=== PATIENT | male | born 1950 ===

== ENCOUNTER 2020-07-13 12:11 | Outpatient (REF) | payer MEDICARE, SELFPAY ==
[2020-07-18 12:10] LABS: Testosterone, Total 400 ng/dL (250-1100)
== END 2020-07-13 12:12 | disposition home or self-care (01) ==
LOC: HO.LAB 12:11
PROVIDERS: Visit Provider Urology
DX: E29.1 Testicular hypofunction (principal); Z12.5 Encounter for screening for malignant neoplasm of prostate
CPT/HCPCS: 36415; 84153; 84403

== ENCOUNTER → 2020-08-12 10:05 | Outpatient (BNVA) | payer MEDICARE, SELFPAY | PROVIDERS: Visit Provider Student in an Organized Health Care Education/Training Program | DX: M19.041 Primary osteoarthritis, right hand (principal); M19.042 Primary osteoarthritis, left hand; G56.03 Carpal tunnel syndrome, bilateral upper limbs | CPT/HCPCS: 99212 ==

== ENCOUNTER → 2020-11-12 12:52 | Outpatient (BNVA) | payer MEDICARE, SELFPAY | PROVIDERS: PCP Nurse Practitioner Primary Care; Visit Provider Student in an Organized Health Care Education/Training Program | DX: M19.042 Primary osteoarthritis, left hand (principal); M19.041 Primary osteoarthritis, right hand; G56.03 Carpal tunnel syndrome, bilateral upper limbs | CPT/HCPCS: 99212 ==

== ENCOUNTER → 2020-11-19 13:10 | Outpatient (BNVA) | payer MEDICARE, SELFPAY | PROVIDERS: PCP Nurse Practitioner Primary Care; Visit Provider Internal Medicine | DX: I25.10 Atherosclerotic heart disease of native coronary artery without angina pectoris (principal); I10 Essential (primary) hypertension; E11.8 Type 2 diabetes mellitus with unspecified complications; E78.5 Hyperlipidemia, unspecified | CPT/HCPCS: 99212 ==

== ENCOUNTER 2020-12-03 07:19 | Outpatient (REF) | payer MEDICARE, SELFPAY ==
--- NOTE | ~2020-12-03 | US_ITS ---
EXAMINATION: US RETROPERITONEAL LIMITED (AORTA) CLINICAL INFORMATION: Nicotine dependence. COMPARISON: None TECHNIQUE: Martinez-scale, color Doppler and spectral Doppler evaluation of the abdominal aorta. FINDINGS: The aorta is normal. The measurements of the aorta in maximum AP and transverse dimensions respectively are as follows: Proximal: 2.2 x 2.7 cm. Mid: 1.7 x 1.8 cm. Distal: 1.6 x 1.6 cm. PSV: 1.51 cm/s. The measurements of the common iliac arteries in maximum AP and TRV dimensions are as follows: Right Common Iliac Artery: 0.9 x 1.3 cm. Left Common Iliac Artery: 0.6 x 0.2 cm. US/US aorta IMPRESSION: No evidence of aneurysmal dilatation of the aorta..
== END 2020-12-03 07:20 | disposition home or self-care (01) ==
LOC: HO.US 07:19
PROVIDERS: Visit Provider Nurse Practitioner Primary Care
DX: Z13.6 Encounter for screening for cardiovascular disorders (principal); F17.210 Nicotine dependence, cigarettes, uncomplicated
CPT/HCPCS: 76775

== ENCOUNTER 2020-12-07 09:49 | Outpatient (REF) | payer MEDICARE, SELFPAY | END 2020-12-07 09:50 | disposition home or self-care (01) | LOC: HO.HOSX 09:49 | PROVIDERS: Visit Provider Orthopaedic Surgery | DX: Z13.89 Encounter for screening for other disorder (principal) ==

== ENCOUNTER 2020-12-09 09:29 | Outpatient (REF) | payer MEDICARE, SELFPAY ==
--- NOTE | ~2020-12-09 | XR_ITS ---
EXAMINATION: XR HAND, LEFT CLINICAL INFORMATION: Pain COMPARISON: Previous x-ray July 2019 TECHNIQUE: PA, lateral, and oblique views of the left hand. FINDINGS: Bone alignment is normal. No acute fracture or dislocation is seen. There is cortical thickening or osteophyte projecting off the radial or lateral side of the radial metaphysis just proximal to the radial styloid that is unchanged. It is uncertain whether this could be related to old trauma. There is evidence of mild arthritis at the IP joints with joint space narrowing and osteophyte formation. Carpal bones are normal. Soft tissues are unremarkable. XR/XR hand LT min 3V IMPRESSION: Mild arthritis at the IP joints.
== END 2020-12-09 09:30 | disposition home or self-care (01) ==
LOC: HO.XRAY 09:29
PROVIDERS: PCP Nurse Practitioner Primary Care; Visit Provider Orthopaedic Surgery
DX: M79.642 Pain in left hand (principal)
CPT/HCPCS: 73130

== ENCOUNTER 2020-12-15 09:51 | Outpatient (REF) | payer MEDICARE, SELFPAY | END 2020-12-15 09:52 | disposition home or self-care (01) | LOC: HO.LAB 09:51 | PROVIDERS: Visit Provider Internal Medicine | DX: Z20.822 Contact with and (suspected) exposure to COVID-19 (principal) | CPT/HCPCS: 36415; C9803; U0003; U0005 ==

== ENCOUNTER 2021-01-28 08:46 | Outpatient (REF) | payer MEDICARE, SELFPAY ==
--- NOTE | 2021-01-28 08:51 | EMG_ITS ---
Bilateral median and ulnar motor and sensory studies were performed. Bilateral radial sensory study was performed and paraspinal muscles were tested with a needle. 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 It was also somewhat asymmetric. I recommend investigating for underlying autoimmune or infective etiologies. MD BRITANY Douglas/ELBA / [id number]
== END 2021-01-28 08:47 | disposition home or self-care (01) ==
LOC: HO.NEURO 08:46
PROVIDERS: Visit Provider Student in an Organized Health Care Education/Training Program
DX: G56.03 Carpal tunnel syndrome, bilateral upper limbs (principal)
CPT/HCPCS: 95886; 95911

== ENCOUNTER 2021-02-02 11:35 | Outpatient (REF) | payer MEDICARE, SELFPAY ==
[2021-02-02 13:00] LABS: MANUAL DIFF FLAG NO
[2021-02-02 13:08] LABS: Basophils Absolute Auto 0.1 X10*3/uL (0.0-0.2); Basophils Percent Auto 0.5 % (0-2); Eosinophils Absolute Auto 0.2 X10*3/uL (0.0-0.4); Eosinophils Percent Auto 1.8 % (0-4); Hematocrit 42.5 % (42-52); Hemoglobin 13.9 g/dl (14.0-18.0); Imm Gran Abs Auto 0.04 X10*3/uL (0.00-0.03); Imm Gran Pct Auto 0.4 % (0.0-0.4); Lymphocytes Absolute Auto 2.2 X10*3/uL (1.2-4.9); Lymphocytes Percent Auto 21.9 % (20-40); Mean Corpuscular HGB Conc 32.7 g/dl (31.0-36.0); Mean Corpuscular Hemoglobin 32.4 pg (27.0-33.0); Mean Corpuscular Volume 99.1 fL (80-98); Mean Platelet Volume 10.4 fL (9.4-12.4); Monocytes Absolute Auto 0.8 X10*3/uL (0.1-1.2); Monocytes Percent Auto 8.1 % (2-11); Neutrophils Absolute Auto 6.8 X10*3/uL (2.0-8.3); Neutrophils Percent Auto 67.3 % (45-73); Platelet Count 225 X10*3/uL (160-400); Red Blood Count 4.29 X10*6/uL (4.60-5.80); Red Cell Distribution Width 13.2 % (11.0-16.0); White Blood Count 10.1 X10*3/uL (4.8-10.8)
[2021-02-02 13:32] LABS: Alanine Aminotransferase 18 U/L (0-40); Albumin Level 4.1 g/dL (3.5-5.0); Alkaline Phosphatase 103 U/L (39-117); Anion Gap 12 (12-20); Aspartate Amino Transferase 19 U/L (5-37); Bilirubin Total 0.9 mg/dL (0.0-1.0); Blood Urea Nitrogen 24 mg/dL (9-16); C Reactive Protein 0.06 mg/dL (< or = 0.50); Calcium 9.5 mg/dL (8.4-10.2); Carbon Dioxide 29 mmol/L (22-29); Chloride 103 mmol/L (96-108); Estimated Glomerular Filt Rate 55; Glucose Random 126 mg/dL (60-115); Potassium 5.2 mmol/L (3.3-5.1); Rheumatoid Factor < 15.0 IU/mL (<15.0); Sodium 139 mmol/L (135-145); Total Protein 6.3 g/dL (6.5-8.0)
[2021-02-02 14:34] LABS: Erythrocyte Sedimentation Rate 14 MM/HR (0-15)
[2021-02-03 10:27] LABS: Antibody to SS-A Antigen <1.0 NEG AI (<1.0 NEG); Antibody to SS-B Antigen <1.0 NEG AI (<1.0 NEG)
[2021-02-03 15:22] LABS: Cyclic Citrullinated Peptide <16 UNITS
[2021-02-08 16:02] LABS: Anti Nuclear Antibody Screen NEGATIVE (NEGATIVE)
== END 2021-02-02 11:36 | disposition home or self-care (01) ==
LOC: HO.LAB 11:35
PROVIDERS: Absent Provider Internal Medicine Nephrology; PCP Nurse Practitioner Primary Care; Referring Provider Student in an Organized Health Care Education/Training Program; Visit Provider Nurse Practitioner Primary Care
DX: I12.9 Hypertensive chronic kidney disease with stage 1 through stage 4 chronic kidney disease, or unspecified chronic kidney disease (principal); N18.30 Chronic kidney disease, stage 3 unspecified; E78.5 Hyperlipidemia, unspecified; I73.9 Peripheral vascular disease, unspecified; M19.041 Primary osteoarthritis, right hand; E11.29 Type 2 diabetes mellitus with other diabetic kidney complication; E11.22 Type 2 diabetes mellitus with diabetic chronic kidney disease
CPT/HCPCS: 36415; 80053; 82550; 85025; 85652; 86038; 86039; 86140; 86200; 86235; 86431

== ENCOUNTER 2021-02-12 09:35 | Day surgery (SDC) | payer MEDICARE, SELFPAY ==
--- NOTE | ~2021-02-12 | FL_ITS ---
EXAMINATION: FLUOROSCOPY-GUIDED LUMBAR PUNCTURE CLINICAL INFORMATION: Peripheral neuropathy. COMPARISON: None TECHNIQUE: Following explaining fluoroscopy-guided lumbar puncture procedure, benefits and risk, a written consent was obtained. Patient was placed prone on fluoroscopy table and and a marker placed at the site of puncture. Low back area and the marked site was cleaned and draped in usual sterile manner. 1% lidocaine was injected at puncture site. A 20-gauge spinal needle was then inserted from a left-sided approach intrathecally at the L2-L3 disc level. After observing CSF return, patient was quickly placed in left lateral decubitus view. Opening CSF pressure was obtained. Subsequently fluid was collected in 4 test tubes. Postprocedure stylet was reintroduced and needle removed. Complete hemostasis achieved at puncture site. Patient tolerated procedure extremely well. FINDINGS: On preliminary AP and lateral imaging of lumbar spine there are bilateral pedicular screws at L4 and S1 vertebra with integrating felicia for fusion. The opening CSF pressure measures 10 cm of water. Approximately 9 mL of clear CSF fluid was collected in 4 test tubes and sent to lab as per physician request. FLUOROSCOPY TIME: 0.7 minutes DOSE AREA PRODUCT: 7.138 uGy-m2 (microgray-meter squared) FL/FL guided lumbar puncture LP IMPRESSION: Successful fluoroscopy-guided lumbar puncture performed with opening CSF pressure of 10 cm of water. Clear 9 mL CSF collected in 4 test tubes and sent to lab for further evaluation as per physician request.
[2021-02-12 10:00] VITALS: BP 123/59; PULSE 71; RESP 18; TEMP 36.3; O2SAT 95
[2021-02-12 10:08] LABS: Glucose, Whole Blood 100 mg/dL (60-115)
[2021-02-12 10:21] LABS: MANUAL DIFF FLAG NO
[2021-02-12 10:23] LABS: Basophils Absolute Auto 0.1 X10*3/uL (0.0-0.2); Basophils Percent Auto 0.5 % (0-2); Eosinophils Absolute Auto 0.3 X10*3/uL (0.0-0.4); Eosinophils Percent Auto 2.3 % (0-4); Hematocrit 40.5 % (42-52); Hemoglobin 13.5 g/dl (14.0-18.0); Imm Gran Abs Auto 0.04 X10*3/uL (0.00-0.03); Imm Gran Pct Auto 0.4 % (0.0-0.4); Lymphocytes Absolute Auto 2.8 X10*3/uL (1.2-4.9); Lymphocytes Percent Auto 26.5 % (20-40); Mean Corpuscular HGB Conc 33.3 g/dl (31.0-36.0); Mean Corpuscular Hemoglobin 33.1 pg (27.0-33.0); Mean Corpuscular Volume 99.3 fL (80-98); Mean Platelet Volume 9.6 fL (9.4-12.4); Monocytes Absolute Auto 0.9 X10*3/uL (0.1-1.2); Monocytes Percent Auto 8.7 % (2-11); Neutrophils Absolute Auto 6.6 X10*3/uL (2.0-8.3); Neutrophils Percent Auto 61.6 % (45-73); Platelet Count 209 X10*3/uL (160-400); Red Blood Count 4.08 X10*6/uL (4.60-5.80); Red Cell Distribution Width 12.7 % (11.0-16.0); White Blood Count 10.7 X10*3/uL (4.8-10.8)
[2021-02-12 10:26] VITALS: BMI 31.4
[2021-02-12 10:31] LABS: INTERNATIONAL NORM RATIO 1.1 (0.9-1.1); Prothrombin Time 12.8 SEC (10.8-13.0)
[2021-02-12 10:33] LABS: Partial Thromboplastin Time 35.2 SEC (24.1-38.0)
[2021-02-12 12:15] VITALS: BP 124/75; PULSE 67; RESP 17; TEMP 37.1; O2SAT 96
[2021-02-12 12:45] VITALS: BP 126/67; PULSE 86; RESP 17; O2SAT 95
--- NOTE | 2021-02-12 13:20 | PC.NURSE ---
This lyric writer ordered patient lunch intructed patient to remain flat while eating but continued to sit up and not following directions. Told this rn he wants to leave call the doctor. Dr. Amaya notified and stated if patient insist on leaving he has to leave AMA. Yariel the bilingual interpreter at bedside to assit with explaining to patient.
[2021-02-12 13:22] LABS: CSF Appearance Clear, Colorless; CSF Tube # 1
[2021-02-12 13:31] LABS: Glucose CSF 67 mg/dL; Total Protein CSF 45.3 mg/dL (15-45)
[2021-02-12 13:42] VITALS: BP 118/59; PULSE 78; RESP 17; O2SAT 96
[2021-02-12 14:11] LABS: Appearance CSF CLEAR; CSF Tube # 4; Color CSF COLORLESS; Lymphocytes CSF 100 %; Red Blood Cell CSF 1 MM*3; White Blood Cell CSF 1 MM*3
[2021-02-12 14:14] VITALS: BP 105/37; PULSE 69; RESP 18; O2SAT 95
[2021-02-12 14:44] VITALS: BP 124/64; PULSE 69; RESP 18; TEMP 36.7; O2SAT 96
== END 2021-02-12 15:05 | disposition home or self-care (01) ==
PROVIDERS: Psychiatry & Neurology Neurology; Radiology Diagnostic Radiology; PCP Nurse Practitioner Primary Care; Visit Provider Radiology Diagnostic Radiology
PROC: 009U3ZZ Drainage of Spinal Canal, Percutaneous Approach (ICD-10-PCS; CPT 62270; principal; 2021-02-12 11:00)
DX: G62.9 Polyneuropathy, unspecified (principal); E11.22 Type 2 diabetes mellitus with diabetic chronic kidney disease; Z79.4 Long term (current) use of insulin; N18.9 Chronic kidney disease, unspecified; G25.81 Restless legs syndrome
CPT/HCPCS: 36415; 62328; 82945; 82947; 84157; 85025; 85610; 85730; 87015; 87070; 87205; 89051

== ENCOUNTER → 2021-03-09 12:45 | Outpatient (BNVA) | payer MEDICARE, SELFPAY | PROVIDERS: Visit Provider Urology | DX: Z13.89 Encounter for screening for other disorder (principal) | CPT/HCPCS: Q3014 ==

== ENCOUNTER 2021-04-13 21:18 | Emergency (ER) | payer MEDICARE, SELFPAY ==
--- NOTE | ~2021-04-13 | XR_ITS ---
EXAMINATION: XR CHEST CLINICAL INFORMATION: Bilateral lower extremity swelling. COMPARISON: 12/30/2018 TECHNIQUE: PA and lateral views of the chest were obtained. FINDINGS: Linear opacity and volume loss in the right lung base likely correspond atelectasis in the right middle lobe. Superimposed consolidation is possible. No pleural effusion. Left lung is clear. No pneumothorax. Cardiac and mediastinal contours are normal aside from calcific atherosclerosis in the thoracic aorta. Pulmonary vascular structures normal. No acute osseous findings XR/XR chest 2V IMPRESSION: Linear platelike atelectasis in the lateral segment of the right middle lobe.
[2021-04-13 21:20] VITALS: BP 109/53; PULSE 83; RESP 18; TEMP 37.1; O2SAT 95; BMI 31.4
--- NOTE | 2021-04-13 22:23 | ECG_ITS ---
Test Reason : EDEMA Blood Pressure : / mmHG Vent. Rate : 071 BPM Atrial Rate : 071 BPM P-R Int : 186 ms QRS Dur : 078 ms QT Int : 378 ms P-R-T Axes : 045 019 034 degrees QTc Int : 410 ms Sinus rhythm with Premature atrial complexes Otherwise normal ECG When compared with ECG of 14-MAR-2020 11:00, Premature atrial complexes are now Present Referred By: Phil Bernal Electronically Signed By:TRACEY SHARP
--- NOTE | 2021-04-14 00:32 | PC.NURSE ---
IV PLACED TO LEFT FA, LABS DRAWN TO LAB. PT RESTING IN STRETCHER W/O COMPLAINTS. WILL CONTINUE TO MONITOR PT.
[2021-04-14 00:33] LABS: MANUAL DIFF FLAG NO
[2021-04-14 00:34] LABS: Basophils Absolute Auto 0.1 X10*3/uL (0.0-0.2); Basophils Percent Auto 0.5 % (0-2); Eosinophils Absolute Auto 0.3 X10*3/uL (0.0-0.4); Eosinophils Percent Auto 2.9 % (0-4); Hematocrit 38.2 % (42-52); Hemoglobin 13.2 g/dl (14.0-18.0); Imm Gran Abs Auto 0.05 X10*3/uL (0.00-0.03); Imm Gran Pct Auto 0.5 % (0.0-0.4); Lymphocytes Absolute Auto 3.2 X10*3/uL (1.2-4.9); Lymphocytes Percent Auto 30.6 % (20-40); Mean Corpuscular HGB Conc 34.6 g/dl (31.0-36.0); Mean Corpuscular Hemoglobin 33.1 pg (27.0-33.0); Mean Corpuscular Volume 95.7 fL (80-98); Mean Platelet Volume 9.7 fL (9.4-12.4); Monocytes Percent Auto 9.7 % (2-11); Neutrophils Absolute Auto 5.8 X10*3/uL (2.0-8.3); Neutrophils Percent Auto 55.8 % (45-73); Platelet Count 200 X10*3/uL (160-400); Red Blood Count 3.99 X10*6/uL (4.60-5.80); Red Cell Distribution Width 12.8 % (11.0-16.0); White Blood Count 10.3 X10*3/uL (4.8-10.8)
[2021-04-14 01:02] LABS: Alanine Aminotransferase 12 U/L (0-40); Albumin Level 3.8 g/dL (3.5-5.0); Alkaline Phosphatase 96 U/L (39-117); Anion Gap 13 (12-20); Aspartate Amino Transferase 15 U/L (5-37); Bilirubin Total 0.6 mg/dL (0.0-1.0); Blood Urea Nitrogen 29 mg/dL (9-16); Calcium 8.9 mg/dL (8.4-10.2); Carbon Dioxide 27 mmol/L (22-29); Chloride 104 mmol/L (96-108); Creatinine Clr Calc Pharmacy 43.8; Estimated Glomerular Filt Rate 43; Glucose Random 107 mg/dL (60-115); Potassium 4.5 mmol/L (3.3-5.1); Sodium 139 mmol/L (135-145); Total Protein 6.1 g/dL (6.5-8.0)
[2021-04-14 01:07] LABS: B Type Natriuretic Peptide < 10 pg/mL (<100); Troponin-I High Sensitivity 13.3 ng/L (<3.5-35.0)
[2021-04-14] MEDS: Acetaminophen 325 MG TABLET 975 MG PO (01:15)
--- NOTE | 2021-04-14 01:24 | ED.GENADULT ---
HPI - General Adult General Chief complaint: Extremity Injury, Lower Stated complaint: swollen feet Time Seen by Provider: 04/13/21 22:15 Source: patient Mode of arrival: ambulatory Limitations: no limitations History of Present Illness HPI narrative: 71-year-old male who presents emergency department for evaluation of bilateral lower extremity swelling x1 week. The patient states that he has noted a gradual onset of increased swelling in his lower extremities. He states that today is having pain in his legs secondary to swelling, describes the pain as a constant, dull ache which is worse with movement. He denied chest pain, orthopnea or dyspnea on exertion. He states he has had a cough which is occasionally productive of clear to green sputum. He denied fever or chills. Patient states that he had similar swelling in his legs approximately 1 year prior. He states he does have some mild shortness of breath and used inhaler at home which improved his symptoms. Related Data Home Medications Medication Instructions Recorded Confirmed acetaminophen 500 mg tablet 500 mg PO Q6H PRN 08/12/20 03/09/21 aspirin 81 mg tablet,delayed 81 mg PO DAILY 08/12/20 03/09/21 release cholecalciferol (vitamin D3) 50 50 mcg PO DAILY 08/12/20 03/09/21 mcg (2,000 unit) capsule cilostazol 100 mg tablet 100 mg PO BID 08/12/20 03/09/21 citalopram 20 mg tablet 20 mg PO DAILY 08/12/20 03/09/21 docusate sodium 100 mg capsule 100 mg PO DAILY 08/12/20 03/09/21 ferrous sulfate 325 mg (65 mg 325 mg PO BID 08/12/20 03/09/21 iron) tablet hydrochlorothiazide 12.5 mg tablet 12.5 mg PO DAILY 08/12/20 03/09/21 insulin aspart U-100 100 unit/mL 5 unit SUBCUT DIRECTED ml 08/12/20 03/09/21 (3 mL) subcutaneous pen insulin glargine 100 unit/mL 10 unit SUBCUT DIRECTED ml 08/12/20 03/09/21 subcutaneous solution loratadine 10 mg tablet 10 mg PO DAILY 08/12/20 03/09/21 simvastatin 20 mg tablet 20 mg PO DAILY 08/12/20 03/09/21 tamsulosin 0.4 mg capsule 0.4 mg PO DAILY 08/12/20 03/09/21 testosterone 20.25 mg/1.25 gram 2 pump TOPICAL DAILY 08/12/20 03/09/21 (1.62 %) transdermal gel pump trazodone 100 mg tablet 200 mg PO BEDTIME PRN tab 08/12/20 03/09/21 amlodipine 5 mg tablet 5 mg PO QAM 11/19/20 03/09/21 calcitriol 0.5 mcg capsule 0 mcg PO 11/19/20 03/09/21 gabapentin 600 mg tablet 600 mg PO BEDTIME 11/19/20 03/09/21 insulin glargine 100 unit/mL (3 8 unit SUBCUT QAM 11/19/20 03/09/21 mL) subcutaneous pen losartan 50 mg tablet 50 mg PO DAILY tab 11/19/20 03/09/21 pramipexole 1 mg tablet 1 mg PO BEDTIME 11/19/20 03/09/21 pravastatin 40 mg tablet 40 mg PO BEDTIME 11/19/20 03/09/21 alcohol swabs 0 pad TOPICAL 03/09/21 03/09/21 blood sugar diagnostic #10 ea 03/09/21 03/09/21 enalapril maleate 20 mg tablet 20 mg PO 03/09/21 03/09/21 ergocalciferol (vitamin D2) 1,250 1,250 mcg PO QWEEK 03/09/21 03/09/21 mcg (50,000 unit) capsule hydrocortisone 2.5 % topical cream TOPICAL BID 03/09/21 03/09/21 with perineal applicator lancets 33 gauge #100 ea 03/09/21 03/09/21 lanolin alcohols-mineral appl TOPICAL 03/09/21 03/09/21 oil-w.petrolatum-ceresin topical cream lanolin-mineral oil lotion TOPICAL 03/09/21 03/09/21 pen needle, diabetic 31 gauge x #50 ea 03/09/21 03/09/21/ sennosides 8.6 mg tablet 17.2 mg PO DAILY PRN 03/09/21 03/09/21 Previous Rx's Medication Instructions Recorded arm brace #2 ea 08/12/20 tramadol 50 mg tablet 50 mg PO TID #90 tab 10/13/20 testosterone 20.25 mg/1.25 gram 2 pump TRANSDERMAL DAILY 30 Days 03/09/21 (1.62 %) transdermal gel pump #75 g benzonatate 200 mg PO TID PRN 4 Days #12 cap 04/14/21 furosemide [Lasix] 40 mg PO DAILY #14 tab 04/14/21 Allergies Allergy/AdvReac Type Severity Reaction Status Date / Time No Known Allergies Allergy Verified 04/13/21 21:20 [No Known Allergies*] Review of Systems Review of Systems: Yes all other systems are reviewed and are negative [facility] Past Medical History [facility] Narrative: social history: The patient occasionally smokes cigarettes times many years. He denies alcohol and drug use. Medical History Atherosclerotic cardiovascular disease Essential hypertension Other and unspecified hyperlipidemia Primary osteoarthritis, left hand Primary osteoarthritis, right hand Type 2 diabetes mellitus with unspecified complications Surgical History History of cardiac catheterization (~11/06/18) Family History Family History Mother No problems noted. Mother No problems noted. Social History Social History Alcohol intake: never Advance Directives: No Advance Directives Information Provided: Yes Physical Exam Vital Signs: Vital Signs: Last Vital Signs Temp 98.7 F 04/13/21 21:20 Pulse 83 04/13/21 21:20 Resp 18 04/13/21 21:20 BP 109/53 L 04/13/21 21:20 Pulse Ox 95 04/13/21 21:20 Body Mass Index 31.4 Const: General: cooperative and healthy appearing Orientation/consciousness: oriented to person and oriented to place Limitations: no limitations HENMT: Head: Yes normal to inspection, Yes normocephalic and Yes atraumatic Ears: external ears normal General nose exam: Normal external nose present Face and sinus: Yes normal facial exam Mouth: Normal oral and palatal mucosa present Throat: Yes posterior oropharynx normal Eyes: Periorbital: periorbital findings normal Eyelids: Yes eyelids normal Conjunctivae: conjunctivae normal Sclerae: sclerae normal Corneas: corneas normal Pupils: Equal, round and reactive pupils present Direct Ophthalmoscopy: normal light reflex Neck: Neck: Yes full ROM, Yes no lymphadenopathy, Yes no meningeal signs, Yes trachea midline and Yes supple Chest: Chest palpation & inspection: normal inspection of the chest and normal palpation of entire chest wall Resp: Effort & Inspection: normal respiratory effort and able to speak in complete sentences Auscultation: clear to auscultation bilaterally Cardio: Rate: regular rate Rhythm: regular rhythm Heart sounds: S1 normal heart sound present, S2 normal heart sound present and no murmurs GI: Inspection: Yes normal to inspection Palpation (GI): Soft to palpation, nontender, no guarding, not rigid and No hepatosplenomegaly present : General: Yes no CVA tenderness Back/Spine/Pelvis: Back: no CVA tenderness Cervical Spine: normal cervical lordosis Thoracic/Lumbar Spine: thoracic and lumbar spine normal to inspection Skin: Lesions: no lesions Rashes: no rashes Wounds: no wounds Neuro: General: oriented to person, oriented to place and no meningeal signs Cranial nerves: Yes CN's II-XII intact bilaterally and Yes Equal, round and reactive pupils present Cognition (Neuro): normal cognition Motor exam (neuro): 5/5 motor strength present throughout Extrem: Other: 1+ pitting edema to the lower extremities to just below the knee, symmetric bilaterally General: Yes full ROM Psych: Appearance: well kempt Mental Status: mental status grossly normal Speech and movement: Normal speech and movement present Affect: normal affect Attitude: cooperative Thought process: Normal thought process present Thought content: Normal thought content present Course Course Course Narrative: 48-year-old male who presents emergency department for evaluation of bilateral peripheral edema x1 week with cough and shortness of breath. Physical examination did reveal bilateral 1+ pitting edema which was symmetric. Exam was otherwise unremarkable. The laboratory evaluation did reveal an elevated BUN and creatinine of 29 and 1.61, this is slightly above his baseline. Twelve EKG was unremarkable. the patient will be started on Lasix 40 mg once a day for 2 weeks to treat his peripheral edema. 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 Patient also has a cough and is requesting a cough suppressant therefore he will be started on Tessalon Perles 200 mg 3 times a day as needed for cough. The patient was given verbal and printed instructions prior to discharge. The patient was advised to follow-up with their PCP in 2 days and to return to the emergency department if their symptoms get worse or if they develop any new symptoms that are concerning to them Medical Decision Making Lab Data Lab results reviewed: Yes I reviewed the patient's lab results. Result diagrams: 04/14/21 00:22 04/14/21 00:22 Labs: Lab Results 04/14/21 04/14/21 04/14/21 Range/Units 00: 00:22 00:22 WBC 10.3 (4.8-10.8) X10*3/uL RBC 3.99 L (4.60-5.80) X10*6/uL Hgb 13.2 L (14.0-18.0) g/dl Hct 38.2 L (42-52) % MCV 95.7 (80-98) fL MCH 33.1 H (27.0-33.0) pg MCHC 34.6 (31.0-36.0) g/dl RDW 12.8 (11.0-16.0) % Plt Count 200 (160-400) X10*3/uL MPV 9.7 (9.4-12.4) fL Immature Gran % (Auto) 0.5 H (0.0-0.4) % Neut % (Auto) 55.8 (45-73) % Lymph % (Auto) 30.6 (20-40) % Appling % (Auto) 9.7 (2-11) % Eos % (Auto) 2.9 (0-4) % Baso % (Auto) 0.5 (0-2) % Lymph # (Auto) 3.2 (1.2-4.9) X10*3/uL Appling # (Auto) 1.0 (0.1-1.2) X10*3/uL Eos # (Auto) 0.3 (0.0-0.4) X10*3/uL Baso # (Auto) 0.1 (0.0-0.2) X10*3/uL Abs Immat Gran (auto) 0.05 H (0.00-0.03) X10*3/uL Absolute Neuts (auto) 5.8 (2.0-8.3) X10*3/uL Absolute Nucleated RBC 0.000 (0.0-0.012) X10*3/uL Nucleated RBC % (auto) 0.0 (0.0-0.2) /100WBC Sodium 139 (135-145) mmol/L Potassium 4.5 (3.3-5.1) mmol/L Chloride 104 (96-108) mmol/L Carbon Dioxide 27 (22-29) mmol/L Anion Gap 13 (12-20) BUN 29 H (9-16) mg/dL Creatinine 1.61 H (0.5-1.4) mg/dL Estim Creat Clear Calc 43.8 Estimated GFR 43 Random Glucose 107 (60-115) mg/dL Calcium 8.9 D (8.4-10.2) mg/dL Total Bilirubin 0.6 (0.0-1.0) mg/dL AST 15 (5-37) U/L ALT 12 (0-40) U/L Alkaline Phosphatase 96 (39-117) U/L Troponin I High Sens 13.3 (<3.5-35.0) ng/L B-Natriuretic Peptide < 10 (<100) pg/mL Total Protein 6.1 L (6.5-8.0) g/dL Albumin 3.8 (3.5-5.0) g/dL ECG Data Attestation: I personally reviewed and interpreted this ECG as follows: Interpretation: 2239 : Normal sinus rhythm with a rate of 71, normal [place] interval, normal QRS duration, normal QTC interval, no ST segment elevation, no ST segment depression, Q-wave in V1, Occasional PAC, no PVCs , no old EKG for comparison. Discharge Plan Discharge Clinical Impression: Edema, peripheral Patient Disposition: Home, Self-Care Instructions: Edema (ED) Additional Instructions: Your kidney numbers were slightly above your baseline numbers, you should follow-up with your kidney doctor in 2-3 weeks to have these tests repeated. I am starting you on a water pill/diuretic to help get fluid off of your legs. Take Lasix (furosemide) 40 mg once a day for 2 weeks. While you are taking Lasix, you need to restrict the amount of fluid that you take in to help get the fluid out of your legs. If your legs return to a normal size before 2 weeks then you can stop taking the Lasix. Take Tessalon Perles 200 mg, 1 pill 3 times a day as needed for cough. Follow-up with your doctor in 2 days. Please return to the emergency department if your symptoms get worse or if you develop any symptoms that are concerning to you. Prescriptions: New furosemide [Lasix] 40 mg tablet 40 mg PO DAILY Qty: 14 RF: 0 benzonatate 200 mg capsule 200 mg PO TID PRN (Reason: cough) 4 Days Qty: 12 RF: 0 No Action tramadol 50 mg tablet 50 mg PO TID Qty: 90 RF: 5 amlodipine 5 mg tablet 5 mg PO QAM RF: 0 pravastatin 40 mg tablet 40 mg PO BEDTIME RF: 0 pramipexole 1 mg tablet 1 mg PO BEDTIME RF: 0 calcitriol 0.5 mcg capsule 0 mcg PO RF: 0 gabapentin 600 mg tablet 600 mg PO BEDTIME RF: 0 Lantus Solostar U-100 Insulin 100 unit/mL (3 mL) insulin pen 8 unit subcut QAM RF: 0 losartan 50 mg tablet 50 mg PO DAILY RF: 0 aspirin [Adult Low Dose Aspirin] 81 mg tablet,delayed release (DR/EC) 81 mg PO DAILY RF: 0 acetaminophen [Tylenol Extra Strength] 500 mg tablet 500 mg PO Q6H PRNRF: 0 cilostazol 100 mg tablet 100 mg PO BID RF: 0 ferrous sulfate 325 mg (65 mg iron) tablet 325 mg PO BID RF: 0 loratadine [Allergy Relief (loratadine)] 10 mg tablet 10 mg PO DAILY RF: 0 Lantus U-100 Insulin 100 unit/mL solution 10 unit subcut DIRECTED RF: 0 insulin aspart U-100 [Novolog Flexpen U-100 Insulin] 100 unit/mL (3 mL) insulin pen 5 unit subcut DIRECTED RF: 0 tamsulosin 0.4 mg capsule 0.4 mg PO DAILY RF: 0 cholecalciferol (vitamin D3) 50 mcg (2,000 unit) capsule 50 mcg PO DAILY RF: 0 trazodone 100 mg tablet 200 mg PO BEDTIME PRNRF: 0 docusate sodium [Colace] 100 mg capsule 100 mg PO DAILY RF: 0 citalopram 20 mg tablet 20 mg PO DAILY RF: 0 simvastatin 20 mg tablet 20 mg PO DAILY RF: 0 hydrochlorothiazide 12.5 mg tablet 12.5 mg PO DAILY RF: 0 testosterone [AndroGel] 20.25 mg/1.25 gram (1.62 %) gel in metered-dose pump 2 pump topical DAILY RF: 0 (DME) Wrist Brace Large Misc See Rx Instructions .ROUTE .MEDSUPPLY Qty: 2 RF: 0 ergocalciferol (vitamin D2) 1,250 mcg (50,000 unit) capsule 1,250 mcg PO QWEEK RF: 0 (DME) FreeStyle Lite Strips Strip See Rx Instructions strip Not Applicable BID Qty: 10 RF: 0 Minerin Creme Cream topical RF: 0 hydrocortisone 2.5 % cream with perineal applicator topical BID RF: 0 sennosides 8.6 mg tablet 17.2 mg PO DAILY PRN (Reason: constipation) RF: 0 (DME) lancets 33 gauge misc See Rx Instructions ea Not Applicable BID Qty: 100 RF: 0 (DME) pen needle, diabetic 31 gauge x 3/16 needle See Rx Instructions ea .ROUTE BID Qty: 50 RF: 0 alcohol swabs Pads, Medicated 0 pad topical RF: 0 Thera-Derm Lotion topical RF: 0 enalapril maleate 20 mg tablet 20 mg PO RF: 0 testosterone [AndroGel] 20.25 mg/1.25 gram (1.62 %) gel in metered-dose pump 2 pump transdermal DAILY 30 Days Qty: 75 RF: 5
[2021-04-14 01:28] VITALS: BP 134/72; PULSE 71; RESP 17; O2SAT 98
[2021-04-14 02:08] LABS: Appearance Urine CLEAR; Color Urine YELLOW; Glucose Urine UA NEG (NEG); Leukocyte Esterase Urine NEG (NEG); Nitrite Urine NEG (NEG); Specific Gravity - Urine <= 1.005 (1.005-1.025); UACC Culture Trigger NO; Urine Blood NEG (NEG); Urine Ketones NEG (NEG); Urine Protein TRACE MG/DL (NEG-TRACE)
== END 2021-04-14 02:26 | disposition home or self-care (01) ==
PROVIDERS: Emergency Provider Emergency Medicine Emergency Medical Services
DX: R60.0 Localized edema (principal); M79.662 Pain in left lower leg; M79.661 Pain in right lower leg; R06.02 Shortness of breath; I10 Essential (primary) hypertension; E78.49 Other hyperlipidemia; E11.9 Type 2 diabetes mellitus without complications; Z79.82 Long term (current) use of aspirin; Z79.02 Long term (current) use of antithrombotics/antiplatelets; Z79.899 Other long term (current) drug therapy; Z79.4 Long term (current) use of insulin
CPT/HCPCS: 36415; 71046; 80053; 81003; 83880; 84484; 85025; 93005; 99283; 99284

== ENCOUNTER → 2021-04-20 09:05 | Outpatient (BNVA) | payer MEDICARE, SELFPAY | PROVIDERS: Visit Provider Surgery | DX: L72.3 Sebaceous cyst (principal) | CPT/HCPCS: 99202 ==

== ENCOUNTER 2021-06-04 09:48 | Outpatient (REF) | payer MEDICARE, SELFPAY ==
[2021-06-04 10:21] LABS: Hematocrit 37.8 % (42-52); Hemoglobin 12.9 g/dl (14.0-18.0); Mean Corpuscular HGB Conc 34.1 g/dl (31.0-36.0); Mean Corpuscular Volume 96.7 fL (80-98); Mean Platelet Volume 9.8 fL (9.4-12.4); Platelet Count 212 X10*3/uL (160-400); Red Blood Count 3.91 X10*6/uL (4.60-5.80); Red Cell Distribution Width 13.1 % (11.0-16.0); White Blood Count 11.4 X10*3/uL (4.8-10.8)
[2021-06-04 11:07] LABS: Prostate Specific Antigen 2.46 ng/mL (<0.05-4.0)
[2021-06-09 16:06] LABS: Testosterone, Total 195 ng/dL (250-1100)
== END 2021-06-04 09:49 | disposition home or self-care (01) ==
LOC: HO.LAB 09:48
PROVIDERS: PCP Nurse Practitioner Primary Care; Visit Provider Urology
DX: Z12.5 Encounter for screening for malignant neoplasm of prostate (principal); E29.1 Testicular hypofunction; N13.8 Other obstructive and reflux uropathy; N40.1 Benign prostatic hyperplasia with lower urinary tract symptoms
CPT/HCPCS: 36415; 84153; 84403; 85027; 99212

== ENCOUNTER → 2021-06-22 13:46 | Outpatient (BNVA) | payer MEDICARE, SELFPAY | PROVIDERS: PCP Nurse Practitioner Primary Care; Referring Provider Nurse Practitioner Primary Care; Visit Provider Surgery | DX: L72.3 Sebaceous cyst (principal) | CPT/HCPCS: 99212 ==

== ENCOUNTER 2021-06-27 13:00 | Emergency (ER) | payer MEDICARE, SELFPAY ==
[2021-06-27 13:13] VITALS: BP 126/49; PULSE 58; RESP 16; TEMP 36.4; O2SAT 98; BMI 31.4
== END 2021-06-27 16:31 | disposition left against medical advice (07) ==
PROVIDERS: Emergency Provider Emergency Medicine; PCP Nurse Practitioner Primary Care
DX: M79.671 Pain in right foot (principal)
CPT/HCPCS: 99281; 99282

== ENCOUNTER 2021-07-13 10:35 | Outpatient (REF) | payer MEDICARE, SELFPAY ==
[2021-07-13 11:05] VITALS: BMI 31.4
[2021-07-13 11:07] VITALS: BP 144/69; PULSE 88; RESP 20; TEMP 36.8
[2021-07-13 11:52] VITALS: BP 132/62; PULSE 73; RESP 18
--- NOTE | 2021-07-13 11:52 | P.OP_ITS ---
Operative Note Operative Note Date of Service: 07/13/21 Narrative: Preoperative diagnosis: Inclusion cyst left neck, left upper back, and midback Postoperative diagnosis: Same Procedure: Excision of epidermal inclusion cyst left neck, left upper back, and midback Surgeon: Donald Diehl MD Revenue Accountant: No physician Anesthesia: Local Indications for procedure: 71-year-old male patient with several epidermal inclusion cyst which are increasing in size and causing discomfort.. This includes a 2 cm cyst of the left neck, 2 cm cyst of the left upper back and a 2.5 cm cyst of the midback. Operative findings: Epidermal inclusion cyst as noted above without evidence of infection Specimen: Epidermal inclusion cyst x 3 of the left neck, left upper back, midback Estimated blood loss: 10 mL Complications: None Procedure details: Patient was placed in a right lateral decubitus position. The site of surgery as confirmed by the patient as noted above. Informed consent was assured. The skin was prepped with Betadine and draped in a sterile fashion. Local anesthesia consisting of 1% lidocaine with epinephrine was then infiltrated around each cyst. Beginning at the left neck a elliptical incision was created with a scalpel. This was then carried out through subcutaneous tissue and around the cyst wall using scalpel. The cyst was excised and sent to pathology for further examination. After assuring hemostasis the skin was closed using interrupted 4-0 nylon sutures. Attention was then directed to the left upper back cyst were again an elliptical incision oriented transversely was created. This was carried out through subcutaneous tissue and around the cyst wall. Sharp dissection was then used to excise the lesion completely and the lesion was sent to pathology for further examination. Hemostasis was assured using light pressure. Skin was then closed using interrupted 4-0 nylon sutures. Attention was then directed to the midback cyst where again local anesthesia was infiltrated circumferentially elliptical incision created with scalpel oriented longitudinally. The incision was carried down through subcutaneous tissue and around the cyst wall. The cyst wall was found to extend down deep into the subcutaneous tissue and just above muscle fascia. This was all excised and sent to pathology for further examination. After assuring adequate hemostasis the skin was closed using interrupted 4-0 nylon sutures. Sterile dressings consisting of 2 x 2 gauze and Tegaderm were then applied. The patient tolerated the procedure well. Sponge, instrument, needle counts were correct. Patient was discharged to home in stable condition.
== END 2021-07-13 10:36 | disposition home or self-care (01) ==
LOC: HO.MS 10:35
PROVIDERS: PCP Nurse Practitioner Primary Care; Visit Provider Surgery
PROC: (CPT 11422; principal; 2021-07-13 11:00)
DX: L72.0 Epidermal cyst (principal)
CPT/HCPCS: 11422; 11402; 11403; 88304

== ENCOUNTER → 2021-07-23 08:47 | Outpatient (BNVA) | payer MEDICARE, SELFPAY | PROVIDERS: PCP Nurse Practitioner Primary Care; Visit Provider Surgery | DX: M19.042 Primary osteoarthritis, left hand (principal); M19.041 Primary osteoarthritis, right hand; G56.03 Carpal tunnel syndrome, bilateral upper limbs; M25.561 Pain in right knee; E11.9 Type 2 diabetes mellitus without complications; I25.10 Atherosclerotic heart disease of native coronary artery without angina pectoris; I10 Essential (primary) hypertension; E78.5 Hyperlipidemia, unspecified; F17.200 Nicotine dependence, unspecified, uncomplicated; Z98.890 Other specified postprocedural states; Z79.4 Long term (current) use of insulin; Z79.899 Other long term (current) drug therapy | CPT/HCPCS: 99212 ==

== ENCOUNTER 2021-08-18 09:18 | Outpatient (REF) | payer MEDICARE, SELFPAY ==
[2021-08-18 10:31] LABS: Hematocrit 43.8 % (42.0-52.0); Hemoglobin 14.3 g/dl (14.0-18.0); Mean Corpuscular HGB Conc 32.6 g/dl (31.0-36.0); Mean Corpuscular Hemoglobin 32.5 pg (27.0-33.0); Mean Corpuscular Volume 99.5 fL (80.0-98.0); Platelet Count 215 X10*3/uL (160-400); Red Cell Distribution Width 13.2 % (11.0-16.0); White Blood Count 9.6 X10*3/uL (4.8-10.8)
[2021-08-18 10:44] LABS: Anion Gap 10 (12-20); Blood Urea Nitrogen 34 mg/dL (9-16); Calcium 9.5 mg/dL (8.4-10.2); Carbon Dioxide 32 mmol/L (22-29); Chloride 102 mmol/L (96-108); Estimated Glomerular Filt Rate 41; Glucose Random 117 mg/dL (60-115); Potassium 4.9 mmol/L (3.3-5.1); Sodium 139 mmol/L (135-145)
[2021-08-18 10:46] LABS: Cholesterol 119 mg/dL; HDL Cholesterol 37 mg/dL; LDL Cholesterol Calculated 63 mg/dl; Triglycerides 96 mg/dL
[2021-08-18 11:06] LABS: Prostate Specific Antigen 1.19 ng/mL (<0.05-4.0)
[2021-08-18 12:37] LABS: Creatinine Urine 149.09 mg/dL
[2021-08-18 12:43] LABS: Microalbum/Creatinine Ratio Ur 70.4 ug/mg cr
[2021-08-26 16:51] LABS: Testosterone, Total 339 ng/dL (250-1100)
== END 2021-08-18 09:19 | disposition home or self-care (01) ==
LOC: HO.LAB 09:18
PROVIDERS: Absent Provider Urology; PCP Nurse Practitioner Primary Care; Visit Provider Nurse Practitioner Primary Care
DX: Z12.5 Encounter for screening for malignant neoplasm of prostate (principal); E11.22 Type 2 diabetes mellitus with diabetic chronic kidney disease; N18.9 Chronic kidney disease, unspecified; I87.2 Venous insufficiency (chronic) (peripheral); E29.1 Testicular hypofunction
CPT/HCPCS: 36415; 80048; 80061; 82043; 84153; 84403; 85027

== ENCOUNTER 2021-08-23 12:34 | Outpatient (REF) | payer MEDICARE, SELFPAY | END 2021-08-23 12:35 | disposition home or self-care (01) | LOC: HO.LAB 12:34 | PROVIDERS: PCP Nurse Practitioner Primary Care; Visit Provider Internal Medicine | DX: Z20.822 Contact with and (suspected) exposure to COVID-19 (principal) | CPT/HCPCS: C9803; U0003; U0005 ==

== ENCOUNTER → 2021-09-10 13:02 | Outpatient (BNVA) | payer MEDICARE, SELFPAY | PROVIDERS: PCP Nurse Practitioner Primary Care; Visit Provider Urology | DX: E11.69 Type 2 diabetes mellitus with other specified complication (principal); E29.1 Testicular hypofunction; N52.1 Erectile dysfunction due to diseases classified elsewhere | CPT/HCPCS: 99212 ==

== ENCOUNTER 2021-11-26 12:36 | Outpatient (REF) | payer MEDICARE, SELFPAY ==
--- NOTE | ~2021-11-26 | XR_ITS ---
EXAMINATION: XR KNEE, RIGHT CLINICAL INFORMATION: Pain COMPARISON: None TECHNIQUE: Four views of the right knee. FINDINGS: There is loss of medial and patellofemoral compartment joint space with minimal suprapatellar joint effusion. No loose bodies, bony erosive changes or spurring seen. There is mild genu varus deformity of the knee. No acute fracture or lytic process seen. The soft tissues are normal. XR/XR knee RT 3V IMPRESSION: Mild degenerative changes medial and patellofemoral compartment right knee.
== END 2021-11-26 12:37 | disposition home or self-care (01) ==
LOC: HO.XRAY 12:36
PROVIDERS: PCP Nurse Practitioner Primary Care; Visit Provider Nurse Practitioner Family
DX: M25.561 Pain in right knee (principal); M19.042 Primary osteoarthritis, left hand; M19.041 Primary osteoarthritis, right hand; G56.03 Carpal tunnel syndrome, bilateral upper limbs; Z60.2 Problems related to living alone
CPT/HCPCS: 73562; 99212

== ENCOUNTER 2021-12-06 13:56 | Outpatient (REF) | payer MEDICARE, SELFPAY ==
[2021-12-06 14:41] LABS: Hematocrit 38.2 % (42.0-52.0); Hemoglobin 12.7 g/dl (14.0-18.0); Mean Corpuscular HGB Conc 33.2 g/dl (31.0-36.0); Mean Corpuscular Hemoglobin 33.3 pg (27.0-33.0); Mean Corpuscular Volume 100.3 fL (80.0-98.0); Mean Platelet Volume 9.4 fL (9.4-12.4); Platelet Count 223 X10*3/uL (160-400); Red Blood Count 3.81 X10*6/uL (4.60-5.80); Red Cell Distribution Width 13.6 % (11.0-16.0)
[2021-12-06 15:26] LABS: Prostate Specific Antigen 1.41 ng/mL (<0.05-4.0)
[2021-12-10 16:11] LABS: Testosterone, Total 497 ng/dL (250-1100)
== END 2021-12-06 13:57 | disposition home or self-care (01) ==
LOC: HO.LAB 13:56
PROVIDERS: PCP Nurse Practitioner Primary Care; Visit Provider Urology
DX: Z12.5 Encounter for screening for malignant neoplasm of prostate (principal); E29.1 Testicular hypofunction
CPT/HCPCS: 36415; 84153; 84403; 85027

== ENCOUNTER → 2021-12-17 12:58 | Outpatient (BNVA) | payer MEDICARE, SELFPAY | PROVIDERS: PCP Nurse Practitioner Primary Care; Visit Provider Urology | DX: E29.1 Testicular hypofunction (principal); E11.69 Type 2 diabetes mellitus with other specified complication; N52.1 Erectile dysfunction due to diseases classified elsewhere | CPT/HCPCS: 99212 ==

== ENCOUNTER → 2021-12-27 13:10 | Outpatient (BNVA) | payer MEDICARE, SELFPAY | PROVIDERS: PCP Nurse Practitioner Primary Care; Visit Provider Physician Assistant | DX: M25.561 Pain in right knee (principal); M17.11 Unilateral primary osteoarthritis, right knee; M19.042 Primary osteoarthritis, left hand; M19.041 Primary osteoarthritis, right hand; I25.10 Atherosclerotic heart disease of native coronary artery without angina pectoris; I10 Essential (primary) hypertension; F17.210 Nicotine dependence, cigarettes, uncomplicated | CPT/HCPCS: 20610; 99202; J1040 ==

== ENCOUNTER 2021-12-28 11:29 | Emergency (ER) | payer MEDICARE, SELFPAY ==
--- NOTE | ~2021-12-28 | XR_ITS ---
EXAMINATION: XR CHEST CLINICAL INFORMATION: Bilateral lower extremity edema COMPARISON: Previous chest x-ray most recent April 2021 TECHNIQUE: 2 views of the chest were obtained. FINDINGS: The cardiac and mediastinal contours are stable. There is chronic scarring or subsegmental atelectasis at the right lung base. This is similar to previous exam. The lungs are otherwise clear. There is no pleural effusion or pneumothorax. There are degenerative changes of the spine. XR/XR chest 2V IMPRESSION: Chronic scarring or subsegmental atelectasis at the right lung base similar to previous exam. No evidence of CHF.
[2021-12-28 11:51] VITALS: BP 116/44; PULSE 72; RESP 19; TEMP 36.6; O2SAT 95; BMI 30.4
--- NOTE | 2021-12-28 11:56 | ECG_ITS ---
Test Reason : leg swelling Blood Pressure : / mmHG Vent. Rate : 071 BPM Atrial Rate : 071 BPM P-R Int : 192 ms QRS Dur : 062 ms QT Int : 362 ms P-R-T Axes : 046 007 030 degrees QTc Int : 393 ms Sinus rhythm with marked sinus arrhythmia Otherwise normal ECG When compared with ECG of 13-APR-2021 22:39, Premature atrial complexes are no longer Present Referred By: Generic ED Physician Electronically Signed By:Matthew Durham
[2021-12-28 12:17] LABS: Basophils Percent Auto 0.1 % (0-2); Eosinophils Percent Auto 0.1 % (0-4); Hematocrit 41.7 % (42.0-52.0); Hemoglobin 13.8 g/dl (14.0-18.0); Imm Gran Abs Auto 0.06 X10*3/uL (0.00-0.03); Imm Gran Pct Auto 0.5 % (0.0-0.4); Lymphocytes Absolute Auto 0.7 X10*3/uL (1.2-4.9); Lymphocytes Percent Auto 5.4 % (20-40); MANUAL DIFF FLAG SCAN; Mean Corpuscular HGB Conc 33.1 g/dl (31.0-36.0); Mean Corpuscular Hemoglobin 33.5 pg (27.0-33.0); Mean Corpuscular Volume 101.2 fL (80.0-98.0); Mean Platelet Volume 10.9 fL (9.4-12.4); Monocytes Absolute Auto 0.3 X10*3/uL (0.1-1.2); Monocytes Percent Auto 2.2 % (2-11); Neutrophils Absolute Auto 12.2 x10*3/uL (2.0-8.3); Neutrophils Percent Auto 91.7 % (45-73); PLT CLUMP 1; Red Blood Count 4.12 X10*6/uL (4.60-5.80); Red Cell Distribution Width 13.2 % (11.0-16.0); SCAN SMEAR FLAG 1
[2021-12-28 12:35] LABS: B Type Natriuretic Peptide 47 pg/mL (<100); Troponin-I High Sensitivity 11.1 ng/L (<3.5-35.0)
[2021-12-28 12:37] LABS: Platelet Count 161 X10*3/uL (160-400); SLIDE REVIEW VERIFIED; White Blood Count 13.3 X10*3/uL (4.8-10.8)
[2021-12-28 12:50] LABS: Anion Gap 15 (12-20); Blood Urea Nitrogen 27 mg/dL (9-16); Calcium 9.7 mg/dL (8.4-10.2); Carbon Dioxide 25 mmol/L (22-29); Chloride 101 mmol/L (96-108); Creatinine Clr Calc Pharmacy 48.6; Estimated Glomerular Filt Rate 49; Glucose Random 373 mg/dL (60-115); Potassium 5.2 mmol/L (3.3-5.1); Sodium 136 mmol/L (135-145)
== END 2021-12-28 16:28 | disposition left against medical advice (07) ==
PROVIDERS: Emergency Provider Emergency Medicine; PCP Nurse Practitioner Primary Care
DX: M79.89 Other specified soft tissue disorders (principal); M79.662 Pain in left lower leg; M79.661 Pain in right lower leg; I10 Essential (primary) hypertension; E11.9 Type 2 diabetes mellitus without complications
CPT/HCPCS: 36415; 71046; 80048; 83880; 84484; 85025; 93005; 99283

== ENCOUNTER 2022-01-21 12:51 | Outpatient (REF) | payer OTHER, SELFPAY ==
[2022-01-21 13:32] LABS: Hematocrit 39.7 % (42.0-52.0); Hemoglobin 13.5 g/dl (14.0-18.0); Mean Corpuscular Hemoglobin 33.8 pg (27.0-33.0); Mean Corpuscular Volume 99.3 fL (80.0-98.0); Mean Platelet Volume 9.9 fL (9.4-12.4); Platelet Count 240 X10*3/uL (160-400); Red Cell Distribution Width 12.8 % (11.0-16.0); White Blood Count 10.8 X10*3/uL (4.8-10.8)
[2022-01-21 14:09] LABS: Prostate Specific Antigen 0.83 ng/mL (<0.05-4.0)
[2022-01-29 13:26] LABS: Testosterone, Total 172 ng/dL (250-1100)
== END 2022-01-21 12:52 | disposition home or self-care (01) ==
LOC: HO.LAB 12:51
PROVIDERS: PCP Nurse Practitioner Primary Care; Visit Provider Urology
DX: E29.1 Testicular hypofunction (principal)
CPT/HCPCS: 36415; 84153; 84403; 85027

== ENCOUNTER → 2022-03-11 13:06 | Outpatient (BNVA) | payer OTHER, SELFPAY | PROVIDERS: PCP Nurse Practitioner Primary Care; Visit Provider Urology | DX: Z13.89 Encounter for screening for other disorder (principal) | CPT/HCPCS: Q3014 ==

== ENCOUNTER 2022-05-24 13:54 | Outpatient (REF) | payer OTHER, SELFPAY ==
--- NOTE | ~2022-05-24 | XR_ITS ---
EXAMINATION: XR BILATERAL HAND XR CERVICAL SPINE XR LUMBAR SPINE. CLINICAL INFORMATION: Bilateral hand pain, cervical and lumbar spine pain. COMPARISON: None TECHNIQUE: 3 views each hand. Cervical spine 3 views. Lumbar spine 3 views. FINDINGS: Left hand: There is mild loss of PIP and DIP joint space both digits without bony erosive changes. No visible acute fracture, dislocation or subluxation seen. Right hand: There is loss of PIP and DIP joints right hand without bony erosive changes. There are no loose bodies. No acute fracture or dislocation. An old ulnar styloid de process fracture is noted. Cervical spine: There is normal cervical lordosis. The vertebral heights, alignment and disc heights are normal. There is mild left C3-C4, C4-C5 and C5-C6 facet joint hypertrophy. The prevertebral soft tissues are normal. Lumbar spine: There is normal lumbar lordosis. There are bilateral pedicular screws at L4 and S1 vertebra with interconnecting rods. No aggressive lytic or sclerotic process seen. The paravertebral soft tissues are normal. XR/XR hand RT min 3V IMPRESSION: 1. Mild degenerative changes PIP and DIP joints both hands. No visible acute fracture or dislocation. An old styloid process fracture of right wrist is noted 2. Mild levoscoliosis cervical spine with moderate left facet joint arthropathy as described above. No visible acute fracture or dislocation seen. 3. Bilateral pedicle screws at L4 and S1 vertebra with interconnecting rods for posterior fusion.
--- NOTE | ~2022-05-24 | XR_ITS ---
EXAMINATION: XR BILATERAL HAND XR CERVICAL SPINE XR LUMBAR SPINE. CLINICAL INFORMATION: Bilateral hand pain, cervical and lumbar spine pain. COMPARISON: None TECHNIQUE: 3 views each hand. Cervical spine 3 views. Lumbar spine 3 views. FINDINGS: Left hand: There is mild loss of PIP and DIP joint space both digits without bony erosive changes. No visible acute fracture, dislocation or subluxation seen. Right hand: There is loss of PIP and DIP joints right hand without bony erosive changes. There are no loose bodies. No acute fracture or dislocation. An old ulnar styloid de process fracture is noted. Cervical spine: There is normal cervical lordosis. The vertebral heights, alignment and disc heights are normal. There is mild left C3-C4, C4-C5 and C5-C6 facet joint hypertrophy. The prevertebral soft tissues are normal. Lumbar spine: There is normal lumbar lordosis. There are bilateral pedicular screws at L4 and S1 vertebra with interconnecting rods. No aggressive lytic or sclerotic process seen. The paravertebral soft tissues are normal. XR/XR cervical spine 2V IMPRESSION: 1. Mild degenerative changes PIP and DIP joints both hands. No visible acute fracture or dislocation. An old styloid process fracture of right wrist is noted 2. Mild levoscoliosis cervical spine with moderate left facet joint arthropathy as described above. No visible acute fracture or dislocation seen. 3. Bilateral pedicle screws at L4 and S1 vertebra with interconnecting rods for posterior fusion.
--- NOTE | ~2022-05-24 | XR_ITS ---
EXAMINATION: XR BILATERAL HAND XR CERVICAL SPINE XR LUMBAR SPINE. CLINICAL INFORMATION: Bilateral hand pain, cervical and lumbar spine pain. COMPARISON: None TECHNIQUE: 3 views each hand. Cervical spine 3 views. Lumbar spine 3 views. FINDINGS: Left hand: There is mild loss of PIP and DIP joint space both digits without bony erosive changes. No visible acute fracture, dislocation or subluxation seen. Right hand: There is loss of PIP and DIP joints right hand without bony erosive changes. There are no loose bodies. No acute fracture or dislocation. An old ulnar styloid de process fracture is noted. Cervical spine: There is normal cervical lordosis. The vertebral heights, alignment and disc heights are normal. There is mild left C3-C4, C4-C5 and C5-C6 facet joint hypertrophy. The prevertebral soft tissues are normal. Lumbar spine: There is normal lumbar lordosis. There are bilateral pedicular screws at L4 and S1 vertebra with interconnecting rods. No aggressive lytic or sclerotic process seen. The paravertebral soft tissues are normal. XR/XR lumbar spine 2-3V IMPRESSION: 1. Mild degenerative changes PIP and DIP joints both hands. No visible acute fracture or dislocation. An old styloid process fracture of right wrist is noted 2. Mild levoscoliosis cervical spine with moderate left facet joint arthropathy as described above. No visible acute fracture or dislocation seen. 3. Bilateral pedicle screws at L4 and S1 vertebra with interconnecting rods for posterior fusion.
--- NOTE | ~2022-05-24 | XR_ITS ---
EXAMINATION: XR BILATERAL HAND XR CERVICAL SPINE XR LUMBAR SPINE. CLINICAL INFORMATION: Bilateral hand pain, cervical and lumbar spine pain. COMPARISON: None TECHNIQUE: 3 views each hand. Cervical spine 3 views. Lumbar spine 3 views. FINDINGS: Left hand: There is mild loss of PIP and DIP joint space both digits without bony erosive changes. No visible acute fracture, dislocation or subluxation seen. Right hand: There is loss of PIP and DIP joints right hand without bony erosive changes. There are no loose bodies. No acute fracture or dislocation. An old ulnar styloid de process fracture is noted. Cervical spine: There is normal cervical lordosis. The vertebral heights, alignment and disc heights are normal. There is mild left C3-C4, C4-C5 and C5-C6 facet joint hypertrophy. The prevertebral soft tissues are normal. Lumbar spine: There is normal lumbar lordosis. There are bilateral pedicular screws at L4 and S1 vertebra with interconnecting rods. No aggressive lytic or sclerotic process seen. The paravertebral soft tissues are normal. XR/XR hand LT min 3V IMPRESSION: 1. Mild degenerative changes PIP and DIP joints both hands. No visible acute fracture or dislocation. An old styloid process fracture of right wrist is noted 2. Mild levoscoliosis cervical spine with moderate left facet joint arthropathy as described above. No visible acute fracture or dislocation seen. 3. Bilateral pedicle screws at L4 and S1 vertebra with interconnecting rods for posterior fusion.
== END 2022-05-24 13:55 | disposition home or self-care (01) ==
LOC: HO.XRAY 13:54
PROVIDERS: PCP Nurse Practitioner Primary Care; Visit Provider Nurse Practitioner Family
DX: M19.041 Primary osteoarthritis, right hand (principal); M19.042 Primary osteoarthritis, left hand; M25.561 Pain in right knee; G56.01 Carpal tunnel syndrome, right upper limb; M54.50 Low back pain, unspecified; M54.2 Cervicalgia; E11.42 Type 2 diabetes mellitus with diabetic polyneuropathy; Z60.2 Problems related to living alone; Z79.899 Other long term (current) drug therapy; Z79.4 Long term (current) use of insulin
CPT/HCPCS: 72040; 72100; 73130; 99212

== ENCOUNTER 2022-06-21 12:04 | Outpatient (REF) | payer OTHER, SELFPAY ==
[2022-06-21 13:21] LABS: Hematocrit 40.6 % (42.0-52.0); Mean Corpuscular HGB Conc 34.5 g/dl (31.0-36.0); Mean Corpuscular Hemoglobin 33.7 pg (27.0-33.0); Mean Corpuscular Volume 97.8 fL (80.0-98.0); Mean Platelet Volume 9.8 fL (9.4-12.4); Platelet Count 241 X10*3/uL (160-400); Red Blood Count 4.15 X10*6/uL (4.60-5.80); Red Cell Distribution Width 13.1 % (11.0-16.0)
[2022-06-21 14:13] LABS: Prostate Specific Antigen 0.53 ng/mL (<0.05-4.0)
[2022-06-27 17:12] LABS: Testosterone, Total 296 ng/dL (250-1100)
== END 2022-06-21 12:05 | disposition home or self-care (01) ==
LOC: HO.LAB 12:04
PROVIDERS: PCP Nurse Practitioner Primary Care; Visit Provider Urology
DX: Z12.5 Encounter for screening for malignant neoplasm of prostate (principal); E29.1 Testicular hypofunction
CPT/HCPCS: 36415; 84153; 84403; 85027

== ENCOUNTER → 2022-06-24 13:00 | Outpatient (BNVA) | payer OTHER, SELFPAY | PROVIDERS: PCP Nurse Practitioner Primary Care; Visit Provider Urology | DX: E29.1 Testicular hypofunction (principal); E11.69 Type 2 diabetes mellitus with other specified complication; N52.1 Erectile dysfunction due to diseases classified elsewhere | CPT/HCPCS: 99212 ==

== ENCOUNTER 2022-07-07 08:58 | Outpatient (REF) | payer OTHER, SELFPAY ==
--- NOTE | ~2022-07-07 | XR_ITS ---
EXAMINATION: XR SHOULDER, RIGHT CLINICAL INFORMATION: Pain COMPARISON: None TECHNIQUE: 3 of the right shoulder. FINDINGS: Bone alignment is normal. No fracture or dislocation is seen. There is arthritis at the glenohumeral joint. There is a small soft tissue calcifications or ossifications. XR/XR shoulder RT min 2V IMPRESSION: Mild degenerative changes.
== END 2022-07-07 08:59 | disposition home or self-care (01) ==
LOC: HO.HOSX 08:58
PROVIDERS: Visit Provider Physician Assistant
DX: M54.12 Radiculopathy, cervical region (principal); M75.101 Unspecified rotator cuff tear or rupture of right shoulder, not specified as traumatic; E11.9 Type 2 diabetes mellitus without complications
CPT/HCPCS: 20610; 73030; 99212; J1020

== ENCOUNTER → 2022-07-15 13:10 | Outpatient (BNVA) | payer OTHER, SELFPAY | PROVIDERS: PCP Nurse Practitioner Primary Care; Visit Provider Nurse Practitioner Family | DX: M47.812 Spondylosis without myelopathy or radiculopathy, cervical region (principal); M54.12 Radiculopathy, cervical region; M62.838 Other muscle spasm; G56.03 Carpal tunnel syndrome, bilateral upper limbs; M19.042 Primary osteoarthritis, left hand; M19.041 Primary osteoarthritis, right hand; E11.42 Type 2 diabetes mellitus with diabetic polyneuropathy | CPT/HCPCS: 99202 ==

== ENCOUNTER → 2022-07-25 10:49 | Outpatient (BNVA) | payer OTHER, SELFPAY | PROVIDERS: PCP Nurse Practitioner Primary Care; Referring Provider Nurse Practitioner Primary Care; Visit Provider Nurse Practitioner Family | DX: Z01.818 Encounter for other preprocedural examination (principal); K59.04 Chronic idiopathic constipation | CPT/HCPCS: 99202 ==

== ENCOUNTER 2022-08-16 06:28 | Outpatient (REF) | payer OTHER, SELFPAY ==
--- NOTE | ~2022-08-16 | FL_ITS ---
EXAMINATION: XR FLUOROSCOPY WITH IMAGES CLINICAL INFORMATION: Cervical CLAIRE TECHNIQUE: Fluoroscopy Supervised By: Dr. Jose Rollins. Fluoroscopy Time: 0.8 minutes. Cumulative Dose: 8.70 mGy. DAP: 2.11 Gycm2. Images: 7. FL/FL guidance in treatment room FINDINGS/IMPRESSION: Images demonstrate bilateral transforaminal spinal needles at C3-C4, C4-C5 and C5-C6, with contrast along the nerve roots. Please see procedure report.
== END 2022-08-16 06:29 | disposition home or self-care (01) ==
LOC: CF 06:28
PROVIDERS: Visit Provider Anesthesiology
DX: M54.12 Radiculopathy, cervical region (principal); M47.812 Spondylosis without myelopathy or radiculopathy, cervical region; M75.101 Unspecified rotator cuff tear or rupture of right shoulder, not specified as traumatic
CPT/HCPCS: 64490; 64491; J3300

== ENCOUNTER → 2022-08-17 12:25 | Outpatient (BNVA) | payer OTHER, SELFPAY | PROVIDERS: PCP Nurse Practitioner Primary Care; Visit Provider Orthopaedic Surgery | DX: G56.01 Carpal tunnel syndrome, right upper limb (principal); R20.0 Anesthesia of skin; R20.2 Paresthesia of skin | CPT/HCPCS: 99202 ==

== ENCOUNTER → 2022-08-22 11:02 | Outpatient (BNVA) | payer OTHER, SELFPAY | PROVIDERS: PCP Nurse Practitioner Primary Care; Visit Provider Anesthesiology | DX: M47.812 Spondylosis without myelopathy or radiculopathy, cervical region (principal); M19.042 Primary osteoarthritis, left hand; M19.041 Primary osteoarthritis, right hand; M54.12 Radiculopathy, cervical region; E11.42 Type 2 diabetes mellitus with diabetic polyneuropathy; M62.838 Other muscle spasm; G56.03 Carpal tunnel syndrome, bilateral upper limbs | CPT/HCPCS: Q3014 ==

== ENCOUNTER 2022-08-29 09:18 | Day surgery (SDC) | payer OTHER, SELFPAY ==
--- NOTE | 2022-08-29 07:51 | W.PM.OPN ---
Operative Note Operative Note Date of Service: 08/29/22 Narrative: Preop diagnosis: 1. right Carpal tunnel syndrome Postop diagnosis: same Procedure: 1. right Carpal tunnel release Surgeon: Maine Clark MD Anesthesia: local block using 1% lidocaine with epinephrine Findings: Thickened transverse carpal ligament, particularly in the palm. EBL: Less than 5 mL Specimens: None Complications: None Disposition: Brought to recovery room in stable condition Plan: Follow-up for 10-14 days for wound check and suture removal Indications: The patient is 72 years old, with right carpal tunnel syndrome with dense numbness and thenar wasting. The risks and benefits of operative treatment including but not limited to risk of damage to blood vessels, nerves, tendons, infection, persistent pain, persistent symptoms, or possible need for additional surgery were discussed with the patient and the patient wishes to proceed with surgery. Procedure: Once consent was obtained a local block was performed using a combination of 1% lidocaine with epinephrine. The patient was then brought back to the operating suite and placed on the operative table in supine position. A tourniquet was applied to the proximal aspect of the right upper extremity and the limb was prepped and draped in a standard surgical fashion. Once assured that we had a good block, a 2.0 cm longitudinal incision was made centered over the carpal tunnel. The incision was made through the skin to the subcutaneous tissues using a #15 blade. Dissection was made down to the level of the transverse carpal ligament with care being taken to protect the palmar cutaneous nerve. Once the transverse carpal ligament was clearly visualized, a longitudinal incision was made in the transverse carpal ligament 1st using a #15 blade, then using tenotomy scissors under direct visualization. Care was taken to look for and protect the motor branch of the median nerve when seen in this area. Once satisfied with our carpal tunnel release the wound was copiously irrigated with normal saline and hemostasis was obtained with a brief period of local pressure. The skin edges were reapproximated with some 5.0 nylon suture material and a sterile dressing was applied. The patient appears to have tolerated the procedure well and with no complications. All digits were well vascularized at the conclusion of the case.
[2022-08-29 09:30] VITALS: BP 124/53; PULSE 75; RESP 16; TEMP 36.7; O2SAT 95; BMI 29.8
[2022-08-29 11:49] VITALS: BP 123/62; PULSE 69; RESP 16; O2SAT 96
== END 2022-08-29 11:51 | disposition home or self-care (01) ==
PROVIDERS: PCP Nurse Practitioner Primary Care; Visit Provider Orthopaedic Surgery
PROC: (CPT 64721; principal; 2022-08-29 10:30)
DX: G56.01 Carpal tunnel syndrome, right upper limb (principal); R20.0 Anesthesia of skin; R20.2 Paresthesia of skin; M62.541 Muscle wasting and atrophy, not elsewhere classified, right hand; I25.10 Atherosclerotic heart disease of native coronary artery without angina pectoris; I10 Essential (primary) hypertension; I25.2 Old myocardial infarction; E78.5 Hyperlipidemia, unspecified; E11.9 Type 2 diabetes mellitus without complications; F17.210 Nicotine dependence, cigarettes, uncomplicated
CPT/HCPCS: 64721; J0171

== ENCOUNTER → 2022-09-13 12:58 | Outpatient (BNVA) | payer OTHER, SELFPAY | PROVIDERS: PCP Nurse Practitioner Primary Care; Visit Provider Orthopaedic Surgery | DX: G56.01 Carpal tunnel syndrome, right upper limb (principal); R20.0 Anesthesia of skin; R20.2 Paresthesia of skin | CPT/HCPCS: 99212 ==

== ENCOUNTER 2022-09-14 09:58 | Outpatient (REF) | payer OTHER, SELFPAY ==
--- NOTE | 2022-09-14 10:01 | EMG_ITS ---
Please see scanned EMG / Nerve Conduction Report. MTDD
== END 2022-09-14 09:59 | disposition home or self-care (01) ==
LOC: HO.NEURO 09:58
PROVIDERS: PCP Nurse Practitioner Primary Care; Visit Provider Orthopaedic Surgery
DX: R20.0 Anesthesia of skin (principal); R20.2 Paresthesia of skin
CPT/HCPCS: 95885; 95910

== ENCOUNTER → 2022-09-20 11:33 | Outpatient (BNVA) | payer OTHER, SELFPAY | PROVIDERS: PCP Nurse Practitioner Primary Care; Visit Provider Nurse Practitioner Family | DX: Z01.818 Encounter for other preprocedural examination (principal); K59.04 Chronic idiopathic constipation | CPT/HCPCS: 99212 ==

== ENCOUNTER 2022-11-07 11:22 | Outpatient (REF) | payer OTHER, SELFPAY ==
--- NOTE | ~2022-11-07 | XR_ITS ---
EXAMINATION: XR FOOT, RIGHT CLINICAL INFORMATION: Right great toe pain. COMPARISON: None TECHNIQUE: AP, lateral, and oblique views of the right foot. FINDINGS: Bony alignment and mineralization are normal. No fracture, dislocation or right ankle joint effusion is seen. Boehler's angle is normal. There are minimal posterior and plantar calcaneal spurs. There is slight bunion formation of the first metatarsal head. No focal soft tissue swelling, gas or foreign body is seen. There are atherosclerotic calcifications. XR/XR foot RT 2V IMPRESSION: 1. No fracture, dislocation or right ankle joint effusion is seen. 2. There are minimal right calcaneal posterior and plantar spurs. 3. There is very mild bunion formation.
== END 2022-11-07 11:23 | disposition home or self-care (01) ==
LOC: HO.XRAY 11:22
PROVIDERS: PCP Nurse Practitioner Primary Care; Visit Provider Emergency Medicine
DX: M79.674 Pain in right toe(s) (principal)
CPT/HCPCS: 73620

== ENCOUNTER → 2022-11-24 11:08 | Outpatient (BNVA) | payer OTHER, SELFPAY | PROVIDERS: PCP Nurse Practitioner Primary Care; Visit Provider Nurse Practitioner Family | DX: M47.812 Spondylosis without myelopathy or radiculopathy, cervical region (principal); G56.03 Carpal tunnel syndrome, bilateral upper limbs; Z98.890 Other specified postprocedural states | CPT/HCPCS: 99212 ==

== ENCOUNTER 2022-12-08 14:08 | Outpatient (REF) | payer OTHER, SELFPAY ==
[2022-12-08 15:38] LABS: Hematocrit 45.1 % (42.0-52.0)
[2022-12-08 15:52] LABS: Amphetamine Screen Urine Not Detected (Not Detect); Barbiturates, Urine Not Detected (Not Detect); Benzodiazepines Screen Urine Not Detected (Not Detect); Cannabinoid Screen Urine Not Detected (Not Detect); Cocaine Screen Urine Not Detected (Not Detect); Fentanyl, urine Not Detected (Not Detect); Opiate Screen Urine Not Detected (Not Detect); Phencyclidine Screen Urine Not Detected (Not Detect)
[2022-12-08 16:10] LABS: Alanine Aminotransferase 13 U/L (0-40); Alkaline Phosphatase 121 U/L (39-117); Anion Gap 15 (12-20); Aspartate Amino Transferase 14 U/L (5-37); Bilirubin Total 0.9 mg/dL (0.0-1.0); Blood Urea Nitrogen 26 mg/dL (9-16); Calcium 9.5 mg/dL (8.4-10.2); Carbon Dioxide 29 mmol/L (22-29); Chloride 99 mmol/L (96-108); Estimated Glomerular Filt Rate 42; Glucose Random 171 mg/dL (60-115); Potassium 4.7 mmol/L (3.3-5.1); Sodium 138 mmol/L (135-145); Total Protein 6.7 g/dL (6.5-8.0)
[2022-12-14 17:48] LABS: Testosterone, Total 179 ng/dL (250-1100)
[2022-12-15 22:18] LABS: Estradiol Ultra Sensitive 14 pg/mL (< OR = 29)
[2022-12-19 08:20] LABS: Desmethyltramadol, Ur NEGATIVE
== END 2022-12-08 14:09 | disposition home or self-care (01) ==
LOC: HO.LAB 14:08
PROVIDERS: Absent Provider Urology; PCP Nurse Practitioner Primary Care; Visit Provider Nurse Practitioner Family
DX: E29.1 Testicular hypofunction (principal); M47.812 Spondylosis without myelopathy or radiculopathy, cervical region; Z12.5 Encounter for screening for malignant neoplasm of prostate; Z51.81 Encounter for therapeutic drug level monitoring; Z79.899 Other long term (current) drug therapy
CPT/HCPCS: 36415; 80053; 80307; 80373; 82670; 84153; 84403; 85014

== ENCOUNTER → 2022-12-23 13:00 | Outpatient (BNVA) | payer OTHER, SELFPAY | PROVIDERS: PCP Nurse Practitioner Primary Care; Visit Provider Urology | DX: E27.1 Primary adrenocortical insufficiency (principal); N52.1 Erectile dysfunction due to diseases classified elsewhere; E11.42 Type 2 diabetes mellitus with diabetic polyneuropathy; I10 Essential (primary) hypertension; Z79.82 Long term (current) use of aspirin; Z79.899 Other long term (current) drug therapy | CPT/HCPCS: 99212 ==

== ENCOUNTER → 2022-12-27 12:49 | Outpatient (BNVA) | payer OTHER, SELFPAY | PROVIDERS: PCP Nurse Practitioner Primary Care; Visit Provider Orthopaedic Surgery ==

== ENCOUNTER → 2023-01-04 12:48 | Outpatient (BNVA) | payer OTHER, SELFPAY | PROVIDERS: PCP Nurse Practitioner Primary Care; Visit Provider Orthopaedic Surgery ==

== ENCOUNTER → 2023-01-25 12:29 | Outpatient (BNVA) | payer OTHER, SELFPAY | PROVIDERS: PCP Nurse Practitioner Primary Care; Visit Provider Orthopaedic Surgery | DX: G56.01 Carpal tunnel syndrome, right upper limb (principal); G56.21 Lesion of ulnar nerve, right upper limb; R20.0 Anesthesia of skin; R20.2 Paresthesia of skin | CPT/HCPCS: 99212 ==

== ENCOUNTER 2023-03-15 09:12 | Outpatient (REF) | payer OTHER, SELFPAY ==
--- NOTE | 2023-03-15 09:15 | EMG_ITS ---
Please see scanned EMG / Nerve Conduction Report. MTDD
== END 2023-03-15 09:13 | disposition home or self-care (01) ==
LOC: HO.NEURO 09:12
PROVIDERS: PCP Nurse Practitioner Primary Care; Visit Provider Orthopaedic Surgery
DX: R20.2 Paresthesia of skin (principal); R20.0 Anesthesia of skin
CPT/HCPCS: 95885; 95911; 95913

== ENCOUNTER 2023-03-28 09:08 | Outpatient (REF) | payer OTHER, SELFPAY ==
[2023-03-28 10:25] LABS: Hematocrit 43.9 % (42.0-52.0)
[2023-03-28 11:18] LABS: Prostate Specific Antigen 0.65 ng/mL (<0.05-4.0)
[2023-04-02 12:29] LABS: Testosterone, Total 240 ng/dL (250-1100)
== END 2023-03-28 09:09 | disposition home or self-care (01) ==
LOC: HO.LAB 09:08
PROVIDERS: PCP Nurse Practitioner Primary Care; Visit Provider Urology
DX: Z12.5 Encounter for screening for malignant neoplasm of prostate (principal); E29.1 Testicular hypofunction
CPT/HCPCS: 36415; 84153; 84403; 85014

== ENCOUNTER 2023-04-02 22:26 | Emergency (ER) | payer OTHER, SELFPAY ==
--- NOTE | ~2023-04-02 | XR_ITS ---
EXAMINATION: XR CERVICAL SPINE CLINICAL INFORMATION: Pain radiating down to the back of the toes COMPARISON: Cervical spine 05/24/2022 TECHNIQUE: 5 views of the cervical spine vertebral body heights are well-maintained. FINDINGS: There is some minimal disc space narrowing present at C4-C5 and C5-C6. C7 is suboptimally seen. No prevertebral soft tissue swelling or subluxations noted. Calcification present at the carotid bifurcations no bony destructive lesions. XR/XR cervical spine 3V IMPRESSION: Mild disc space narrowing at C4-C5 and C5-C6.
--- NOTE | ~2023-04-02 | CT_ITS ---
EXAMINATION: CT CERVICAL SPINE WITHOUT CONTRAST CLINICAL INFORMATION: Neck pain. COMPARISON: None available. TECHNIQUE: 3 mm thin axial and reformatted 2 mm thin sagittal and coronal images of cervical spine were obtained. This CT examination was performed using dose optimization techniques as appropriate, variously including the following: *Automated exposure control *Adjustment of mA and/or kV according to patient size (this includes techniques or standardized protocols for targeted exams where dose is matched to indication/reason for exam; i.e. extremities or head) *Use of iterative reconstruction technique DLP: 334 mGy-cm FINDINGS: There is mild straightening of cervical lordosis. The vertebral heights, alignment and disc heights are normal. There is mild ventral spondylosis C4-C5 and C5-C6 disc levels. No visible acute fracture or dislocation seen. There is bilateral mild facet joint arthropathy C3-C4, C4-C5 and C5-C6 disc levels. The prevertebral and paravertebral soft tissues are normal. CT/CT cervical spine wo IV con IMPRESSION: Mild ventral spondylosis C4-C5 and C5-C6 disc levels. No visible acute fracture, dislocation or subluxation seen. Fleischner guidelines were followed.
[2023-04-02 22:32] VITALS: BP 130/77; BP 132/70; PULSE 55; PULSE 60; RESP 20; TEMP 36.8; O2SAT 96; BMI 28.5
[2023-04-03 04:06] VITALS: BP 133/78; PULSE 80; RESP 16; TEMP 36.9; O2SAT 99
[2023-04-03 05:58] LABS: MANUAL DIFF FLAG NO
[2023-04-03 05:59] LABS: Basophils Absolute Auto 0.1 X10*3/uL (0.0-0.2); Basophils Percent Auto 0.7 % (0-2); Eosinophils Absolute Auto 0.1 X10*3/uL (0.0-0.4); Hematocrit 43.7 % (42.0-52.0); Hemoglobin 15.2 g/dl (14.0-18.0); Imm Gran Abs Auto 0.05 X10*3/uL (0.00-0.03); Imm Gran Pct Auto 0.4 % (0.0-0.4); Lymphocytes Absolute Auto 3.3 X10*3/uL (1.2-4.9); Lymphocytes Percent Auto 27.3 % (20-40); Mean Corpuscular HGB Conc 34.8 g/dl (31.0-36.0); Mean Corpuscular Hemoglobin 33.6 pg (27.0-33.0); Mean Corpuscular Volume 96.7 fL (80.0-98.0); Mean Platelet Volume 9.6 fL (9.4-12.4); Monocytes Percent Auto 7.8 % (2-11); Neutrophils Absolute Auto 7.7 x10*3/uL (2.0-8.3); Neutrophils Percent Auto 62.8 % (45-73); Platelet Count 217 X10*3/uL (160-400); Red Blood Count 4.52 X10*6/uL (4.60-5.80); White Blood Count 12.2 X10*3/uL (4.8-10.8)
[2023-04-03 06:10] LABS: Anion Gap 15 (12-20); Blood Urea Nitrogen 27 mg/dL (9-16); Calcium 10.2 mg/dL (8.4-10.2); Carbon Dioxide 26 mmol/L (22-29); Chloride 104 mmol/L (96-108); Creatinine Clr Calc Pharmacy 51.9; Estimated Glomerular Filt Rate 56; Glucose Random 108 mg/dL (60-115); Potassium 4.7 mmol/L (3.3-5.1); Sodium 140 mmol/L (135-145)
--- NOTE | 2023-04-03 06:44 | ED_ITS ---
HPI - Back Pain/Injury General Chief Complaint: Back Pain/Injury Stated Complaint: back pain Time Seen by Provider: 04/03/23 03:43 History of Present Illness HPI Narrative: Patient is a 73-year-old male presents today with having neck pain. the pain goes down to his legs. It has been ongoing for months. Patient baseline does not walk well. Requires a scooter. He denies any bowel or urinary incontinence. No fever no chills. No headache. No new focal weakness. No diaphoresis. No chest pain. Patient is from home. No fever no chills. No history of IV drug use. No history of trauma. Feels the pain is not getting any better. Presents to the ED for further evaluation. Patient has a history of diabetes. Related Data Home Medications Medication Instructions Recorded Confirmed acetaminophen 500 mg tablet 500 mg PO Q6H PRN 08/12/20 06/24/22 (Tylenol Extra Strength) aspirin 81 mg tablet,delayed 81 mg PO DAILY 08/12/20 06/24/22 release (Adult Low Dose Aspirin) cholecalciferol (vitamin D3) 50 50 mcg PO DAILY 08/12/20 06/24/22 mcg (2,000 unit) capsule cilostazol 100 mg tablet 100 mg PO BID 08/12/20 06/24/22 citalopram 20 mg tablet 20 mg PO DAILY 08/12/20 06/24/22 ferrous sulfate 325 mg (65 mg 325 mg PO BID 08/12/20 06/24/22 iron) tablet hydrochlorothiazide 12.5 mg tablet 12.5 mg PO DAILY 08/12/20 06/24/22 insulin aspart U-100 100 unit/mL 5 unit subcut DIRECTED 08/12/20 06/24/22 (3 mL) subcutaneous pen (Novolog FlexPen U-100 Insulin aspart) insulin glargine 100 unit/mL 10 unit subcut DIRECTED 08/12/20 06/24/22 subcutaneous solution (Lantus U-100 Insulin) loratadine 10 mg tablet (Allergy 10 mg PO DAILY 08/12/20 06/24/22 Relief (loratadine)) tamsulosin 0.4 mg capsule 0.4 mg PO DAILY 08/12/20 06/24/22 trazodone 100 mg tablet 200 mg PO BEDTIME PRN 08/12/20 06/24/22 amlodipine 5 mg tablet 5 mg PO QAM 11/19/20 06/24/22 calcitriol 0.5 mcg capsule 0 mcg PO 11/19/20 06/24/22 gabapentin 600 mg tablet 600 mg PO BEDTIME 11/19/20 06/24/22 insulin glargine 100 unit/mL (3 8 unit subcut QAM 11/19/20 06/24/22 mL) subcutaneous pen pramipexole 1 mg tablet 1 mg PO BEDTIME 11/19/20 06/24/22 pravastatin 40 mg tablet 40 mg PO BEDTIME 11/19/20 06/24/22 alcohol swabs 0 pad topical 03/09/21 06/24/22 blood sugar diagnostic #10 ea 03/09/21 06/24/22 enalapril maleate 20 mg tablet 20 mg PO 03/09/21 06/24/22 ergocalciferol (vitamin D2) 1,250 1,250 mcg PO QWEEK 03/09/21 06/24/22 mcg (50,000 unit) capsule hydrocortisone 2.5 % topical cream topical BID 03/09/21 06/24/22 with perineal applicator lancets 33 gauge #100 ea 03/09/21 06/24/22 lanolin alcohols-mineral appl topical 03/09/21 06/24/22 oil-w.petrolatum-ceresin topical cream lanolin-mineral oil lotion topical 03/09/21 06/24/22 pen needle, diabetic 31 gauge x #50 ea 03/09/21 06/24/2212/22 emtricitabine 200 mg-tenofovir 1 tab PO DAILY 12/17/21 06/24/22 alafenamide fumarate 25 mg tablet (Descovy) lidocaine 5 % topical ointment topical 12/17/21 06/24/22 pen needle, diabetic 31 gauge x #1,200 ea 12/17/21 06/24/2202/21 (UltiCare Pen Needle) furosemide 20 mg tablet 40 mg PO DAILY 05/24/22 06/24/22 losartan 50 mg tablet 100 mg PO DAILY 05/24/22 06/24/22 baclofen 10 mg tablet 10 mg PO TID PRN muscle spasm 07/07/22 clonazepam 0.5 mg tablet 0.5 mg PO DAILY PRN 12/23/22 empagliflozin 10 mg tablet 10 mg PO DAILY 12/23/22 (Jardiance) Previous Rx's Medication Instructions Recorded arm brace (Wrist Brace Large) #2 ea 08/12/20 benzonatate 200 mg capsule 200 mg PO TID PRN cough 4 days #12 04/14/21 caps tadalafil 20 mg tablet 20 mg PO .PRN sexual activity 30 12/17/21 days #30 tabs polyethylene glycol 3350 17 238 g PO ONCE #238 grams 07/25/22 gram/dose oral powder (Miralax) bisacodyl 5 mg tablet,delayed 10 mg PO ONCE 1 day #2 tabs 09/20/22 release (Dulcolax (bisacodyl)) docusate sodium 100 mg capsule 100 mg PO BEDTIME #90 caps 09/20/22 (Colace) sennosides 8.6 mg tablet 8.6 mg PO BEDTIME constipation #90 09/20/22 tabs testosterone (AndroGel) 3 pump transdermal DAILY 28 days 12/27/22 #150 grams tramadol 50 mg tablet 50 mg PO TID #90 tabs 01/12/23 cyclobenzaprine 10 mg tablet 10 mg PO TID PRN pain #14 tabs 04/03/23 oxycodone 5 mg tablet 5 mg PO Q8H PRN pain #7 tabs 04/03/23 Allergies Allergy/AdvReac Type Severity Reaction Status Date / Time No Known Allergies Allergy Verified 01/25/23 13:18 [No Known Allergies*] Review of Systems Review of Systems: positive neck pain no bowel urinary incontinence no focal weakness Yes all other systems are reviewed and are negative PMFSH Past Medical History Attestation statement: The following information was validated with the patient. Medical History Atherosclerotic cardiovascular disease Depression Encounter for medication monitoring Essential hypertension History of cardiac arrest (~09/2018) History of non-ST elevation myocardial infarction (NSTEMI) (~09/2018) Other and unspecified hyperlipidemia Peripheral neuropathy Personal history of nicotine dependence Primary osteoarthritis, left hand Primary osteoarthritis, right hand Restless leg syndrome Type 2 diabetes mellitus with unspecified complications Surgical History History of cardiac catheterization (~10/2018) History of cataract surgery (~2017) History of epidermal inclusion cyst excision (~07/2021) History of hand surgery (~03/2015) Family History Family History Mother No problems noted. Mother No problems noted. 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 Oriented X3. No acute distress. Eyes: Pupils equal, round and reactive to light. ENT: Pharynx normal. Neck: Trachea is midline. There is no posterior C-spine tenderness elicited on palpation. There is no crepitus on palpation. CVS: Normal heart rate and rhythm. Pulses normal. Normal S1 and S2 Respiratory: No respiratory distress. Breath sounds normal. No Wheezing. No rales . There is no clavicular tenderness Abdomen: Soft and nontender. No rigidity. No distention. good BS x4 Skin: Skin warm and dry. Normal skin color. Normal skin turgor. Extremities: sensation in the lower extremity intact. Reflexes equal at patellar 2+. Skin intact. Patient ambulates with a slightly shuffled gait. Able lift up leg against gravity. Neuro: Oriented X 3. No motor deficit. No sensory deficit. Moving all extermities. No slurred speech Medical Decision Making Lab Data 04/03/23 05:53 04/03/23 05:53 Labs: Lab Results 04/03/23 04/03/23 Range/Units 05:53 05:53 WBC 12.2 H (4.8-10.8) X10*3/uL RBC 4.52 L (4.60-5.80) X10*6/uL Hgb 15.2 (14.0-18.0) g/dl Hct 43.7 (42.0-52.0) % MCV 96.7 (80.0-98.0) fL MCH 33.6 H (27.0-33.0) pg MCHC 34.8 (31.0-36.0) g/dl RDW 13.0 (11.0-16.0) % Plt Count 217 (160-400) X10*3/uL MPV 9.6 (9.4-12.4) fL Immature Gran % (Auto) 0.4 (0.0-0.4) % Neut % (Auto) 62.8 (45-73) % Lymph % (Auto) 27.3 (20-40) % [place] % (Auto) 7.8 (2-11) % Eos % (Auto) 1.0 (0-4) % Baso % (Auto) 0.7 (0-2) % Lymph # (Auto) 3.3 (1.2-4.9) X10*3/uL [place] # (Auto) 1.0 (0.1-1.2) X10*3/uL Eos # (Auto) 0.1 (0.0-0.4) X10*3/uL Baso # (Auto) 0.1 (0.0-0.2) X10*3/uL Abs Immat Gran (auto) 0.05 H (0.00-0.03) X10*3/uL Absolute Neuts (auto) 7.7 (2.0-8.3) x10*3/uL Absolute Nucleated RBC 0.000 (0.0-0.012) X10*3/uL Nucleated RBC % (auto) 0.0 (0.0-0.2) /100WBC Sodium 140 (135-145) mmol/L Potassium 4.7 (3.3-5.1) mmol/L Chloride 104 (96-108) mmol/L Carbon Dioxide 26 (22-29) mmol/L Anion Gap 15 (12-20) BUN 27 H (9-16) mg/dL Creatinine 1.26 (0.5-1.4) mg/dL Estim Creat Clear Calc 51.9 Estimated GFR 56 Random Glucose 108 (60-115) mg/dL Calcium 10.2 D (8.4-10.2) mg/dL Discharge Plan Discharge Clinical Impression: Neck pain, Cervical radiculopathy Patient Disposition: Home, Self-Care Instructions: Chronic Neck Pain (DC) Prescriptions: New cyclobenzaprine 10 mg tablet 10 mg PO TID PRN (Reason: pain) Qty: 14 0RF oxycodone 5 mg tablet 5 mg PO Q8H PRN (Reason: pain) Qty: 7 0RF Rx Instructions: Partial Fill upon patient request. No Action testosterone [AndroGel] 20.25 mg/1.25 gram (1.62 %) gel in metered-dose pump 3 pump transdermal DAILY 28 Days Qty: 150 5RF Rx Instructions: apply 3 pump amount over max area on arm daily tramadol 50 mg tablet 50 mg PO TID Qty: 90 2RF benzonatate 200 mg capsule 200 mg PO TID PRN (Reason: cough) 4 Days Qty: 12 0RF amlodipine 5 mg tablet 5 mg PO QAM pravastatin 40 mg tablet 40 mg PO BEDTIME pramipexole 1 mg tablet 1 mg PO BEDTIME calcitriol 0.5 mcg capsule 0 mcg PO gabapentin 600 mg tablet 600 mg PO BEDTIME Lantus Solostar U-100 Insulin 100 unit/mL (3 mL) insulin pen 8 unit subcut QAM losartan 50 mg tablet 100 mg PO DAILY aspirin [Adult Low Dose Aspirin] 81 mg tablet,delayed release (DR/EC) 81 mg PO DAILY acetaminophen [Tylenol Extra Strength] 500 mg tablet 500 mg PO Q6H PRN cilostazol 100 mg tablet 100 mg PO BID ferrous sulfate 325 mg (65 mg iron) tablet 325 mg PO BID loratadine [Allergy Relief (loratadine)] 10 mg tablet 10 mg PO DAILY Lantus U-100 Insulin 100 unit/mL solution 10 unit subcut DIRECTED insulin aspart U-100 [Novolog FlexPen U-100 Insulin] 100 unit/mL (3 mL) insulin pen 5 unit subcut DIRECTED tamsulosin 0.4 mg capsule 0.4 mg PO DAILY cholecalciferol (vitamin D3) 50 mcg (2,000 unit) capsule 50 mcg PO DAILY trazodone 100 mg tablet 200 mg PO BEDTIME PRN citalopram 20 mg tablet 20 mg PO DAILY hydrochlorothiazide 12.5 mg tablet 12.5 mg PO DAILY (DME) Wrist Brace Large Misc See Rx Instructions .ROUTE .MEDSUPPLY Qty: 2 0RF Rx Instructions: As directed ergocalciferol (vitamin D2) 1,250 mcg (50,000 unit) capsule 1,250 mcg PO QWEEK (DME) FreeStyle Lite Strips Strip See Rx Instructions Not Applicable BID Qty: 10 Rx Instructions: As directed Minerin Creme Cream topical hydrocortisone 2.5 % cream with perineal applicator topical BID (DME) lancets 33 gauge misc See Rx Instructions Not Applicable BID Qty: 100 Rx Instructions: As directed (DME) pen needle, diabetic 31 gauge x 3/16 needle See Rx Instructions .ROUTE BID Qty: 50 Rx Instructions: As directed alcohol swabs Pads, Medicated 0 pad topical Thera-Derm Lotion topical enalapril maleate 20 mg tablet 20 mg PO baclofen 10 mg tablet 10 mg PO TID PRN (Reason: muscle spasm) bisacodyl [Dulcolax (bisacodyl)] 5 mg tablet,delayed release (DR/EC) 10 mg PO ONCE 1 Days Qty: 2 0RF Rx Instructions: take 2 tabs at noon the day before your colonoscopy docusate sodium [Colace] 100 mg capsule 100 mg PO BEDTIME Qty: 90 2RF sennosides 8.6 mg tablet 8.6 mg PO BEDTIME Qty: 90 2RF (DME) pen needle, diabetic [UltiCare Pen Needle] 31 gauge x 5/16 needle See Rx Instructions subcut .MEDSUPPLY Qty: 1200 Rx Instructions: As directed Descovy 200-25 mg tablet 1 tab PO DAILY lidocaine 5 % ointment topical tadalafil 20 mg tablet 20 mg PO .PRN 30 Days Qty: 30 0RF Rx Instructions: Take 60 minutes prior to continued activity furosemide 20 mg tablet 40 mg PO DAILY polyethylene glycol 3350 [Miralax] 17 gram/dose powder 238 g PO ONCE Qty: 238 0RF Rx Instructions: As directed by gastroenterology department at [facility] Jardiance 10 mg tablet 10 mg PO DAILY clonazepam 0.5 mg tablet 0.5 mg PO DAILY PRN Referrals: Kristi Warren, [facility] [Primary Care Provider] - 04/05/23
== END 2023-04-03 07:23 | disposition home or self-care (01) ==
PROVIDERS: Emergency Provider Emergency Medicine Emergency Medical Services; PCP Nurse Practitioner Primary Care
DX: M54.2 Cervicalgia (principal); M54.12 Radiculopathy, cervical region; E11.9 Type 2 diabetes mellitus without complications; F17.210 Nicotine dependence, cigarettes, uncomplicated; Z79.4 Long term (current) use of insulin; Z79.02 Long term (current) use of antithrombotics/antiplatelets; Z79.899 Other long term (current) drug therapy
CPT/HCPCS: 36415; 72040; 72125; 80048; 85025; 99284

== ENCOUNTER 2023-04-03 17:19 | Emergency (ER) | payer OTHER, SELFPAY ==
--- NOTE | ~2023-04-03 | XR_ITS ---
EXAMINATION: XR CHEST CLINICAL INFORMATION: SOB COMPARISON: Chest x-ray 12/28/2021 TECHNIQUE: Frontal view of the chest was obtained. FINDINGS: The lungs are well-expanded with right basilar platelike atelectasis. Rest of lungs are clear. The heart size and pulmonary vascularity is normal. No gross bony abnormality seen. XR/XR chest 1V IMPRESSION: Right basilar platelike atelectasis. No change from 12/28/2021
--- NOTE | ~2023-04-03 | CT_ITS ---
EXAMINATION: CT HEAD WITHOUT CONTRAST CLINICAL INFORMATION: Headache. Confusion. COMPARISON: None. TECHNIQUE: Contiguous axial imaging was performed from the skull base to vertex without intravenous administration of contrast. Coronal and sagittal reformatted images are performed at the CT scanner. [This CT examination was performed using dose optimization techniques as appropriate, variously including the following: *Automated exposure control *Adjustment of mA and/or kV according to patient size (this includes techniques or standardized protocols for targeted exams where dose is matched to indication/reason for exam; i.e. extremities or head) *Use of iterative reconstruction technique] DLP: 694 mGy-cm. FINDINGS: There is no evidence of acute intracranial hemorrhage or territorial infarction. No abnormal mass-effect or midline shift is seen. [place] to white matter differentiation is well preserved. No extra-axial fluid collections are identified. There is generalized global volume loss. There is moderate prominence of the ventricles and the sulci . There is mild hypodensity of the periventricular white matter due to chronic small vessel ischemic disease. There are vascular calcifications of the internal carotid arteries bilaterally. There is no osseous abnormality. The mastoid air cells and visualized portions of the paranasal sinuses are well-aerated. CT/CT head/brain wo IV con IMPRESSION: No acute intracranial pathology.
[2023-04-03 17:31] VITALS: BP 144/72; PULSE 70; TEMP 36.3; O2SAT 99; BMI 29.0
--- NOTE | 2023-04-03 17:31 | ED_ITS ---
HPI - Neck Pain/Injury General Chief Complaint: Neck Pain/Injury Stated Complaint: pain in back of head Time Seen by Provider: 04/03/23 17:46 Source: patient Mode of arrival: ambulatory Limitations: no limitations History of Present Illness HPI Narrative: 73-year-old male presents for the 2nd time in 24 hours with neck pain. Patient reports 10 in 10 pain. Starts in the neck. Reported earlier that radiates down to his legs. This has been going on for 1-2 months. Patient denies any bowel or bladder, and control issues. He has had no fevers or chills. He does report some intermittent headaches. Denies any focal neurologic deficits. He has some gait instability at baseline. Patient did take a pain medication earlier today. Took a shower and rested. However, his pain became increasingly more severe. Patient is able to move his neck however disc quite painful when he does so patient denies any nausea vomiting. Denies any numbness or tingling. He denies any focal weakness. Related Data Home Medications Medication Instructions Recorded Confirmed acetaminophen 500 mg tablet 500 mg PO Q6H PRN 08/12/20 06/24/22 (Tylenol Extra Strength) aspirin 81 mg tablet,delayed 81 mg PO DAILY 08/12/20 06/24/22 release (Adult Low Dose Aspirin) cholecalciferol (vitamin D3) 50 50 mcg PO DAILY 08/12/20 06/24/22 mcg (2,000 unit) capsule cilostazol 100 mg tablet 100 mg PO BID 08/12/20 06/24/22 citalopram 20 mg tablet 20 mg PO DAILY 08/12/20 06/24/22 ferrous sulfate 325 mg (65 mg 325 mg PO BID 08/12/20 06/24/22 iron) tablet hydrochlorothiazide 12.5 mg tablet 12.5 mg PO DAILY 08/12/20 06/24/22 insulin aspart U-100 100 unit/mL 5 unit subcut DIRECTED 08/12/20 06/24/22 (3 mL) subcutaneous pen (Novolog FlexPen U-100 Insulin aspart) insulin glargine 100 unit/mL 10 unit subcut DIRECTED 08/12/20 06/24/22 subcutaneous solution (Lantus U-100 Insulin) loratadine 10 mg tablet (Allergy 10 mg PO DAILY 08/12/20 06/24/22 Relief (loratadine)) tamsulosin 0.4 mg capsule 0.4 mg PO DAILY 08/12/20 06/24/22 trazodone 100 mg tablet 200 mg PO BEDTIME PRN 08/12/20 06/24/22 amlodipine 5 mg tablet 5 mg PO QAM 11/19/20 06/24/22 calcitriol 0.5 mcg capsule 0 mcg PO 11/19/20 06/24/22 gabapentin 600 mg tablet 600 mg PO BEDTIME 11/19/20 06/24/22 insulin glargine 100 unit/mL (3 8 unit subcut QAM 11/19/20 06/24/22 mL) subcutaneous pen pramipexole 1 mg tablet 1 mg PO BEDTIME 11/19/20 06/24/22 pravastatin 40 mg tablet 40 mg PO BEDTIME 11/19/20 06/24/22 alcohol swabs 0 pad topical 03/09/21 06/24/22 blood sugar diagnostic #10 ea 03/09/21 06/24/22 enalapril maleate 20 mg tablet 20 mg PO 03/09/21 06/24/22 ergocalciferol (vitamin D2) 1,250 1,250 mcg PO QWEEK 03/09/21 06/24/22 mcg (50,000 unit) capsule hydrocortisone 2.5 % topical cream topical BID 03/09/21 06/24/22 with perineal applicator lancets 33 gauge #100 ea 03/09/21 06/24/22 lanolin alcohols-mineral appl topical 03/09/21 06/24/22 oil-w.petrolatum-ceresin topical cream lanolin-mineral oil lotion topical 03/09/21 06/24/22 pen needle, diabetic 31 gauge x #50 ea 03/09/21 06/24/2212/22 emtricitabine 200 mg-tenofovir 1 tab PO DAILY 12/17/21 06/24/22 alafenamide fumarate 25 mg tablet (Descovy) lidocaine 5 % topical ointment topical 12/17/21 06/24/22 pen needle, diabetic 31 gauge x #1,200 ea 12/17/21 06/24/2202/21 (UltiCare Pen Needle) furosemide 20 mg tablet 40 mg PO DAILY 05/24/22 06/24/22 losartan 50 mg tablet 100 mg PO DAILY 05/24/22 06/24/22 baclofen 10 mg tablet 10 mg PO TID PRN muscle spasm 07/07/22 clonazepam 0.5 mg tablet 0.5 mg PO DAILY PRN 12/23/22 empagliflozin 10 mg tablet 10 mg PO DAILY 12/23/22 (Jardiance) Previous Rx's Medication Instructions Recorded arm brace (Wrist Brace Large) #2 ea 08/12/20 benzonatate 200 mg capsule 200 mg PO TID PRN cough 4 days #12 04/14/21 caps tadalafil 20 mg tablet 20 mg PO .PRN sexual activity 30 12/17/21 days #30 tabs polyethylene glycol 3350 17 238 g PO ONCE #238 grams 07/25/22 gram/dose oral powder (Miralax) bisacodyl 5 mg tablet,delayed 10 mg PO ONCE 1 day #2 tabs 09/20/22 release (Dulcolax (bisacodyl)) docusate sodium 100 mg capsule 100 mg PO BEDTIME #90 caps 09/20/22 (Colace) sennosides 8.6 mg tablet 8.6 mg PO BEDTIME constipation #90 09/20/22 tabs testosterone (AndroGel) 3 pump transdermal DAILY 28 days 12/27/22 #150 grams tramadol 50 mg tablet 50 mg PO TID #90 tabs 01/12/23 cyclobenzaprine 10 mg tablet 10 mg PO TID PRN pain #14 tabs 04/03/23 meloxicam 7.5 mg tablet 7.5 mg PO DAILY #5 tabs 04/03/23 oxycodone 5 mg tablet 5 mg PO Q8H PRN pain #7 tabs 04/03/23 Allergies Allergy/AdvReac Type Severity Reaction Status Date / Time No Known Allergies Allergy Verified 04/03/23 17:44 [No Known Allergies*] Review of Systems Review of Systems: CONSTITUTIONAL: Denies weight loss, fever and chills. HEENT: Denies changes in vision and hearing. RESPIRATORY: Denies SOB and cough. CV: Denies palpitations no CP. GI: Denies abdominal pain, nausea, vomiting and diarrhea. : Denies dysuria and urinary frequency. MSK: + myalgia and joint pain. SKIN: Denies rash and pruritus. NEUROLOGICAL: Denies headache and syncope. PSYCHIATRIC: Denies recent changes in mood. Denies anxiety and depression. All other ROS are negative unless in HPI PMFSH Past Medical History Medical History Atherosclerotic cardiovascular disease Depression Encounter for medication monitoring Essential hypertension History of cardiac arrest (~09/2018) History of non-ST elevation myocardial infarction (NSTEMI) (~09/2018) Other and unspecified hyperlipidemia Peripheral neuropathy Personal history of nicotine dependence Primary osteoarthritis, left hand Primary osteoarthritis, right hand Restless leg syndrome Type 2 diabetes mellitus with unspecified complications Surgical History History of cardiac catheterization (~10/2018) History of cataract surgery (~2017) History of epidermal inclusion cyst excision (~07/2021) History of hand surgery (~03/2015) Family History Family History Mother No problems noted. Mother No problems noted. 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 Physical Exam Vital Signs: Vital Signs: Last Vital Signs Temp 97.9 F 04/03/23 19:51 Pulse 67 04/03/23 19:51 Resp 13 04/03/23 19:51 BP 145/76 H 04/03/23 19:51 Pulse Ox 98 04/03/23 19:51 O2 Del Method Nasal Cannula 04/03/23 19:51 O2 Flow Rate 3 04/03/23 19:51 BMI result Body Mass Index 29.0 GEN: Well developed, no acute distress, alert, oriented HEENT: Normocephalic, atraumatic, normal external ears, nose appears normal, no oropharyngeal edema or exudates Eyes: Normal to appearance Neck: Supple, no lymphadenopathy, tenderness throughout the midline, paraspinous areas, no meningismus Respiratory: Talks in complete sentences, no respiratory distress, clear to auscultation bilaterally Cardiovascular: Regular rate and rhythm, no murmurs rubs or gallops Abdomen: Soft, nontender, nondistended, no guarding, no rebound Back: No CVA tenderness Extremities: No clubbing cyanosis or edema Neurologic: No focal neurologic deficits, cranial nerves 2-12 intact, strength is 5/5 bilaterally Skin: No rash Psych: Tearful anxious appearing Course Course Course Narrative: RME - 73 y/o Icelandic speaking male with history of spondylosis, cervical radiculopathy, HTN, DM, osteoarthritis who presents to the ER for evaluation of ongoing non-traumatic neck pain for the last 1 month. He also has diffuse body pain. He was seen here earlier today and discharged home at 7am with oxycodone and muscle relaxers. He just took the medications by mouth when he arrived to the ER waiting room. He wants to go home. He is erratic and acting confused in triage. He reports a headache and photophobia. Plan: CT head, to go back to treatment room Reevaluation(s) Reevaluation #1: Patient had a brief period where his pulse oximetry went down into the 70s. He was arousable, appropriate oxygen saturations improved shortly Time: 18:23 Reevaluation #2: Patient is feeling much better. He is clear in mind. At this point, I believe patient can be discharged. I discussed all results with the patient. I believe some of his symptoms were related to taking both oxycodone and muscle relaxer. At this point, I instructed the patient take the following medications, a mild anti-inflammatory pain medication, Tylenol as needed and the oxycodone for more severe pain. He will not be taking the muscle relaxer at this time. Time: 20:38 Medications Administered Discontinued Medications Generic Name Dose Route Start Last Admin Trade Name Aleksandarq PRN Reason Stop Dose Admin Ketorolac Tromethamine 15 mg 04/03/23 18:28 04/03/23 20:24 Ketorolac Tromethamine 15 Mg/Ml Vial IVPUSH 04/03/23 18:29 Not Given ONCE ONE Medical Decision Making Medical Decision Making MDM Narrative: 73-year-old male who presents with severe neck pain. Initially in triage, patient appeared confused. On my evaluation, patient is anxious appearing, tearful. He answers questions appropriately. He complains of severe 10/10 pain. He has no focal neurologic deficits. His strength is symmetric in thro ughout. He denies any chest pain or shortness of breath. He did discuss some headache related symptoms. However, he says I am here for my neck. I did review his imaging studies of the cervical spine from earlier today. Showed mild ventral spondylosis of C4 through C5 and C5-C6 disc levels. No visible acute fracture, dislocation or subluxation. Patient was discharged in prescribed oxycodone and cyclobenzaprine. He reports having taken only 1 of each medicine earlier today. This certainly could add to an earlier confusional picture. Will order CT scan review it. Will check laboratory analysis. Will consider optional treatments for pain and discomfort that may have less central neurologic effects. Differential Diagnosis Differential Diagnoses: The differential diagnosis associated with the presentation includes (Sprain, strain, fracture, subluxation, medication effect, muscle spasm, brief confusional episode) Acute neck pain Admission/Observation Consideration of admission/observation: Escalation of care including admission/observation considered (If patient's pain is not appropriately controlled, patient may warrant hospitalization) Lab Data MDM Lab Attestation statement: I reviewed the patient's lab results. 04/03/23 19:34 04/03/23 19:34 Labs: Lab Results 04/03/23 04/03/23 04/03/23 Range/Units 17:33 19:34 19:34 WBC 11.6 H (4.8-10.8) X10*3/uL RBC 4.38 L (4.60-5.80) X10*6/uL Hgb 14.8 (14.0-18.0) g/dl Hct 42.5 (42.0-52.0) % MCV 97.0 (80.0-98.0) fL MCH 33.8 H (27.0-33.0) pg MCHC 34.8 (31.0-36.0) g/dl RDW 13.1 (11.0-16.0) % Plt Count 213 (160-400) X10*3/uL MPV 9.4 (9.4-12.4) fL Immature Gran % (Auto) 0.4 (0.0-0.4) % Neut % (Auto) 70.0 (45-73) % Lymph % (Auto) 20.8 (20-40) % [place] % (Auto) 7.9 (2-11) % Eos % (Auto) 0.3 (0-4) % Baso % (Auto) 0.6 (0-2) % Lymph # (Auto) 2.4 (1.2-4.9) X10*3/uL [place] # (Auto) 0.9 (0.1-1.2) X10*3/uL Eos # (Auto) 0.0 (0.0-0.4) X10*3/uL Baso # (Auto) 0.1 (0.0-0.2) X10*3/uL Abs Immat Gran (auto) 0.05 H (0.00-0.03) X10*3/uL Absolute Neuts (auto) 8.1 (2.0-8.3) x10*3/uL Absolute Nucleated RBC 0.000 (0.0-0.012) X10*3/uL Nucleated RBC % (auto) 0.0 (0.0-0.2) /100WBC ESR 11 (0-15) MM/HR Sodium (135-145) mmol/L Potassium (3.3-5.1) mmol/L Chloride (96-108) mmol/L Carbon Dioxide (22-29) mmol/L Anion Gap (12-20) BUN (9-16) mg/dL Creatinine (0.5-1.4) mg/dL Estim Creat Clear Calc Estimated GFR POC Glucose 131 H (60-115) mg/dL Random Glucose (60-115) mg/dL Calcium (8.4-10.2) mg/dL Magnesium (1.6-2.6) mg/dL Total Bilirubin (0.0-1.0) mg/dL Direct Bilirubin (0.0-0.5) mg/dL AST (5-37) U/L ALT (0-40) U/L Alkaline Phosphatase (39-117) U/L C-Reactive Protein (< or = 0.50) mg/dL Total Protein (6.5-8.0) g/dL Albumin (3.5-5.0) g/dL Urine Color Urine Appearance Urine pH (5.0-9.0) Ur Specific [place] (1.005-1.025) Urine Protein (Neg-Trace) mg/dL Urine Glucose (UA) (Negative) mg/dL Urine Ketones (Negative) mg/dL Urine Blood (Negative) Urine Nitrite (Negative) Ur Leukocyte Esterase (Negative) Urine RBC (0-2) /HPF Urine WBC (0-5) /HPF Ur Squamous Epith Cells (0-2) /HPF Urine Bacteria (None Seen) Hyaline Casts (0-2) /LPF 04/03/23 04/03/23 Range/Units 19:34 19:50 WBC (4.8-10.8) X10*3/uL RBC (4.60-5.80) X10*6/uL Hgb (14.0-18.0) g/dl Hct (42.0-52.0) % MCV (80.0-98.0) fL MCH (27.0-33.0) pg MCHC (31.0-36.0) g/dl RDW (11.0-16.0) % Plt Count (160-400) X10*3/uL MPV (9.4-12.4) fL Immature Gran % (Auto) (0.0-0.4) % Neut % (Auto) (45-73) % Lymph % (Auto) (20-40) % [place] % (Auto) (2-11) % Eos % (Auto) (0-4) % Baso % (Auto) (0-2) % Lymph # (Auto) (1.2-4.9) X10*3/uL [place] # (Auto) (0.1-1.2) X10*3/uL Eos # (Auto) (0.0-0.4) X10*3/uL Baso # (Auto) (0.0-0.2) X10*3/uL Abs Immat Gran (auto) (0.00-0.03) X10*3/uL Absolute Neuts (auto) (2.0-8.3) x10*3/uL Absolute Nucleated RBC (0.0-0.012) X10*3/uL Nucleated RBC % (auto) (0.0-0.2) /100WBC ESR (0-15) MM/HR Sodium 138 (135-145) mmol/L Potassium 4.4 (3.3-5.1) mmol/L Chloride 103 (96-108) mmol/L Carbon Dioxide 26 (22-29) mmol/L Anion Gap 13 (12-20) BUN 27 H (9-16) mg/dL Creatinine 1.17 (0.5-1.4) mg/dL Estim Creat Clear Calc 56.4 Estimated GFR > 60 POC Glucose (60-115) mg/dL Random Glucose 110 (60-115) mg/dL Calcium 10.0 (8.4-10.2) mg/dL Magnesium 1.6 (1.6-2.6) mg/dL Total Bilirubin 1.7 H (0.0-1.0) mg/dL Direct Bilirubin 0.5 (0.0-0.5) mg/dL AST 20 (5-37) U/L ALT 21 (0-40) U/L Alkaline Phosphatase 111 (39-117) U/L C-Reactive Protein < 0.10 (< or = 0.50) mg/dL Total Protein 6.8 (6.5-8.0) g/dL Albumin 4.1 (3.5-5.0) g/dL Urine Color Yellow Urine Appearance Clear Urine pH >= 9.0 (5.0-9.0) Ur Specific [place] 1.020 (1.005-1.025) Urine Protein Trace (Neg-Trace) mg/dL Urine Glucose (UA) >=1000 H (Negative) mg/dL Urine Ketones 15 (Negative) mg/dL Urine Blood Negative (Negative) Urine Nitrite Negative (Negative) Ur Leukocyte Esterase Negative (Negative) Urine RBC 0-2 (0-2) /HPF Urine WBC 0-5 (0-5) /HPF Ur Squamous Epith Cells 0-2 (0-2) /HPF Urine Bacteria None Seen (None Seen) Hyaline Casts 0-2 (0-2) /LPF Independent Interpretation I performed an independent interpretation of an: CT Scan (Head: No acute intracranial findings) Radiology Impression Discussion of test interpretation with radiology: I have reviewed the radiologist's reading. Radiologist Impression: CT/CT head/brain wo IV con IMPRESSION: No acute intracranial pathology. ? ? Dictated By: Johnnie Ricardo MD Signed By: <Electronically signed by Johnnie Ricardo MD in [facility]> 04/03/[address]/CT cervical spine wo IV con IMPRESSION: Mild ventral spondylosis C4-C5 and C5-C6 disc levels. No visible acute fracture, dislocation or subluxation seen. ? Fleischner guidelines were followed. Dictated By: Dariusz Amaya MD Signed By: <Electronically signed by Dariusz Amaya MD in [facility]> 04/03/23 0631 Prescription Management I considered prescription management with: Pain Medication Chronic Conditions Patient?s care impacted by: Diabetes Discharge Plan Discharge Clinical Impression: Neck pain, At risk for polypharmacy Patient Disposition: Home, Self-Care Instructions: Neck Pain (ED) Additional Instructions: For pain you should do the following regimen: Meloxicam 7.5 mg daily for 5 days Tylenol 1000 mg every 6 hours as needed for additional pain relief Oxycodone 5 mg every 8 hours as needed for severe pain. I would avoid cyclobenzaprine at this time as the combination of oxycodone and cyclobenzaprine can cause confusion and somnolence. Prescriptions: New meloxicam 7.5 mg tablet 7.5 mg PO DAILY Qty: 5 0RF No Action testosterone [AndroGel] 20.25 mg/1.25 gram (1.62 %) gel in metered-dose pump 3 pump transdermal DAILY 28 Days Qty: 150 5RF Rx Instructions: apply 3 pump amount over max area on arm daily tramadol 50 mg tablet 50 mg PO TID Qty: 90 2RF benzonatate 200 mg capsule 200 mg PO TID PRN (Reason: cough) 4 Days Qty: 12 0RF cyclobenzaprine 10 mg tablet 10 mg PO TID PRN (Reason: pain) Qty: 14 0RF oxycodone 5 mg tablet 5 mg PO Q8H PRN (Reason: pain) Qty: 7 0RF Rx Instructions: Partial Fill upon patient request. amlodipine 5 mg tablet 5 mg PO QAM pravastatin 40 mg tablet 40 mg PO BEDTIME pramipexole 1 mg tablet 1 mg PO BEDTIME calcitriol 0.5 mcg capsule 0 mcg PO gabapentin 600 mg tablet 600 mg PO BEDTIME Lantus Solostar U-100 Insulin 100 unit/mL (3 mL) insulin pen 8 unit subcut QAM losartan 50 mg tablet 100 mg PO DAILY aspirin [Adult Low Dose Aspirin] 81 mg tablet,delayed release (DR/EC) 81 mg PO DAILY acetaminophen [Tylenol Extra Strength] 500 mg tablet 500 mg PO Q6H PRN cilostazol 100 mg tablet 100 mg PO BID ferrous sulfate 325 mg (65 mg iron) tablet 325 mg PO BID loratadine [Allergy Relief (loratadine)] 10 mg tablet 10 mg PO DAILY Lantus U-100 Insulin 100 unit/mL solution 10 unit subcut DIRECTED insulin aspart U-100 [Novolog FlexPen U-100 Insulin] 100 unit/mL (3 mL) insulin pen 5 unit subcut DIRECTED tamsulosin 0.4 mg capsule 0.4 mg PO DAILY cholecalciferol (vitamin D3) 50 mcg (2,000 unit) capsule 50 mcg PO DAILY trazodone 100 mg tablet 200 mg PO BEDTIME PRN citalopram 20 mg tablet 20 mg PO DAILY hydrochlorothiazide 12.5 mg tablet 12.5 mg PO DAILY (DME) Wrist Brace Large Misc See Rx Instructions .ROUTE .MEDSUPPLY Qty: 2 0RF Rx Instructions: As directed ergocalciferol (vitamin D2) 1,250 mcg (50,000 unit) capsule 1,250 mcg PO QWEEK (DME) FreeStyle Lite Strips Strip See Rx Instructions Not Applicable BID Qty: 10 Rx Instructions: As directed Minerin Creme Cream topical hydrocortisone 2.5 % cream with perineal applicator topical BID (DME) lancets 33 gauge misc See Rx Instructions Not Applicable BID Qty: 100 Rx Instructions: As directed (DME) pen needle, diabetic 31 gauge x 3/16 needle See Rx Instructions .ROUTE BID Qty: 50 Rx Instructions: As directed alcohol swabs Pads, Medicated 0 pad topical Thera-Derm Lotion topical enalapril maleate 20 mg tablet 20 mg PO baclofen 10 mg tablet 10 mg PO TID PRN (Reason: muscle spasm) bisacodyl [Dulcolax (bisacodyl)] 5 mg tablet,delayed release (DR/EC) 10 mg PO ONCE 1 Days Qty: 2 0RF Rx Instructions: take 2 tabs at noon the day before your colonoscopy docusate sodium [Colace] 100 mg capsule 100 mg PO BEDTIME Qty: 90 2RF sennosides 8.6 mg tablet 8.6 mg PO BEDTIME Qty: 90 2RF (DME) pen needle, diabetic [UltiCare Pen Needle] 31 gauge x 5/16 needle See Rx Instructions subcut .MEDSUPPLY Qty: 1200 Rx Instructions: As directed [place] 200-25 mg tablet 1 tab PO DAILY lidocaine 5 % ointment topical tadalafil 20 mg tablet 20 mg PO .PRN 30 Days Qty: 30 0RF Rx Instructions: Take 60 minutes prior to continued activity furosemide 20 mg tablet 40 mg PO DAILY polyethylene glycol 3350 [Miralax] 17 gram/dose powder 238 g PO ONCE Qty: 238 0RF Rx Instructions: As directed by gastroenterology department at [facility] Jardiance 10 mg tablet 10 mg PO DAILY clonazepam 0.5 mg tablet 0.5 mg PO DAILY PRN Referrals: Kristi Warren, [employer] [Primary Care Provider] - 3 days
[2023-04-03 18:00] VITALS: BP 158/82; PULSE 62; RESP 12; O2SAT 98
--- NOTE | 2023-04-03 18:12 | PC.NURSE ---
pt aox4, brought back from triage with neck pain, confusion and photophobia. pt was discharged last night with enck pain and returns with the same symptoms. pt to 2x 5mg oxycodone before being brought to Room2.
--- NOTE | 2023-04-03 18:14 | PC.NURSE ---
pt was in high 90s on room air but fell asleep and desatted to 70s. Pt now on 3L O2
[2023-04-03 19:01] LABS: Glucose, Whole Blood 131 mg/dL (60-115)
[2023-04-03 19:41] LABS: MANUAL DIFF FLAG NO
[2023-04-03 19:42] LABS: Basophils Absolute Auto 0.1 X10*3/uL (0.0-0.2); Basophils Percent Auto 0.6 % (0-2); Eosinophils Percent Auto 0.3 % (0-4); Hematocrit 42.5 % (42.0-52.0); Hemoglobin 14.8 g/dl (14.0-18.0); Imm Gran Abs Auto 0.05 X10*3/uL (0.00-0.03); Imm Gran Pct Auto 0.4 % (0.0-0.4); Lymphocytes Absolute Auto 2.4 X10*3/uL (1.2-4.9); Lymphocytes Percent Auto 20.8 % (20-40); Mean Corpuscular HGB Conc 34.8 g/dl (31.0-36.0); Mean Corpuscular Hemoglobin 33.8 pg (27.0-33.0); Mean Platelet Volume 9.4 fL (9.4-12.4); Monocytes Absolute Auto 0.9 X10*3/uL (0.1-1.2); Monocytes Percent Auto 7.9 % (2-11); Neutrophils Absolute Auto 8.1 x10*3/uL (2.0-8.3); Platelet Count 213 X10*3/uL (160-400); Red Blood Count 4.38 X10*6/uL (4.60-5.80); Red Cell Distribution Width 13.1 % (11.0-16.0); White Blood Count 11.6 X10*3/uL (4.8-10.8)
[2023-04-03 19:51] VITALS: BP 145/76; PULSE 67; RESP 13; TEMP 36.6; O2SAT 98
[2023-04-03 20:05] LABS: Alanine Aminotransferase 21 U/L (0-40); Albumin Level 4.1 g/dL (3.5-5.0); Alkaline Phosphatase 111 U/L (39-117); Anion Gap 13 (12-20); Aspartate Amino Transferase 20 U/L (5-37); Bilirubin Direct 0.5 mg/dL (0.0-0.5); Bilirubin Total 1.7 mg/dL (0.0-1.0); Blood Urea Nitrogen 27 mg/dL (9-16); C Reactive Protein < 0.10 mg/dL (< or = 0.50); Carbon Dioxide 26 mmol/L (22-29); Chloride 103 mmol/L (96-108); Creatinine Clr Calc Pharmacy 56.4; Estimated Glomerular Filt Rate > 60; Glucose Random 110 mg/dL (60-115); Magnesium 1.6 mg/dL (1.6-2.6); Potassium 4.4 mmol/L (3.3-5.1); Sodium 138 mmol/L (135-145); Total Protein 6.8 g/dL (6.5-8.0)
[2023-04-03 20:07] LABS: Appearance Urine Clear; Color Urine Yellow; Glucose Urine UA >=1000 mg/dL (Negative); Leukocyte Esterase Urine Negative (Negative); Nitrite Urine Negative (Negative); PH >= 9.0 (5.0-9.0); UMIC TRIGGER UACC YES; Urine Blood Negative (Negative); Urine Ketones 15 mg/dL (Negative); Urine Protein Trace mg/dL (Neg-Trace)
[2023-04-03 20:18] LABS: Bacteria Urine None Seen (None Seen); Hyaline Casts Urine 0-2 /LPF (0-2); RBC Urine 0-2 /HPF (0-2); Squamous Epithelial Cell Urine 0-2 /HPF (0-2); WBC Urine 0-5 /HPF (0-5)
[2023-04-03 20:20] LABS: Erythrocyte Sedimentation Rate 11 MM/HR (0-15)
== END 2023-04-03 21:08 | disposition home or self-care (01) ==
PROVIDERS: Physician Assistant; Emergency Provider Emergency Medicine; PCP Nurse Practitioner Primary Care
DX: M54.2 Cervicalgia (principal); E11.9 Type 2 diabetes mellitus without complications; I10 Essential (primary) hypertension; F17.210 Nicotine dependence, cigarettes, uncomplicated; Z79.82 Long term (current) use of aspirin; Z79.4 Long term (current) use of insulin; Z79.899 Other long term (current) drug therapy
CPT/HCPCS: 36415; 70450; 71045; 80048; 80076; 81001; 81003; 82947; 83735; 85025; 85652; 86140; 99284

== ENCOUNTER 2023-04-19 09:52 | Outpatient (REF) | payer OTHER, SELFPAY ==
[2023-04-27 01:59] LABS: Testosterone, Total 271 ng/dL (250-1100)
== END 2023-04-19 09:53 | disposition home or self-care (01) ==
LOC: HO.LAB 09:52
PROVIDERS: Visit Provider Urology
DX: Z13.89 Encounter for screening for other disorder (principal)
CPT/HCPCS: 36415; 84403

== ENCOUNTER 2023-04-26 13:41 | Outpatient (AMB) | payer OTHER, SELFPAY ==
[2023-04-26 13:44] VITALS: BP 129/62; PULSE 64; O2SAT 97; BMI 28.1
--- NOTE | 2023-04-26 13:44 | A.OFFVIS_ITS ---
Intake Vital Signs 04/26/23 13:44 Height 5 ft 6 in Weight 174 lb BMI 28.1 BP 129/62 Blood Pressure Location Rt brachial Position Sitting Pulse 64 Pulse Source Pulse Oximeter Pulse Oximetry (%) 97 Oxygen Delivery Method Room Air Intake Visit Reasons: Increasing Back Pain Cool Roofing Installer Required: No Allergies No Known Allergies [No Known Allergies*] Allergy (Verified 04/26/23 13:47) HPI HPI Comments History of Present Illness Details Mr. Baeza is in my office today to discuss for the treatment. He is under care of Dr. Maine Clark and he is receiving carpal tunnel surgeries and he also is scheduled for cubital tunnel surgeries. He complains on severe pain in wasting in elbows sides. He will continue with orthopedics office to improve his pain. Prior: results of the cervical medial branch block which was performed on him on 08/16/2022.? Unfortunately he reports no immediate pain relieve after the injection.? He reports pain aggravation after the injection to level of 10/10 to 8/10.? Interestingly enough he reports pain alleviation in a week after the procedure.? However I cannot consider this as a diagnostic event.? He had MRI performed on his cervical spine with [facility].? We will try to obtain these MRI report.? He will be scheduled for in person appointment with me in couple of weeks.? I would need to evaluate him personally and then evaluate his MRI. Prior: ? Patient is a 72 years old Japanese speaking male presenting with chronic neck pain. He is followed by orthopedic providers for right shoulder pain and has been referred to us for neck pain. Patient reports he recently received right shoulder cortisone injection on 07/07/22 with good relief and continues to have significant neck stiffness, pain with range of motion especially with right lateral bending and muscle tenderness with spasms. Patient reports associated bilateral upper and lower extremities numbness and tingling with history of bilateral carpal tunnel syndrome, diabetic peripheral neuropathy, DM on insulin, osteoarthritis, CKD and restless leg syndrome. Abnormal EMG and NVC for lower extremities on 07/08/20 showed moderate to severe axonal sensory and motor peripheral neuropathy. EMG and NVC for upper extremities on 01/2021 showed severe SM peripheral neuropathy with features of demyelination and axonal loss. Patient is under care of Dr. Fuller from neurology and has been treating peripheral neuropathy with gabapentin and for restless leg syndrome for which he takes pramipexole. For his chronic back and neck pain, the patient has failed previous physical therapy, NSAIDs, Gabapentin, muscle relaxers, and is currently on Tramadol with partial relief. Pain affects his daily activities, functioning and sleep. Patient denies any fever, weight changes, visual disturbances, dizzin ess, bowel or bladder incontinence, or saddle anesthesia. He reports weakness in lower extremities. Ambulates with mild antalgic gait without assisting devices. Patient reports his blood sugars are well controlled and most recent A1C was around 6.0. Last FBS on 03/03/22 was 110. We will reach out to his PCP to confirm the most recent A1C readings. Patient reports receiving a Medrol Santosh a few times for neck pain which provided him significant relief. I discussed with the patient the importance of closely monitoring his blood sugars and total dose of all steroid injections from multiple providers to concentrate on most concerning pain generators as well as avoiding systemic oral steroids. Patient was previously referred to the Hand surgeon but has not been seen yet. Cervical spine xray 05/2022 showed mild levoscoliosis cervical spine with moderate left facet joint arthropathy. No visible acute fracture or dislocation seen. Lumbar spine x-ray showed bilateral pedicle screws at L4 and S1 vertebra with interconnecting rods for posterior fusion. Patient has a history of posterior fusion with hardware from L4-S1 by Dr. Schulz in 2015. He then had a revision for loosening of screws in 2016. Dr. Schulz last saw him in February 2018. Per cardiology report, the patient had a trial of bilateral Medial Branch Blocks at L3, L4, and L5 to address his axial back pain in 2018. Unfortunately, the patient went into cardiac arrest with PEA upon anesthesia induction. He was then successfully resuscitated. Patient also underwent cardiac catheterization but no interventions. Per PCP notes regarding the patient's last colonoscopy in 2009, the patient also had bradycardic cardiac arrest due to anesthesia. [facility] Medical History Atherosclerotic cardiovascular disease Depression Encounter for medication monitoring Essential hypertension History of cardiac arrest (~09/2018) History of non-ST elevation myocardial infarction (NSTEMI) (~09/2018) Other and unspecified hyperlipidemia Peripheral neuropathy Personal history of nicotine dependence Primary osteoarthritis, left hand Primary osteoarthritis, right hand Restless leg syndrome Type 2 diabetes mellitus with unspecified complications Surgical History History of cardiac catheterization (~10/2018) History of cataract surgery (~2017) History of epidermal inclusion cyst excision (~07/2021) History of hand surgery (~03/2015) Family History Mother No problems noted. Mother No problems noted. 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 Review of Systems Const All systems reviewed & are unremarkable except as noted in HPI and below ENT Reports Normal hearing present Neuro Reports Normal hearing present, Denies Abnormal speech present and Denies confusion Psych Denies confusion Physical Exam Vital Signs: Last Vital Signs Pulse 64 04/26/23 13:44 BP 129/62 04/26/23 13:44 Pulse Ox 97 04/26/23 13:44 Oxygen Delivery Method Room Air 04/26/23 13:44 BMI result Body Mass Index 28.1 Const General: cooperative, healthy appearing, no acute distress, alert and awake; No confusion Nutritional Appearance: well nourished Orientation/consciousness: patient oriented x3 and No confusion Limitations: no limitations HEENT Head: Yes normal to inspection, Yes normocephalic and Yes atraumatic Ears: hearing grossly normal bilaterally and external ears normal General nose exam: Normal external nose present and No nasal discharge present Face and sinus: Yes normal facial exam Eyes General: appearance normal, both eyes and all related structures Visual Vuong: normal visual vuong by confrontation Pupils: Equal, round and reactive pupils present EOM: EOMs intact bilaterally Neck Other: Patient with decreased cervical ROM in all planes/especially with right lateral rotation. Reports increased pain with cervical extension and flexion. Spurling compression test equivocal. Pain is unchanged by Spurling maneuver with retraction. Elvey's tension test positive on the right, with radiation of pain from neck to wrist. Bilateral hand pain with h/o CTS. Lhermitte's test was negative. Diminished DTRs bilaterally. Patient demonstrated 5/5 motor strength of bilateral upper extremities. 2 + radial pulses. Significant tightness throughout right upper trapezius as well as TTP throughout bilateral upper trapezius muscles. Mild paravertebral tenderness over facet joints bilaterally. No clonus. Negative Villalobos's bilaterally. Neck: Yes normal visual inspection, Yes no lymphadenopathy, Yes no meningeal signs, Yes supple, No anterior neck swelling and Yes no JVD Resp Effort & Inspection: normal respiratory effort, able to speak in complete sentences, no audible wheezes, no cough, no respiratory distress and symmetric chest movement Cardio Jugular venous distension: no JVD Bruits: no carotid bruits Peripheral pulses: radial pulses present, posterior tibial pulses present and dorsalis pedis present GI Inspection: Yes normal to inspection and No distended Palpation (GI): Soft to palpation and nontender General: Yes no CVA tenderness Back/Spine/Pelvis Back: no CVA tenderness Cervical Spine: cervical muscular tenderness, pain with cervical ROM, cervical spasm, Cervical spine tenderness and No step off deformity Thoracic/Lumbar Spine: thoracic and lumbar spine normal to inspection, Thoracic/lumbar spine scar(s), No paraspinal muscle tenderness, thoraco-lumbar ROM limited, No thoracic spinal tenderness and No lumbar spinal tenderness Skin General skin exam: no rashes or lesions noted Wounds: no wounds Neuro General: patient oriented x3, gait normal, moves all extremities, no meningeal signs, CN's II-XI intact bilaterally and No confusion Cranial nerves: Yes Equal, round and reactive pupils present, Yes Bilaterally intact EOM present, Yes Nystagmus not present, Yes Normal hearing present and Yes Ability to bilaterally elevate shoulders present Cognition (Neuro): normal cognition Speech: No Abnormal speech present Gait exam (Neuro): Antalgic gait present and Assistive device used Motor exam (neuro): 5/5 motor strength present throughout, no tremor noted and Motor abnormalities not present Coordination: [id number] test normal Extrem Other: Bilateral hand and wrist pain with ROM. +Tinels bilaterally. No swelling or redness. General: Yes capillary refill normal, Yes no calf tenderness and Yes pedal edema Psych Appearance: grossly normal Mental Status: mental status grossly normal Speech and movement: Normal speech and movement present Affect: normal affect Attitude: cooperative Thought process: Normal thought process present Thought content: Normal thought content present Insight: Good insight present (Psych) Judgement: Good judgement present (Psych) Assessment & Plan Assessment & Plan (1) Carpal tunnel syndrome, left: Code(s): G56.02 - Carpal tunnel syndrome, left upper limb (2) Carpal tunnel syndrome, right: Comment: Carpal tunnel release 08/29/2022 Code(s): G56.01 - Carpal tunnel syndrome, right upper limb (3) Primary osteoarthritis, left hand: Code(s): M19.042 - Primary osteoarthritis, left hand (4) Primary osteoarthritis, right hand: Code(s): M19.041 - Primary osteoarthritis, right hand (5) Cervical radiculopathy: Code(s): M54.12 - Radiculopathy, cervical region (6) Diabetic peripheral neuropathy: Code(s): E11.42 - Type 2 diabetes mellitus with diabetic polyneuropathy (7) Cervical spondylosis: Code(s): M47.812 - Spondylosis without myelopathy or radiculopathy, cervical region (8) Muscle spasms of neck: Code(s): M62.838 - Other muscle spasm Plan 1. Unfortunately medial branch block C4-C5 C6 bilateral resulted in no pain improvement. 2. I feel it is necessary to complete his cubital tunnel surgery to make the decision about the care of his cervicalgia. 3. Unfortunately with his history of complications of general anesthesia the decision is hard to make. 4. No new appointment at this time. Coding Level of Care Code Est Pt Level 3 (96470) Diagnoses Carpal tunnel syndrome, left G56.02 Carpal tunnel syndrome, right G56.01 Primary osteoarthritis, left hand M19.042 Primary osteoarthritis, right hand M19.041 Cervical radiculopathy M54.12 Diabetic peripheral neuropathy E11.42 Cervical spondylosis M47.812 Muscle spasms of neck M62.838
== END 2023-04-26 14:08 | disposition home or self-care (01) ==
PROVIDERS: PCP Nurse Practitioner Primary Care; Visit Provider Anesthesiology
DX: G56.02 Carpal tunnel syndrome, left upper limb (principal); G56.01 Carpal tunnel syndrome, right upper limb; M19.042 Primary osteoarthritis, left hand; M19.041 Primary osteoarthritis, right hand; M54.12 Radiculopathy, cervical region; E11.42 Type 2 diabetes mellitus with diabetic polyneuropathy; M47.812 Spondylosis without myelopathy or radiculopathy, cervical region; M62.838 Other muscle spasm
CPT/HCPCS: 99214

== ENCOUNTER → 2023-04-26 13:41 | Outpatient (BNVA) | payer OTHER, SELFPAY | PROVIDERS: PCP Nurse Practitioner Primary Care; Visit Provider Anesthesiology | DX: G56.03 Carpal tunnel syndrome, bilateral upper limbs (principal); M19.041 Primary osteoarthritis, right hand; M19.042 Primary osteoarthritis, left hand; M54.12 Radiculopathy, cervical region; M47.812 Spondylosis without myelopathy or radiculopathy, cervical region; M62.838 Other muscle spasm; E11.42 Type 2 diabetes mellitus with diabetic polyneuropathy | CPT/HCPCS: 99212 ==

== ENCOUNTER 2023-05-03 13:09 | Outpatient (AMB) | payer OTHER, SELFPAY ==
[2023-05-03 13:35] VITALS: BMI 28.1
--- NOTE | 2023-05-03 13:35 | A.OFFVIS_ITS ---
Intake Vital Signs 05/03/23 13:35 Height 5 ft 6 in Weight 174 lb BMI 28.1 Intake Visit Reasons: Ov- EMG review Intake Note: Albert 73 yr old male presents today for his EMG review of his left hand. Patient reports that there are no changes. Allergies No Known Allergies [No Known Allergies*] Allergy (Verified 05/03/23 14:12) HPI Ov- EMG review HPI Details Albert silveira is a 72 year old Macedonian speaking man who presents for a NCS review of his LUE. He is S/P right Carpal tunnel release, DOS: 08/29/22. When he was last seen on 01/25/23 he was scheduled for a right cubital tunnel release. The patient did not reply to attempts at contact prior to surgery and this was cancelled. He says he had some phone difficulties but these are resolved now. He complains of dense numbness to the small finger of his right hand and says he has some clumsiness in his hand. He has numbness in the median nerve distribution of the left hand. He is S/P bilateral C4-C5-C6 MBBs with local under fluoroscopy by Pain Management on 08/16/22 for his cervicalgia. He is being seen by Dr. Rollins in pain Management for cervical radiculopathy ? He has recently lost weight and is unsure why. He is supposed to meet with his PCP soon and will mention his weight loss at this appointment Please see my note from 01/25/23 for more information He has a history of cardiac arrest following general anesthesia [facility] Medical History Atherosclerotic cardiovascular disease Depression Encounter for medication monitoring Essential hypertension History of cardiac arrest (~09/2018) History of non-ST elevation myocardial infarction (NSTEMI) (~09/2018) Other and unspecified hyperlipidemia Peripheral neuropathy Personal history of nicotine dependence Primary osteoarthritis, left hand Primary osteoarthritis, right hand Restless leg syndrome Type 2 diabetes mellitus with unspecified complications Surgical History History of cardiac catheterization (~10/2018) History of cataract surgery (~2017) History of epidermal inclusion cyst excision (~07/2021) History of hand surgery (~03/2015) Family History Mother No problems noted. Mother No problems noted. 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 Dense numbness to the ulnar nerve distribution of the right hand No thenar wasting He does have intrinsic wasting He can ABduct and ADduct his fingers Vascular: Cap refill brisk ROM: He can make a fist and extend all his digits Smooth wrist range of motion without pain Nerve Conduction Studies: IMPRESSION: Severe end stage carpal tunnel syndrome on the right Severe carpal tunnel syndrome on the left EMG of the C5-T1 innervated muscles bilaterally consistent with denervation in t he APB muscles consisten with severe median neuropathy Dr. Santa 03/15/23 IMPRESSION: Severe end stage right carpal tunnel syndrome Severe right cubital tunnel syndrome Dr. Santa 09/14/22 IMPRESSION:? This study revealed severe sensory motor peripheral neuropathy with features of demyelination and axonal loss. It was also somewhat asymmetric.?I recommend investigating for underlying autoimmune or infective etiologies. Silverio Fuller MD 01/28/2021 Psych Appearance: grossly normal Affect: normal affect Attitude: cooperative Assessment & Plan Assessment & Plan (1) Carpal tunnel syndrome of right wrist: Code(s): G56.01 - Carpal tunnel syndrome, right upper limb (2) Cubital tunnel syndrome on right: Code(s): G56.21 - Lesion of ulnar nerve, right upper limb (3) Carpal tunnel syndrome, left: Code(s): G56.02 - Carpal tunnel syndrome, left upper limb (4) Cervical radiculopathy: Code(s): M54.12 - Radiculopathy, cervical region (5) Type 2 diabetes mellitus with unspecified complications: Code(s): E11.8 - Type 2 diabetes mellitus with unspecified complications Plan Assessment & Plan: 1. Right Cubital tunnel syndrome, Severe With dense numbness and intrinsic wasting I educated him about this condition I discussed treatment options I recommend surgery, and he is in agreement I explained to him that this surgery may not result in his sensation returning, but it should prevent any further clumsiness or muscle loss The risks and benefits of operative treatment were discussed with the patient and the patient wishes to proceed with surgery. These risks include, but are not limited to risk of damage to blood vessels, nerves, tendons, infection, recurrence, incomplete relief of preoperative symptoms, persistent pain, possible need for further surgery and the risks associated with regional blocks and anesthesia. The plan is to take the patient to the operating room sometime in the next few weeks for the following procedures: 1. Right cubital tunnel release vs ulnar transposition, under general All of the preoperative paperwork including the consent was filled out today. All the patient's questions were answered. The patient understands that they will be contacted by our scrap materials buyer soon to schedule this procedure He denies blood thinners, asthma, lung, kidney issues He is a Diabetic, we do not have a Hemoglobin A1c on file but he says his most recent was <6.0% Upon reviewing previous provider notes, the patient has a Hx of cardiac arrest and Bradycardia when given general anesthesia. He will need Cardiac clearance prior to surgery. Taken from Dr. Rollins's note on 04/26/23: Per cardiology report, the patient had a trial of bilateral Medial Branch Blocks at L3, L4, and L5 to address his axial back pain in 2018. Unfortunately, the patient went into cardiac arrest with PEA upon anesthesia induction. He was then successfully resuscitated. Patient also underwent cardiac catheterization but no interventions. Per PCP notes regarding the patient's last colonoscopy in 2009, the patient also had bradycardic cardiac arrest due to anesthesia.? 2. Left Carpal tunnel syndrome, severe With dense numbness and thenar wasting We can discuss treatment for his left hand when he has recovered from his right side surgery 3. Right Carpal Tunnel syndrome, S/P release DOS: 08/29/22 Pre-operatively with dense numbness and thenar wasting Post-operatively with improved but he thinks probably not normal sensation and good resolution of his nighttime symptoms Scribed for Maine Clark MD by Dominik Davidson, medical hospital sales, on 05/03/23 at 2:40 PM, EST. Coding Level of Care Code Est Pt Level 4 (38617) Diagnoses Carpal tunnel syndrome of right wrist G56.01 Cubital tunnel syndrome on right G56.21 Carpal tunnel syndrome, left G56.02 Cervical radiculopathy M54.12 Type 2 diabetes mellitus with unspecified complications E11.8
== END 2023-05-03 14:47 | disposition home or self-care (01) ==
PROVIDERS: PCP Nurse Practitioner Primary Care; Visit Provider Orthopaedic Surgery
DX: G56.01 Carpal tunnel syndrome, right upper limb (principal); G56.21 Lesion of ulnar nerve, right upper limb; G56.02 Carpal tunnel syndrome, left upper limb; E11.8 Type 2 diabetes mellitus with unspecified complications
CPT/HCPCS: 99214

== ENCOUNTER → 2023-05-03 13:09 | Outpatient (BNVA) | payer OTHER, SELFPAY | PROVIDERS: PCP Nurse Practitioner Primary Care; Visit Provider Orthopaedic Surgery | DX: G56.02 Carpal tunnel syndrome, left upper limb (principal); M54.12 Radiculopathy, cervical region; E11.8 Type 2 diabetes mellitus with unspecified complications; Z86.69 Personal history of other diseases of the nervous system and sense organs | CPT/HCPCS: 99212 ==

== ENCOUNTER 2023-05-11 11:32 | Outpatient (AMB) | payer OTHER, SELFPAY ==
--- NOTE | 2023-05-11 11:34 | MHC.OFFVIS ---
Intake Intake Visit Reasons: 3m/labs(SET) Intake Note: Patient is present for Follow Up Urology Med:Tadalafil, Tamsulosin, Testosterone Antibiotic Allergy: None Blood Thinner: Aspirin Pharmacy: [facility] [place] Allergies No Known Allergies [No Known Allergies*] Allergy (Verified 05/03/23 14:12) HPI HPI Comments History of Present Illness Details Albert is a pleasant male. He is a patient of Dr. Warren. He is seen for the following urologic conditions - hypogonadism - erectile dysfunction Togolese translation provided by qualified chief medical technologist Feeling approved for being Continue to apply testosterone properly Use 3 pumps Refill in repeat labs in 6 months Hypogonadism Ongoing management Current therapy - AndroGel 3 pumps daily Laboratories 07/28 T 400, PSA 0.6, 05/29 T195 PSA 2.5, 08/29 T340 PSA 1.2, 11/30 T 500 P 1.4 - 01/28 T 172 P 0.83, 06/30 T 296 0.5 40, 12/01 179 1.0, 04/30 271 0.65 Continue with topical therapy Repeat lab work in 6 months Erectile dysfunction Multifactorial History of diabetes and vascular disease with prior smoking history [facility] Medical History Atherosclerotic cardiovascular disease Depression Encounter for medication monitoring Essential hypertension History of cardiac arrest (~09/2018) History of non-ST elevation myocardial infarction (NSTEMI) (~09/2018) Other and unspecified hyperlipidemia Peripheral neuropathy Personal history of nicotine dependence Primary osteoarthritis, left hand Primary osteoarthritis, right hand Restless leg syndrome Type 2 diabetes mellitus with unspecified complications Surgical History History of cardiac catheterization (~10/2018) History of cataract surgery (~2017) History of epidermal inclusion cyst excision (~07/2021) History of hand surgery (~03/2015) Family History Mother No problems noted. Mother No problems noted. 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 Review of Systems Const Denies chills and Denies fever(s) Card Reports no additional complaints and Denies syncope Resp Denies cough GI Denies abdominal pain and Denies heartburn Reports as per HPI and Denies change in libido Neuro Denies syncope Psych Denies change in libido Endo Denies change in libido Physical Exam Const General: cooperative, healthy appearing, comfortable and no acute distress Orientation/consciousness: patient oriented x3 HEENT Face and sinus: Yes normal facial exam Mouth: moist mucous membranes Neck Neck: Yes normal visual inspection, Yes full ROM and Yes trachea midline Chest Chest palpation & inspection: normal inspection of the chest Resp Effort & Inspection: normal respiratory effort, able to speak in complete sentences and no respiratory distress GI Inspection: Yes normal to inspection Back/Spine/Pelvis Cervical Spine: normal cervical lordosis Thoracic/Lumbar Spine: thoracic and lumbar spine normal to inspection Skin General skin exam: no rashes or lesions noted Neuro General: patient oriented x3, gait normal, tone normal and moves all extremities Extrem General: Yes normal to inspection and Yes capillary refill normal Assessment & Plan Assessment & Plan (1) Erectile dysfunction associated with type 2 diabetes mellitus: Code(s): E11.69 - Type 2 diabetes mellitus with other specified complication; N52.1 - Erectile dysfunction due to diseases classified elsewhere (2) Hypogonadism in male: Code(s): E29.1 - Testicular hypofunction Plan Six months labs follow-up Orders: Orders Prostate Specific Antigen 6 Months E11.69 - Type 2 diabetes mellitus with other specified complication, N52.1 - Erectile dysfunction due to diseases classified elsewhere Testosterone, Total 6 Months E11.69 - Type 2 diabetes mellitus with other specified complication, N52.1 - Erectile dysfunction due to diseases classified elsewhere Complete Blood Count no Diff 6 Months E11.69 - Type 2 diabetes mellitus with other specified complication, N52.1 - Erectile dysfunction due to diseases classified elsewhere Patient Instructions: Imaging studies, laboratory and physical exam results were discussed and reviewed in detail. No major barriers to patient understanding were identified. An opportunity to ask questions regarding the treatment plan was provided. All questions were answered. The patient expressed understanding and agreement with the above treatment plan. The patient is aware they should contact our office by phone for worsening of their current condition or the appearance of new urologic symptoms. Compliance is encouraged with any medications and followup testing that is ordered. It is a privilege to participate in the urologic care of your patient. If you have any questions or concerns regarding treatment for the above conditions, or other urologic issues, please do not hesitate to contact me. The office telephone contact is [phone]. This note is constructed using voice recognition software. While every effort has been made to ensure accuracy contact acid plant operator helper errors may have been included. Yours sincerely, Dr Mango Ragland MD, [facility] - Urology Providers of Expert, Compassionate Care for the Genitourinary System Coding Level of Care Code Est Pt Level 3 (88627) Diagnoses Erectile dysfunction associated with type 2 diabetes mellitus E11.69; N52.1 Hypogonadism in male E29.1
== END 2023-05-11 12:28 | disposition home or self-care (01) ==
PROVIDERS: Visit Provider Urology
DX: E11.69 Type 2 diabetes mellitus with other specified complication (principal); N52.1 Erectile dysfunction due to diseases classified elsewhere; E29.1 Testicular hypofunction
CPT/HCPCS: 99213

== ENCOUNTER → 2023-05-11 11:32 | Outpatient (BNVA) | payer OTHER, SELFPAY | PROVIDERS: Visit Provider Urology | DX: E11.69 Type 2 diabetes mellitus with other specified complication (principal); E29.1 Testicular hypofunction; N52.1 Erectile dysfunction due to diseases classified elsewhere | CPT/HCPCS: 99212 ==

== ENCOUNTER 2023-05-17 09:24 | Outpatient (AMB) | payer OTHER, SELFPAY ==
--- NOTE | 2023-05-17 09:22 | MHC.OFFVIS ---
Intake Vital Signs 05/17/23 09:32 Height 5 ft 6 in Weight 174 lb BMI 28.1 BP 90/54 L Blood Pressure Location Lt brachial Intake Visit Reasons: PRE-OP PRIOR TO ELBOW SURGERY. Intake Note: pre op Media Marketing Manager Required: Yes Media Marketing Manager Language: Public Transit Bus Driver Name: [id number] [place] Allergies No Known Allergies [No Known Allergies*] Allergy (Verified 05/17/23 09:30) Medication List - Last Reconciled 05/17/23 by Amraan Almazan MD acetaminophen (Tylenol Extra Strength) 500 mg PO Q6H PRN alcohol swabs 0 pad topical amlodipine 5 mg PO QAM arm brace (Wrist Brace Large) As directed aspirin (Adult Low Dose Aspirin) 81 mg PO DAILY baclofen 10 mg PO TID PRN benzonatate 200 mg PO TID PRN 4 days bisacodyl (Dulcolax (bisacodyl)) 10 mg (2 x 5 mg) PO ONCE 1 day bisacodyl (Dulcolax (bisacodyl)) 10 mg (2 x 5 mg) PO ONCE 1 day blood sugar diagnostic As directed calcitriol 0 mcg PO cholecalciferol (vitamin D3) 50 mcg PO DAILY cilostazol 100 mg PO BID citalopram 20 mg PO DAILY clonazepam 0.5 mg PO DAILY PRN cyclobenzaprine 10 mg PO TID PRN docusate sodium (Colace) 100 mg PO BEDTIME empagliflozin (Jardiance) 10 mg PO DAILY emtricitabine-tenofovir alafen 200-25 mg (Descovy) 1 tab PO DAILY enalapril maleate 20 mg PO ergocalciferol (vitamin D2) 1,250 mcg PO QWEEK ferrous sulfate 325 mg PO BID furosemide 40 mg PO DAILY gabapentin 600 mg PO BEDTIME hydrochlorothiazide 12.5 mg PO DAILY hydrocortisone 2.5% topical BID insulin aspart U-100 (Novolog FlexPen U-100 Insulin aspart) 5 units subcut DIRECTED insulin glargine 8 units subcut QAM insulin glargine (Lantus U-100 Insulin) 10 units subcut DIRECTED lancets As directed lanolin [id number].pet-ceres appl topical lanolin-mineral oil topical lidocaine 5% topical loratadine (Allergy Relief (loratadine)) 10 mg PO DAILY losartan 100 mg PO DAILY meloxicam 7.5 mg PO DAILY oxycodone 5 mg PO Q8H PRN pen needle, diabetic As directed pen needle, diabetic (UltiCare Pen Needle) As directed polyethylene glycol 3350 (Miralax) 238 grams PO ONCE pramipexole 1 mg PO BEDTIME pravastatin 40 mg PO BEDTIME sennosides 8.6 mg PO BEDTIME tadalafil 20 mg PO .PRN 30 days tamsulosin 0.4 mg PO DAILY testosterone (AndroGel) 3 pumps transdermal DAILY 28 days tramadol 50 mg PO TID trazodone 200 mg PO BEDTIME PRN HPI HPI Comments History of Present Illness Details Albert returns for follow-up regarding coronary artery disease. Last seen in 2020. To recall, he came for elective back injection in 2018 due to back pain. Upon induction of anesthesia, he developed PEA type cardiac arrest. He was then successfully resuscitated. Elevated troponins at that time suggesting NSTEMI, probably from demand ischemia/infarct in the setting of hypoxia. Multiple vascular risk factors including diabetes on insulin, hypertension, dyslipidemia. He underwent cardiac catheterization but no interventions. Had nonobstructive CAD. Now he has been referred for preoperative evaluation prior to orthopedic surgery- right cubital tunnel release versus ulnar transposition under general anesthesia. He states that he has been doing well in the last couple of years. Has not had any clear cardiac issues. No angina. Otherwise, getting along okay. [facility] Medical History Atherosclerotic cardiovascular disease Depression Encounter for medication monitoring Essential hypertension History of cardiac arrest (~09/2018) History of non-ST elevation myocardial infarction (NSTEMI) (~09/2018) Other and unspecified hyperlipidemia Peripheral neuropathy Personal history of nicotine dependence Primary osteoarthritis, left hand Primary osteoarthritis, right hand Restless leg syndrome Type 2 diabetes mellitus with unspecified complications Surgical History History of cardiac catheterization (~10/2018) History of cataract surgery (~2017) History of epidermal inclusion cyst excision (~07/2021) History of hand surgery (~03/2015) Family History Mother No problems noted. Mother No problems noted. 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 Review of Systems Const Denies weakness ENT Denies dizziness Card Denies chest pain, Denies chest pain with activity, Denies syncope, Denies rapid heart rate, Denies pedal edema, Denies edema, Denies leg edema, Denies lightheadedness, Denies palpitations, Denies dyspnea, Denies dyspnea on exertion and Denies orthopnea Resp Denies cough, Denies dyspnea and Denies dyspnea on exertion GI Denies hematochezia and Denies change in stool character Musc Denies abnormal gait, Denies muscle cramps, Denies muscle weakness, Denies numbness, Denies radiating pain into limb and Denies tingling Neuro Denies abnormal gait, Denies dizziness, Denies syncope, Denies numbness, Denies tingling and Denies weakness Endo Denies palpitations Physical Exam Vital Signs: Last Vital Signs BP 90/54 L 05/17/23 09:32 BMI result Body Mass Index 28.1 Const General: comfortable and no acute distress Orientation/consciousness: patient oriented x3 HEENT Other: Unremarkable Head: Yes normal to inspection Neck Neck: Yes normal visual inspection Chest Chest palpation & inspection: normal inspection of the chest Resp Auscultation: clear to auscultation bilaterally Cardio Palpation: normal PMI Heart sounds: S1 normal heart sound present, S2 normal heart sound present, no gallops, no murmurs and no rubs GI Palpation (GI): Soft to palpation Back/Spine/Pelvis Other: unremarkable Skin General skin exam: no rashes or lesions noted Neuro General: patient oriented x3 Extrem General: Yes normal to inspection Psych Mental Status: mental status grossly normal Assessment & Plan Assessment & Plan (1) Preoperative cardiovascular examination: Code(s): Z01.810 - Encounter for preprocedural cardiovascular examination Plan: Due to previous issues with anesthesia, will require updated testing. Echocardiogram/stress test being ordered. He is coming with a cane and hence cannot do ETT. Pharmacological stress test with Lexiscan. (2) Atherosclerotic cardiovascular disease: Code(s): I25.10 - Atherosclerotic heart disease of [place] coronary artery without angina pectoris Plan: [id number] LVEF, 60-65% and no significant valvular pathology Myocardial perfusion imaging study-2019- mild intensity inferior ischemia Cardiac catheterization - 2019- mid LAD 60% stenosis; mid RCA 65-70% stenosis but IFR/FFR negative. He does not have any clear symptoms like angina. However, due to prior history of PA arrest during anesthesia, we will reassess with repeat stress test and echo as above. (3) Type 2 diabetes mellitus with unspecified complications: Code(s): E11.8 - Type 2 diabetes mellitus with unspecified complications Plan: Listed to be on insulin. (4) Essential hypertension: Code(s): I10 - Essential (primary) hypertension Plan: Unsure medications or doses. Will need to call the pharmacy. Blood pressure seems to be on the lower side today and was checked both arms. Probably lower doses but we do not know which meds he actually takes. (5) Other and unspecified hyperlipidemia: Code(s): E78.5 - Hyperlipidemia, unspecified Plan: Last available LDL 60 mg/dL. Prior to that, in the 40s. Overall seems controlled. Orders: Orders CA lexiscan stress w ela Today I20.9 - Angina pectoris, unspecified, I25.10 - Atherosclerotic heart disease of [place] coronary artery without angina pectoris NM cardiolite stress test Today I25.10 - Atherosclerotic heart disease of [place] coronary artery without angina pectoris, R07.2 - Precordial pain CA echo transthoracic complete Today I25.10 - Atherosclerotic heart disease of [place] coronary artery without angina pectoris Medications: Discontinued tadalafil Take 60 minutes prior to continued activity Discontinued Reason: Patient no longer taking 20 mg PO .PRN 30 days 30 tabs 0RF sexual activity N52.01 - Erectile dysfunction due to arterial insufficiency Coding Level of Care Code Est Pt Level 4 (49287) Diagnoses Preoperative cardiovascular examination Z01.810 Atherosclerotic cardiovascular disease I25.10 Type 2 diabetes mellitus with unspecified complications E11.8 Essential hypertension I10 Other and unspecified hyperlipidemia E78.5
[2023-05-17 09:32] VITALS: BP 90/54; BMI 28.1
== END 2023-05-17 09:48 | disposition home or self-care (01) ==
LOC: HO.HCSM 09:24
PROVIDERS: PCP Nurse Practitioner Primary Care; Visit Provider Internal Medicine
DX: Z01.810 Encounter for preprocedural cardiovascular examination (principal); I25.10 Atherosclerotic heart disease of native coronary artery without angina pectoris; E11.8 Type 2 diabetes mellitus with unspecified complications; I10 Essential (primary) hypertension; E78.5 Hyperlipidemia, unspecified
CPT/HCPCS: 99214

== ENCOUNTER → 2023-05-17 09:24 | Outpatient (BNVA) | payer OTHER, SELFPAY | PROVIDERS: PCP Nurse Practitioner Primary Care; Visit Provider Internal Medicine | DX: Z01.810 Encounter for preprocedural cardiovascular examination (principal); I25.10 Atherosclerotic heart disease of native coronary artery without angina pectoris; I10 Essential (primary) hypertension; E11.8 Type 2 diabetes mellitus with unspecified complications; E78.5 Hyperlipidemia, unspecified | CPT/HCPCS: 99212 ==

== ENCOUNTER → 2023-06-20 08:53 | Outpatient (REF) | payer OTHER, SELFPAY ==
--- NOTE | ~2023-06-20 | NM_ITS ---
Lexiscan Myocardial perfusion study Indication: Coronary artery disease, preoperative evaluation, assess for ischemia Technique: The patient was brought in for a Lexiscan perfusion study on 06/20/2023 and was injected 0.4 mg of Lexiscan intravenously. Within a minute of this injection 30 mCi of sestamibi was given intravenously. Images were obtained using the SPECT gamma camera interlaced with the gating device. Images were obtained in supine position. Resting perfusion study was performed on 06/22/2023. Patient was administered 30 mCi of sestamibi intravenously at rest. Images were then obtained in supine position. Images were processed with the software and compared side to side in short axis, horizontal long axis and vertical long axis views. Total DLP 140mGy-cm. Findings: Raw acquisition reviewed. Arms by the patient's side. The stress perfusion study showed no significant perfusion abnormality. Both uncorrected as well as CT attenuation corrected images were reviewed. The gated study shows normal LV systolic function with calculated LVEF of 54%. LV cavity is normal in size. The gated study shows normal wall thickening and contraction of segments. Resting study shows no significant perfusion abnormality. Gating at rest reveals normal wall motion with ejection fraction at 55%. The findings are consistent with no clear reversible or fixed perfusion defects. MS/MS cardiolite stress test Impression: 1. Myocardial perfusion imaging study shows likely normal myocardial perfusion. 2. Gated LVEF is 54% during stress and 55% during rest. 3. Transient ischemic dilatation not present. EKG component of the test reported separately.
--- NOTE | 2023-06-20 08:57 | CA_ITS ---
Acquisition Time: 2023-06-20 09:40:02 Total Exercise Time: 00:02:00 Test Indications: CAD, PREOP Medications: SEE H Protocol: LEXISCAN Max HR: 088 BPM 59% of Pred: 147 BPM Max BP: 116/064 mmHG Max Work Load: 1.0 METS Pharmaoclgoical stress test with lexiscan injection while sitting and kicking his legs, without anginal symptoms, PVCs and 1 ventricular cuplet in pretest, isolated PVCs during test, with normotensive response to injection, with nondiagnoistic EKGs. Nuclear images pending. Test reviewed with Dr. Almazan. Referred By: Armaan Almazan Overread By: Saundra Ruiz
== END ==
LOC: HO.CARD 08:53
PROVIDERS: PCP Nurse Practitioner Primary Care; Visit Provider Internal Medicine
DX: R07.2 Precordial pain (principal); I25.119 Atherosclerotic heart disease of native coronary artery with unspecified angina pectoris
CPT/HCPCS: 78452; 93017; A9500; J0280; J2785

== ENCOUNTER → 2023-06-20 08:57 | Outpatient (BNV) | payer OTHER, SELFPAY | PROVIDERS: PCP Nurse Practitioner Primary Care; Visit Provider Nurse Practitioner | DX: I25.10 Atherosclerotic heart disease of native coronary artery without angina pectoris (principal) | CPT/HCPCS: 78452; 93016; 93018 ==

== ENCOUNTER → 2023-06-23 12:40 | Outpatient (REF) | payer OTHER, SELFPAY ==
--- NOTE | 2023-06-23 12:44 | CA_ITS ---
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 Study Quality: Adequate ECG Rhythm: Sinus Conclusions: - The left ventricular systolic function is low normal. The calculated ejection fraction is 54% by biplane method. - No obvious valvular pathology seen on this study. - There is mild dilatation of the ascending aorta measuring 4.30 cm. Findings Left Ventricle Normal left ventricular cavity size. The left ventricular systolic function is low normal. The calculated ejection fraction is 54% by biplane method. There is no evidence of regional wall motion abnormalities. Evidence suggests grade I (mild) diastolic dysfunction. Focal hypertrophy of the basal septum. Right Ventricle Normal right ventricular cavity size and systolic function. Atria Both atria are normal in size. Aortic Valve There is a normal trileaflet aortic valve. There is no aortic valve stenosis. There is no aortic valve regurgitation. Mitral Valve There is mild anterior mitral leaflet thickening. There is no mitral valve regurgitation. There is no mitral valve stenosis. Pulmonic Valve The pulmonic valve is likely normal. Tricuspid Valve There is no tricuspid valve regurgitation. There is no evidence of pulmonary hypertension. Great Vessels There is mild dilatation of the ascending aorta measuring 4.30 cm. Venous The inferior vena cava is normal in size and collapses greater than 50% with inspiration. Pericardium/Pleural There is no evidence of pericardial effusion. Prior Study Comparison Changes noted compared to prior study dated: 09/29/2018. Slight decrease in LVEF. Ascending aorta enlarged. Recommendations, Care & Conclusions No obvious valvular pathology seen on this study. Measurements 2D Linear Measurements IVSd: 0.62 0.6-0.9/0.6-1.0 cm LVIDd: 4.48 3.9-5.3/4.2-5.9 cm LVIDd Index: 2.29 2.4-3.2/2.2-3.1 cm/m2 LVIDs: 3.31 2.0-3.6 cm LVPWd: 0.69 0.7-1.1 cm LA Diam: 3.00 2.7-3.8/3.0-4.0 cm LAIDs Index: 1.53 1.5-2.3 cm/m2 LV Mass: 108.46 67-162/88-224 g LV Mass Index: 55.34 43-95/49-115 g/m2 LVOT Diam: 2.60 3.0+(-)1.3 cm 2D Systolic Function EF 4C: 54.50 >55% EF 2C: 55.40 >55% EF BiP: 53.80 >55% Mitral Valve MV Pk E: 0.92 MV PK A: 1.17 MV Decel Time: 195.00 E/A: 0.80 E'Lateral: 5.98 E'Medial: 6.42 E/E' Med: 14.30 E/E' Lat: 15.40 PHT: 57.00 MVA PHT: 3.86 Decel Petroleum: 4.73 Aortic Valve AoV Pk Binh: 0.74 AoV Pk Grad: 2.00 OSMAN: 4.70 LVOT LVOT Pk Binh: 0.69 LVOT Mn Binh: 0.45 LVOT VTI: 0.15 LVOT Pk Grad: 2.00 LVOT Mn Grad: 1.00 LVOT Diam: 2.60 LVOT Area: 5.31 Diastolic Function MV Pk E: 0.92 MV Pk A: 1.17 E/A: 0.80 E'Medial: 6.42 E/E' Med: 14.30 E' Laterial: 5.98 E/E' Lat: 15.40 Right Ventricle TAPSE (mm): 18.00 TVS' Binh: 10.70 Tricuspid Valve RA Press: 3.00 Great Vessels Aorta Sinus of Valsalva: 3.80 2.0-3.5 cm Ao Asc: 4.30 2.1-3.4 cm Pulmonary Veins Pulm Vein S/D 0.90 Pulmonary Valve PV Pk Binh: 0.67 Peak PV Grad: 2.00 Updated in Other Vendor System with Status of Final Armaan Almazan MD electronically signed on 06/24/2023 12:59:01 PM with status of Final
== END ==
LOC: HO.CARD 12:40
PROVIDERS: PCP Nurse Practitioner Primary Care; Visit Provider Internal Medicine
DX: I25.10 Atherosclerotic heart disease of native coronary artery without angina pectoris (principal)
CPT/HCPCS: 93306

== ENCOUNTER → 2023-06-23 12:44 | Outpatient (BNV) | payer OTHER, SELFPAY | PROVIDERS: PCP Nurse Practitioner Primary Care; Visit Provider Internal Medicine | DX: I25.10 Atherosclerotic heart disease of native coronary artery without angina pectoris (principal) | CPT/HCPCS: 93306 ==

== ENCOUNTER 2023-08-02 09:53 | Outpatient (AMB) | payer OTHER, SELFPAY ==
--- NOTE | 2023-08-02 10:09 | MHC.OFFVIS ---
Intake Vital Signs 08/02/23 10:10 Height 5 ft 6 in Weight 190 lb 11.198 oz BMI 30.8 BP 124/58 L Blood Pressure Location Lt brachial Position Sitting Pulse 67 Pulse Source Pulse Oximeter Temp 97.3 F Temp Source Skin Pulse Oximetry (%) 95 Intake Visit Reasons: OA Intake Note: Pt presents today for follow up and test results. Following with pain mgmt and ortho. Coil Spring Assembler Required: Yes Coil Spring Assembler Name: Mesfin Mckeon Information Interpreted: clinical only Accompanied by: Self / Same As Patient Allergies No Known Allergies [No Known Allergies*] Allergy (Verified 08/02/23 10:14) Medication List - Last Reconciled 08/02/23 by Les Ceron MD acetaminophen (Tylenol Extra Strength) 500 mg PO Q6H PRN alcohol swabs 0 pad topical amlodipine 5 mg PO QAM arm brace (Wrist Brace Large) As directed aspirin (Adult Low Dose Aspirin) 81 mg PO DAILY bisacodyl (Dulcolax (bisacodyl)) 10 mg (2 x 5 mg) PO ONCE 1 day blood sugar diagnostic As directed calcitriol 0.25 mcg PO cilostazol 100 mg PO BID cyclobenzaprine 10 mg PO TID PRN docusate sodium (Colace) 100 mg PO BEDTIME empagliflozin (Jardiance) 10 mg PO DAILY ergocalciferol (vitamin D2) 1,250 mcg PO QWEEK ferrous sulfate 325 mg PO BID furosemide 40 mg PO DAILY gabapentin 600 mg PO BEDTIME hydrochlorothiazide 12.5 mg PO DAILY meclizine 12.5 mg PO TID PRN meloxicam 7.5 mg PO DAILY oxycodone 5 mg PO Q8H PRN pen needle, diabetic As directed pen needle, diabetic (UltiCare Pen Needle) As directed pramipexole 1.5 mg PO BEDTIME pravastatin 40 mg PO BEDTIME sennosides 8.6 mg PO BEDTIME testosterone (AndroGel) 3 pumps transdermal DAILY 28 days tramadol 50 mg PO TID PRN NS trazodone 200 mg PO BEDTIME PRN HPI HPI Comments History of Present Illness Details This is a 73-year-old male with chronic pain who presents for follow-up. States that he has been having neck pain. This is chronic. He was evaluated by Pain Management. He is also planned for cubital tunnel surgery. This is yet to be scheduled. He continues to take tramadol 50 mg t.i.d. which provides some help. [facility] Medical History Encounter for medication monitoring Depression Restless leg syndrome Peripheral neuropathy Personal history of nicotine dependence History of non-ST elevation myocardial infarction (NSTEMI) (~09/2018) History of cardiac arrest (~09/2018) Other and unspecified hyperlipidemia Essential hypertension Type 2 diabetes mellitus with unspecified complications Atherosclerotic cardiovascular disease Primary osteoarthritis, left hand Primary osteoarthritis, right hand Surgical History History of epidermal inclusion cyst excision (~07/2021) History of hand surgery (~03/2015) History of cataract surgery (~2017) History of cardiac catheterization (~10/2018) Family History Mother No problems noted. Mother No problems noted. 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 Review of Systems ENT Reports neck pain Musc Reports neck pain Physical Exam Vital Signs: Last Vital Signs Temp 97.3 F 08/02/23 10:10 Pulse 67 08/02/23 10:10 BP 124/58 L 08/02/23 10:10 Pulse Ox 95 08/02/23 10:10 BMI result Body Mass Index 30.8 Const General: cooperative, healthy appearing and comfortable Orientation/consciousness: patient oriented x3 Limitations: other limitations (motorized chair) HEENT Head: Yes normocephalic and Yes atraumatic Resp Effort & Inspection: normal respiratory effort and able to speak in complete sentences Neuro General: patient oriented x3 Results Reviewed Results Reviewed: Laboratory Tests MRI cervical spine [facility] 07/15/2022 impression: Cervical spinal canal developmental narrowing exacerbated by multilevel cervical spine degenerative disease with stenosis includes interval increased C3-C4 level stenosis with mild cervical spinal cord impingement and probable exiting left C4 nerve root impingement when compared to 2019; surgical consult may be considered [facility] labs 07/25/2019 CRP 0.08, sed rate 18, rheumatoid factor <15.0, CCP<16. Assessment & Plan Assessment & Plan (1) Cervical spondylosis: Code(s): M47.812 - Spondylosis without myelopathy or radiculopathy, cervical region Plan: This is a 73-year-old male with cervical degenerative disc disease who presents for follow-up. Continues to take tramadol 50 mg t.i.d. which helps his pain. Continue with tramadol as prescribed. Follow-up in 6 months Plan I spent 12 minutes reviewing patient's chart, evaluating patient, ordering diagnostic workup, counseling patient and documenting in the chart Coding Level of Care Code Est Pt Level 3 (01103) Diagnoses Cervical spondylosis M47.812
[2023-08-02 10:10] VITALS: BP 124/58; PULSE 67; TEMP 36.3; O2SAT 95; BMI 30.8
== END 2023-08-02 10:33 | disposition home or self-care (01) ==
PROVIDERS: PCP Nurse Practitioner Primary Care; Visit Provider Student in an Organized Health Care Education/Training Program
DX: M47.812 Spondylosis without myelopathy or radiculopathy, cervical region (principal)
CPT/HCPCS: 99213

== ENCOUNTER → 2023-08-02 09:53 | Outpatient (BNVA) | payer OTHER, SELFPAY | PROVIDERS: PCP Nurse Practitioner Primary Care; Visit Provider Student in an Organized Health Care Education/Training Program | DX: M47.812 Spondylosis without myelopathy or radiculopathy, cervical region (principal) | CPT/HCPCS: 99212 ==

== ENCOUNTER 2023-08-22 08:42 | Outpatient (REF) | payer OTHER, SELFPAY ==
[2023-08-22 11:20] LABS: B Type Natriuretic Peptide 33 pg/mL (<100)
[2023-08-22 11:22] LABS: Alanine Aminotransferase 24 U/L (0-40); Alkaline Phosphatase 100 U/L (39-117); Anion Gap 13 (12-20); Aspartate Amino Transferase 20 U/L (5-37); Bilirubin Total 0.8 mg/dL (0.0-1.0); Blood Urea Nitrogen 27 mg/dL (9-16); Calcium 9.4 mg/dL (8.4-10.2); Carbon Dioxide 33 mmol/L (22-29); Chloride 102 mmol/L (96-108); Cholesterol 127 mg/dL (<200); Estimated Glomerular Filt Rate 50; Glucose Random 98 mg/dL (60-115); HDL Cholesterol 39 mg/dL (>40); LDL Cholesterol Calculated 67 mg/dL (<100); Potassium 4.1 mmol/L (3.3-5.1); Sodium 144 mmol/L (135-145); Triglycerides 106 mg/dL (<150)
== END 2023-08-22 08:43 | disposition home or self-care (01) ==
LOC: HO.LAB 08:42
PROVIDERS: PCP Nurse Practitioner Primary Care; Visit Provider Nurse Practitioner Family
DX: Z01.810 Encounter for preprocedural cardiovascular examination (principal); I25.10 Atherosclerotic heart disease of native coronary artery without angina pectoris; R60.9 Edema, unspecified; I25.2 Old myocardial infarction; Z86.74 Personal history of sudden cardiac arrest
CPT/HCPCS: 36415; 80053; 80061; 83880; 93005; 99212

== ENCOUNTER 2023-08-22 08:42 | Outpatient (AMB) | payer OTHER, SELFPAY ==
[2023-08-22 09:00] VITALS: BP 114/62; PULSE 62; BMI 31.1
--- NOTE | 2023-08-22 09:00 | MHC.OFFVIS ---
Intake Vital Signs 08/22/23 09:00 Height 5 ft 6 in Weight 192 lb 10.944 oz BMI 31.1 BP 114/62 Blood Pressure Location Lt brachial Position Sitting Pulse 62 Pulse Source Pulse Oximeter Intake Visit Reasons: 3 mth fu Ventilation Equipment Tender Required: Yes Ventilation Equipment Tender Language: [employer] Caser Name: tara baldwin [id number] Allergies No Known Allergies [No Known Allergies*] Allergy (Verified 08/22/23 09:07) Medication List - Last Reconciled 08/22/23 by ISH Hussein acetaminophen (Tylenol Extra Strength) 500 mg PO Q6H PRN alcohol swabs 0 pad topical amlodipine 5 mg PO QAM arm brace (Wrist Brace Large) As directed aspirin (Adult Low Dose Aspirin) 81 mg PO DAILY bisacodyl (Dulcolax (bisacodyl)) 10 mg (2 x 5 mg) PO ONCE 1 day blood sugar diagnostic As directed calcitriol 0.25 mcg PO cilostazol 100 mg PO BID cyclobenzaprine 10 mg PO TID PRN docusate sodium (Colace) 100 mg PO BEDTIME empagliflozin (Jardiance) 10 mg PO DAILY ergocalciferol (vitamin D2) 1,250 mcg PO QWEEK ferrous sulfate 325 mg PO BID furosemide 40 mg PO DAILY gabapentin 600 mg PO BEDTIME hydrochlorothiazide 12.5 mg PO DAILY meclizine 12.5 mg PO TID PRN meloxicam 7.5 mg PO DAILY oxycodone 5 mg PO Q8H PRN pen needle, diabetic As directed pen needle, diabetic (UltiCare Pen Needle) As directed pramipexole 1.5 mg PO BEDTIME pravastatin 40 mg PO BEDTIME sennosides 8.6 mg PO BEDTIME testosterone (AndroGel) 3 pumps transdermal DAILY 28 days tramadol 50 mg PO TID PRN NS trazodone 200 mg PO BEDTIME PRN HPI 3 mth fu HPI Details Albert is a 73-year-old male with past medical history of hypertension, hyperlipidemia, diabetes, PE a arrest following anesthesia induction 2017 resulting in NSTEMI. Cardiac catheterization to follow showed nonobstructive coronary artery disease. He recently underwent a in echocardiogram and nuclear stress test and presents for follow-up. Today he reports he feels well with no chest discomfort, shortness of breath, palpitations, presyncope, syncope, PND, orthopnea. He is showing me leg edema that he says has been present for the last 2 weeks. He will need carpal tunnel surgery when cleared by Cardiology. Taking all meds as directed. [facility], [facility] Medical History (Updated 08/22/23 @ 09:55 by ALICIA HusseinC) Encounter for medication monitoring Depression Restless leg syndrome Peripheral neuropathy Personal history of nicotine dependence History of non-ST elevation myocardial infarction (NSTEMI) (~09/2018) History of cardiac arrest (~09/2018) Other and unspecified hyperlipidemia Essential hypertension Type 2 diabetes mellitus with unspecified complications Atherosclerotic cardiovascular disease Primary osteoarthritis, left hand Primary osteoarthritis, right hand Surgical History History of epidermal inclusion cyst excision (~07/2021) History of hand surgery (~03/2015) History of cataract surgery (~2017) History of cardiac catheterization (~10/2018) Family History Mother No problems noted. Mother No problems noted. 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 Review of Systems Const All systems reviewed & are unremarkable except as noted in HPI and below ENT Denies dizziness Card Denies chest pain, Denies chest pain at rest, Denies chest pain with activity, Denies rapid heart rate, Denies pedal edema, Denies edema, Denies leg edema, Denies lightheadedness, Denies palpitations, Denies dyspnea, Denies dyspnea on exertion and Denies orthopnea Resp Denies cough, Denies dyspnea and Denies dyspnea on exertion GI Denies hematochezia and Denies change in stool character Musc Details: swelling in legs for the last 2 weeks Denies abnormal gait, Denies limited range of motion, Denies muscle cramps, Denies muscle weakness, Denies numbness, Denies radiating pain into limb, Denies stiffness and Denies tingling Neuro Denies abnormal gait, Denies dizziness, Denies numbness and Denies tingling Endo Denies palpitations Physical Exam Vital Signs: Last Vital Signs Pulse 62 08/22/23 09:00 BP 114/62 08/22/23 09:00 BMI result Body Mass Index 31.1 Const General: cooperative, healthy appearing, comfortable and no acute distress Orientation/consciousness: patient oriented x3 Neck Neck: Yes normal visual inspection Resp Effort & Inspection: normal respiratory effort Auscultation: clear to auscultation bilaterally, no rales, no rhonchi and no wheezes Cardio Jugular venous distension: no JVD Rate: regular rate Rhythm: regular rhythm Heart sounds: S1 normal heart sound present, S2 normal heart sound present, no murmurs and no rubs Neuro General: patient oriented x3 Extrem Other: tight pitting edema bilateral legs from feet to mid posterior thighs Psych Appearance: grossly normal Mental Status: mental status grossly normal Speech and movement: Normal speech and movement present Office Procedures EKG Details: Today, read by me, SR with 1st degree avb, PACs one PVC, rate 69, QTc 422ms [id number], Complete Assessment & Plan Assessment & Plan (1) Atherosclerotic cardiovascular disease: Code(s): I25.10 - Atherosclerotic heart disease of kashia coronary artery without angina pectoris Plan: History of NSTEMI following PE a arrest after anesthesia induction 2018. Cardiac catheterization showed mid LAD 60% stenosis, mid RCA 65-70% stenosis, IFR negative. He has been managed medically since that time. He has had no recurrent cardiac arrest episodes. He reports needing carpal tunnel surgery. He did undergo an echocardiogram on 06/23/2023 showing EF 54%, no valve abnormalities, ascending aorta 4.3 cm. A nuclear stress test was done on 06/22/2023 showing normal myocardial perfusion imaging. Continue on aspirin indefinitely, continue pravastatin with ideal LDL goal less than 70. Last cholesterol in our system was 08/18/2021, LDL 63. He is not on any rate slowing agents at this time. (2) Edema: Code(s): R60.9 - Edema, unspecified Plan: Patient reports leg edema for the last 2 weeks. On exam he is noted to have tight pitting edema of lower extremities all the way up to his mid posterior thigh bilaterally. His lungs are clear on examination today. He denies shortness of breath. Recent echo with normal EF, grade 1 diastolic dysfunction. He is on Lasix 40 mg daily and reports compliance. EKG done today showing sinus rhythm with first-degree AV block, PACs and 1 PVC, rate 69. Will have him check labs today including BMP, and BNP. He may need increased dose of Lasix. Reviewed low-salt diet, leg elevation. (3) History of cardiac arrest: Onset Date: ~09/2018 Comment: (hypoxia leading to PEA and NSTEMI - after elective lumbar injection- 09/28/18) Code(s): Z86.74 - Personal history of sudden cardiac arrest (4) History of non-ST elevation myocardial infarction (NSTEMI): Onset Date: ~09/2018 Comment: (from coronary hypoperfusion during cardiac arrest after elective lumbar injection 09/28/18) Code(s): I25.2 - Old myocardial infarction (5) Preoperative cardiovascular examination: Code(s): Z01.810 - Encounter for preprocedural cardiovascular examination Plan: Preop for carpal tunnel surgery, no date yet. History of PE a arrest following anesthesia induction in 2018. Cardiac testing as above. He has no nonobstructive coronary artery disease with recent normal nuclear stress test. On exam today he has new lower extremity edema. 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 Orders: Orders B Type Natriuretic Peptide Today R60.9 - Edema, unspecified Lipid Panel Today I25.10 - Atherosclerotic heart disease of kashia coronary artery without angina pectoris Comprehensive Met. Panel Today R60.9 - Edema, unspecified Coding Level of Care Code Est Pt Level 4 (51147) Diagnoses Atherosclerotic cardiovascular disease I25.10 Edema R60.9 History of cardiac arrest Z86.74 History of non-ST elevation myocardial infarction (NSTEMI) I25.2 Preoperative cardiovascular examination Z01.810 CPT Codes EKG - CPT: 94991-[id number], Complete ([id number]) Time Spent (min) 28
== END 2023-08-22 09:46 | disposition home or self-care (01) ==
PROVIDERS: PCP Nurse Practitioner Primary Care; Visit Provider Nurse Practitioner Family
DX: I25.10 Atherosclerotic heart disease of native coronary artery without angina pectoris (principal); R60.9 Edema, unspecified; Z86.74 Personal history of sudden cardiac arrest; I25.2 Old myocardial infarction; Z01.810 Encounter for preprocedural cardiovascular examination
CPT/HCPCS: 93010; 99214

== ENCOUNTER 2023-09-15 14:38 | Outpatient (AMB) | payer OTHER, SELFPAY ==
[2023-09-15 14:59] VITALS: BP 124/72; PULSE 66; RESP 15; TEMP 36.2; O2SAT 95
--- NOTE | 2023-09-15 14:59 | MHC.OFFVIS ---
Intake Vital Signs 09/15/23 14:59 Height 5 ft 6 in BP 124/72 Blood Pressure Location Rt brachial Position Sitting Respiration 15 Pulse 66 Pulse Source Pulse Oximeter Temp 97.2 F Temp Source Tympanic Pulse Oximetry (%) 95 Oxygen Delivery Method Room Air Intake Visit Reasons: Cortisone injection R knee ? Page Makeup System Operator Required: No Allergies No Known Allergies [No Known Allergies*] Allergy (Verified 09/15/23 15:04) Medication List - Last Reconciled 09/15/23 by Les Ceron MD acetaminophen (Tylenol Extra Strength) 500 mg PO Q6H PRN alcohol swabs 0 pad topical amlodipine 5 mg PO QAM arm brace (Wrist Brace Large) As directed aspirin (Adult Low Dose Aspirin) 81 mg PO DAILY bisacodyl (Dulcolax (bisacodyl)) 10 mg (2 x 5 mg) PO ONCE 1 day blood sugar diagnostic As directed calcitriol 0.25 mcg PO cilostazol 100 mg PO BID cyclobenzaprine 10 mg PO TID PRN docusate sodium (Colace) 100 mg PO BEDTIME empagliflozin (Jardiance) 10 mg PO DAILY ergocalciferol (vitamin D2) 1,250 mcg PO QWEEK ferrous sulfate 325 mg PO BID furosemide 40 mg PO DAILY gabapentin 600 mg PO BEDTIME hydrochlorothiazide 12.5 mg PO DAILY meclizine 12.5 mg PO TID PRN meloxicam 7.5 mg PO DAILY oxycodone 5 mg PO Q8H PRN pen needle, diabetic As directed pen needle, diabetic (UltiCare Pen Needle) As directed pramipexole 1.5 mg PO BEDTIME pravastatin 40 mg PO BEDTIME sennosides 8.6 mg PO BEDTIME testosterone (AndroGel) 3 pumps transdermal DAILY 28 days tramadol 50 mg PO TID PRN NS trazodone 200 mg PO BEDTIME PRN HPI HPI Comments History of Present Illness Details 73-year-old male with chronic pain presents for right knee pain. Requesting an injection. His blood sugar today was 130 in the morning. 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 He states that he has chronic right knee pain. He received a steroid injection in his right knee last year by Orthopedics which was helpful. States that he fell a few weeks ago on his left knee and he hurt his left elbow and forearm as he was covering his face. Since then he has been having left knee pain. Initial history: This is a 73-year-old male with chronic pain who presents for follow-up. States that he has been having neck pain. This is chronic. He was evaluated by Pain Management. He is also planned for cubital tunnel surgery. This is yet to be scheduled. He continues to take tramadol 50 mg t.i.d. which provides some help. [facility] Medical History Encounter for medication monitoring Depression Restless leg syndrome Peripheral neuropathy Personal history of nicotine dependence History of non-ST elevation myocardial infarction (NSTEMI) (~09/2018) History of cardiac arrest (~09/2018) Other and unspecified hyperlipidemia Essential hypertension Type 2 diabetes mellitus with unspecified complications Atherosclerotic cardiovascular disease Primary osteoarthritis, left hand Primary osteoarthritis, right hand Surgical History History of epidermal inclusion cyst excision (~07/2021) History of hand surgery (~03/2015) History of cataract surgery (~2017) History of cardiac catheterization (~10/2018) Family History Mother No problems noted. Mother No problems noted. 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 Review of Systems [facility] Reports arthralgias Physical Exam Vital Signs: Last Vital Signs Temp 97.2 F 09/15/23 14:59 Pulse 66 09/15/23 14:59 Resp 15 09/15/23 14:59 BP 124/72 09/15/23 14:59 Pulse Ox 95 09/15/23 14:59 Oxygen Delivery Method Room Air 09/15/23 14:59 Const General: cooperative, healthy appearing and comfortable Orientation/consciousness: patient oriented x3 Limitations: other limitations (motorized chair) HEENT Head: Yes normocephalic and Yes atraumatic Resp Effort & Inspection: normal respiratory effort and able to speak in complete sentences Skin Other: Large superficial bruise on left forearm Neuro General: patient oriented x3 Extrem Other: Bilateral knee pain with flexion and extension Office Procedures Joint Injection/Drain Joint Injection/Drain Primary Site: right knee Prep: site was prepped using sterile technique and ethochloride spray was applied Injected: 40 mg of, Kenalog and other (2 mL of 1% lidocaine) Approach Used: medial parapatellar Procedure: The patient tolerated the procedure well Coding Details: With the patient's consent the right knee was prepped with ChloraPrep and alcohol. The skin was anesthetized with 2 cc of 1% lidocaine. The knee was then injected with 40 mg of triamcinolone and 2 cc of I % lidocaine. The patient tolerated the procedure with no immediate adverse effects. - Large joint Procedure code (CPT) selection complete Results Reviewed Results Reviewed: Laboratory Tests MRI cervical spine [facility] 07/15/2022 impression: Cervical spinal canal developmental narrowing exacerbated by multilevel cervical spine degenerative disease with stenosis includes interval increased C3-C4 level stenosis with mild cervical spinal cord impingement and probable exiting left C4 nerve root impingement when compared to 2019; surgical consult may be considered [facility] labs 07/25/2019 CRP 0.08, sed rate 18, rheumatoid factor <15.0, CCP<16. Assessment & Plan Assessment & Plan (1) Osteoarthritis of right knee: Code(s): M17.11 - Unilateral primary osteoarthritis, right knee Qualifiers: Osteoarthritis type: primary Qualified Code(s): M17.11 - Unilateral primary osteoarthritis, right knee Plan: 73-year-old male with knee osteoarthritis presents evaluation of right knee pain. Likely due to osteoarthritis. He is requesting a steroid injection. His blood sugar in the morning today was 130. With patient's consent, right knee was injected with Kenalog today. Advised patient to check his blood sugar frequently over the next 3-4 days and let us or his PCP know if his blood sugar is persistently above 200 States that he fell recently on his left knee and left elbow. Since then has been having left knee pain, will check bilateral knee x-rays Plan I spent 15 minutes reviewing patient's chart, evaluating patient, ordering diagnostic workup, counseling patient and documenting in the chart Orders: Orders XR knee LT 3V Today M17.0 - Bilateral primary osteoarthritis of knee XR knee standing BI Today M17.0 - Bilateral primary osteoarthritis of knee AMB Joint Injection/Aspiration Today M17.11 - Unilateral primary osteoarthritis, right knee XR knee RT 3V Today M17.0 - Bilateral primary osteoarthritis of knee Coding Level of Care Code Est Pt Level 3 (24153) Diagnoses Primary osteoarthritis of right knee M17.11 Osteoarthritis type: primary CPT Codes Coding - 13418 Large joint: 82832 - Large joint ([id number])
== END 2023-09-15 15:35 | disposition home or self-care (01) ==
PROVIDERS: PCP Nurse Practitioner Primary Care; Visit Provider Student in an Organized Health Care Education/Training Program
DX: M17.11 Unilateral primary osteoarthritis, right knee (principal)
CPT/HCPCS: 20610; 99213

== ENCOUNTER → 2023-09-15 14:38 | Outpatient (BNVA) | payer OTHER, SELFPAY | PROVIDERS: PCP Nurse Practitioner Primary Care; Visit Provider Student in an Organized Health Care Education/Training Program | DX: M17.11 Unilateral primary osteoarthritis, right knee (principal) | CPT/HCPCS: 20610; 99212 ==

== ENCOUNTER 2024-01-30 12:19 | Outpatient (REF) | payer OTHER, SELFPAY ==
[2024-01-30 13:46] LABS: Mean Corpuscular HGB Conc 34.1 g/dl (31.0-36.0); Mean Corpuscular Hemoglobin 33.9 pg (27.0-33.0); Mean Corpuscular Volume 99.5 fL (80.0-98.0); Mean Platelet Volume 9.5 fL (9.4-12.4); Platelet Count 248 X10*3/uL (160-400); Red Blood Count 4.42 X10*6/uL (4.60-5.80); Red Cell Distribution Width 14.4 % (11.0-16.0); White Blood Count 8.5 X10*3/uL (4.8-10.8)
[2024-01-30 14:29] LABS: Prostate Specific Antigen 0.64 ng/mL (<0.05-4.0)
[2024-02-05 18:03] LABS: Testosterone, Total 221 ng/dL (250-1100)
== END 2024-01-30 12:20 | disposition home or self-care (01) ==
LOC: HO.LAB 12:19
PROVIDERS: PCP Nurse Practitioner Primary Care; Visit Provider Urology
DX: E11.69 Type 2 diabetes mellitus with other specified complication (principal); N52.1 Erectile dysfunction due to diseases classified elsewhere; Z12.5 Encounter for screening for malignant neoplasm of prostate
CPT/HCPCS: 36415; 84153; 84403; 85027

== ENCOUNTER 2024-02-19 10:49 | Outpatient (REF) | payer OTHER, SELFPAY ==
--- NOTE | ~2024-02-19 | XR_ITS ---
EXAMINATION: XR CHEST CLINICAL INFORMATION: Cough for 4 weeks. COMPARISON: April 03, 2023 and dating back to April 13, 2021. Degenerative changes in the thoracic spine. TECHNIQUE: 2 views of the chest were obtained. FINDINGS: There is no gross pneumothorax. Lung volumes are low. Heart size is normal. Redemonstration of right basilar opacities, characteristic of subsegmental atelectasis/scar. No gross pleural effusion. XR/XR chest 2V IMPRESSION: Redemonstration of right basilar opacities, characteristic of subsegmental atelectasis/scar.
== END 2024-02-19 10:50 | disposition home or self-care (01) ==
LOC: HO.XRAY 10:49
PROVIDERS: Absent Provider Nurse Practitioner Primary Care; PCP Nurse Practitioner Primary Care; Visit Provider Student in an Organized Health Care Education/Training Program
DX: R05.1 Acute cough (principal)
CPT/HCPCS: 71046

== ENCOUNTER 2024-02-22 11:11 | Outpatient (AMB) | payer OTHER, SELFPAY ==
--- NOTE | 2024-02-22 11:34 | MHC.OFFVIS ---
Intake Visit Reasons: 6M PSA(set) Intake Note: Patient is Present for Follow Up Urology Medication: Testosterone Antibiotic Allergies:None Blood Thinners: Aspirin Allergies No Known Allergies [No Known Allergies*] Allergy (Verified 09/15/23 15:04) HPI Comments Details: Albert is a pleasant male. He is a patient of Dr. Warren. He is seen for the following urologic conditions - hypogonadism - erectile dysfunction Faroese translation provided by qualified medical insurance collector Should apply 1 pump to each arm for total of 3 pumps daily When applying will need to massage into skin until dry Six-month follow-up labs Hypogonadism Ongoing management Current therapy - AndroGel 3 pumps daily Laboratories 07/28 T 400, PSA 0.6, 05/29 T195 PSA 2.5, 08/29 T340 PSA 1.2, 11/30 T 500 P 1.4 - 01/28 T 172 P 0.83, 06/30 T 296 0.5 40, 12/01 179 1.0, 04/30 271 0.65, 01/30 222 0.6 H 44 Continue with topical therapy Repeat lab work in 6 months Erectile dysfunction Multifactorial History of diabetes and vascular disease with prior smoking history [facility] Medical History Encounter for medication monitoring Depression Restless leg syndrome Peripheral neuropathy Personal history of nicotine dependence History of non-ST elevation myocardial infarction (NSTEMI) (~09/2018) History of cardiac arrest (~09/2018) Other and unspecified hyperlipidemia Essential hypertension Type 2 diabetes mellitus with unspecified complications Atherosclerotic cardiovascular disease Primary osteoarthritis, left hand Primary osteoarthritis, right hand Surgical History History of epidermal inclusion cyst excision (~07/2021) History of hand surgery (~03/2015) History of cataract surgery (~2017) History of cardiac catheterization (~10/2018) Family History Mother No problems noted. Mother No problems noted. 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 Review of Systems Const Denies chills and Denies fever(s) Card Reports no additional complaints and Denies syncope Resp Denies cough GI Denies abdominal pain and Denies heartburn Reports as per HPI and Denies change in libido Neuro Denies syncope Psych Denies change in libido Endo Denies change in libido Physical Exam Const General: cooperative, healthy appearing, comfortable and no acute distress Orientation/consciousness: patient oriented x3 HEENT Face and sinus: Yes normal facial exam Mouth: moist mucous membranes Neck Neck: Yes normal visual inspection, Yes full ROM and Yes trachea midline Chest Chest palpation & inspection: normal inspection of the chest Resp Effort & Inspection: normal respiratory effort, able to speak in complete sentences and no respiratory distress GI Inspection: Yes normal to inspection Back/Spine/Pelvis Cervical Spine: normal cervical lordosis Thoracic/Lumbar Spine: thoracic and lumbar spine normal to inspection Skin General skin exam: no rashes or lesions noted Neuro General: patient oriented x3, gait normal, tone normal and moves all extremities Extrem General: Yes normal to inspection and Yes capillary refill normal Assessment & Plan Assessment & Plan (1) Hypogonadism in male: Code(s): E29.1 - Testicular hypofunction Category: Medical Plan Six-month follow-up lab work Orders: Orders Prostate Specific Antigen 6 Months E29.1 - Testicular hypofunction Testosterone, Total 6 Months E29.1 - Testicular hypofunction Complete Blood Count no Diff 6 Months E29.1 - Testicular hypofunction Patient Instructions: Imaging studies, laboratory and physical exam results were discussed and reviewed in detail. No major barriers to patient understanding were identified. An opportunity to ask questions regarding the treatment plan was provided. All questions were answered. The patient expressed understanding and agreement with the above treatment plan. The patient is aware they should contact our office by phone for worsening of their current condition or the appearance of new urologic symptoms. Compliance is encouraged with any medications and followup testing that is ordered. It is a privilege to participate in the urologic care of your patient. If you have any questions or concerns regarding treatment for the above conditions, or other urologic issues, please do not hesitate to contact me. The office telephone contact is [phone]. This note is constructed using voice recognition software. While every effort has been made to ensure accuracy prototype fabricator errors may have been included. Yours sincerely, Dr Mango Ragland MD, [facility] - Urology Providers of Expert, Compassionate Care for the Genitourinary System Coding Level of Care Code Est Pt Level 3 (45778) Diagnoses Hypogonadism in male E29.1
== END 2024-02-22 11:59 | disposition home or self-care (01) ==
LOC: HO.HUSH 11:11
PROVIDERS: PCP Nurse Practitioner Primary Care; Visit Provider Urology
DX: E29.1 Testicular hypofunction (principal)
CPT/HCPCS: 99213

== ENCOUNTER → 2024-02-22 11:11 | Outpatient (BNVA) | payer OTHER, SELFPAY | PROVIDERS: PCP Nurse Practitioner Primary Care; Visit Provider Urology | DX: E29.1 Testicular hypofunction (principal); N52.9 Male erectile dysfunction, unspecified | CPT/HCPCS: 99212 ==

== ENCOUNTER 2024-04-05 13:50 | Outpatient (REF) | payer OTHER, SELFPAY ==
[2024-04-05 15:25] LABS: Influenza A PCR NEGATIVE (Negative); Influenza B PCR NEGATIVE (Negative); Resp Syncy Virus RNA Qual PCR NEGATIVE (Negative); SARS COV2 PCR INHOUSE NEGATIVE (Negative)
== END 2024-04-05 13:51 | disposition home or self-care (01) ==
LOC: HO.HHCLNP 13:50
PROVIDERS: Visit Provider Emergency Medicine
DX: R09.02 Hypoxemia (principal); R09.89 Other specified symptoms and signs involving the circulatory and respiratory systems
CPT/HCPCS: 0241U

== ENCOUNTER 2024-04-06 10:41 | Inpatient (IN) | payer OTHER, SELFPAY ==
[2024-04-06] VITALS (10 sets, daily range): BP systolic 97–114; BP diastolic 55–80; PULSE 72–119; RESP 14–19; TEMP 36.1–37.1; O2SAT 87–96; BMI 27.4
--- NOTE | ~2024-04-06 | US_ITS ---
EXAMINATION: US VENOUS ULTRASOUND WITH DOPPLER LOWER EXTREMITY, BILATERAL CLINICAL INFORMATION: Pain and swelling COMPARISON: 2020 TECHNIQUE: Ultrasound of the deep veins is performed from the hip to the calf with compression sonography and color and pulse Doppler assessment. Spectral analysis with color-flow imaging is performed. FINDINGS: RIGHT: There is normal venous compression and respiratory variation and augmented flow. The visualized common femoral vein, superficial femoral vein, profunda femoral vein, popliteal vein, and the trifurcation region shows no evidence of deep venous thrombosis. There is no significant popliteal fossa cyst. LEFT: There is normal venous compression and respiratory variation and augmented flow. The visualized common femoral vein, superficial femoral vein, profunda femoral vein, popliteal vein, and the trifurcation region shows no evidence of deep venous thrombosis. There is no significant popliteal fossa cyst. If the patient's symptoms persist, followup ultrasound in 5 days 7 days might be of value to exclude proximal propagation from a non-visualized calf vein. Included images bilateral inguinal lymph nodes with normal thin cortex and echogenic fatty hilum. US/US venous duplex LE BI IMPRESSION: No DVT demonstrated in the bilateral lower extremities.
--- NOTE | ~2024-04-06 | CT_ITS ---
EXAMINATION: CT CHEST WITHOUT CONTRAST CLINICAL INFORMATION: Hypoxia. Evaluate for pneumonia COMPARISON: Chest radiograph 04/06/2024 TECHNIQUE: Multidetector volumetric CT imaging of the chest was done. Axial MIP volume rendering provided. Sagittal and coronal reformatted images were obtained. This CT examination was performed using dose optimization techniques as appropriate, variously including the following: *Automated exposure control *Adjustment of mA and/or kV according to patient size (this includes techniques or standardized protocols for targeted exams where dose is matched to indication/reason for exam; i.e. extremities or head) *Use of iterative reconstruction technique DLP: 378 mGy-cm FINDINGS: LUNGS: Bilateral subsegmental atelectasis. Right middle lobe consolidation. No pleural effusion. The central airways are clear. MEDIASTINUM: The ascending aorta measures 4.2 cm in diameter. CORONARY ARTERY CALCIFICATION: Moderate AXILLA: No lymphadenopathy. UPPER ABDOMEN: Unremarkable. OSSEOUS STRUCTURES: Unremarkable. CT/CT chest wo IV con IMPRESSION: 1. Right middle lobe consolidation, favored to represent atelectasis. 2. Streaky opacities in the bilateral lower lobes most consistent with subsegmental atelectasis. 3. The ascending aorta measures 4.2 cm in diameter. Fleischner guidelines were followed.
--- NOTE | ~2024-04-06 | XR_ITS ---
EXAMINATION: XR chest 2V CLINICAL INFORMATION: Reason for Exam SOB COMPARISON: Prior chest x-ray 02/19/2024 TECHNIQUE: XR chest 2V, 2 Views Lungs and [place] Lu[place]: There is an infiltrate/atelectasis at right lung base unchanged. Pleura: Normal. Costophrenic angles are sharp. No pneumothorax. Heart: The heart is normal in size. Mediastinum: The mediastinum is within normal limits.. Bones: Skeletal structures included are normal for patient's age. XR/XR chest 2V IMPRESSION: 1. Redemonstration of infiltrate/atelectasis at right lung base unchanged. 2. No pleural effusion.
--- NOTE | 2024-04-06 10:57 | ECG_ITS ---
Test Reason : SOB Blood Pressure : / mmHG Vent. Rate : 120 BPM Atrial Rate : 083 BPM P-R Int : 204 ms QRS Dur : 068 ms QT Int : 386 ms P-R-T Axes : 047 032 007 degrees QTc Int : 545 ms Normal sinus rhythm with Premature ventricular complexes and burst of SVT Nonspecific ST and T wave abnormality Prolonged QT Abnormal ECG When compared to the previous EKG of Cardiac arrhythmias as described are new Referred By: Sariah Baird Electronically Signed By:RIVERA MONROE MD
--- NOTE | 2024-04-06 11:14 | ED_ITS ---
HPI - URI/Sore Throat General Chief Complaint: Arrhythmia/Palpitations Stated Complaint: + covid home test, cough, sob Time Seen by Provider: 04/06/24 11:07 Source: patient and deaf interpreter Mode of arrival: ambulatory Limitations: language barrier History of Present Illness ED Provider: Sariah Baird APRN HPI Narrative: This is a 74-year-old male who has history of arthritis, congestive heart failure on 20 of Lasix daily, tobacco smoker, hypertension, diabetes who presents the ER with complaints of productive cough with green sputum for the last 1 week. Patient went to a walk-in clinic and he was referred here for further evaluation. On the clinic it does note the patient at that time was complaining of some shortness of breath and chills and fever and diarrhea but the patient is currently denying this. Does report that when he moves around he does get short of breath however he is essentially wheelchair-bound but does walk very short distances. He denies any chest pain, palpitations. He does have bilateral lower leg swelling which she believes is worsened baseline. He has been taking his Lasix. He does not weigh himself daily. He is unsure of weight gain. He denies orthopnea. He tells me that he did have a COVID test at the clinic which was positive but he does not believe that he has COVID. Related Data Home Medications ?Medication ?Instructions ?Recorded ?Confirmed acetaminophen 500 mg tablet 500 mg PO Q6H PRN 08/12/20 08/22/23 (Tylenol Extra Strength) aspirin 81 mg tablet,delayed 81 mg PO DAILY 08/12/20 08/22/23 release (Adult Low Dose Aspirin) ferrous sulfate 325 mg (65 mg 325 mg PO BID 08/12/20 08/22/23 iron) tablet hydrochlorothiazide 12.5 mg tablet 12.5 mg PO DAILY 08/12/20 08/22/23 trazodone 100 mg tablet 200 mg PO BEDTIME PRN 08/12/20 08/22/23 amlodipine 5 mg tablet 5 mg PO QAM 11/19/20 08/22/23 gabapentin 600 mg tablet 600 mg PO BEDTIME 11/19/20 08/22/23 pravastatin 40 mg tablet 40 mg PO BEDTIME 11/19/20 08/22/23 alcohol swabs 0 pad topical 03/09/21 08/22/23 blood sugar diagnostic #10 ea 03/09/21 08/22/23 ergocalciferol (vitamin D2) 1,250 1,250 mcg PO QWEEK 03/09/21 08/22/23 mcg (50,000 unit) capsule pen needle, diabetic 31 gauge x #50 ea 03/09/21 08/22/2312/22 pen needle, diabetic 31 gauge x #1,200 ea 12/17/21 08/22/2302/21 (UltiCare Pen Needle) furosemide 20 mg tablet 40 mg PO DAILY 05/24/22 08/22/23 empagliflozin 10 mg tablet 10 mg PO DAILY 12/23/22 08/22/23 (Jardiance) calcitriol 0.5 mcg capsule 0.25 mcg PO 05/18/23 08/22/23 meclizine 12.5 mg tablet 12.5 mg PO TID PRN 05/18/23 08/22/23 pramipexole 1 mg tablet 1.5 mg PO BEDTIME 05/18/23 08/22/23 Previous Rx's ?Medication ?Instructions ?Recorded arm brace (Wrist Brace Large) #2 ea 08/12/20 docusate sodium 100 mg capsule 100 mg PO BEDTIME #90 caps 09/20/22 (Colace) sennosides 8.6 mg tablet 8.6 mg PO BEDTIME constipation #90 09/20/22 tabs cyclobenzaprine 10 mg tablet 10 mg PO TID PRN pain #14 tabs 04/03/23 meloxicam 7.5 mg tablet 7.5 mg PO DAILY #5 tabs 04/03/23 oxycodone 5 mg tablet 5 mg PO Q8H PRN pain #7 tabs 04/03/23 bisacodyl 5 mg tablet,delayed 10 mg (2 x 5 mg) PO ONCE 1 day #2 04/17/23 release (Dulcolax (bisacodyl)) tabs cilostazol 100 mg tablet 100 mg PO BID 90 days #180 tabs 09/26/23 testosterone (AndroGel) 3 pump transdermal DAILY 28 days 02/22/24 #150 grams tramadol 50 mg tablet 50 mg PO TID PRN pain #90 tabs 04/01/24 Allergies Allergy/AdvReac Type Severity Reaction Status Date / Time No Known Allergies Allergy Verified 04/06/24 10:53 [No Known Allergies*] Review of Systems 2 Review of Systems: Yes all other systems are reviewed and are negative Constitutional: Constitutional: Reports no additional constitutional complaints, Denies body ache(s), Denies chills, Denies fever(s), Denies headache(s) and Denies weakness Eyes: Eyes: Reports no additional eye complaints and Denies change in vision ENT: Reports system reviewed and no additional complaints, except as documented, Denies dizziness, Denies headache(s), Denies nasal congestion, Denies nasal discharge and Denies neck pain Cardiovascular: Cardiovascular: Reports no additional cardiovascular complaints, Denies chest pain, Denies leg edema, Denies dyspnea and Reports dyspnea on exertion Respiratory: Respiratory: Reports no additional respiratory complaints, Reports cough, Denies dyspnea and Reports dyspnea on exertion Gastrointestinal: Gastrointestinal: Reports no additional gastrointestinal complaints, Denies abdominal pain, Denies diarrhea, Denies nausea and Denies vomiting Genitourinary: Genitourinary: Denies urinary incontinence Musculoskeletal: Musculoskeletal: Reports no additional musculoskeletal complaints, Denies back pain, Denies arthralgias, Denies joint swelling, Denies neck pain, Denies numbness and Denies tingling Integumentary/Breasts: Skin/Breast: Reports system reviewed and no additional complaints, except as docu and Denies rash Neurologic: Reports system reviewed and no additional complaints, except as documented, Denies Abnormal speech present, Denies dizziness, Denies headache(s), Denies numbness, Denies tingling and Denies weakness PMFSH Past Medical History Attestation statement: The following information was validated with the patient. 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 Mother No problems noted. 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 Physical Exam 2 Vital Signs: Vital Signs: Last Vital Signs Temp 97.2 F 04/06/24 10:52 Pulse 74 04/06/24 14:04 Resp 14 04/06/24 14:04 BP 114/80 04/06/24 14:04 Pulse Ox 96 04/06/24 14:04 O2 Del Method Nasal Cannula 04/06/24 14:04 O2 Flow Rate 2 04/06/24 14:04 BMI result Body Mass Index 27.4 Const: General: cooperative, healthy appearing, comfortable and no acute distress Orientation/consciousness: patient oriented x3 Limitations: no limitations HEENT: Head: Yes normal to inspection Ears: hearing grossly normal bilaterally General nose exam: Normal external nose present Face and sinus: Yes normal facial exam Mouth: Normal oral and palatal mucosa present Throat: Yes posterior oropharynx normal Eyes: General: appearance normal, both eyes and all related structures P upils: Equal, round and reactive pupils present Neck: Neck: Yes normal visual inspection Chest: Chest palpation & inspection: normal inspection of the chest Resp: Effort & Inspection: normal respiratory effort Auscultation: rhonchi Cardio: Rate: regular rate Rhythm: regular rhythm Peripheral pulses: P eripheral pulses 2+ throughout GI: Inspection: Yes normal to inspection Palpation (GI): Soft to palpation and nontender Auscultation: normal bowel sounds Back/Spine/Pelvis: Thoracic/Lumbar Spine: thoracic and lumbar spine normal to inspection Skin: General skin exam: no rashes or lesions noted Neuro: General: patient oriented x3, no focal motor deficits and normal sensation to monofilament Cranial nerves: Yes Equal, round and reactive pupils present Cognition (Neuro): normal cognition Speech: No Abnormal speech present Gait exam (Neuro): Normal gait present Motor exam (neuro): 5/5 motor strength present throughout Extrem: Other: Normal distal pulses. 2+ pitting edema bilateral, mild bilateral calf tenderness on palpation General: Yes edema Course Course Course Narrative: 1245-x-ray shows right lower lobe infiltrate. Patient had an infiltrate on x- ray 02/19/2024 but he tells me he did not take any outpatient antibiotics for this. Therefore at this time infection is suspected. Antibiotics ordered. Labs show hypokalemia, hypomagnesemia. Patient received receiving both oral and IV supplements. He is labs also show a mild SUSHILA. He has received a total of 500 mL of normal saline. We are hydrating him cautiously as he has a history of fluid overload and appears to have bilateral lower leg swelling. Anticipate admission as the patient is hypoxic on room air at 87%. Medications Administered Discontinued Medications Generic Name Dose Route Start Last Admin Trade Name Freq PRN Reason Stop Dose Admin Sodium Chloride 250 mls @ 999 mls/hr 04/06/24 12:03 04/06/24 12:53 Ns IV 04/06/24 12:18 Infused .Q16M STA Infusion Potassium Chloride 10 meq in 100 mls @ 100 mls/hr 04/06/24 12:30 04/06/24 15:10 Potassium Chloride/H20 IV 04/06/24 14:29 Infused Q1H FARSHAD Infusion Magnesium Sulfate 2 gm in 50 mls @ 25 mls/hr 04/06/24 12:29 04/06/24 15:10 Magnesium Sulfate/H2o IV 04/06/24 14:28 Infused ONCE ONE Infusion Sodium Chloride 250 mls @ 999 mls/hr 04/06/24 12:32 04/06/24 14:09 Ns IV 04/06/24 12:47 Infused .Q16M STA Infusion Ceftriaxone Sodium 2 gm/ 50 mls @ 100 mls/hr 04/06/24 12:44 04/06/24 14:09 Sodium Chloride IV 04/06/24 13:13 Infused ONCE ONE Infusion Metoprolol Tartrate 5 mg 04/06/24 11:50 04/06/24 12:27 Metoprolol Tartrate 5 Mg/5 Ml Vial IVPUSH 04/06/24 11:51 Not Given ONCE ONE Protocol Potassium Chloride 60 meq 04/06/24 12:29 04/06/24 12:35 Potassium Chloride Er 20 Meq Tab.Er.Prt PO 04/06/24 12:30 60 meq ONCE ONE Administration Medical Decision Making Medical Decision Making [facility] Narrative: This is a 74-year-old male who has history of arthritis, congestive heart failure on 20 of Lasix daily, tobacco smoker, hypertension, diabetes who presents the ER with complaints of productive cough with green sputum for the last 1 week. Patient went to a walk-in clinic and he was referred here for further evaluation. On the clinic it does note the patient at that time was complaining of some shortness of breath and chills and fever and diarrhea but the patient is currently denying this. Does report that when he moves around he does get short of breath however he is essentially wheelchair-bound but does walk very short distances. He denies any chest pain, palpitations. He does have bilateral lower leg swelling which she believes is worsened baseline. He has been taking his Lasix. He does not weigh himself daily. He is unsure of weight gain. He denies orthopnea. He tells me that he did have a COVID test at the clinic which was positive but he does not believe that he has COVID. On exam patient has bilateral lower leg swelling. He has some mild tenderness to both calves. Does have some rhonchi noted. His heart rate is quite variable with rates from 90-140. Appears to be having some atrial tachycardia. Multiple EKGs done at the bedside. Room air saturation is 87%. Improved with supplemental oxygen. His. blood pressure is normotensive. He denies any symptoms of palpitations or chest pain during these tachycardic moments. Will need labs, EKG, chest x-ray, viral testing, venous ultrasound His EKG and rhythm strips were reviewed with Dr. Qunitero. We will give him 5 mg of IV Lopressor and reassess Differential Diagnosis Differential Diagnoses: The differential diagnosis associated with the presentation includes Atrial tachycardia Viral syndrome Congestive heart Pneumonia Less likely ACS, DVT, PE Admission/Observation Consideration of admission/observation: Escalation of care including admission/observation considered Pneumonia with hypoxia requiring supplemental oxygen and admission Consult Healthcare Provider Management of the patient was discussed with: Hospitalist Spoke to hospitalist who accepted admission Lab Data [facility] Lab Attestation statement: I reviewed the patient's lab results. 04/06/24 11:45 04/06/24 11:45 Labs: Lab Results 0604/06/24 04/06/24 Range/Units 11:45 11:45 12:21 WBC 8.7 (4.8-10.8) X10*3/uL RBC 4.33 L (4.60-5.80) X10*6/uL Hgb 15.1 (14.0-18.0) g/dl Hct 43.4 (42.0-52.0) % MCV 100.2 H (80.0-98.0) fL MCH 34.9 H (27.0-33.0) pg MCHC 34.8 (31.0-36.0) g/dl RDW 14.0 (11.0-16.0) % Plt Count 200 (160-400) X10*3/uL MPV 9.5 (9.4-12.4) fL Immature Gran % (Auto) 0.6 H (0.0-0.4) % Neut % (Auto) 69.1 (45-73) % Lymph % (Auto) 21.4 (20-40) % [place] % (Auto) 7.1 (2-11) % Eos % (Auto) 1.3 (0-4) % Baso % (Auto) 0.5 (0-2) % Lymph # (Auto) 1.9 (1.2-4.9) X10*3/uL [place] # (Auto) 0.6 (0.1-1.2) X10*3/uL Eos # (Auto) 0.1 (0.0-0.4) X10*3/uL Baso # (Auto) 0.0 (0.0-0.2) X10*3/uL Abs Immat Gran (auto) 0.05 H (0.00-0.03) X10*3/uL Absolute Neuts (auto) 6.0 (2.0-8.3) x10*3/uL Absolute Nucleated RBC 0.000 (0.0-0.012) X10*3/uL Nucleated RBC % (auto) 0.0 (0.0-0.2) /100WBC PT 12.7 (11.1-13.3) SEC INR 1.0 (0.9-1.1) APTT 31.2 (26.0-36.8) SEC Sodium 140 (135-145) mmol/L Potassium 2.9 L* (3.3-5.1) mmol/L Chloride 93 L (96-108) mmol/L Carbon Dioxide 36 H (22-29) mmol/L Anion Gap 14 (12-20) BUN 22 H (9-16) mg/dL Creatinine 1.65 H (0.5-1.4) mg/dL Estim Creat Clear Calc 38.4 Estimated GFR 41 Random Glucose 188 H (60-115) mg/dL Lactic Acid 1.7 (0.5-2.0) mmol/L Calcium 9.6 (8.4-10.2) mg/dL Magnesium 1.7 1.8 (1.6-2.6) mg/dL Total Bilirubin 1.1 H (0.0-1.0) mg/dL Direct Bilirubin 0.4 (0.0-0.5) mg/dL AST 12 (5-37) U/L ALT 7 (0-40) U/L Alkaline Phosphatase 111 (39-117) U/L Troponin I High Sens 21.5 (<3.5-35.0) ng/L B-Natriuretic Peptide 65 (<100) pg/mL Total Protein 6.8 (6.5-8.0) g/dL Albumin 3.8 (3.5-5.0) g/dL Urine Color Urine Appearance Urine pH (5.0-9.0) Ur Specific [place] (1.005-1.025) Urine Protein (Neg-Trace) mg/dL Urine Glucose (UA) (Negative) mg/dL Urine Ketones (Negative) mg/dL Urine Blood (Negative) Urine Nitrite (Negative) Ur Leukocyte Esterase (Negative) Urine RBC (0-2) /HPF Urine WBC (0-5) /HPF Ur Squamous Epith Cells (0-2) /HPF Urine Bacteria (None Seen) Hyaline Casts (0-2) /LPF Influenza Type A (PCR) NEGATIVE (Negative) Influenza Type B (PCR) NEGATIVE (Negative) RSV RNA Qual (PCR) NEGATIVE (Negative) SARS-CoV-2 RNA (RT-PCR) NEGATIVE (Negative) 04/06/24 Range/Units 13:35 WBC (4.8-10.8) X10*3/uL RBC (4.60-5.80) X10*6/uL Hgb (14.0-18.0) g/dl Hct (42.0-52.0) % MCV (80.0-98.0) fL MCH (27.0-33.0) pg MCHC (31.0-36.0) g/dl RDW (11.0-16.0) % Plt Count (160-400) X10*3/uL MPV (9.4-12.4) fL Immature Gran % (Auto) (0.0-0.4) % Neut % (Auto) (45-73) % Lymph % (Auto) (20-40) % Lawrence % (Auto) (2-11) % Eos % (Auto) (0-4) % Baso % (Auto) (0-2) % Lymph # (Auto) (1.2-4.9) X10*3/uL [place] # (Auto) (0.1-1.2) X10*3/uL Eos # (Auto) (0.0-0.4) X10*3/uL Baso # (Auto) (0.0-0.2) X10*3/uL Abs Immat Gran (auto) (0.00-0.03) X10*3/uL Absolute Neuts (auto) (2.0-8.3) x10*3/uL Absolute Nucleated RBC (0.0-0.012) X10*3/uL Nucleated RBC % (auto) (0.0-0.2) /100WBC PT (11.1-13.3) SEC INR (0.9-1.1) APTT (26.0-36.8) SEC Sodium (135-145) mmol/L Potassium (3.3-5.1) mmol/L Chloride (96-108) mmol/L Carbon Dioxide (22-29) mmol/L Anion Gap (12-20) BUN (9-16) mg/dL Creatinine (0.5-1.4) mg/dL Estim Creat Clear Calc Estimated GFR Random Glucose (60-115) mg/dL Lactic Acid (0.5-2.0) mmol/L Calcium (8.4-10.2) mg/dL Magnesium (1.6-2.6) mg/dL Total Bilirubin (0.0-1.0) mg/dL Direct Bilirubin (0.0-0.5) mg/dL AST (5-37) U/L ALT (0-40) U/L Alkaline Phosphatase (39-117) U/L Troponin I High Sens (<3.5-35.0) ng/L B-Natriuretic Peptide (<100) pg/mL Total Protein (6.5-8.0) g/dL Albumin (3.5-5.0) g/dL Urine Color Yellow Urine Appearance Clear Urine pH 7.5 (5.0-9.0) Ur Specific [place] 1.015 (1.005-1.025) Urine Protein Negative (Neg-Trace) mg/dL Urine Glucose (UA) >=1000 H (Negative) mg/dL Urine Ketones Negative (Negative) mg/dL Urine Blood Negative (Negative) Urine Nitrite Negative (Negative) Ur Leukocyte Esterase Negative (Negative) Urine RBC 0-2 (0-2) /HPF Urine WBC 0-5 (0-5) /HPF Ur Squamous Epith Cells 0-2 (0-2) /HPF Urine Bacteria None Seen (None Seen) Hyaline Casts 0-2 (0-2) /LPF Influenza Type A (PCR) (Negative) Influenza Type B (PCR) (Negative) RSV RNA Qual (PCR) (Negative) SARS-CoV-2 RNA (RT-PCR) (Negative) Independent Interpretation I performed an independent interpretation of an: EKG and Plain X-Ray Interpretation: I independently reviewed the x-ray, venous US and agree with the radiology reports Independently viewed the EKG which appears to be a sinus rhythm with intermittent atrial tachycardia with rate 120 Radiology Impression Discussion of test interpretation with radiology: I have reviewed the radiologist's reading. Radiologist Impression: [address] [address] XRay Report Signed Patient: Albert Noe MR#: [id number] : 1950 Acct:[id number] Age/Sex: 74 / M ADM Date: 04/06/24 Loc: .ED Attending Dr: Ordering Physician: Yvonne Hardy Date of Service: 04/06/24 Procedure(s): XR chest 2V Accession Number(s): [id number] cc: Yvonne Hardy; AGUILAR,NEFTALY SKI PATROL~ EXAMINATION: XR chest 2V CLINICAL INFORMATION: Reason for Exam SOB COMPARISON: Prior chest x-ray 02/19/2024 TECHNIQUE: XR chest 2V, 2 Views Lungs and [place] Lu[place]: There is an infiltrate/atelectasis at right lung base unchanged. Pleura: Normal. Costophrenic angles are sharp. No pneumothorax. Heart: The heart is normal in size. Mediastinum: The mediastinum is within normal limits.. Bones: Skeletal structures included are normal for patient's age. XR/XR chest 2V IMPRESSION: 1. Redemonstration of infiltrate/atelectasis at right lung base unchanged. 2. No pleural effusion. [place] [address] Ultrasound Report Signed Patient: Albert Noe MR#: [id number] : 1950 Acct:[id number] Age/Sex: 74 / M ADM Date: 04/06/24 Loc: HO.ED Attending Dr: Ordering Physician: Sariah Mckay NP Date of Service: 04/06/24 Procedure(s): US venous duplex LE Accession Number(s): [id number] cc: NEFTALY AGUILAR SKI PATROL; Sariah Mckay NP~ EXAMINATION: US VENOUS ULTRASOUND WITH DOPPLER LOWER EXTREMITY, BILATERAL CLINICAL INFORMATION: Pain and swelling COMPARISON: 2019 TECHNIQUE: Ultrasound of the deep veins is performed from the hip to the calf with compression sonography and color and pulse Doppler assessment. Spectral analysis with color-flow imaging is performed. FINDINGS: RIGHT: There is normal venous compression and respiratory variation and augmented flow. The visualized common femoral vein, superficial femoral vein, profunda femoral vein, popliteal vein, and the trifurcation region shows no evidence of deep venous thrombosis. There is no significant popliteal fossa cyst. LEFT: There is normal venous compression and respiratory variation and augmented flow. The visualized common femoral vein, superficial femoral vein, profunda femoral vein, popliteal vein, and the trifurcation region shows no evidence of deep venous thrombosis. There is no significant popliteal fossa cyst. If the patient's symptoms persist, followup ultrasound in 5 days 7 days might be of value to exclude proximal propagation from a non-visualized calf vein. Included images bilateral inguinal lymph nodes with normal thin cortex and echogenic fatty hilum. US/US venous duplex LE BI IMPRESSION: No DVT demonstrated in the bilateral lower extremities. Critical Care Time Critical Care Time Critical Care Time: Yes Total Critical Care Time: 60 Attestation: Multiple evaluations for heart rate and respiratory status. Hypoxia requiring supplemental oxygen and admission for treatment of his pneumonia. Discussion with hospitalist for admission Discharge Plan Discharge Clinical Impression: Hypoxia, Pneumonia, Acute hypokalemia, SUSHILA (acute kidney injury), Tachycardia Patient Disposition: Admitted As Inpatient Print Language: Vietnamese
--- NOTE | 2024-04-06 11:30 | ECG_ITS ---
Test Reason : ARRHYTHMIA Blood Pressure : / mmHG Vent. Rate : 105 BPM Atrial Rate : 082 BPM P-R Int : 200 ms QRS Dur : 080 ms QT Int : 376 ms P-R-T Axes : 061 026 003 degrees QTc Int : 496 ms Normal sinus rhythm with Premature ventricular complexes and bursts of SVT Nonspecific ST and T wave abnormality Abnormal ECG When compared to the previous EKG of No significant changes seen Referred By: Sariah Baird Electronically Signed By:RIVERA MONROE MD
[2024-04-06 11:53] LABS: MANUAL DIFF FLAG NO
--- NOTE | 2024-04-06 11:54 | PC.NURSE ---
late charting due to patient care, patient noted to have 12 beat run of vtach from desk monitor, this RN immediately to room to assess patient. patient alert and oriented arrived through triage using his wheelchair per his baseline, patient states he went to urgent care and was diagnosed with covid and he has been having associated cough for the last few days. patient states he is having some shortness of breath and swelling to bilateral lower extremities. patient noted to have multiple runs of vtach while this RN and provider were in room but was asymptomatic. patient placed on AED by this RN for precautionary measures. bilateral IVs placed. blood work drawn and sent, repeat EKG completed at bedside. patient on patient monitor SBP soft in the 90s , provider made aware, OK to still give metoprolol
[2024-04-06 11:57] LABS: Basophils Percent Auto 0.5 % (0-2); Eosinophils Absolute Auto 0.1 X10*3/uL (0.0-0.4); Eosinophils Percent Auto 1.3 % (0-4); Hematocrit 43.4 % (42.0-52.0); Hemoglobin 15.1 g/dl (14.0-18.0); Imm Gran Abs Auto 0.05 X10*3/uL (0.00-0.03); Imm Gran Pct Auto 0.6 % (0.0-0.4); Lymphocytes Absolute Auto 1.9 X10*3/uL (1.2-4.9); Lymphocytes Percent Auto 21.4 % (20-40); Mean Corpuscular HGB Conc 34.8 g/dl (31.0-36.0); Mean Corpuscular Hemoglobin 34.9 pg (27.0-33.0); Mean Corpuscular Volume 100.2 fL (80.0-98.0); Mean Platelet Volume 9.5 fL (9.4-12.4); Monocytes Absolute Auto 0.6 X10*3/uL (0.1-1.2); Monocytes Percent Auto 7.1 % (2-11); Neutrophils Percent Auto 69.1 % (45-73); Platelet Count 200 X10*3/uL (160-400); Red Blood Count 4.33 X10*6/uL (4.60-5.80); White Blood Count 8.7 X10*3/uL (4.8-10.8)
--- NOTE | 2024-04-06 11:57 | PC.NURSE ---
Placed on 2 liters 02- sating 87% on ra , 90%C on 2 liters 02
[2024-04-06 12:04] LABS: Prothrombin Time 12.7 SEC (11.1-13.3)
[2024-04-06 12:06] LABS: Partial Thromboplastin Time 31.2 SEC (26.0-36.8)
[2024-04-06 12:20] LABS: Magnesium 1.8 mg/dL (1.6-2.6)
[2024-04-06 12:23] LABS: B Type Natriuretic Peptide 65 pg/mL (<100)
[2024-04-06] MEDS: 0.9 % Sodium Chloride 250 ML 999 ML IV ×2 (12:23→13:34)
--- NOTE | 2024-04-06 12:26 | PC.NURSE ---
jesus SBP noted to be 86. provider made aware, metoprolol held at this time, blood cultures and lactic drawn and sent to lab
[2024-04-06 12:27] LABS: Troponin-I High Sensitivity 21.5 ng/L (<3.5-35.0)
--- NOTE | 2024-04-06 12:27 | PC.NURSE ---
patient made aware of need for urine sample
[2024-04-06 12:30] LABS: Influenza A PCR NEGATIVE (Negative); Influenza B PCR NEGATIVE (Negative); Resp Syncy Virus RNA Qual PCR NEGATIVE (Negative); SARS COV2 PCR INHOUSE NEGATIVE (Negative)
[2024-04-06 12:31] LABS: Alanine Aminotransferase 7 U/L (0-40); Albumin Level 3.8 g/dL (3.5-5.0); Alkaline Phosphatase 111 U/L (39-117); Anion Gap 14 (12-20); Aspartate Amino Transferase 12 U/L (5-37); Bilirubin Direct 0.4 mg/dL (0.0-0.5); Bilirubin Total 1.1 mg/dL (0.0-1.0); Blood Urea Nitrogen 22 mg/dL (9-16); Calcium 9.6 mg/dL (8.4-10.2); Carbon Dioxide 36 mmol/L (22-29); Chloride 93 mmol/L (96-108); Creatinine Clr Calc Pharmacy 38.4; Estimated Glomerular Filt Rate 41; Glucose Random 188 mg/dL (60-115); Potassium 2.9 mmol/L (3.3-5.1); Sodium 140 mmol/L (135-145); Total Protein 6.8 g/dL (6.5-8.0)
[2024-04-06] MEDS: Potassium Chloride ER 20 MEQ TAB.ER.PRT 60 MEQ PO (12:35)
[2024-04-06 12:53] LABS: Lactic Acid 1.7 mmol/L (0.5-2.0)
--- NOTE | 2024-04-06 12:58 | PC.NURSE ---
delay in IV medication administration r/t ultrasound at bedside
[2024-04-06 12:59] LABS: Magnesium 1.7 mg/dL (1.6-2.6)
[2024-04-06] MEDS: Potassium Chloride/H20 10 MEQ/100 ML PIGGYBACK 100 MEQ IV ×2 (13:00→14:13)
[2024-04-06] MEDS: cefTRIAXone sodium 2 GM in 0.9 % Sodium Chloride 50 ML IV (13:20)
[2024-04-06] MEDS: Magnesium Sulfate/H2O 2 GM/50 ML PIGGYBACK IV ×2 (13:20→19:45)
[2024-04-06 13:52] LABS: Appearance Urine Clear; Color Urine Yellow; Glucose Urine UA >=1000 mg/dL (Negative); Leukocyte Esterase Urine Negative (Negative); Nitrite Urine Negative (Negative); PH 7.5 (5.0-9.0); Specific Gravity - Urine 1.015 (1.005-1.025); UMIC TRIGGER UACC YES; Urine Blood Negative (Negative); Urine Ketones Negative (Negative); Urine Protein Negative (Neg-Trace)
[2024-04-06 13:55] LABS: Bacteria Urine None Seen (None Seen); Hyaline Casts Urine 0-2 /LPF (0-2); RBC Urine 0-2 /HPF (0-2); Squamous Epithelial Cell Urine 0-2 /HPF (0-2); WBC Urine 0-5 /HPF (0-5)
--- NOTE | 2024-04-06 14:40 | PM.IMHP ---
History of Present Illness Date of Service: 04/06/24 Attending physician on admission: Froylan Su Chief Complaint: sob, cough 74 year old male with history of CAD, HTN, DM, diabetic polyneuropathy, and HFrEF presented to the ED from walk in clinic for evaluation of rios and productive cough worsening over the last 1 month. He states multiple people in his apartment complex (though he does live alone in his actual apartment complex) have tested postive for COVID. He states over the last month has had a productive cough with yellow/green sputum and rios that has been worsening. Denies any worsening of ble edema and no orthopnea/PND. No weight gain. Reports subjective fevers but has not checked his temperature. No shaking chills, st, sinus pressure, abd pain, n/v/d, urinary symptoms, wheezing, sob at rest, lightheadedness, palpitations, or chest pain. Since arrival, appears to have intermittent runs of non sustained SVT with HR in the 140s that quickly return to 70-80s. He is afebrile. Was initially reported as hypoxic to 87% but during exam maintaining oximetry 96-99% on RA. NO leukocytosis or anemia. Creat slightly bumped from baseline at 1.65, but no true SUSHILA. BUN 22. K 2.9, CO2 36. UA unremarkable. Negative covid, flu, rsv. CXR shows atelectasis/infiltrate RLL unchanged. Venous duplex negative for DVT. In the ED has received IV/PO KCl, IV mag, IV ctx, and IVF. Review of Systems Review of Systems: Yes all other systems are reviewed and are negative [facility] Medical History Encounter for medication monitoring Depression Restless leg syndrome Peripheral neuropathy Personal history of nicotine dependence History of non-ST elevation myocardial infarction (NSTEMI) (~09/2018) History of cardiac arrest (~09/2018) Other and unspecified hyperlipidemia Essential hypertension Type 2 diabetes mellitus with unspecified complications Atherosclerotic cardiovascular disease Primary osteoarthritis, left hand Primary osteoarthritis, right hand Family History Mother No problems noted. Mother No problems noted. 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 Meds Allergies Allergy/AdvReac Type Severity Reaction Status Date / Time No Known Allergies Allergy Verified 04/06/24 10:53 [No Known Allergies*] Home Medications ?Medication ?Instructions ?Recorded ?Confirmed ?Last Taken ?Type acetaminophen 500 mg tablet 500 mg PO Q6H PRN 08/12/20 08/22/23 Unknown History (Tylenol Extra Strength) aspirin 81 mg tablet,delayed 81 mg PO BEDTIME 08/12/20 08/22/23 02/11/21 08:00 History release (Adult Low Dose Aspirin) ferrous sulfate 325 mg (65 mg 325 mg PO BID 08/12/20 08/22/23 Unknown History iron) tablet hydrochlorothiazide 12.5 mg tablet 12.5 mg PO DAILY 08/12/20 08/22/23 Unknown History trazodone 100 mg tablet 100 mg PO BEDTIME 08/12/20 08/22/23 Unknown History amlodipine 5 mg tablet 5 mg PO DAILY 11/19/20 08/22/23 Unknown History gabapentin 600 mg tablet 600 mg PO BEDTIME 11/19/20 08/22/23 Unknown History pravastatin 40 mg tablet 40 mg PO BEDTIME 11/19/20 08/22/23 Unknown History blood sugar diagnostic #10 ea 03/09/21 08/22/23 Unknown History pen needle, diabetic 31 gauge x #50 ea 03/09/21 08/22/23 Unknown History 12/22 pen needle, diabetic 31 gauge x #1,200 ea 12/17/21 08/22/23 Unknown History 02/21 (UltiCare Pen Needle) furosemide 20 mg tablet 40 mg PO DAILY 05/24/22 08/22/23 Unknown History pramipexole 1 mg tablet 1 mg PO BEDTIME 05/18/23 08/22/23 Unknown History calcitriol 0.25 mcg capsule 0.25 mcg PO MOWEFR@0900 04/06/24 Unknown History clonazepam 0.5 mg tablet 0.5 mg PO BEDTIME 04/06/24 Unknown History clotrimazole 1 % topical cream 1 appl topical BID 04/06/24 Unknown History empagliflozin 25 mg tablet 25 mg PO DAILY 04/06/24 Unknown History (Jardiance) insulin glargine 100 unit/mL (3 8 unit subcut DAILY 04/06/24 Unknown History mL) subcutaneous pen (Lantus Solostar U-100 Insulin) Physical Exam Vital Signs and Narrative: Vital Signs: Last Vital Signs Temp 97.2 F 04/06/24 10:52 Pulse 74 04/06/24 14:04 Resp 14 04/06/24 14:04 BP 114/80 04/06/24 14:04 Pulse Ox 96 04/06/24 14:04 O2 Del Method Nasal Cannula 04/06/24 14:04 O2 Flow Rate 2 04/06/24 14:04 BMI result Body Mass Index 27.4 Constitutional - Awake and Alert, No apparent distress Eyes - PERRLA, EOMI Cardiovascular - S1S2, RRR, No edema Respiratory - Normal lung expansion, Normal respiratory effort, No respiratory distress, bilateral rhonchi Gastrointestinal - NT / ND; +BS; No rebound or guarding Extremities - no calf tenderness bilaterally, no swelling Skin - Warm/Dry Neurological - Alert & oriented x3 Psychological - Appropriate affect Results Labs 04/06/24 11:45 04/06/24 11:45 Labs: Laboratory Results - last 24 hr 04/06/24 04/06/24 04/06/24 11:45 11:45 12:21 MCV 100.2 H MCH 34.9 H MCHC 34.8 RDW 14.0 Plt Count 200 MPV 9.5 Immature Gran % (Auto) 0.6 H Neut % (Auto) 69.1 Lymph % (Auto) 21.4 [place] % (Auto) 7.1 Eos % (Auto) 1.3 Baso % (Auto) 0.5 Lymph # (Auto) 1.9 [place] # (Auto) 0.6 Eos # (Auto) 0.1 Baso # (Auto) 0.0 Abs Immat Gran (auto) 0.05 H Absolute Neuts (auto) 6.0 Absolute Nucleated RBC 0.000 Nucleated RBC % (auto) 0.0 PT 12.7 INR 1.0 APTT 31.2 Anion Gap 14 Estim Creat Clear Calc 38.4 Estimated GFR 41 Random Glucose 188 H Lactic Acid 1.7 Calcium 9.6 Magnesium 1.7 1.8 Total Bilirubin 1.1 H Direct Bilirubin 0.4 AST 12 ALT 7 Alkaline Phosphatase 111 Troponin I High Sens 21.5 B-Natriuretic Peptide 65 Total Protein 6.8 Albumin 3.8 Urine Color Urine Appearance Urine pH Ur Specific [place] Urine Protein Urine Glucose (UA) Urine Ketones Urine Blood Urine Nitrite Ur Leukocyte Esterase Urine RBC Urine WBC Ur Squamous Epith Cells Urine Bacteria Hyaline Casts Influenza Type A (PCR) NEGATIVE Influenza Type B (PCR) NEGATIVE RSV RNA Qual (PCR) NEGATIVE SARS-CoV-2 RNA (RT-PCR) NEGATIVE 04/06/24 13:35 MCV MCH MCHC RDW Plt Count MPV Immature Gran % (Auto) Neut % (Auto) Lymph % (Auto) [place] % (Auto) Eos % (Auto) Baso % (Auto) Lymph # (Auto) [place] # (Auto) Eos # (Auto) Baso # (Auto) Abs Immat Gran (auto) Absolute Neuts (auto) Absolute Nucleated RBC Nucleated RBC % (auto) PT INR APTT Anion Gap Estim Creat Clear Calc Estimated GFR Random Glucose Lactic Acid Calcium Magnesium Total Bilirubin Direct Bilirubin AST ALT Alkaline Phosphatase Troponin I High Sens B-Natriuretic Peptide Total Protein Albumin Urine Color Yellow Urine Appearance Clear Urine pH 7.5 Ur Specific [place] 1.015 Urine Protein Negative Urine Glucose (UA) >=1000 H Urine Ketones Negative Urine Blood Negative Urine Nitrite Negative Ur Leukocyte Esterase Negative Urine RBC 0-2 Urine WBC 0-5 Ur Squamous Epith Cells 0-2 Urine Bacteria None Seen Hyaline Casts 0-2 Influenza Type A (PCR) Influenza Type B (PCR) RSV RNA Qual (PCR) SARS-CoV-2 RNA (RT-PCR) Imaging Radiologist's Impressions: Impressions Chest X-Ray 04/06/24 11:23 IMPRESSION: 1. Redemonstration of infiltrate/atelectasis at right lung base unchanged. 2. No pleural effusion. Venous Duplex 04/06/24 13:12 IMPRESSION: No DVT demonstrated in the bilateral lower extremities. Assessment and Plan (1) SVT (supraventricular tachycardia): Status: Acute (2) Hypokalemia: Status: Acute (3) Pneumonia: Status: Acute Plan 74 year old male with history of CAD, HTN, DM, diabetic polyneuropathy, and HFrEF admitted for pneumonia wtih SVT #Possible acute RLL pneumonia -no persistent hypoxia, CXR with unchanged atelectasis/infiltrate. No fevers, leukcytosis. Check PCT. Chest CT ordered -IV ctx and doxy for now (initiated 04/06) -Check RPP -duonebs q4h while awake -guaifenesin prn -sputum culture, legionella ag, strep pneumo ag -follow cbc/cultures #SVT -suspect in setting of dehydration -Continue gentle IVF, metoprolol 12.5mg BID -intermittent runs up to 140s -monitor on tele -correct lyte imbalances #Acute hypokalemia -likely in setting of diuretic use/dehydration -Given IV/PO repletion in ED -continue IVF, monitor on tele -follow lytes #CKD stage 3 -slight worsening of creat likely r/t dehydration, no true sushila -continue ivf, hold nephrotoxins/diuretics -follow renal fx/lytes #Insulin dependent type 2 diabetes- without hyperglycemia -dose adjusted basal insulin -poc glucose, diabetic diet -hold jardiance #HFrEF -no exacerbation -hold diuretics, jardiance in setting of above #HTN -bp soft. Hold hctz, lasix -resume amlodipine am. Add metoprolol as above #PAD/CAD -continue asa, cilostazol. No chest pain #Diabetic polyneuropathy -continue gabapentin DVT prophylaxis- lovenox full code Pt requires inpt stay at least 2 midnights for management of acute pneumonia with persistent SVT in setting of electrolyte abnormality dehydration requiring iv abx, ivf, cardiac monitoring, and repletion of electrolyte abnormality Quality Stroke Does the patient have a stroke diagnosis?: No VTE Prior VTE?: No VTE Risk Level:: Medical - moderate - high VTE Device Contraindication: Treatment Not Indicated VTE Drug Contraindication: N/A - Med Ordered
[2024-04-06 15:41] LABS: Procalcitonin 0.06 ng/mL
[2024-04-06] MEDS: Albuterol/Iprat 2.5/0.5MG 3 ML AMPUL.NEB INHALE ×2 (15:43→19:45)
[2024-04-06] MEDS: Doxycycline Hyclate 100 MG in 0.9 % Sodium Chloride 250 ML 166.67 MG IV (16:20)
[2024-04-06] MEDS: 0.9 % Sodium Chloride 1,000 ML 75 ML IVCONT (16:24)
--- NOTE | 2024-04-06 16:32 | PHA.MEDREC ---
Pharmacy Consult ? Medication Reconciliation Pharmacy has completed the medication reconciliation.
--- NOTE | 2024-04-06 16:43 | PC.NURSE ---
per provider hold metoprolol d/t BP
[2024-04-06 17:53] LABS: Glucose, Whole Blood 143 mg/dL (60-115)
[2024-04-06] MEDS: Nicotine 7 MG PATCH.TD24 TRANSDERMA (17:57)
[2024-04-06] MEDS: Pravastatin Sodium 40 MG TABLET PO (21:06)
[2024-04-06] MEDS: Metoprolol Tartrate 12.5 MG HALFTAB PO (21:06)
[2024-04-06] MEDS: Ferrous Sulfate 324 MG TABLET.DR PO (21:06)
[2024-04-06] MEDS: traZODone HCL 100 MG TABLET 200 MG PO (21:06)
[2024-04-06] MEDS: clonazePAM 0.5 MG TABLET PO (21:06)
[2024-04-06] MEDS: Aspirin Enteric Coated 81 MG TABLET.DR PO (21:07)
[2024-04-06] MEDS: Gabapentin 600 MG TABLET PO (21:07)
[2024-04-06] MEDS: cilostazoL 100 MG TABLET PO (21:07)
[2024-04-06] MEDS: Pramipexole Di-HCL 1 MG TABLET PO (21:19)
[2024-04-06 21:24] LABS: Glucose, Whole Blood 205 mg/dL (60-115)
[2024-04-06 21:38] LABS: Anion Gap 22 (12-20); Blood Urea Nitrogen 20 mg/dL (9-16); Calcium 9.1 mg/dL (8.4-10.2); Carbon Dioxide 25 mmol/L (22-29); Chloride 96 mmol/L (96-108); Creatinine Clr Calc Pharmacy 42.2; Estimated Glomerular Filt Rate 46; Glucose Random 191 mg/dL (60-115); Magnesium 1.9 mg/dL (1.6-2.6); Potassium 3.7 mmol/L (3.3-5.1); Sodium 139 mmol/L (135-145)
[2024-04-06] MEDS: Insulin Lispro 100 UNIT/ML 3 ML VIAL SUBCUT (22:21)
[2024-04-06] MEDS: Clotrimazole 1 % Cream 15 GM TUBE 1 APPL TOPICAL (22:21)
[2024-04-07] VITALS (10 sets, daily range): BP systolic 99–144; BP diastolic 58–75; PULSE 62–94; RESP 15–20; TEMP 36–36.3; O2SAT 93–96
[2024-04-07] MEDS: Doxycycline Hyclate 100 MG in 0.9 % Sodium Chloride 250 ML 166.67 MG IV ×2 (03:17→16:53)
--- NOTE | 2024-04-07 05:50 | PC.NURSE ---
patient had multiple runs of svt at beginning of shift. patient reports feeling asymptomatic with no complaints of pain, vitals taken and stable. MD notified, STAT labs ordered and obtained. magnesium 2gm ordered and administered. patient resting calmly in bed with no reports of pain.
[2024-04-07 06:37] LABS: MANUAL DIFF FLAG NO
[2024-04-07 06:57] LABS: Basophils Absolute Auto 0.1 X10*3/uL (0.0-0.2); Basophils Percent Auto 0.6 % (0-2); Eosinophils Absolute Auto 0.1 X10*3/uL (0.0-0.4); Eosinophils Percent Auto 1.5 % (0-4); Hematocrit 41.5 % (42.0-52.0); Hemoglobin 14.3 g/dl (14.0-18.0); Imm Gran Abs Auto 0.05 X10*3/uL (0.00-0.03); Imm Gran Pct Auto 0.6 % (0.0-0.4); Lymphocytes Percent Auto 21.8 % (20-40); Mean Corpuscular HGB Conc 34.5 g/dl (31.0-36.0); Mean Corpuscular Hemoglobin 34.7 pg (27.0-33.0); Mean Corpuscular Volume 100.7 fL (80.0-98.0); Mean Platelet Volume 9.6 fL (9.4-12.4); Monocytes Absolute Auto 0.7 X10*3/uL (0.1-1.2); Monocytes Percent Auto 7.7 % (2-11); Neutrophils Absolute Auto 6.2 x10*3/uL (2.0-8.3); Neutrophils Percent Auto 67.8 % (45-73); Platelet Count 196 X10*3/uL (160-400); Red Blood Count 4.12 X10*6/uL (4.60-5.80); Red Cell Distribution Width 14.1 % (11.0-16.0); White Blood Count 9.1 X10*3/uL (4.8-10.8)
[2024-04-07 06:58] LABS: Anion Gap 13 (12-20); Blood Urea Nitrogen 19 mg/dL (9-16); Calcium 9.6 mg/dL (8.4-10.2); Carbon Dioxide 34 mmol/L (22-29); Chloride 98 mmol/L (96-108); Estimated Glomerular Filt Rate 53; Glucose Random 100 mg/dL (60-115); Potassium 3.5 mmol/L (3.3-5.1); Sodium 141 mmol/L (135-145)
[2024-04-07 07:27] LABS: Glucose, Whole Blood 98 mg/dL (60-115)
[2024-04-07] MEDS: Albuterol/Iprat 2.5/0.5MG 3 ML AMPUL.NEB INHALE ×4 (07:56→20:07)
[2024-04-07] MEDS: 0.9 % Sodium Chloride Flush 3 ML SYRINGE IVFLUSH ×2 (08:37→16:58)
[2024-04-07] MEDS: Clotrimazole 1 % Cream 15 GM TUBE 1 APPL TOPICAL ×2 (08:37→20:42)
[2024-04-07 09:34] LABS: Adenovirus PCR Not Detected (Not Detect.); Bordetella parapertussis PCR Not Detected (Not Detect.); Bordetella pertussis PCR Not Detected (Not Detect.); Chlamydia pneumoniae PCR Not Detected (Not Detect.); Coronavirus 229E PCR Not Detected (Not Detect.); Coronavirus HKU1 PCR Not Detected (Not Detect.); Coronavirus NL63 PCR Not Detected (Not Detect.); Coronavirus OC43 PCR Not Detected (Not Detect.); Human metapneumovirus PCR Not Detected (Not Detect.); Influenza A PCR Not Detected (Not Detect.); Influenza B PCR Not Detected (Not Detect.); Mycoplasma pneumoniae PCR Not Detected (Not Detect.); Parainfluenza 1 PCR Not Detected (Not Detect.); Parainfluenza 2 PCR Not Detected (Not Detect.); Parainfluenza 3 PCR Not Detected (Not Detect.); Parainfluenza 4 PCR Not Detected (Not Detect.); RSV PCR Not Detected (Not Detect.); Rhino/Enterovirus PCR Not Detected (Not Detect.)
[2024-04-07 10:06] LABS: SARS-CoV-2 PCR Not Detected (Not Detect.)
--- NOTE | 2024-04-07 10:20 | HO.PM.IMPN ---
Subjective Subjective Date of Service: 04/07/24 Interval History: Admitted due to dyspnea on exertion and cough and noted to have hypoxia finger oximetry 87% on room air currently 93% on 2 L Patient feeling better this morning but still complaining of shortness of breath cough nasal congestion, denies chest pain, no palpitations, no orthopnea, no PND, feels leg edema has resolved. No headache, no dizziness tolerating diet no nausea no vomiting or diarrhea. Review of Systems All other system reviewed and are negative Physical Exam Vital Signs: Vital Signs: Last Vital Signs Temp 97.3 F 04/07/24 08:00 Pulse 64 04/07/24 08:00 Resp 20 04/07/24 08:00 BP 107/58 L 04/07/24 08:00 Pulse Ox 93 04/07/24 08:00 O2 Del Method Nasal Cannula 04/07/24 08:00 O2 Flow Rate 2 04/07/24 08:00 BMI result Body Mass Index 27.4 Const: Other: General resting comfortably in no acute distress. Anicteric sclera Neck is supple no JVD. CVS regular rate rhythm, Respiratory lungs coarse breath sounds, no respiratory distress, no wheeze, no rhonchi. Gastrointestinal abdomen soft, non tender, bowel sounds audible, Extremities no edema. Mild hyperemia right lower extremity, no warmth. Neuro non focal Skin no rash Psych appropriate affect. Objective Data Active Medications Acetaminophen (Acetaminophen 325 Mg Tablet) 650 mg PO Q6H PRN PRN Reason: Pain, Mild (Pain Scale 1-3), fever or headache Albuterol/Ipratropium (Albuterol/Iprat 2.5/0.5mg 3 Ml Ampul.Neb) 3 ml INHALE RQ4H WHILE AWAKE [facility] Last Admin: 04/07/24 07:56 Dose: 3 ml Documented By: KAYLENE Aspirin (Aspirin Enteric Coated 81 Mg Tablet.) 81 mg PO BEDTIME [facility] Last Admin: 04/06/24 21:07 Dose: 81 mg Documented By: MAYRA Calcitriol (Calcitriol 0.25 Mcg Capsule) 0.25 mcg PO MOWEFR@0900 [facility] Calcium Carbonate (Calcium Carbonate 750 Mg Tab.Chew) 750 mg PO Q4H PRN PRN Reason: Heartburn Cilostazol (Cilostazol 100 Mg Tablet) 100 mg PO BID [facility] Last Admin: 04/07/24 08:48 Dose: Not Given Documented By: YANICK Non-Admin Reason: Patient Refused Clonazepam (Clonazepam 0.5 Mg Tablet) 0.5 mg PO BEDTIME [facility] Last Admin: 04/06/24 21:06 Dose: 0.5 mg Documented By: MAYRA Clotrimazole (Clotrimazole 1 % Cream 15 Gm Tube) 1 appl TOPICAL BID [facility]; Protocol Last Admin: 04/07/24 08:37 Dose: 1 appl Documented By: YANICK Ferrous Sulfate (Ferrous Sulfate 324 Mg Tablet.Dr) 324 mg PO BID [facility] Last Admin: 04/07/24 08:48 Dose: Not Given Documented By: YANICK Non-Admin Reason: Patient Refused Gabapentin (Gabapentin 600 Mg Tablet) 600 mg PO BEDTIME [facility] Last Admin: 04/06/24 21:07 Dose: 600 mg Documented By: MAYRA Glucose (Glucose Gel 15 Gm Gel..Gram.) 15 gm PO Q15M PRN; Protocol PRN Reason: per Hypoglycemia Standing Ord. Guaifenesin (Guaifenesin 200 Mg/10 Ml 10 Ml Liquid) 10 ml PO Q4H PRN PRN Reason: Cough Ceftriaxone Sodium 1 gm/ (Sodium Chloride) 50 mls @ 100 mls/hr IV Q24H FARSHAD Doxycycline Hyclate 100 mg/ (Sodium Chloride) 250 mls @ 166.67 mls/hr IV Q12H [facility] Last Infusion: 04/07/24 05:10 Dose: Infused Documented By: MAYRA Dextrose (D10) 250 mls @ 750 mls/hr IV Q15M PRN; Protocol PRN Reason: per Hypoglycemia Standing Ord. Insulin Glargine (Insulin Glargine,Hum.Rec.Anlog 100 Unit/Ml 10 Ml Vial) 6 unit SUBCUT DAILY [facility] Last Admin: 04/07/24 08:38 Dose: Not Given Documented By: YANICK Non-Admin Reason: Held for POC Insulin Human Lispro (Insulin Lispro 100 Unit/Ml 3 Ml Vial) 0 unit SUBCUT QIDACHS [facility]; Protocol Last Admin: 04/07/24 07:34 Dose: Not Given Documented By: YANICK Non-Admin Reason: No Insulin Coverage Magnesium Hydroxide (Milk Of Magnesia 30 Ml Oral.Susp) 30 ml PO DAILY PRN PRN Reason: Constipation Melatonin (Melatonin 3 Mg Tablet) 6 mg PO BEDTIME PRN PRN Reason: Insomnia Nicotine (Nicotine 7 Mg Patch.Td24) 7 mg TRANSDERMA Q24H [facility] Last Admin: 04/06/24 17:57 Dose: 7 mg Documented By: YANICK Nicotine Polacrilex (Nicotine Polacrilex Lozenge 2 Mg Lozenge) 2 mg BUCCAL Q2H PRN PRN Reason: Smoking Cessation Pramipexole Dihydrochloride (Pramipexole Di-Hcl 1 Mg Tablet) 1 mg PO BEDTIME [facility] Last Admin: 04/06/24 21:19 Dose: 1 mg Documented By: MAYRA Pravastatin Sodium (Pravastatin Sodium 40 Mg Tablet) 40 mg PO BEDTIME [facility] Last Admin: 04/06/24 21:06 Dose: 40 mg Documented By: MAYRA Sodium Chloride (0.9 % Sodium Chloride Flush 3 Ml Syringe) 3 ml IVFLUSH QSHIFT [facility] Last Admin: 04/07/24 08:37 Dose: 3 ml Documented By: YANICK Tramadol HCl (Tramadol Hcl 50 Mg Tablet) 50 mg PO TID PRN PRN Reason: Pain, Severe (Pain Scale 7-10) Trazodone HCl (Trazodone Hcl 100 Mg Tablet) 200 mg PO BEDTIME [facility] Last Admin: 04/06/24 21:06 Dose: 200 mg Documented By: MAYRA Labs 04/07/24 06:26 04/07/24 06:26 Labs: Laboratory Results - last 24 hr 04/06/24 04/06/24 04/06/24 11:45 11:45 12:21 MCV 100.2 H MCH 34.9 H MCHC 34.8 RDW 14.0 Plt Count 200 MPV 9.5 Immature Gran % (Auto) 0.6 H Neut % (Auto) 69.1 Lymph % (Auto) 21.4 [place] % (Auto) 7.1 Eos % (Auto) 1.3 Baso % (Auto) 0.5 Lymph # (Auto) 1.9 [place] # (Auto) 0.6 Eos # (Auto) 0.1 Baso # (Auto) 0.0 Abs Immat Gran (auto) 0.05 H Absolute Neuts (auto) 6.0 Absolute Nucleated RBC 0.000 Nucleated RBC % (auto) 0.0 PT 12.7 INR 1.0 APTT 31.2 Anion Gap 14 Estim Creat Clear Calc 38.4 Estimated GFR 41 POC Glucose Random Glucose 188 H Lactic Acid 1.7 Calcium 9.6 Magnesium 1.7 1.8 Total Bilirubin 1.1 H Direct Bilirubin 0.4 AST 12 ALT 7 Alkaline Phosphatase 111 Troponin I High Sens 21.5 B-Natriuretic Peptide 65 Total Protein 6.8 Albumin 3.8 Procalcitonin 0.06 Urine Color Urine Appearance Urine pH Ur Specific [place] Urine Protein Urine Glucose (UA) Urine Ketones Urine Blood Urine Nitrite Ur Leukocyte Esterase Urine RBC Urine WBC Ur Squamous Epith Cells Urine Bacteria Hyaline Casts Respiratory Panel Ort[place] Adenovirus (Rapid PCR) B.pert (TEM-PCR) B.parapertussis DNA PCR C. pneumoniae DNA (PCR) Coronavirus OC43 (PCR) Coronavirus HKU1 (PCR) Coronavirus 229E (PCR) Coronavirus NL63 (PCR) Human Metapneumovir PCR Influenza A (RT-PCR) Influenza Type A (PCR) NEGATIVE Influenza B (RT-PCR) Influenza Type B (PCR) NEGATIVE M. pneumoniae (PCR) Parainfluenza 1 (PCR) Parainfluenza 2 (PCR) Parainfluenza 3 (PCR) Parainfluenza 4 (PCR) RSV (PCR) RSV RNA Qual (PCR) NEGATIVE Entero/Rhino (PCR) SARS-CoV-2 RNA (RT-PCR) NEGATIVE 04/06/24 04/06/24 04/06/24 13:35 15:50 17:39 MCV MCH MCHC RDW Plt Count MPV Immature Gran % (Auto) Neut % (Auto) Lymph % (Auto) [place] % (Auto) Eos % (Auto) Baso % (Auto) Lymph # (Auto) [place] # (Auto) Eos # (Auto) Baso # (Auto) Abs Immat Gran (auto) Absolute Neuts (auto) Absolute Nucleated RBC Nucleated RBC % (auto) PT INR APTT Anion Gap Estim Creat Clear Calc Estimated GFR POC Glucose 143 H Random Glucose Lactic Acid Calcium Magnesium Total Bilirubin Direct Bilirubin AST ALT Alkaline Phosphatase Troponin I High Sens B-Natriuretic Peptide Total Protein Albumin Procalcitonin Urine Color Yellow Urine Appearance Clear Urine pH 7.5 Ur Specific [place] 1.015 Urine Protein Negative Urine Glucose (UA) >=1000 H Urine Ketones Negative Urine Blood Negative Urine Nitrite Negative Ur Leukocyte Esterase Negative Urine RBC 0-2 Urine WBC 0-5 Ur Squamous Epith Cells 0-2 Urine Bacteria None Seen Hyaline Casts 0-2 Respiratory Panel Ort[place] See Note Adenovirus (Rapid PCR) Not Detected B.pert (TEM-PCR) Not Detected B.parapertussis DNA PCR Not Detected C. pneumoniae DNA (PCR) Not Detected Coronavirus OC43 (PCR) Not Detected Coronavirus HKU1 (PCR) Not Detected Coronavirus 229E (PCR) Not Detected Coronavirus NL63 (PCR) Not Detected Human Metapneumovir PCR Not Detected Influenza A (RT-PCR) Not Detected Influenza Type A (PCR) Influenza B (RT-PCR) Not Detected Influenza Type B (PCR) M. pneumoniae (PCR) Not Detected Parainfluenza 1 (PCR) Not Detected Parainfluenza 2 (PCR) Not Detected Parainfluenza 3 (PCR) Not Detected Parainfluenza 4 (PCR) Not Detected RSV (PCR) Not Detected RSV RNA Qual (PCR) Entero/Rhino (PCR) Not Detected SARS-CoV-2 RNA (RT-PCR) Not Detected 04/06/24 04/06/24 04/07/24 20:05 20:45 06:26 MCV 100.7 H MCH 34.7 H MCHC 34.5 RDW 14.1 Plt Count 196 MPV 9.6 Immature Gran % (Auto) 0.6 H Neut % (Auto) 67.8 Lymph % (Auto) 21.8 [place] % (Auto) 7.7 Eos % (Auto) 1.5 Baso % (Auto) 0.6 Lymph # (Auto) 2.0 [place] # (Auto) 0.7 Eos # (Auto) 0.1 Baso # (Auto) 0.1 Abs Immat Gran (auto) 0.05 H Absolute Neuts (auto) 6.2 Absolute Nucleated RBC 0.000 Nucleated RBC % (auto) 0.0 PT INR APTT Anion Gap 22 H 13 Estim Creat Clear Calc 42.2 48.0 Estimated GFR 46 53 POC Glucose 205 H Random Glucose 191 H 100 Lactic Acid Calcium 9.1 9.6 Magnesium 1.9 Total Bilirubin Direct Bilirubin AST ALT Alkaline Phosphatase Troponin I High Sens B-Natriuretic Peptide Total Protein Albumin Procalcitonin Urine Color Urine Appearance Urine pH Ur Specific [place] Urine Protein Urine Glucose (UA) Urine Ketones Urine Blood Urine Nitrite Ur Leukocyte Esterase Urine RBC Urine WBC Ur Squamous Epith Cells Urine Bacteria Hyaline Casts Respiratory Panel [place] Adenovirus (Rapid PCR) B.pert (TEM-PCR) B.parapertussis DNA PCR C. pneumoniae DNA (PCR) Coronavirus OC43 (PCR) Coronavirus HKU1 (PCR) Coronavirus 229E (PCR) Coronavirus NL63 (PCR) Human Metapneumovir PCR Influenza A (RT-PCR) Influenza Type A (PCR) Influenza B (RT-PCR) Influenza Type B (PCR) M. pneumoniae (PCR) Parainfluenza 1 (PCR) Parainfluenza 2 (PCR) Parainfluenza 3 (PCR) Parainfluenza 4 (PCR) RSV (PCR) RSV RNA Qual (PCR) Entero/Rhino (PCR) SARS-CoV-2 RNA (RT-PCR) 04/07/24 07:10 MCV MCH MCHC RDW Plt Count MPV Immature Gran % (Auto) Neut % (Auto) Lymph % (Auto) [place] % (Auto) Eos % (Auto) Baso % (Auto) Lymph # (Auto) [place] # (Auto) Eos # (Auto) Baso # (Auto) Abs Immat Gran (auto) Absolute Neuts (auto) Absolute Nucleated RBC Nucleated RBC % (auto) PT INR APTT Anion Gap Estim Creat Clear Calc Estimated GFR POC Glucose 98 Random Glucose Lactic Acid Calcium Magnesium Total Bilirubin Direct Bilirubin AST ALT Alkaline Phosphatase Troponin I High Sens B-Natriuretic Peptide Total Protein Albumin Procalcitonin Urine Color Urine Appearance Urine pH Ur Specific [place] Urine Protein Urine Glucose (UA) Urine Ketones Urine Blood Urine Nitrite Ur Leukocyte Esterase Urine RBC Urine WBC Ur Squamous Epith Cells Urine Bacteria Hyaline Casts Respiratory Panel [place] Adenovirus (Rapid PCR) B.pert (TEM-PCR) B.parapertussis DNA PCR C. pneumoniae DNA (PCR) Coronavirus OC43 (PCR) Coronavirus HKU1 (PCR) Coronavirus 229E (PCR) Coronavirus NL63 (PCR) Human Metapneumovir PCR Influenza A (RT-PCR) Influenza Type A (PCR) Influenza B (RT-PCR) Influenza Type B (PCR) M. pneumoniae (PCR) Parainfluenza 1 (PCR) Parainfluenza 2 (PCR) Parainfluenza 3 (PCR) Parainfluenza 4 (PCR) RSV (PCR) RSV RNA Qual (PCR) Entero/Rhino (PCR) SARS-CoV-2 RNA (RT-PCR) Assessment and Plan (1) Hypokalemia: Status: Acute (2) SVT (supraventricular tachycardia): Status: Acute (3) SUSHILA (acute kidney injury): Status: Acute Plan 74 year old male with history of CAD, HTN, DM, diabetic polyneuropathy, and HFrEF admitted for pneumonia wtih SVT # acute hypoxic respiratory failure with dyspnea on exertion/cough Complaining of persistent shortness of breath and cough but better chest x-ray showed infiltrate /atelectasis at right lung base unchanged from prior chest x-rays, therefore CT chest obtained that showed right middle lobe consolidation favored to represent atelectasis and bilateral lower lobe subsegmental atelectasis,PCT 0.06, No fevers,no leukcytosis. respiratory viral panel neg. Legionella antigen, strep pneumo antigen pending Less likely pneumonia/symptoms likely due to chronic atelectasis getting worse due to lack of mobility, limited due to leg pain and superimposed ac bronchitis. will dc IV ctx , continue IV doxy (initiated 04/06) x5 days for possible bronchitis Continue duonebs q4h while awake and add scheduled guaifenesin Add incentive spirometry, Wean oxygen as tolerated noted to have desaturation at night. # Arrhythmias Noted nonsustained V-tach/ SVT /bigeminy on telemonitor Potassium improved to 3.5 , will keep potassium greater than 4, no other electrolyte abnormality Will obtain echocardiogram, check TSH Case discussed with Dr. Velázquez recommend low-dose beta-rogelio # Tobacco use disorder continue nicotine patch and Nicorette gums #Acute hypokalemia repleted and normalized likely due to diuretics #CKD stage 3 -creatinine improved from 1.65-1.32 at baseline, no status post IV fluids, continue to hold diuretics . #Insulin dependent type 2 diabetes- without hyperglycemia on Jardiance 25 mg and Lantus 8 units at home -continue diabetic diet insulin sliding scale and Lantus , continue gabapentin for diabetic polyneuropathy #HF with preserved EF no acute exacerbation on Jardiance ,hctz and Lasix at home. #HTN -bp soft. Hold hctz, lasix , and Norvasc #PAD/CAD -no chest pain, continue asa, cilostazol. # mood disorder continue trazodone # difficulty with ambulation will obtain PT eval prior to discharge DVT prophylaxis- lovenox full code Pt will require continued inpatient hospitalization for management of arrhythmias will require expert consultation, also need PT eval for unsteady gait, monitoring of respiratory status and continued use of oxygen. Quality Stroke Does the patient have a stroke diagnosis?: No VTE Prior VTE?: No VTE Risk Level:: Medical - moderate - high VTE Device Contraindication: Treatment Not Indicated VTE Drug Contraindication: N/A - Med Ordered
--- NOTE | 2024-04-07 10:36 | MHC.CM.PN ---
IMM 04/07. This CM met with pt with the assistance of a associate manager. Pt reports living alone, states he receives [employer] services Monday-Monday. Pt primarily uses his electric scooter to get around but he also has a cane and a walker. Pt will need assistance with transportation back home. Education provided on HCP, pt declined at this time. PCP: [facility]
--- NOTE | 2024-04-07 10:41 | P.CONCA_ITS ---
History of Present Illness History of Present Illness Date of Service: 04/07/24 Requesting physician: Froylan Su Consult reason: other (SVT) Chief complaint: hypokalemia, MAT, pneumonia Narrative: I was consulted to see Albert in cardiology consultation today for recurrent SVT like events on the monitor. Noted episodes are narrow complex tachycardia with multiple short bursts. Patient is somnolent from he said he is being tired overnight and has had not much to sleep. He is completely asymptomatic as per the nursing staff with no symptoms of palpitations. There is no chest pain or shortness of breath with it. Denies any lightheadedness, syncope. Blood pressures remained stable. He came in with symptoms of worsening shortness of breath and was noted to be in hypoxemic respiratory failure, etiology is unclear. Although does not appear to be in heart failure. On admission he had SUSHILA and has been hydrated gently and his creatinine is improved. Also noted to be significantly hypokalemic on admission which has improved with potassium supplementation. Noted that he is on dual diuretics at home including furosemide and hydrochlorothiazide for unclear reason. Possible history of heart failure with reduced ejection fraction although last echocardiogram in the system shows preserved LV ejection fraction 54%. Do not have any last echocardiogram in the system prior to that. 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 Patient has underlying COPD as well as hypertension, peripheral vascular disease. Currently not having any obvious symptoms of heart failure with leg edema or abdominal distension. Review of Systems 2 Review of Systems: Yes Unobtainable due to mental status PMFSH Past Medical History Medical History Encounter for medication monitoring Depression Restless leg syndrome Peripheral neuropathy Personal history of nicotine dependence History of non-ST elevation myocardial infarction (NSTEMI) (~09/2018) History of cardiac arrest (~09/2018) Other and unspecified hyperlipidemia Essential hypertension Type 2 diabetes mellitus with unspecified complications Atherosclerotic cardiovascular disease Primary osteoarthritis, left hand Primary osteoarthritis, right hand Family History Family History Mother No problems noted. Mother No problems noted. 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 Meds Allergies Allergy/AdvReac Type Severity Reaction Status Date / Time No Known Allergies Allergy Verified 04/06/24 10:53 [No Known Allergies*] Active Medications: Current Medications Acetaminophen (Acetaminophen 325 Mg Tablet) 650 mg PO Q6H PRN PRN Reason: Pain, Mild (Pain Scale 1-3), fever or headache Albuterol/Ipratropium (Albuterol/Iprat 2.5/0.5mg 3 Ml Ampul.Rajwinder) 3 ml INHALE RQ4H WHILE AWAKE [facility] Last Admin: 04/07/24 07:56 Dose: 3 ml Aspirin (Aspirin Enteric Coated 81 Mg Tablet.) 81 mg PO BEDTIME FARSHAD Last Admin: 04/06/24 21:07 Dose: 81 mg Calcitriol (Calcitriol 0.25 Mcg Capsule) 0.25 mcg PO MOWEFR@0900 FARSHAD Calcium Carbonate (Calcium Carbonate 750 Mg Tab.Chew) 750 mg PO Q4H PRN PRN Reason: Heartburn Cilostazol (Cilostazol 100 Mg Tablet) 100 mg PO BID FARSHAD Last Admin: 04/07/24 08:48 Dose: Not Given Clonazepam (Clonazepam 0.5 Mg Tablet) 0.5 mg PO BEDTIME FARSHAD Last Admin: 04/06/24 21:06 Dose: 0.5 mg Clotrimazole (Clotrimazole 1 % Cream 15 Gm Tube) 1 appl TOPICAL BID FARSHAD; Protocol Last Admin: 04/07/24 08:37 Dose: 1 appl Ferrous Sulfate (Ferrous Sulfate 324 Mg Tablet.) 324 mg PO BID FARSHAD Last Admin: 04/07/24 08:48 Dose: Not Given Gabapentin (Gabapentin 600 Mg Tablet) 600 mg PO BEDTIME FARSHAD Last Admin: 04/06/24 21:07 Dose: 600 mg Glucose (Glucose Gel 15 Gm Gel..Gram.) 15 gm PO Q15M PRN; Protocol PRN Reason: per Hypoglycemia Standing Ord. Guaifenesin (Guaifenesin 200 Mg/10 Ml 10 Ml Liquid) 10 ml PO Q4H PRN PRN Reason: Cough Ceftriaxone Sodium 1 gm/ (Sodium Chloride) 50 mls @ 100 mls/hr IV Q24H FARSHAD Doxycycline Hyclate 100 mg/ (Sodium Chloride) 250 mls @ 166.67 mls/hr IV Q12H [facility] Last Infusion: 04/07/24 05:10 Dose: Infused Dextrose (D10) 250 mls @ 750 mls/hr IV Q15M PRN; Protocol PRN Reason: per Hypoglycemia Standing Ord. Insulin Glargine (Insulin Glargine,Hum.Rec.Anlog 100 Unit/Ml 10 Ml Vial) 6 unit SUBCUT DAILY [facility] Last Admin: 04/07/24 08:38 Dose: Not Given Insulin Human Lispro (Insulin Lispro 100 Unit/Ml 3 Ml Vial) 0 unit SUBCUT QIDACHS [facility]; Protocol Last Admin: 04/07/24 07:34 Dose: Not Given Magnesium Hydroxide (Milk Of Magnesia 30 Ml Oral.Susp) 30 ml PO DAILY PRN PRN Reason: Constipation Melatonin (Melatonin 3 Mg Tablet) 6 mg PO BEDTIME PRN PRN Reason: Insomnia Nicotine (Nicotine 7 Mg Patch.Td24) 7 mg TRANSDERMA Q24H [facility] Last Admin: 04/06/24 17:57 Dose: 7 mg Nicotine Polacrilex (Nicotine Polacrilex Lozenge 2 Mg Lozenge) 2 mg BUCCAL Q2H PRN PRN Reason: Smoking Cessation Pramipexole Dihydrochloride (Pramipexole Di-Hcl 1 Mg Tablet) 1 mg PO BEDTIME [facility] Last Admin: 04/06/24 21:19 Dose: 1 mg Pravastatin Sodium (Pravastatin Sodium 40 Mg Tablet) 40 mg PO BEDTIME [facility] Last Admin: 04/06/24 21:06 Dose: 40 mg Sodium Chloride (0.9 % Sodium Chloride Flush 3 Ml Syringe) 3 ml IVFLUSH QSHIFT [facility] Last Admin: 04/07/24 08:37 Dose: 3 ml Tramadol HCl (Tramadol Hcl 50 Mg Tablet) 50 mg PO TID PRN PRN Reason: Pain, Severe (Pain Scale 7-10) Trazodone HCl (Trazodone Hcl 100 Mg Tablet) 200 mg PO BEDTIME FARSHAD Last Admin: 04/06/24 21:06 Dose: 200 mg Home Medications ?Medication ?Instructions ?Recorded ?Confirmed ?Last Taken ?Type acetaminophen 500 mg tablet 500 mg PO Q6H PRN Pain 08/12/20 04/06/24 Unknown History (Tylenol Extra Strength) aspirin 81 mg tablet,delayed 81 mg PO BEDTIME 08/12/20 04/06/24 04/05/24 History release (Adult Low Dose Aspirin) ferrous sulfate 325 mg (65 mg 325 mg PO BID 08/12/20 04/06/24 04/05/24 History iron) tablet hydrochlorothiazide 12.5 mg tablet 12.5 mg PO DAILY 08/12/20 04/06/24 04/05/24 History trazodone 100 mg tablet 200 mg PO BEDTIME 08/12/20 04/06/24 04/05/24 History amlodipine 5 mg tablet 5 mg PO DAILY 11/19/20 04/06/24 04/05/24 History gabapentin 600 mg tablet 600 mg PO BEDTIME 11/19/20 04/06/24 04/05/24 History pravastatin 40 mg tablet 40 mg PO BEDTIME 11/19/20 04/06/24 04/05/24 History blood sugar diagnostic #10 ea 03/09/21 08/22/23 Unknown History pen needle, diabetic 31 gauge x #50 ea 03/09/21 08/22/23 Unknown History 12/22 pen needle, diabetic 31 gauge x #1,200 ea 12/17/21 08/22/23 Unknown History 02/21 (UltiCare Pen Needle) furosemide 20 mg tablet 40 mg PO DAILY 05/24/22 04/06/24 04/05/24 History pramipexole 1 mg tablet 1 mg PO BEDTIME 05/18/23 04/06/24 04/05/24 History calcitriol 0.25 mcg capsule 0.25 mcg PO MOWEFR@0900 04/06/24 04/06/24 04/05/24 History clonazepam 0.5 mg tablet 0.5 mg PO BEDTIME 04/06/24 04/06/24 04/05/24 History clotrimazole 1 % topical cream 1 appl topical BID 0604/06/24 04/05/24 History empagliflozin 25 mg tablet 25 mg PO DAILY 04/06/24 04/06/24 04/05/24 History (Jardiance) insulin glargine 100 unit/mL (3 8 unit subcut DAILY 04/06/24 04/06/24 04/05/24 History mL) subcutaneous pen (Lantus Solostar U-100 Insulin) nicotine (polacrilex) 2 mg buccal 2 mg buccal Q2H PRN Smoking 04/06/24 04/06/24 Unknown History lozenge Cessation nicotine 7 mg/24 hr daily 1 patch transdermal Q24H 04/06/24 04/06/24 04/05/24 History transdermal patch Physical Exam 2 Vital Signs: Vital Signs: Last Vital Signs Temp 97.3 F 04/07/24 08:00 Pulse 64 04/07/24 08:00 Resp 20 04/07/24 08:00 BP 107/58 L 04/07/24 08:00 Pulse Ox 93 04/07/24 08:00 O2 Del Method Nasal Cannula 04/07/24 08:00 O2 Flow Rate 2 04/07/24 08:00 BMI result Body Mass Index 27.4 Const: General: cooperative, comfortable, no acute distress and other (Somnolent) Nutritional Appearance: overweight HEENT: Head: Yes normocephalic and Yes atraumatic Neck: Neck: Yes trachea midline, Yes supple and Yes no JVD Resp: Effort & Inspection: normal respiratory effort Auscultation: no rales and diminished lung sounds Cardio: Jugular venous distension: no JVD Palpation: normal PMI Rate: r egular rate Rhythm: regular rhythm Heart sounds: S1 normal heart sound present, S2 normal heart sound present, no click, no gallops and no murmurs GI: Auscultation: normal bowel sounds Skin: General skin exam: no rashes or lesions noted Neuro: General: moves all extremities Extrem: General: Yes no clubbing, cyanosis or edema Objective Labs and Meds 04/07/24 06:26 04/07/24 06:26 Lab results: Laboratory Results - last 24 hr 04/06/24 04/06/24 04/06/24 11:45 11:45 12:21 WBC 8.7 RBC 4.33 L Hgb 15.1 Hct 43.4 MCV 100.2 H MCH 34.9 H MCHC 34.8 RDW 14.0 Plt Count 200 MPV 9.5 Immature Gran % (Auto) 0.6 H Neut % (Auto) 69.1 Lymph % (Auto) 21.4 [place] % (Auto) 7.1 Eos % (Auto) 1.3 Baso % (Auto) 0.5 Lymph # (Auto) 1.9 [place] # (Auto) 0.6 Eos # (Auto) 0.1 Baso # (Auto) 0.0 Abs Immat Gran (auto) 0.05 H Absolute Neuts (auto) 6.0 Absolute Nucleated RBC 0.000 Nucleated RBC % (auto) 0.0 PT 12.7 INR 1.0 APTT 31.2 Sodium 140 Potassium 2.9 L* Chloride 93 L Carbon Dioxide 36 H Anion Gap 14 BUN 22 H Creatinine 1.65 H Estim Creat Clear Calc 38.4 Estimated GFR 41 POC Glucose Random Glucose 188 H Lactic Acid 1.7 Calcium 9.6 Magnesium 1.7 1.8 Total Bilirubin 1.1 H Direct Bilirubin 0.4 AST 12 ALT 7 Alkaline Phosphatase 111 Troponin I High Sens 21.5 B-Natriuretic Peptide 65 Total Protein 6.8 Albumin 3.8 Procalcitonin 0.06 Urine Color Urine Appearance Urine pH Ur Specific Spencer Urine Protein Urine Glucose (UA) Urine Ketones Urine Blood Urine Nitrite Ur Leukocyte Esterase Urine RBC Urine WBC Ur Squamous Epith Cells Urine Bacteria Hyaline Casts Respiratory Panel Ortiz Adenovirus (Rapid PCR) B.pert (TEM-PCR) B.parapertussis DNA PCR C. pneumoniae DNA (PCR) Coronavirus OC43 (PCR) Coronavirus HKU1 (PCR) Coronavirus 229E (PCR) Coronavirus NL63 (PCR) Human Metapneumovir PCR Influenza A (RT-PCR) Influenza Type A (PCR) NEGATIVE Influenza B (RT-PCR) Influenza Type B (PCR) NEGATIVE M. pneumoniae (PCR) Parainfluenza 1 (PCR) Parainfluenza 2 (PCR) Parainfluenza 3 (PCR) Parainfluenza 4 (PCR) RSV (PCR) RSV RNA Qual (PCR) NEGATIVE Entero/Rhino (PCR) SARS-CoV-2 RNA (RT-PCR) NEGATIVE 04/06/24 04/06/24 04/06/24 13:35 15:50 17:39 WBC RBC Hgb Hct MCV MCH MCHC RDW Plt Count MPV Immature Gran % (Auto) Neut % (Auto) Lymph % (Auto) [place] % (Auto) Eos % (Auto) Baso % (Auto) Lymph # (Auto) [place] # (Auto) Eos # (Auto) Baso # (Auto) Abs Immat Gran (auto) Absolute Neuts (auto) Absolute Nucleated RBC Nucleated RBC % (auto) PT INR APTT Sodium Potassium Chloride Carbon Dioxide Anion Gap BUN Creatinine Estim Creat Clear Calc Estimated GFR POC Glucose 143 H Random Glucose Lactic Acid Calcium Magnesium Total Bilirubin Direct Bilirubin AST ALT Alkaline Phosphatase Troponin I High Sens B-Natriuretic Peptide Total Protein Albumin Procalcitonin Urine Color Yellow Urine Appearance Clear Urine pH 7.5 Ur Specific [place] 1.015 Urine Protein Negative Urine Glucose (UA) >=1000 H Urine Ketones Negative Urine Blood Negative Urine Nitrite Negative Ur Leukocyte Esterase Negative Urine RBC 0-2 Urine WBC 0-5 Ur Squamous Epith Cells 0-2 Urine Bacteria None Seen Hyaline Casts 0-2 Respiratory Panel Ortiz See Note Adenovirus (Rapid PCR) Not Detected B.pert (TEM-PCR) Not Detected B.parapertussis DNA PCR Not Detected C. pneumoniae DNA (PCR) Not Detected Coronavirus OC43 (PCR) Not Detected Coronavirus HKU1 (PCR) Not Detected Coronavirus 229E (PCR) Not Detected Coronavirus NL63 (PCR) Not Detected Human Metapneumovir PCR Not Detected Influenza A (RT-PCR) Not Detected Influenza Type A (PCR) Influenza B (RT-PCR) Not Detected Influenza Type B (PCR) M. pneumoniae (PCR) Not Detected Parainfluenza 1 (PCR) Not Detected Parainfluenza 2 (PCR) Not Detected Parainfluenza 3 (PCR) Not Detected Parainfluenza 4 (PCR) Not Detected RSV (PCR) Not Detected RSV RNA Qual (PCR) Entero/Rhino (PCR) Not Detected SARS-CoV-2 RNA (RT-PCR) Not Detected 04/06/24 04/06/24 04/07/24 20:05 20:45 06:26 WBC 9.1 RBC 4.12 L Hgb 14.3 Hct 41.5 L MCV 100.7 H MCH 34.7 H MCHC 34.5 RDW 14.1 Plt Count 196 MPV 9.6 Immature Gran % (Auto) 0.6 H Neut % (Auto) 67.8 Lymph % (Auto) 21.8 [place] % (Auto) 7.7 Eos % (Auto) 1.5 Baso % (Auto) 0.6 Lymph # (Auto) 2.0 [place] # (Auto) 0.7 Eos # (Auto) 0.1 Baso # (Auto) 0.1 Abs Immat Gran (auto) 0.05 H Absolute Neuts (auto) 6.2 Absolute Nucleated RBC 0.000 Nucleated RBC % (auto) 0.0 PT INR APTT Sodium 139 141 Potassium 3.7 D 3.5 Chloride 96 98 Carbon Dioxide 25 34 H Anion Gap 22 H 13 BUN 20 H 19 H Creatinine 1.50 H 1.32 Estim Creat Clear Calc 42.2 48.0 Estimated GFR 46 53 POC Glucose 205 H Random Glucose 191 H 100 Lactic Acid Calcium 9.1 9.6 Magnesium 1.9 Total Bilirubin Direct Bilirubin AST ALT Alkaline Phosphatase Troponin I High Sens B-Natriuretic Peptide Total Protein Albumin Procalcitonin Urine Color Urine Appearance Urine pH Ur Specific [place] Urine Protein Urine Glucose (UA) Urine Ketones Urine Blood Urine Nitrite Ur Leukocyte Esterase Urine RBC Urine WBC Ur Squamous Epith Cells Urine Bacteria Hyaline Casts Respiratory Panel Ortiz Adenovirus (Rapid PCR) B.pert (TEM-PCR) B.parapertussis DNA PCR C. pneumoniae DNA (PCR) Coronavirus OC43 (PCR) Coronavirus HKU1 (PCR) Coronavirus 229E (PCR) Coronavirus NL63 (PCR) Human Metapneumovir PCR Influenza A (RT-PCR) Influenza Type A (PCR) Influenza B (RT-PCR) Influenza Type B (PCR) M. pneumoniae (PCR) Parainfluenza 1 (PCR) Parainfluenza 2 (PCR) Parainfluenza 3 (PCR) Parainfluenza 4 (PCR) RSV (PCR) RSV RNA Qual (PCR) Entero/Rhino (PCR) SARS-CoV-2 RNA (RT-PCR) 04/07/24 07:10 WBC RBC Hgb Hct MCV MCH MCHC RDW Plt Count MPV Immature Gran % (Auto) Neut % (Auto) Lymph % (Auto) [place] % (Auto) Eos % (Auto) Baso % (Auto) Lymph # (Auto) [place] # (Auto) Eos # (Auto) Baso # (Auto) Abs Immat Gran (auto) Absolute Neuts (auto) Absolute Nucleated RBC Nucleated RBC % (auto) PT INR APTT Sodium Potassium Chloride Carbon Dioxide Anion Gap BUN Creatinine Estim Creat Clear Calc Estimated GFR POC Glucose 98 Random Glucose Lactic Acid Calcium Magnesium Total Bilirubin Direct Bilirubin AST ALT Alkaline Phosphatase Troponin I High Sens B-Natriuretic Peptide Total Protein Albumin Procalcitonin Urine Color Urine Appearance Urine pH Ur Specific [place] Urine Protein Urine Glucose (UA) Urine Ketones Urine Blood Urine Nitrite Ur Leukocyte Esterase Urine RBC Urine WBC Ur Squamous Epith Cells Urine Bacteria Hyaline Casts Respiratory Panel Ort[place] Adenovirus (Rapid PCR) B.pert (TEM-PCR) B.parapertussis DNA PCR C. pneumoniae DNA (PCR) Coronavirus OC43 (PCR) Coronavirus HKU1 (PCR) Coronavirus 229E (PCR) Coronavirus NL63 (PCR) Human Metapneumovir PCR Influenza A (RT-PCR) Influenza Type A (PCR) Influenza B (RT-PCR) Influenza Type B (PCR) M. pneumoniae (PCR) Parainfluenza 1 (PCR) Parainfluenza 2 (PCR) Parainfluenza 3 (PCR) Parainfluenza 4 (PCR) RSV (PCR) RSV RNA Qual (PCR) Entero/Rhino (PCR) SARS-CoV-2 RNA (RT-PCR) Imaging Radiologist's impression: Impressions Chest X-Ray 04/06/24 11:23 IMPRESSION: 1. Redemonstration of infiltrate/atelectasis at right lung base unchanged. 2. No pleural effusion. Venous Duplex 04/06/24 13:12 IMPRESSION: No DVT demonstrated in the bilateral lower extremities. Chest CT 04/06/24 16:29 IMPRESSION: 1. Right middle lobe consolidation, favored to represent atelectasis. 2. Streaky opacities in the bilateral lower lobes most consistent with subsegmental atelectasis. 3. The ascending aorta measures 4.2 cm in diameter. Fleischner guidelines were followed. Assessment and Plan (1) SVT (supraventricular tachycardia): Status: Acute Supraventricular tachycardia which has recurrent short bursts without any obvious symptoms from cardiac perspective. Currently not on any rate lowering medication would suggest to start metoprolol 12.5 mg q.6 hours. Avoidance of stimulants. Consider switching to Xopenex for inhaler therapy if needed. Please advise us if this does not control his arrhythmias will reconsult. Continue maintain electrolytes although they have been corrected and patient continues to have the arrhythmias and unlikely to be related to hypokalemia. Although I am not sure why he is on both loop diuretic as well as hydrochlorothiazide. Consider switching to a single agent. (2) Atherosclerotic cardiovascular disease: Status: Acute CAD without any obvious symptoms at this point time. Low-dose aspirin therapy is advised. Continue high-intensity statin therapy. Continue aggressive blood pressure control. Continue aggressive diabetes management goal hemoglobin A1c less than 7%. Will follow up if need be. Thank you for allowing me to partake in his care Procedures Date of Service Date of Service: 04/07/24
[2024-04-07 10:57] LABS: Glucose, Whole Blood 161 mg/dL (60-115)
[2024-04-07 11:29] LABS: Thyroid Stimulating Hormone 2.53 uIU/mL (0.32-4.0)
[2024-04-07] MEDS: Insulin Lispro 100 UNIT/ML 3 ML VIAL SUBCUT (12:27)
[2024-04-07] MEDS: Potassium Chloride ER 20 MEQ TAB.ER.PRT PO (12:27)
--- NOTE | 2024-04-07 13:33 | PC.NURSE ---
This RN called into room, pt stating he wants to go home. Park Worker at bedside. Pt stating he wants to leave, willing to sign AMA papers. Pt says he has not seen doctors and does not know what is going on. Pt reminded that he had a conversation earlier this morning with infusion pharmacist, hospitalist, and RN. This RN provided education on health status and plan of care, which includes cardiology consult and plan to increase metoprolol due to runs of SVT, as well as PT consult. Pt verbalizes understanding and agrees to remain in hospital for treatment and care. No concerns at this time.
[2024-04-07 16:04] LABS: Glucose, Whole Blood 150 mg/dL (60-115)
[2024-04-07] MEDS: guaiFENesin 200 MG/10 ML 10 ML LIQUID PO ×2 (16:47→20:42)
[2024-04-07] MEDS: Nicotine 7 MG PATCH.TD24 TRANSDERMA (16:47)
[2024-04-07] MEDS: Acetaminophen 325 MG TABLET 650 MG PO (16:47)
[2024-04-07 20:14] LABS: Glucose, Whole Blood 150 mg/dL (60-115)
[2024-04-07] MEDS: cilostazoL 100 MG TABLET PO (20:41)
[2024-04-07] MEDS: Pramipexole Di-HCL 1 MG TABLET PO (20:41)
[2024-04-07] MEDS: clonazePAM 0.5 MG TABLET PO (20:41)
[2024-04-07] MEDS: Metoprolol Tartrate 12.5 MG HALFTAB PO (20:41)
[2024-04-07] MEDS: Ferrous Sulfate 324 MG TABLET.DR PO (20:41)
[2024-04-07] MEDS: Pravastatin Sodium 40 MG TABLET PO (20:41)
[2024-04-07] MEDS: Aspirin Enteric Coated 81 MG TABLET.DR PO (20:42)
[2024-04-07] MEDS: Gabapentin 600 MG TABLET PO (20:42)
[2024-04-07] MEDS: traZODone HCL 100 MG TABLET 200 MG PO (20:42)
[2024-04-08] VITALS (10 sets, daily range): BP systolic 104–137; BP diastolic 57–65; PULSE 63–125; RESP 17–20; TEMP 36.3–36.8; O2SAT 90–99
[2024-04-08] MEDS: Doxycycline Hyclate 100 MG in 0.9 % Sodium Chloride 250 ML 166.67 MG IV ×2 (04:41→16:26)
--- NOTE | 2024-04-08 07:00 | CA_ITS ---
Transthoracic Echocardiogram Patient (Last, First, Middle): Albert Noe, Gender: Male Date of : 1950 Age: 74 Procedure Date: 04/08/2024 Procedure Type: Transthoracic Echocardiogram Location: [facility] – [place] Height: 167.64 cm Weight: 77.11 kg BSA: 1.87 m2 Heart Rate: bpm BP: 137 / 62 mmHg Mail Sorter: SONI Referring MD: Froylan Su MD Symptoms: arrythmias Study Quality: Adequate ECG Rhythm: Sinus with PACs and PVCs Conclusions: - The left ventricular systolic function is low normal. The visually estimated ejection fraction is between 50-55%. - The inferolateral wall and basal inferior segment are hypokinetic. - No obvious valvular pathology seen on this study. - There is mild dilatation of the ascending aorta measuring 4.40 cm. Findings Left Ventricle Normal left ventricular cavity size. The left ventricular systolic function is low normal. The visually estimated ejection fraction is between 50-55%. Diastolic function is normal for age. Moderate to severe focal hypertrophy of the basal septum. Wall Motion Rest Echo Findings The inferolateral wall and basal inferior segment are hypokinetic. Right Ventricle Normal right ventricular cavity size and systolic function. Atria Both atria are normal in size. Aortic Valve There is a normal trileaflet aortic valve. There is mild calcification of the aortic valve. There is no aortic valve stenosis. There is no aortic valve regurgitation. Mitral Valve The mitral valve appears normal. There is no mitral valve regurgitation. There is no mitral valve stenosis. Pulmonic Valve The pulmonic valve is likely normal. Tricuspid Valve There is trace tricuspid valve regurgitation. There is no evidence of pulmonary hypertension. Great Vessels There is mild dilatation of the ascending aorta measuring 4.40 cm. Venous The inferior vena cava is mildly dilated and collapses less than 50% with inspiration. Pericardium/Pleural There is no evidence of pericardial effusion. Prior Study Comparison No significant change compared to prior study dated: 06/23/2023. Wall motion findings noted before. Recommendations, Care & Conclusions No obvious valvular pathology seen on this study. Measurements 2D Linear Measurements IVSd: 0.75 0.6-0.9/0.6-1.0 cm LVIDd: 4.22 3.9-5.3/4.2-5.9 cm LVIDd Index: 2.26 2.4-3.2/2.2-3.1 cm/m2 LVIDs: 3.15 2.0-3.6 cm LVPWd: 0.94 0.7-1.1 cm LA Diam: 2.70 2.7-3.8/3.0-4.0 cm LAIDs Index: 1.44 1.5-2.3 cm/m2 LV Mass: 136.96 67-162/88-224 g LV Mass Index: 73.24 43-95/49-115 g/m2 LVOT Diam: 2.40 3.0+(-)1.3 cm 2D Systolic Function EF 4C: 51.20 >55% EF 2C: 67.30 >55% EF BiP: 58.50 >55% Mitral Valve MV Pk E: 1.18 MV PK A: 1.11 MV Decel Time: 240.00 E/A: 1.10 E'Lateral: 9.66 E'Medial: 5.42 E/E' Med: 21.80 E/E' Lat: 12.20 PHT: 70.00 MVA PHT: 3.14 Decel [place]: 5.19 Aortic Valve AoV Pk Binh: 0.96 AoV Pk Grad: 4.00 OSMAN: 3.85 LVOT LVOT Pk Binh: 0.82 LVOT Pk Grad: 3.00 LVOT Diam: 2.40 LVOT Area: 4.52 Diastolic Function MV Pk E: 1.18 MV Pk A: 1.11 E/A: 1.10 E'Medial: 5.42 E/E' Med: 21.80 E' Laterial: 9.66 E/E' Lat: 12.20 Right Ventricle TAPSE (mm): 23.50 TVS' Binh: 11.00 Tricuspid Valve TR Pk Binh: 1.53 TR Pk Grad: 9.00 RA Press: 15.00 RVSP: 24.00 Great Vessels Aorta Sinus of Valsalva: 4.21 2.0-3.[address] [place]: 3.56 1.7-3.4 cm Ao Asc: 4.40 2.1-3.4 cm Updated in Other Vendor System with Status of Final Armaan Almazan MD electronically signed on 04/08/2024 10:39:12 AM with status of Final
[2024-04-08] MEDS: Albuterol/Iprat 2.5/0.5MG 3 ML AMPUL.NEB INHALE ×4 (07:35→19:39)
[2024-04-08 08:13] LABS: Glucose, Whole Blood 101 mg/dL (60-115)
[2024-04-08] MEDS: calcitrioL 0.25 MCG CAPSULE PO (09:45)
[2024-04-08] MEDS: Ferrous Sulfate 324 MG TABLET.DR PO ×2 (09:45→22:11)
[2024-04-08] MEDS: guaiFENesin 200 MG/10 ML 10 ML LIQUID PO ×3 (09:45→22:11)
[2024-04-08] MEDS: Insulin Glargine,Hum.rec.anlog 100 UNIT/ML 10 ML VIAL 6 UNIT SUBCUT (09:45)
[2024-04-08] MEDS: cilostazoL 100 MG TABLET PO ×2 (09:45→22:12)
[2024-04-08] MEDS: Metoprolol Tartrate 12.5 MG HALFTAB PO ×3 (09:45→22:11)
[2024-04-08] MEDS: 0.9 % Sodium Chloride Flush 3 ML SYRINGE IVFLUSH ×3 (09:46→22:12)
[2024-04-08] MEDS: Clotrimazole 1 % Cream 15 GM TUBE 1 APPL TOPICAL (10:46)
--- NOTE | 2024-04-08 11:00 | MHC.CM.PN ---
Per MD rounds discharge is anticipated 1-2 days. Patient with SVT, Metroprolol titration. Patient is planned for an Echo today. DP Home with resumption of [facility] services. Patient will need assist with transportation home.
[2024-04-08 11:53] LABS: Anion Gap 9 (12-20); Blood Urea Nitrogen 15 mg/dL (9-16); Calcium 9.6 mg/dL (8.4-10.2); Carbon Dioxide 33 mmol/L (22-29); Chloride 101 mmol/L (96-108); Creatinine Clr Calc Pharmacy 52.3; Estimated Glomerular Filt Rate 59; Glucose Random 146 mg/dL (60-115); Magnesium 1.7 mg/dL (1.6-2.6); Potassium 3.7 mmol/L (3.3-5.1); Sodium 139 mmol/L (135-145)
[2024-04-08 11:59] LABS: Glucose, Whole Blood 130 mg/dL (60-115)
[2024-04-08 12:07] LABS: Procalcitonin 0.08 ng/mL
--- NOTE | 2024-04-08 13:54 | HO.PM.IMPN ---
Subjective Subjective Date of Service: 04/08/24 Interval History: This history was taken in Khmer from the patient. Dyspnea improving C/o some palpitations; continues to have runs of SVT in 120s Review of Systems Review of Systems: Yes all other systems are reviewed and are negative Physical Exam Vital Signs: Vital Signs: Last Vital Signs Temp 97.7 F 04/08/24 11:23 Pulse 125 H 04/08/24 11:28 Resp 18 04/08/24 11:25 BP 115/65 04/08/24 11:23 Pulse Ox 93 04/08/24 11:28 O2 Del Method Nasal Cannula 04/08/24 11:23 O2 Flow Rate 2 04/08/24 11:23 BMI result Body Mass Index 27.4 Gen: in no acute distress HEENT: sclera anicteric, moist mucus membranes Neck: supple Lungs: diminished Heart: regular rate and rhythm, no murmurs Abd: soft, non-tender, non-distended Ext: no edema Skin: warm/well-perfused Neuro: alert and oriented x3, no focal findings Psych: appropriate affect Objective Data Active Medications Acetaminophen (Acetaminophen 325 Mg Tablet) 650 mg PO Q6H PRN PRN Reason: Pain, Mild (Pain Scale 1-3), fever or headache Last Admin: 04/07/24 16:47 Dose: 650 mg Documented By: YANICK Albuterol/Ipratropium (Albuterol/Iprat 2.5/0.5mg 3 Ml Ampul.Neb) 3 ml INHALE RQ4H WHILE AWAKE [facility] Last Admin: 04/08/24 11:24 Dose: 3 ml Documented By: JOHANNY Aspirin (Aspirin Enteric Coated 81 Mg Tablet.Dr) 81 mg PO BEDTIME [facility] Last Admin: 04/07/24 20:42 Dose: 81 mg Documented By: JESSE Calcitriol (Calcitriol 0.25 Mcg Capsule) 0.25 mcg PO MOWEFR@0900 [facility] Last Admin: 04/08/24 09:45 Dose: 0.25 mcg Documented By: MARGARITO Calcium Carbonate (Calcium Carbonate 750 Mg Tab.Chew) 750 mg PO Q4H PRN PRN Reason: Heartburn Cilostazol (Cilostazol 100 Mg Tablet) 100 mg PO BID [facility] Last Admin: 04/08/24 09:45 Dose: 100 mg Documented By: MARGARITO Clonazepam (Clonazepam 0.5 Mg Tablet) 0.5 mg PO BEDTIME [facility] Last Admin: 04/07/24 20:41 Dose: 0.5 mg Documented By: JESSE Clotrimazole (Clotrimazole 1 % Cream 15 Gm Tube) 1 appl TOPICAL BID [facility]; Protocol Last Admin: 04/08/24 10:46 Dose: 1 appl Documented By: MARGARITO Ferrous Sulfate (Ferrous Sulfate 324 Mg Tablet.Dr) 324 mg PO BID [facility] Last Admin: 04/08/24 09:45 Dose: 324 mg Documented By: MARGARITO Gabapentin (Gabapentin 600 Mg Tablet) 600 mg PO BEDTIME [facility] Last Admin: 04/07/24 20:42 Dose: 600 mg Documented By: JESSE Glucose (Glucose Gel 15 Gm Gel..Gram.) 15 gm PO Q15M PRN; Protocol PRN Reason: per Hypoglycemia Standing Ord. Guaifenesin (Guaifenesin 200 Mg/10 Ml 10 Ml Liquid) 10 ml PO TID [facility] Last Admin: 04/08/24 09:45 Dose: 10 ml Documented By: MARGARITO Doxycycline Hyclate 100 mg/ (Sodium Chloride) 250 mls @ 166.67 mls/hr IV Q12H [facility] Last Infusion: 04/08/24 06:27 Dose: Infused Documented By: CRYSTAL-KYLAH Dextrose (D10) 250 mls @ 750 mls/hr IV Q15M PRN; Protocol PRN Reason: per Hypoglycemia Standing Ord. Insulin Glargine (Insulin Glargine,Hum.Rec.Anlog 100 Unit/Ml 10 Ml Vial) 6 unit SUBCUT DAILY [facility] Last Admin: 04/08/24 09:45 Dose: 6 unit Documented By: MARGARITO Insulin Human Lispro (Insulin Lispro 100 Unit/Ml 3 Ml Vial) 0 unit SUBCUT QIDACHS [facility]; Protocol Last Admin: 04/08/24 12:06 Dose: Not Given Documented By: MARGARITO Non-Admin Reason: No Insulin Coverage Magnesium Hydroxide (Milk Of Magnesia 30 Ml Oral.Susp) 30 ml PO DAILY PRN PRN Reason: Constipation Melatonin (Melatonin 3 Mg Tablet) 6 mg PO BEDTIME PRN PRN Reason: Insomnia Metoprolol Tartrate (Metoprolol Tartrate 12.5 Mg Halftab) 12.5 mg PO Q6H [facility]; Protocol Nicotine (Nicotine 7 Mg Patch.Td24) 7 mg TRANSDERMA Q24H [facility] Last Admin: 04/07/24 16:47 Dose: 7 mg Documented By: YANICK Nicotine Polacrilex (Nicotine Polacrilex Lozenge 2 Mg Lozenge) 2 mg BUCCAL Q2H PRN PRN Reason: Smoking Cessation Pramipexole Dihydrochloride (Pramipexole Di-Hcl 1 Mg Tablet) 1 mg PO BEDTIME [facility] Last Admin: 04/07/24 20:41 Dose: 1 mg Documented By: JESSE Pravastatin Sodium (Pravastatin Sodium 40 Mg Tablet) 40 mg PO BEDTIME [facility] Last Admin: 04/07/24 20:41 Dose: 40 mg Documented By: JESSE Sodium Chloride (0.9 % Sodium Chloride Flush 3 Ml Syringe) 3 ml IVFLUSH QSHIFT [facility] Last Admin: 04/08/24 09:46 Dose: 3 ml Documented By: MARGARITO Tramadol HCl (Tramadol Hcl 50 Mg Tablet) 50 mg PO TID PRN PRN Reason: Pain, Severe (Pain Scale 7-10) Trazodone HCl (Trazodone Hcl 100 Mg Tablet) 200 mg PO BEDTIME [facility] Last Admin: 04/07/24 20:42 Dose: 200 mg Documented By: JESSE Labs 04/07/24 06:26 04/08/24 10:48 Labs: Laboratory Results - last 24 hr 04/07/24 04/07/24 04/08/24 16:00 20:10 07:53 Anion Gap Estim Creat Clear Calc Estimated GFR POC Glucose 150 H 150 H 101 Random Glucose Calcium Magnesium Procalcitonin 04/08/24 04/08/24 10:48 11:51 Anion Gap 9 L Estim Creat Clear Calc 52.3 Estimated GFR 59 POC Glucose 130 H Random Glucose 146 H Calcium 9.6 Magnesium 1.7 Procalcitonin 0.08 Microbiology Microbiology Results: Microbiology 04/07/24 11:45 Gram Stain - Final Sputum - Expectorated Sputum Culture - Preliminary Culture in progress. 04/06/24 12:21 Blood Culture - Preliminary Blood - Venous No growth after 24 hours. 04/06/24 12:20 Blood Culture - Preliminary Blood - Venous No growth after 24 hours. Assessment and Plan (1) Hypokalemia: Status: Acute (2) SVT (supraventricular tachycardia): Status: Acute (3) SUSHILA (acute kidney injury): Status: Acute Plan d3 74yo M with CAD, HTN, DM + polyneuropathy, HFpEF 74 year old male with history of CAD, HTN, DM, diabetic polyneuropathy, and HFrEF admitted for pneumonia wtih SVT presented with cough + dyspnea found to have hypoxia + SVT AHRF - CT chest shows likely atelecatsis; PCT remains low; respiratory viral panel negative. Suspect chronic atelectasis + acute bronchitis, continue doxycycline 04/06-04/09 + nebs. wean O2 as tolerated SVT - TTE done today showing: - The left ventricular systolic function is low normal. The visually estimated ejection fraction is between 50-55%. - The inferolateral wall and basal inferior segment are hypokinetic. - No obvious valvular pathology seen on this study. - There is mild dilatation of the ascending aorta measuring 4.40 cm. - Cardiology consulted, will increase metoprolol tartrateto 12.5 mg q6h and continue tele monitoring hypoK - repleted, likely was due to excess diuretics [was on furosemide + HCTZ, discontinued] chronic HFpEF - diuretics held as below SUSHILA/CKD3 - improved with IV fluids + holding diuretics PAD CAD - continue ASA, cilostazol, statin DM2 - continue Lantus + correction-dose lispro tobacco abuse disorder - continue NRT mood disorder - continue trazodone, clonazepam VTE ppx - LMWH dispo - PT eval: home with VNA In my clinical judgment, the patient requires continued inpatient hospitalization for the following reasons: SVT, hypoxia Total time managing care of this patient today: 40 minutes. Quality Stroke Does the patient have a stroke diagnosis?: No VTE Prior VTE?: No VTE Risk Level:: Medical - moderate - high VTE Device Contraindication: Treatment Not Indicated VTE Drug Contraindication: N/A - Med Ordered
[2024-04-08 16:24] LABS: Glucose, Whole Blood 136 mg/dL (60-115)
[2024-04-08] MEDS: Nicotine 7 MG PATCH.TD24 TRANSDERMA (16:25)
[2024-04-08 20:55] LABS: Glucose, Whole Blood 138 mg/dL (60-115)
[2024-04-08] MEDS: traZODone HCL 100 MG TABLET 200 MG PO (22:11)
[2024-04-08] MEDS: Gabapentin 600 MG TABLET PO (22:12)
[2024-04-08] MEDS: Aspirin Enteric Coated 81 MG TABLET.DR PO (22:12)
[2024-04-08] MEDS: Pramipexole Di-HCL 1 MG TABLET PO (22:12)
[2024-04-08] MEDS: clonazePAM 0.5 MG TABLET PO (22:12)
[2024-04-08] MEDS: Pravastatin Sodium 40 MG TABLET PO (22:12)
[2024-04-09] VITALS (10 sets, daily range): BP systolic 115–145; BP diastolic 59–78; PULSE 64–73; RESP 18–21; TEMP 36.5–37.1; O2SAT 89–98
[2024-04-09] MEDS: Metoprolol Tartrate 12.5 MG HALFTAB PO ×2 (04:39→09:19)
[2024-04-09] MEDS: Doxycycline Hyclate 100 MG in 0.9 % Sodium Chloride 250 ML 166.67 MG IV (04:40)
[2024-04-09] MEDS: Albuterol/Iprat 2.5/0.5MG 3 ML AMPUL.NEB INHALE ×3 (07:38→15:36)
[2024-04-09 08:07] LABS: Glucose, Whole Blood 106 mg/dL (60-115)
[2024-04-09] MEDS: Insulin Glargine,Hum.rec.anlog 100 UNIT/ML 10 ML VIAL 6 UNIT SUBCUT (09:18)
[2024-04-09] MEDS: guaiFENesin 200 MG/10 ML 10 ML LIQUID PO ×3 (09:19→21:41)
[2024-04-09] MEDS: cilostazoL 100 MG TABLET PO ×2 (09:19→21:40)
[2024-04-09] MEDS: 0.9 % Sodium Chloride Flush 3 ML SYRINGE IVFLUSH ×3 (09:19→21:42)
[2024-04-09] MEDS: Ferrous Sulfate 324 MG TABLET.DR PO ×2 (09:19→21:39)
[2024-04-09 11:30] LABS: Glucose, Whole Blood 154 mg/dL (60-115)
[2024-04-09] MEDS: Insulin Lispro 100 UNIT/ML 3 ML VIAL SUBCUT (11:37)
[2024-04-09] MEDS: Clotrimazole 1 % Cream 15 GM TUBE 1 APPL TOPICAL ×2 (11:37→21:46)
--- NOTE | 2024-04-09 12:33 | P.PNIM_ITS ---
Subjective Subjective Date of Service: 04/09/24 Interval History: This history was taken in Bulgarian from the patient. tried to leave the hospital yesterday evening; sitter placed denies any chest pain or palpitations or dyspnea on telemetry, still having a few runs of SVT in the 120s Review of Systems Review of Systems: Yes all other systems are reviewed and are negative Physical Exam 2 Vital Signs: Vital Signs: Last Vital Signs Temp 97.7 F 04/09/24 12:00 Pulse 69 04/09/24 12:00 Resp 20 04/09/24 12:00 BP 123/60 04/09/24 12:00 Pulse Ox 91 L 04/09/24 12:00 O2 Del Method Room Air 04/09/24 12:00 O2 Flow Rate 2 04/08/24 11:23 BMI result Body Mass Index 27.4 Gen: in no acute distress HEENT: sclera anicteric, moist mucus membranes Neck: supple Lungs: diminished Heart: regular rate and rhythm, no murmurs Abd: soft, non-tender, non-distended Ext: no edema Skin: warm/well-perfused Neuro: alert and oriented x3, no focal findings Psych: appropriate affect Objective Data Active Medications Acetaminophen (Acetaminophen 325 Mg Tablet) 650 mg PO Q6H PRN PRN Reason: Pain, Mild (Pain Scale 1-3), fever or headache Last Admin: 04/07/24 16:47 Dose: 650 mg Documented By: YANICK Albuterol/Ipratropium (Albuterol/Iprat 2.5/0.5mg 3 Ml Ampul.Neb) 3 ml INHALE RQ4H WHILE AWAKE [facility] Last Admin: 04/09/24 11:23 Dose: 3 ml Documented By: BON Aspirin (Aspirin Enteric Coated 81 Mg Tablet.Dr) 81 mg PO BEDTIME [facility] Last Admin: 04/08/24 22:12 Dose: 81 mg Documented By: MENA Calcitriol (Calcitriol 0.25 Mcg Capsule) 0.25 mcg PO MOWEFR@0900 [facility] Last Admin: 04/08/24 09:45 Dose: 0.25 mcg Documented By: MARGARITO Calcium Carbonate (Calcium Carbonate 750 Mg Tab.Chew) 750 mg PO Q4H PRN PRN Reason: Heartburn Cilostazol (Cilostazol 100 Mg Tablet) 100 mg PO BID [facility] Last Admin: 04/09/24 09:19 Dose: 100 mg Documented By: SVETA Clonazepam (Clonazepam 0.5 Mg Tablet) 0.5 mg PO BEDTIME [facility] Last Admin: 04/08/24 22:12 Dose: 0.5 mg Documented By: MENA Clotrimazole (Clotrimazole 1 % Cream 15 Gm Tube) 1 appl TOPICAL BID [facility]; Protocol Last Admin: 04/09/24 11:37 Dose: 1 appl Documented By: SVETA Ferrous Sulfate (Ferrous Sulfate 324 Mg Tablet.Dr) 324 mg PO BID [facility] Last Admin: 04/09/24 09:19 Dose: 324 mg Documented By: SVETA Gabapentin (Gabapentin 600 Mg Tablet) 600 mg PO BEDTIME [facility] Last Admin: 04/08/24 22:12 Dose: 600 mg Documented By: MENA Glucose (Glucose Gel 15 Gm Gel..Gram.) 15 gm PO Q15M PRN; Protocol PRN Reason: per Hypoglycemia Standing Ord. Guaifenesin (Guaifenesin 200 Mg/10 Ml 10 Ml Liquid) 10 ml PO TID [facility] Last Admin: 04/09/24 09:19 Dose: 10 ml Documented By: SVETA Doxycycline Hyclate 100 mg/ (Sodium Chloride) 250 mls @ 166.67 mls/hr IV Q12H [facility] Last Infusion: 04/09/24 06:14 Dose: Infused Documented By: PAULA Dextrose (D10) 250 mls @ 750 mls/hr IV Q15M PRN; Protocol PRN Reason: per Hypoglycemia Standing Ord. Insulin Glargine (Insulin Glargine,Hum.Rec.Anlog 100 Unit/Ml 10 Ml Vial) 6 unit SUBCUT DAILY [facility] Last Admin: 04/09/24 09:18 Dose: 6 unit Documented By: SVETA Insulin Human Lispro (Insulin Lispro 100 Unit/Ml 3 Ml Vial) 0 unit SUBCUT QIDACHS [facility]; Protocol Last Admin: 04/09/24 11:37 Dose: 2 unit Documented By: SVETA Magnesium Hydroxide (Milk Of Magnesia 30 Ml Oral.Susp) 30 ml PO DAILY PRN PRN Reason: Constipation Melatonin (Melatonin 3 Mg Tablet) 6 mg PO BEDTIME PRN PRN Reason: Insomnia Metoprolol Tartrate (Metoprolol Tartrate 12.5 Mg Halftab) 12.5 mg PO Q6H [facility]; Protocol Stop: 04/09/24 14:59 Last Admin: 04/09/24 09:19 Dose: 12.5 mg Documented By: SVETA Metoprolol Tartrate (Metoprolol Tartrate 25 Mg Tablet) 25 mg PO Q6H [facility]; Protocol Nicotine (Nicotine 7 Mg Patch.Td24) 7 mg TRANSDERMA Q24H [facility] Last Admin: 04/08/24 16:25 Dose: 7 mg Documented By: MARGARITO Nicotine Polacrilex (Nicotine Polacrilex Lozenge 2 Mg Lozenge) 2 mg BUCCAL Q2H PRN PRN Reason: Smoking Cessation Pramipexole Dihydrochloride (Pramipexole Di-Hcl 1 Mg Tablet) 1 mg PO BEDTIME [facility] Last Admin: 04/08/24 22:12 Dose: 1 mg Documented By: MENA Pravastatin Sodium (Pravastatin Sodium 40 Mg Tablet) 40 mg PO BEDTIME [facility] Last Admin: 04/08/24 22:12 Dose: 40 mg Documented By: MENA Sodium Chloride (0.9 % Sodium Chloride Flush 3 Ml Syringe) 3 ml IVFLUSH QSHIFT [facility] Last Admin: 04/09/24 09:19 Dose: 3 ml Documented By: SVETA Tramadol HCl (Tramadol Hcl 50 Mg Tablet) 50 mg PO TID PRN PRN Reason: Pain, Severe (Pain Scale 7-10) Trazodone HCl (Trazodone Hcl 100 Mg Tablet) 200 mg PO BEDTIME [facility] Last Admin: 04/08/24 22:11 Dose: 200 mg Documented By: MENA Labs 04/07/24 06:26 04/08/24 10:48 Labs: Laboratory Results - last 24 hr 04/08/24 04/08/24 04/09/24 16:15 20:52 08:03 POC Glucose 136 H 138 H 106 04/09/24 11:11 POC Glucose 154 H Microbiology Microbiology Results: Microbiology 04/07/24 11:45 Gram Stain - Final Sputum - Expectorated Sputum Culture - Final 04/06/24 12:21 Blood Culture - Preliminary Blood - Venous No growth after 48 hours. 04/06/24 12:20 Blood Culture - Preliminary Blood - Venous No growth after 48 hours. Assessment and Plan (1) Hypokalemia: Status: Acute (2) SVT (supraventricular tachycardia): Status: Acute (3) SUSHILA (acute kidney injury): Status: Acute Plan d4 74 year old male with history of CAD, HTN, DM, diabetic polyneuropathy, and HFrEF presented with cough + dyspnea found to have hypoxia + SVT AHRF - CT chest shows likely atelecatsis; PCT remains low; respiratory viral panel negative. Suspect chronic atelectasis + acute bronchitis, continue doxycycline 04/06-04/09 + nebs. Weaned off of O2 SVT - TTE done 04/08: - The left ventricular systolic function is low normal. The visually estimated ejection fraction is between 50-55%. - The inferolateral wall and basal inferior segment are hypokinetic. - No obvious valvular pathology seen on this study. - There is mild dilatation of the ascending aorta measuring 4.40 cm. - Cardiology consulted, will increase metoprolol tartrate further to 25 mg q6h and continue tele monitoring hypoK - repleted, likely was due to excess diuretics [was on furosemide + HCTZ, discontinued] chronic HFpEF - diuretics held as below SUSHILA/CKD3 - improved with IV fluids + holding diuretics PAD CAD - continue ASA, cilostazol, statin DM2 - continue Lantus + correction-dose lispro tobacco abuse disorder - continue NRT mood disorder - continue trazodone, clonazepam capacity determination - will consult Psychiatry, keep sitter for now though pt is now calm and has no thoughts of leaving hospital VTE ppx - LMWH dispo - PT eval: home with VNA In my clinical judgment, the patient requires continued inpatient hospitalization for the following reasons: SVT Total time managing care of this patient today: 40 minutes. Quality Stroke Does the patient have a stroke diagnosis?: No VTE Prior VTE?: No VTE Risk Level:: Medical - moderate - high VTE Device Contraindication: Treatment Not Indicated VTE Drug Contraindication: N/A - Med Ordered
[2024-04-09] MEDS: Nicotine 7 MG PATCH.TD24 TRANSDERMA (16:26)
[2024-04-09] MEDS: Doxycycline Monohydrate 100 MG CAPSULE PO (16:27)
[2024-04-09] MEDS: Metoprolol Tartrate 25 MG TABLET PO ×2 (16:28→21:40)
[2024-04-09 16:54] LABS: Glucose, Whole Blood 110 mg/dL (60-115)
--- NOTE | 2024-04-09 17:28 | PM.PSYCN ---
History of Present Illness Date of Service: 04/09/2024 Chief Complaint: hypokalemia, MAT, pneumonia Reason for Consult: capacity Discussed with referring provider: Yes Sources of Information: patient interviewed, chart reviewed and crisis/core team assessment reviewed HPI Narrative: Mr. Baeza is a 74 year-old male was sent from urgent care to ED due to productive cough and sob. Chest XR did not show significant difference in recent XR, however, pt admitted for tx of pneumonia. Pt also found to have SVT and on telemetry with cardiology consult. Pt day before demanded to leave and it was questionable whether pt fully understood medical condition and rational for recommendation for longer hospitalization. Pt seen in his room. Interview conducted in Korean. Pt is pleasant and cooperative. He reports prior to coming here he was coughing and felt heart pounding. He reports he is feeling better and is bored here in the hospital and wants to go back home. When asked about his understanding for medical admission, pt continues to report that he feels better. When asked about his understanding of his palpitations, pt states I'm fine, I feel better. He also reports he has not been told, which it has not been the case. This scientific technical writer explained recommendation of cardiology to monitor supra ventricular tachycardia and need to get better control of his heart rate with medications while in the hospital. At which point he appeared to agree to stay in the hospital, however, suspect his ability to retain this information may be poor. FORMERLY [facility] Medical History Encounter for medication monitoring Depression Restless leg syndrome Peripheral neuropathy Personal history of nicotine dependence History of non-ST elevation myocardial infarction (NSTEMI) (~09/2018) History of cardiac arrest (~09/2018) Other and unspecified hyperlipidemia Essential hypertension Type 2 diabetes mellitus with unspecified complications Atherosclerotic cardiovascular disease Primary osteoarthritis, left hand Primary osteoarthritis, right hand Surgical History History of epidermal inclusion cyst excision (~07/2021) History of hand surgery (~03/2015) History of cataract surgery (~2017) History of cardiac catheterization (~10/2018) Diagnostics Vital Signs (24Hr): Vital Signs - 24 hr 04/08/24 19:39 04/08/24 20:00 04/09/24 00:00 Temperature 98.2 F 97.8 F Pulse Rate 80 73 68 Respiratory Rate 18 20 18 Blood Pressure 119/60 145/78 H Pulse Oximetry 99 98 Oxygen Delivery Method Room Air Room Air 04/09/24 04:00 04/09/24 07:39 04/09/24 08:00 Temperature 98.1 F 98.7 F Pulse Rate 67 65 64 Respiratory Rate 18 18 20 Blood Pressure 126/61 123/66 Pulse Oximetry 92 91 L Oxygen Delivery Method Room Air 04/09/24 11:24 04/09/24 12:00 04/09/24 15:39 Temperature 97.7 F Pulse Rate 69 69 69 Respiratory Rate 20 20 20 Blood Pressure 123/60 Pulse Oximetry 91 L Oxygen Delivery Method Room Air 04/09/24 16:00 04/09/24 16:28 Temperature 97.9 F Pulse Rate 69 73 Respiratory Rate 20 Blood Pressure 131/72 115/59 L Pulse Oximetry 98 Oxygen Delivery Method Room Air BMI result Body Mass Index 27.4 Labs 04/07/24 06:26 04/10/24 09:06 Labs: Laboratory Results - last 48 hr 04/07/24 04/08/24 04/08/24 20:10 07:53 10:48 Sodium 139 Potassium 3.7 Chloride 101 Carbon Dioxide 33 H Anion Gap 9 L BUN 15 Creatinine 1.21 Estim Creat Clear Calc 52.3 Estimated GFR 59 POC Glucose 150 H 101 Random Glucose 146 H Calcium 9.6 Magnesium 1.7 Procalcitonin 0.08 04/08/24 04/08/24 04/08/24 11:51 16:15 20:52 Sodium Potassium Chloride Carbon Dioxide Anion Gap BUN Creatinine Estim Creat Clear Calc Estimated GFR POC Glucose 130 H 136 H 138 H Random Glucose Calcium Magnesium Procalcitonin 04/09/24 04/09/24 04/09/24 08:03 11:11 16:50 Sodium Potassium Chloride Carbon Dioxide Anion Gap BUN Creatinine Estim Creat Clear Calc Estimated GFR POC Glucose 106 154 H 110 Random Glucose Calcium Magnesium Procalcitonin Imaging Radiology Impressions: ITS Impressions Chest X-Ray 04/06/24 11:23 IMPRESSION: 1. Redemonstration of infiltrate/atelectasis at right lung base unchanged. 2. No pleural effusion. Venous Duplex 04/06/24 13:12 IMPRESSION: No DVT demonstrated in the bilateral lower extremities. Chest CT 04/06/24 16:29 IMPRESSION: 1. Right middle lobe consolidation, favored to represent atelectasis. 2. Streaky opacities in the bilateral lower lobes most consistent with subsegmental atelectasis. 3. The ascending aorta measures 4.2 cm in diameter. Fleischner guidelines were followed. Mental Status Exam Mental Status Exam Narrative: Appearance: wearing hospital gown, fair hygiene, in NAD Behavior: cooperative and pleasant Psychomotor: no agitation or retardation noted Speech: clear, normal rate/rhythm, volume, spontaneous TP: mostly goal oriented wanting to go home Mood: okay Affect: congruent, brightens up SI: none HI:none VH/AH: none Delusions: none Alert, not oriented to month (May), not to situation. Medications Medications Current Medications Acetaminophen (Acetaminophen 325 Mg Tablet) 650 mg PO Q6H PRN PRN Reason: Pain, Mild (Pain Scale 1-3), fever or headache Last Admin: 04/07/24 16:47 Dose: 650 mg Albuterol/Ipratropium (Albuterol/Iprat 2.5/0.5mg 3 Ml Ampul.Neb) 3 ml INHALE RQ4H WHILE AWAKE [facility] Last Admin: 04/09/24 15:36 Dose: 3 ml Aspirin (Aspirin Enteric Coated 81 Mg Tablet.Dr) 81 mg PO BEDTIME [facility] Last Admin: 04/08/24 22:12 Dose: 81 mg Calcitriol (Calcitriol 0.25 Mcg Capsule) 0.25 mcg PO MOWEFR@0900 [facility] Last Admin: 04/08/24 09:45 Dose: 0.25 mcg Calcium Carbonate (Calcium Carbonate 750 Mg Tab.Chew) 750 mg PO Q4H PRN PRN Reason: Heartburn Cilostazol (Cilostazol 100 Mg Tablet) 100 mg PO BID [facility] Last Admin: 04/09/24 09:19 Dose: 100 mg Clonazepam (Clonazepam 0.5 Mg Tablet) 0.5 mg PO BEDTIME [facility] Last Admin: 04/08/24 22:12 Dose: 0.5 mg Clotrimazole (Clotrimazole 1 % Cream 15 Gm Tube) 1 appl TOPICAL BID [facility]; Protocol Last Admin: 04/09/24 11:37 Dose: 1 appl Doxycycline Monohydrate (Doxycycline Monohydrate 100 Mg Capsule) 100 mg PO Q12H [facility] Last Admin: 04/09/24 16:27 Dose: 100 mg Ferrous Sulfate (Ferrous Sulfate 324 Mg Tablet.Dr) 324 mg PO BID [facility] Last Admin: 04/09/24 09:19 Dose: 324 mg Gabapentin (Gabapentin 600 Mg Tablet) 600 mg PO BEDTIME [facility] Last Admin: 04/08/24 22:12 Dose: 600 mg Glucose (Glucose Gel 15 Gm Gel..Gram.) 15 gm PO Q15M PRN; Protocol PRN Reason: per Hypoglycemia Standing Ord. Guaifenesin (Guaifenesin 200 Mg/10 Ml 10 Ml Liquid) 10 ml PO TID [facility] Last Admin: 04/09/24 16:26 Dose: 10 ml Dextrose (D10) 250 mls @ 750 mls/hr IV Q15M PRN; Protocol PRN Reason: per Hypoglycemia Standing Ord. Insulin Glargine (Insulin Glargine,Hum.Rec.Anlog 100 Unit/Ml 10 Ml Vial) 6 unit SUBCUT DAILY [facility] Last Admin: 04/09/24 09:18 Dose: 6 unit Insulin Human Lispro (Insulin Lispro 100 Unit/Ml 3 Ml Vial) 0 unit SUBCUT QIDACHS [facility]; Protocol Last Admin: 04/09/24 16:53 Dose: Not Given Magnesium Hydroxide (Milk Of Magnesia 30 Ml Oral.Susp) 30 ml PO DAILY PRN PRN Reason: Constipation Melatonin (Melatonin 3 Mg Tablet) 6 mg PO BEDTIME PRN PRN Reason: Insomnia Metoprolol Tartrate (Metoprolol Tartrate 25 Mg Tablet) 25 mg PO Q6H [facility]; Protocol Last Admin: 04/09/24 16:28 Dose: 25 mg Nicotine (Nicotine 7 Mg Patch.Td24) 7 mg TRANSDERMA Q24H [facility] Last Admin: 04/09/24 16:26 Dose: 7 mg Nicotine Polacrilex (Nicotine Polacrilex Lozenge 2 Mg Lozenge) 2 mg BUCCAL Q2H PRN PRN Reason: Smoking Cessation Pramipexole Dihydrochloride (Pramipexole Di-Hcl 1 Mg Tablet) 1 mg PO BEDTIME [facility] Last Admin: 04/08/24 22:12 Dose: 1 mg Pravastatin Sodium (Pravastatin Sodium 40 Mg Tablet) 40 mg PO BEDTIME [facility] Last Admin: 04/08/24 22:12 Dose: 40 mg Sodium Chloride (0.9 % Sodium Chloride Flush 3 Ml Syringe) 3 ml IVFLUSH QSHIFT [facility] Last Admin: 04/09/24 16:27 Dose: 3 ml Tramadol HCl (Tramadol Hcl 50 Mg Tablet) 50 mg PO TID PRN PRN Reason: Pain, Severe (Pain Scale 7-10) Trazodone HCl (Trazodone Hcl 100 Mg Tablet) 200 mg PO BEDTIME [facility] Last Admin: 04/08/24 22:11 Dose: 200 mg Allergies Allergies Allergy/AdvReac Type Severity Reaction Status Date / Time No Known Allergies Allergy Verified 04/06/24 10:53 [No Known Allergies*] Assessment & Plan Assessment & Plan (1) Encounter for assessment of decision-making capacity: Status: Acute Code(s): Z00.8 - Encounter for other general examination Plan Mr. Baeza is a 74 year-old male who was brought from urgent care to ED due to cough. No changes in chest XR, but started on antibiotic for pneumonia. He was also found to have SVT, currently on telemetry and being followed by cardiology. He had asked to leave day before and did not seem like pt show understanding as to medical condition treated. Today, he continues to struggle to show understanding as to why he is on the medical floor, his understanding of recommendations from his attending and cardiology. He seems to think that because he feels better subjectively, he stable to be discharged. This scientific technical writer reinforced information about his medical treatment- especially for SVT and medication- metoprolol. Pt appeared more open but again I do suspect his ability to retain this information is impaired. There, he does not have capacity to make medical decisions. He does have the capacity to appoint HCP. He should still be given information about his health but keep in mind that two aspects of his decision making are impaired- his inability to process more complex information and ability to retain this information. He is not able to show appreciation of risks versus benefits of accepting or rejecting treatment with limited ability to reason. He is not delirious. I suspect his lack of capacity may be related to underlying cognitive impairments. plan 1. recommend MD to invoke HCP. If non available, pt does have capacity to appoint HCP. 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 Total time managing care of this patient today ____ minutes.
[2024-04-09 19:59] LABS: Glucose, Whole Blood 130 mg/dL (60-115)
[2024-04-09] MEDS: Gabapentin 600 MG TABLET PO (21:39)
[2024-04-09] MEDS: Pramipexole Di-HCL 1 MG TABLET PO (21:39)
[2024-04-09] MEDS: Pravastatin Sodium 40 MG TABLET PO (21:39)
[2024-04-09] MEDS: traZODone HCL 100 MG TABLET 200 MG PO (21:39)
[2024-04-09] MEDS: Aspirin Enteric Coated 81 MG TABLET.DR PO (21:40)
[2024-04-09] MEDS: clonazePAM 0.5 MG TABLET PO (21:41)
[2024-04-09 22:37] LABS: Strep Pneumo Ag urine Not Detected (Not Detected)
[2024-04-10] VITALS (9 sets, daily range): BP systolic 114–167; BP diastolic 57–85; PULSE 60–82; RESP 18–22; TEMP 36.3–36.9; O2SAT 90–98
[2024-04-10] MEDS: Metoprolol Tartrate 25 MG TABLET PO ×4 (03:08→20:41)
[2024-04-10] MEDS: Doxycycline Monohydrate 100 MG CAPSULE PO (03:08)
[2024-04-10 04:59] LABS: Legionella Ag Urine Not Detected (Not Detected)
[2024-04-10 07:49] LABS: Glucose, Whole Blood 128 mg/dL (60-115)
[2024-04-10] MEDS: Insulin Glargine,Hum.rec.anlog 100 UNIT/ML 10 ML VIAL 6 UNIT SUBCUT (08:12)
[2024-04-10] MEDS: 0.9 % Sodium Chloride Flush 3 ML SYRINGE IVFLUSH ×3 (08:12→20:43)
[2024-04-10] MEDS: cilostazoL 100 MG TABLET PO ×2 (08:12→20:42)
[2024-04-10] MEDS: guaiFENesin 200 MG/10 ML 10 ML LIQUID PO ×3 (08:12→20:41)
[2024-04-10] MEDS: Ferrous Sulfate 324 MG TABLET.DR PO ×2 (08:12→20:41)
[2024-04-10] MEDS: calcitrioL 0.25 MCG CAPSULE PO (08:12)
[2024-04-10] MEDS: Albuterol/Iprat 2.5/0.5MG 3 ML AMPUL.NEB INHALE (08:18)
[2024-04-10 09:32] LABS: Anion Gap 13 (12-20); Blood Urea Nitrogen 17 mg/dL (9-16); Calcium 10.2 mg/dL (8.4-10.2); Carbon Dioxide 29 mmol/L (22-29); Chloride 102 mmol/L (96-108); Creatinine Clr Calc Pharmacy 54.6; Estimated Glomerular Filt Rate > 60; Glucose Random 117 mg/dL (60-115); Magnesium 1.6 mg/dL (1.6-2.6); Potassium 4.2 mmol/L (3.3-5.1); Sodium 140 mmol/L (135-145)
--- NOTE | 2024-04-10 11:24 | PM.PNCARD ---
Subjective Subjective Date of Service: 04/10/24 Interval history: Asked to follow-up on this patient for question of SVT. Patient states he feels fine. No clear cardiac complaints like angina or shortness of breath. Review of Systems Review of Systems Yes all other systems are reviewed and are negative Constitutional: Reports as per HPI and Reports no additional constitutional complaints Eyes: Reports as per HPI and Denies no additional eye complaints Denies system reviewed and no additional complaints, except as documented and Reports as per HPI Cardiovascular: Reports as per HPI, Reports no additional cardiovascular complaints, Denies acrocyanosis, Denies cool extremities, Denies chest pain, Denies leg edema, Denies lightheadedness, Denies palpitations and Denies dyspnea Respiratory: Reports as per HPI, Denies no additional respiratory complaints and Denies dyspnea Gastrointestinal: Reports as per HPI and Denies no additional gastrointestinal complaints Genitourinary: Reports no additional male genitourinary complaints and Reports as per HPI Musculoskeletal: Reports no additional musculoskeletal complaints and Reports as per HPI Skin/Breast: Reports system reviewed and no additional complaints, except as docu Reports system reviewed and no additional complaints, except as documented and Reports as per HPI Psychiatric: Reports no additional psychiatric complaints and Reports as per HPI Endocrine: Reports no additional endocrine complaints, Reports as per HPI and Denies palpitations Hematologic/Lymphatic: Reports no additional hematologic/lymphatic complaints and Reports as per HPI Allergic/Immunologic: Reports no additional allergic/immunologic complaints and Reports as per HPI Physical Exam Vital Signs: Last Vital Signs Temp 97.6 F 04/10/24 07:52 Pulse 60 04/10/24 08:19 Resp 20 04/10/24 08:19 BP 132/85 04/10/24 07:52 Pulse Ox 93 04/10/24 07:52 O2 Del Method Room Air 04/10/24 07:52 O2 Flow Rate 2 04/08/24 11:23 BMI result Body Mass Index 27.4 Const General: comfortable and no acute distress Orientation/consciousness: patient oriented x3 HEENT Other: Unremarkable Head: Yes normal to inspection Neck Neck: Yes normal visual inspection Chest Chest palpation & inspection: normal inspection of the chest Resp Other: Minimal crackles Cardio Palpation: normal PMI Heart sounds: S1 normal heart sound present, S2 normal heart sound present, no gallops, no murmurs and no rubs GI Palpation (GI): Soft to palpation Back/Spine/Pelvis Other: unremarkable Skin General skin exam: no rashes or lesions noted Neuro General: patient oriented x3 Extrem General: Yes normal to inspection Psych Mental Status: mental status grossly normal Objective Labs and Meds 04/07/24 06:26 04/10/24 09:06 Lab results: Laboratory Results - last 24 hr 04/07/24 04/09/24 04/09/24 03:34 11:11 16:50 Sodium Potassium Chloride Carbon Dioxide Anion Gap BUN Creatinine Estim Creat Clear Calc Estimated GFR POC Glucose 154 H 110 Random Glucose Calcium Magnesium Ur L.pneumophila Ag Not Detected Ur Strep pneumoniae Ag Not Detected 04/09/24 04/10/24 04/10/24 19:49 07:45 09:06 Sodium 140 Potassium 4.2 Chloride 102 Carbon Dioxide 29 Anion Gap 13 BUN 17 H Creatinine 1.16 Estim Creat Clear Calc 54.6 Estimated GFR > 60 POC Glucose 130 H 128 H Random Glucose 117 H Calcium 10.2 D Magnesium 1.6 Ur L.pneumophila Ag Ur Strep pneumoniae Ag Progress Note: A&P Assessment and plan (1) SVT (supraventricular tachycardia): Status: Acute (2) PVC (premature ventricular contraction): Status: Acute Plan Per admission H and P, he was actually admitted for possible pneumonia. In that setting, he was felt to have runs of SVT. On review of telemetry, nothing obvious today but as today he did have some short runs. Difficult to say if there NSVT or ventricular. Some areas look supraventricular but others possibly ventricular. It could also be supraventricular with aberrancy. He had hypokalemia upon arrival but seems that it improved. Otherwise, he is got stable coronary artery disease and moderate LAD and RCA disease from cardiac catheterization in 2019 and unremarkable perfusion imaging from last year. Recent echocardiogram with LVEF of 50-55%. Inferolateral/basal inferior hypokinesis. Ascending aortic size 4.4 cm. Overall, short arrhythmias as above but nothing persistent. Electrolytes have been corrected. Recommend that he continues beta-blockers. He can keep his follow-up appointment in [address] Pascual. Time Spent With Patient Time: Total time managing care of this patient today ____ minutes. Progress Note: Quality Stroke Does the patient have a stroke diagnosis?: No Procedures Date of Service Date of Service: 04/10/24
[2024-04-10 11:31] LABS: Glucose, Whole Blood 130 mg/dL (60-115)
--- NOTE | 2024-04-10 13:00 | MHC.CM.PN ---
Addendum entered by Lachelle Donohue 04/10/24 15:07: Pt accepted by [facility] for home care services. Original Note: CM met with pt. along with plate washer, he completed a HCP, naming Daniela Shresthafrank, his WIRELESS MANAGER, this was added to chart. PT rec. home PT, referrals out to V[facility]'s that accept [facility].
--- NOTE | 2024-04-10 13:07 | P.PNIM_ITS ---
Subjective Subjective Date of Service: 04/10/24 Interval History: This history was taken in Polish from the patient. C/o copious watery green diarrhea, abd pain no dyspnea or chest pain Review of Systems Review of Systems: Yes all other systems are reviewed and are negative Physical Exam 2 Vital Signs: Vital Signs: Last Vital Signs Temp 97.4 F 04/10/24 11:45 Pulse 65 04/10/24 11:45 Resp 18 04/10/24 11:45 BP 120/58 L 04/10/24 11:45 Pulse Ox 93 04/10/24 11:45 O2 Del Method Room Air 04/10/24 11:45 O2 Flow Rate 2 04/08/24 11:23 BMI result Body Mass Index 27.4 Gen: in no acute distress HEENT: sclera anicteric, moist mucus membranes Neck: supple Lungs: diminished Heart: regular rate and rhythm, no murmurs Abd: soft, non-tender, non-distended Ext: no edema Skin: warm/well-perfused Neuro: alert and oriented x3, no focal findings Psych: appropriate affect Objective Data Active Medications Acetaminophen (Acetaminophen 325 Mg Tablet) 650 mg PO Q6H PRN PRN Reason: Pain, Mild (Pain Scale 1-3), fever or headache Last Admin: 04/07/24 16:47 Dose: 650 mg Documented By: YANICK Aspirin (Aspirin Enteric Coated 81 Mg Tablet.Dr) 81 mg PO BEDTIME [facility] Last Admin: 04/09/24 21:40 Dose: 81 mg Documented By: MARÍA Calcitriol (Calcitriol 0.25 Mcg Capsule) 0.25 mcg PO MOWEFR@0900 [facility] Last Admin: 04/10/24 08:12 Dose: 0.25 mcg Documented By: MARYSOL Calcium Carbonate (Calcium Carbonate 750 Mg Tab.Chew) 750 mg PO Q4H PRN PRN Reason: Heartburn Cilostazol (Cilostazol 100 Mg Tablet) 100 mg PO BID [facility] Last Admin: 04/10/24 08:12 Dose: 100 mg Documented By: MARYSOL Clonazepam (Clonazepam 0.5 Mg Tablet) 0.5 mg PO BEDTIME [facility] Last Admin: 04/09/24 21:41 Dose: 0.5 mg Documented By: MARÍA Clotrimazole (Clotrimazole 1 % Cream 15 Gm Tube) 1 appl TOPICAL BID [facility]; Protocol Last Admin: 04/09/24 21:46 Dose: 1 appl Documented By: MARÍA Doxycycline Monohydrate (Doxycycline Monohydrate 100 Mg Capsule) 100 mg PO Q12H [facility] Last Admin: 04/10/24 03:08 Dose: 100 mg Documented By: MARÍA Ferrous Sulfate (Ferrous Sulfate 324 Mg Tablet.Dr) 324 mg PO BID [facility] Last Admin: 04/10/24 08:12 Dose: 324 mg Documented By: MARYSOL Gabapentin (Gabapentin 600 Mg Tablet) 600 mg PO BEDTIME [facility] Last Admin: 04/09/24 21:39 Dose: 600 mg Documented By: MARÍA Glucose (Glucose Gel 15 Gm Gel..Gram.) 15 gm PO Q15M PRN; Protocol PRN Reason: per Hypoglycemia Standing Ord. Guaifenesin (Guaifenesin 200 Mg/10 Ml 10 Ml Liquid) 10 ml PO TID [facility] Last Admin: 04/10/24 08:12 Dose: 10 ml Documented By: MARYSOL Dextrose (D10) 250 mls @ 750 mls/hr IV Q15M PRN; Protocol PRN Reason: per Hypoglycemia Standing Ord. Insulin Glargine (Insulin Glargine,Hum.Rec.Anlog 100 Unit/Ml 10 Ml Vial) 6 unit SUBCUT DAILY [facility] Last Admin: 04/10/24 08:12 Dose: 6 unit Documented By: MARYSOL Insulin Human Lispro (Insulin Lispro 100 Unit/Ml 3 Ml Vial) 0 unit SUBCUT QIDACHS [facility]; Protocol Last Admin: 04/10/24 12:31 Dose: Not Given Documented By: MARYSOL Non-Admin Reason: No Insulin Coverage Levalbuterol HCl (Levalbuterol Hcl 1.25 Mg/3 Ml Vial.Neb) 1.25 mg INHALE Q4H PRN PRN Reason: shortness of breath/wheeze Magnesium Hydroxide (Milk Of Magnesia 30 Ml Oral.Susp) 30 ml PO DAILY PRN PRN Reason: Constipation Melatonin (Melatonin 3 Mg Tablet) 6 mg PO BEDTIME PRN PRN Reason: Insomnia Metoprolol Tartrate (Metoprolol Tartrate 25 Mg Tablet) 25 mg PO Q6H [facility]; Protocol Last Admin: 04/10/24 08:12 Dose: 25 mg Documented By: MARYSOL Nicotine (Nicotine 7 Mg Patch.Td24) 7 mg TRANSDERMA Q24H [facility] Last Admin: 04/09/24 16:26 Dose: 7 mg Documented By: SVETA Nicotine Polacrilex (Nicotine Polacrilex Lozenge 2 Mg Lozenge) 2 mg BUCCAL Q2H PRN PRN Reason: Smoking Cessation Pramipexole Dihydrochloride (Pramipexole Di-Hcl 1 Mg Tablet) 1 mg PO BEDTIME [facility] Last Admin: 04/09/24 21:39 Dose: 1 mg Documented By: MARÍA Pravastatin Sodium (Pravastatin Sodium 40 Mg Tablet) 40 mg PO BEDTIME [facility] Last Admin: 04/09/24 21:39 Dose: 40 mg Documented By: MARÍA Sodium Chloride (0.9 % Sodium Chloride Flush 3 Ml Syringe) 3 ml IVFLUSH QSHIFT [facility] Last Admin: 04/10/24 08:12 Dose: 3 ml Documented By: MARYSOL Tramadol HCl (Tramadol Hcl 50 Mg Tablet) 50 mg PO TID PRN PRN Reason: Pain, Severe (Pain Scale 7-10) Trazodone HCl (Trazodone Hcl 100 Mg Tablet) 200 mg PO BEDTIME [facility] Last Admin: 04/09/24 21:39 Dose: 200 mg Documented By: MARÍA Labs 04/07/24 06:26 04/10/24 09:06 Labs: Laboratory Results - last 24 hr 04/07/24 04/09/24 04/09/24 03:34 16:50 19:49 Anion Gap Estim Creat Clear Calc Estimated GFR POC Glucose 110 130 H Random Glucose Calcium Magnesium Ur L.pneumophila Ag Not Detected Ur Strep pneumoniae Ag Not Detected 04/10/24 04/10/24 04/10/24 07:45 09:06 11:16 Anion Gap 13 Estim Creat Clear Calc 54.6 Estimated GFR > 60 POC Glucose 128 H 130 H Random Glucose 117 H Calcium 10.2 D Magnesium 1.6 Ur L.pneumophila Ag Ur Strep pneumoniae Ag Assessment and Plan (1) Hypokalemia: Status: Acute (2) SVT (supraventricular tachycardia): Status: Acute (3) SUSHILA (acute kidney injury): Status: Acute Plan d5 74 year old male with history of CAD, HTN, DM, diabetic polyneuropathy, and HFrEF presented with cough + dyspnea found to have hypoxia + SVT AHRF - CT chest shows likely atelecatsis; PCT remains low; respiratory viral panel negative. Suspect chronic atelectasis + acute bronchitis, continue doxycycline 04/06-04/09 + nebs. Weaned off of O2 SVT vs VT - TTE done 04/08: - The left ventricular systolic function is low normal. The visually estimated ejection fraction is between 50-55%. - The inferolateral wall and basal inferior segment are hypokinetic. - No obvious valvular pathology seen on this study. - There is mild dilatation of the ascending aorta measuring 4.40 cm. - Cardiology consulted, increased metoprolol tartrate further to 25 mg q6h, will f/u in 2 wk diarrhea - Cdiff + GI panel [got a few doses of ceftriaxone and a full course of doxycycline] hypoK - repleted, likely was due to excess diuretics [was on furosemide + HCTZ, discontinued] chronic HFpEF - diuretics held as below SUSHILA/CKD3 - improved with IV fluids + holding diuretics PAD CAD - continue ASA, cilostazol, statin DM2 - continue Lantus + correction-dose lispro tobacco abuse disorder - continue NRT mood disorder - continue trazodone, clonazepam capacity determination - consulted Psychiatry: has capacity to appoint HCP but not to make medical decisions. Not trying to leave at this point VTE ppx - LMWH dispo - PT eval: home with [facility] In my clinical judgment, the patient requires continued inpatient hospitalization for the following reasons: SVT, diarrhea Total time managing care of this patient today: 35 minutes. Quality Stroke Does the patient have a stroke diagnosis?: No VTE Prior VTE?: No VTE Risk Level:: Medical - moderate - high VTE Device Contraindication: Treatment Not Indicated VTE Drug Contraindication: N/A - Med Ordered
[2024-04-10 14:35] LABS: CDiff Gene PCR NEGATIVE (Negative)
[2024-04-10] MEDS: Clotrimazole 1 % Cream 15 GM TUBE 1 APPL TOPICAL ×2 (16:09→22:05)
[2024-04-10] MEDS: Nicotine 7 MG PATCH.TD24 TRANSDERMA (16:10)
[2024-04-10 16:36] LABS: Glucose, Whole Blood 136 mg/dL (60-115)
[2024-04-10] MEDS: Loperamide HCl 2 MG CAPSULE 4 MG PO (17:09)
[2024-04-10 20:27] LABS: Glucose, Whole Blood 136 mg/dL (60-115)
[2024-04-10] MEDS: Aspirin Enteric Coated 81 MG TABLET.DR PO (20:41)
[2024-04-10] MEDS: traZODone HCL 100 MG TABLET 200 MG PO (20:41)
[2024-04-10] MEDS: Nicotine Polacrilex Lozenge 2 MG LOZENGE BUCCAL (20:42)
[2024-04-10] MEDS: Pravastatin Sodium 40 MG TABLET PO (20:42)
[2024-04-10] MEDS: clonazePAM 0.5 MG TABLET PO (20:42)
[2024-04-10] MEDS: Gabapentin 600 MG TABLET PO (20:42)
[2024-04-10] MEDS: Pramipexole Di-HCL 1 MG TABLET PO (20:43)
[2024-04-11] VITALS: BP 126/60; PULSE 58; RESP 20; TEMP 36.4; O2SAT 96
[2024-04-11 03:54] VITALS: PULSE 59
[2024-04-11 04:00] VITALS: BP 137/60; PULSE 64; RESP 20; TEMP 36.6; O2SAT 91
[2024-04-11 07:24] LABS: Anion Gap 15 (12-20); Blood Urea Nitrogen 19 mg/dL (9-16); Carbon Dioxide 26 mmol/L (22-29); Chloride 104 mmol/L (96-108); Estimated Glomerular Filt Rate > 60; Glucose Random 81 mg/dL (60-115); Magnesium 1.7 mg/dL (1.6-2.6); Potassium 4.2 mmol/L (3.3-5.1); Sodium 141 mmol/L (135-145)
[2024-04-11 07:48] LABS: Glucose, Whole Blood 108 mg/dL (60-115)
[2024-04-11 08:00] VITALS: BP 122/48; PULSE 58; RESP 18; TEMP 36.4; O2SAT 93
[2024-04-11] MEDS: Metoprolol Tartrate 25 MG TABLET PO (09:02)
[2024-04-11] MEDS: Ferrous Sulfate 324 MG TABLET.DR PO (09:02)
[2024-04-11] MEDS: cilostazoL 100 MG TABLET PO (09:02)
[2024-04-11] MEDS: guaiFENesin 200 MG/10 ML 10 ML LIQUID PO (09:02)
[2024-04-11] MEDS: Insulin Glargine,Hum.rec.anlog 100 UNIT/ML 10 ML VIAL 6 UNIT SUBCUT (09:02)
[2024-04-11] MEDS: 0.9 % Sodium Chloride Flush 3 ML SYRINGE IVFLUSH (09:03)
[2024-04-11] MEDS: Clotrimazole 1 % Cream 15 GM TUBE 1 APPL TOPICAL (09:09)
--- NOTE | 2024-04-11 10:50 | W.MHC.F2F ---
Service Date Service Date: 04/11/24 Encounter Date of encounter: 04/11/24 Reasons for Services Signs and symptoms assessed: Impaired Gait Pattern, Impaired Standing Balance,Muscle Weakness, Postural Asymmetry Reason for shelter: medication management, medication treatment, teach disease management and other (HR/BP monitoring) Reason for physical therapy: home safety and mobility, therapeutic exercises, gait/transfer training, assess need for DME, ADL training and energy conservation MD Overseeing Care: Kristi Warren Homebound: Leaving the home is medically contraindicated at this time without the asist of a device and/or another person due th the listed conditions above and below. Reason homebound: unsteady gait / fall risk Homebound supporting statement: Transfer Training, Therapeutic Activities, Therapeutic Exercise, Patient Education, Safety Certification: Based on the above findings, I certify that this patient is confined to the home and needs intermittent shelter care, physical therapy and/or speech therapy, or continues to need occupational therapy. The patient is under my care, and I have initiated the establishment of the plan of care. The patient will be followed by a physician who will periodically review the plan of care. Time Spent With Patient Time: Total time managing care of this patient today ____ minutes.
--- NOTE | 2024-04-11 10:58 | P.PNCA_ITS ---
Subjective Subjective Date of Service: 04/11/24 Interval history: He is somewhat sleepy. 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 He states he is feeling fine. Review of Systems Review of Systems Yes all other systems are reviewed and are negative Constitutional: Reports as per HPI and Reports no additional constitutional complaints Eyes: Reports as per HPI and Denies no additional eye complaints Denies system reviewed and no additional complaints, except as documented and Reports as per HPI Cardiovascular: Reports as per HPI, Reports no additional cardiovascular complaints, Denies acrocyanosis, Denies cool extremities, Denies chest pain, Denies leg edema, Denies lightheadedness, Denies palpitations and Denies dyspnea Respiratory: Reports as per HPI, Denies no additional respiratory complaints and Denies dyspnea Gastrointestinal: Reports as per HPI and Denies no additional gastrointestinal complaints Genitourinary: Reports no additional male genitourinary complaints and Reports as per HPI Musculoskeletal: Reports no additional musculoskeletal complaints and Reports as per HPI Skin/Breast: Reports system reviewed and no additional complaints, except as docu Reports system reviewed and no additional complaints, except as documented and Reports as per HPI Psychiatric: Reports no additional psychiatric complaints and Reports as per HPI Endocrine: Reports no additional endocrine complaints, Reports as per HPI and Denies palpitations Hematologic/Lymphatic: Reports no additional hematologic/lymphatic complaints and Reports as per HPI Allergic/Immunologic: Reports no additional allergic/immunologic complaints and Reports as per HPI Physical Exam Vital Signs: Last Vital Signs Temp 97.5 F 04/11/24 08:00 Pulse 58 04/11/24 08:00 Resp 18 04/11/24 08:00 BP 122/48 L 04/11/24 08:00 Pulse Ox 93 04/11/24 08:00 O2 Del Method Room Air 04/11/24 08:00 O2 Flow Rate 2 04/08/24 11:23 BMI result Body Mass Index 27.4 Const General: comfortable and no acute distress Orientation/consciousness: patient oriented x3 HEENT Other: Unremarkable Head: Yes normal to inspection Neck Neck: Yes normal visual inspection Chest Chest palpation & inspection: normal inspection of the chest Resp Other: Minimal crackles Cardio Palpation: normal PMI Heart sounds: S1 normal heart sound present, S2 normal heart sound present, no gallops, no murmurs and no rubs GI Palpation (GI): Soft to palpation Back/Spine/Pelvis Other: unremarkable Skin General skin exam: no rashes or lesions noted Neuro General: patient oriented x3 Extrem General: Yes normal to inspection Psych Mental Status: mental status grossly normal Objective Labs and Meds 04/07/24 06:26 04/11/24 06:43 Lab results: Laboratory Results - last 24 hr 04/10/24 04/10/24 04/10/24 11:16 13:27 16:30 Sodium Potassium Chloride Carbon Dioxide Anion Gap BUN Creatinine Estim Creat Clear Calc Estimated GFR POC Glucose 130 H 136 H Random Glucose Calcium Magnesium C. difficile Tox B Gene NEGATIVE 04/10/24 04/11/24 04/11/24 20:19 06:43 07:35 Sodium 141 Potassium 4.2 Chloride 104 Carbon Dioxide 26 Anion Gap 15 BUN 19 H Creatinine 1.11 Estim Creat Clear Calc 57.0 Estimated GFR > 60 POC Glucose 136 H 108 Random Glucose 81 Calcium 10.0 Magnesium 1.7 C. difficile Tox B Gene Progress Note: A&P Assessment and plan (1) SVT (supraventricular tachycardia): Status: Acute (2) PVC (premature ventricular contraction): Status: Acute Plan Per admission H and P, he was actually admitted for possible pneumonia. In that setting, he was felt to have runs of SVT. On telemetry, difficult to say if these are supraventricular ventricular. Some of them actually look like rather PVCs and with short runs. Variable morphologies. Could also be supraventricular with aberrancy. Difficult to differentiate. Otherwise, he has got stable coronary artery disease and moderate LAD and RCA disease from cardiac catheterization in 2019 and unremarkable perfusion imaging from last year. Recent echocardiogram with LVEF of 50-55%. Inferolateral/basal inferior hypokinesis. Ascending aortic size 4.4 cm. Overall, short arrhythmias as above but nothing persistent. Electrolytes have been corrected. May continue beta-blockers. Follow-up in clinic Discussed with Dr. Pascual. Time Spent With Patient Time: Total time managing care of this patient today 42 minutes. This includes time spent in review of chart, laboratory data, imaging studies, review of telemetry, counseling patient, discussion with hospitalist, RN, documentation, coordination of care. Progress Note: Quality Stroke Does the patient have a stroke diagnosis?: No Procedures Date of Service Date of Service: 04/11/24
--- NOTE | 2024-04-11 11:00 | P.DS_ITS ---
DS: Providers Provider Date of Service: 04/11/24 Date of admission: 04/06/24 15:07 Date of discharge: 04/11/24 Primary care physician: Kristi Warren NP Consults: 04/07/24 10:21 Consult to Cardiology Routine Consulting Provider: [facility] Reason for consultation: arrythmias Has provider been notified: No 04/08/24 17:03 Consult to Psychiatry Stat Consulting Provider: Psych Covering Reason for consultation: determine capacity 04/08/24 17:10 Consult for Sitter Routine Reason for consultation: confused/oob/aggressive DS: Diagnosis Discharge Diagnosis (1) Hypokalemia: Status: Acute (2) SVT (supraventricular tachycardia): Status: Acute (3) SUSHILA (acute kidney injury): Status: Acute (4) PVC (premature ventricular contraction): Status: Acute (5) Acute respiratory failure with hypoxia: Status: Acute (6) Atelectasis: Status: Acute DS: Summary Hospital Course Hospital Course: From the history and physical by the admitting hospitalist, Froylan Su, 04/06/24: 74 year old male with history of CAD, HTN, DM, diabetic polyneuropathy, and HFrEF [sic] presented to the ED from walk in clinic for evaluation of rios and productive cough worsening over the last 1 month. He states multiple people in his apartment complex (though he does live alone in his actual apartment complex) have tested postive for COVID. He states over the last month has had a productive cough with yellow/green sputum and rios that has been worsening. Denies any worsening of ble edema and no orthopnea/PND. No weight gain. Reports subjective fevers but has not checked his temperature. No shaking chills, st, sinus pressure, abd pain, n/v/d, urinary symptoms, wheezing, sob at rest, lightheadedness, palpitations, or chest pain. Since arrival, appears to have intermittent runs of non sustained SVT with HR in the 140s that quickly return to 70-80s. He is afebrile. Was initially reported as hypoxic to 87% but during exam maintaining oximetry 96-99% on RA. NO leukocytosis or anemia. Creat slightly bumped from baseline at 1.65, but no true SUSHILA. BUN 22. K 2.9, CO2 36. UA unremarkable. Negative covid, flu, rsv. CXR shows atelectasis/infiltrate RLL unchanged. Venous duplex negative for DVT. In the ED has received IV/PO KCl, IV mag, IV ctx, and IVF. 74 year old male with history of CAD, HTN, DM, diabetic polyneuropathy, and HFpEF who presented with cough + dyspnea and was found to have hypoxia + SVT. Hospital course by problem: AHRF - CT chest showed likely atelecatsis; PCT remained low; respiratory viral panel negative. Suspect chronic atelectasis + acute bronchitis. Was treated with 5 days of doxycycline for possible bronchitis but ultimately I think incentive spirometry was what helped him most. He was quickly weaned off supplemental oxygen. SVT - TTE done 04/08: - The left ventricular systolic function is low normal. The visually estimated ejection fraction is between 50-55%. - The inferolateral wall and basal inferior segment are hypokinetic. - No obvious valvular pathology seen on this study. - There is mild dilatation of the ascending aorta measuring 4.40 cm. - Cardiology was consulted. Some runs appeared to be SVT and others PVCs vs. SVT with aberrancy. He was treated with metoprolol tartrate and this was transitioned to metoprolol succinate. He was prescribed 50 mg of metoprolol succinate bid upon discharge. He will follow up with [facility] in 2 weeks. hypokalemia - Repleted. Likely was due to excess diuretics [was on furosemide + HCTZ; unclear why on both], which were discontinued. SUSHILA/CKD3 - Improved with IV fluids + stopping diuretics. SCr 1.11 upon discharge. He was discharged home with VNA services. Time Attestation Discharge Coordination Time (in mins): 45 Quality: Safe Use of Opioids Does Pt have an Active Cancer Diagnosis on the Problem List?: No Quality: Stroke Does the patient have a stroke diagnosis?: No Physical Exam Vital Signs: Vital Signs: Last Vital Signs Temp 97.5 F 04/11/24 08:00 Pulse 58 04/11/24 08:00 Resp 18 04/11/24 08:00 BP 122/48 L 04/11/24 08:00 Pulse Ox 93 04/11/24 08:00 O2 Del Method Room Air 04/11/24 08:00 O2 Flow Rate 2 04/08/24 11:23 BMI result Body Mass Index 27.4 Gen: in no acute distress HEENT: sclera anicteric, moist mucus membranes Neck: supple Lungs: clear bilaterally Heart: regular rate and rhythm, no murmurs Abd: soft, non-tender, non-distended Ext: no edema Skin: warm/well-perfused Neuro: alert and oriented x3, no focal findings Psych: appropriate affect DS: Data Data Completed and Pending Completed studies during hospitalization [Text1]: Laboratory Results WBC 9.1 X10*3/uL (4.8-10.8) 04/07/24 06:26 RBC 4.12 X10*6/uL (4.60-5.80) L 04/07/24 06:26 Hgb 14.3 g/dl (14.0-18.0) 04/07/24 06:26 Hct 41.5 % (42.0-52.0) L 04/07/24 06:26 MCV 100.7 fL (80.0-98.0) H 04/07/24 06:26 MCH 34.7 pg (27.0-33.0) H 04/07/24 06:26 MCHC 34.5 g/dl (31.0-36.0) 04/07/24 06:26 RDW 14.1 % (11.0-16.0) 04/07/24 06:26 Plt Count 196 X10*3/uL (160-400) 04/07/24 06:26 MPV 9.6 fL (9.4-12.4) 04/07/24 06:26 Immature Gran % (Auto) 0.6 % (0.0-0.4) H 04/07/24 06:26 Neut % (Auto) 67.8 % (45-73) 04/07/24 06:26 Lymph % (Auto) 21.8 % (20-40) 04/07/24 06:26 [facility] % (Auto) 7.7 % (2-11) 04/07/24 06:26 Eos % (Auto) 1.5 % (0-4) 04/07/24 06:26 Baso % (Auto) 0.6 % (0-2) 04/07/24 06:26 Lymph # (Auto) 2.0 X10*3/uL (1.2-4.9) 04/07/24 06:26 [facility] # (Auto) 0.7 X10*3/uL (0.1-1.2) 04/07/24 06:26 Eos # (Auto) 0.1 X10*3/uL (0.0-0.4) 04/07/24 06:26 Baso # (Auto) 0.1 X10*3/uL (0.0-0.2) 04/07/24 06:26 Abs Immat Gran (auto) 0.05 X10*3/uL (0.00-0.03) H 04/07/24 06:26 Absolute Neuts (auto) 6.2 x10*3/uL (2.0-8.3) 04/07/24 06:26 Absolute Nucleated RBC 0.000 X10*3/uL (0.0-0.012) 04/07/24 06: Nucleated RBC % (auto) 0.0 /100WBC (0.0-0.2) 04/07/24 06:26 PT 12.7 SEC (11.1-13.3) 04/06/24 11:45 INR 1.0 (0.9-1.1) 04/06/24 11:45 APTT 31.2 SEC (26.0-36.8) 04/06/24 11:45 Sodium 141 mmol/L (135-145) 04/11/24 06:43 Potassium 4.2 mmol/L (3.3-5.1) 04/11/24 06:43 Chloride 104 mmol/L (96-108) 04/11/24 06:43 Carbon Dioxide 26 mmol/L (22-29) 04/11/24 06:43 Anion Gap 15 (12-20) 04/11/24 06:43 BUN 19 mg/dL (9-16) H 04/11/24 06:43 Creatinine 1.11 mg/dL (0.5-1.4) 04/11/24 06:43 Estim Creat Clear Calc 57.0 04/11/24 06:43 Estimated GFR > 60 04/11/24 06:43 POC Glucose 108 mg/dL (60-115) 04/11/24 07:35 Random Glucose 81 mg/dL (60-115) 04/11/24 06:43 Lactic Acid 1.7 mmol/L (0.5-2.0) 04/06/24 12:21 Calcium 10.0 mg/dL (8.4-10.2) 04/11/24 06:43 Magnesium 1.7 mg/dL (1.6-2.6) 04/11/24 06:43 Total Bilirubin 1.1 mg/dL (0.0-1.0) H 04/06/24 11:45 Direct Bilirubin 0.4 mg/dL (0.0-0.5) 04/06/24 11:45 AST 12 U/L (5-37) 04/06/24 11:45 ALT 7 U/L (0-40) 04/06/24 11:45 Alkaline Phosphatase 111 U/L (39-117) 04/06/24 11:45 Troponin I High Sens 21.5 ng/L (<3.5-35.0) 04/06/24 11:45 B-Natriuretic Peptide 65 pg/mL (<100) 04/06/24 11:45 Total Protein 6.8 g/dL (6.5-8.0) 04/06/24 11:45 Albumin 3.8 g/dL (3.5-5.0) 04/06/24 11:45 Procalcitonin 0.08 ng/mL 04/08/24 10:48 TSH 2.53 uIU/mL (0.32-4.0) 04/07/24 06:26 Urine Color Yellow 04/06/24 13:35 Urine Appearance Clear 04/06/24 13:35 Urine pH 7.5 (5.0-9.0) 04/06/24 13:35 Ur Specific [place] 1.015 (1.005-1.025) 04/06/24 13:35 Urine Protein Negative mg/dL (Neg-Trace) 04/06/24 13:35 Urine Glucose (UA) >=1000 mg/dL (Negative) H 04/06/24 13:35 Urine Ketones Negative mg/dL (Negative) 04/06/24 13:35 Urine Blood Negative (Negative) 04/06/24 13:35 Urine Nitrite Negative (Negative) 04/06/24 13:35 Ur Leukocyte Esterase Negative (Negative) 04/06/24 13:35 Urine RBC 0-2 /HPF (0-2) 04/06/24 13:35 Urine WBC 0-5 /HPF (0-5) 04/06/24 13:35 Ur Squamous Epith Cells 0-2 /HPF (0-2) 04/06/24 13:35 Urine Bacteria None Seen (None Seen) 04/06/24 13:35 Hyaline Casts 0-2 /LPF (0-2) 04/06/24 13:35 Respiratory Panel Ortiz See Note 04/06/24 15:50 Adenovirus (Rapid PCR) Not Detected (Not Detect.) 04/06/24 15:50 B.pert (TEM-PCR) Not Detected (Not Detect.) 04/06/24 15:50 B.parapertussis DNA PCR Not Detected (Not Detect.) 04/06/24 15:50 C. pneumoniae DNA (PCR) Not Detected (Not Detect.) 04/06/24 15:50 C. difficile Tox B Gene NEGATIVE (Negative) 04/10/24 13:27 Coronavirus OC43 (PCR) Not Detected (Not Detect.) 04/06/24 15:50 Coronavirus HKU1 (PCR) Not Detected (Not Detect.) 04/06/24 15:50 Coronavirus 229E (PCR) Not Detected (Not Detect.) 04/06/24 15:50 Coronavirus NL63 (PCR) Not Detected (Not Detect.) 04/06/24 15:50 Human Metapneumovir PCR Not Detected (Not Detect.) 04/06/24 15:50 Influenza A (RT-PCR) Not Detected (Not Detect.) 04/06/24 15:50 Influenza Type A (PCR) NEGATIVE (Negative) 04/06/24 11:45 Influenza B (RT-PCR) Not Detected (Not Detect.) 04/06/24 15:50 Influenza Type B (PCR) NEGATIVE (Negative) 04/06/24 11:45 Ur L.pneumophila Ag Not Detected (Not Detected) 04/07/24 03:34 M. pneumoniae (PCR) Not Detected (Not Detect.) 04/06/24 15:50 Parainfluenza 1 (PCR) Not Detected (Not Detect.) 04/06/24 15:50 Parainfluenza 2 (PCR) Not Detected (Not Detect.) 04/06/24 15:50 Parainfluenza 3 (PCR) Not Detected (Not Detect.) 04/06/24 15:50 Parainfluenza 4 (PCR) Not Detected (Not Detect.) 04/06/24 15:50 RSV (PCR) Not Detected (Not Detect.) 04/06/24 15:50 RSV RNA Qual (PCR) NEGATIVE (Negative) 04/06/24 11:45 Entero/Rhino (PCR) Not Detected (Not Detect.) 04/06/24 15:50 SARS-CoV-2 RNA (RT-PCR) Not Detected (Not Detect.) 04/06/24 15:50 Ur Strep pneumoniae Ag Not Detected (Not Detected) 04/07/24 03:34 Impressions Chest X-Ray 04/06/24 11:23 IMPRESSION: 1. Redemonstration of infiltrate/atelectasis at right lung base unchanged. 2. No pleural effusion. Venous Duplex 04/06/24 13:12 IMPRESSION: No DVT demonstrated in the bilateral lower extremities. Chest CT 04/06/24 16:29 IMPRESSION: 1. Right middle lobe consolidation, favored to represent atelectasis. 2. Streaky opacities in the bilateral lower lobes most consistent with subsegmental atelectasis. 3. The ascending aorta measures 4.2 cm in diameter. Fleischner guidelines were followed. Discharge Plan Discharge Anticipated Discharge Date/Time: 04/11/24 10:52 Patient Disposition: Home Health Service Discharge Diagnosis: SVT hypoxia from atelectasis hypokalemia acute kidney injury/chronic kidney disease Referrals: Jcarlos Adair MD [Physician] - 2 Weeks Kristi Warren NP [Primary Care Provider] - 1 Week Discharge Medications: New metoprolol succinate 50 mg Tablet Extended Release 24 Hr 50 mg PO BID Qty: 60 0RF Protocol: Hold for SBP/HR < HOLD for SBP < : 90 HOLD for HR < : 60 Continued cilostazol 100 mg tablet 100 mg PO BID 90 Days Qty: 180 3RF testosterone [AndroGel] 20.25 mg/1.25 gram (1.62 %) gel in metered-dose pump 3 pump transdermal DAILY 28 Days Qty: 150 5RF Rx Instructions: apply 3 pump daily alternating arms. Rub in until dry - aplique 3 bombas diarias alternando brazos. Frote hasta que se seque. tramadol 50 mg tablet 50 mg PO TID PRN (Reason: pain) Qty: 90 2RF clonazepam 0.5 mg tablet 0.5 mg PO BEDTIME clotrimazole 1 % cream 1 appl topical BID calcitriol 0.25 mcg capsule 0.25 mcg PO MOWEFR@0900 insulin glargine [Lantus Solostar U-100 Insulin] 100 unit/mL (3 mL) insulin pen 8 unit subcut DAILY Jardiance 25 mg tablet 25 mg PO DAILY nicotine 7 mg/24 hr Patch 24 Hour 1 patch TRANSDERMAL Q24H nicotine (polacrilex) 2 mg Lozenge 2 mg BUCCAL Q2H PRN (Reason: Smoking Cessation) Rx Instructions: DNE 20 PIECES / DAY amlodipine 5 mg tablet 5 mg PO DAILY pravastatin 40 mg tablet 40 mg PO BEDTIME gabapentin 600 mg tablet 600 mg PO BEDTIME aspirin [Adult Low Dose Aspirin] 81 mg tablet,delayed release (DR/EC) 81 mg PO BEDTIME acetaminophen [Tylenol Extra Strength] 500 mg tablet 500 mg PO Q6H PRN (Reason: Pain) ferrous sulfate 325 mg (65 mg iron) tablet 325 mg PO BID trazodone 100 mg tablet 200 mg PO BEDTIME (DME) Wrist Brace Large Misc See Rx Instructions .ROUTE .MEDSUPPLY Qty: 2 0RF Rx Instructions: As directed (DME) blood sugar diagnostic Strip See Rx Instructions Not Applicable BID Qty: 10 Rx Instructions: As directed (DME) pen needle, diabetic 31 gauge x 3/16 needle See Rx Instructions .ROUTE BID Qty: 50 Rx Instructions: As directed (DME) pen needle, diabetic [UltiCare Pen Needle] 31 gauge x 5/16 needle See Rx Instructions subcut .MEDSUPPLY Qty: 1200 Rx Instructions: As directed pramipexole 1 mg tablet 1 mg PO BEDTIME Discontinued hydrochlorothiazide 12.5 mg tablet 12.5 mg PO DAILY furosemide 20 mg tablet 40 mg PO DAILY Discharge Orders: Discharge Order (Routine); Ordered 04/11/24 Ordered By: Natalie Pascual Diet: Diabetic diet Activity on Discharge: As tolerated Stand Alone Forms: Patient Portal Discharge page Print Language: Albanian Care Plan Goals: cardiac health Health Concerns: SVT hypoxia from atelectasis hypokalemia acute kidney injury/chronic kidney disease Plan of Treatment: Home with VNA services Consider assigning at healthcare proxy Start metoprolol succinate 50 mg twice daily STOP furosemide STOP hydrochlorothiazide Follow up with [facility] Cardiology in 2 weeks Please follow up with your primary care doctor within 1 week. Return to the hospital if you experience recurrent or worsening symptoms. Assessment: See Discharge Summary.
--- NOTE | 2024-04-11 11:08 | MHC.CM.PN ---
pt medically cleared for dc home w/[facility] for home pt, pt/hospitalist aware [facility] was the only [facility] offering and soc will be sunday 04/15, pt will use scooter for transport home
[2024-04-11] MEDS: Metoprolol Succinate ER 50 MG TAB.ER.24H PO (11:18)
[2024-04-11 11:31] LABS: Glucose, Whole Blood 96 mg/dL (60-115)
[2024-04-11 13:52] LABS: Adenovirus F 40/41 Not Detected (Not Detect.); Astrovirus Not Detected (Not Detect.); Campylobacter Not Detected (Not Detect.); Cryptosporidium Not Detected (Not Detect.); Cyclospora cayetanensis Not Detected (Not Detect.); E. coli EAEC Not Detected (Not Detect.); E. coli EPEC Not Detected (Not Detect.); E. coli ETEC Not Detected (Not Detect.); E. coli STEC Not Detected (Not Detect.); Entamoeba histolytica Not Detected (Not Detect.); Giardia lamblia Not Detected (Not Detect.); Norovirus GI/GII Not Detected (Not Detect.); Plesiomonas shigelloides Not Detected (Not Detect.); Rotavirus A Not Detected (Not Detect.); Salmonella Not Detected (Not Detect.); Sapovirus Not Detected (Not Detect.); Shigella sp./EIEC Not Detected (Not Detect.); Vibrio Not Detected (Not Detect.); Vibrio Cholerae Not Detected (Not Detect.); Yersinia enterocolitica Not Detected (Not Detect.)
== END 2024-04-11 11:44 | disposition home health service (06) | DRG 202 ==
LOC: HO.ED 14:28 → HO.EDOVER 15:27 → HO.IMC 15:51
PROVIDERS: Hospitalist; Internal Medicine; Nurse Practitioner Family; Physician Assistant Medical; Admitting Provider Physician Assistant; Emergency Provider Emergency Medicine; PCP Nurse Practitioner Primary Care; Visit Provider Family Medicine
DX: J20.9 Acute bronchitis, unspecified (principal); J96.01 Acute respiratory failure with hypoxia; I47.10 Supraventricular tachycardia, unspecified; I13.0 Hypertensive heart and chronic kidney disease with heart failure and stage 1 through stage 4 chronic kidney disease, or unspecified chronic kidney disease; I50.22 Chronic systolic (congestive) heart failure; N17.9 Acute kidney failure, unspecified; J98.11 Atelectasis; I25.10 Atherosclerotic heart disease of native coronary artery without angina pectoris; N18.30 Chronic kidney disease, stage 3 unspecified; E11.51 Type 2 diabetes mellitus with diabetic peripheral angiopathy without gangrene; E11.42 Type 2 diabetes mellitus with diabetic polyneuropathy; I49.3 Ventricular premature depolarization; E86.0 Dehydration; E11.22 Type 2 diabetes mellitus with diabetic chronic kidney disease; E87.6 Hypokalemia; F17.210 Nicotine dependence, cigarettes, uncomplicated; Z20.822 Contact with and (suspected) exposure to COVID-19; Z71.6 Tobacco abuse counseling; Z79.4 Long term (current) use of insulin; Z79.82 Long term (current) use of aspirin; Z79.899 Other long term (current) drug therapy
CPT/HCPCS: 0241U; 36415; 71046; 71250; 80048; 80076; 81001; 82947; 83605; 83735; 83880; 84145; 84443; 84484; 85025; 85610; 85730; 87040; 87070; 87205; 87449; 87493; 87507; 87633; 87899; 93005; 93306; 93970; 94640; 97162; 99285; J0696; J3475; J3480

== ENCOUNTER 2024-04-06 15:07 | Outpatient (BNV) | payer OTHER, SELFPAY | END 2024-04-08 07:00 | PROVIDERS: Admitting Provider Physician Assistant; Emergency Provider Emergency Medicine; PCP Nurse Practitioner Primary Care; Visit Provider Internal Medicine | DX: I35.8 Other nonrheumatic aortic valve disorders (principal); I42.2 Other hypertrophic cardiomyopathy | CPT/HCPCS: 93306 ==

== ENCOUNTER → 2024-04-06 15:07 | Outpatient (BNV) | payer OTHER, SELFPAY | PROVIDERS: Admitting Provider Physician Assistant; Emergency Provider Emergency Medicine; PCP Nurse Practitioner Primary Care; Visit Provider Physician Assistant | DX: E87.6 Hypokalemia (principal); I47.10 Supraventricular tachycardia, unspecified; N17.9 Acute kidney failure, unspecified | CPT/HCPCS: 99223; 99232; 99233; 99239; G0180 ==

== ENCOUNTER → 2024-04-06 15:07 | Outpatient (BNV) | payer OTHER, SELFPAY | PROVIDERS: Admitting Provider Physician Assistant; Emergency Provider Emergency Medicine; PCP Nurse Practitioner Primary Care; Visit Provider Internal Medicine Cardiovascular Disease | DX: I47.10 Supraventricular tachycardia, unspecified (principal); I49.3 Ventricular premature depolarization | CPT/HCPCS: 93010; 99222; 99233 ==

== ENCOUNTER → 2024-04-06 15:07 | Outpatient (BNV) | payer OTHER, SELFPAY | PROVIDERS: Admitting Provider Physician Assistant; Emergency Provider Emergency Medicine; PCP Nurse Practitioner Primary Care; Visit Provider Social Worker | DX: F33.0 Major depressive disorder, recurrent, mild (principal); Z13.30 Encounter for screening examination for mental health and behavioral disorders, unspecified | CPT/HCPCS: 99232 ==

== ENCOUNTER 2024-04-25 12:31 | Outpatient (AMB) | payer OTHER, SELFPAY ==
--- NOTE | 2024-04-25 12:43 | MHC.OFFVIS ---
Vital Signs 04/25/24 12:56 Height 5 ft 6 in Weight 179 lb 7.3 oz BMI 29.0 BP 114/60 Blood Pressure Location Lt brachial Position Sitting Pulse 60 Pulse Source Pulse Oximeter Intake Visit Reasons: Follow up [employer] Assistant Teacher Required: Yes [employer] Assistant Teacher Services: [employer] Assistant Teacher Present [employer] Assistant Teacher Name: Chano Swanson/tara/mongolian Accompanied by: Self / Same As Patient Allergies No Known Allergies [No Known Allergies*] Allergy (Verified 04/06/24 10:53) Medication List - Last Reconciled 04/25/24 by Armaan Almazan MD acetaminophen (Tylenol Extra Strength) 500 mg PO Q6H PRN amlodipine 5 mg PO DAILY arm brace (Wrist Brace Large) As directed aspirin (Adult Low Dose Aspirin) 81 mg PO BEDTIME blood sugar diagnostic As directed calcitriol 0.25 mcg PO MOWEFR@0900 cilostazol 100 mg PO BID 90 days clonazepam 0.5 mg PO BEDTIME clotrimazole 1% 1 appl topical BID empagliflozin (Jardiance) 25 mg PO DAILY ferrous sulfate 325 mg PO BID gabapentin 600 mg PO BEDTIME insulin glargine (Lantus Solostar U-100 Insulin) 8 units subcut DAILY metoprolol succinate ER 50 mg See Protocol PO BID pen needle, diabetic As directed pen needle, diabetic (UltiCare Pen Needle) As directed pramipexole 1 mg PO BEDTIME pravastatin 40 mg PO BEDTIME testosterone (AndroGel) 3 pumps transdermal DAILY 28 days tramadol 50 mg PO TID PRN trazodone 200 mg PO BEDTIME HPI Comments Details: Albert returns for follow-up regarding coronary artery disease. To recall, he came for elective back injection in 2018 due to back pain. Upon induction of anesthesia, he developed PEA type cardiac arrest. He was then successfully resuscitated. Elevated troponins at that time suggesting NSTEMI, probably from demand ischemia/infarct in the setting of hypoxia. Multiple vascular risk factors including diabetes on insulin, hypertension, dyslipidemia. He underwent cardiac catheterization but no interventions. Had nonobstructive CAD. Recently, he is admitted for pneumonia in that setting suspected to have SVT type episodes with short bursts. He was put on beta-blockers. It seems he also had some electrolyte issues. Clinically, he has got absolutely no symptoms at this time. [facility] Medical History Encounter for assessment of decision-making capacity Pneumonia Encounter for medication monitoring Depression Restless leg syndrome Peripheral neuropathy Personal history of nicotine dependence History of non-ST elevation myocardial infarction (NSTEMI) (~09/2018) History of cardiac arrest (~09/2018) Other and unspecified hyperlipidemia Essential hypertension Type 2 diabetes mellitus with unspecified complications Atherosclerotic cardiovascular disease Primary osteoarthritis, left hand Primary osteoarthritis, right hand Surgical History History of epidermal inclusion cyst excision (~07/2021) History of hand surgery (~03/2015) History of cataract surgery (~2017) History of cardiac catheterization (~10/2018) Family History Mother No problems noted. Mother No problems noted. 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 Review of Systems Const Denies chills, Denies fatigue, Denies fever(s), Denies weight gain and Denies weight loss ENT Denies dizziness Card Denies chest pain, Denies leg edema, Denies lightheadedness, Denies palpitations, Denies dyspnea on exertion, Denies orthopnea and Denies other Resp Denies cough and Denies dyspnea on exertion GI Denies hematochezia and Denies change in stool character Musc Denies abnormal gait, Denies muscle weakness, Denies numbness, Denies radiating pain into limb and Denies tingling Neuro Denies abnormal gait, Denies dizziness, Denies numbness and Denies tingling Endo Denies fatigue and Denies palpitations Physical Exam Vital Signs: Last Vital Signs Pulse 60 04/25/24 12:56 BP 114/60 04/25/24 12:56 BMI result Body Mass Index 29.0 Const General: comfortable and no acute distress Orientation/consciousness: patient oriented x3 HEENT Other: Unremarkable Head: Yes normal to inspection Neck Neck: Yes normal visual inspection Chest Chest palpation & inspection: normal inspection of the chest Resp Auscultation: clear to auscultation bilaterally Cardio Palpation: normal PMI Heart sounds: S1 normal heart sound present, S2 normal heart sound present, no gallops, no murmurs and no rubs GI Palpation (GI): Soft to palpation Back/Spine/Pelvis Other: unremarkable Skin General skin exam: no rashes or lesions noted Neuro General: patient oriented x3 Extrem General: Yes normal to inspection Psych Mental Status: mental status grossly normal Assessment & Plan Assessment & Plan (1) Atherosclerotic cardiovascular disease: Code(s): I25.10 - Atherosclerotic heart disease of [place] coronary artery without angina pectoris Category: Medical Plan: Cardiac catheterization - 2018- mid LAD 60% stenosis; mid RCA 65-70% stenosi but IFR/FFR negative. [id number] 50-55%; basal inferior/inferolateral hypokinesis. No significant valvular findings. Thought to be similar to prior. Myocardial perfusion imaging study, 2022-likely normal perfusion. Clinically, no angina. On aspirin, beta-blockers and statins. LDL well controlled. (2) SVT (supraventricular tachycardia): Code(s): I47.10 - Supraventricular tachycardia, unspecified Category: Medical Plan: Unclear if he was having SVT type episodes or ventricular. Could also be supraventricular with aberrancy. He was put on beta-blockers. Clinically, no symptoms. Check Holter. (3) Type 2 diabetes mellitus with unspecified complications: Code(s): E11.8 - Type 2 diabetes mellitus with unspecified complications Category: Medical Plan: Listed to be on insulin and Jardiance. (4) Essential hypertension: Code(s): I10 - Essential (primary) hypertension Category: Medical Plan: On amlodipine. (5) Other and unspecified hyperlipidemia: Code(s): E78.5 - Hyperlipidemia, unspecified Category: Medical Plan: On statins. Well-controlled cholesterol. Coding Level of Care Code Est Pt Level 4 (79522) Diagnoses Atherosclerotic cardiovascular disease I25.10 SVT (supraventricular tachycardia) I47.10 Type 2 diabetes mellitus with unspecified complications E11.8 Essential hypertension I10 Other and unspecified hyperlipidemia E78.5
[2024-04-25 12:56] VITALS: BP 114/60; PULSE 60; BMI 29.0
== END 2024-04-25 13:14 | disposition home or self-care (01) ==
PROVIDERS: PCP Nurse Practitioner Primary Care; Visit Provider Internal Medicine
DX: I25.10 Atherosclerotic heart disease of native coronary artery without angina pectoris (principal); I47.10 Supraventricular tachycardia, unspecified; E11.8 Type 2 diabetes mellitus with unspecified complications; I10 Essential (primary) hypertension; E78.5 Hyperlipidemia, unspecified
CPT/HCPCS: 99214

== ENCOUNTER → 2024-04-25 12:31 | Outpatient (BNVA) | payer OTHER, SELFPAY | PROVIDERS: PCP Nurse Practitioner Primary Care; Visit Provider Internal Medicine | DX: I25.10 Atherosclerotic heart disease of native coronary artery without angina pectoris (principal); I10 Essential (primary) hypertension; I47.10 Supraventricular tachycardia, unspecified; E78.5 Hyperlipidemia, unspecified; F17.210 Nicotine dependence, cigarettes, uncomplicated | CPT/HCPCS: 99212 ==

== ENCOUNTER 2024-05-15 09:00 | Outpatient (AMB) | payer OTHER, SELFPAY ==
[2024-05-15 09:03] VITALS: BP 108/60; PULSE 76; BMI 31.0
--- NOTE | 2024-05-15 09:03 | A.OFFVIS_ITS ---
Vital Signs 05/15/24 09:03 Height 5 ft 6 in Weight 192 lb 3.889 oz BMI 31.0 BP 108/60 Blood Pressure Location Rt brachial Position Sitting Pulse 76 Pulse Source Pulse Oximeter Intake Visit Reasons: Bilateral LE Edema Environmental Services Director Required: Yes Environmental Services Director Name: [email or web address] Accompanied by: Grand Child Allergies No Known Allergies [No Known Allergies*] Allergy (Verified 04/06/24 10:53) Medication List - Last Reconciled 05/15/24 by Armaan Almazan MD acetaminophen (Tylenol Extra Strength) 500 mg PO Q6H PRN amlodipine 5 mg PO DAILY arm brace (Wrist Brace Large) As directed aspirin (Adult Low Dose Aspirin) 81 mg PO BEDTIME blood sugar diagnostic As directed calcitriol 0.25 mcg PO MOWEFR@0900 cilostazol 100 mg PO BID 90 days clonazepam 0.5 mg PO BEDTIME clotrimazole 1% 1 appl topical BID empagliflozin (Jardiance) 25 mg PO DAILY ferrous sulfate 325 mg PO BID gabapentin 600 mg PO BEDTIME insulin glargine (Lantus Solostar U-100 Insulin) 8 units subcut DAILY metoprolol succinate ER 50 mg See Protocol PO BID pen needle, diabetic As directed pen needle, diabetic (UltiCare Pen Needle) As directed pramipexole 1 mg PO BEDTIME pravastatin 40 mg PO BEDTIME testosterone (AndroGel) 3 pumps transdermal DAILY 28 days tramadol 50 mg PO TID PRN trazodone 200 mg PO BEDTIME HPI Comments Details: Albert returns for follow-up regarding coronary artery disease. To recall, he came for elective back injection in 2018 due to back pain. Upon induction of anesthesia, he developed PEA type cardiac arrest. He was then successfully resuscitated. Elevated troponins at that time suggesting NSTEMI, probably from demand ischemia/infarct in the setting of hypoxia. Multiple vascular risk factors including diabetes on insulin, hypertension, dyslipidemia. He underwent cardiac catheterization but no interventions. Had nonobstructive CAD. Recently, he is admitted for pneumonia in that setting suspected to have SVT type episodes with short bursts. He was put on beta-blockers. It seems he also had some electrolyte issues. At that time, had SUSHILA and hence diuretics were stopped. Now he has been referred back stating that his legs are getting swollen up. Apparently he is not urinating much. No other symptoms. [facility] Medical History Encounter for assessment of decision-making capacity Pneumonia Encounter for medication monitoring Depression Restless leg syndrome Peripheral neuropathy Personal history of nicotine dependence History of non-ST elevation myocardial infarction (NSTEMI) (~09/2018) History of cardiac arrest (~09/2018) Other and unspecified hyperlipidemia Essential hypertension Type 2 diabetes mellitus with unspecified complications Atherosclerotic cardiovascular disease Primary osteoarthritis, left hand Primary osteoarthritis, right hand Surgical History History of epidermal inclusion cyst excision (~07/2021) History of hand surgery (~03/2015) History of cataract surgery (~2017) History of cardiac catheterization (~10/2018) Family History Mother No problems noted. Mother No problems noted. 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 Review of Systems Const Denies chills, Denies fatigue, Denies fever(s), Denies weight gain and Denies weight loss ENT Denies dizziness Card Denies chest pain, Reports leg edema, Denies lightheadedness, Denies palpitations, Denies dyspnea on exertion, Denies orthopnea and Denies other Resp Denies cough and Denies dyspnea on exertion GI Denies hematochezia and Denies change in stool character Musc Denies abnormal gait, Denies muscle weakness, Denies numbness, Denies radiating pain into limb and Denies tingling Neuro Denies abnormal gait, Denies dizziness, Denies numbness and Denies tingling Endo Denies fatigue and Denies palpitations Physical Exam Vital Signs: Last Vital Signs Pulse 76 05/15/24 09:03 BP 108/60 05/15/24 09:03 BMI result Body Mass Index 31.0 Const General: comfortable and no acute distress Orientation/consciousness: patient oriented x3 HEENT Other: Unremarkable Head: Yes normal to inspection Neck Neck: Yes normal visual inspection Chest Chest palpation & inspection: normal inspection of the chest Resp Auscultation: crackles Cardio Palpation: normal PMI Heart sounds: S1 normal heart sound present, S2 normal heart sound present, no gallops, no murmurs and no rubs GI Palpation (GI): Soft to palpation Back/Spine/Pelvis Other: unremarkable Skin General skin exam: no rashes or lesions noted Neuro General: patient oriented x3 Extrem Other: 1+ edema with chronic changes; induration Psych Mental Status: mental status grossly normal Assessment & Plan Assessment & Plan (1) Atherosclerotic cardiovascular disease: Code(s): I25.10 - Atherosclerotic heart disease of [place] coronary artery without angina pectoris Category: Medical Plan: Cardiac catheterization - 2018- mid LAD 60% stenosis; mid RCA 65-70% stenosi but IFR/FFR negative. [id number] 50-55%; basal inferior/inferolateral hypokinesis. No significant valvular findings. Thought to be similar to prior. Myocardial perfusion imaging study, 2022-likely normal perfusion. Clinically, no angina. On aspirin, beta-blockers and statins. LDL well controlled. (2) SVT (supraventricular tachycardia): Code(s): I47.10 - Supraventricular tachycardia, unspecified Category: Medical Plan: Unclear if he was having SVT type episodes or ventricular. Could also be supraventricular with aberrancy. He was put on beta-blockers. Clinically, no symptoms. Holter is pending. (3) Type 2 diabetes mellitus with unspecified complications: Code(s): E11.8 - Type 2 diabetes mellitus with unspecified complications Category: Medical Plan: Listed to be on insulin and Jardiance. (4) Essential hypertension: Code(s): I10 - Essential (primary) hypertension Category: Medical Plan: On amlodipine. (5) Other and unspecified hyperlipidemia: Code(s): E78.5 - Hyperlipidemia, unspecified Category: Medical Plan: On statins. Well-controlled cholesterol. (6) Leg swelling: Code(s): M79.89 - Other specified soft tissue disorders Category: Medical Plan: Per documentation, he was on Lasix 40 mg daily. During recent hospitalization for pneumonia, there was a rise in creatinine and hence it seems diuretics were stopped. As he is getting leg swelling and reduced urination, can resume. Check BMP in a couple of weeks. Discussed with grandson. Orders: Orders Basic Metabolic Panel 2 Weeks E87.6 - Hypokalemia, N17.9 - Acute kidney failure, unspecified ECG 3 day holter monitor 2 Months I47.10 - Supraventricular tachycardia, unspecified Medications: New furosemide (Lasix) 40 mg PO DAILY 90 tabs 0RF Coding Level of Care Code Est Pt Level 4 (37649) Diagnoses Atherosclerotic cardiovascular disease I25.10 SVT (supraventricular tachycardia) I47.10 Type 2 diabetes mellitus with unspecified complications E11.8 Essential hypertension I10 Other and unspecified hyperlipidemia E78.5 Leg swelling M79.89
== END 2024-05-15 09:28 | disposition home or self-care (01) ==
PROVIDERS: PCP Nurse Practitioner Primary Care; Visit Provider Internal Medicine
DX: I25.10 Atherosclerotic heart disease of native coronary artery without angina pectoris (principal); I47.10 Supraventricular tachycardia, unspecified; E11.8 Type 2 diabetes mellitus with unspecified complications; I10 Essential (primary) hypertension; E78.5 Hyperlipidemia, unspecified; M79.89 Other specified soft tissue disorders
CPT/HCPCS: 99214

== ENCOUNTER → 2024-05-15 09:00 | Outpatient (BNVA) | payer OTHER, SELFPAY | PROVIDERS: PCP Nurse Practitioner Primary Care; Visit Provider Internal Medicine | DX: I25.10 Atherosclerotic heart disease of native coronary artery without angina pectoris (principal); I47.10 Supraventricular tachycardia, unspecified; I10 Essential (primary) hypertension; E78.5 Hyperlipidemia, unspecified; E11.8 Type 2 diabetes mellitus with unspecified complications; M79.89 Other specified soft tissue disorders | CPT/HCPCS: 99212 ==

== ENCOUNTER 2024-05-16 11:04 | Emergency (ER) | payer OTHER, SELFPAY ==
--- NOTE | ~2024-05-16 | XR_ITS ---
EXAMINATION: 2 VIEW CHEST AND KUB CLINICAL INFORMATION: Question fluid overload and constipation with abdominal distention. COMPARISON: CT chest and chest radiograph 04/06/2024 TECHNIQUE: 2 view chest, single view abdomen FINDINGS: The heart and pulmonary vessels appear normal. There is been improvement in the right lower lobe atelectasis with some still remaining. No consolidations or pleural effusions. There is no evidence of CHF. There is mild gaseous distention of the stomach and colon which are not dilated. No evidence of bowel obstruction. No unusual calcifications are seen. The vas deferens are calcified. Iliofemoral arterial calcification is present. Posterior pedicular screws are noted at L4-L5. XR/XR KUB IMPRESSION: 1. No evidence of CHF. 2. Mild gaseous distention of the stomach and colon without evidence of bowel obstruction.
--- NOTE | ~2024-05-16 | XR_ITS ---
EXAMINATION: 2 VIEW CHEST AND KUB CLINICAL INFORMATION: Question fluid overload and constipation with abdominal distention. COMPARISON: CT chest and chest radiograph 04/06/2024 TECHNIQUE: 2 view chest, single view abdomen FINDINGS: The heart and pulmonary vessels appear normal. There is been improvement in the right lower lobe atelectasis with some still remaining. No consolidations or pleural effusions. There is no evidence of CHF. There is mild gaseous distention of the stomach and colon which are not dilated. No evidence of bowel obstruction. No unusual calcifications are seen. The vas deferens are calcified. Iliofemoral arterial calcification is present. Posterior pedicular screws are noted at L4-L5. XR/XR chest 2V IMPRESSION: 1. No evidence of CHF. 2. Mild gaseous distention of the stomach and colon without evidence of bowel obstruction.
[2024-05-16 11:25] VITALS: BP 115/56; PULSE 72; RESP 16; TEMP 36.2; O2SAT 95; BMI 30.2
--- NOTE | 2024-05-16 11:25 | ED.GENADULT ---
HPI - General Adult General Chief complaint: General Medical Stated complaint: swollen legs Time Seen by Provider: 05/16/24 13:16 Source: patient and family (grandson) Mode of arrival: ambulatory Limitations: no limitations History of Present Illness ED Provider: anastasiia HPI narrative: Patient is a 74-year old male with history of CAD, NSTEMI, DM, diabetic neuropathy, arthritis, congestive heart failure with rEF, tobacco smoker, hypertension presenting to the emergency department with complaint of bilateral lower leg swelling for the past year. Grandson states that the swelling has recently worsened. Patient also complains of swelling to his penis and testicles. He reports intermittent chest pain and associated dyspnea but denies any currently. He reports constipation for the past 5 days but did have normal bowel movement this morning. Denies abdominal pain, nausea, vomiting. Denies fevers. Grandson states primary concern is leg swelling. He reports that patient was previously on 40 mg of Lasix daily but was taken off of that when he was admitted here in March due to SUSHILA. Grandson states that the patient saw his radial drill press set up operator yesterday who felt it was safe for patient to restart the furosemide and spoke with patient's PCP who was supposed to send a new prescription. He states patient does not have any furosemide at home and has not received call from the pharmacy that a new prescription is there yet, so has not restarted the lasix yet. complaint: leg swelling Onset (ago): year(s) Location: lower extremity Quality: aching Related Data Home Medications ?Medication ?Instructions ?Recorded ?Confirmed acetaminophen 500 mg tablet 500 mg PO Q6H PRN Pain 08/12/20 05/15/24 (Tylenol Extra Strength) aspirin 81 mg tablet,delayed 81 mg PO BEDTIME 08/12/20 05/15/24 release (Adult Low Dose Aspirin) ferrous sulfate 325 mg (65 mg 325 mg PO BID 08/12/20 05/15/24 iron) tablet trazodone 100 mg tablet 200 mg PO BEDTIME 08/12/20 05/15/24 amlodipine 5 mg tablet 5 mg PO DAILY 11/19/20 05/15/24 gabapentin 600 mg tablet 600 mg PO BEDTIME 11/19/20 05/15/24 pravastatin 40 mg tablet 40 mg PO BEDTIME 11/19/20 05/15/24 blood sugar diagnostic #10 ea 03/09/21 05/15/24 pen needle, diabetic 31 gauge x #50 ea 03/09/21 05/15/2412/22 pen needle, diabetic 31 gauge x #1,200 ea 12/17/21 05/15/2402/21 (UltiCare Pen Needle) pramipexole 1 mg tablet 1 mg PO BEDTIME 05/18/23 05/15/24 calcitriol 0.25 mcg capsule 0.25 mcg PO MOWEFR@0900 04/06/24 05/15/24 clonazepam 0.5 mg tablet 0.5 mg PO BEDTIME 04/06/24 05/15/24 clotrimazole 1 % topical cream 1 appl topical BID 04/06/24 05/15/24 empagliflozin 25 mg tablet 25 mg PO DAILY 04/06/24 05/15/24 (Jardiance) insulin glargine 100 unit/mL (3 8 unit subcut DAILY 04/06/24 05/15/24 mL) subcutaneous pen (Lantus Solostar U-100 Insulin) Previous Rx's ?Medication ?Instructions ?Recorded arm brace (Wrist Brace Large) #2 ea 08/12/20 cilostazol 100 mg tablet 100 mg PO BID 90 days #180 tabs 09/26/23 testosterone (AndroGel) 3 pump transdermal DAILY 28 days 02/22/24 #150 grams tramadol 50 mg tablet 50 mg PO TID PRN pain #90 tabs 04/01/24 metoprolol succinate 50 mg 50 mg PO BID #60 tabs 04/11/24 tablet,extended release 24 hr furosemide 40 mg tablet (Lasix) 40 mg PO DAILY #90 tabs 05/15/24 Allergies Allergy/AdvReac Type Severity Reaction Status Date / Time No Known Allergies Allergy Verified 05/16/24 11:30 [No Known Allergies*] Review of Systems Review of Systems: As per HPI. Yes all other systems are reviewed and are negative PMFSH Past Medical History Medical History Encounter for assessment of decision-making capacity Pneumonia Encounter for medication monitoring Depression Restless leg syndrome Peripheral neuropathy Personal history of nicotine dependence History of non-ST elevation myocardial infarction (NSTEMI) (~09/2018) History of cardiac arrest (~09/2018) Other and unspecified hyperlipidemia Essential hypertension 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 Mother No problems noted. 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 Blood pressure low. Heart rate normal. Respiratory rate normal. Temperature normal. Oxygen saturation normal. Extrem Right lower extremity: lower leg Details: erythema Location: of the mid lower leg and pitting edema Details: 1+ and foot Details: vascular exam Details: dorsalis pedis pulse present and posterior tibial pulse present Left lower extremity: lower leg Details: erythema Location: of the mid lower leg and pitting edema Details: 1+ and foot Details: vascular exam Details: dorsalis pedis pulse present and posterior tibial pulse present Course Course Course Narrative: This is a Rapid Medical Examination (RME) performed by Jefferson Verdin PA-C in triage. Full HPI, ROS, assessment and treatment plan per primary provider in the Main ED. 74 yo male hx arthritis, CHF on 20 of Lasix daily, tobacco smoker, hypertension, diabetes here w/ grandson from yearly [facility] physical for eval of multiple complaints. reports b/l LE swelling x1 yr w/ assoc chest pain, sob. pt taken off lasix 1 mo ago d/t SUSHILA. has not restarted it. admits to constipation x5 days w/ BM this morning. admits to inc urinary freq. +abd distended, soft, NT. erythema noted to b/l LEs, no pitting edema. Plan: labs, ekg, cxr Medications Administered Discontinued Medications Generic Name Dose Route Start Last Admin Trade Name Freq PRN Reason Stop Dose Admin Furosemide 20 mg 05/16/24 17:52 05/16/24 18:07 Furosemide 20 Mg/2 Ml Vial IVPUSH 05/16/24 17:53 20 mg ONCE ONE Administration Protocol Medical Decision Making Medical Decision Making [facility] Narrative: Patient is a 74-year old male with history of CAD, NSTEMI, DM, diabetic neuropathy, arthritis, congestive heart failure with rEF, tobacco smoker, hypertension presenting to the emergency department with complaint of bilateral lower leg swelling for the past year. On exam patient is awake, A+Ox3, VS WNL, afebrile, normal neurological exam without focal deficits, physical exam findings as above. Given reported symptoms and physical exam findings, initial differential includes CHF exacerbation, lower extremity edema, ACS, pneumonia. Labs unremarkable other than troponin of 10.7 which was down trending on repeat. X-ray chest notable for no evidence of CHF. KUB shows no evidence of obstruction. My interpretation is in agreement with the radiologist's interpretation. Urinalysis is without evidence of infection. Review of EMR notable for visit with radial drill press set up operator, Dr. Almazan, yesterday which notes new prescription for furosemide, 90 day supply. Unable to confirm with [facility] whether this prescription was received due to the pharmacy being closed at this time. Patient medicated with IV dose of furosemide today. Instructed patient and grandson to contact the pharmacy in the morning to see if prescription is available and if not, to contact the cardiology office. Follow-up with PCP. Return precautions discussed at bedside. Patient verbalized understanding of and agreement with plan. Differential Diagnosis Differential Diagnoses: The differential diagnosis associated with the presentation includes As per [facility] Admission/Observation Consideration of admission/observation: Escalation of care including admission/observation considered Patient would have been admitted to the hospital had their work up had any findings where hospital admission was appropriate and their clinical presentation warranted hospital admission. Lab Data [facility] Lab Attestation statement: I reviewed the patient's lab results. As per [facility] 05/16/24 11:49 05/16/24 11:49 Labs: Lab Results 05/16/24 05/16/24 05/16/24 Range/Units 11:49 18:13 18:32 WBC 7.8 (4.8-10.8) X10*3/uL RBC 4.05 L (4.60-5.80) X10*6/uL Hgb 14.0 (14.0-18.0) g/dl Hct 41.2 L (42.0-52.0) % MCV 101.7 H (80.0-98.0) fL MCH 34.6 H (27.0-33.0) pg MCHC 34.0 (31.0-36.0) g/dl RDW 14.4 (11.0-16.0) % Plt Count 231 (160-400) X10*3/uL MPV 8.8 L (9.4-12.4) fL Immature Gran % (Auto) 0.4 (0.0-0.4) % Neut % (Auto) 68.9 (45-73) % Lymph % (Auto) 19.6 L (20-40) % Walsh % (Auto) 7.8 (2-11) % Eos % (Auto) 2.8 (0-4) % Baso % (Auto) 0.5 (0-2) % Lymph # (Auto) 1.5 (1.2-4.9) X10*3/uL Walsh # (Auto) 0.6 (0.1-1.2) X10*3/uL Eos # (Auto) 0.2 (0.0-0.4) X10*3/uL Baso # (Auto) 0.0 (0.0-0.2) X10*3/uL Abs Immat Gran (auto) 0.03 (0.00-0.03) X10*3/uL Absolute Neuts (auto) 5.4 (2.0-8.3) x10*3/uL Absolute Nucleated RBC 0.000 (0.0-0.012) X10*3/uL Nucleated RBC % (auto) 0.0 (0.0-0.2) /100WBC Sodium 138 (135-145) mmol/L Potassium 4.9 (3.3-5.1) mmol/L Chloride 104 (96-108) mmol/L Carbon Dioxide 29 (22-29) mmol/L Anion Gap 10 L (12-20) BUN 10 (9-16) mg/dL Creatinine 1.03 (0.5-1.4) mg/dL Estim Creat Clear Calc 64.2 Estimated GFR > 60 Random Glucose 121 H (60-115) mg/dL Calcium 9.4 (8.4-10.2) mg/dL Magnesium 1.6 (1.6-2.6) mg/dL Total Bilirubin 0.7 (0.0-1.0) mg/dL AST 15 (5-37) U/L ALT 11 (0-40) U/L Alkaline Phosphatase 136 H (39-117) U/L Troponin I High Sens 10.7 D 9.7 (<3.5-35.0) ng/L B-Natriuretic Peptide 26 (<100) pg/mL Total Protein 6.6 (6.5-8.0) g/dL Albumin 3.6 (3.5-5.0) g/dL Lipase 19 (8-78) U/L Urine Color Yellow Urine Appearance Clear Urine pH 7.0 (5.0-9.0) Ur Specific Crawford 1.015 (1.005-1.025) Urine Protein Negative (Neg-Trace) mg/dL Urine Glucose (UA) >=1000 H (Negative) mg/dL Urine Ketones Negative (Negative) mg/dL Urine Blood Negative (Negative) Urine Nitrite Negative (Negative) Ur Leukocyte Esterase Negative (Negative) Urine RBC 0-2 (0-2) /HPF Urine WBC 0-5 (0-5) /HPF Ur Squamous Epith Cells 0-2 (0-2) /HPF Urine Bacteria None Seen (None Seen) Hyaline Casts 0-2 (0-2) /LPF Independent Interpretation I performed an independent interpretation of an: Plain X-Ray Interpretation: X-ray chest notable for no evidence of CHF. KUB shows no evidence of obstruction. Radiology Impression Discussion of test interpretation with radiology: I have reviewed the radiologist's reading. Radiologist Impression: XR/XR chest 2V IMPRESSION: 1. No evidence of CHF. 2. Mild gaseous distention of the stomach and colon without evidence of bowel obstruction. External Record Review External record reviewed: Inpatient record, Office record and Outpatient record Prescription Management I considered prescription management with: Other Discharge Plan Discharge Clinical Impression: Bilateral edema of lower extremity Patient Disposition: Home, Self-Care Instructions: Heart Failure (DC), Leg Edema (ED) Additional Instructions: You were evaluated in the emergency department today for lower leg swelling. Your evaluation did not show evidence of conditions requiring emergent medical treatment at this time. You were given a dose of furosemide (Lasix) in the ED today. It appears that your radial drill press set up operator, Dr. Almazan, sent a new prescription for furosemide to the pharmacy after your office visit yesterday. Call [facility] in the morning to see if this prescription is ready and if not, contact the cardiology office. You should follow up with your primary care provider this week as well. Return to the emergency department if you develop chest pain, difficulty breathing, fever, dizziness or lightheadedness, fainting or any other new or concerning symptoms. Prescriptions: No Action cilostazol 100 mg tablet 100 mg PO BID 90 Days Qty: 180 3RF testosterone [AndroGel] 20.25 mg/1.25 gram (1.62 %) gel in metered-dose pump 3 pump transdermal DAILY 28 Days Qty: 150 5RF Rx Instructions: apply 3 pump daily alternating arms. Rub in until dry - aplique 3 bombas diarias alternando brazos. Frote hasta que se seque. tramadol 50 mg tablet 50 mg PO TID PRN (Reason: pain) Qty: 90 2RF clonazepam 0.5 mg tablet 0.5 mg PO BEDTIME clotrimazole 1 % cream 1 appl topical BID calcitriol 0.25 mcg capsule 0.25 mcg PO MOWEFR@0900 insulin glargine [Lantus Solostar U-100 Insulin] 100 unit/mL (3 mL) insulin pen 8 unit subcut DAILY Jardiance 25 mg tablet 25 mg PO DAILY metoprolol succinate 50 mg Tablet Extended Release 24 Hr 50 mg PO BID Qty: 60 0RF Protocol: Hold for SBP/HR < HOLD for SBP < : 90 HOLD for HR < : 60 amlodipine 5 mg tablet 5 mg PO DAILY pravastatin 40 mg tablet 40 mg PO BEDTIME gabapentin 600 mg tablet 600 mg PO BEDTIME aspirin [Adult Low Dose Aspirin] 81 mg tablet,delayed release (DR/EC) 81 mg PO BEDTIME acetaminophen [Tylenol Extra Strength] 500 mg tablet 500 mg PO Q6H PRN (Reason: Pain) ferrous sulfate 325 mg (65 mg iron) tablet 325 mg PO BID trazodone 100 mg tablet 200 mg PO BEDTIME (DME) Wrist Brace Large Misc See Rx Instructions .ROUTE .MEDSUPPLY Qty: 2 0RF Rx Instructions: As directed (DME) blood sugar diagnostic Strip See Rx Instructions Not Applicable BID Qty: 10 Rx Instructions: As directed (DME) pen needle, diabetic 31 gauge x 3/16 needle See Rx Instructions .ROUTE BID Qty: 50 Rx Instructions: As directed (DME) pen needle, diabetic [UltiCare Pen Needle] 31 gauge x 5/16 needle See Rx Instructions subcut .MEDSUPPLY Qty: 1200 Rx Instructions: As directed pramipexole 1 mg tablet 1 mg PO BEDTIME furosemide [Lasix] 40 mg tablet 40 mg PO DAILY Qty: 90 0RF Print Language: [place]alander
--- NOTE | 2024-05-16 11:30 | ECG_ITS ---
Test Reason : short of breath Blood Pressure : / mmHG Vent. Rate : 073 BPM Atrial Rate : 073 BPM P-R Int : 186 ms QRS Dur : 068 ms QT Int : 396 ms P-R-T Axes : 026 -13 -14 degrees QTc Int : 436 ms Sinus rhythm with Premature supraventricular complexes Septal infarct , age undetermined Possible Inferior infarct , age undetermined Abnormal ECG When compared to the previous EKG of Premature ventricular complexes are no longer Present Referred By: Roselia Verdin Electronically Signed By:RIVERA MONROE MD
[2024-05-16 11:54] LABS: MANUAL DIFF FLAG NO
[2024-05-16 11:55] LABS: Basophils Percent Auto 0.5 % (0-2); Eosinophils Absolute Auto 0.2 X10*3/uL (0.0-0.4); Eosinophils Percent Auto 2.8 % (0-4); Hematocrit 41.2 % (42.0-52.0); Imm Gran Abs Auto 0.03 X10*3/uL (0.00-0.03); Imm Gran Pct Auto 0.4 % (0.0-0.4); Lymphocytes Absolute Auto 1.5 X10*3/uL (1.2-4.9); Lymphocytes Percent Auto 19.6 % (20-40); Mean Corpuscular Hemoglobin 34.6 pg (27.0-33.0); Mean Corpuscular Volume 101.7 fL (80.0-98.0); Mean Platelet Volume 8.8 fL (9.4-12.4); Monocytes Absolute Auto 0.6 X10*3/uL (0.1-1.2); Monocytes Percent Auto 7.8 % (2-11); Neutrophils Absolute Auto 5.4 x10*3/uL (2.0-8.3); Neutrophils Percent Auto 68.9 % (45-73); Platelet Count 231 X10*3/uL (160-400); Red Blood Count 4.05 X10*6/uL (4.60-5.80); Red Cell Distribution Width 14.4 % (11.0-16.0); White Blood Count 7.8 X10*3/uL (4.8-10.8)
[2024-05-16 12:18] LABS: Alanine Aminotransferase 11 U/L (0-40); Albumin Level 3.6 g/dL (3.5-5.0); Alkaline Phosphatase 136 U/L (39-117); Anion Gap 10 (12-20); Aspartate Amino Transferase 15 U/L (5-37); Bilirubin Total 0.7 mg/dL (0.0-1.0); Blood Urea Nitrogen 10 mg/dL (9-16); Calcium 9.4 mg/dL (8.4-10.2); Carbon Dioxide 29 mmol/L (22-29); Chloride 104 mmol/L (96-108); Creatinine Clr Calc Pharmacy 64.2; Estimated Glomerular Filt Rate > 60; Glucose Random 121 mg/dL (60-115); Lipase 19 U/L (8-78); Magnesium 1.6 mg/dL (1.6-2.6); Potassium 4.9 mmol/L (3.3-5.1); Sodium 138 mmol/L (135-145); Total Protein 6.6 g/dL (6.5-8.0)
[2024-05-16 12:22] LABS: B Type Natriuretic Peptide 26 pg/mL (<100)
[2024-05-16 12:25] LABS: Troponin-I High Sensitivity 10.7 ng/L (<3.5-35.0)
[2024-05-16 17:46] VITALS: BP 102/42; PULSE 73; RESP 16; TEMP 36.4; O2SAT 94
[2024-05-16 18:07] VITALS: BP 102/42
[2024-05-16] MEDS: Furosemide 20 MG/2 ML VIAL IVPUSH (18:07)
[2024-05-16 18:19] LABS: Appearance Urine Clear; Color Urine Yellow; Glucose Urine UA >=1000 mg/dL (Negative); Leukocyte Esterase Urine Negative (Negative); Nitrite Urine Negative (Negative); Specific Gravity - Urine 1.015 (1.005-1.025); UMIC TRIGGER UACC YES; Urine Blood Negative (Negative); Urine Ketones Negative (Negative); Urine Protein Negative (Neg-Trace)
[2024-05-16 18:27] LABS: Bacteria Urine None Seen (None Seen); Hyaline Casts Urine 0-2 /LPF (0-2); RBC Urine 0-2 /HPF (0-2); Squamous Epithelial Cell Urine 0-2 /HPF (0-2); WBC Urine 0-5 /HPF (0-5)
[2024-05-16 18:56] LABS: Troponin-I High Sensitivity 9.7 ng/L (<3.5-35.0)
[2024-05-16 20:30] VITALS: BP 107/63; PULSE 85; RESP 17; O2SAT 95
[2024-05-16 20:32] VITALS: BP 107/63; PULSE 85; RESP 17; TEMP 36.6; O2SAT 95
== END 2024-05-16 20:32 | disposition home or self-care (01) ==
PROVIDERS: Physician Assistant Medical; Registered Nurse Emergency; Emergency Provider Emergency Medicine; PCP Nurse Practitioner Primary Care
DX: R60.0 Localized edema (principal); R06.02 Shortness of breath; K59.00 Constipation, unspecified; E11.9 Type 2 diabetes mellitus without complications; I10 Essential (primary) hypertension; E78.5 Hyperlipidemia, unspecified; F17.210 Nicotine dependence, cigarettes, uncomplicated; Z79.899 Other long term (current) drug therapy; Z79.4 Long term (current) use of insulin; Z79.02 Long term (current) use of antithrombotics/antiplatelets
CPT/HCPCS: 36415; 71046; 74018; 80053; 81001; 83690; 83735; 83880; 84484; 85025; 93005; 96374; 99284; 99285; J1940

== ENCOUNTER → 2024-05-16 11:30 | Outpatient (BNV) | payer OTHER, SELFPAY | PROVIDERS: Emergency Provider Emergency Medicine; PCP Nurse Practitioner Primary Care; Visit Provider Internal Medicine Cardiovascular Disease | DX: R06.02 Shortness of breath (principal); R94.31 Abnormal electrocardiogram [ECG] [EKG] | CPT/HCPCS: 93010 ==

== ENCOUNTER → 2024-06-12 13:03 | Outpatient (REF) | payer OTHER, SELFPAY ==
--- NOTE | 2024-06-12 13:08 | HM_ITS ---
* Total monitoring time 3 days. * Underlying rhythm is sinus with an average rate of 52/Min. About 74% of the time, rate < 60/Min. * Frequent supraventricular ectopy with a burden of 4.6%. * Frequent ventricular ectopy with a burden of 2.4%. Brief runs noted. * Idioventricular rhythm noted during night hours as well as during day. * No significant pauses or high-grade AV blocks. * No patient markers or diary events. MTDD
== END ==
LOC: HO.CARD 13:03
PROVIDERS: Visit Provider Internal Medicine
DX: I47.10 Supraventricular tachycardia, unspecified (principal)
CPT/HCPCS: 93242

== ENCOUNTER → 2024-06-12 13:08 | Outpatient (BNV) | payer OTHER, SELFPAY | PROVIDERS: Visit Provider Internal Medicine | DX: I47.10 Supraventricular tachycardia, unspecified (principal); I49.3 Ventricular premature depolarization | CPT/HCPCS: 93244 ==

== ENCOUNTER 2024-07-21 11:47 | Emergency (ER) | payer OTHER, SELFPAY ==
--- NOTE | ~2024-07-21 | XR_ITS ---
EXAMINATION: XR HUMERUS, LEFT CLINICAL INFORMATION: Pain following fall COMPARISON: None available. TECHNIQUE: AP and lateral views of the left humerus. FINDINGS: The bones and soft tissues are normal. No fracture. Imaged portions of the shoulder and elbow are unremarkable. XR/XR humerus LT IMPRESSION: Normal left humerus. Electronically signed by: Chun Graham MD 07/21/2024 04:03 PM EDT
--- NOTE | ~2024-07-21 | XR_ITS ---
EXAMINATION: XR SHOULDER, LEFT CLINICAL INFORMATION: Pain in left shoulder following COMPARISON: None available. TECHNIQUE: AP external rotation, Grashey, scapular Y, and axillary views of the left shoulder. FINDINGS: The bones and soft tissues are normal. No fracture. Glenohumeral and acromioclavicular alignment is anatomic with normal joint space. No abnormal soft tissue calcifications. XR/XR shoulder LT min 2V IMPRESSION: Normal left shoulder. Electronically signed by: Chun Graham MD 07/21/2024 04:05 PM EDT RP
--- NOTE | ~2024-07-21 | CT_ITS ---
EXAMINATION: CT OF THE HEAD WITHOUT CONTRAST CT OF THE CERVICAL SPINE WITHOUT CONTRAST CLINICAL INFORMATION: Syncope and fall.. COMPARISON: CT scan of the head and cervical spine dated 04/06/2023.. TECHNIQUE: Contiguous axial imaging was performed from the skull base to vertex without intravenous administration of contrast. Coronal reformations of the head were obtained. Contiguous axial imaging was then performed from the skull base down to the thoracic inlet. Coronal and sagittal reformations of the cervical spine were obtained. This CT examination was performed using dose optimization techniques as appropriate, variously including the following: *Automated exposure control *Adjustment of mA and/or kV according to patient size (this includes techniques or standardized protocols for targeted exams where dose is matched to indication/reason for exam; i.e. extremities or head) *Use of iterative reconstruction technique DLP: 347 mGy-cm. FINDINGS: CT scan of the head: There is no evidence of acute intracranial hemorrhage or territorial infarction. No abnormal mass-effect or midline shift is seen. [place] to white matter differentiation is well preserved. No extra-axial fluid collections are identified. The ventricles and sulci are enlarged, similar to the previous exam.. There is mild periventricular and deep white matter low-attenuation seen, consistent with ischemic small vessel disease. Calcification of the vertebral and basilar arteries and the carotid siphons bilaterally noted.. There is nasal septal deviation toward the left side with a small spur projecting into the left nasal cavity. The osseous structures and soft tissues are normal. Mucosal thickening in the maxillary sinuses and the anterior and middle ethmoid air cells noted. The mastoid air cells and remainder of the visualized portions of the paranasal sinuses are well-aerated. CT scan of the cervical spine: Straightening of the normal cervical lordosis is seen, likely due to positioning within the gantry. There is no evidence of acute fracture or dislocation. Small vertically oriented lucency in the left C2 lateral mass (series 15, image 14) is unchanged from 04/03/2023 and most consistent with a small nutrient channel. Craniocervical junction and atlantoaxial articulations are intact with mild degenerative spurring seen at the anterior atlantoaxial articulation increments over junction. Prevertebral soft tissues are normal in thickness. Disc space height is relatively well maintained. Multilevel mild vertebral spondylosis is seen. Chronic ununited fracture of the posterior inferior left C3 facet joint versus prominent hypertrophic changes again seen (series 16, image 16). Calcification of the carotid arteries noted bilaterally. The included soft tissues of the neck and lung apices are otherwise unremarkable. CT/CT cervical spine wo IV con IMPRESSION: CT SCAN OF THE HEAD: 1. No acute intracranial pathology. 2. Findings of ischemic small vessel disease. 3. Mild sinus disease. CT SCAN OF THE CERVICAL SPINE: 1. No evidence of acute cervical spine fracture or malalignment. 2. Chronic ununited fracture of the posterior inferior left C3 facet joint versus prominent hypertrophic changes. 3. Mild degenerative changes in the cervical spine as discussed above. Electronically signed by: Francisca Pena MD 07/21/2024 02:15 PM EDT
--- NOTE | ~2024-07-21 | XR_ITS ---
EXAMINATION: XR CHEST CLINICAL INFORMATION: Syncope. COMPARISON: None available. TECHNIQUE: Portable AP view of the chest was obtained. FINDINGS: The study is limited by suboptimal inspiration. Curvilinear right basilar density suggests atelectasis and/or fibrotic streak. No gross focal infiltrate, effusion, or pneumothorax is appreciated as such. Mild elevation of the right hemidiaphragm, unchanged. The cardiac silhouette appears normal in size. Question mildly uncoiled aorta, raising the possibility of hypertension. The bones and soft tissues appear unremarkable. XR/XR chest 1V IMPRESSION: Findings as above. Electronically signed by: Bill Dotson MD 07/21/2024 04:02 PM EDT RP
[2024-07-21 11:55] VITALS: BP 92/60; PULSE 76; O2SAT 94
--- NOTE | 2024-07-21 12:10 | ECG_ITS ---
Test Reason : SYNCOPY Blood Pressure : / mmHG Vent. Rate : 075 BPM Atrial Rate : 075 BPM P-R Int : 202 ms QRS Dur : 062 ms QT Int : 392 ms P-R-T Axes : 054 041 017 degrees QTc Int : 437 ms Normal sinus rhythm with sinus arrhythmia Mild [place] prolongation Low voltage QRS Borderline ECG When compared with ECG of 16-MAY-2024 11:38, Borderline criteria for Inferior infarct are no longer Present Referred By: Anders Quintero Electronically Signed By:TRACEY SHARP
--- NOTE | 2024-07-21 12:14 | ED.GENADULT ---
HPI - General Adult General Chief complaint: Fall Stated complaint: FALL FROM BED DIZZY HEADACHE Time Seen by Provider: 07/21/24 11:58 Source: patient, family ( layboy tender), EMS and household manager Mode of arrival: EMS Limitations: no limitations History of Present Illness ED Provider: DR. Quintero HPI narrative: 74-year-old male PMH of CAD, HTN, DM, diabetic polyneuropathy, HFrEF lives in his apartment mostly by himself with CLINICAL SPECIALIST VASCULAR, stated that after he had breakfast felt dizzy and lightheadedness, patient Stated that he tripped on a chair then fell in his bedroom, called his CLINICAL SPECIALIST VASCULAR found the patient on the ground with superficial abrasion on the left arm, patient declined CP or SOB, no headache, no weakness, no numbness. confirms history that he passed out and do not remember details of the fall. No history of alcohol use, no drug abuse. Complain of left shoulder/ left arm pain. Related Data Home Medications ?Medication ?Instructions ?Recorded ?Confirmed acetaminophen 500 mg tablet 500 mg PO Q6H PRN Pain 08/12/20 05/15/24 (Tylenol Extra Strength) aspirin 81 mg tablet,delayed 81 mg PO BEDTIME 08/12/20 05/15/24 release (Adult Low Dose Aspirin) ferrous sulfate 325 mg (65 mg 325 mg PO BID 08/12/20 05/15/24 iron) tablet trazodone 100 mg tablet 200 mg PO BEDTIME 08/12/20 05/15/24 amlodipine 5 mg tablet 5 mg PO DAILY 11/19/20 05/15/24 gabapentin 600 mg tablet 600 mg PO BEDTIME 11/19/20 05/15/24 pravastatin 40 mg tablet 40 mg PO BEDTIME 11/19/20 05/15/24 blood sugar diagnostic #10 ea 03/09/21 05/15/24 pen needle, diabetic 31 gauge x #50 ea 03/09/21 05/15/2412/22 pen needle, diabetic 31 gauge x #1,200 ea 12/17/21 05/15/2402/21 (UltiCare Pen Needle) pramipexole 1 mg tablet 1 mg PO BEDTIME 05/18/23 05/15/24 calcitriol 0.25 mcg capsule 0.25 mcg PO MOWEFR@0900 04/06/24 05/15/24 clonazepam 0.5 mg tablet 0.5 mg PO BEDTIME 04/06/24 05/15/24 clotrimazole 1 % topical cream 1 appl topical BID 04/06/24 05/15/24 empagliflozin 25 mg tablet 25 mg PO DAILY 04/06/24 05/15/24 (Jardiance) insulin glargine 100 unit/mL (3 8 unit subcut DAILY 04/06/24 05/15/24 mL) subcutaneous pen (Lantus Solostar U-100 Insulin) Previous Rx's ?Medication ?Instructions ?Recorded arm brace (Wrist Brace Large) #2 ea 08/12/20 cilostazol 100 mg tablet 100 mg PO BID 90 days #180 tabs 09/26/23 testosterone (AndroGel) 3 pump transdermal DAILY 28 days 02/22/24 #150 grams tramadol 50 mg tablet 50 mg PO TID PRN pain #90 tabs 04/01/24 furosemide 40 mg tablet (Lasix) 40 mg PO DAILY #90 tabs 05/15/24 metoprolol succinate 50 mg 50 mg PO BID 90 days #180 tabs 05/17/24 tablet,extended release 24 hr Allergies Allergy/AdvReac Type Severity Reaction Status Date / Time No Known Allergies Allergy Verified 07/21/24 13:06 [No Known Allergies*] Review of Systems Review of Systems: All other systems are reviewed and are negative Constitutional: Reports as per HPI and Reports no additional constitutional complaints Eyes: Reports as per HPI and Reports no additional eye complaints Reports system reviewed and no additional complaints, except as documented Cardiovascular: Reports as per HPI and Reports no additional cardiovascular complaints Respiratory: Reports as per HPI and Reports no additional respiratory complaints Gastrointestinal: Reports as per HPI and Reports no additional gastrointestinal complaints Genitourinary: Reports no additional female genitourinary complaints Musculoskeletal: Reports no additional musculoskeletal complaints Skin/Breast: Reports system reviewed and no additional complaints, except as docu Psychiatric: Reports no additional psychiatric complaints Endocrine: Reports no additional endocrine complaints Hematologic/Lymphatic: Reports no additional hematologic/lymphatic complaints Allergic/Immunologic: Reports no additional allergic/immunologic complaints Reports system reviewed and no additional complaints, except as documented and Reports Abnormal speech present PMFSH Past Medical History Medical History Encounter for assessment of decision-making capacity Pneumonia Encounter for medication monitoring Depression Restless leg syndrome Peripheral neuropathy Personal history of nicotine dependence History of non-ST elevation myocardial infarction (NSTEMI) (~09/2018) History of cardiac arrest (~09/2018) Other and unspecified hyperlipidemia Essential hypertension 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 Mother No problems noted. 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 Blood pressure elevated. Heart rate normal. Respiratory rate normal. Temperature normal. Oxygen saturation normal. Appearance: Alert. Oriented X3. No acute distress. Head: Normal external exam. Normocephalic. Atraumatic. No Harman signs noted. No raccoon eyes noted Eyes: PERRLA. EOMI. Conjunctiva and sclera normal. Eyelids normal. ENT: TM's Normal. Pharynx normal. Uvula midline. Moist mucous membranes. No trismus noted. No drooling noted. No muffled voice noted. Neck: Normal inspection. Mild diffuse neck pain, C-collar is in place. CVS: Normal heart rate and rhythm. Heart sound normal. No murmurs noted. Pulses normal throughout. Respiratory: No respiratory distress. Painless inspiration. Breath sounds normal. No wheezes/rales/rhonchi noted. Chest nontender. No accessory muscle usage noted or decreased air movement noted. Abdomen: Soft and nontender. Bowel sounds normal in all 4 quadrants. No distention noted. No organomegaly noted. No visible injury noted. Back: No CVA tenderness. Full range of motion noted. Skin: Skin warm and dry. Normal skin color. Normal skin turgor. No rashes/lesions/lacerations noted. Extremities: Left shoulder and left arm tenderness, no deformity, no step-off, neurovascular exam to the left upper extremities intact. Neuro: Oriented X 3. Cranial nerve exam: II-XII are grossly intact No motor deficit. No sensory deficit. Reflexes normal. Course Reevaluation(s) Reevaluation #1: A fall after syncopal episode, CT head cervical spine is unremarkable, no shoulder fracture, no left arm fracture, unremarkable labs will admit the patient for syncope and cardiac monitoring. Time: 14:00 Reevaluation #2: patient now say that he tripped on a chair in his room did not black out or feel dizzy before he fell no chest pain. Therefore patient had a mechanical fall will discharge. Time: 16:21 Medical Decision Making Differential Diagnosis Differential Diagnoses: The differential diagnosis associated with the presentation includes ( syncope, intracranial bleed, cervical spine injury, left shoulder fracture, left arm fracture, pneumonia, pneumothorax, dysrhythmia, electrolyte derangement, orthostatic hypotension, severe anemia.) Admission/Observation Consideration of admission/observation: Escalation of care including admission/observation considered Consult Healthcare Provider Management of the patient was discussed with: Hospitalist (Dr. Maxwell) Lab Data MDM Lab Attestation statement: I reviewed the patient's lab results. 07/21/24 12:59 07/21/24 12:59 Labs: Lab Results 07/21/24 07/21/24 Range/Units 12:59 13:11 WBC 10.7 (4.8-10.8) X10*3/uL RBC 4.33 L (4.60-5.80) X10*6/uL Hgb 14.5 (14.0-18.0) g/dl Hct 41.5 L (42.0-52.0) % MCV 95.8 (80.0-98.0) fL MCH 33.5 H (27.0-33.0) pg MCHC 34.9 (31.0-36.0) g/dl RDW 14.1 (11.0-16.0) % Plt Count 187 (160-400) X10*3/uL MPV 9.4 (9.4-12.4) fL Immature Gran % (Auto) 0.6 H (0.0-0.4) % Neut % (Auto) 69.8 (45-73) % Lymph % (Auto) 19.7 L (20-40) % [place] % (Auto) 8.5 (2-11) % Eos % (Auto) 1.2 (0-4) % Baso % (Auto) 0.2 (0-2) % Lymph # (Auto) 2.1 (1.2-4.9) X10*3/uL [place] # (Auto) 0.9 (0.1-1.2) X10*3/uL Eos # (Auto) 0.1 (0.0-0.4) X10*3/uL Baso # (Auto) 0.0 (0.0-0.2) X10*3/uL Abs Immat Gran (auto) 0.06 H (0.00-0.03) X10*3/uL Absolute Neuts (auto) 7.5 (2.0-8.3) x10*3/uL Absolute Nucleated RBC 0.000 (0.0-0.012) X10*3/uL Nucleated RBC % (auto) 0.0 (0.0-0.2) /100WBC PT 13.4 H (10.9-12.4) SEC INR 1.2 H (0.9-1.1) Sodium 141 (135-145) mmol/L Potassium 4.2 (3.3-5.1) mmol/L Chloride 96 (96-108) mmol/L Carbon Dioxide 33 H (22-29) mmol/L Anion Gap 16 (12-20) BUN 14 (9-16) mg/dL Creatinine 1.23 (0.5-1.4) mg/dL Estim Creat Clear Calc 52.6 Estimated GFR 58 Random Glucose 162 H (60-115) mg/dL Calcium 9.2 (8.4-10.2) mg/dL Total Bilirubin 1.1 H (0.0-1.0) mg/dL Direct Bilirubin 0.3 (0.0-0.5) mg/dL AST 22 (5-37) U/L ALT 21 (0-40) U/L Alkaline Phosphatase 134 H (39-117) U/L Total Creatine Kinase 42 (38-174) U/L Troponin I High Sens 16.4 D (<3.5-35.0) ng/L B-Natriuretic Peptide 60 (<100) pg/mL Total Protein 6.8 (6.5-8.0) g/dL Albumin 3.6 (3.5-5.0) g/dL Lipase 33 (8-78) U/L Urine Color Yellow Urine Appearance Clear Urine pH 7.5 (5.0-9.0) Ur Specific [place] <= 1.005 (1.005-1.025) Urine Protein Negative (Neg-Trace) mg/dL Urine Glucose (UA) 100 H (Negative) mg/dL Urine Ketones Negative (Negative) mg/dL Urine Blood Negative (Negative) Urine Nitrite Negative (Negative) Ur Leukocyte Esterase Negative (Negative) Influenza Type A (PCR) NEGATIVE (Negative) Influenza Type B (PCR) NEGATIVE (Negative) RSV RNA Qual (PCR) NEGATIVE (Negative) SARS-CoV-2 RNA (RT-PCR) POSITIVE A (Negative) Independent Interpretation I performed an independent interpretation of an: Plain X-Ray ( Chest /Left arm/ left shoulder: No acute fracture, no acute pathology.) and CT Scan ( Head/cervical spine: No acute pathology.) Radiology Impression Discussion of test interpretation with radiology: I have reviewed the radiologist's reading. Discharge Plan Discharge Clinical Impression: Contusion of arm, left, COVID-19 virus infection, Accident due to mechanical fall without injury Patient Disposition: Home, Self-Care Instructions: Fall Prevention for Older Adults (ED) Prescriptions: No Action cilostazol 100 mg tablet 100 mg PO BID 90 Days Qty: 180 3RF testosterone [AndroGel] 20.25 mg/1.25 gram (1.62 %) gel in metered-dose pump 3 pump transdermal DAILY 28 Days Qty: 150 5RF Rx Instructions: apply 3 pump daily alternating arms. Rub in until dry - aplique 3 bombas diarias alternando brazos. Frote hasta que se seque. tramadol 50 mg tablet 50 mg PO TID PRN (Reason: pain) Qty: 90 2RF metoprolol succinate 50 mg tablet extended release 24 hr 50 mg PO BID 90 Days Qty: 180 3RF Protocol: Hold for SBP/HR < HOLD for SBP < : 90 HOLD for HR < : 60 clonazepam 0.5 mg tablet 0.5 mg PO BEDTIME clotrimazole 1 % cream 1 appl topical BID calcitriol 0.25 mcg capsule 0.25 mcg PO MOWEFR@0900 insulin glargine [Lantus Solostar U-100 Insulin] 100 unit/mL (3 mL) insulin pen 8 unit subcut DAILY Jardiance 25 mg tablet 25 mg PO DAILY amlodipine 5 mg tablet 5 mg PO DAILY pravastatin 40 mg tablet 40 mg PO BEDTIME gabapentin 600 mg tablet 600 mg PO BEDTIME aspirin [Adult Low Dose Aspirin] 81 mg tablet,delayed release (DR/EC) 81 mg PO BEDTIME acetaminophen [Tylenol Extra Strength] 500 mg tablet 500 mg PO Q6H PRN (Reason: Pain) ferrous sulfate 325 mg (65 mg iron) tablet 325 mg PO BID trazodone 100 mg tablet 200 mg PO BEDTIME (DME) Wrist Brace Large Misc See Rx Instructions .ROUTE .MEDSUPPLY Qty: 2 0RF Rx Instructions: As directed (DME) blood sugar diagnostic Strip See Rx Instructions Not Applicable BID Qty: 10 Rx Instructions: As directed (DME) pen needle, diabetic 31 gauge x 3/16 needle See Rx Instructions .ROUTE BID Qty: 50 Rx Instructions: As directed (DME) pen needle, diabetic [UltiCare Pen Needle] 31 gauge x 5/16 needle See Rx Instructions subcut .MEDSUPPLY Qty: 1200 Rx Instructions: As directed pramipexole 1 mg tablet 1 mg PO BEDTIME furosemide [Lasix] 40 mg tablet 40 mg PO DAILY Qty: 90 0RF Referrals: Kristi Warren, [employer]OMOT[employer] DES[employer] [Primary Care Provider] - Print Language: [place]
[2024-07-21 13:04] VITALS: BP 114/67; PULSE 81; RESP 18; TEMP 36.4; O2SAT 94; BMI 23.9
[2024-07-21 13:05] LABS: MANUAL DIFF FLAG NO
[2024-07-21 13:06] LABS: Basophils Percent Auto 0.2 % (0-2); Eosinophils Absolute Auto 0.1 X10*3/uL (0.0-0.4); Eosinophils Percent Auto 1.2 % (0-4); Hematocrit 41.5 % (42.0-52.0); Hemoglobin 14.5 g/dl (14.0-18.0); Imm Gran Abs Auto 0.06 X10*3/uL (0.00-0.03); Imm Gran Pct Auto 0.6 % (0.0-0.4); Lymphocytes Absolute Auto 2.1 X10*3/uL (1.2-4.9); Lymphocytes Percent Auto 19.7 % (20-40); Mean Corpuscular HGB Conc 34.9 g/dl (31.0-36.0); Mean Corpuscular Hemoglobin 33.5 pg (27.0-33.0); Mean Corpuscular Volume 95.8 fL (80.0-98.0); Mean Platelet Volume 9.4 fL (9.4-12.4); Monocytes Absolute Auto 0.9 X10*3/uL (0.1-1.2); Monocytes Percent Auto 8.5 % (2-11); Neutrophils Absolute Auto 7.5 x10*3/uL (2.0-8.3); Neutrophils Percent Auto 69.8 % (45-73); Platelet Count 187 X10*3/uL (160-400); Red Blood Count 4.33 X10*6/uL (4.60-5.80); Red Cell Distribution Width 14.1 % (11.0-16.0); White Blood Count 10.7 X10*3/uL (4.8-10.8)
[2024-07-21 13:12] LABS: INTERNATIONAL NORM RATIO 1.2 (0.9-1.1); Prothrombin Time 13.4 SEC (10.9-12.4)
[2024-07-21 13:21] LABS: Appearance Urine Clear; Color Urine Yellow; Glucose Urine UA 100 mg/dL (Negative); Leukocyte Esterase Urine Negative (Negative); Nitrite Urine Negative (Negative); PH 7.5 (5.0-9.0); Specific Gravity - Urine <= 1.005 (1.005-1.025); Urine Blood Negative (Negative); Urine Ketones Negative (Negative); Urine Protein Negative (Neg-Trace)
[2024-07-21 13:38] LABS: B Type Natriuretic Peptide 60 pg/mL (<100)
[2024-07-21 13:41] LABS: Alanine Aminotransferase 21 U/L (0-40); Albumin Level 3.6 g/dL (3.5-5.0); Alkaline Phosphatase 134 U/L (39-117); Anion Gap 16 (12-20); Aspartate Amino Transferase 22 U/L (5-37); Bilirubin Direct 0.3 mg/dL (0.0-0.5); Bilirubin Total 1.1 mg/dL (0.0-1.0); Blood Urea Nitrogen 14 mg/dL (9-16); Calcium 9.2 mg/dL (8.4-10.2); Carbon Dioxide 33 mmol/L (22-29); Chloride 96 mmol/L (96-108); Creatinine Clr Calc Pharmacy 52.6; Estimated Glomerular Filt Rate 58; Glucose Random 162 mg/dL (60-115); Lipase 33 U/L (8-78); Potassium 4.2 mmol/L (3.3-5.1); Sodium 141 mmol/L (135-145); Total Protein 6.8 g/dL (6.5-8.0)
[2024-07-21 13:47] LABS: Troponin-I High Sensitivity 16.4 ng/L (<3.5-35.0)
[2024-07-21 13:58] LABS: Influenza A PCR NEGATIVE (Negative); Influenza B PCR NEGATIVE (Negative); Resp Syncy Virus RNA Qual PCR NEGATIVE (Negative); SARS COV2 PCR INHOUSE POSITIVE (Negative)
--- NOTE | 2024-07-21 14:11 | PC.NURSE ---
patient found to be sitting up on side of bed with c collar place to urinate. patient educated on c collar and not sitting up. patient threw urinal at dyehouse worker when trying to assist
--- NOTE | 2024-07-21 15:29 | PC.NURSE ---
Assisted pt. in using urinal. Pt. voided and was given a warm blanket. Expresses gratitude. Call light within reach.
--- NOTE | 2024-07-21 16:33 | PC.NURSE ---
Called pt.'s HCP, Ania, to coordinate a ride home. Ania states that she is on her way to bean picker the pt. right now.
[2024-07-21 16:56] VITALS: BP 109/65; PULSE 62; RESP 20; TEMP 36.3; O2SAT 97
[2024-07-21 17:06] VITALS: BP 109/65; PULSE 62; RESP 20; TEMP 36.3; O2SAT 97
== END 2024-07-21 17:07 | disposition home or self-care (01) ==
PROVIDERS: Emergency Provider Emergency Medicine; PCP Nurse Practitioner Primary Care
DX: S40.022A Contusion of left upper arm, initial encounter (principal); U07.1 COVID-19; I49.8 Other specified cardiac arrhythmias; R06.02 Shortness of breath; M54.2 Cervicalgia; M79.602 Pain in left arm; R51.9 Headache, unspecified; I25.10 Atherosclerotic heart disease of native coronary artery without angina pectoris; E11.9 Type 2 diabetes mellitus without complications; I10 Essential (primary) hypertension; F17.210 Nicotine dependence, cigarettes, uncomplicated; W06.XXXA Fall from bed, initial encounter; Y93.89 Activity, other specified; Y92.092 Bedroom in other non-institutional residence as the place of occurrence of the external cause; Y99.8 Other external cause status; Z79.899 Other long term (current) drug therapy; Z79.4 Long term (current) use of insulin
CPT/HCPCS: 0241U; 36415; 70450; 71045; 72125; 73030; 73060; 80048; 80076; 81003; 82550; 83690; 83880; 84484; 85025; 85610; 93005; 99284

== ENCOUNTER → 2024-07-21 12:10 | Outpatient (BNV) | payer OTHER, SELFPAY | PROVIDERS: Emergency Provider Emergency Medicine; PCP Nurse Practitioner Primary Care; Visit Provider Internal Medicine | DX: R55 Syncope and collapse (principal) | CPT/HCPCS: 93010 ==

== ENCOUNTER 2024-08-06 11:24 | Outpatient (REF) | payer OTHER, SELFPAY ==
--- NOTE | ~2024-08-06 | XR_ITS ---
EXAMINATION: XR CHEST CLINICAL INFORMATION: Follow-up x-ray for aspiration pneumonia in June or states pneumonia both lungs, follow-up x-ray. COMPARISON: 07/21/2024. TECHNIQUE: 2 views of the chest were obtained. FINDINGS: There is no gross pneumothorax. Lung volumes are low. Heart size is normal. Streaky opacities at the right lung base with volume loss, worsening. Minimal degenerative changes of the thoracic spine. XR/XR chest 2V IMPRESSION: Streaky opacities at the right lung base with volume loss worsening. This study was presented today August 06, 2024 for interpretation. Stat results provided at this time as requested by referring provider. Electronically signed by: Mirela Jones MD 08/06/2024 12:22 PM EDT
== END 2024-08-06 11:25 | disposition home or self-care (01) ==
LOC: HO.HHCX 11:24
PROVIDERS: Visit Provider Family Medicine
DX: J18.9 Pneumonia, unspecified organism (principal)
CPT/HCPCS: 71046

== ENCOUNTER 2024-08-08 08:07 | Emergency (ER) | payer OTHER, SELFPAY ==
[2024-08-08] VITALS (7 sets, daily range): BP systolic 93–126; BP diastolic 40–61; PULSE 54–64; RESP 15–18; TEMP 36.3–36.9; O2SAT 89–97; BMI 25.3
--- NOTE | ~2024-08-08 | CT_ITS ---
EXAMINATION: CT HEAD WITHOUT CONTRAST CLINICAL INFORMATION: r/o bleed COMPARISON: CT dated July 21, 2024 TECHNIQUE: Contiguous axial imaging was performed from the skull base to vertex without intravenous administration of contrast. This CT examination was performed using dose optimization techniques as appropriate, variously including the following: *Automated exposure control *Adjustment of mA and/or kV according to patient size (this includes techniques or standardized protocols for targeted exams where dose is matched to indication/reason for exam; i.e. extremities or head) *Use of iterative reconstruction technique DLP: 776 mGy-cm FINDINGS: No acute intracranial hemorrhage. No mass effect, midline shift, hydrocephalus or herniation. Posterior cranial fossa contents demonstrated no acute intracranial hemorrhage. Prominence of the extra-axial CSF spaces, cerebral sulci and ventricles. Patchy hypodensities within the deep periventricular white matter both hemispheres. Old lacunar infarct, right cerebellum. Bony calvarium is intact. Skull base is intact. Tympanic cavities and mastoid air cells are aerated. Calcified plaques in the cavernous supraclinoid segments both ICAs and V4 segments of the vertebral arteries. Mucosal thickening without air-fluid levels in the included paranasal sinuses. CT/CT head/brain wo IV con IMPRESSION: No acute intracranial hemorrhage. Small vessel occlusive disease. Global cerebral atrophy. Electronically signed by: Freddie Frankel MD 08/08/2024 09:30 AM EDT
--- NOTE | ~2024-08-08 | XR_ITS ---
EXAMINATION: XR CHEST CLINICAL INFORMATION: Chest pain COMPARISON: Chest radiograph 04/03/2023 TECHNIQUE: Frontal view of the chest was obtained. FINDINGS: The lungs are hypoexpanded. Platelike atelectasis in the right lung base. Additional patchy bibasilar opacities. No pleural effusions or pneumothorax. The cardiomediastinal silhouette is within normal limits. No acute osseous abnormality. Aortic calcifications. XR/XR chest 1V IMPRESSION: Again noted platelike atelectasis in the right lung base. Additional patchy bibasilar opacities may be related to atelectasis, although infectious or inflammatory process is not excluded. Electronically signed by: Chano Aleman MD 08/08/2024 09:42 AM EDT
--- NOTE | 2024-08-08 08:21 | ED_ITS ---
HPI - General Adult General Chief complaint: General Medical Stated complaint: IRBY,BODYACHES PER EMS Time Seen by Provider: 08/08/24 08:09 History of Present Illness HPI narrative: 74 year old male with history of CAD, HTN, DM, diabetic polyneuropathy, and HFrEF [sic] presented with coughing congestion upper respiratory symptoms generalized malaise headache total body ache. Patient is from home. Previous COVID infection in the past. Related Data Home Medications ?Medication ?Instructions ?Recorded ?Confirmed acetaminophen 500 mg tablet 500 mg PO Q6H PRN Pain 08/12/20 05/15/24 (Tylenol Extra Strength) aspirin 81 mg tablet,delayed 81 mg PO BEDTIME 08/12/20 05/15/24 release (Adult Low Dose Aspirin) ferrous sulfate 325 mg (65 mg 325 mg PO BID 08/12/20 05/15/24 iron) tablet trazodone 100 mg tablet 200 mg PO BEDTIME 08/12/20 05/15/24 amlodipine 5 mg tablet 5 mg PO DAILY 11/19/20 05/15/24 gabapentin 600 mg tablet 600 mg PO BEDTIME 11/19/20 05/15/24 pravastatin 40 mg tablet 40 mg PO BEDTIME 11/19/20 05/15/24 blood sugar diagnostic #10 ea 03/09/21 05/15/24 pen needle, diabetic 31 gauge x #50 ea 03/09/21 05/15/2412/22 pen needle, diabetic 31 gauge x #1,200 ea 12/17/21 05/15/2402/21 (UltiCare Pen Needle) pramipexole 1 mg tablet 1 mg PO BEDTIME 05/18/23 05/15/24 calcitriol 0.25 mcg capsule 0.25 mcg PO MOWEFR@0900 04/06/24 05/15/24 clonazepam 0.5 mg tablet 0.5 mg PO BEDTIME 04/06/24 05/15/24 clotrimazole 1 % topical cream 1 appl topical BID 04/06/24 05/15/24 empagliflozin 25 mg tablet 25 mg PO DAILY 04/06/24 05/15/24 (Jardiance) insulin glargine 100 unit/mL (3 8 unit subcut DAILY 04/06/24 05/15/24 mL) subcutaneous pen (Lantus Solostar U-100 Insulin) Previous Rx's ?Medication ?Instructions ?Recorded arm brace (Wrist Brace Large) #2 ea 08/12/20 cilostazol 100 mg tablet 100 mg PO BID 90 days #180 tabs 09/26/23 testosterone (AndroGel) 3 pump transdermal DAILY 28 days 02/22/24 #150 grams tramadol 50 mg tablet 50 mg PO TID PRN pain #90 tabs 04/01/24 furosemide 40 mg tablet (Lasix) 40 mg PO DAILY #90 tabs 05/15/24 metoprolol succinate 50 mg 50 mg PO BID 90 days #180 tabs 05/17/24 tablet,extended release 24 hr Allergies Allergy/AdvReac Type Severity Reaction Status Date / Time No Known Allergies Allergy Verified 08/08/24 08:17 [No Known Allergies*] Review of Systems 2 Review of Systems: Positive generalized malaise fever body ache. Positive coughing upper respiratory symptoms PMFSH Past Medical History Attestation statement: The following information was validated with the patient. Medical History Encounter for assessment of decision-making capacity Pneumonia Encounter for medication monitoring Depression Restless leg syndrome Peripheral neuropathy Personal history of nicotine dependence History of non-ST elevation myocardial infarction (NSTEMI) (~09/2018) History of cardiac arrest (~09/2018) Other and unspecified hyperlipidemia Essential hypertension 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 Mother No problems noted. 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 Oriented X3. No acute distress. Eyes: Pupils equal, round and reactive to light. ENT: Pharynx normal. Neck: Normal inspection. Neck supple. No lymph nodes noted. No crepitus CVS: Normal heart rate and rhythm. Pulses normal. Normal S1 and S2 Respiratory: No respiratory distress. Breath sounds normal. No Wheezing. No rales Abdomen: Soft and nontender. No rigidity. No distention. good BS x4 Skin: Skin warm and dry. Normal skin color. Normal skin turgor. Extremities: No lower extremity edema. Neurovascular intact to all extremities. No Lacerations. No Rash Neuro: Oriented X 3. No motor deficit. No sensory deficit. Moving all extermities. No slurred speech Medications Administered Discontinued Medications Generic Name Dose Route Start Last Admin Trade Name Aleksandarq PRN Reason Stop Dose Admin Sodium Chloride 500 mls @ 999 mls/hr 08/08/24 08:30 08/08/24 09:48 Ns IV 08/08/24 09:00 Infused .Q31M FARSHAD Infusion Medical Decision Making Medical Decision Making MDM Narrative: Patient presented today with having headache. Had a history of headaches. Patient is was worried that his tramadol and Seroquel has been taken by his [employer]. I had the case folder involved in the case. efficiency manager spoke with patient's primary. It was actually the primary that felt patient may be too sedated from his Seroquel and tramadol. Asked patient to take Tylenol instead. His medication has been locked up there was no foul play. Patient is is well- appearing neurologically intact. There is no fever no chills no signs of meningitis. Patient's sed rate was 25 there is no signs of temporal arteritis. CT scan of the head was negative for any acute evidence of bleeding. No mass noted. Patient's white count is normal. Electrolyte is normal. Patient is hemoglobin is 11.8. BNP is normal no signs of congestive heart failure patient's urine showed no signs of infection. Flu COVID RSV were all negative. Chest x-ray by my interpretation was grossly negative for acute evidence of pneumonia no pneumothorax. I reviewed radiology's reading of the CT head . Patient is had a case management consult. Care maximize as much as possible. Patient to be discharged home. He seemed to comprehend the reasoning. He understood his prognosis. Differential Diagnosis Differential Diagnoses: The differential diagnosis associated with the presentation includes Intracranial bleed, mass, fracture, viral infection Admission/Observation Consideration of admission/observation: Escalation of care including admission/observation considered Given negative workup, after case management evaluation patient was discharged home Lab Data MDM Lab Attestation statement: I reviewed the patient's lab results. 08/08/24 08:36 08/08/24 08:36 Labs: Lab Results 08/08/24 08/08/24 08/08/24 Range/Units 08:36 08:37 08:39 WBC 7.8 (4.8-10.8) X10*3/uL RBC 3.52 L (4.60-5.80) X10*6/uL Hgb 11.8 L (14.0-18.0) g/dl Hct 34.2 L (42.0-52.0) % MCV 97.2 (80.0-98.0) fL MCH 33.5 H (27.0-33.0) pg MCHC 34.5 (31.0-36.0) g/dl RDW 14.5 (11.0-16.0) % Plt Count 232 (160-400) X10*3/uL MPV 9.0 L (9.4-12.4) fL Immature Gran % (Auto) 0.5 H (0.0-0.4) % Neut % (Auto) 57.1 (45-73) % Lymph % (Auto) 28.5 (20-40) % Iroquois % (Auto) 11.3 H (2-11) % Eos % (Auto) 2.2 (0-4) % Baso % (Auto) 0.4 (0-2) % Lymph # (Auto) 2.2 (1.2-4.9) X10*3/uL [place]ois # (Auto) 0.9 (0.1-1.2) X10*3/uL Eos # (Auto) 0.2 (0.0-0.4) X10*3/uL Baso # (Auto) 0.0 (0.0-0.2) X10*3/uL Abs Immat Gran (auto) 0.04 H (0.00-0.03) X10*3/uL Absolute Neuts (auto) 4.4 (2.0-8.3) x10*3/uL Absolute Nucleated RBC 0.000 (0.0-0.012) X10*3/uL Nucleated RBC % (auto) 0.0 (0.0-0.2) /100WBC ESR 25 H (0-15) MM/HR Sodium 139 (135-145) mmol/L Potassium 3.9 (3.3-5.1) mmol/L Chloride 103 (96-108) mmol/L Carbon Dioxide 29 (22-29) mmol/L Anion Gap 11 L (12-20) BUN 10 (9-16) mg/dL Creatinine 0.93 (0.5-1.4) mg/dL Estim Creat Clear Calc 67.4 Estimated GFR > 60 Random Glucose 101 (60-115) mg/dL Lactic Acid 0.9 (0.5-2.0) mmol/L Calcium 9.5 (8.4-10.2) mg/dL Total Bilirubin 0.9 (0.0-1.0) mg/dL Direct Bilirubin 0.3 (0.0-0.5) mg/dL AST 25 (5-37) U/L ALT 11 (0-40) U/L Alkaline Phosphatase 116 (39-117) U/L Troponin I High Sens 15.0 (<3.5-35.0) ng/L C-Reactive Protein 0.30 (< or = 0.50) mg/dL B-Natriuretic Peptide 49 (<100) pg/mL Total Protein 6.1 L (6.5-8.0) g/dL Albumin 3.1 L (3.5-5.0) g/dL Urine Color Urine Appearance Urine pH (5.0-9.0) Ur Specific Polo (1.005-1.025) Urine Protein (Neg-Trace) mg/dL Urine Glucose (UA) (Negative) mg/dL Urine Ketones (Negative) mg/dL Urine Blood (Negative) Urine Nitrite (Negative) Ur Leukocyte Esterase (Negative) Urine RBC (0-2) /HPF Urine WBC (0-5) /HPF Ur Squamous Epith Cells (0-2) /HPF Urine Bacteria (None Seen) Hyaline Casts (0-2) /LPF Influenza Type A (PCR) NEGATIVE (Negative) Influenza Type B (PCR) NEGATIVE (Negative) RSV RNA Qual (PCR) NEGATIVE (Negative) SARS-CoV-2 RNA (RT-PCR) NEGATIVE (Negative) 08/08/24 Range/Units 12:02 WBC (4.8-10.8) X10*3/uL RBC (4.60-5.80) X10*6/uL Hgb (14.0-18.0) g/dl Hct (42.0-52.0) % MCV (80.0-98.0) fL MCH (27.0-33.0) pg MCHC (31.0-36.0) g/dl RDW (11.0-16.0) % Plt Count (160-400) X10*3/uL MPV (9.4-12.4) fL Immature Gran % (Auto) (0.0-0.4) % Neut % (Auto) (45-73) % Lymph % (Auto) (20-40) % [place]quois % (Auto) (2-11) % Eos % (Auto) (0-4) % Baso % (Auto) (0-2) % Lymph # (Auto) (1.2-4.9) X10*3/uL [place] # (Auto) (0.1-1.2) X10*3/uL Eos # (Auto) (0.0-0.4) X10*3/uL Baso # (Auto) (0.0-0.2) X10*3/uL Abs Immat Gran (auto) (0.00-0.03) X10*3/uL Absolute Neuts (auto) (2.0-8.3) x10*3/uL Absolute Nucleated RBC (0.0-0.012) X10*3/uL Nucleated RBC % (auto) (0.0-0.2) /100WBC ESR (0-15) MM/HR Sodium (135-145) mmol/L Potassium (3.3-5.1) mmol/L Chloride (96-108) mmol/L Carbon Dioxide (22-29) mmol/L Anion Gap (12-20) BUN (9-16) mg/dL Creatinine (0.5-1.4) mg/dL Estim Creat Clear Calc Estimated GFR Random Glucose (60-115) mg/dL Lactic Acid (0.5-2.0) mmol/L Calcium (8.4-10.2) mg/dL Total Bilirubin (0.0-1.0) mg/dL Direct Bilirubin (0.0-0.5) mg/dL AST (5-37) U/L ALT (0-40) U/L Alkaline Phosphatase (39-117) U/L Troponin I High Sens (<3.5-35.0) ng/L C-Reactive Protein (< or = 0.50) mg/dL B-Natriuretic Peptide (<100) pg/mL Total Protein (6.5-8.0) g/dL Albumin (3.5-5.0) g/dL Urine Color Yellow Urine Appearance Clear Urine pH 7.0 (5.0-9.0) Ur Specific Polo 1.020 (1.005-1.025) Urine Protein Negative (Neg-Trace) mg/dL Urine Glucose (UA) >=1000 H (Negative) mg/dL Urine Ketones Negative (Negative) mg/dL Urine Blood Negative (Negative) Urine Nitrite Negative (Negative) Ur Leukocyte Esterase Negative (Negative) Urine RBC 0-2 (0-2) /HPF Urine WBC 0-5 (0-5) /HPF Ur Squamous Epith Cells 0-2 (0-2) /HPF Urine Bacteria None Seen (None Seen) Hyaline Casts 0-2 (0-2) /LPF Influenza Type A (PCR) (Negative) Influenza Type B (PCR) (Negative) RSV RNA Qual (PCR) (Negative) SARS-CoV-2 RNA (RT-PCR) (Negative) Independent Interpretation I performed an independent interpretation of an: Plain X-Ray (Chest x-ray negative) and CT Scan (CT head negative for any acute evidence of bleeding) Radiology Impression Discussion of test interpretation with radiology: I have reviewed the radiologist's reading. External Record Review External record reviewed: Inpatient record Chronic Conditions History of SVT history of NSTEMI history of cardiac arrest history of diabetes Social Determinants Patient?s care significantly limited by Social Determinants of Health including: Problems related to primary support group Discharge Plan Discharge Clinical Impression: Headache, History of viral illness Patient Disposition: Home, Self-Care Instructions: Acute Headache (DC) Prescriptions: No Action cilostazol 100 mg tablet 100 mg PO BID 90 Days Qty: 180 3RF testosterone [AndroGel] 20.25 mg/1.25 gram (1.62 %) gel in metered-dose pump 3 pump transdermal DAILY 28 Days Qty: 150 5RF Rx Instructions: apply 3 pump daily alternating arms. Rub in until dry - aplique 3 bombas diarias alternando brazos. Frote hasta que se seque. tramadol 50 mg tablet 50 mg PO TID PRN (Reason: pain) Qty: 90 2RF metoprolol succinate 50 mg tablet extended release 24 hr 50 mg PO BID 90 Days Qty: 180 3RF Protocol: Hold for SBP/HR < HOLD for SBP < : 90 HOLD for HR < : 60 clonazepam 0.5 mg tablet 0.5 mg PO BEDTIME clotrimazole 1 % cream 1 appl topical BID calcitriol 0.25 mcg capsule 0.25 mcg PO MOWEFR@0900 insulin glargine [Lantus Solostar U-100 Insulin] 100 unit/mL (3 mL) insulin pen 8 unit subcut DAILY Jardiance 25 mg tablet 25 mg PO DAILY amlodipine 5 mg tablet 5 mg PO DAILY pravastatin 40 mg tablet 40 mg PO BEDTIME gabapentin 600 mg tablet 600 mg PO BEDTIME aspirin [Adult Low Dose Aspirin] 81 mg tablet,delayed release (DR/EC) 81 mg PO BEDTIME acetaminophen [Tylenol Extra Strength] 500 mg tablet 500 mg PO Q6H PRN (Reason: Pain) ferrous sulfate 325 mg (65 mg iron) tablet 325 mg PO BID trazodone 100 mg tablet 200 mg PO BEDTIME (DME) Wrist Brace Large Misc See Rx Instructions .ROUTE .MEDSUPPLY Qty: 2 0RF Rx Instructions: As directed (DME) blood sugar diagnostic Strip See Rx Instructions Not Applicable BID Qty: 10 Rx Instructions: As directed (DME) pen needle, diabetic 31 gauge x 3/16 needle See Rx Instructions .ROUTE BID Qty: 50 Rx Instructions: As directed (DME) pen needle, diabetic [UltiCare Pen Needle] 31 gauge x 5/16 needle See Rx Instructions subcut .MEDSUPPLY Qty: 1200 Rx Instructions: As directed pramipexole 1 mg tablet 1 mg PO BEDTIME furosemide [Lasix] 40 mg tablet 40 mg PO DAILY Qty: 90 0RF Referrals: Physician,Unknown J [Primary Care Provider] - 08/12/24 Print Language: French
--- NOTE | 2024-08-08 08:23 | ECG_ITS ---
Test Reason : sob Blood Pressure : / mmHG Vent. Rate : 057 BPM Atrial Rate : 057 BPM P-R Int : 212 ms QRS Dur : 062 ms QT Int : 448 ms P-R-T Axes : 033 006 014 degrees QTc Int : 436 ms Sinus bradycardia with marked sinus arrhythmia with 1st degree A-V block Otherwise normal ECG When compared with ECG of 21-JUL-2024 12:55, No significant change was found Referred By: Leda Boone Electronically Signed By:TRACEY SHARP
[2024-08-08 08:42] LABS: MANUAL DIFF FLAG NO
--- NOTE | 2024-08-08 08:45 | PC.NURSE ---
Pt BIBA from home, reports headache, body aches, cough and intermittent SOB X last few weeks worsening. General malaise and weakness, called EMS via life alert button. Alert and oriented, breathing even and unlabored but noted to have cough. SPO2 on RA 89-92%, placed on 2L O2 NC and improved to >94%. Speech sounds off but pts reports he doesn't have his teeth in and his speech sounds normal to him. Irregular rhythm on bedside media monitor, BPs soft.
[2024-08-08 08:46] LABS: Basophils Percent Auto 0.4 % (0-2); Eosinophils Absolute Auto 0.2 X10*3/uL (0.0-0.4); Eosinophils Percent Auto 2.2 % (0-4); Hematocrit 34.2 % (42.0-52.0); Hemoglobin 11.8 g/dl (14.0-18.0); Imm Gran Abs Auto 0.04 X10*3/uL (0.00-0.03); Imm Gran Pct Auto 0.5 % (0.0-0.4); Lymphocytes Absolute Auto 2.2 X10*3/uL (1.2-4.9); Lymphocytes Percent Auto 28.5 % (20-40); Mean Corpuscular HGB Conc 34.5 g/dl (31.0-36.0); Mean Corpuscular Hemoglobin 33.5 pg (27.0-33.0); Mean Corpuscular Volume 97.2 fL (80.0-98.0); Monocytes Absolute Auto 0.9 X10*3/uL (0.1-1.2); Monocytes Percent Auto 11.3 % (2-11); Neutrophils Absolute Auto 4.4 x10*3/uL (2.0-8.3); Neutrophils Percent Auto 57.1 % (45-73); Platelet Count 232 X10*3/uL (160-400); Red Blood Count 3.52 X10*6/uL (4.60-5.80); Red Cell Distribution Width 14.5 % (11.0-16.0); White Blood Count 7.8 X10*3/uL (4.8-10.8)
[2024-08-08] MEDS: 0.9 % Sodium Chloride 500 ML 999 ML IV (08:54)
[2024-08-08 08:56] LABS: Lactic Acid 0.9 mmol/L (0.5-2.0)
[2024-08-08 09:00] LABS: Alanine Aminotransferase 11 U/L (0-40); Albumin Level 3.1 g/dL (3.5-5.0); Alkaline Phosphatase 116 U/L (39-117); Anion Gap 11 (12-20); Aspartate Amino Transferase 25 U/L (5-37); Bilirubin Direct 0.3 mg/dL (0.0-0.5); Bilirubin Total 0.9 mg/dL (0.0-1.0); Blood Urea Nitrogen 10 mg/dL (9-16); Calcium 9.5 mg/dL (8.4-10.2); Carbon Dioxide 29 mmol/L (22-29); Chloride 103 mmol/L (96-108); Creatinine Clr Calc Pharmacy 67.4; Estimated Glomerular Filt Rate > 60; Glucose Random 101 mg/dL (60-115); Potassium 3.9 mmol/L (3.3-5.1); Sodium 139 mmol/L (135-145); Total Protein 6.1 g/dL (6.5-8.0)
[2024-08-08 09:05] LABS: B Type Natriuretic Peptide 49 pg/mL (<100)
--- NOTE | 2024-08-08 09:05 | PC.NURSE ---
SPECIMEN PROCESSOR called and reports pt has been abusing his home meds of seroquel, trazdone and tramadol. Pts seroquel was d/c by PCP yesterday and per PCP, pt has been asking for pills from other people in his apt building. Provider notified
[2024-08-08 09:26] LABS: Erythrocyte Sedimentation Rate 25 MM/HR (0-15)
[2024-08-08 09:32] LABS: Influenza A PCR NEGATIVE (Negative); Influenza B PCR NEGATIVE (Negative); Resp Syncy Virus RNA Qual PCR NEGATIVE (Negative); SARS COV2 PCR INHOUSE NEGATIVE (Negative)
[2024-08-08 12:09] LABS: Appearance Urine Clear; Color Urine Yellow; Glucose Urine UA >=1000 mg/dL (Negative); Leukocyte Esterase Urine Negative (Negative); Nitrite Urine Negative (Negative); UMIC TRIGGER UACC YES; Urine Blood Negative (Negative); Urine Ketones Negative (Negative); Urine Protein Negative (Neg-Trace)
[2024-08-08 12:12] LABS: Bacteria Urine None Seen (None Seen); Hyaline Casts Urine 0-2 /LPF (0-2); RBC Urine 0-2 /HPF (0-2); Squamous Epithelial Cell Urine 0-2 /HPF (0-2); WBC Urine 0-5 /HPF (0-5)
--- NOTE | 2024-08-08 14:48 | MHC.CM.ED ---
Addendum entered by Karen Rich 08/08/24 15:07: [facility] is able to accept patient. Original Note: Received case management consult from Dr Boone. Patient came to the ER due to body aches. Work up essentially negative. Patient reported to Dr Boone that he thinks his CHERRY PITTER took his medication. MERYL Jorge, called ER this morning and stated patient has been abusing his meds. Patient was at PCP's office on 08/07. Medication non-compliance was reported at that time. Seroquel was d/c'd by PCP. PCP had conversation with patient about using Tylenol for pain before uses Ultram. Met with patient and board mill supervisor. Patient states he has taken 2 medication to sleep and he doesn't have those medications now. T/W reminded patient that he was seen by PCP and explained PCP's thoughts on meds. Patient stated he had the medication on the top of his fridge and now they're not there. Patient able to verbalize that CHERRY PITTER might have moved them to a safe place. Patient is active with [facility]. Received telephone call from patient's outpatient child care coordinator, Amy Hinton. She can be reached via telephone at [phone] ext. [phone]. Amy states patient was confused prior to going to [facility]. He cleared by the time he was d/c'd from [facility], director social service did not feel capacity eval was appropriate at that time and patient was d/c'd home. Since coming home, patient has been experiencing periods of confusion. Amy requesting capacity eval. All of this information was provided to Dr Boone. Dr Boone does not feel a capacity eval is appropriate at this time. Work up is negatie and patient has answered all questions appropriately. Met with patient again. Explained more STR might be beneficial at this time. Patient declining and wants to return home. He has the keys to get into his apartment. Amy from [facility] made aware. [facility] referral for medication management broadcasted at this time. James booked for 630pm transport. Spoke with patient's CHERRY PITTER, Yanet, via telephone at [phone]. Yanet states she is no longer patient's HCP and that Luana is now patient's HCP. Attempted to speak to Ania via telephone at [phone]. Left message requesting return telephone call. Patient aware and agreeable to d/c plan. Continue to monitor for d/c needs.
--- NOTE | 2024-08-08 19:09 | PC.NURSE ---
report received from Litzy Joshi RN, assume care of pt at this time
--- NOTE | 2024-08-08 19:53 | PC.NURSE ---
spoke with healthcare proxy, and let her know, pt was on the way home.
== END 2024-08-08 19:54 | disposition home or self-care (01) ==
PROVIDERS: Emergency Provider Emergency Medicine Emergency Medical Services; PCP Nurse Practitioner Primary Care
DX: B34.9 Viral infection, unspecified (principal); R51.9 Headache, unspecified; I11.0 Hypertensive heart disease with heart failure; I50.20 Unspecified systolic (congestive) heart failure; E11.9 Type 2 diabetes mellitus without complications; I25.10 Atherosclerotic heart disease of native coronary artery without angina pectoris; R05.9 Cough, unspecified; Z79.899 Other long term (current) drug therapy; Z03.818 Encounter for observation for suspected exposure to other biological agents ruled out
CPT/HCPCS: 0241U; 36415; 70450; 71045; 80048; 80076; 81001; 83605; 83880; 84484; 85025; 85652; 86140; 93005; 96360; 99284; 99285

== ENCOUNTER → 2024-08-08 08:23 | Outpatient (BNV) | payer OTHER, SELFPAY | PROVIDERS: Emergency Provider Emergency Medicine Emergency Medical Services; Visit Provider Radiology Diagnostic Radiology | DX: R51.9 Headache, unspecified (principal) | CPT/HCPCS: 70450 ==

== ENCOUNTER 2024-09-25 10:48 | Outpatient (REF) | payer OTHER, SELFPAY ==
--- OUTSIDE RECORDS SUMMARY | 2024-09-25 10:53 | XMS_ITS | Data Portability ---
Author Organization [facility], [facility] Address [address] [place] [address] Care Team Providers Care Bung Sewer Name Role Phone HIM CCA OTHER Assessment Encounter Date Assessment Date Assessment LastModified by Organization Details LastModified Time 10/24/2023 10/24/2023 Mr. Albert Arriaga is a 73yoM who is seen today for further evaluation of eye pain/injection. Mr Aryan Posada reports that for the past two days he has had itchy, watery eyes. He denies any visual changes or fevers but reports that his eyes hurt 2/2 constant itching. He states that this morning he woke up and his eyes were crusted shut with thick white discharge and he called for an [facility] evaluation. VSS. Forestry Aide on site reports visual sahu are grossly intact. Given bilateral nature and itching more likely viral, but with thick discharge reported will cover for bacterial conjunctivitis. Erythromycin sent to pharmacy. Primary team, Mr. Aryan Posada would benefit from a check in oer the next few days to make sure he's feeling better. [email or web address] Not available 10/24/2023 16:57:26 04/17/2024 04/17/2024 I provided real -time medical direction via phone for this encounter, and was available for additional phone based assistance as needed. I have reviewed and agree with the Assessment and Plan as documented by the Forestry Aide. We discussed the diagnostic uncertainty of home visits and the risk associated with this. The patient given the opportunity to ask questions via signal operator. Discussion was held with the signal operator on the language line at length, given history of bradycardic arrest and frequent falls he is at risk for another fall, severe injury, syncope, possible cardiac arrest and . Medic verbalized/verif ied that the patient understood from the signal operator the risk and he is adamantly refusing to go to the ER. Medic asked him to sign a refusal of transport. I advised that he call his PCP tomorrow and given his hypotension despite 1 L of normal saline IV and bradycardia(kimberly tapan improved with fluid -in the setting of baseline renal function) advised to hold his metoprolol until he speaks to his PCP-this was explained to the patient via the home visits nurse. Red flags reviewed through signal operator advised if develops CP/severe SOB/turning blue/uncontrolle d n/v/d or black/bloody emesis or stool/ AMS/ syncope/severe headache, vision changes, focal weakness recurrent falls /hi fever to call 911- verbalized understanding of instructions to the medic [email or web address] Not available 04/17/2024 20:24:51 Plan of Treatment Reminders Order Date Submit Date Provider Last Modified By Organization Details Last Modified Time Details Appointments None recorded. Lab BMP, serum or plasma 2023 [email or web address] 0 [facility], [address] [place] [address], [phone], 4 15:45:39 Referral None recorded. Procedures None recorded. Surgeries None recorded. Imaging electrocard iogram 2023 [email or web address] 0 [facility], [address] [place] [address], [phone], 4 15:45:41 Medication Orders erythromyci n 5 mg/gram (0.5 %) eye ointment 2023 [facility], [address] [place] [address], [id number], 4 12:12:14 sodium chloride 0.9 % intravenous solution 2023 024 [email or web address] 0 [facility], [address] [place] [address], [id number], 4 15:45:39 Patient TargetsNo targets recorded. Patient InstructionsNo instructions recorded. Reason for Referral None Reported. Results Created Date Observation Date Name Description Value Unit Range Abnormal Flag Note LastModifiedBy Organization Detail LastModifiedTime 07/07/28 2404/17/2024 camilo gu am No observ ation record ed. [email or web address] Main [address], [phone], 04/17/2024 15:45:41 Result Notes None recorded. Procedures Surgical History None recorded. Imaging Results Imaging Date Name Status LastModified by Organization Details LastModified Time 04/17/2024 electrocardiogram completed [email or web address] [address] [place] [address], [phone], 04/17/2024 15:45:41 Procedure Notes None recorded. Medical Equipment None Reported. Allergies No known drug allergies Medications Name Sig Start Date Stop Date Status Note LastModified by Organization Details LastModified Time medbox status USE DIRECTED active Not Available Not Available No t Available losartan 50 mg tablet TAKE 2 TABLETS BY MOUTH ONCE DAILY IN THE MORNING active Not Available Not Available No t Available cyclobenzapr ine 10 mg tablet TAKE 1 TABLET BY MOUTH THREE TIMES DAILY NEEDED FOR PAIN active Not Available Not Available No t Available pramipexole 1 mg tablet TAKE 1 TABLET BY MOUTH AT BEDTIME active Not Available Not Available No t Available furosemide 40 mg tablet TAKE 1 TABLET BY MOUTH EVERY DAY WITH DOSE IN MEDBOX active Not Available Not Available No t Available cilostazol 100 mg tablet TAKE 1 TABLET BY MOUTH TWICE DAILY active Not Available Not Available No t Available gabapentin 600 mg tablet TAKE 1 TABLET BY MOUTH AT BEDTIME active Not Available Not Available No t Available naproxen 375 mg tablet TAKE 1 TABLET BY MOUTH TWICE DAILY active Not Available Not Available No t Available pravastatin 40 mg tablet TAKE 1 TABLET BY MOUTH AT BEDTIME active Not Available Not Available No t Available senna 8.6 mg tablet TAKE 1 TABLET BY MOUTH AT BEDTIME FOR CONSTIPATI ON active Not Available Not Available No t Available clonazepam 0.5 mg tablet TAKE 1 TABLET BY MOUTH AT BEDTIME active Not Available Not Available No t Available amlodipine 5 mg tablet TAKE 1 TABLET BY MOUTH EVERY MORNING active Not Available Not Available No t Available aspirin 81 mg tablet,delay ed release TAKE 1 TABLET BY MOUTH AT BEDTIME active Not Available Not Available No t Available tramadol 50 mg tablet TAKE 1 TABLET BY MOUTH THREE TIMES DAILY active Not Available Not Available No t Available oxycodone-ac etaminophen 5 mg-325 mg tablet TAKE 1 TABLET BY MOUTH EVERY TWELVE HOURS NEEDED FOR SEVERE PAIN (HOLD TRAMADOL) active Not Available Not Available No t Available methocarbamo l 750 mg tablet TAKE 1 TABLET BY MOUTH EVERY 6 HOURS active Not Available Not Available No t Available tamsulosin 0.4 mg capsule TAKE 1 CAPSULE BY MOUTH AT BEDTIME (BEFORE BEDTIME) active Not Available Not Available No t Available trazodone 100 mg tablet TAKE 2 TABLETS BY MOUTH EVERY DAY AT BEDTIME active Not Available Not Available N ot Available erythromycin 5 mg/gram (0.5 %) eye ointment APPLY 1 CM RIBBON TO LOWER LID OF AFFECTED EYE(S) THREE TIMES DAILY DIRECTED active Not Available Not Available No t Available ferrous sulfate 325 mg (65 mg iron) tablet TAKE 1 TABLET BY MOUTH TWICE DAILY IN THE MORNING AND AT BEDTIME active Not Available Not Available No t Available calcitriol 0.5 mcg capsule TAKE 1 CAPSULE BY MOUTH TWICE WEEKLY (MONDAY AND MONDAY IN THE MORNING) active Not Available Not Available No t Available docusate sodium 100 mg capsule TAKE 1 CAPSULE BY MOUTH AT BEDTIME active Not Available Not Available No t Available bisacodyl 5 mg tablet,delay ed release TAKE 2 TABLETS BY MOUTH ONCE AT NOON THE DAY BEFORE COLONOSCOP Y active Not Available Not Available No t Available furosemide 20 mg tablet TAKE 2 TABLETS BY MOUTH ONCE DAILY IN THE MORNING active Not Available Not Available No t Available sodium chloride 0.9 % intravenous solution Inject 1000 mL by intravenou s route. 2023 active After 500 cc cc BP 82/53 pulse of 50 Not Available Not Available Not Available ergocalcifer ol (vitamin D2) 1,250 mcg (50,000 unit) capsule TAKE 1 CAPSULE BY MOUTH ONCE WEEKLY ON MONDAY MORNING active Not Available Not Available No t Available methylpredni solone 4 mg tablets in a dose pack TAKE DIRECTED ON PACKAGE active Not Available Not Available N ot Available clotrimazole 1 % topical cream APPLY TOPICALLY TO AFFECTED AREA(S) AND SURROUNDIN G AREA(S) TWICE DAILY IN THE MORNING AND IN THE EVENING active Not Available Not Available No t Available calcitriol 0.25 mcg capsule TAKE 1 CAPSULE BY MOUTH IN THE MORNING ON MONDAY, MONDAY, AND MONDAY active Not Available Not Available N ot Available pramipexole 1.5 mg tablet TAKE 1 TABLET BY MOUTH AT BEDTIME active Not Available Not Available No t Available Ventolin HFA 90 mcg/actuatio n aerosol inhaler INHALE 2 PUFFS BY MOUTH EVERY 4 TO 6 HOURS NEEDED active Not Available Not Available No t Available oxycodone 5 mg tablet TAKE 1 TABLET BY MOUTH EVERY 8 HOURS NEEDED FOR PAIN active Not Available Not Available No t Available ciclopirox 0.77 % topical cream APPLY TO THE AFFECTED AREA(S) FEET EXTERNALLY TWICE DAILY active Not Available Not Available No t Available Novolog FlexPen U-100 Insulin aspart 100 unit/mL (3 mL) subcutaneous INJECT 4 UNITS SUBCUTANEO USLY TWICE DAILY WITH MEALS IF BLOOD SUGAR > 180 mg/dl active Not Available Not Available No t Available Alcohol Prep Pads USE DIRECTED TWICE DAILY active Not Available Not Available No t Available UltiCare Pen Needle 31 gauge x 5/16 USE THREE TIMES DAILY active Not Available Not Available No t Available hydrochlorot hiazide 12.5 mg tablet TAKE 1 TABLET BY MOUTH EVERY MORNING active Not Available Not Available No t Available Sure Comfort Pen Needle 31 gauge x 3/16 USE TWICE DAILY active Not Available Not Available No t Available FreeStyle Lite Strips TEST BLOOD SUGAR TWICE DAILY active Not Available Not Available No t Available Lantus Solostar U-100 Insulin 100 unit/mL (3 mL) subcutaneous pen INJECT 6 UNITS SUBCUTANEO USLY EVERY MORNING active Not Available Not Available No t Available FreeStyle [place] Lite kit USE DIRECTED TO TEST BLOOD SUGAR THREE TIMES DAILY active Not Available Not Available No t Available diclofenac 1 % topical gel APPLY 2 GRAMS TOPICALLY AFFECTED AREA(S) 4 TIMES A DAY IN THE MORNING, AT NOON, IN THE EVENING, AND AT BEDTIME NEEDED FOR PAIN NECK active Not Available Not Available No t Available Minerin Creme topical APPLY TOPICALLY ALL OVER BODY TWICE DAILY AFTER BATH active Not Available Not Available N ot Available testosterone 20.25 mg/1.25 gram per pump act.(1.62 %) transdermal gel APPLY 3 PUMPS TOPICALLY TO upper arm DIRECTED DAILY active Not Available Not Available No t Available lidocaine 5 % topical ointment APPLY TOPICALLY TO AFFECTED AREA(S) 1 TO 4 TIMES PER DAY NEEDED active Not Available Not Available No t Available TRUEplus Lancets 33 gauge TEST BLOOD SUGAR 2 OR 3 TIMES DAILY active Not Available Not Available No t Available Jardiance 10 mg tablet TAKE 1 TABLET BY MOUTH EVERY MORNING active Not Available Not Available No t Available Descovy 200 mg-25 mg tablet TAKE 1 TABLET BY MOUTH EVERY DAY active Not Available Not Available No t Available TRUEplus Glucose 4 gram chewable tablet CHEW 4 TABLETS NEEDED FOR low blood sugar (LESS THAN 70mg/dL) active Not Available Not Available No t Available Vitals Date Recorded Oxygen saturation Oxygen saturation in Arterial blood by Pulse oximetry Heart rate Respiratory rate Body temperature Systolic blood pressure Diastolic blood pressure Provider Name and Address Organization Details Last Updated DateTime 4 94 % 94 % 84 /min 18 /min 97.3 [degF] 104 mm[Hg] 64 mm[Hg] Not Available [facility] 4 15:51:23 Date Recorded Respiratory rate Oxygen saturation Oxygen saturation in Arterial blood by Pulse oximetry Heart rate Body temperature Systolic blood pressure Diastolic blood pressure Provider Name and Address Organization Details Last Updated DateTime 4 16 /min 95 % 95 % 60 /min 98.3 [degF] 106 mm[Hg] 64 mm[Hg] Not Available [facility] 4 14:11:52 Date Recorded Body temperature Heart rate Respiratory rate Oxygen saturation Oxygen saturation in Arterial blood by Pulse oximetry Systolic blood pressure Diastolic blood pressure Provider Name and Address Organization Details Last Updated DateTime 4 98.3 [degF] 60 /min 18 /min 94 % 94 % 101 mm[Hg] 60 mm[Hg] Not Available [facility] 4 13:33:48 Date Recorded Heart rate Respiratory rate Oxygen saturation Oxygen saturation in Arterial blood by Pulse oximetry Body temperature Systolic blood pressure Diastolic blood pressure Provider Name and Address Organization Details Last Updated DateTime 4 78 /min 18 /min 96 % 96 % 99 [degF] 118 mm[Hg] 60 mm[Hg] Not Available [facility] 4 15:33:36 Date Recorded Heart rate Oxygen saturation Oxygen saturation in Arterial blood by Pulse oximetry Respiratory rate Body temperature Systolic blood pressure Diastolic blood pressure Provider Name and Address Organization Details Last Updated DateTime 2 72 /min 94 % 94 % 16 /min 98 [degF] 100 mm[Hg] 58 mm[Hg] Not Available [facility] 2 20:16:40 Social History None recorded. Functional Status None recorded. Mental Status None recorded. Family History Nothing Reported. Medical History No medical history recorded. Past Encounters Encounter ID Performer Location Encounter Start Date Encounter Closed Date Diagnosis/Indication Diagnosis SNOMED-CT Code Diagnosis ICD10 Code [id number] Mainor Hdz MD [facility] - [facility] [address] [place] [id number] 07/02/2022 18:35:48 07/04/2022 13:21:04 Diarrhea [id number] R19.7 [id number] Mansi Pratt MD Main - [facility] [address] [place] [id number] 10/24/2023 15:51:18 10/24/2023 22:23:32 Acute conjunctivitis of bilateral eyes [id number] 01683 H10.33 [id number] Kiana Ruiz MD Main - [facility] [address] [place] [phone] 04/17/2024 14:11:49 04/17/2024 21:39:36 Recurrent falls [id number] R29.6 [id number] Tate Manriquez MD Main - [facility] [address] [place], [place] [id number] 05/25/2024 13:33:45 05/25/2024 14:30:16 Accidental fall [id number] W19.XXXA [id number] DARIUS HARLEY MD Main - [facility] [address] [place] [id number] 07/25/2024 15:33:33 07/25/2024 17:37:14 Worried well [id number] Z71.1 Health Concerns Section Related Observation LastModified by Organization Detai ls LastModified Time None Recorded Concern Status LastModified by Organization Details LastModified Time None Recorded Advance Directives Directive None Recorded Payers Encounter Date Sequence Insurance Name Policy Number Policy Pinzon Covered Member ID Pinzon Member ID Guarantor Name 07/02/2022 1 [facility] [employer] - DOS PRIOR TO 2023 - DUAL ELIGIBLE (MEDICARE REPLACEMENT/ADV ANTAGE - HMO) Albert Posada [id number] Albert Posada 10/24/2023 1 [facility] [employer] - DOS ON OR AFTER 2023 - DUAL ELIGIBLE - [facility] [employer] AND ONE CARE (MEDICARE REPLACEMENT/ADV ANTAGE - HMO) Albert Posada [id number] Albert Posada 04/17/2024 1 [facility] [employer] - DOS ON OR AFTER 2023 - DUAL ELIGIBLE - [facility] [employer] ONE CARE (MEDICARE REPLACEMENT/ADV ANTAGE - HMO) Albert Aryan Posada [id number] Albert Baeza Albino 05/25/2024 1 [facility] - DOS ON OR AFTER 2023 - DUAL ELIGIBLE - [facility] [employer] AND ONE CARE (MEDICARE REPLACEMENT/ADV ANTAGE - HMO) Albert Baeza Albino [id number] Albert Posada 07/25/2024 1 [facility] - DOS ON OR AFTER 2023 - DUAL ELIGIBLE - [facility] [employer] AND ONE CARE (MEDICARE REPLACEMENT/ADV ANTAGE - HMO) Albert Baeza Albino [id number] Albert Posada Notes Date Note Type Note Provider Name and Address Organization Details Recorded Time 07/02/2022 text/html HPI: Patient has neck stiffness and pain, stated dizzy yesterday, better today from dizziness, severe pain on hands due to OA, stiff neck ongoing. believes BP might be high. BS reported as 85 this AM. Eat and feeling a bit better. NKA Primary health issues: DMII, CKD, Hyperlipemia, HTN, Osteoarthritis L/R hand and lumbar, MDD, Restless leg syndrome, bilateral LE edema . No syncope but dizziness with activities at times. ..................... ..................... ..................... ..................... ..................... ..................... ............... CRC Nursing Assessment: Comments: CRC RN DID NOT NEED FURTHER INFO ..................... ..................... ..................... ..................... ..................... ..................... ............... Forestry Aide Note: 72 yo male c/o chronic neck pain that extends up to the back of the head and down into the shoulders x months, relieved by hot water showers. Pt also c/o diarrhea today x several episodes without fever, nausea/vomiting, dizziness, malaise. Pt denied dizziness today or over the last several days, stating that he did tell a visiting nurse about a brief episode of dizziness that he had one day last week. Pedal edema significantly decreased over the last couple days compared to normal. ..................... ..................... ..................... ..................... ..................... ..................... ............... Disposition: Fulfilled note: Hx per above Mainor Hdz MD [address] [place] [address],[address], [place], [phone], [facility] 07/02/2022 21:24:47 10/24/2023 text/html CRC Nurse Triage Notes (Ophelia Nichols): Chief Complaints: Pain PMH: Diabetes, Hypertension Allergies: No Known Comments: home visits nurse used. Identity/Address verified. Member reports white discharge from eyes 2 days ago. c/o burning. Not currently being treated for anything ..................... ..................... ..................... ..................... ..................... ..................... ............... Forestry Aide Note From Whitney Montalvo: Pt reporting several days of sudden onset, bilateral eye itching/tearing/swell ing with white discharge. No changes in visual acuity, no fevers. Exam shows white discharge from eyes bilaterally, redness around lids and patient continuously rubbing eyes during visit. Pt denies hx of conjunctivitis and states he has been unable to get in touch with his pcp. Consulted [facility] who will send script of ABX to pharmacy. Went over red flags and no further question or concern at this time. ..................... ..................... ..................... ..................... ..................... ..................... ............... Disposition: Fulfilled Mansi Pratt MD [address] [facility],[address], [place], [phone], [facility] 10/24/2023 16:57:31 04/17/2024 text/html HPI: Member had a fall on 04/16/24 and has hit his head, has a bump on his head and is refusing going to the ER. Member caregiver Daniela requested a home visit to ensure is stable and denied acute sx at this time, other the member being sore. Member is 73 y/o male with DM2, MDD, Restless leg syndrome , CKD 3, CAD, Old SD, BPH, Nocturia, UI, Tremor of both hands, HIV, OA, who lives alone. ..................... ..................... ..................... ..................... ..................... ..................... ............... CRC Nurse Triage Notes (Cecilia Mann): Comments: CRC RN did not require any additional information to process this visit. Forestry Aide POC Test Results from [facility] iSTAT Chem8+ (1) [14:52] Na: 137 mEq/L K: 4.2 mEq/L Cl: 100 mEq/L iCa: 1.17 mmol/L TCO2: 28 mmol/L Glu: 115 mg/dL BUN: 30 mg/dL Crea: 1.3 mg/dL Hct: 44 % Hb: 15 g/dL A EKG (1) [14:52] EKG test performed. Attachments uploaded as part of this test result can be found under Documents section. SEGMD: Limited record review. Patient has a history which includes but not limited to: bradycardic, cardiac arrest, hypogonadism, obesity, CKD 3 with diabetic neuropathy/DM 2, HTN, HPL, hyperparathyroidism, mood disorder, OA, onychomycosis -patient is a limited historian. He reports a recent hospitalization for rapid heartbeat -I do not have access to those records. With signal operator assistance on the phone medic found the patient is taking gabapentin, trazodone, metoprolol, clonazepam, docusate, amlodipine, ASA, ferrous sulfate, Jardiance, pravastatin, pramipexole. He is on no diuretics Patient denies headache, dizziness, he did strike his head on the chair but he denies loss of consciousness. He is not anticoagulated, he denies neck or back pain or acute extremity injury. He is tired Forestry Aide POC Test Results from [facility] Blood Glucose Measurement (16:33:07) Blood Glucose: 122 mg/dL ..................... ..................... ..................... ..................... ..................... ..................... ............... Forestry Aide Note From [facility] N[facility]: Dispatched to the call address for a patient who had multiple falls and struck his head. pt. was found alert and oriented x3 in his apartment language barrier made communication difficult but it was gathered the patient was c/o multiple falls over the last few days inside the apartment one of which he struck his head on a chair in his bedroom and he had a small abrasion from. No loc no neck pain no back pain no blood thinners noted. pt. refused the emergency room for a catscan and also for an assessment on finding out the reason he had been having so many falls. pt. denied any weakness or dizziness at this time saying all of his falls were accidents. complete medication and allergy list was gathered. Vitals assessed on scene. -chest pain -sob -lung sounds clear -abd pain -nvd -head pain -stroke scale findings. pt. was continuously questioned but continued to insist he was not in any pain or discomfort and that he felt great .[facility] contacted and ordered an EKG on the patient due to hypotension and bradycardia. 12 lead ekg showing sinus ivelisse with PVCs. also ordered an IV with 1L of fluid administration and BMP. 18 gauge IV unsuccessful left forearm.18 gauge IV established right forearm-normal saline IV drip over approx. 15-20 minutes total of 1L with minor improvements to blood pressure. [facility] noted the patient should be assessed in the emergency room due to dehydration and also to be assessed for his multiple falls. concerns for syncope and also a history of a bradycardic arrest shown in his records. pt. assessment airway open and patent breathing non labored circulation +radial pulse +heent abnormalities with small abrasion on forehead -jvd -tracheal deviation +and= chest rise and fall abd soft and non tender pelvis in tact +cms in all extremities -stroke scale findings. pt. was advised of red flag warnings with his symptoms and his vital signs and informed on the risks up to and including of not being transported to the hospital instructed to call 911 or follow up with PCP if conditions continued or worsened. pt. signature obtained after advising transport to the hospital and refusing. [facility] ordered to withhold the metoprolol until speaking with PCP in regards to the blood pressure and heart rate issues. all times are approx. report completed by tex nunes. ..................... ..................... ..................... ..................... ..................... ..................... ............... Disposition: Fulfilled Kiana Ruiz MD [address] [place] [address],[address], [place], [phone], [facility] 04/17/2024 20:24:58 05/25/2024 text/html CRC Nurse Triage Notes (Ophelia Nichols): Reason For Request: Patient Fell this morning. Chief Complaints: Falls PMH: Diabetes, Hypertension, HIV Allergies: No Known Comments: Stem Dryer Maintainer verified the member's name//address and phone number. Patient fell this morning at 530am. Patient trying to get OOB, fell onto right side. No LOC. Unknown head strike. No known bruising, redness, swelling or deformity. Verified the pt is not on blood thinners. Patient denies pain. Education provided on the response time and the member was advised to monitor reported s/s and seek emergency treatment if needed. ..................... ..................... ..................... ..................... ..................... ..................... ............... Forestry Aide Note From Leticia Stinson: Pt reports fall while transferring himself from bed to chair at approximately 0530. Unwitnessed, but family member heard fall from other room and was able to get to pt quickly, denies head strike or LOC. 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 Physical exam atraumatic, full +ROM in all extremities, steady gait with walker which pt uses at baseline, able to transfer from chair without incident. [facility] consulted, pt and CHILDCARE CENTER DIRECTOR will monitor, seek further evaluation as needed. Red flags reviewed. ..................... ..................... ..................... ..................... ..................... ..................... ............... Disposition: Fulfilled Tate Manriquez MD [address] [facility],[address], [place], [address], delicious 05/25/2024 14:30:14 07/25/2024 text/html HPI: Member called in stating feeling unwell and crying, calmed down, and reports was in the hospital and was worried with his overall health decline and weakness. Member was at [place] re[facility] until 07/13/24 - Admitted on 06/25/2024for Acute respiratory failure with hypoxia (J96.01) Aspiration pneumonia (J69.0) Septic shock--after a serious fall and being found unconscious by his CHILDCARE CENTER DIRECTOR. Member asked for HV by [facility] today to check his VS and make sure he is well. ..................... ..................... ..................... ..................... ..................... ..................... ............... CRC Nurse Triage Notes (Padmini Stallings): Chief Complaints: Anxiety, Depression, Failure to Thrive PMH: Diabetes, Hypertension, HIV Comments: CRC RN DID NOT NEED FURTHER INFO ..................... ..................... ..................... ..................... ..................... ..................... ............... Forestry Aide Note From Vijay Turner: Dispatched to the call address for the male requesting a well being check. Pt recently discharged home from rehab and has Hx of anxiety and wanted to be evaluated. Pt states he has not had his PCP since he came home but he has been able to eat and drink and has his medications. Pt denies any CP, SoB, vision changes, n/v/d, urinary symptoms or any other complaints at this time. Pt was found walking across the living room, CAOx4, airway open and patent, breathing non labored, able to speak in full sentences, -JVD, -HEENT, skin PWD with good turgor, abd soft non tender/distended, pupils PERRL, +CMSx4, -edema, lung sounds CTA, afebrile. I verified that Pt had his medications, noting several days worth of daily dosed bubble packs). I also confirmed Pt had food available to him and noted milk, eggs, cheese, meat, juice in the fridge and cereal, oatmeal, snacks and other food items on the counter/cabinets. [facility] consulted. Pt was advised that we would reach out to special needs caregiver to restart CHILDCARE CENTER DIRECTOR services. Red flags discussed. ALL times are approx. ..................... ..................... ..................... ..................... ..................... ..................... ............... Disposition: Milan HARLEY MD [address] [facility],[address], [place], [address], [employer] - [employer] 07/25/2024 16:32:00
--- OUTSIDE RECORDS SUMMARY | 2024-09-25 10:53 | XMS_ITS | Continuity of Care Document ---
Author Organization [employer] [place] [employer] Address [address] [place] [address] Care Team Providers [facility] [employer] Director Name Role Phone HIM CCA OTHER Assessment No assessment recorded. Plan of Treatment Reminders Order Date Submit Date Provider Last Modified By Organization Details Last Modified Time Details Appointments None record ed. Lab None record ed. Referral None record ed. Procedures None record ed. Surgeries None record ed. Imaging None record ed. Medication Orders None record ed. Patient TargetsNo targets recorded. Patient InstructionsNo instructions recorded. Reason for Referral None Reported. Medical Equipment None Reported. Allergies No known [...] Available Not Available No t Available [employer] [place] Lite kit USE DIRECTED TO TEST BLOOD [...] Available No t Available Vitals Date Recorded Heart rate Respiratory rate Oxygen saturation Oxygen saturation in Arterial blood by Pulse oximetry Body temperature Systolic blood pressure Diastolic blood pressure Provider Name and Address Organization Details Last Updated DateTime 78 /min 18 /min 96 % 96 % 99 [degF] 118 mm[Hg] 60 mm[Hg] Not Available [facility] - production 15:33:36 Social History None recorded. Functional Status None recorded. Mental Status None recorded. Family History Nothing Reported. Medical History No medical history recorded. Past Encounters Encounter ID Performer Location Encounter Start Date Encounter Closed Date Diagnosis/Indication Diagnosis SNOMED-CT Code Diagnosis ICD10 Code [id number] DARIUS HARLEY MD Main - [facility] [address] [place] [phone] 07/25/2024 15:33:33 07/25/2024 17:37:14 Worried well [id number] Z71.1 Health Concerns Section Related Observation LastModified by Organization Detai ls LastModified Time None Recorded Concern Status LastModified by Organization Details LastModified Time None Recorded Payers Encounter Date Sequence Insurance Name Policy Number Policy Pinzon Covered Member ID Pinzon Member ID Guarantor Name 07/25/2024 1 [facility] - DOS ON OR AFTER 2023 - DUAL ELIGIBLE - DETENTION OPTIONS AND ONE CARE (MEDICARE REPLACEMENT/ADV ANTAGE - HMO) Albert Posada [id number] Albert Posada Notes Date Note Type Note Provider Name and Address Organization Details Recorded Time 07/25/2024 text/html HPI: Member called in stating feeling unwell and crying, calmed down, and reports was in the hospital and was worried with his overall health decline and weakness. Member was at [place] [facility] until 07/13/24 - Admitted on 06/25/2024for Acute respiratory failure with hypoxia (J96.01) Aspiration pneumonia (J69.0) Septic shock--after a serious fall and being found unconscious by his RELEASE AND TECHNICAL RECORDS CLERK. Member asked for HV by [facility] today to check his VS and make sure he is well. .................. .................. .................. .................. .................. .................. .................. ............... CRC Nurse Triage Notes (Padmini Stallings): Chief Complaints: Anxiety, Depression, Failure to Thrive PMH: Diabetes, Hypertension, HIV Comments: CRC RN DID NOT NEED FURTHER INFO .................. .................. .................. .................. .................. .................. .................. ............... Client Analyst Note From Vijay Turner: Dispatched to the [...] and other food items on the counter/cabinets. C consulted. Pt was advised that we would reach out to housekeeper caregiver to restart RELEASE AND TECHNICAL RECORDS CLERK services. Red flags discussed. ALL times are approx. .................. .................. .................. .................. .................. .................. .................. ............... Disposition: Milan HARLEY MD [address] [facility],[address], [place], [address], [employer] - [employer] 07/25/2024 16:32:00
[2024-09-25 12:09] LABS: Hematocrit 43.5 % (42.0-52.0); Hemoglobin 14.7 g/dl (14.0-18.0); Mean Corpuscular HGB Conc 33.8 g/dl (31.0-36.0); Mean Corpuscular Hemoglobin 33.9 pg (27.0-33.0); Mean Corpuscular Volume 100.2 fL (80.0-98.0); Mean Platelet Volume 9.6 fL (9.4-12.4); Platelet Count 243 X10*3/uL (160-400); Red Blood Count 4.34 X10*6/uL (4.60-5.80); Red Cell Distribution Width 14.5 % (11.0-16.0); White Blood Count 8.4 X10*3/uL (4.8-10.8)
[2024-09-25 13:09] LABS: Prostate Specific Antigen 0.51 ng/mL (<0.05-4.0)
[2024-09-30 17:49] LABS: Testosterone, Total 215 ng/dL (250-1100)
== END 2024-09-25 10:49 | disposition home or self-care (01) ==
LOC: HO.LAB 10:48
PROVIDERS: PCP Nurse Practitioner Primary Care; Visit Provider Urology
DX: E29.1 Testicular hypofunction (principal); Z12.5 Encounter for screening for malignant neoplasm of prostate
CPT/HCPCS: 36415; 84153; 84403; 85027

== ENCOUNTER 2024-10-01 13:54 | Outpatient (AMB) | payer OTHER, SELFPAY ==
--- NOTE | 2024-10-01 14:06 | A.OFFVIS_ITS ---
Intake Visit Reasons: PSA/Testo(Pending) Intake Note: Patient is present for PSA/TESTO Urology Medication:TESTOSTERONE Antibiotic Allergy:NONE Blood Thinner:NONE Curriculum Coach Required: No Allergies No Known Allergies [No Known Allergies*] Allergy (Verified 10/01/24 14:08) HPI Comments Details: Albert is a pleasant male. He is a patient of Dr. Warren. He is seen for the following urologic conditions - hypogonadism - erectile dysfunction Lithuanian translation provided by qualified medical certification specialist Should apply 1 pump to each arm for total of 3 pumps daily When applying will need to massage into skin until dry Happy about current energy Might benefit from seeds if numbers remain low Six-month follow-up labs Hypogonadism Ongoing management Current therapy - AndroGel 3 pumps daily Laboratories 07/28 T 400, PSA 0.6, 05/29 T195 PSA 2.5, 08/29 T340 PSA 1.2, 11/30 T 500 P 1.4 - 01/28 T 172 P 0.83, 06/30 T 296 0.5 40, 12/01 179 1.0, 04/30 271 0.65, 01/30 222 0.6 H 44, 10/01 215 0.5 Continue with topical therapy Repeat lab work in 6 months Erectile dysfunction Multifactorial History of diabetes and vascular disease with prior smoking history PFSH Medical History Encounter for assessment of decision-making capacity Pneumonia Encounter for medication monitoring Depression Restless leg syndrome Peripheral neuropathy Personal history of nicotine dependence History of non-ST elevation myocardial infarction (NSTEMI) (~09/2018) History of cardiac arrest (~09/2018) Other and unspecified hyperlipidemia Essential hypertension Type 2 diabetes mellitus with unspecified complications Atherosclerotic cardiovascular disease Primary osteoarthritis, left hand Primary osteoarthritis, right hand Surgical History History of epidermal inclusion cyst excision (~07/2021) History of hand surgery (~03/2015) History of cataract surgery (~2017) History of cardiac catheterization (~10/2018) Family History Mother No problems noted. Mother No problems noted. 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 Review of Systems Const Denies chills and Denies fever(s) Card Reports no additional complaints and Denies syncope Resp Denies cough GI Denies abdominal pain and Denies heartburn Reports as per HPI and Denies change in libido Neuro Denies syncope Psych Denies change in libido Endo Denies change in libido Physical Exam Const General: cooperative, healthy appearing, comfortable and no acute distress Orientation/consciousness: patient oriented x3 HEENT Face and sinus: Yes normal facial exam Mouth: moist mucous membranes Neck Neck: Yes normal visual inspection, Yes full ROM and Yes trachea midline Chest Chest palpation & inspection: normal inspection of the chest Resp Effort & Inspection: normal respiratory effort, able to speak in complete sentences and no respiratory distress GI Inspection: Yes normal to inspection Back/Spine/Pelvis Cervical Spine: normal cervical lordosis Thoracic/Lumbar Spine: thoracic and lumbar spine normal to inspection Skin General skin exam: no rashes or lesions noted Neuro General: patient oriented x3, gait normal, tone normal and moves all extremities Extrem General: Yes normal to inspection and Yes capillary refill normal Assessment & Plan Assessment & Plan (1) Erectile dysfunction associated with type 2 diabetes mellitus: Code(s): E11.69 - Type 2 diabetes mellitus with other specified complication; N52.1 - Erectile dysfunction due to diseases classified elsewhere Category: Medical (2) Hypogonadism in male: Code(s): E29.1 - Testicular hypofunction Category: Medical Plan G Code G2211 Has been applied in accordance with CMS guidelines ( Medicare and Medicaid programs; 2023 Payment Policies ) to convey the inherent complexity in ongoing patient care within the urology clinic. This deliberate utilization aligns with the visits complexity associated with medical care services serving as a focal point for necessary healthcare, addressing the patient's singular serious or complex condition. This judicious use ensure was appropriate reimbursement, especially in the context of managing such conditions within our specialized, longitudinal urologic practice. This patient has a complex and chronic urologic condition that requires longitudinal follow-up. CMS, Medicare and Medicaid programs; 2023 Payment Policies Fed. Reg 88 (39): 80934-[address]27 (May.152022) 6m f/u labs Orders: Orders Testosterone, Total 6 Months E29.1 - Testicular hypofunction Complete Blood Count no Diff 6 Months E29.1 - Testicular hypofunction Prostate Specific Antigen 6 Months E29.1 - Testicular hypofunction Patient Instructions: Imaging studies, laboratory and physical exam results were discussed and reviewed in detail. No major barriers to patient understanding were identified. An opportunity to ask questions regarding the treatment plan was provided. All questions were answered. The patient expressed understanding and agreement with the above treatment plan. The patient is aware they should contact our office by phone for worsening of their current condition or the appearance of new urologic symptoms. Compliance is encouraged with any medications and followup testing that is ordered. It is a privilege to participate in the urologic care of your patient. If you have any questions or concerns regarding treatment for the above conditions, or other urologic issues, please do not hesitate to contact me. The office telephone contact is [phone]. This note is constructed using voice recognition software. While every effort has been made to ensure accuracy assembler aircraft power plant errors may have been included. Yours sincerely, Dr Mango Ragland MD, [facility] - Urology Providers of Expert, Compassionate Care for the Genitourinary System Coding Level of Care Code Est Pt Level 3 (02170) Diagnoses Erectile dysfunction associated with type 2 diabetes mellitus E11.69; N52.1 Hypogonadism in male E29.1
== END 2024-10-01 14:58 | disposition home or self-care (01) ==
PROVIDERS: PCP Nurse Practitioner Primary Care; Visit Provider Urology
DX: E11.69 Type 2 diabetes mellitus with other specified complication (principal); N52.1 Erectile dysfunction due to diseases classified elsewhere; E29.1 Testicular hypofunction
CPT/HCPCS: 99213

== ENCOUNTER → 2024-10-01 13:54 | Outpatient (BNVA) | payer OTHER, SELFPAY | PROVIDERS: PCP Nurse Practitioner Primary Care; Visit Provider Urology | DX: E11.69 Type 2 diabetes mellitus with other specified complication (principal); N52.1 Erectile dysfunction due to diseases classified elsewhere; E29.1 Testicular hypofunction | CPT/HCPCS: 99212 ==

== ENCOUNTER 2024-10-30 10:45 | Outpatient (AMB) | payer OTHER, SELFPAY ==
--- NOTE | 2024-10-30 10:48 | A.OFFVIS_ITS ---
Vital Signs 10/30/24 10:49 Height 5 ft 8 in Weight 164 lb 0.383 oz BMI 24.9 BP 90/50 L Blood Pressure Location Lt brachial Position Sitting Pulse 80 Pulse Source Pulse Oximeter Intake Visit Reasons: follow up/rs from 08/08/24 Sustainability Specialist Required: Yes Sustainability Specialist Name: Joe [id number] Accompanied by: Self / Same As Patient Allergies No Known Allergies [No Known Allergies*] Allergy (Verified 10/01/24 14:08) Medication List - Last Reviewed 10/30/24 by Lucia Mckeon CMA acetaminophen (Tylenol Extra Strength) 500 mg PO Q6H PRN amlodipine 5 mg PO DAILY arm brace (Wrist Brace Large) As directed aspirin (Adult Low Dose Aspirin) 81 mg PO BEDTIME atorvastatin 40 mg PO DAILY blood sugar diagnostic As directed calcitriol 0.25 mcg PO MOWEFR@0900 clotrimazole 1% 1 appl topical BID empagliflozin (Jardiance) 25 mg PO DAILY ferrous sulfate 325 mg PO BID furosemide (Lasix) 40 mg PO DAILY metoprolol succinate ER 25 mg PO DAILY pen needle, diabetic As directed pen needle, diabetic (UltiCare Pen Needle) As directed testosterone (AndroGel) 3 pumps transdermal DAILY 28 days trazodone 200 mg PO BEDTIME HPI Comments Details: Albert returns for follow-up. To recall, he came for elective back injection in 2018 due to back pain. Upon induction of anesthesia, he developed PEA type cardiac arrest. He was then successfully resuscitated. He underwent cardiac catheterization but no interventions. Had nonobstructive CAD. After that, it seems he has had many hospitalizations including [employer] as well as [facility]. Somewhat confusing and difficult to summarize everything. In [employer], he was thought to have rather SVT type episodes with short burst. Then put on some beta-blockers. Then it seems he was at [facility] where he was thought to have atrial fibrillation put on Eliquis. However, not on Eliquis anymore based on his med list. PCP note also reflects that it was stopped but not clear by who or why. Part of the issues that patient does not know much and has minimal insight into medical issues. With regard to symptoms, he states he feels completely normal and has absolutely no concerns. No cardiac symptoms at all. [facility] Medical History Encounter for assessment of decision-making capacity Pneumonia Encounter for medication monitoring Depression Restless leg syndrome Peripheral neuropathy Personal history of nicotine dependence History of non-ST elevation myocardial infarction (NSTEMI) (~09/2018) History of cardiac arrest (~09/2018) Other and unspecified hyperlipidemia Essential hypertension Type 2 diabetes mellitus with unspecified complications Atherosclerotic cardiovascular disease Primary osteoarthritis, left hand Primary osteoarthritis, right hand Surgical History History of epidermal inclusion cyst excision (~07/2021) History of hand surgery (~03/2015) History of cataract surgery (~2017) History of cardiac catheterization (~10/2018) Family History Mother No problems noted. Mother No problems noted. 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 Review of Systems Const Denies chills, Denies fatigue, Denies fever(s), Denies weight gain and Denies weight loss ENT Denies dizziness Card Denies chest pain, Denies leg edema, Denies lightheadedness, Denies palpitations, Denies dyspnea on exertion, Denies orthopnea and Denies other Resp Denies cough and Denies dyspnea on exertion GI Denies hematochezia and Denies change in stool character Musc Denies abnormal gait, Denies muscle weakness, Denies numbness, Denies radiating pain into limb and Denies tingling Neuro Denies abnormal gait, Denies dizziness, Denies numbness and Denies tingling Endo Denies fatigue and Denies palpitations Physical Exam Vital Signs: Last Vital Signs Pulse 80 10/30/24 10:49 BP 90/50 L 10/30/24 10:49 BMI result Body Mass Index 24.9 Const General: comfortable and no acute distress Orientation/consciousness: patient oriented x3 HEENT Other: Unremarkable Head: Yes normal to inspection Neck Neck: Yes normal visual inspection Chest Chest palpation & inspection: normal inspection of the chest Resp Auscultation: clear to auscultation bilaterally Cardio Palpation: normal PMI Heart sounds: S1 normal heart sound present, S2 normal heart sound present, no gallops, no murmurs and no rubs GI Palpation (GI): Soft to palpation Back/Spine/Pelvis Other: unremarkable Skin General skin exam: no rashes or lesions noted Neuro General: patient oriented x3 Extrem General: Yes normal to inspection Psych Mental Status: mental status grossly normal Assessment & Plan Assessment & Plan (1) Atherosclerotic cardiovascular disease: Code(s): I25.10 - Atherosclerotic heart disease of [place] coronary artery without angina pectoris Category: Medical Plan: Cardiac catheterization - 2018- mid LAD 60% stenosis; mid RCA 65-70% stenosi but IFR/FFR negative. [id number] 50-55%; basal inferior/inferolateral hypokinesis. No significant valvular findings. Thought to be similar to prior. Myocardial perfusion imaging study, 2022-likely normal perfusion. Clinically, no angina. On aspirin, beta-blockers and statins. LDL well controlled. (2) SVT (supraventricular tachycardia): Code(s): I47.10 - Supraventricular tachycardia, unspecified Category: Medical Plan: Unclear if he was having SVT type episodes or ventricular. Could also be supraventricular with aberrancy. He was put on beta-blockers. Clinically, no symptoms. In the Holter from last year, frequent supraventricular ectopy with a burden of about 4% of ventricular ectopy with a burden of about 2%. (3) PAF (paroxysmal atrial fibrillation): Code(s): I48.0 - Paroxysmal atrial fibrillation Category: Medical Plan: Per [facility] discharge summary, atrial fibrillation noted it seems he was acutely ill with septic shock at that time. Apparently put on Eliquis but not in his list anymore. Also mention of hematuria in that same admission. We will recheck Holter. Patient himself has no insight and preferably just hold off on anticoagulation unless definitive evidence. (4) Essential hypertension: Code(s): I10 - Essential (primary) hypertension Category: Medical Plan: On amlodipine. (5) Other and unspecified hyperlipidemia: Code(s): E78.5 - Hyperlipidemia, unspecified Category: Medical Plan: On statins. Well-controlled cholesterol. (6) Leg swelling: Code(s): M79.89 - Other specified soft tissue disorders Category: Medical Plan: Remains on Lasix. Orders: Orders ECG 14 day holter monitor Today I47.10 - Supraventricular tachycardia, unspecified, I48.0 - Paroxysmal atrial fibrillation Coding Level of Care Code Est Pt Level 4 (40857) Diagnoses Atherosclerotic cardiovascular disease I25.10 SVT (supraventricular tachycardia) I47.10 PAF (paroxysmal atrial fibrillation) I48.0 Essential hypertension I10 Other and unspecified hyperlipidemia E78.5 Leg swelling M79.89
[2024-10-30 10:49] VITALS: BP 90/50; PULSE 80; BMI 24.9
--- OUTSIDE RECORDS SUMMARY | 2024-10-30 12:01 | XMS_ITS | Encounter Summary ---
Author Organization [employer] Address [address] [facility] [address] [place] [address] Care Team Providers Care Cleat Layer Name Role Phone Kristi Warren Primary Care Provider [phone] Reason for Visit * Reason Onset Date Comments Durable Medical Equipment 07/27/2023 Encounter Details Date Type Department Care Team ([facility] st Contact Info) Description 07/27/[address] [facility] [address] [place], [place] [phone] Kristi Warren ANP [address] [place], [place] [phone] Durable Medical Equipment Social History Tobacco Use Types Packs/Day Years Used Date Smoking Tobacco: Some Days Cigarettes Passive Smoke Exposure: Never Smokeless Tobacco: Never Alcohol Use Standard Drinks/Week Comments Not Currently 0 (1 standard drink = 0.6 oz pur e alcohol) Housing Stability Answer Date Recorded What is your housing situation today? I have roseanna hannah 07/24/[address] you li ve. Do you have problems with any of the following? None of the above 07/24/2023 Food Insecurity Answer Date Recorded Within the past 12 months, y ou worried that your food would run out before you got money to buy more: Never True 07/24/2023 Within the past 12 months,th e food you bought just didn't last and you didn't have enough money to get more: Never True Transportation Answer Date Recorded In the past 12 months, has l ack of transportation kept you from medical appts, meetings, work or from getting things needed for daily living? No 07/24/2023 Utilities Answer Date Recorded In the past 12 months, has t he electric, gas, oil or water company threatened to shut off services in your home? No 07/24/2023 Depression Answer Date Recorded Patient Health Questionnaire-2 Score 0 02/28/2023 Sex and Gender Information Value Date Recorded Sex Assigned at Male 08/08/2022 10:19 AM EDT Legal Sex Male 10:19 AM EDT Gender Identity Male 08/08/2022 10:19 AM EDT Sexual Orientation Don't know 08/08/2022 10 :19 AM EDT documented as of this encounter Miscellaneous Notes * Telephone Encounter - BATSHEVA Pereyra - 07/28/2023 4:51 PM EDT Sent glucometer yesterday * Telephone Encounter - Morenita Mackay - 07/27/2023 3:44 PM EDT Tc from [facility] requesting DME for pt on glucometer kit. Any question contact [facility] documented in this encounter Plan of Treatment Not on file documented as of this encounter Visit Diagnoses Not on filedocumented in this encounter Care Teams Cleat Layer Relationship Specialty Start Date End Date Kristi Warren ANP [address] [place] [phone] PCP - General Family Medicine 03/24/20 [facility] 08/09/24 documented as of this encounter
--- OUTSIDE RECORDS SUMMARY | 2024-10-30 12:01 | XMS_ITS | Encounter Summary ---
Author Organization [employer] Address [address] [facility] [address] [place] [address] Care Team Providers Care Dietary Tech Name Role Phone Kristi Warren Primary Care Provider [phone] Reason for Visit * Reason Comments Follow-up Encounter Details Date Type Department Care Team ([facility] st Contact Info) Description 10/17/2024 1:30 PM EST Office Visit [facility] MEDICINE [address] [place], [place] [phone] Kristi Warren ANP [address] [place] [address] Social History Tobacco Use Types Packs/Day Years Used Date Smoking Tobacco: Every Day Cigarettes Passive Smoke Exposure: Never Smokeless Tobacco: Never Tobacco Cessation:Ready to Q uit: Not Asked; Counseling Given: Not Answered Comments:Reports having an occasional cigarette but is not routinely smoking. Alcohol Use Standard Drinks/Week Comments Not Currently 0 (1 standard drink = 0.6 oz pur e alcohol) Depression Answer Date Recorded Patient Health Questionnaire-9 Score 12 08/22/2024 Patient Health Questionnaire-9 Score 12 08/22/2024 Last PHQ-9: Questionnaire Data Not on file 1 10/22/2023 Housing Stability Answer Date Recorded What is your housing situation today? I have roseanna hannah 05/24/[address] you li ve. Do you have problems with any of the following? None of the above 05/24/2024 Food Insecurity Answer Date Recorded Within the past 12 months, y ou worried that your food would run out before you got money to buy more: Often true 10/17/2024 Within the past 12 months,th e food you bought just didn't last and you didn't have enough money to get more: Not on file 06/2025 Transportation Answer Date Recorded In the past [...] Date Recorded Patient Health Questionnaire-2 Score 0 08/22/2024 Sex and Gender Information Value Date Recorded Sex Assigned at Male 08/08/2022 10:19 AM EDT Legal Sex Male 10:19 AM EDT Gender Identity Male 08/08/2022 10:19 AM EDT Sexual Orientation Don't know 08/08/2022 10 :19 AM EDT documented as of this encounter Last Filed Vital Signs Vital Sign Reading Time Taken Comments Blood Pressure 106/61 10/17/2024 12:27 PM EST Pulse 62 10/17/2024 12:27 PM EST Temperature 36.4 ??C (97.6 ??F) 10/17/2024 12:[address] Respiratory Rate 14 10/17/2024 12:27 PM EST Oxygen Saturation 93% 10/17/2024 12:27 PM EST Inhaled Oxygen Concentration - - Weight 74.4 kg (164 lb) 10/17/2024 12:27 PM EST Height - - Body Mass Index 26.47 08/06/2024 9:45 AM EDT documented in this encounter Plan of Treatment Not on file documented as of this encounter Goals Goal Patient Goal Type Associated Problems Recent Progress Patient-Stated? Author Blood Pressure < 140/90 Blood Pressure 106/61(2024 12:27 PM EST) No Mike Harris, PharmD Hemoglobin A1c < 7.5 Result Component 6.3( 9:46 AM EDT) No Mike Harris PharmD documented as of this encounter Visit Diagnoses Not on filedocumented in this encounter Additional Health Concerns Assessment Noted Time PHQ-9 Depression Total Score: 12 024 1:35 PM EST documented as of this encounter Care Teams Dietary Tech Relationship Specialty Start Date End Date Kristi Warren ANP [address] [place] [id number] PCP - General Family Medicine 03/24/20 [facility] 08/09/24 documented as of this encounter
--- OUTSIDE RECORDS SUMMARY | 2024-10-30 12:01 | XMS_ITS | Encounter Summary ---
Author Organization [employer] Address [address] [facility] [address] [place] [address] Care Team Providers Care Tennis Centre Manager Name Role Phone Kristi Warren ANP Primary Care Provider [phone] Reason for Visit * Reason Onset Date Comments Durable Medical Equipment 04/20/2023 Encounter Details Date Type Department Care Team ([facility] st Contact Info) Description 04/20/2023 Telephone [facility] MEDICINE [address] [place], [place] [phone] Kristi Warren ANP [address] [place] [address] Durable Medical Equipment Social History Tobacco Use Types Packs/Day Years Used Date Smoking Tobacco: Some Days Cigarettes Passive Smoke Exposure: Never Smokeless Tobacco: Never Alcohol Use Standard Drinks/Week Comments Not Currently 0 (1 standard drink = 0.6 oz pur e alcohol) Depression Answer Date Recorded Patient Health Questionnaire-2 Score 0 02/28/2023 Sex and Gender Information Value Date Recorded Sex Assigned at Male 08/08/2022 10:19 AM EDT Legal Sex Male 10:19 AM EDT Gender Identity Male 08/08/2022 10:19 AM EDT Sexual Orientation Don't know 08/08/2022 10 :19 AM EDT COVID-19 Exposure Response Date Recorded In the last 10 days, have yo u been in contact with someone who was confirmed or suspected to have Coronavirus/COVID-19? No / Unsure 04/18/2023 12:27 PM EDT documented as of this encounter Miscellaneous Notes * Telephone Encounter - Monik Kramer - 04/20/2023 2:52 PM EDT Tc from pt requesting a new blood pressure machine. States the one he has is not working. documented in this encounter Plan of Treatment Not on file documented as of this encounter Visit Diagnoses Not on filedocumented in this encounter Care Teams Tennis Centre Manager Relationship Specialty Start Date End Date Kristi Warren ANP [address] [place] [phone] PCP - General Family Medicine 03/[facility] documented as of this encounter
--- OUTSIDE RECORDS SUMMARY | 2024-10-30 12:01 | XMS_ITS | Encounter Summary ---
Author Organization [employer] Address [address] [facility] [address] [place] [address] Care Team Providers Care Autocad Designer Name Role Phone Kristi Warren Primary Care Provider [phone] Encounter Details Date Type Department Care Team (Late st Contact Info) Description 08/15/2024 Telephone [facility] MEDICINE [address] [place], [place] [phone] Kristi Warren ANP [address] [place] [address] Social History Tobacco Use Types Packs/Day Years Used Date Smoking Tobacco: Every Day Cigarettes Passive Smoke Exposure: Never Smokeless Tobacco: Never Comments:Reports having an o ccasional cigarette but is not routinely smoking. Alcohol Use Standard Drinks/Week Comments Not Currently 0 (1 standard drink = 0.6 oz pur e alcohol) Depression Answer Date Recorded Patient Health Questionnaire-9 Score 13 05/24/2024 Patient Health Questionnaire-9 Score 13 05/24/2024 Last PHQ-9: Questionnaire Data Not on file 0 05/24/2024 Housing Stability Answer Date Recorded What is [...] Answer Date Recorded Patient Health Questionnaire-2 Score 3 05/24/2024 Sex and Gender Information Value Date Recorded Sex Assigned at Male 08/08/2022 10:19 AM EDT Legal Sex Male 10:19 AM EDT Gender Identity Male 08/08/2022 10:19 AM EDT Sexual Orientation Don't know 08/08/2022 10 :19 AM EDT documented as of this encounter Miscellaneous Notes * Telephone Encounter - BATSHEVA Pereyra - 08/19/2024 10:35 AM EST Pt had MTM visit w/ pharmacy, please see notes from that DOS * Telephone Encounter - [facility] - 08/15/2024 11:11 AM EST TC from Viktoria Thomas FASHION MARKETER of pt stated that pt doesn't have no more meds due to pt is taking doseof trazodone of 7 days in 1 night also taking a lot of gabapentin in a Day and regular medication pt is crushing them and put in on sink is no taking none of his medication. Pt used [facility] and he is not due until August 30. [facility] requesting a call from PCP to discuss pt medication. PCP DR. Warren documented in this encounter Plan of Treatment Not on file documented as of this encounter Goals Goal Patient Goal Type Associated Problems Recent Progress Patient-Stated? Author Blood Pressure < 140/90 Blood Pressure 106/61(2024 12:27 PM EST) No Mike Harris PharmD Hemoglobin A1c < 7.5 Result Component 6.3( 9:46 AM EDT) No Mike Harris PharmD documented as of this encounter Visit Diagnoses Not on filedocumented in this encounter Additional Health Concerns Assessment Noted Time PHQ-9 Depression Total Score: 13 024 1:24 PM EDT documented as of this encounter Care Teams Autocad Designer Relationship Specialty Start Date End Date Kristi Warren ANP [address] [place] [address] PCP - General Family Medicine 03/24/20 [facility] 08/09/24 documented as of this encounter
--- OUTSIDE RECORDS SUMMARY | 2024-10-30 12:01 | XMS_ITS | Data Portability ---
Author Organization [employer], [facility] Address [address] [place] [address] Care Team Providers Care Correspondence Analyst Name Role Phone HIM CCA OTHER Assessment [...] he called for an instED evaluation. VSS. Lock Assembler on site reports visual sahu are grossly [...] Assessment and Plan as documented by the Lock Assembler. We discussed the diagnostic uncertainty of home visits and the risk associated with this. The patient given the opportunity to ask questions via yarder engineer. Discussion was held with the yarder engineer on the language line at length, given history of bradycardic arrest and frequent falls he is at risk for another fall, severe injury, syncope, possible cardiac arrest and . Medic verbalized/verif ied that the patient understood from the yarder engineer the risk and he is adamantly refusing [...] was explained to the patient via the communications attendant. Red flags reviewed through yarder engineer advised if develops CP/severe SOB/turning blue/uncontrolle d n/v/d or black/bloody emesis or stool/ AMS/ syncope/severe headache, vision changes, focal weakness recurrent falls /hi fever to call 911- verbalized understanding of instructions to the medic [email or web address] Not available 04/17/2024 20:24:51 Plan of Treatment Reminders Order Date Submit Date Provider Last Modified By Organization Details Last Modified Time Details Appointments None recorded. Lab BMP, serum or plasma 2023 [email or web address] 0 [facility], [address] [place] [address], [id number], 4 15:45:39 Referral None recorded. Procedures None recorded. Surgeries None recorded. Imaging electrocard iogram 2023 [email or web address] [facility], [address] [place] [address], [id number], 4 15:45:41 Medication Orders erythromyci n 5 mg/gram (0.5 %) eye ointment 2023 [facility], [address] [place] [address], [id number], 4 12:12:14 sodium chloride 0.9 % intravenous solution 2023 024 [email or web address] 0 [facility], [address] [place] [address], [id number], 4 15:45:39 Patient TargetsNo targets recorded. Patient InstructionsNo instructions recorded. Reason for Referral None Reported. Results Created Date Observation Date Name Description Value Unit Range Abnormal Flag Note LastModifiedBy Organization Detail LastModifiedTime 07/07/28 2404/17/2024 camilo gu am No observ ation record ed. [email or web address] Main [address], [id number], 04/17/2024 15:45:41 Result Notes None recorded. Procedures Surgical History None recorded. Imaging Results Imaging Date Name Status LastModified by Organization Details LastModified Time 04/17/2024 electrocardiogram completed [email or web address] [facility] [address] [place] [address], [phone], 04/17/2024 15:45:41 Procedure Notes None recorded. Medical [...] Available Not Available No t Available [employer] [place] Lite kit USE DIRECTED TO TEST BLOOD [...] [degF] 104 mm[Hg] 64 mm[Hg] Not Available [employer] 4 15:51:23 Date Recorded Respiratory rate Oxygen saturation Oxygen saturation in Arterial blood by Pulse oximetry Heart rate Body temperature Systolic blood pressure Diastolic blood pressure Provider Name and Address Organization Details Last Updated DateTime 4 16 /min 95 % 95 % 60 /min 98.3 [degF] 106 mm[Hg] 64 mm[Hg] Not Available [employer] 4 14:11:52 Date Recorded Body temperature Heart rate Respiratory rate Oxygen saturation Oxygen saturation in Arterial blood by Pulse oximetry Systolic blood pressure Diastolic blood pressure Provider Name and Address Organization Details Last Updated DateTime 4 98.3 [degF] 60 /min 18 /min 94 % 94 % 101 mm[Hg] 60 mm[Hg] Not Available [employer] 4 13:33:48 Date Recorded Heart rate Respiratory rate Oxygen saturation Oxygen saturation in Arterial blood by Pulse oximetry Body temperature Systolic blood pressure Diastolic blood pressure Provider Name and Address Organization Details Last Updated DateTime 4 78 /min 18 /min 96 % 96 % 99 [degF] 118 mm[Hg] 60 mm[Hg] Not Available [employer] 4 15:33:36 Date Recorded Heart rate Oxygen saturation Oxygen saturation in Arterial blood by Pulse oximetry Respiratory rate Body temperature Systolic blood pressure Diastolic blood pressure Provider Name and Address Organization Details Last Updated DateTime 2 72 /min 94 % 94 % 16 /min 98 [degF] 100 mm[Hg] 58 mm[Hg] Not Available [employer] 2 20:16:40 Social History None recorded. Functional Status None recorded. Mental Status None recorded. Family History Nothing Reported. Medical History No medical history recorded. Past Encounters Encounter ID Performer Location Encounter Start Date Encounter Closed Date Diagnosis/Indication Diagnosis SNOMED-CT Code Diagnosis ICD10 Code Diagnosis Note [id number] Mainor Hdz MD Main - [facility] [address] [place] [phone] 07/02/2022 18:35:48 07/04/2022 13:21:04 Diarrhea 80179892 R19.7 Mild. No s/s of dehyrdatio n. Labs notable for [place] of 1.9 (prior chart review shows [place] of 1.3-1.4 in 2019). Advised to stay hydrated and have close f/u with PCP [id number] Mansi Pratt MD Main - [facility] [address] [place] [phone] 10/24/2023 15:51:18 10/24/2023 22:23:32 Acute conjunctivitis of bilateral eyes [id number] 68444 H10.33 [id number] Kiana Ruiz MD Main - [address] [phone] 04/17/2024 14:11:49 04/17/2024 21:39:36 Recurrent falls [id number] R29.6 Labs stable for baseline CKD 3/ concern for hypotensio n-patient is being beta-block fidelia on metoprolol on with amlodipine -I have no access to prior EKGs or recent hospital notes After 1 L of IV fluid blood pressure slightly improved 98/56 with pulse of 62 [id number] Tate Manriquez MD Main - [facility] [address] [place] [phone] 05/25/2024 13:33:45 05/25/2024 14:30:16 Accidental fall [id number] W19.XXXA As noted, we were called to see this patient regarding concerns of fall. Evaluation in the field was performed by my racecar driver colleague, as noted above, I provided real-time direction and supervisio n for this visit. The evaluation revealed no concerning findings other than a skin tear. No head strike, non-focal reassuring neuro exam, no reason to distrust history. No need for imaging. Impression :Fall without e/o serious complicati ons Plan:Suppo rtive care - basic bandage to wound PRN, pain control with OTC PRNNo need for brain or arm imaging based on history and exam Primary care, considerev aluation of falls prevention strategies , possibly including bed rail Dispositio n:We discussed the diagnostic uncertaint y of home visits and the risk associated with this. In this case, the patient and I felt this to be an acceptable and reasonable amount of risk given the benefit of avoiding an ED visit. We discussed the need to seek care urgently/e mergently in the setting of any new or worsening serious symptoms. [id number] DARIUS HARLEY MD Main - [facility] [address] [place] [phone] 07/25/2024 15:33:33 07/25/2024 17:37:14 Worried well [id number] Z71.1 Evaluation in the field was performed by my racecar driver colleague, as noted above, I provided real-time direction and supervisio n for this visit. The evaluation revealed a 74-year-ol d male, status post recent admission for acute respirator y failure with hypoxia, aspiration pneumonia, and septic shock following a serious fall, during which he was found unconsciou s by his PLUNKET NURSE. He was transferre d to [facility] until 07/13/24. The patient is very tearful and anxious about his health, though he has no acute complaints at this time, aside from the concern that he lives alone and would like to restart his PLUNKET NURSE services but is unsure how to do so. He denies fever, chills, chest pain, shortness of breath, nausea, vomiting, or diarrhea. He has been tolerating oral intake well. VS stableExam with clear lungs, abdomen soft NTND, no ZEV, no neuro deficits.A llergies reviewed . Impression :Worried but well Plan:-Reas surance was given by the racecar driver. -I reached out to [facility] to request assistance in notifying the Bistro Attendant regarding the patient? s return home and the need to restart his previous services.- Red flags were discussed with the patient. Primary care, consider__ _ Dispositio n: We discussed the diagnostic uncertaint y of home visits and the risk associated with this. In this case, the patient and I felt this to be an acceptable and reasonable amount of risk given the benefit of avoiding an ED visit. We discussed the need to seek care urgently/e mergently in the setting of any new or worsening serious symptoms, particular ly weakness, fever, chills, SOB, CP, decreased PO intake, nausea, vomiting, diarrhea, dizziness or any other concerns. Health Concerns Section Related Observation LastModified by Organization Detai ls LastModified Time None Recorded Concern Status LastModified by Organization Details LastModified Time None Recorded Advance Directives Directive None Recorded Payers Encounter Date Sequence Insurance Name Policy Number Policy Pinzon Covered Member ID Pinzon Member ID Guarantor Name 07/02/2022 1 [facility] DOS PRIOR TO 2023 - DUAL ELIGIBLE (MEDICARE REPLACEMENT/ADV ANTAGE - HMO) Albert Posada [id number] Albert Aryan Posada 10/24/2023 1 [facility] - DOS ON OR AFTER 2023 - DUAL ELIGIBLE - PRISON OPTIONS AND ONE CARE (MEDICARE REPLACEMENT/ADV ANTAGE - HMO) Albert Posada [id number] Albert Posada 04/17/2024 1 [facility] - DOS ON OR AFTER 2023 - DUAL ELIGIBLE - PRISON OPTIONS AND ONE CARE (MEDICARE REPLACEMENT/ADV ANTAGE - HMO) Albert Posada [id number] Albert Posada 05/25/2024 1 [facility] - DOS ON OR AFTER 2023 - DUAL ELIGIBLE - PRISON OPTIONS AND ONE CARE (MEDICARE REPLACEMENT/ADV ANTAGE - HMO) Albert Posada [id number] Albert Posada 07/25/2024 1 [facility] DOS ON OR AFTER 2023 - DUAL ELIGIBLE - PRISON OPTIONS AND ONE CARE (MEDICARE REPLACEMENT/ADV ANTAGE - HMO) Albert Posada [id number] Albert Posada Notes Date Note Type Note [...] ..................... ..................... ..................... ..................... ..................... ..................... ............... Lock Assembler Note: 72 yo male c/o chronic neck [...] note: Hx per above Mainor Hdz MD [address] [facility],[address], [place], [phone], MAURICE AVILA 07/02/2022 21:24:47 10/24/2023 text/html CRC Nurse Triage Notes (Ophelia Nichols): Chief Complaints: Pain PMH: Diabetes, Hypertension Allergies: No Known Comments: communications attendant used. Identity/Address verified. Member reports white discharge from eyes 2 days ago. c/o burning. Not currently being treated for anything ..................... ..................... ..................... ..................... ..................... ..................... ............... Lock Assembler Note From Whitney Montalvo: Pt reporting several days of sudden onset, bilateral eye itching/tearing/swell ing with white discharge. No changes in visual acuity, no fevers. Exam shows white discharge from eyes bilaterally, redness around lids and patient continuously rubbing eyes during visit. Pt denies hx of conjunctivitis and states he has been unable to get in touch with his pcp. Consulted [facility] who will send script of ABX to pharmacy. Went over red flags and no further question or concern at this time. ..................... ..................... ..................... ..................... ..................... ..................... ............... Disposition: Milan Mansi Pratt MD [address] [facility],[address], [place], [phone], [employer] 10/24/2023 16:57:31 04/17/2024 text/html HPI: Member had [...] leg syndrome , CKD 3, CAD, Old AL, BPH, Nocturia, UI, Tremor of both hands, HIV, OA, who lives alone. ..................... ..................... ..................... ..................... ..................... ..................... ............... CRC Nurse Triage Notes (Cecilia Mann): Comments: CRC RN did not require any additional information to process this visit. Lock Assembler POC Test Results from Alfonso Nunes [facility] (1) [14:52] Na: 137 mEq/L K: [...] not have access to those records. With yarder engineer assistance on the phone medic found the patient is taking gabapentin, trazodone, metoprolol, clonazepam, docusate, amlodipine, ASA, ferrous sulfate, Jardiance, pravastatin, pramipexole. He is on no diuretics Patient denies headache, dizziness, he did strike his head on the chair but he denies loss of consciousness. He is not anticoagulated, he denies neck or back pain or acute extremity injury. He is tired Lock Assembler POC Test Results from Alfonso Nunes - [facility] Blood Glucose Measurement (16:33:07) Blood Glucose: 122 mg/dL ..................... ..................... ..................... ..................... ..................... ..................... ............... Lock Assembler Note From Alfonso Nunes: Dispatched to the [...] discomfort and that he felt great .[facility] contacted and ordered an EKG on the patient due to hypotension and bradycardia. 12 lead ekg showing sinus ivelisse with PVCs. also ordered an IV with 1L of fluid administration and BMP. 18 gauge IV unsuccessful left forearm.18 gauge IV established right forearm-normal saline IV drip over approx. 15-20 minutes total of 1L with minor improvements to blood pressure. [facility] noted the patient should be assessed in [...] transport to the hospital and refusing. [facility] ordered to withhold the metoprolol until speaking with PCP in regards to the blood pressure and heart rate issues. all times are approx. report completed by tex nunes. ..................... ..................... ..................... ..................... ..................... ..................... ............... Disposition: Fulfilled Kiana Ruiz MD [address] [facility],[address], [place], [address], [employer] [facility] [employer] [facility] 04/17/2024 20:24:58 05/25/2024 text/html CRC Nurse Triage Notes (SimoneOphelia): Reason For Request: Patient Fell this morning. Chief Complaints: Falls PMH: Diabetes, Hypertension, HIV Allergies: No Known Comments: Manager Rehab verified the member's name//address and phone number. [...] ..................... ..................... ..................... ..................... ..................... ..................... ............... Lock Assembler Note From Leticia Stinson: Pt reports fall while transferring himself from bed to chair at approximately 0530. Unwitnessed, but family member heard fall from other room and was able to get to pt quickly, denies head strike or LOC. A&ox3, vss, afebrile; skin tear to R arm clean and bandaged architectural project captain with pt endorsing pain from tear, denies dizziness, lightheadedness, other acute pain or discomfort. Physical exam atraumatic, full +ROM in all extremities, steady gait with walker which pt uses at baseline, able to transfer from chair without incident. [facility] consulted, pt and PLUNKET NURSE will monitor, seek further evaluation as needed. Red flags reviewed. ..................... ..................... ..................... ..................... ..................... ..................... ............... Disposition: Fulfilled Tate Manriquez MD [address] [facility],[address], [place], [address], [facility] - [employer] [facility] 05/25/2024 14:30:14 07/25/2024 text/html HPI: Member called in stating feeling unwell and crying, calmed down, and reports was in the hospital and was worried with his overall health decline and weakness. Member was at [facility] until 07/13/24 - Admitted on 06/25/2024for Acute respiratory failure with hypoxia (J96.01) Aspiration pneumonia (J69.0) Septic shock--after a serious fall and being found unconscious by his PLUNKET NURSE. Member asked for HV by [employer] today to check his VS and make sure he is well. ..................... ..................... ..................... ..................... ..................... ..................... ............... CRC Nurse Triage Notes (Padmini Stallings): Chief Complaints: Anxiety, Depression, Failure to Thrive PMH: Diabetes, Hypertension, HIV Comments: CRC RN DID NOT NEED FURTHER INFO ..................... ..................... ..................... ..................... ..................... ..................... ............... Lock Assembler Note From Vijay Turner: Dispatched to the [...] other food items on the counter/cabinets. [facility] consulted. Pt was advised that we would reach out to care provider to restart PLUNKET NURSE services. Red flags discussed. ALL times are approx. ..................... ..................... ..................... ..................... ..................... ..................... ............... Disposition: Milan HARLEY MD [address] [facility],[address], [place], [address], [employer] MAURICE MARK 07/25/2024 16:32:00
--- OUTSIDE RECORDS SUMMARY | 2024-10-30 12:01 | XMS_ITS | Encounter Summary ---
Author Organization [employer] Address [address] [facility] [address] [place] [address] Care Team Providers Care Copy Manager Name Role Phone Kristi Warren Primary Care Provider [phone] Reason for Visit * Reason Onset Date Comments Med Refill 10/16/2024 Encounter Details Date Type Department Care Team ([facility] st Contact Info) Description 10/16/2024 Telephone [facility] MEDICINE [address] [place], [place] [phone] Kristi Warren ANP [address] [place], [place] [phone] Med Refill Social History Tobacco Use Types Packs/Day Years [...] encounter Miscellaneous Notes * Telephone Encounter - Kandace Harris RN - 10/18/2024 12:04 PM EST Referral for medication management signed by PCP and faxed to [facility] at [phone] * Telephone Encounter - Kandace Harris RN - 10/18/2024 10:26 AM EST VNA referral for medication management placed on PCP desk for signature. Will be faxed to [facility] once signed * Telephone Encounter - Adrien Grace - 10/16/2024 9:22 AM EST Tc from Jessica with [facility] requesting pt receive VNA services for daily medication management becausehe is not taking medication regularly. If any questions you can contact Jessica at [phone]. documented in this encounter Plan of Treatment Not on file documented as of this encounter Goals Goal Patient Goal Type Associated Problems Recent Progress Patient-Stated? Author Blood Pressure < 140/90 Blood Pressure 106/61(2024 12:27 PM EST) No Mike Harris PharmD Hemoglobin A1c < 7.5 Result Component 6.3( 9:46 AM EDT) Mike Lu, PharmD documented as of this encounter Visit Diagnoses Not on filedocumented in this encounter Additional Health Concerns Assessment Noted Time PHQ-9 Depression Total Score: 12 024 1:35 PM EST documented as of this encounter Care Teams Copy Manager Relationship Specialty Start Date End Date Kristi Warren ANP [address] [place] [address] PCP - General Family Medicine 03/24/20 [facility] 08/09/24 documented as of this encounter
--- OUTSIDE RECORDS SUMMARY | 2024-10-30 12:01 | XMS_ITS | Encounter Summary ---
Author Organization [employer] Address [address] [place] [address] Care Team Providers Care Picu Nurse Name Role Phone Kristi Warren Primary Care Provider [phone] Encounter Details Date Type Department Care Team (Late st Contact Info) Description 08/12/2024 Telephone [facility] MEDICINE [address] [place], [place] [phone] Kristi Warren ANP [address] [place] [address] Social History Tobacco Use Types Packs/Day Years [...] encounter Miscellaneous Notes * Telephone Encounter - Aundrea House - 08/12/2024 2:46 PM EST Error documented in this encounter Plan of Treatment [...] documented as of this encounter Care Teams Picu Nurse Relationship Specialty Start Date End Date Kristi Warren ANP [address] [place] [id number] PCP - General Family Medicine 03/24/20 [facility] 08/09/24 documented as of this encounter
--- OUTSIDE RECORDS SUMMARY | 2024-10-30 12:01 | XMS_ITS | Encounter Summary ---
Author Organization [employer] Address [address] [facility] [address] [place] [address] Care Team Providers Care Director Of [employer] Name Role Phone Kristi Warren Primary Care Provider [phone] Reason for Visit * Reason Onset Date Comments FYI 10/07/2024 Encounter Details Date Type Department Care Team ([facility] st Contact Info) Description 10/07/2024 Telephone [facility] MEDICINE [address] [place], [place] [phone] Kristi Warren ANP [address] [place], [place] [phone] FYI Social History Tobacco Use Types Packs/Day Years [...] encounter Miscellaneous Notes * Telephone Encounter - Katiana Villarreal RN - 10/14/2024 1:53 PM EST Telephone call returned to [place]oma from [facility] [employer]. Explained below concerns. She reports already did discharge summary. They are discharging mostly on grounds of noncomplainace. Pt hasn't allowed them to enter the home since mid September. He opens the door and tells them he doesn't need VNA and sends them away. She reports that pt has gone through 3 different VNAs so they don't think it's an issue with the VNA themselves. They reports pt has bubble packs for meds and has been compliant taking them. His BG is well controlled and he is checking BG himself. They have completed diabetes training and he has done teach back and knows what BG is high and low and what to do when episode of hypo/hyperglycemia occurs. Pt has appt with PCP 10/17. Perhaps it can be discussed with him then.They stated they are willing to take him back if PCP speaks with him and gets him to let them in. They would just need a new order. Pt has been missing visits and prior to this there was deep concern about safety and medication compliance. I do not think he should be discharged from VNA services. * Telephone Encounter - Kandace Harris RN - 10/07/2024 2:43 PM EST TC from [facility] at [facility] to inform that the pt has requested to leave their services and the nurses feel that the pt is competent enough to do so. The pt was originally referred to them from [facility] due to poor medication compliance and BS readings. The pt is now fully capable of testing his BS and numbers have been well controlled. Pt is currently on Jardiance and Metoprolol. * Telephone Encounter - Desean Cruz - 10/07/2024 11:33 AM EST TC from [facility] with [facility] reports patient requesting to be discharged from services. Nurse advised that pt is compliant and able to be out on his own . documented in this encounter Plan of Treatment Not on file documented as of this encounter Goals Goal Patient Goal Type Associated Problems Recent Progress Patient-Stated? Author Blood Pressure < 140/90 Blood Pressure 106/61(2024 12:27 PM EST) No Mike Harris, PharmLourdes Hemoglobin A1c < 7.5 Result Component 6.3( 9:46 AM EDT) No Mike Harris PharmD documented as of this encounter Visit Diagnoses Not on filedocumented in this encounter Additional Health Concerns Assessment Noted Time PHQ-9 Depression Total Score: 12 024 1:35 PM EST documented as of this encounter Care Teams Director Of [employer] Relationship Specialty Start Date End Date Kristi Warren ANP [address] [place] [address] PCP - General Family Medicine 03/24/20 [facility] 08/09/24 documented as of this encounter
--- OUTSIDE RECORDS SUMMARY | 2024-10-30 12:01 | XMS_ITS | Clinical Summary ---
Author Organization [employer] Address [address] [place] [address] Care Team Providers Care Manufacturers Representative Name Role Phone Kristi Warren Primary Care Provider [phone] Allergies No known active allergies Medications * This document contains information received from the source organization and may not represent a complete record from that organization. FeroSul 325 (65 Fe) MG tablet TAKE 1 TABLET BY MOUTH TWICE DAILY IN THE MORNING AND AT BEDTIME 3 Active Testosterone 20.25 MG/ACT (1.62%) gel Apply 3 pumps topically to upper arm daily as directed. 3 Active amLODIPine (Norvasc) 5 MG tablet Take 5 mg by mouth in the morning. 2 Active Blood Pressure kitIndications:Pr imary hypertension 1 kit in the morning. 1 kit 3 Active glucose blood (FREESTYLE LITE) test strip test blood sugars twice a day 100 each 11 3 Active Skin Protectants, Misc. (Minerin Creme) cream APPLY TOPICALLY ALL OVER BODY TWICE DAILY AFTER BATH 454 g 5 3 Active Additional Information Patient not taking.Reported on 09/25/2023 calcitriol (Rocaltrol) 0.25 MCG capsule TAKE 1 CAPSULE BY MOUTH IN THE MORNING ON MONDAY, MONDAY, AND Monday 3 Active traMADol (Ultram) 50 MG tablet TAKE 1 TABLET BY MOUTH THREE TIMES DAILY NEEDED FOR PAIN 3 Active glucose blood (FreeStyle Precision Wesley Test) test stripIndications: Type 2 diabetes mellitus with stage 3 chronic kidney disease, with long-term current use of insulin, unspecified whether stage 3a or 3b CKD (CMS/[facility]) Use to test blood sugar 5 times daily 100 each 12 4 025 Active Continuous Glucose Sensor (FreeStyle Sherley 2 Sensor) miscIndications:T ype 2 diabetes mellitus with stage 3 chronic kidney disease, with long-term current use of insulin, unspecified whether stage 3a or 3b CKD ([facility]) USE DIRECTED CHANGE EVERY 14 DAYS 2 each 3 4 Active clotrimazole (Lotrimin) 1 % creamIndications: Recurrent tinea pedis APPLY TOPICALLY TWICE DAILY 30 g 2 4 Active Aspirin Low Dose 81 MG EC tabletIndications :History of non-ST elevation myocardial infarction (NSTEMI) TAKE 1 TABLET BY MOUTH AT BEDTIME 90 tablet 1 4 Active miconazole (Micatin) 2 % cream Apply between all toes twice daily 141 g 5 4 025 Active empagliflozin (Jardiance) 25 MGIndications:Typ e 2 diabetes mellitus with stage 3 chronic kidney disease, with long-term current use of insulin, unspecified whether stage 3a or 3b CKD ([facility]) TAKE 1 TABLET BY MOUTH EVERY MORNING 90 tablet 1 4 Active TRUEplus Lancets 33G miscIndications:T ype 2 diabetes mellitus without complications ([facility]) TEST BLOOD SUGAR 2-3 TIMES PER DAY 100 each 5 4 Active atorvastatin (Lipitor) 40 MG tablet Take 1 tablet (40 mg) by mouth Once per day. 90 tablet 3 4 025 Active acetaminophen (Tylenol Extra Strength) 500 MG tablet Take 2 tablets (1,000 mg) by mouth every 8 (eight) hours if needed for mild pain or moderate pain. 180 tablet 3 4 Active Continuous Glucose Wharf Builder (FreeStyle Sherley 2 [place]) deviceIndications :Type 2 diabetes mellitus with stage 3 chronic kidney disease, with long-term current use of insulin, unspecified whether stage 3a or 3b CKD ([facility]) USE DIRECTED SCAN EVERY 8 HOURS 1 each 4 Active Blood Glucose Monitoring Suppl (FreeStyle [place] Lite) w/Device kit USE DIRECTED TO TEST BLOOD SUGAR THREE TIMES DAILY 1 kit 4 Active traZODone (Desyrel) 100 MG tabletIndications :Insomnia, unspecified type Take 1.5 tablets (150 mg) by mouth at bedtime. 135 tablet 4 Active naloxone (Narcan) 4 mg/0.1 mL nasal sprayIndications: Misuse of medication,group home (current) use of opiate analgesic Administer 1 spray (4 mg) into affected nostril(s) if needed for opioid reversal. May repeat every 2-3 minutes if needed, alternating nostrils, until medical assistance becomes available. 2 each 4 025 Active metoprolol succinate XL (Toprol XL) 25 MG 24 hr tabletIndications :Essential hypertension Take 1 tablet (25 mg) by mouth Once per day. Do not crush or chew. 30 tablet 11 4 025 Active Active Problems Problem Noted Date Diagnosed Date Moderate recurrent major depression 08/22/2024 Assessment & Plan (08/22/2024 2:04 PM EST): PROGRESS NOTE: ID: Albert is a 74 y.o. don't know-identified cis-male with services including OP Psychotherapy No previous hx of MH dx or sx who presents for Anxiety and Depression During IBH Consult Albert presenting with irritable mood, sense of isolation/loneliness , change in appetite or weight reduce appetite, changes in sleep difficulty falling asleep and difficulty staying asleep , fatigue/loss of energy, difficulty concentrating and excessive worry/anxiety and anxiety/worry associated to restlessness and/or feeling keyed-up/On edge , easily fatigued , difficulty concentrating and/or mind going blank , irritability, and sleep disturbance difficulty falling asleep and difficulty staying asleep ; for a period of 18+ mo, for most or all symptoms in the context of loneliness, lack of outpatient services, lack of education about medication . PLAN: New/Additional Services needed PCP management Off-site services for Behavioral Health Integration Plan External OP therapy referral Patient Self Plan Patient to utilize skills provided in intervention , Patient to reach out to [facility] team as needed, Comply with medication , and Patient to engage in OP therapy Mild anxiety 08/22/2024 History of non-ST elevation myocardial infarctio n (NSTEMI) 08/06/2024 Overview (08/06/2024): (from coronary hypoperfusion during cardiac arrest after elective lumbar injection 09/28/18) Paroxysmal atrial fibrillation 08/06/2024 Assessment & Plan (08/06/2024 3:33 PM EDT): - patient has Holter monitor in June 2024 which was ordered by his supervisor farm equipment maintenance. Results did not show atrial fibrillation. - the patient was seen by a supervisor farm equipment maintenance while int [facility] and telemetry tracing showed atrial fibrillation per supervisor farm equipment maintenance. - the patient was started on eliquis but it was not continued after he was discharged from the [facility] for unclear reasons. - due to increase risk of fall, will consult with supervisor farm equipment maintenance. The patient is taking aspirin and cilostazol for PAD. Will consult with supervisor farm equipment maintenance. Metabolic encephalopathy 08/06/2024 Assessment & Plan (08/06/2024 3:32 PM EDT): - multifactorial - patient will benefit from reviewing his medications with PCP, pharmacist, and specialists. - will schedule appointment with PCP, and will contact specialist. - patient agreed to take acetaminophen before taking tramadol. - will not continue Seroquel at this time. Will consult with PCP regarding an appropriate trazodone dose. - will consider reducing gabapentin dose if possible. Cervical stenosis of spine 08/22/2023 Abnormal electromyogram (EMG) 05/15/2023 At risk for polypharmacy 05/15/2023 Carpal tunnel syndrome, right 05/15/2023 Muscle spasms of neck 05/15/2023 Cubital tunnel syndrome on right 05/15/2023 Diabetic peripheral neuropathy 05/15/2023 Encounter for medication monitoring 05/15/2023 Hypogonadism in male 05/15/2023 Neck pain 05/15/2023 Painful arc syndrome of right shoulder Personal history of nicotine dependence 05/15/20 23 Primary osteoarthritis, right hand 05/15/2023 Right knee pain 05/15/2023 Acquired hammer toe of right foot 11/04/2022 Class 1 obesity 11/04/2022 Hyperparathyroidism due to renal insufficiency 0 11/04/2022 Vitamin D deficiency 11/04/2022 Renal osteodystrophy 02/01/2021 Diabetic nephropathy associa reginaldo with type 2 diabetes mellitus 09/24/2019 IgA nephropathy 09/24/2019 Bradycardic cardiac arrest 10/04/2018 Hemorrhoids 08/29/2017 Restless legs 08/01/2017 BPH without urinary obstruction 07/04/2017 Edentulous 07/04/2017 Erectile dysfunction associa reginaldo with type 2 diabetes mellitus ([facility]/HCC) 07/04/2017 Failed back surgical syndrome 07/04/2017 Hearing loss 07/04/2017 Hyperlipidemia 07/04/2017 Assessment & Plan (08/06/2024 10:40 AM EDT): - change pravastatin to atorvastatin Essential hypertension 07/04/2017 Assessment & Plan (08/06/2024 3:34 PM EDT): - patient's BP was on the lower side - currently taking amlodipine 10 mg - metoprolol dose was decreased during hospitalization, however the patient is still prescribed 50 mg metoprolol succinate daily. He has not been taking metoprolol daily due to low BP. - will consult with supervisor farm equipment maintenance for optimal BP management plan. Mood disorder 07/04/2017 Onychomycosis 07/04/2017 Osteoarthritis of right knee 07/04/2017 Type 2 diabetes mellitus with unspecified compli cations 07/04/2017 Overview (05/25/2023): nephropathy Assessment & Plan (08/06/2024 10:41 AM EDT): - A1C 6.3% on 08/06/24 - previously on basal insulin - no longer on lantus - continue jardiance Tobacco dependence syndrome 07/04/2017 Stage 3 chronic kidney disease 07/04/2017 Overview (05/25/2023): Update for Diagnosis Load Retinopathy 05/29/2012 Encounters * This document contains information received from the source organization and may not represent a complete record from that organization. Date Type Department Care Team Description 10/17/2024 1:30 PM EST Office Visit [address] [address] Kristi Warren ANP 10/17/2024 Travel 10/16/2024 Telephone [facility] [place] [address] Kristi Warren ANP Med Refill 10/07/2024 Telephone [facility] [place] [address] Kristi Warren ANP FYI 09/28/2024 Telephone [facility] [place] [address] Katiana Villarreal, RN Status Check 09/27/2024 Orders Only [facility] [place] [address] Kristi Warren ANP 09/25/2024 Orders Only GENERIC EXTERNAL DATA DEPARTMENT Provider, Generic External Data 09/16/2024 Telephone [facility] [place] [address] Kristi Warren ANP Nurse Triage 09/02/2024 Patient Outreach [facility] [address] Kristi Warren ANP Pre-visit Planning (Pre-visit planning - LVM ) 08/23/2024 Telephone [facility] [place] [address] Kristi Warren ANP Medication Question 08/16/2024 Orders Only [facility] [place] [address] Kristi Warren ANP Misuse of medication (Primary Dx); group home (current) use of opiate analgesic 08/16/2024 Travel 08/15/2024 Telephone [facility] [place] [address] Kristi Warren ANP 08/15/2024 Telephone [facility] [place] [address] Kristi Warren ANP Medication Question 08/12/2024 Orders Only [facility] [place] [address] Kristi Warren ANP Insomnia, unspecified type 08/12/2024 Telephone [facility] [place] [address] Kristi Warren ANP 08/12/2024 Telephone [facility] [place] [address] Kristi Warren ANP Medication Question 08/09/2024 Telephone [facility] [address] [place] [address] Kandace Harris RN NTTS Triage F/U 08/07/2024 Orders Only [facility] [address] [place] [address] Betzaida Hodge MD History of tobacco use (Primary Dx); Abnormal chest x-ray; History of rib fracture 08/07/2024 Refill [facility] [address] [place] [address] Kristi Warren ANP Type 2 diabetes mellitus with stage 3 chronic kidney disease, with long-term current use of insulin, unspecified whether stage 3a or 3b CKD (CMS/HCC) 08/06/2024 9:30 AM EDT Office Visit [facility] [address] [place] [address] Betzaida Hodge MD Essential hypertension (Primary Dx); Bradycardic cardiac arrest (CMS/HCC); Paroxysmal atrial fibrillation (CMS/HCC); Stage 3 chronic kidney disease, unspecified whether stage 3a or 3b CKD (CMS/HCC); Septic shock (CMS/HCC); Pneumonia of both lungs due to infectious organism, unspecified part of lung; Metabolic encephalopathy; Type 2 diabetes mellitus with unspecified complications (CMS/HCC); Encounter for immunization; Mixed hyperlipidemia 08/06/2024 Travel 07/31/2024 Telephone [facility] [address] [place], [place] [phone] Kristi Warren ANP Medication Question from Last 3 Months Immunizations Name Administration Dates Next Due Hep A, Adult 08/06/2024 Hep B, adult 08/16/2024 Influenza High-dose Quadriva lent Preservative Free 07/23/2021,06/19/2020 Influenza injectable quadriv alent IIV4 with preservative 08/23/2016 Influenza injectable quadriv alent preservative free 09/28/2018 Influenza, High Dose Seasona l, Preservative Free 08/06/2024,06/10/2020,07/04/2017,10/28 Influenza, IIV3, injectable 08/26/2014 Influenza, Split (incl. mackenzie fied surface antigen) 07/03/2015,02/02/2015,04/24/2014,07/22,09/13/2012 Influenza, seasonal, injecta ble, preservative free 07/09/2020 Influenza, trivalent, adjuvanted 07/03/2019 Pfizer Covid-19 Vaccine 12+ 08/06/2024,1 ,11/20/2020,11/19 Pneumococcal Conjugate PCV 13 07/12/2017, 016,12/27/2015 Pneumococcal Conjugate PCV 20 08/16/2024 Pneumococcal Polysaccharide PPSV23 09/28,07/04/2017,03/07/2012,09/11 RSV Bivalent 09/19/2023 TD (adult), 2 Lf tetanus tox oid, preservative free, adsorbed 04/30/2024,04/22/2008 Tdap 07/22/2013,04/23/2008 Zoster, Recombinant 04/14/2020,11/29/2019 Zoster, live 07/04/2017 Social History Tobacco Use Types Packs/Day Years [...] Don't know 08/08/2022 10 :19 AM EDT Last Filed Vital Signs Vital Sign Reading Time Taken Comments Blood Pressure 106/61 10/17/2024 12:27 PM EST Pulse 62 10/17/2024 12:27 PM EST Temperature 36.4 ??C (97.6 ??F) 10/17/2024 12:[address] Respiratory Rate 14 10/17/2024 12:27 PM EST Oxygen Saturation 93% 10/17/2024 12:27 PM EST Inhaled Oxygen Concentration - - Weight 74.4 kg (164 lb) 10/17/2024 12:27 PM EST Height 167.6 cm (5' 6 ) 08/06/2024 9:45 AM EDT Body Mass Index 26.47 08/06/2024 9:45 AM EDT Plan of Treatment Health Maintenance Due Date Last Done Comments CT Colonography 1950 FIT DNA/Cologuard 1950 FIT 1950 FOBT 1950 Sigmoidoscopy 1950 Diabetes: Foot Exam 01/06/1960 Eye Exam 01/06/1960 Alcohol/Substance Use Screening 1962 Hepatitis C Screening 01/06/1968 Colonoscopy 07/26/2020 07/26/2010 Colorectal Cancer Screening 07/26/2020 SDOH Screening 02/29/2024 02/28/2023 Lipid Panel 08/22/2024 08/22/2023, 08/18/2021 Hepatitis B Vaccines (2 of 3 - 19+ 3-dose series) 09/13/2024 08/16/2024 Diabetes: Hemoglobin A1C 11/06/2024 024, 04/30/2024, 01/16/2024, Additional history exists Hepatitis A Vaccines (2 of 2 - Risk 2-dose series) 02/04/2025 08/06/2024 Depression Monitoring (PHQ-9) 02/19/2025 08/22/2024, 08/22/2024 Depression Screening 08/22/2025 08/22/2024, 08/22/20 Tobacco Screening 10/17/2025 10/17/2024 DTaP/Tdap/Td Vaccines (4 - Td or Tdap) 04/30/2034 04/30/2024, 07/22/2013, 04/23/2008, Additional history exists Zoster Vaccines Completed 04/14/2020, 11/10, 07/04/2017 RSV Patients and Patients Aged 60 years or older Completed 09/19/2023 COVID-19 Vaccine Completed 08/06/2024, 12/2022, 07/14/2022, Additional history exists Influenza Vaccine Completed 08/06/2024, , 07/09/2020, Additional history exists Pneumococcal Vaccine: 65+ Years Completed 08/16/2024, 09/28/2018, 07/12/2017, Additional history exists HIB Vaccines Aged Out No longer eligi ble based on patient's age to complete this topic HPV Vaccines Aged Out No longer eligi ble based on patient's age to complete this topic IPV Vaccines Aged Out No longer eligi ble based on patient's age to complete this topic Meningococcal Vaccine Aged Out No modesta lorrie eligible based on patient's age to complete this topic RSV under 20 months Aged Out No longe r eligible based on patient's age to complete this topic Rotavirus Vaccines Aged Out No longer eligible based on patient's age to complete this topic Goals Goal Patient Goal Type Associated Problems Recent Progress Patient-Stated? Author Blood Pressure < 140/90 Blood Pressure 106/61(2024 12:27 PM EST) No Mike Harris PharmD Hemoglobin A1c < 7.5 Result Component 6.3( 9:46 AM EDT) No Mike Harris PharmD Procedures Procedure Name Priority Date/Time Associated Diagnosis Comments TESTOSTERONE, TOTAL, MALES (ADULT), IA Routine 09/25/2024 11:24 AM EST PSA, TOTAL Routine 09/25/2024 11:24 AM EST CBC Routine 09/25/2024 11:24 AM EST XR CHEST 2 VIEWS Routine 08/06/2024 11:2 4 AM EDT Pneumonia of both lungs due to infectious organism, unspecified part of lung POCT GLYCOSYLATED HEMOGLOBIN (HGB A1C) Routine 08/06/2024 9:46 AM EDT Type 2 diabetes mellitus with unspecified complications (CMS/HCC) POCT GLUCOSE Routine 08/06/2024 9:46 AM EDT Type 2 diabetes mellitus with unspecified complications (CMS/HCC) LIPID PANEL, STANDARD Routine 08/22/2023 10:33 AM EST HM COLONOSCOPY Routine 07/26/2010 from Last 3 Months or Most Recently Relevant to Health Maintenance Results * (ABNORMAL) CBC (09/25/2024 11:24 AM EST) White Blood Count 8.4 4.8 - 10.8 X10*3/uL [facility] Red Blood Count 4.34(L) 4.60 - 5.80 X10*6/uL [facility] Hemoglobin 14.7 14.0 - 18.0 g/dl [facility] Hematocrit 43.5 42.0 - 52.0 % [facility] Mean Corpuscular Volume 100.2(H) 80.0 - 98.0 fL [facility] Mean Corpuscular Hemoglobin 33.9(H) 27.0 - 33.0 pg [facility] Mean Corpuscular HGB Conc 33.8 31.0 - 36.0 g/dl [facility] Red Cell Distribution Width 14.5 11.0 - 16.0 % [facility] Platelet Count 243 160 - 400 X10*3/uL [facility] Mean Platelet Volume 9.6 9.4 - 12.4 fL [facility] NRBC Pct Auto 0.0 0.0 - 0.2 /100WBC [facility] NRBC Abs Auto 0.000 0.0 - 0.012 X10*3/uL [facility] 09/25/2024 11:2 4 AM EST 09/25/2024 11:24 AM EST us Generic External Data Provider LAB BLOOD ORDERAB LES Final Result Performing Organization Address [facility] Co de Phone Number [facility] [address] [place] [phone] * (ABNORMAL) Testosterone, Total, males (Adult), IA (09/25/2024 11:24 AM EST) Pathologist [facility] Testosterone, Total 215(A) 250 - 1100 ng/dL [facility] Comment:Men with clinically significant hypogonadalsymptoms and testosterone values repeatedly inthe range of the 200-300 ng/dL or less, maybenefit from testosterone treatment afteradequate risk and benefits counseling.For additional information, please refer [email or web address](This link is being provided for informational/educational purposes only.)This test was developed and its analytical performancecharacteristics have been determined by [employer] [place], [place]. It hasnot been cleared or approved by the U.S. Food and DrugAdministration. This assay has been validated pursuantto the CLIA regulations and is used for clinicalpurposes.THIS TEST WAS PERFORMED AT:[employer] [place] [address]KAXILEGDAVONTE MCCURDY MD,PHD 09/25/2024 11:2 4 AM EST 09/25/2024 11:24 AM EST us Generic External Data Provider LAB BLOOD ORDERAB LES Final Result Performing Organization Address City/[facility]/ZIP Co de Phone Number [facility] [address] [place] [address] [phone] * PSA,Total (09/25/2024 11:24 AM EST) Prostate Specific Antigen 0.51 <0.05 - 4.0 ng/mL [facility] Comment:PSA methodology: Klaus Jefferson i ChemiluminescentMicroparticle Immunoassay (CMIA) 09/25/2024 11:2 4 AM EST 09/25/2024 11:24 AM EST us Generic External Data Provider LAB BLOOD ORDERAB LES Final Result [facility] [address] [place] [address] [phone] * XR Chest 2 Views (08/06/2024 11:24 AM EDT) Anatomical Region Laterality Modality Chest Radiographic Annie ging 08/06/2024 11:2 4 AM EDT Narrative 08/06/2024 12:25 PM EDT ?[facility] ?[address] ?[place] [address] ?XRay Report ? Signed ? Patient: Albert Baeza ?MR#: [id number] ? : 1950 ?Acct:[id number] ? Age/Sex: 74 / M ?ADM Date: 08/06/24 ? Loc: HO.HHCX ? Attending Dr: Betzaida Hodge MD ? Ordering Physician: Betzaida Hodge MD ?? Date of Service: 08/06/24 ?? Procedure(s): XR chest 2V ?? Accession Number(s): [id number] ? cc: Betzaida Hodge MD ? EXAMINATION: ?? XR CHEST ? CLINICAL INFORMATION: ?? Follow-up x-ray for aspiration pneumonia in June or states ?? pneumonia both lungs, follow-up x-ray. ? COMPARISON: ?? 07/21/2024. ? TECHNIQUE: ?? 2 views of the chest were obtained. ? FINDINGS: ?? There is no gross pneumothorax. Lung volumes are low. ? Heart size is normal. ? Streaky opacities at the right lung base with volume loss, worsening. ? Minimal degenerative changes of the thoracic spine. ? XR/XR chest 2V ?? IMPRESSION: ?? Streaky opacities at the right lung base with volume loss worsening. ? This study was presented today August 06, 2024 for interpretation. ?? Stat results provided at this time as requested by referring provider. ? Electronically signed by: ??Mirela Jones MD ??08/06/2024 12:22 PM EDT ? Dictated By: ?Mirela Jones MD ? Signed By: ?<Electronically signed by Mirela Jones MD in OV> ? 08/06/24 1222 ? DD/ 1124 ? TD/TT: 08/06/24 1140 ? Lacquer Mixer: ? Procedure Note Donotuseinterpreter, Image - 08/06/2024 [place] [address] XRay Report Signed Patient: Albert BaezaMR#: [id number] : 1950Acct:[id number] Age/Sex: 74 / MADM Date: 08/06/24 Loc: HO.HHCX Attending Dr: Betzaida Hodge MD Ordering Physician: Betzaida Hodge MD Date of Service: 08/06/24 Procedure(s): XR chest 2V Accession Number(s): [id number] cc: Betzaida Hodge MD EXAMINATION: XR CHEST CLINICAL INFORMATION: Follow-up x-ray for aspiration pneumonia in June or states pneumonia both lungs, follow-up x-ray. COMPARISON: 07/21/2024. TECHNIQUE: 2 views of the chest were obtained. FINDINGS: There is no gross pneumothorax. Lung volumes are low. Heart size is normal. Streaky opacities at the right lung base with volume loss, worsening. Minimal degenerative changes of the thoracic spine. XR/XR chest 2V IMPRESSION: Streaky opacities at the right lung base with volume loss worsening. This study was presented today August 06, 2024 for interpretation. Stat results provided at this time as requested by referring provider. Electronically signed by: Mirela Jones MD 08/06/2024 12:22 PM EDT RP Dictated By: Mirela Jones MD Signed By: <Electronically signed by Mirela Jones MD in OV> 08/06/24 1222 DD/ 1124 TD/TT: 08/06/24 1140 Lacquer Mixer: Betzaida Hodge MD IMG XR PROCEDURES Edited Result - Final * (ABNORMAL) POCT glycosylated hemoglobin (Hgb A1c) (08/06/2024 9:46 AM EDT) Hemoglobin A1C 6.3(A) 4.0 - 6.0 % QC Media Lot # [id number] Lot# Expiration Date Blood Capillary blood specimen / Unknown 08/06/2024 9:46 AM EDT Betzaida Hodge MD POINT OF CARE TEST ENTER/EDIT OR DERABLES Final Result * POCT glucose manually resulted (08/06/2024 9:46 AM EDT) Glucose Blood, POC 180 60 - 200 mg/dL QC Media Lot # [id number] Lot# Expiration Date , Blood Capillary blood specimen / Unknown 08/06/2024 9:46 AM EDT Betzaida Hodge MD POINT OF CARE TEST ENTER/EDIT OR DERABLES Final Result * (ABNORMAL) Lipid Panel, Standard (08/22/2023 10:33 AM EST) Triglycerides 106 <150 mg/dL [facility] Comment:Desirable Triglyceri de: less than 150 mg/dLBorderline High Triglyceride 150-199 mg/dLHigh Triglyceride: 200-499 mg/dLVery High Triglyceride: greater than or equal to 5OO mg/dL Cholesterol 127 <200 mg/dL [facility] Comment:Desirable Cholestero l: less than 200 mg/dLBorderline High Cholesterol: 200-239 mg/dLHigh Cholesterol: greater than 239 mg/dL LDL Cholesterol Calculated 67 <100 mg/dL [facility] Comment:Desirable LDL: less than 100 mg/dLNear Optimal/Above Optimal LDL: 110- 129 mg/dLBorderline High LDL: 130-159 mg/dLHigh LDL: 160-189 mg/dLVery High LDL: greater than or equal to 190 mg/dL HDL Cholesterol 39(L) >40 mg/dL [facility] Comment:Desirable HDL: great er than 40 mg/dL Note: This HDL assay may give artificially low results in patients with liver disease. 08/22/2023 10:3 3 AM EST 08/22/2023 10:33 AM EST us Generic External Data Provider LAB BLOOD ORDERAB LES Final Result [facility] [address] [place] [address] [phone] * Colonoscopy (07/26/2010) Colonoscopy Normal Normal Historical Provider HEALTH MAINTENANCE Final Result from Last 3 Months or Most Recently Relevant to Health Maintenance Insurance [facility] Care Teams Manufacturers Representative Relationship Specialty Start Date End Date Kristi Warren ANP [address] [place] [address] PCP - General Family Medicine 03/24/20 [facility] 08/09/24
--- OUTSIDE RECORDS SUMMARY | 2024-10-30 12:01 | XMS_ITS | Encounter Summary ---
Author Organization [employer] Address [address] [facility]t [place] [address] Care Team Providers Care Ore Smelter Name Role Phone Kristi Warren Primary Care Provider [phone] Encounter Details Date Type Department Care Team (Latest Contact Info) Description 10/17/2024 Travel Social History Tobacco Use Types Packs/Day Years [...] AM EDT documented as of this encounter Plan of Treatment Not on [...] documented as of this encounter Care Teams Ore Smelter Relationship Specialty Start Date End Date Kristi Warren ANP [address] [place] [id number] PCP - General Family Medicine 03/24/20 [facility] 08/09/24 documented as of this encounter
--- OUTSIDE RECORDS SUMMARY | 2024-10-30 12:01 | XMS_ITS | Encounter Summary ---
Author Organization [employer] Address [address] [facility] 7t [place] [address] Care Team Providers Care Rotary Bar Operator Name Role Phone Kristi Warren Primary Care Provider [phone] Reason for Visit * Reason Onset Date Comments Medication Question 07/15/2024 Encounter Details Date Type Department Care Team ([facility] st Contact Info) Description 07/15/2024 Telephone [facility] MEDICINE [address] [place], [place] [phone] Kristi Warren ANP [address] [place], [place] [phone] Medication Question Social History Tobacco Use Types Packs/Day Years [...] is your housing situation today? I have orseanna hannah 05/24/[address] you [...] Telephone Encounter - Kandace Harris RN - 07/15/2024 11:26 AM EDT TC placed to to pt MERYL Blum regarding pt medications. The pt was recently discharged from [facility] after being in the hospital for a pneumothorax. Viktoria is concerned with the medications that the pt was discharged with and is apprehensive in regards to giving them to the pt. RN spoke with KASSIDY Song, who is in agreement that the pt can be scheduled for a [place] appt. This will be forwarded to Krysten for scheduling. * Telephone Encounter - Trace Castaneda - 07/15/2024 8:46 AM EDT Tc from Viktoria from [facility] requesting a call back to compare medications and to see if the provider would like the patient to continue the medication documented in this encounter Plan of Treatment Not on file documented as of this encounter Goals Goal Patient Goal Type Associated Problems Recent Progress Patient-Stated? Author Blood Pressure < 140/90 Blood Pressure 106/61(2024 12:27 PM EST) No Mike Harris, PharmLoureds Hemoglobin A1c < 7.5 Result Component 6.3( 9:46 AM EDT) No Mike Harris, PharmD documented as of this encounter Visit Diagnoses Not on filedocumented in this encounter Additional Health Concerns Assessment Noted Time PHQ-9 Depression Total Score: 13 024 1:24 PM EDT documented as of this encounter Care Teams Rotary Bar Operator Relationship Specialty Start Date End Date Kristi Warren ANP [address] [place] [address] PCP - General Family Medicine 03/24/20 [facility] 08/09/24 documented as of this encounter
--- OUTSIDE RECORDS SUMMARY | 2024-10-30 12:02 | XMS_ITS | Encounter Summary ---
Author Organization [facility], Address [address] [place] [address] Phone Care Team Providers Care Oil Program Compliance Specialist Name Role Phone Kristi Warren EXPLOSIVE OPERATOR FUSE Primary Care Provider Unavailnathalie e Encounter Details Date Type Department Care Team (Late st Contact Info) Description 07/30/2024 Documentation Only [facility], - Angel Caicedo [address] [place] [phone] Iona Salas [address] [place] [address] Social History Tobacco Use Types Packs/Day Years Used Date Smoking Tobacco: Every Day Cigarettes Alcohol Use Standard Drinks/Week Comments No 0 (1 standard drink = 0.6 oz pur e alcohol) Sex and Gender Information Value Date Recorded Sex Assigned at Not on file Legal Sex Male 4:35 PM EST Gender Identity Not on file Sexual Orientation Not on file documented as of this encounter Plan of Treatment Not on file documented as of this encounter Visit Diagnoses Not on filedocumented in this encounter Care Teams Oil Program Compliance Specialist Relationship Specialty Start Date End Date Kristi Warren NP PCP - General Nurse Practitioner 02/02/21 documented as of this encounter
--- OUTSIDE RECORDS SUMMARY | 2024-10-30 12:02 | XMS_ITS | Encounter Summary ---
Author Organization [employer] Address [address] [facility] 7t [place] [address] Care Team Providers Care Veterinary Laboratory Diagnostician Name Role Phone Kristi Warren ANP Primary Care Provider [phone] Reason for Visit * Reason Onset Date Comments Nurse Triage 04/18/2023 Encounter Details Date Type Department Care Team ([facility] st Contact Info) Description 04/18/2023 Telephone [facility] MEDICINE [address] [place] [address] Kristi Warren ANP [address] [place] [address] Nurse Triage Social History Tobacco Use Types Packs/Day Years [...] encounter Miscellaneous Notes * Telephone Encounter - Leona Marie RN - 04/18/2023 3:57 PM EDT Called pt. Via [employer] pricing specialist [phone] Nadja. Pt. States that he had an appt. With Provider Kelvin today and he was feeling dizzy after his appt. While driving and had to lime puller. Pt. States hehad some blood work done and a check up. Pt. States that he is currently home and safe but he had called when he was driving home because he got worried about his dizziness. I advised pt. That I am glad that he pulled over during his episode and how is he feeling at present. Pt. States he is feeling better because he is eating some food right now. He states I am better now and I had very good care today by the Dr. . Pt. Wants to double check with PCP to see if any medication was sent to Pharmacy for his dizziness . Will send note to PCP and have team nurse call pt. Back. Advised pt. To rest and drink some water for hydration. Pt. States he is fine now and that he may have gotten more dizzy because he had his blood drawn but, he's fine now . Protocol Used: Dizziness (Adult) Protocol-Based Disposition: See in Office or Video Visit Today Positive Triage Question: * Moderate dizziness (e.g., interferes with normal activities) (Exception: dizziness caused by heatexposure, sudden standing, or poor fluid intake) * All higher-acuity triage questions were negative Care Advice Discussed: * Drink Fluids * Lie Down and Rest * Cool Off * Prevention * Sit Up Slowly Before Standing * Drink Fluids * Lie Down and Rest * Cool Off * Prevention * Reassurance and Education - Dizziness From Heat Exposure * Drink Liquids * Cool Off * Lie Down and Rest * Prevention * Reasons To Call Back * Telephone Encounter - Monik Kramer - 04/18/2023 3:53 PM EDT Symptom: Dizziness Outcome: Schedule an urgent appointment (within 4 hours) or talk to a nurse or provider soon Reason: Getting worse The caller accepted this outcome Please contact pt at [phone] (Guamanian speaker) documented in this encounter Plan of Treatment Not on file documented as of this encounter Visit Diagnoses Not on filedocumented in this encounter Care Teams Veterinary Laboratory Diagnostician Relationship Specialty Start Date End Date Kristi Warren ANP [address] [place] [address] PCP - General Family Medicine 03/24/20 [facility] 08/09/24 documented as of this encounter
--- OUTSIDE RECORDS SUMMARY | 2024-10-30 12:02 | XMS_ITS | Encounter Summary ---
Author Organization [employer] Address [address] [facility] 7t [place] [address] Care Team Providers Care Thermodynamic Physicist Name Role Phone Kristi Warren ANP Primary Care Provider [phone] Reason for Visit * Reason Onset Date Comments Nurse Triage 04/06/2023 Encounter Details Date Type Department Care Team ([facility] st Contact Info) Description 04/06/[address] [facility] MEDICINE [address] [place] [address] Kristi Warren ANP [address] [place] [address] Nurse Triage Social History Tobacco Use Types [...] suspected to have Coronavirus/COVID-19? No / Unsure 04/04/2023 3:15 PM EDT documented as of this encounter Miscellaneous Notes * Telephone Encounter - Alana Giles - 04/06/2023 2:10 PM EDT Symptoms: Loss of Appetite, Depression Outcome: Schedule an urgent appointment (within 4 hours) or talk to a nurse or provider soon Reason: Getting worse The caller accepted this outcome Patient speaks mosotho documented in this encounter Plan of Treatment Not on file documented as of this encounter Visit Diagnoses Not on filedocumented in this encounter Care Teams Thermodynamic Physicist Relationship Specialty Start Date End Date Kristi Warren ANP [address] [place] [address] PCP - General Family Medicine 03/24/20 [facility] 08/09/24 documented as of this encounter
--- OUTSIDE RECORDS SUMMARY | 2024-10-30 12:02 | XMS_ITS | Encounter Summary ---
Author Organization [employer] Address [address] [facility] 7t [place] [address] Care Team Providers Care Flower Arranger Name Role Phone Kristi Warren ANP Primary Care Provider [phone] Reason for Visit * Reason Onset Date Comments Med Refill 04/12/2023 Encounter Details Date Type Department Care Team ([facility] st Contact Info) Description 04/12/2023 Telephone [facility] MEDICINE [address] [place], [place] [phone] Kristi Warren ANP [address] [place] [address] Med Refill Social History Tobacco Use Types [...] encounter Miscellaneous Notes * Telephone Encounter - Kirstie Daniels RN - 04/12/2023 9:28 AM EDT Medication not rxd by PCP * Telephone Encounter - Monik Williams - 04/12/2023 9:21 AM EDT Tc from pt requesting medication refill on traMADoL 50 mg tablet documented in this encounter Plan of Treatment Not on file documented as of this encounter Visit Diagnoses Not on filedocumented in this encounter Care Teams Flower Arranger Relationship Specialty Start Date End Date Kristi Warren ANP [address] [place] [address] PCP - General Family Medicine 03/24/20 [facility] 08/09/24 documented as of this encounter
--- OUTSIDE RECORDS SUMMARY | 2024-10-30 12:02 | XMS_ITS | Encounter Summary ---
Author Organization [employer] Address [address] [facility] 7t [place] [address] Care Team Providers Care Operations Label Clerk Name Role Phone Kristi Warren Primary Care Provider [phone] Reason for Visit * Reason Onset Date Comments Referral 03/29/2023 Encounter Details Date Type Department Care Team ([facility] st Contact Info) Description 03/29/2023 Telephone [facility] MEDICINE [address] [place], [place] [phone] Kristi Warren ANP [address] [place] [address] Referral Social History Tobacco Use Types Packs/Day Years Used Date Smoking Tobacco: Some Days Cigarettes Smokeless Tobacco: Never Alcohol Use Standard Drinks/Week [...] suspected to have Coronavirus/COVID-19? No / Unsure 02/28/2023 12:03 PM EDT documented as of this encounter Miscellaneous Notes * Telephone Encounter - Delphine Figueroa RN - 03/29/2023 5:12 PM EDT T/C returned to pt re below message. Pt stated he needs it for his old feet as they need to be cleaned. Pt verbalized understanding and denied having any further questions or concerns at this time. * Telephone Encounter - Zakia Gavin - 03/29/2023 3:59 PM EDT Tc from pt requesting a new referral for Podiatry. Please contact pt at [phone] Citizen Of [place] Speaker documented in this encounter Plan of Treatment Not on file documented as of this encounter Visit Diagnoses Not on filedocumented in this encounter Care Teams Operations Label Clerk Relationship Specialty Start Date End Date Kristi Warren ANP [address] [place] [address] PCP - General Family Medicine 03/24/20 [facility] 08/09/24 documented as of this encounter
--- OUTSIDE RECORDS SUMMARY | 2024-10-30 12:02 | XMS_ITS | Encounter Summary ---
Author Organization [employer] [facility] Address [address] [facility] 7t [place] [address] Care Team Providers Care Document Processor Name Role Phone Kristi Warren Primary Care Provider [phone] Reason for Visit * Reason Comments Med Refill Encounter Details Date Type Department Care Team ([facility] st Contact Info) Description 11/18/2022 Refill [facility] MEDICINE [address] [place] [address] Kristi Warren ANP [address] [place] [address] Type 2 diabetes mellitus with diabetic nephropathy, with long-term current use of insulin (CMS/HCC) (Primary Dx) Social History Tobacco Use Types Packs/Day Years [...] suspected to have Coronavirus/COVID-19? No / Unsure 11/15/2022 12:25 PM EST documented as of this encounter Plan of Treatment Not on file documented as of this encounter Visit Diagnoses Diagnosis Type 2 diabetes mellitus with diabetic nephropathy, with long-term current use of insulin (CMS/HCC)- Primary documented in this encounter Care Teams Document Processor Relationship Specialty Start Date End Date Kristi Warren ANP [address] [place] [address] PCP - General Family Medicine 03/24/20 [facility] 08/09/24 documented as of this encounter
--- OUTSIDE RECORDS SUMMARY | 2024-10-30 12:02 | XMS_ITS | Encounter Summary ---
Author Organization [facility], Address [address] [place] [address] Phone Care Team Providers Care Senior Drupal Developer Name Role Phone Kristi Warren FLOWER GRADER Primary Care Provider Unavailabl e Reason for Visit * Reason Comments Med Refill Encounter Details Date Type Department Care Team (Late st Contact Info) Description 10/20/2024 Refill [facility], [address] [place] [address] Jt Ochoa PA [address] [place] [address] Social History Tobacco Use Types Packs/Day Years [...] on filedocumented in this encounter Care Teams Senior Drupal Developer Relationship Specialty Start Date End Date Kristi Warren NP PCP - General Nurse Practitioner 02/02/21 documented as of this encounter
--- OUTSIDE RECORDS SUMMARY | 2024-10-30 12:02 | XMS_ITS | Encounter Summary ---
Author Organization [facility], Address [address] [place] [address] Phone Care Team Providers Care Teacher Of The Deaf/Hard Of Hearing Name Role Phone Kristi Warren DRIVE AWAY DRIVER Primary Care Provider Unavailnathalie e Encounter Details Date Type Department Care Team (Late st Contact Info) Description 07/30/2024 Documentation Only [facility], - Angel Caicedo [address] [place] [phone] Iona Salas [address] [place] [address] Social History Tobacco Use Types [...] on filedocumented in this encounter Care Teams Teacher Of The Deaf/Hard Of Hearing Relationship Specialty Start Date End Date Kristi Warren NP PCP - General Nurse Practitioner 02/02/21 documented as of this encounter
--- OUTSIDE RECORDS SUMMARY | 2024-10-30 12:02 | XMS_ITS | Encounter Summary ---
Author Organization [facility], Address [address] [place] [address] Phone Care Team Providers Care Process Area Supervisor Name Role Phone Kristi Warren HAND PAINT MIXER Primary Care Provider Unavailabl e Reason for Visit * Reason Comments Med Refill Encounter Details Date Type Department Care Team (Late st Contact Info) Description 10/15/2024 Refill [facility], [address] [place] [address] Jt Ochoa PA [address] [place] [address] Social History Tobacco Use Types [...] on filedocumented in this encounter Care Teams Process Area Supervisor Relationship Specialty Start Date End Date Kristi Warren NP PCP - General Nurse Practitioner 02/02/21 documented as of this encounter
--- OUTSIDE RECORDS SUMMARY | 2024-10-30 12:02 | XMS_ITS | Clinical Summary ---
Author Organization [facility], Address [address] [place] [address] [place] [address] Phone Care Team Providers Care Environmental Intern Name Role Phone Kristi Warren NP Primary Care Provider Unavailabl e Allergies No known active allergies Medications hydroCHLOROthia zide (MICROZIDE) 12.5 MG capsule Take 1 capsule by mouth 1 (one) time each day Active insulin aspart (NovoLOG FLEXPEN) 100 UNIT/ML injection Inject 8-10 Units under the skin 2 (two) times a day Active tamsulosin (FLOMAX) 0.4 MG 24 hr capsule Take 1 capsule by mouth at bed time Active traZODone (DESYREL) 100 MG tablet Take 2 tablets by mouth 1 (one) time each day Active aspirin (ASPIR-LOW) 81 MG EC tablet Take 1 tablet by mouth 1 (one) time each day Active insulin glargine (LANTUS SOLOSTAR) 100 UNIT/ML injection Inject 10 unit marking on U-100 syringe under the skin Active cilostazol (PLETAL) 100 MG tablet 0 Active pravastatin (PRAVACHOL) 40 MG tablet 0 Active traMADol (ULTRAM) 50 MG tablet TAKE 1 TABLET BY MOUTH THREE TIMES DAILY 0 Active acetaminophen (TYLENOL) 500 MG tablet Take by mouth every 6 (six) hours if needed for mild pain Active Naloxone HCl (Narcan) 4 MG/0.1ML liquid Administer into affected nostril(s) Active Jardiance 10 MG tablet Take by mouth 2 Active losartan (COZAAR) 50 MG tablet TAKE 2 TABLETS BY MOUTH ONCE DAILY IN THE MORNING 180 tablet 3 3 Active calcitriol (ROCALTROL) 0.25 MCG capsule TAKE 1 CAPSULE BY MOUTH IN THE MORNING ON MONDAY, MONDAY, AND MONDAY 36 capsule 3 3 Active FeroSul 325 (65 Fe) MG tablet TAKE 1 TABLET BY MOUTH TWICE DAILY IN THE MORNING AND AT BEDTIME 60 tablet 11 3 Active Vitamin D, Ergocalciferol, 48884 units capsule Use 500 mcg in the mouth or throat per week 4 capsule 13 4 Active furosemide (LASIX) 20 MG tablet Take 2 tablets (40 mg total) by mouth every morning 180 tablet 3 4 Active amLODIPine (NORVASC) 5 MG tablet Take 1 tablet (5 mg total) by mouth 1 (one) time each day 90 tablet 3 4 01/24/20 25 Active Active Problems Problem Noted Date Diagnosed Date Stage 3b chronic kidney disease 07/30/2024 Renal osteodystrophy 02/01/2021 Stage 3a chronic kidney disease 09/24/2019 Overview (10/12/2020): Update for Diagnosis Load 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 1 11/25/2018 Hypertension Type 2 diabetes mellitus Overview (10/25/2022): nephropathy Resolved Problems Problem Noted Date Diagnosed Date Resolved Date Gout 09/24/2019 09/06/2021 Hypercholesterolemia 09/24/2019 021 Hypertensive heart disease [facility] congestive heart failure 09/24/2019 01/24/2022 Microalbuminuria 09/24/2019 09/06/2021 Hyperuricemia 01/24/2022 Hypervolemia 01/24/2022 Hyperparathyroidism 01/25/20 22 Encounters Date Type Department Care Team Description 10/20/2024 Refill [facility] [address] [place] [address] Jt Ochoa PA 10/15/2024 Refill [facility] [address] [address] Jt Ochoa PA 07/30/2024 Documentation Only [facility] - Angel MAYER [address] [place] [phone] Iona Salas 07/30/2024 Documentation Only [facility], [address] [place] [phone] Iona Salas 07/30/2024 Documentation Only [facility], [address] [place] [phone] Iona Salas from Last 3 Months Immunizations Name Administration Dates Next Due Influenza (IM) Preservative Free 07/09/2020 Influenza Split 07/03/2015, 5,04/24/2014,07/22,09/13/2012 Influenza Split High Dose Pr eservative Free IM 06/10/2020,07/04/2017,10/28/2016 Influenza, Quadrivalent, Pre servative Free 09/28/2018 Influenza, Quadrivalent, Wit h Preservative 08/23/2016 Influenza, Trivalent, Adjuvanted 07/03/2019 Pfizer SARS-COV-2 11/19/2020 Pneumococcal Conjugate 13-Valent 07/12/2017,08/09,12/27/2015 Pneumococcal Polysaccharide 09/28/2018,0 07/04/2017,03/07/2012,09/11 Shingrix 04/14/2020,11/29/2019 Td 04/30/2024,04/22/2008 Tdap 07/22/2013,04/23/2008 Zoster 04/14/2020,11/29/2019,07/04/2017 Family History Medical History Relation Comments Diabetes Father Hypertension Father Diabetes Mother Heart disease Mother Hypertension Mother Relation Status Comments Father Unknown Mother Unknown Social History Tobacco Use Types Packs/Day Years Used Date Smoking Tobacco: Every Day Cigarettes Tobacco Cessation:Ready to Q uit: Not Asked; Counseling Given: Not Answered Alcohol Use Standard Drinks/Week Comments No 0 (1 standard drink = 0.6 oz pur e alcohol) Sex and Gender Information Value Date Recorded Sex Assigned at Not on file Legal Sex Male 4:35 PM EST Gender Identity Not on file Sexual Orientation Not on file Last Filed Vital Signs Vital Sign Reading Time Taken Comments Blood Pressure 102/58 10/25/2022 1:20 PM EST Pulse 78 12/12/2019 4:12 PM EST Temperature - - Respiratory Rate 16 12/12/2019 4:12 PM EST Oxygen Saturation - - Inhaled Oxygen Concentration - - Weight 88.1 kg (194 lb 3.2 oz) 10/25/2022 1:20 P M EST Height 172.7 cm (5' 8 ) 10/25/2022 1:20 PM EST Body Mass Index 29.53 10/25/2022 1:20 PM EST Plan of Treatment Health Maintenance Due Date Last Done Comments Colorectal Cancer Screening: Annual FOBT 1999 Colorectal Cancer Screening: Colonoscopy 1999 Colorectal Cancer Screening: Sigmoidoscopy 1999 Diabetes: Ophthalmology Exam 09/24/2019 Diabetes: Pedal Pulse Checked 09/24/2019 Diabetes: Sensory Foot Exam 09/24/2019 Diabetes: Visual Foot Exam 09/24/2019 Influenza Vaccine (#1) 2024 0, 06/10/2020, 07/03/2019, Additional history exists Diabetes: Hemoglobin A1C 07/31/2024 024, 01/16/2024, 11/28/2023, Additional history exists Pneumococcal Vaccine: 65+ Years Completed 09/28/2018, 07/12/2017, 07/04/2017, Additional history exists Hepatitis B Vaccine Aged Out No longe r eligible based on patient's age to complete this topic Procedures Procedure Name Priority Date/Time Associated Diagnosis Comments HEMOGLOBIN A1C Routine 10/25/2022 1:48 PM EST Stage 3a chronic kidney disease (HCC) from Last 3 Months or Most Recently Relevant to Health Maintenance Results * (ABNORMAL) Hemoglobin A1c (10/25/2022 1:48 PM EST) Hemoglobin A1C 6.0(H) (4.0-5.6) % [facility] Comment: MONITORING: In known diabetic patients, hemoglobin A1c targets should be discussed with health care provider. DIAGNOSTIC USE: ??The [place] Diabetes Association (ADA) and the World Health Organization (WHO) recommend the use of HbA1c to diagnose diabetes using a threshold of 6.5%. Patients who have an HbA1c between 5.7% and 6.4% are considered at increased risk for developing diabetes in the future. CAUTION: Falsely low HbA1c results may be observed in patients with hemolytic anemia, homozygous forms of abnormal hemoglobin (e.g. SS, CC, SC), , recent blood loss or hemoglobin F greater than 7%. Fructosamine may be used as an alternate test in these cases. REFERENCE: ADA: Standards of Medical Care in Diabetes 2020, The Journal of Clinical and Applied Research and Education Volume 43, Supplement 1 Testing performed or reported by [facility], a Service of [facility], [address] [place] [id number] Elvira Lopez MD, Coffee Maker [facility]# [id number] Blood (Blood, Venous) 10/25/2022 1:48 PM EST 10/25/2022 1:54 PM EST Jt GAL[facility] BLOOD ORDERABLES Final Re sult [facility] from Last 3 Months or Most Recently Relevant to Health Maintenance Insurance [address] [place] [id number] FORMER[facility] SNP ([id number]) [id number] [place] [id number] [address] [place] [id number] Care Teams Environmental Intern Relationship Specialty Start Date End Date Kristi Warren NP PCP - General Nurse Practitioner 02/02/21
--- OUTSIDE RECORDS SUMMARY | 2024-10-30 12:02 | XMS_ITS | Encounter Summary ---
Author Organization [employer] Address [address] [facility] [address]t [place] [address] Care Team Providers Care Clinical Laboratory Aide Name Role Phone Kristi Warren ANP Primary Care Provider [phone] Reason for Visit * Reason Onset Date Comments Referral 11/17/2022 Encounter Details Date Type Department Care Team ([facility] st Contact Info) Description 11/17/2022 Telephone [facility] [address] [place] [address] Kristi Warren ANP [address] [place] [address] Referral Social History Tobacco Use Types Packs/Day [...] PM EST documented as of this encounter Miscellaneous Notes * Telephone Encounter - Adebayo Gottlieb - 11/17/2022 1:54 PM EST Tc from pt requesting a referral for a vender to have toe nails cut Please contact pt at [phone] documented in this encounter Plan of Treatment Not on file documented as of this encounter Visit Diagnoses Not on filedocumented in this encounter Care Teams Clinical Laboratory Aide Relationship Specialty Start Date End Date Kristi Warren ANP [address] [place] [address] PCP - General Family Medicine 03/24/20 [facility] 08/09/24 documented as of this encounter
--- OUTSIDE RECORDS SUMMARY | 2024-10-30 12:02 | XMS_ITS | Encounter Summary ---
Author Organization [employer] Address [address] [facility] [address] [place] [address] Care Team Providers Care Tailor Fitter Name Role Phone Kristi Warren Primary Care Provider [phone] Encounter Details Date Type Department Care Team (Late st Contact Info) Description 10/19/2022 Orders Only [facility] [address] [place], [place] [phone] Mona Porras LPN Social History Tobacco Use Types Packs/Day Years Used Date Smoking Tobacco: Never Smokeless Tobacco: Never Sex and Gender Information Value Date Recorded [...] suspected to have Coronavirus/COVID-19? No / Unsure 10/14/2022 11:50 AM EST documented as of this encounter Plan of Treatment Not on file documented as of this encounter Procedures Procedure Name Priority Date/Time Associated Diagnosis Comments XR FOOT 1-2 VIEWS RIGHT Routine 11/07/2022 11:42 AM EST documented in this encounter Results * XR Foot 1-2 Views Right (11/07/2022 11:42 AM EST) Anatomical Region Laterality Modality Lower Extremities, Foot Right [facility] 11/07/2022 11:4 2 AM EST Narrative 11/09/2022 8:38 PM EST ? [facility] ?[address] ?[place] [address] ?XRay Report ? Signed ? Patient: Baeza,Albert ?MR#: [id number] ? : 1950 ?Acct:[id number] ? Age/Sex: 72 / M ?ADM Date: 11/07/22 ? Loc: HO.XRAY ? Attending Dr: Ophelia Hubbard AZURE ARCHITECT ? Ordering Physician: OPHELIA HUBBARD NP ?? Date of Service: 11/07/22 ?? Procedure(s): XR foot RT 2V ?? Accession Number(s): [id number] ? cc: OPHELIA HUBBARD NP ? EXAMINATION: ?? XR FOOT, RIGHT ? CLINICAL INFORMATION: ?? Right great toe pain. ? COMPARISON: ?? None ? TECHNIQUE: ?? AP, lateral, and oblique views of the right foot. ? FINDINGS: ?? Bony alignment and mineralization are normal. No fracture, dislocation ?? or right ankle joint effusion is seen. Boehler's angle is normal. There ?? are minimal posterior and plantar calcaneal spurs. There is slight ?? bunion formation of the first metatarsal head. No focal soft tissue ?? swelling, gas or foreign body is seen. There are atherosclerotic ?? calcifications. ? XR/XR foot RT 2V ?? IMPRESSION: ? 1. No fracture, dislocation or right ankle joint effusion is seen. ? 2. There are minimal right calcaneal posterior and plantar spurs. ? 3. There is very mild bunion formation. ? Dictated By: ?Donald Lomeli MD ? Signed By: ?<Electronically signed by Donald Lomeli MD in OV> ? 11/09/222034 ? DD/ 1142 ? TD/TT: ? Mixing Technician: ALBERT ? Procedure Note Poli, Image - 11/09/[address] [address] XRay Report Signed Patient: Kanchan Baeza#: [id number] : 1950Acct:[id number] Age/Sex: 72 / MADM Date: 11/07/22 Loc: [facility] Attending Dr: Ophelia Hubbard AZURE ARCHITECT Ordering Physician: OPHELIA HUBBARD NP Date of Service: 11/07/22 Procedure(s): XR foot RT 2V Accession Number(s): [id number] cc: OPHELIA HUBBARD NP EXAMINATION: XR FOOT, RIGHT CLINICAL INFORMATION: Right great toe pain. COMPARISON: None TECHNIQUE: AP, lateral, and oblique views of the right foot. FINDINGS: Bony alignment and mineralization are normal. No fracture, dislocation or right ankle joint effusion is seen. Boehler's angle is normal. There are minimal posterior and plantar calcaneal spurs. There is slight bunion formation of the first metatarsal head. No focal soft tissue swelling, gas or foreign body is seen. There are atherosclerotic calcifications. XR/XR foot RT 2V IMPRESSION: 1. No fracture, dislocation or right ankle joint effusion is seen. 2. There are minimal right calcaneal posterior and plantar spurs. 3. There is very mild bunion formation. Dictated By: Donald Lomeli MD Signed By: <Electronically signed by Donald Lomeli MD in OV> 11/09/222034 DD/ 1142 TD/TT: Mixing Technician: ALBERT [place] Provider Result Type Result Stat [facility] External Provider IMG XR PROCEDURES Edited Result - Final documented in this encounter Visit Diagnoses Not on filedocumented in this encounter Care Teams Tailor Fitter Relationship Specialty Start Date End Date Kristi Warren ANP [address] [place] [address] PCP - General Family Medicine 03/24/20 [facility] 08/09/24 documented as of this encounter
--- OUTSIDE RECORDS SUMMARY | 2024-10-30 12:02 | XMS_ITS | Encounter Summary ---
Author Organization [facility], Address [address] [place] [address] Phone Care Team Providers Care Aerospace Control And Warning Systems Name Role Phone Kristi Warren MARINE ELECTRICIAN HELPER Primary Care Provider Unavailnathalie e Encounter Details Date Type Department Care Team (Late st Contact Info) Description 07/30/2024 Documentation Only [facility], - Angel Ca[address] [place] [phone] Iona Salas [address] [place] [address] Social History Tobacco Use Types [...] on filedocumented in this encounter Care Teams Aerospace Control And Warning Systems Relationship Specialty Start Date End Date Kristi Warren NP PCP - General Nurse Practitioner 02/02/21 documented as of this encounter
--- OUTSIDE RECORDS SUMMARY | 2024-10-30 12:02 | XMS_ITS | Encounter Summary ---
Author Organization [employer] Address [address] [facility] 7t [place] [address] Care Team Providers Care Ethylbenzene Converter Helper Name Role Phone Kristi Warren Primary Care Provider [phone] Encounter Details Date Type Department Care Team (Late st Contact Info) Description 11/24/2022 Orders Only [facility] [address] [place] [address] Amalia Pierre LPN Social History Tobacco Use Types Packs/Day [...] on filedocumented in this encounter Care Teams Ethylbenzene Converter Helper Relationship Specialty Start Date End Date Kristi Warren ANP [address] [place] [address] PCP - General Family Medicine 03/24/20 [facility] 08/09/24 documented as of this encounter
--- OUTSIDE RECORDS SUMMARY | 2024-10-30 12:03 | XMS_ITS | Encounter Summary ---
Author Organization [facility], Address [address] [place] [address] Phone Care Team Providers Care Elevator Repair Mechanic Name Role Phone Kristi Warren MANUFACTURING ACCOUNTANT Primary Care Provider Dakota rich Encounter Details Date Type Department Care Team (Late st Contact Info) Description 10/19/2022 Documentation Only [facility], [address] [place] [address] Jt Ochoa PA [address] [place] [address] Social History Tobacco Use Types [...] on filedocumented in this encounter Care Teams Elevator Repair Mechanic Relationship Specialty Start Date End Date Kristi Warren NP PCP - General Nurse Practitioner 02/02/21 documented as of this encounter
--- OUTSIDE RECORDS SUMMARY | 2024-10-30 12:03 | XMS_ITS | Encounter Summary ---
Author Organization [facility], Address [address] [place] [address] Phone Care Team Providers Care Pillar Man Name Role Phone Kristi Warren REGIONAL AGRONOMIST Primary Care Provider Unavailabl e Reason for Visit * Reason Comments Med Refill Encounter Details Date Type Department Care Team (Late st Contact Info) Description 09/15/2023 Refill [facility], [address] [place] [address] Jt Ochoa PA [address] [place] [address] Social History Tobacco Use Types [...] on filedocumented in this encounter Care Teams Pillar Man Relationship Specialty Start Date End Date Kristi Warren NP PCP - General Nurse Practitioner 02/02/21 documented as of this encounter
--- OUTSIDE RECORDS SUMMARY | 2024-10-30 12:03 | XMS_ITS | Encounter Summary ---
Author Organization [facility], Address [address] [place] [address] Phone Care Team Providers Care Manufacturing Baker Name Role Phone Kristi Warren NP Primary Care Provider Dakota rich Encounter Details Date Type Department Care Team (Late st Contact Info) Description 10/07/2022 Orders Only [facility], [address] [place] [address] Jt Ochoa PA [address] [place] [address] Stage 3a chronic kidney disease (HCC) Social History Tobacco Use Types Packs/Day Years [...] on file documented as of this encounter Progress Notes * Jt Ochoa PA - 10/07/2022 2:12 AM EST Patients PTH is going up. Please tell them I am going to increase his calcitriol frequency from 0.25 mcg three times per week to daily. A new prescription has been sent to his pharmacy when he finished his current prescription. Thanks! documented in this encounter Plan of Treatment Not on file documented as of this encounter Procedures Procedure Name Priority Date/Time Associated Diagnosis Comments URINALYSIS, COMPLETE Routine 10/25/2022 1:48 PM EST Stage 3a chronic kidney disease (HCC) IRON PANEL (FE, TIBC, TSAT) Routine 10/25/2022 1:48 PM EST Stage 3a chronic kidney disease (HCC) PROTEIN / CREATININE RATIO, URINE Routine 10/25/2022 1:48 PM EST Stage 3a chronic kidney disease (HCC) CBC AND DIFFERENTIAL Routine 10/25/2022 1:48 PM EST Stage 3a chronic kidney disease (HCC) PTH, INTACT Routine 10/25/2022 1:48 PM EST Stage 3a chronic kidney disease (HCC) HEMOGLOBIN A1C Routine 10/25/2022 1:48 PM EST Stage 3a chronic kidney disease (HCC) RENAL FUNCTION PANEL Routine 10/25/2022 1:48 PM EST Stage 3a chronic kidney disease (HCC) documented in this encounter Results * Iron Panel (Fe, TIBC, TSAT) (10/25/2022 1:48 PM EST) Pathologist [facility] Iron 70 (45-160) MCG/DL [facility] UIBC 153 (110-370) MCG/DL [facility] TIBC 223 (155-530) MCG/DL [facility] Iron Saturation (TSat) 31 (20-55) % [facility] Comment: Testing performed or reported by [facility], a Service of [facility], [address] [place] [address] Elvira Lopez MD, Rivet Driver [facility]# [id number] Blood (Blood, Venous) 10/25/2022 1:48 PM EST 10/25/2022 1:54 PM EST us Jt [facility] BLOOD ORDERABLES Final Re sult [facility] * (ABNORMAL) Hemoglobin A1c (10/25/2022 1:48 PM EST) Hemoglobin A1C 6.0(H) (4.0-5.6) % [facility] Comment: MONITORING: In known diabetic patients, hemoglobin A1c targets should be discussed with health care provider. DIAGNOSTIC USE: ??The [place] [employer] (ADA) and the World Health [...] Supplement 1 Testing performed or reported by [facility], [place] [address] Elvira Lopez MD, Rivet Driver CLIA# [id number] Blood (Blood, Venous) 10/25/2022 1:48 PM EST 10/25/2022 1:54 PM EST Jt [facility] BLOOD ORDERABLES Final Re sult Performing Organization Address [facility] Phone Number [facility] * (ABNORMAL) PTH, intact (10/25/2022 1:48 PM EST) PTH, Intact 105(H) (15-65) PG/ML [facility] Comment: Testing performed or reported by [facility], a Service of [facility], [address] [place] [address] Elvira Lopez MD, Rivet Driver CLIA# [id number] Blood (Blood, Venous) 10/25/2022 1:48 PM EST 10/25/2022 1:54 PM EST [facility]t [facility] BLOOD ORDERABLES Final Re sult Performing Organization Address [facility] Co de Phone Number [facility] * Urine Protein / creatinine ratio (10/25/2022 1:48 PM EST) Pathologist [facility] Protein/Creatin e Ratio 0.14 (0-0.2) [facility] Protein, Urine 13 MG/DL [facility] Creatinine, Urine 96.2 MG/DL [facility] Comment: Testing performed or reported by [facility], a Service of [address] [address] Elvira Lopez MD, Rivet Driver [facility]# [id number] Urine (Urine, Clean Catch) 10/25/2022 1:48 PM EST 10/25/2022 1:54 PM EST [facility] URINE ORDERABLES Final Re sult [facility] * (ABNORMAL) Urinalysis, Complete w/reflex to Culture (10/25/2022 1:48 PM EST) Pathologist [facility] Appearance LIGHT YELLOW [facility] Comment:CLEAR Specific [place] 1.014 (1.002-1. 030) [facility] pH Urine 6.0 (5.0-8.0) [facility] Albumin, Urine TRACE(A) (NEG) [facility] Glucose, Ur NEGATIVE (NEG) [facility] Ketones, Urine NEGATIVE (NEG) [facility] Bilirubin Urine NEGATIVE (NEG) [facility] Hemoglobin Presence in Urine NEGATIVE (NEG) [facility] Nitrite, Urine NEGATIVE (NEG) [facility] Leukocyte Esterase Urine NEGATIVE (NEG) [facility] Urobilinogen Urine NORMAL (NORM) MG/DL [facility] WBC, Urine 1 (0-5) /HPF [facility] RBC, Urine 1 (0-3) /HPF [facility] Mucus, Urine SLIGHT /LPF [facility] Hyaline Casts, Urine 4(H) (0-2) LPF [facility] Clarity CLEAR (CLEAR) [facility] CULTURE INDICATED CULTURE NOT INDICATED [facility] Comment: Testing performed or reported by [facility], a Service of [address] [address] Elvira Lopez MD, Rivet Driver [facility]# [id number] Urine (Urine, Clean Catch) 10/25/2022 1:48 PM EST 10/25/2022 1:54 PM EST us [facility] URINE ORDERABLES Final Re sult [facility] * (ABNORMAL) CBC and differential (10/25/2022 1:48 PM EST) White Blood Cells 10.3 (4.0-11.0 ) K/MM3 [facility] RBC 4.06(L) (4.70-6.1 0) M/MM3 [facility] Hgb 13.7 (13.7-17. 1) GM/DL [facility] Hematocrit 42.3 (40.5-50. 0) % [facility] MCV 104.2(H) (80.0-94. 0) FL [facility] MCH 33.7 (27.0-34. 0) PG [facility] MCHC 32.4(L) (33.0-37. 0) g/dL [facility] Platelets 232 (150-460) K/MM3 [facility] RDW-SD 50.7(H) (<47.0) FL [facility] MPV 9.8 (9.4-12.4 ) FL [facility] nRBC Count 0.0 #/100 WBC'S [facility] NRBC Absolute 0.0 K/MM3 [facility] Neutrophils Abs Auto 6.6 (1.3-7.0) K/MM3 [facility] Lymphocytes Relative 2.6 (0.8-3.1) K/MM3 [facility] Monocytes 0.7 (0.4-1.3) K/MM3 [facility] Eosinophils Relative 0.2 (0.0-0.4) K/MM3 [facility] Basophil ABS 0.1 (0.0-0.1) K/MM3 [facility] Granulocytes Absolute 0.1 K/MM3 [facility] Neutrophils % Auto 64.3 (44-76) % [facility] Lymphs 25.4 (15-43) % [facility] Monocytes Absolute 7.0 (4.5-10.5 ) % [facility] Eosinophils 2.3 (0-6) % [facility] Basophils Relative 0.5 (0-2) % [facility] Immature Granulocytes 0.5 % [facility] Comment: Testing performed or reported by [facility], a Service of [facility], [address] [place] [address] Elvira Lopez MD, Rivet Driver [place]# [id number] Blood (Blood, Venous) 10/25/2022 1:48 PM EST 10/25/2022 1:54 PM EST [facility] BLOOD ORDERABLES Final Re sult Performing Organization Address City/[facility]/ZIP Co de Phone Number [facility] * (ABNORMAL) Renal function panel (10/25/2022 1:48 PM EST) Pathologist [facility] Glucose 116(H) (70-99) MG/DL [facility] BUN 25(H) (8-23) MG/DL [facility] Creatinine 1.7(H) (0.7-1.2) MG/DL [facility] Sodium 139 (133-145) MMOL/L [facility] Potassium 4.5 (3.6-5.2) MMOL/L [facility] Chloride 100 (98-107) MMOL/L [facility] Bicarbonate (CO2) 33(H) (22-29) MMOL/L [facility] Anion Gap 6 (4-17) [facility] Albumin 4.2 (3.4-4.8) GM/DL [facility] Calcium 9.5 (8.6-10.5) MG/DL [facility] Phosphorus, Serum 3.8 (2.5-4.5) MG/DL [facility] Est GFR Non 44 ML/MIN/1.7 3 M2 [facility] Comment: Creatinine based estimated glomerular filtration (eGFR) in adults is calculated using the National Kidney Foundation recommended 2020 CKD-EPI equation. Estimates GFR from serum creatinine, age and sex. Testing performed or reported by [facility], a Service of [facility], [address] [place] [address] Elvira Lopez MD, Rivet Driver [place]# [id number] Blood (Blood, Venous) 10/25/2022 1:48 PM EST 10/25/2022 1:54 PM EST [facility] BLOOD ORDERABLES Final Re sult Performing Organization Address City/[facility]/ZIP Co de Phone Number [facility] documented in this encounter Visit Diagnoses Diagnosis Stage 3a chronic kidney disease (HCC) documented in this encounter Care Teams Manufacturing Baker Relationship Specialty Start Date End Date Kristi Warren NP PCP - General Nurse Practitioner 02/02/21 documented as of this encounter
--- OUTSIDE RECORDS SUMMARY | 2024-10-30 12:03 | XMS_ITS | Encounter Summary ---
Author Organization [facility], Address [address] [place] [address] Phone Care Team Providers Care Dining Server Name Role Phone Kristi Warren ENGLISH TEACHER Primary Care Provider Dakota rich Encounter Details Date Type Department Care Team (Late st Contact Info) Description 01/21/2022 Documentation Only [facility], [address] [place] [address] Jt Ochoa PA [address] [place] [address] Social History Tobacco Use Types [...] on filedocumented in this encounter Care Teams Dining Server Relationship Specialty Start Date End Date Kristi Warren NP PCP - General Nurse Practitioner 02/02/21 documented as of this encounter
--- OUTSIDE RECORDS SUMMARY | 2024-10-30 12:03 | XMS_ITS | Encounter Summary ---
Author Organization [facility], Address [address] [place] [address] Phone Care Team Providers Care Art Department Head Name Role Phone Kristi Warren GLOBAL SALES MANAGER Primary Care Provider Dakota rich Encounter Details Date Type Department Care Team (Late st Contact Info) Description 01/10/2024 Documentation Only [facility], [address] [place] [address] Iona Salas [address] [place] [address] Social History Tobacco Use Types [...] on filedocumented in this encounter Care Teams Art Department Head Relationship Specialty Start Date End Date Kristi Warren NP PCP - General Nurse Practitioner 02/02/21 documented as of this encounter
--- OUTSIDE RECORDS SUMMARY | 2024-10-30 12:03 | XMS_ITS | Encounter Summary ---
Author Organization [facility], Address [address] [place] [address] Phone Care Team Providers Care Pest Control Supervisor Name Role Phone Kristi Warren MANAGER ENVIRONMENTAL HEALTH Primary Care Provider Dakota rich Encounter Details Date Type Department Care Team (Late st Contact Info) Description 01/27/2023 Orders Only [facility], [address] [place] [address] Jt Ochoa PA [address] [place] [address] Stage 3a chronic kidney disease [...] as of this encounter Visit Diagnoses Diagnosis Stage 3a chronic kidney disease (HCC) documented in this encounter Care Teams Pest Control Supervisor Relationship Specialty Start Date End Date Kristi Warren NP PCP - General Nurse Practitioner 02/02/21 documented as of this encounter
--- OUTSIDE RECORDS SUMMARY | 2024-10-30 12:03 | XMS_ITS | Data Portability ---
Author Organization [facility]ster [facility], Main Office Address [address] [place] [address] Care Team Providers Care Protection Specialist Name Role Phone SAMSON PETERSON - 2ND FLOOR OTHER Assessment No assessment recorded. Plan of [...] instructions recorded. Reason for Referral None Reported. Problems Name Problem SNOMED Code Status Onset Date Resolution Date Notes Provider Name and Address Organization Details Recorded Time Hypoxia 566829444 Active 2023 Nayely Lucas NP [address] [facility], [address], [place], [address], [facility] Slated 4 10:29:30 Pneumonia 107586341 Active 2023 Nayely Lucas NP [address] [facility], [address], [place], [address], [facility] Slated 4 10:29:34 Acute respiratory failure 44256857 Active 2023 Nayely Lucas NP [address] [facility], [address], [place], [address], [facility] Slated 4 10:29:54 Pneumothorax 29633774 Active 2023 Nayely Lucas NP [address] [facility], [address], [place], [address], [facility] Slated 4 10:30:00 Septic shock 13045854 Active 2023 Nayely Lucas NP [address] [facility], [address], [place], [address], [facility] 4 10:30:21 Metabolic encephalopathy 86154301 Active 2023 Nayely Lucas NP [address], [place], [address], [facility] 4 10:30:35 Impaired cognition 260804789 Active 2023 Nayely Lucas NP [address], [place], [address], [facility] 4 10:30:50 Traumatic hematuria 17872104 Active 2023 Nayely Lucas NP [address], [place], [address], [facility] 4 10:32:30 Closed fracture of rib 11276126 Active 2023 Nayely Lucas NP [address], [place], [address], [facility] 4 10:32:51 Bradycardia 79043525 Active 2023 Nayely Lucas NP [address], [place], [address], [facility] 4 10:33:18 Hypertensive disorder 08400994 Active 2023 Nayely Lucas NP [address], [place], [address], [facility] 4 10:33:26 Hyperlipidemia 83204960 Active 2023 Nayely Lucas NP [address], [place], [address], [facility] 4 10:33:47 Type 2 diabetes mellitus 58291014 Active 2023 Nayely Lucas NP [address], [place], [address], [facility] 4 10:33:55 Wjeno-cm-usjng ic renal failure 040033993 Active 2023 Nayely Lucas NP [address], [place], [address], [facility] Slated 4 10:34:44 Coronary arterioscleros is 93016051 Active 2023 Nayely Lucas NP [address] [facility], [address], [place], [address], [facility] Slated 4 10:34:53 Problem Notes None recorded. Medical Equipment None Reported. Allergies No known drug allergies Medications Name Sig Start Date Stop Date Status Note LastModified by Organization Details LastModified Time medbox status USE DIRECTED 07/03 completed Not Available Not Available Not Available pramipexole 1 mg tablet TAKE 1 TABLET BY MOUTH AT BEDTIME 07/03 completed Not Available Not Available Not Available furosemide 40 mg tablet TAKE 1 TABLET BY MOUTH EVERY MORNING 07/03 completed Not Available Not Available Not Available cilostazol 100 mg tablet TAKE 1 TABLET BY MOUTH TWICE DAILY 07/03 completed Not Available Not Available Not Available gabapentin 600 mg tablet TAKE 1 TABLET BY MOUTH AT BEDTIME 07/03 completed Not Available Not Available Not Available doxycycline hyclate 100 mg capsule TAKE 1 CAPSULE BY MOUTH TWICE DAILY WITH A FULL GLASS OF WATER (8 OUNCES) FOR 5 DAYS, Do not lie down for 30 minutes after taking 07/03 completed Not Available Not Available Not Available nicotine 14 mg/24 hr daily transdermal patch APPLY 1 PATCH TOPICALLY TO THE SKIN IN THE MORNING DO NOT SMOKE WHILE USING PATCH 07/03 completed Not Available Not Available Not Available azithromyci n 250 mg tablet TAKE 2 TABLETS BY MOUTH ON DAY 1, THEN TAKE 1 TABLET DAILY ON DAYS 2-5 07/03 completed Not Available Not Available Not Available pravastatin 40 mg tablet TAKE 1 TABLET BY MOUTH AT BEDTIME 07/03 completed Not Available Not Available Not Available metoprolol succinate ER 50 mg tablet,exte nded release 24 hr TAKE 1 TABLET BY MOUTH EVERY MORNING 07/03 completed Not Available Not Available Not Available clonazepam 0.5 mg tablet TAKE 1 TABLET BY MOUTH AT BEDTIME 07/03 completed Not Available Not Available Not Available metoprolol succinate ER 100 mg tablet,exte nded release 24 hr TAKE 1 TABLET BY MOUTH EVERY MORNING 07/03 completed Not Available Not Available Not Available amlodipine 5 mg tablet TAKE 1 TABLET BY MOUTH EVERY MORNING 07/03 completed Not Available Not Available Not Available aspirin 81 mg tablet,laxmi yed release TAKE 1 TABLET BY MOUTH AT BEDTIME 07/03 completed Not Available Not Available Not Available tramadol 50 mg tablet TAKE 1 TABLET BY MOUTH THREE TIMES DAILY NEEDED FOR PAIN 07/03 completed Not Available Not Available Not Available amoxicillin 875 mg tablet TAKE 1 TABLET BY MOUTH TWICE DAILY FOR 5 DAYS 07/03 completed Not Available Not Available Not Available trazodone 100 mg tablet TAKE 2 TABLETS BY MOUTH EVERY DAY AT BEDTIME 07/03 completed Not Available Not Available Not Available erythromyci n 5 mg/gram (0.5 %) eye ointment APPLY 1 CM RIBBON TO LOWER LID OF AFFECTED EYE(S) THREE TIMES DAILY DIRECTED 07/03 completed Not Available Not Available Not Available furosemide 20 mg tablet TAKE 2 TABLETS BY MOUTH ONCE DAILY IN THE MORNING 07/03 completed Not Available Not Available Not Available ergocalcife rol (vitamin D2) 1,250 mcg (50,000 unit) capsule TAKE 1 CAPSULE BY MOUTH ONCE WEEKLY ON 07/03 completed Not Available Not Available Not Available clotrimazol e 1 % topical cream APPLY TOPICALLY TWICE DAILY 07/03 completed Not Available Not Available Not Available calcitriol 0.25 mcg capsule TAKE 1 CAPSULE BY MOUTH IN THE MORNING ON MONDAY, MONDAY , AND 07/03 completed Not Available Not Available Not Available pramipexole 1.5 mg tablet TAKE 1 TABLET BY MOUTH AT BEDTIME 07/03 completed Not Available Not Available Not Available nicotine 7 mg/24 hr daily transdermal patch APPLY 1 PATCH TOPICALLY TO THE SKIN IN THE MORNING DO NOT SMOKE WHILE USING PATCH 07/03 completed Not Available Not Available Not Available Antifungal (miconazole ) 2 % topical cream APPLY TOPICALLY TO THE AFFECTED AREA(S) OF TOES TWICE DAILY 07/03 completed Not Available Not Available Not Available nicotine (polacrilex ) 2 mg buccal lozenge DISSOLVE 1 LOZENGE BY MOUTH NEEDED FOR SMOKING CESSATION 07/03 completed Not Available Not Available Not Available UltiCare Pen Needle 31 gauge x 5/16 USE THREE TIMES DAILY 07/03 completed Not Available Not Available Not Available hydrochloro thiazide 12.5 mg tablet TAKE 1 TABLET BY MOUTH EVERY MORNING 07/03 completed Not Available Not Available Not Available FeroSul 325 mg (65 mg iron) tablet TAKE 1 TABLET BY MOUTH TWICE DAILY IN THE MORNING AND AT BEDTIME 07/03 completed Not Available Not Available Not Available Lantus Solostar U-100 Insulin 100 unit/mL (3 mL) subcutaneou s pen INJECT 8 UNITS SUBCUTANE OUSLY EVERY DAY 07/03 completed Not Available Not Available Not Available FreeStyle Straughn Lite kit USE DIRECTED TO TEST BLOOD SUGAR THREE TIMES DAILY 07/03 completed Not Available Not Available Not Available diclofenac 1 % topical gel APPLY 2 GRAMS TOPICALLY AFFECTED AREA(S) 4 TIMES A DAY IN THE MORNING, AT NOON, IN THE EVENING, AND AT BEDTIME NEEDED FOR PAIN NECK 07/03 completed Not Available Not Available Not Available testosteron e 20.25 mg/1.25 gram per pump act.(1.62 %) transdermal gel APPLY 3 PUMPS TOPICALLY TO upper arm DIRECTED DAILY 07/03 completed Not Available Not Available Not Available TRUEplus Lancets 33 gauge TEST BLOOD SUGAR 2-3 TIMES PER DAY 07/03 completed Not Available Not Available Not Available Jardiance 10 mg tablet TAKE 1 TABLET BY MOUTH EVERY MORNING 07/03 completed Not Available Not Available Not Available Jardiance 25 mg tablet TAKE 1 TABLET BY MOUTH EVERY MORNING 07/03 completed Not Available Not Available Not Available FreeStyle Precision Wesley Strips USE TO TEST BLOOD SUGAR 5 TIMES EVERY DAY DIRECTED 07/03 completed Not Available Not Available Not Available TechLITE Pen Needle 32 gauge x 5/32 USE DIRECTED WITH LANTUS 07/03 completed Not Available Not Available Not Available FreeStyle Sherley 2 Sensor kit USE DIRECTED TO TEST BLOOD SUGAR CHANGE EVERY 14 DAYS 07/03 completed Not Available Not Available Not Available FreeStyle Sherley 2 [place] USE DIRECTED SCAN EVERY 8 HOURS 07/03 completed Not Available Not Available Not Available Vitals Date Recorded Body weight Heart rate Respiratory rate Body temperature Oxygen saturation Oxygen saturation in Arterial blood by Pulse oximetry Systolic blood pressure Diastolic blood pressure Provider Name and Address Organization Details Last Updated DateTime 4 85407.5 6 g 77 /min 18 /min 98 [degF] 98 % 98 % 132 mm[Hg] 72 mm[Hg] Nayely Lucas NP [address] [facility], [facility] [address], [place], [address], [facility] 4 19:37:18 Date Recorded Heart rate Respiratory rate Body temperature Oxygen saturation Oxygen saturation in Arterial blood by Pulse oximetry Systolic blood pressure Diastolic blood pressure Provider Name and Address Organization Details Last Updated DateTime 4 52 /min 18 /min 98 [degF] 98 % 98 % 116 mm[Hg] 66 mm[Hg] ALEC LIRA NP [address] [facility], [address], [place], [address], [facility] 4 12:47:24 Date Recorded Heart rate Respiratory rate Body temperature Oxygen saturation Oxygen saturation in Arterial blood by Pulse oximetry Systolic blood pressure Diastolic blood pressure Provider Name and Address Organization Details Last Updated DateTime 4 52 /min 17 /min 98.1 [degF] 97 % 97 % 112 mm[Hg] 60 mm[Hg] ALEC LIRA NP [address] [facility], [facility] [address], [place], [address], [facility] 4 12:29:58 Date Recorded Body weight Heart rate Respiratory rate Body temperature Oxygen saturation Oxygen saturation in Arterial blood by Pulse oximetry Systolic blood pressure Diastolic blood pressure Provider Name and Address Organization Details Last Updated DateTime 4 14860.9 3 g 70 /min 18 /min 98 [degF] 97 % 97 % 124 mm[Hg] 68 mm[Hg] Nayely Lucas NP [address] [facility], [address], [place], [address], [facility] 4 13:19:54 Date Recorded Systolic blood pressure Diastolic blood pressure Provider Name and Address Organization Details Last Updated DateTime 07/03/2024 119 mm[Hg] 69 mm[Hg] Desean Galvez MD [address] [facility], [facility] [address], [place], [address], [facility] 07/03/2024 13:36:50 Social History Question Answer Notes LastModified by Organizat ion Details LastModified Time Tobacco Smoking Status Former Smoker Nayely Lucas NP [address] [facility], [address], [place], [address], [facility] 06/26/2024 11:48:17 Do You Have An Advance Directive? No Information not available 06/26/2024 What Is Your Level Of Alcohol Consumption? None Information not available 06/26/2024 What Is Your Code Status? Full Code Wants To Be Full Code Information not available 06/26/2024 Where Do You Live? Apartment Lives On 7th Floor, Elevator In Building Information not available 06/26/2024 Do You Have A Medical Power Of Sanipractic Physician? No Information not available 06/26/2024 What Was The Date Of Your Most Recent Tobacco Screening? 06/26/2024 Information not available 06/26/2024 Do You Have An Out Of Hospital DNR? No Information not available 06/26/2024 What Is Your Relationship Status? Information not available 06/26/2024 How Much Tobacco Do You Smoke? 2 PPD Information not available 06/26/2024 Do You Use Any Illicit Or Recreational Drugs? No Information not available 06/26/2024 Has Tobacco Cessation Counseling Been Provided? Yes Yes Information not available 06/26/2024 On What Date Was Tobacco Cessation Counseling Provided? 06/26/2024 Information not available 06/26/2024 Do You Or Have You Ever Used Any Other Forms Of Tobacco Or Nicotine? No Information not available 06/26/2024 Sex: Male Functional Status None recorded. Mental Status None recorded. Family History Nothing Reported Notes:N/C Medical History No medical history recorded. Past Encounters Encounter ID Performer Location Encounter Start Date Encounter Closed Date Diagnosis/Indication Diagnosis SNOMED-CT Code Diagnosis ICD10 Code Diagnosis Note [id number] Nayely Lucas NP [address] [place] [address] 06/26/2024 09:27:14 07/01/2024 14:09:08 Acute respiratory failure 27771571 J96.00 see above Septic shock 87662155 R6 5.21 resolved and hypothermi a resolved with care and fluidssee above Pneumonia 902678497 J18. 9 felt likely due to aspiration pna with acute resp failure, septic shock, hypoxia, and pneumothor ax required icu careresolv ed with abx and felt improved no longer on abx or [id number] l 2 puffs prn qidseen by speech-nila olmos speech herediet: modified texture, thin liquidsmon itor cbc weeklymoni tor for resp distress, vitals, reoccurenc e Hypoxia 731806738 R09.02 see above Pneumothorax 09654757 J9 3.9 pt with pneumothor ax and felt closed rib frac per summarytyl prn painmonito r for reoccurenc e Closed fra cture of rib 92905623 S22.39XD felt resolvedpt with pneumothor ax and felt closed rib frac per summarytyl prn painmonito r for reoccurenc e, resp distress Traumatic hematuria 9556 7008 R31.9 Hematuria resolved, thought to be from traumatic insertion. He was seen by Urology, and had CBI. Crowder catheter was removed 06/21, voiding well sincemonit or for diff urination Impaired cognition 73434 6002 R41.89 possible dementia? cognition improved during hospitaliz ationfelt related to metabolic encephalop athyBIMS 07/23 today, monitor for improvemen the is very clear about full code for molst todaywill monitor for need to invoke with met encephalop athy improvingm onitor for changes Metabolic encephalopathy 41455924 G93.41 possible dementia? cognition improved during hospitaliz ationfelt related to metabolic encephalop athyquetia pine 12.5 mg po bid prn agitationt hiamine 100 mg po dialy started in hosptrazod one 50 mg po at supper dailymonit or for changes Acute-on-c hronic renal failure 594014867 N17.9 SUSHILA resolved with tx and fluidsmoni tor with history of CKDbmp weekly Hypertensive disorder 38 737507 I10 pt with hypotensio n initially with bradycardi a with fluid overload in the hospitalwa s seen by cards- Was on Metoprolol per cardiology recs for NSVT and pAfib, but was bradycardi camlodipin e 10 mg po dailymetop rolol reduced dose to 25mg BID with holding parameters Eliquis 5 mg BID per cardiology for afiblasix 40 mg po dailymonit or vs with bp daily x 2 weeksadjus t as needed Type 2 saji betes mellitus 21891785 E11.9 insulin sliding scalemonit or BS tid and acmonitor Ha1c prn Hyperlipidemia 29680889 E78.5 atorvastat in 40 mg po qhsmonitor Coronary arteriosclerosis 58015766 I25.10 atorvastat in 40 mg po qhsmetopro lol reduced dose to 25mg BID with holding parameters Eliquis 5 mg BID per cardiology for afibfollow with cards outpt prnmonitor Electrolyte imbalance 10 0384176 E87.8 imbalance of electrolyt es in hosppotass ium phosphates packet po bid 280-160-25 0 MGmonitor bmp weekly Asthenia 39659355 R53.1 pt with asthenia sp found downPT OT eval and treatmonit or Bradycardia 81969660 R00 .1 bradycardi a with VT, SVT and afibmetopr olol reduced to 25 mg po bidmonitor for reoccurenc e, vitalsbmp weekly x3 weeks Thyroid st imulating hormone level above reference range 818410116 R94.6 tsh elevated in hosp free t 4 0.73, tsh 8.38unclea r if hx of thyroid disease or newnot on meds at this timewill recheck tsh and free t4 next weekmonito r hr and bp daily x 2 weeks Neck pain 45366290 M54.2 reports some mid neck painxray done in hospital start lidocaine patch daily in amtyl prnmonitor Cigarette smoker 1697426 7 F17.210 reports he is a smoker for >12yrs and is quittinghe would like NRT patch today, reports urges to smoke06/26 start 7 mg nicotine patch daily, off at nightmonit or for need Falls 790497230 R29.6 found on ground with fallsuppor tive carept ot eval and treatwalke r or cane at baselinemo nitor [id number] Nayely Lucas NP [address] [place] [address] 07/01/2024 12:53:58 07/02/2024 14:42:53 Pneumonia 500832161 J18.9 felt likely due to aspiration pna with acute resp failure, septic shock, hypoxia, and pneumothor ax required icu careresolv ed with abx and felt improved no longer on abx or [id number] l 2 puffs prn qidseen by speech-nila olmos speech herediet: modified texture, thin liquidsmon itor cbc weekly to trend for infectionm onitor for resp distress, vitals, reoccurenc e Acute resp iratory failure 76609302 J96.00 see above Septic shock 90986512 R6 5.21 resolved and hypothermi a resolved with care and fluidssee above Hypoxia 270018436 R09.02 see above Pneumothorax 22879478 J9 3.9 pt with pneumothor ax and felt closed rib frac per summarytyl prn painmonito r for reoccurenc e Closed fra cture of rib 38000881 S22.39XD felt resolvedpt with pneumothor ax and felt closed rib frac per summarytyl prn painmonito r for reoccurenc e, resp distress Asthenia 37511087 R53.1 pt with asthenia sp found downPT OT eval and treatmonit or Traumatic hematuria 9556 7008 R31.9 Hematuria resolved, thought to be from traumatic insertion. He was seen by Urology, and had CBI.Crowder catheter was removed 06/21, voiding well sincemonit or for diff urination Impaired cognition 16208 6002 R41.89 possible dementia? cognition improved during hospitaliz ationfelt related to metabolic encephalop athyBIMS 07/23, monitor for improvemen the is very clear about full code for [facility] monitor for need to invoke with met encephalop athy improvingm onitor for changes Metabolic encephalopathy 69950444 G93.41 possible dementia? cognition improved during hospitaliz ationfelt related to metabolic encephalop athycontqu etiapine 12.5 mg po bid prn agitationt hiamine 100 mg po dialy started in hosptrazod one 50 mg po at supper dailymonit or for changes Acute-on-c hronic renal failure 106644709 N17.9 SUSHILA resolved with tx and fluidslabs as aboveavoid nephrotoxi c medsmonito r with history of CKDbmp weekly Hypertensive disorder 38 124478 I10 pt with hypotensio n initially with bradycardi a with fluid overload in the hospitalwa s seen by cards in hosp-note: Was on Metoprolol per cardiology recs for NSVT and pAfib, but was bradycardi camlodipin e 10 mg po dailymetop rolol reduced dose to 25mg BID with holding parameters Eliquis 5 mg BID per cardiology for afiblasix 40 mg po dailymonit or vs with bp daily x 2 weeksadjus t as needed Type 2 saji betes mellitus 22537132 E11.9 BS stable 115-214con tinsulin sliding scalemonit or BS tid and acmonitor Ha1c prn Hyperlipidemia 17207473 E78.5 atorvastat in 40 mg po qhsmonitor Coronary arteriosclerosis 73950261 I25.10 atorvastat in 40 mg po qhsmetopro lol reduced dose to 25mg BID with holding parameters Eliquis 5 mg BID per cardiology for afibfollow with cards outpt prnmonitor Electrolyte imbalance 10 3863669 E87.8 imbalance of electrolyt es in hosppotass ium phosphates packet po bid 280-160-25 0 MGmonitor bmp weekly Bradycardia 99724681 R00 .1 bradycardi a with VT, SVT and afibmetopr olol reduced to 25 mg po bidmonitor for reoccurenc e, vitalsbmp weekly x3 weeks Thyroid st imulating hormone level above reference range 466696167 R94.6 tsh elevated in hosp free t 4 0.73, tsh 8.38unclea r if hx of thyroid disease or newnot on meds at this timewill recheck tsh and free t4 next weekmonito r hr and bp daily x 2 weeks Neck pain 65959291 M54.2 reports some mid neck painxray done in hospital start lidocaine patch daily in amtyl prnmonitor Cigarette smoker 8229607 7 F17.210 reports he is a smoker for >12yrs and is quittinghe would like NRT patch, reports urges to smoke7 mg nicotine patch daily, off at night, started on 06/26 heremonito r for need Falls 344976847 R29.6 found on ground with fall on 06/30 no injuriessu pportive carept ot eval and treatwalke r or cane at baselinemo nitor [id number] ALEC LIRA NP [address] [place] [address] 07/02/2024 08:52:00 07/03/2024 11:47:02 Pneumonia 205904713 J18.9 felt likely due to aspiration pna with acute resp failure, septic shock, hypoxia, and pneumothor ax required icu careresolv ed with abx, weaned off J7jfjlsiva l 2 puffs qid prn available for SOB, coughRefer red to [employer] due to concern of aspiration Continue modified diet, thin liquids; advance as honey.monito r cbc weekly to trend for infection - does not appear order is in place, will order q mon. x 3monitor for resp distress, vitals, reoccurenc e [place] 478281564 R29.6 Found on ground with fall on 06/30 no injuriesWo rking with PT OTMonitor safety Acute resp iratory failure 79115965 J96.00 see above Septic shock 85178645 R6 5.21 resolved and hypothermi a resolved with care and fluidssee above Hypoxia 884671728 R09.02 see above Pneumothorax 37366701 J9 3.9 pt with pneumothor ax and felt closed rib frac per summarytyl prn painmonito r for recurrence Closed fra cture of rib 02741346 S22.39XD felt resolvedpt with pneumothor ax and felt closed rib frac per summarytyl prn painmonito r for reoccurenc e, resp distress Asthenia 14097645 R53.1 Very deconditio eryn due to hospitaliz ation and acute illnessPT OT eval and treatGoal is to return home. Traumatic hematuria 9556 7008 R31.9 Hematuria resolved, thought to be from traumatic insertion. He was seen by Urology, and had CBI.Crowder catheter was removed 06/21, voiding well sincemonit or for diff urination Impaired cognition 69592 6002 R41.89 possible dementia? cognition improved during hospitaliz ationfelt related to metabolic encephalop athyBIMS 07/23, monitor for improvemen the is very clear about full code for molstwill monitor for need to invoke with met encephalop athy improvingm onitor for changes Metabolic encephalopathy 01217908 G93.41 possible dementia? cognition improved during hospitaliz ationfelt related to metabolic encephalop athycontqu etiapine 12.5 mg po bid prn agitationt hiamine 100 mg po dialy started in hosptrazod one 50 mg po at supper dailymonit or for changes Acute-on-c hronic renal failure 815287016 N17.9 SUSHILA resolved with tx and fluidsNo lab order seen in [facility], will add BMP q wed. x 3avoid nephrotoxi c medsmonito r with history of CKDbmp weekly Hypertensive disorder 38 141906 I10 pt with hypotensio n initially with bradycardi a with fluid overload in the hospitalwa s seen by cards in hosp-note: Was on Metoprolol per cardiology recs for NSVT and pAfib, but was bradycardi cMetoprolo l reduced dose to 25mg BID with holding parameters Amlodipine 10 mg po dailyLasix 40 mg po dailymonit or vs with bp daily x 2 weeksadjus t as needed Type 2 saji betes mellitus 58935568 E11.9 BS stable, readings mostly 100scontin sulin sliding scalemonit or BS tid and acmonitor Ha1c prn Hyperlipidemia 12754130 E78.5 atorvastat in 40 mg po qhsmonitor Coronary arteriosclerosis 55770080 I25.10 atorvastat in 40 mg po qhsmetopro lol reduced dose to 25mg BID with holding parameters Eliquis 5 mg BID per cardiology for afibLasix and amlodipine for BP controlfol low with cards outpt prnmonitor Electrolyte imbalance 10 9720631 E87.8 imbalance of electrolyt es in hosppotass ium phosphates packet po bid 280-160-25 0 MGmonitor bmp weekly Bradycardia 65891364 R00 .1 bradycardi a with VT, SVT and afibmetopr olol reduced to 25 mg po bidcontinu e eliquis 5 mg bid for ACmonitor for recurrence , vitalsbmp weekly x3 weeks Thyroid st imulating hormone level above reference range 329223000 R94.6 tsh elevated in hosp free t 4 0.73, tsh 8.38unclea r if hx of thyroid disease or newnot on meds at this timewill recheck tsh and free t4 next weekmonito r hr and bp daily x 2 weeks Neck pain 57614465 M54.2 reports some mid neck painxray done in hospital started lidocaine patch daily in amtyl prnmonitor Cigarette smoker [id number] 7 F17.210 reports he is a smoker for >12yrs and is quittinghe would like NRT patch, reports urges to smoke7 mg nicotine patch daily, off at night, started 06/26 heremonito r for need to continue [id number] Desean Galvez MD [address] [address] 07/03/2024 13:35:04 07/04/2024 10:58:48 Metabolic encephalopathy 17661138 G93.41 see HPIimpaire d cognition felt secondary to septic shock with question of underlying dementiamo nitor level of insightpsy ch eval prnrequire d seroquel in hospital Pneumonia 786460349 J15. 8 respirator y failure due to pneumonian ow completed Abxmonitor respirator y status with recent pneumothor ax Falls 968193377 R29.6 [facility] erapy followingm onitor fall risk Septic shock 12742729 R6 5.21 secondary to pneumonian ow completed Abx Closed fra cture of rib 78098470 S22.39XD noted on imaging age indetermin atemonitor for pain and respirator y function Asthenia 59703119 R53.1 PT OT eval and treatmonit or fall risk and need for increased support in community Impaired cognition 23839 6002 R41.89 see abovemonit or need to invoke Acute-on-c hronic renal failure 409192143 N17.9 ARF on CRFmonitor renal functionav oid nephrotoxi c meds as ablenephro consult prn Hypertensive disorder 38 064570 I10 norvasc 10 mg qdmetoprol ol 25 mg bidlasix 40 mg qdmonitor bp with metoprolol dose adjusted Type 2 saji betes mellitus 71717716 E11.9 carrying dxcurrentl y on SSmonitor blood glucose Hyperlipidemia 38837607 E78.49 lipitor 40 mg qd continued Coronary arteriosclerosis 65731190 I25.10 hx of cardiac arrestmeto prolol 25 mg bidlipitor 40 mg qdon eliquis for a fibmonitor for sxupdate cards with concerns Bradycardia 87757530 R00 .1 eval by cards in hospital with metoprolol dose reduced now onmetoprol ol 25 mg bidmonitor rateupdate cards with concerns Thyroid st imulating hormone level above reference range 936658837 R94.6 recent elevated tshnot on synthroidr epeat in 4 weeks [id number] ALEC LIRA NP [facility] [address] [place] [address] 07/09/2024 12:28:47 07/10/2024 10:47:27 Pneumonia 716846304 J18.9 [place] likely due to aspiration pna (also with acute resp failure, septic shock, hypoxia, and pneumothor ax requiring icu care)Resol kurt with abx, weaned off X4Tybavfrb l 2 puffs qid prn remains available for SOB, cough - has not neededRefe rred to [employer] due to concern of aspiration Continue modified diet, thin liquids; advance as honey.WBC now WNRmonitor for resp distress, vitals, reoccurenc e Falls 696216450 R29.6 Found on ground with fall on 06/30 no injuriesWo rking with PT OTMonitor safety Pneumothorax 67543215 J9 3.9 pt with pneumothor ax and felt closed rib frac per summarytyl prn painmonito r for recurrence Closed fra cture of rib 62481512 S22.39XD felt resolvedpt with pneumothor ax and felt closed rib frac per summarytyl prn painmonito r for reoccurenc e, resp distress Asthenia 55447661 R53.1 Very deconditio eryn due to hospitaliz ation and acute illnessPT OT eval and treatGoal is to return home. Impaired cognition 01130 6002 R41.89 possible dementia? cognition improved during hospitaliz ationfelt related to metabolic encephalop athyBIMS 07/23, monitor for improvemen the is very clear about full code for [facility] monitor for need to invoke with met encephalop athy improvingm onitor for changes Metabolic encephalopathy 59510751 G93.41 possible dementia? cognition improved during hospitaliz ationfelt related to metabolic encephalop athycontqu etiapine 12.5 mg po bid prn agitation, will renew today for another 14 days and re-evalthi amine 100 mg po dialy started in hosptrazod one 50 mg po at supper dailyUncle ar as to why seroquel 12.5 mg q HS added on 07/03, no documentat ion to support this. Will stop as already has prn seroquel order in place. Monitor use and effect.mon itor for changes Acute-on-c hronic renal failure 130429902 N17.9 SUSHILA resolved with tx and fluidsChec k BMP q wed. x 3, add Phos level as still on K and Na Phosphate packet bidavoid nephrotoxi c medsmonito r with history of CKDMaintai n hydration Hypertensive disorder 38 596325 I10 VSS.Meds adjusted in hosp. per CardsConti nue:Metopr olol 25mg BID with holding parameters (reduced dose)Amlod ipine 10 mg po dailyLasix 40 mg po dailymonit or vs with bp daily x 2 weeksadjus t as needed Type 2 saji betes mellitus 29549005 E11.9 BS stable, readings mostly 100scontin sulin sliding scalemonit or BS tid and acmonitor Ha1c prn Hyperlipidemia 08811382 E78.5 atorvastat in 40 mg po qhsmonitor Coronary arteriosclerosis 87421920 I25.10 atorvastat in 40 mg po qhsmetopro lol reduced dose to 25mg BID with holding parameters Eliquis 5 mg BID per cardiology for afibLasix and amlodipine for BP controlfol low with cards outpt prnmonitor Electrolyte imbalance 10 9156499 E87.8 imbalance of electrolyt es in hosppotass ium phosphates packet po bid 280-160-25 0 MGmonitor bmp weekly, add Phos level as well. Bradycardia 31427306 R00 .1 bradycardi a with VT, SVT and afibmetopr olol reduced to 25 mg po bidcontinu e eliquis 5 mg bid for ACmonitor for recurrence , vitalsbmp weekly x3 weeks Thyroid st imulating hormone level above reference range 858837697 R94.6 tsh elevated in hosp free t 4 0.73, tsh 8.38unclea r if hx of thyroid disease or newnot on meds at this timeRechec k tsh and free t4 on 07/03 - still elevated 8.67, FT4 1.16.Will not add po supplement ation at this time.Can consider trending labs along with a FT3 if stays long term care pharmacist Neck pain 57714954 M54.2 reports some mid neck painxray done in hospital started lidocaine patch daily in amtyl prnmonitor Cigarette smoker 8410218 7 F17.210 reports he is a smoker for >12yrs and is quittinghe would like NRT patch, reports urges to smoke7 mg nicotine patch daily, off at night, started 06/26 heremonito r for need to continue [id number] Nayely Lucas, CECILY [facility] [address] [place] [address] 07/10/2024 13:19:10 07/11/2024 10:21:37 Pneumonia 947019368 J18.9 [place] likely due to aspiration pna (also with acute resp failure, septic shock, hypoxia, and pneumothor ax requiring icu care)Resol kurt with abx, weaned off E6Mfbzczom l 2 puffs qid prn remains available for SOB, cough - has not needed hereReferr ed to SHEET MET[employer]OR due to concern of aspiration Continue modified diet, thin liquids; advance as honey.WBC WNR on 07/03will follow with labs this weekmonito r for resp distress, vitals, reoccurenc ecbc and bmp [place] 369887488 R29.6 Found on ground with fall on 06/30 no injuriesWo rking with PT OTMonitor safety Pneumothorax 00440936 J9 3.9 pt with pneumothor ax and felt closed rib frac per summarytyl prn painmonito r for recurrence Closed fra cture of rib 77649832 S22.39XD felt resolvedpt with pneumothor ax and felt closed rib frac per summary, no complicati ons notedtyl prn painmonito r for reoccurenc e, resp distress Asthenia 88538534 R53.1 Very deconditio eryn due to hospitaliz ation and acute illnessPT OT eval and treatGoal is to return home. Impaired cognition 46212 6002 R41.89 possible dementia? cognition improved during hospitaliz ationfelt related to metabolic encephalop athyBIMS 07/23, monitor for improvemen t, repeat he is very clear about full code for rob monitor for need to invoke with met encephalop athy improvingm onitor for changes Metabolic encephalopathy 28080581 G93.41 possible dementia? cognition improved during hospitaliz ationfelt related to metabolic encephalop jdwfeibo10 /2quetiapi ne 12.5 mg po bid prn agitation for 14 days and re-evalthi amine 100 mg po dialy started in hosptrazod one 50 mg po at supper daily(pt was on serequel 12.5 mg po bid and qhs sched which were dc'd today, unclear where this order is from)will leave prn Acute-on-c hronic renal failure 037086173 N17.9 SUSHILA resolved with tx and fluidsChec k BMP q wed. x 3, add Phos level as still on K and Na Phosphate packet bidavoid nephrotoxi c medsmonito r with history of CKDMaintai n hydration Hypertensive disorder 38 011232 I10 vitals stableMeds adjusted in hosp. per CardsCont: Metoprolol 25mg BID with holding parameters (reduced dose)Amlod ipine 10 mg po dailyLasix 40 mg po dailymonit or vs with bp daily x 2 weeksadjus t as needed Type 2 saji betes mellitus 97010696 E11.9 BS 98-201, overall well controlled continsuli n sliding scalemonit or BS tid and acmonitor Ha1c prn Hyperlipidemia 82663020 E78.5 atorvastat in 40 mg po qhsmonitor Coronary arteriosclerosis 47352316 I25.10 atorvastat in 40 mg po qhsmetopro lol reduced dose to 25mg BID with holding parameters Eliquis 5 mg BID per cardiology for afibLasix and amlodipine for BP controlfol low with cards outpt prn, will need appt outptmonit or Electrolyte imbalance 10 4107875 E87.8 imbalance of electrolyt es in hospcontpo tassium phosphates packet po bid 280-160-25 0 MGmonitor bmp weekly, add Phos level as well.will request labs baylee Bradycardia 49835227 R00 .1 bradycardi a with VT, SVT and afibmetopr olol reduced to 25 mg po bid in hospcontin ueeliquis 5 mg bid for ACmonitor for recurrence , vitalsbmp weekly x3 weeks Thyroid [address] imulating hormone level above reference range 902023152 R94.6 tsh elevated in hosp free t 4 0.73, tsh 8.38unclea r if hx of thyroid disease or newnot on meds at this timeRechec k tsh and free t4 on 07/03 - still elevated 8.67, FT4 1.16.Will not add po supplement ation at this time.Can consider trending labs along with a FT3 if stays long term care pharmacist Neck pain 20933705 M54.2 resolvedre ports some mid neck painxray done in hospitalco ntlidocain e patch daily in amtyl prnmonitor Cigarette smoker 2049095 7 F17.210 reports he is a smoker for >12yrs and is quitting7 mg nicotine patch daily, off at nightmonit or for need to continue Septic shock 26382645 R6 5.21 secondary to pneumonian ow completed Abxcbc and bmp baylee [facility] Concerns Section Related Observation LastModified by Organization Detai ls LastModified Time None Recorded Concern Status LastModified by Organization Details LastModified Time None Recorded Advance Directives Directive N: Payers Encounter Date Sequence Insurance Name Policy Number Policy Pinzon Covered Member ID Pinzon Member ID Guarantor Name 07/01/2024 1 [facility] - DOS ON OR AFTER 2023 - MEDICARE [place]VANTAGE [place]/ADV ANTAGE - PPO) Albert Posada [id number] Albert Posada 07/02/2024 1 [facility] - DOS ON OR AFTER 2023 - [place]V ANTAGE - [place]PO) Albert Posada [id number] Albert Posada 07/03/2024 1 [employer] - DOS ON OR AFTER 2023 - [place]V ANTAGE - [place]PO) Albert Posada [id number] Albert Posada 07/09/2024 1 [employer] - DOS ON OR AFTER 2023 - [place]V ANTAGE - PPO) Albert Posada [id number] Albert Posada 07/10/2024 1 [facility] [employer] - DOS ON OR AFTER 2023 - [place]V ANTAGE - PPO) Albert Posada [id number] Albert Posada Notes Date Note Type Note Provider Name and Address Organization Details Recorded Time 07/01/2024 text/html Pt is seen for a n acute visit today. On 06/30 he was found on the floor per nursing. No injuries noted and vitals and neuros intact. On exam, Albert is seen in the activity room today in NAD. He denies any pain or decreased ROM. He states he is good . He has scabbed and dry upper extremities and ordered for vaseline protective ointment daily until healed. He denies any concerns. notes from recent admission:Albert is a 74 yo male with pmh of coronary artery disease, CKD, Type 2 diabetes, with documented hx of PEA arrest who presented [place] [facility] [place] [facility] 1 trauma after being found down at home unconscious with blood with with unknown downtime felt to be from pneumonia, septic shock, SUSHILA, NSVT/VT, and delirium.His hospital workup and plan includes:He was found Hypotensive 88/52, got 2 doses of atropine for sinus ivelisse in the 30's, after 2 atropine doses his systolic was 110, and . Also received 250 mL NS. He was saturating 94-95% on 4L NC. POC 157 . Signs of trauma noted were dried blood around the mouth and scattered skin tears. He was also found to be 84 degrees.Imaging: CXR, CT head & cervical neck, CT angio head & neck and CT abd/pelvis negative, CT chest positive for multifocal pneumonia and rib fractures of undetermined age. Hypoxia, acute resp failure, and septic shock felt to be from asp pneumonia resolved and finished antibiotics for PNA and behavioral problems resolved and now on RA. CT scan showing multifocal opacities and he was started on ceftriaxone and doxycycline MRSA negative. Sputum cultures: Routine respiratory diana, moderate growth. Blood cultures are NTD. Septic shock resolved and Completed Augmentin PO BID 7 days course. Metabolic encephalopathy resolved and no signs of documented Dementia. Cazadero could be multifactorial delirium, unclear if superimposed on dementia. Seems to have had recent cognitive decline outpatient when discussed with HCP Daniela in hospital; they have noticed changes in mental state for the past few months, forgetful however with no history of agitation. Suppertime Trazodone with as needed Seroquel has worked well, No behavioral problems in >48 hours prior to dc.NSVT, VT, and pafib noticed on Telemetry strips were reviewed and findings were consistent with ventricular VT from LVOT tract per cardiology consult note.Patient close follow-up with cardiology for a cardiac MRI and EP evaluation.Echocardiog clarice : EF 50-55 %. No obvious wall motion abnormalities seen on limited views. There is borderline pulmonary hypertension.- Was on Metoprolol per cardiology recs for NSVT and pAfib, but been bradycardic, reduced dose to 25mg BID with holding parameters, better toleratedEliquis 5 mg BID per cardiology for afibAcute kidney failure resolved, renal function back to baselineDiabetes with hypoglycemia episodes due to poor PO intake. Glycemia currently stable, no recurrent hypoglycemia on SS insulin.Hematuria resolved, thought to be from traumatic insertion. He was seen by Urology, and had CBI. Crowder catheter was removed 06/21, voiding well sinceMultiple fractures of ribs with traumatic pneumothorax continue with Tylenol PRNHypertension blood pressure stable at the moment. Initially meds held due to hypotensive episodes in the ICU. now continued on amlodipine and Lasix Ultimately, multiple medications changes and adjustments from prior home meds were made per dc summary. Cordon: high fall riskBIMS 07/23He would like to be a full code. Nayely Lucas NP [address] [facility], [address], [place], [address], [facility] Slated 07/01/2024 19:52:33 07/02/2024 text/html Skyler is seen today for an acute visit. He is a 74 yo male, recently admitted to [facility] from the hospital for continued care and rehab after an admission related to a fall, infection, SUSHILA, NSVT/VT, and delirium. Since admission here, he has fallen once on 06/30, found on the floor per nursing. No injuries noted and vitals and neuros intact.Working with rehab, currently OOB in w/c.Alert, NAD, says he wants to go home today. He is feeling fine denies any complaints, in good spirits. VSSBS mostly 100s.No labs yet this week. No issues or concerns per nsg. Cordon: high fall riskBIMS 07/23 PMH: coronary artery disease, CKD, Type 2 diabetes, with documented hx of PEA arrest, afib, bradycardia, pnaFull code. ALEC LIRA NP [address] [facility], [address], [place], [address], [facility] 07/02/2024 13:24:14 07/03/2024 text/html Patient is a 74 yo male admit from hospital presenting after being found down at home. Trauma team involved in hospital. Dx with septic shock secondary to pneumonia with ARF. Bradycardic on arrival. Imaging positive for pneumonia and rib fx. Initially covered with rocephin and doxy then completed augmentin. Noted metabolic encephalopathy with question of underlying dementia required seroquel. Eval by cards on metoprolol with a fib, noted bradycardia with dose reduced. ARF improved with supportive care Mongolian speaking motion and time study teacher present however patient can communicate in hungarian PMH significant forcad hx cardiac arrestcrfdma fibhtn admit to facility for continued care and therapy eval and treat Desean Galvez MD [address] [facility], [address], [place], [address], [facility] 07/03/2024 14:16:59 07/09/2024 text/html Skyler is seen today for an acute visit. He is a 74 yo male, recently admitted to [facility] from the hospital for continued care and rehab after an admission related to a fall, infection, SUSHILA, NSVT/VT, and delirium. Since admission here, he has fallen once on 06/30, found on the floor per nursing. No injuries noted and vitals and neuros intact.He continues to work with rehab, making progress. VSSBS mostly 100s.Labs stable. Repeat TSH remains sl. elevated.MAR reviewed, is now on sched. seroquel at HS, started 07/03, unclear as to why as he is also on HS trazodone and has prn seroquel order in place.No nsg. notes or Psych consult seen in MAR regarding this med change. Upon exam, Albert is resting in bed, alert, in good spirits. Feeling well, denies any complaints, still eager to go home. No issues or concerns per nsg. today Cordon: high fall riskBIMS 07/23 PMH: coronary artery disease, CKD, Type 2 diabetes, with documented hx of PEA arrest, afib, bradycardia, pnaFull code. ALEC LIRA NP [address] [facility], [address], [place], [address], [facility] 07/09/2024 13:06:58 07/10/2024 text/html Albert is seen t [facility] for an acute visit. PMH: coronary artery disease, CKD, Type 2 diabetes, with documented hx of PEA arrest, afib, bradycardia, pna Pt is a 74 yo male, recently admitted to [facility] from the hospital for continued care and rehab after an admission requiring ICU care related to a fall, infection, SUSHILA, NSVT/VT, and delirium. He is inquiring about going home and found a piano case maker to help at home care in which Viktoria is at bedside. After reviewing his recent hospitalization and needs with Albert and SOCIAL ECONOMIST all in agreement to plan for discharge on Monday when SOCIAL ECONOMIST, nursing, PT/OT, and pcp and cardiology appts can be set up. This will give him a few more days to be monitored with recent changes in meds and vitals aswell as to work with therapy to get stronger. baking factory worker at bedside and in agreement. Since admission here, he has fallen once on 06/30, found on the floor per nursing. No injuries noted and vitals and neuros intact. Overall, he continues with therapy making gains and getting stronger since significant hospitalization. On exam, Albert is lying in bed. He states he feels okay . He denies any difficulty breathing, shortness of breath, or other concerns. He is falling asleep as he very fatigued today. Cordon: high fall riskBIMS 07/23 Full code. Nayely Lucas NP [address] [facility], [address], [place], [address], [facility] 07/10/2024 19:21:30
--- OUTSIDE RECORDS SUMMARY | 2024-10-30 12:04 | XMS_ITS | Patient Health Record ---
Author Organization [facility] Address [address] [place] [address] Care Team Providers Care Director Radiation Oncology Name Role Phone Kristi Warren Primary Care Provider Fan Simons Unavailable [phone] Allergies No Known Allergies Reason For Referral No Information Medications Medication SIG (Take, Route, Frequency, Duration) Notes Start Date End Date Status Pravastatin Sodium 40 MG 1 tablet Orally Once a day for 30 day(s) Active traZODone HCl 100 MG 1 tablet at bedtime Orally Once a day for 30 day(s) Active Vitamin D2 Active Enalapril Maleate 20 MG 1 tablet Orally Once a day for 30 day(s) Active hydroCHLOROthiazide 12.5 MG 1 tablet in the morning Orally Once a day for 30 day(s) Active Iron Active Extra Depth Orthopedic Shoes (1 Pair) with Customized Heat Molded Multidensity Innersoles (3 Pair) as directed Dx: NIDDM/PVD (E11.59), Hammertoe Foot Deformity (M20.41,M20.42), Preulcerative Skin Lesion(s) (L85.1) Active Losartan Potassium 50 MG 1 tablet Orally Once a day for 30 day(s) Active Ciclopirox Olamine 0.77 % 1 application to affected area Externally to feet Twice a day for 30 days Active amLODIPine Besylate 5 MG 1 tablet Orally Once a day for 30 day(s) Active zzzCompression Stockings 20-30mm Hg . . . for . Active Aspirin 81 MG 1 tablet Orally Once a day for 30 day(s) Active Immunizations Vaccine Route Administration Date Status Comme nts COVID-19 Pfizer BioNTech Vaccine Unknown 11/19/2020 Adm inistered #2 12/10/20 Influenza Unknown 07/09/2020 Administered Social History Tobacco Use: Social History Observation Description Date Details (start date - stop date) Current Smoker 10/09/1964 - NA Tobacco Use/Smoking Question Answer Notes Are you a: current smoker When did you start smoking? 10/09/1964 How often do you smoke cigarettes? some days, bu t not every day How many cigarettes a day do you smoke? 5 or les s Alcohol Screen Question Answer Notes Did you have a drink containing alcohol in the p ast year? No Points 0 Interpretation Negative Tobacco use other than smoking: Question Answer Notes Are you an other tobacco user? No Problems Problem Type SNOMED Code ICD Code Onset Dates Problem Status W/U Status Risk Notes Problem Acquired hammer toe of right foot (60572745003013 05) Other hammer toe(s) (acquired), right foot (M20.41) Active confirmed Problem Type 2 diabetes mellitus with peripheral angiopathy (605675757) Type 2 diabetes mellitus with diabetic peripheral angiopathy without gangrene (E11.51) Active confirmed Problem Acquired hammer toe of left foot (90102145763604 03) Other hammer toe(s) (acquired), left foot (M20.42) Active confirmed Encounters Encounter Location Date Provider Diagnosis [facility] [address] [place] [address] 12/25/2023 Fan Escobar Plan Of Treatment Pending Test Test Name Order Date [id number] NAIL, 6 OR MORE 09/14/2020 [id number] NAIL, 6 OR MORE 12/14/2020 77427-DUYUADY NAIL, 6 OR MORE 02/22/2021 17979-STTNBLM NAIL, 6 OR MORE 04/29/2021 81212-HMGJBTH NAIL, 6 OR MORE 08/11/2021 45836-KLOWKWJ NAIL, 6 OR MORE 10/20/2021 74858-BGGYYRC NAIL, 6 OR MORE 12/30/2021 49705-PZCZYXZ NAIL, 6 OR MORE 03/23/2022 46131-ZICSEPF NAIL, 6 OR MORE 06/06/2022 88089-ZYSX SKIN LESIONS, OVER 4 06/06/20 22 53977-AWJP SKIN LESIONS, OVER 4 12/31/19 39037-GLIW SKIN LESIONS, OVER 4 03/23/20 22 12269-PZOO SKIN LESIONS, OVER 4 10/20/19 22 73810-KRIH SKIN LESIONS, OVER 4 08/11/20 21 60617-BOKP SKIN LESIONS, OVER 4 04/29/20 21 15089-ZAWJ SKIN LESIONS, OVER 4 02/23/20 21 37276-MYLA SKIN LESIONS, OVER 4 12/15/19 21 39499-TQJC SKIN LESIONS, OVER 4 09/14/20 20 Insurance Providers Payer Name Payer Address Payer Phone Subscriber Number Group Number Insured Name Patient Relationship to Insured Coverage Start Date Coverage End Date [facility] [employer] Claims [address] [place] [phone] [id number] Albert Baeza Self - patient is the insured Medical (General) History Medical History History ICD Code Diabetic Surgical History Surgery Date(Month/Year) back surgery Hospitalization History Reason Date(Month/[facility]
--- OUTSIDE RECORDS SUMMARY | 2024-10-30 12:04 | XMS_ITS ---
Author Organization [facility] Address [address] [place] [address] Care Team Providers Care Hand Tool Lapper Name Role Phone Kristi Warren Primary Care Provider Fan Simons Unavailable [phone] REASON FOR VISIT Bk SAME day only Encounters Encounter Location Date Provider Diagnosis [facility] [address] [place] [address] 12/25/2023 Fan Escobar Plan Of Treatment No Information Progress Notes * Albert STYLESDOB:1950 ( 73 yo M)Acc No.[id number]:12/25/2023 Patient:?Albert Styles :1950???Age:73 Y???Sex:Male Address:[address] [place] [address], [address], [place], [address] * true * Date:? Generated for Danica patterson/Angelique/eTransmitting on:?10/30/2024 12:03 PM EST
== END 2024-10-30 11:30 | disposition home or self-care (01) ==
PROVIDERS: PCP Nurse Practitioner Primary Care; Visit Provider Internal Medicine
DX: I25.10 Atherosclerotic heart disease of native coronary artery without angina pectoris (principal); I47.10 Supraventricular tachycardia, unspecified; I48.0 Paroxysmal atrial fibrillation; I10 Essential (primary) hypertension; E78.5 Hyperlipidemia, unspecified; M79.89 Other specified soft tissue disorders
CPT/HCPCS: 99214

== ENCOUNTER → 2024-10-30 10:45 | Outpatient (BNVA) | payer OTHER, SELFPAY | PROVIDERS: Visit Provider Internal Medicine | DX: I25.10 Atherosclerotic heart disease of native coronary artery without angina pectoris (principal); I47.10 Supraventricular tachycardia, unspecified; I48.0 Paroxysmal atrial fibrillation; I10 Essential (primary) hypertension; E78.5 Hyperlipidemia, unspecified; M79.89 Other specified soft tissue disorders | CPT/HCPCS: 99212 ==

== ENCOUNTER 2025-03-31 11:23 | Outpatient (REF) | payer OTHER, SELFPAY ==
[2025-03-31 11:44] LABS: MANUAL DIFF FLAG NO
[2025-03-31 12:07] LABS: Basophils Percent Auto 0.4 % (0-2); Eosinophils Absolute Auto 0.1 X10*3/uL (0.0-0.4); Eosinophils Percent Auto 1.3 % (0-4); Hematocrit 43.9 % (42.0-52.0); Hematocrit 44.1 % (42.0-52.0); Hemoglobin 15.6 g/dl (14.0-18.0); Imm Gran Abs Auto 0.03 X10*3/uL (0.00-0.03); Imm Gran Pct Auto 0.4 % (0.0-0.4); Lymphocytes Absolute Auto 2.2 X10*3/uL (1.2-4.9); Lymphocytes Percent Auto 28.8 % (20-40); Mean Corpuscular HGB Conc 35.4 g/dl (31.0-36.0); Mean Corpuscular HGB Conc 35.5 g/dl (31.0-36.0); Mean Corpuscular Hemoglobin 34.5 pg (27.0-33.0); Mean Corpuscular Hemoglobin 34.7 pg (27.0-33.0); Mean Corpuscular Volume 97.1 fL (80.0-98.0); Mean Platelet Volume 9.8 fL (9.4-12.4); Monocytes Absolute Auto 0.6 X10*3/uL (0.1-1.2); Monocytes Percent Auto 7.7 % (2-11); Neutrophils Absolute Auto 4.6 x10*3/uL (2.0-8.3); Neutrophils Percent Auto 61.4 % (45-73); Platelet Count 169 X10*3/uL (160-400); Platelet Count 175 X10*3/uL (160-400); Red Blood Count 4.52 X10*6/uL (4.60-5.80); Red Cell Distribution Width 14.2 % (11.0-16.0); White Blood Count 7.3 X10*3/uL (4.8-10.8); White Blood Count 7.5 X10*3/uL (4.8-10.8)
[2025-03-31 12:31] LABS: Creatinine Urine 85.49 mg/dL; Microalbum/Creatinine Ratio Ur 19.8 ug/mg cr (<30)
[2025-03-31 12:37] LABS: Alanine Aminotransferase 41 U/L (0-40); Albumin Level 3.6 g/dL (3.5-5.0); Alkaline Phosphatase 83 U/L (39-117); Aspartate Amino Transferase 46 U/L (5-37); Bilirubin Direct 0.5 mg/dL (0.0-0.5); Bilirubin Total 1.6 mg/dL (0.0-1.0); C Reactive Protein < 0.04 mg/dL (< or = 0.50); Cholesterol 86 mg/dL (<200); HDL Cholesterol 44 mg/dL (>40); LDL Cholesterol Calculated 30 mg/dL (<100); Total Protein 5.8 g/dL (6.5-8.0); Triglycerides 64 mg/dL (<150)
[2025-03-31 12:51] LABS: HIV AB/AG Nonreactive (Nonreactive); ~HepC Num1 0.12 S/CO (0.00-0.79); ~Hepatitis C Antibody Nonreactive (Nonreactive)
[2025-03-31 12:52] LABS: Erythrocyte Sedimentation Rate 2 MM/HR (0-15)
[2025-03-31 12:53] LABS: Prostate Specific Antigen 0.42 ng/mL (<0.05-4.0)
[2025-03-31 12:54] LABS: TSH reflex Free T4 2.87 uIU/mL (0.32-4.0)
--- OUTSIDE RECORDS SUMMARY | 2025-03-31 13:04 | XMS_ITS | Encounter Summary ---
Author Organization [employer] Address [address] [place] [address] Care Team Providers Care Casino Investigator Name Role Phone Kristi Warren Primary Care Provider Encounter Details Date Type Department Care Team (Late st Contact Info) Description 08/12/2024 Telephone [facility] [address] [place], [place] [phone] Kristi Warren ANP [address] [place] [address] Social History Tobacco Use Types Packs/Day Years [...] documented in this encounter Plan of Treatment Upcoming Encounters Date Type Department Care Team (Late st Contact Info) Description 06/12/2025 1:00 PM EDT Office Visit [facility] [address] [place] [address] Kristi Warren ANP [address] [place] [address] documented as of this encounter Goals Goal Patient Goal Type Associated Problems Recent Progress Patient-Stated? Author Blood Pressure < 140/90 Blood Pressure 80/60( 025 2:44 PM EDT) No Mike Harris, PharmD Hemoglobin A1c < 7.5 Result Component 6.5( 3:05 PM EDT) No Mike Harris, PharmD documented as of this encounter Visit Diagnoses Not on filedocumented in this encounter Additional Health Concerns Assessment Noted Time PHQ-9 Depression Total Score: 13 024 1:24 PM EDT documented as of this encounter Care Teams Casino Investigator Relationship Specialty Start Date End Date Kristi Warren ANP [address] [place] [address] PCP - General Family Medicine 03/24/20 [facility] 08/09/24 12/19/24 [facility] 12/09/24 documented as of this encounter
[2025-04-01 12:10] LABS: Anion Gap 15 (12-20); Blood Urea Nitrogen 9 mg/dL (9-16); Calcium 8.7 mg/dL (8.4-10.2); Carbon Dioxide 30 mmol/L (22-29); Chloride 99 mmol/L (96-108); Estimated Glomerular Filt Rate > 60; Glucose Random 206 mg/dL (60-115); Potassium 3.7 mmol/L (3.3-5.1); Sodium 140 mmol/L (135-145)
[2025-04-03 21:48] LABS: Testosterone, Total 283 ng/dL (250-1100)
== END 2025-03-31 11:24 | disposition home or self-care (01) ==
LOC: HO.LAB 11:23
PROVIDERS: Absent Provider Urology; PCP Nurse Practitioner Primary Care; Visit Provider Nurse Practitioner Primary Care
DX: Z12.5 Encounter for screening for malignant neoplasm of prostate (principal); Z11.4 Encounter for screening for human immunodeficiency virus [HIV]; R63.4 Abnormal weight loss; E11.21 Type 2 diabetes mellitus with diabetic nephropathy; E29.1 Testicular hypofunction
CPT/HCPCS: 36415; 80048; 80061; 80076; 82043; 82570; 84153; 84403; 84443; 85025; 85027; 85652; 86140; 86803; 87389

== ENCOUNTER 2025-04-15 15:32 | Emergency (ER) | payer OTHER, SELFPAY ==
[2025-04-15] VITALS (8 sets, daily range): BP systolic 85–128; BP diastolic 53–95; PULSE 85–103; RESP 11–18; TEMP 36.1–36.6; O2SAT 91–95; BMI 24.2
--- NOTE | 2025-04-15 15:38 | ECG_ITS ---
Test Reason : WEAKNESS Blood Pressure : */* mmHG Vent. Rate : 85 BPM Atrial Rate : * BPM P-R Int : * ms QRS Dur : 66 ms QT Int : 394 ms P-R-T Axes : * -55 -64 degrees QTcB Int : 468 ms Atrial fibrillation with a competing junctional pacemaker with premature ventricular or aberrantly conducted complexes Abnormal ECG When compared with ECG of 08-Aug-2024 08:22, Atrial fibrillation has replaced Sinus rhythm Vent. rate has increased by 28 bpm T wave inversion now evident in Inferior leads Referred By: Dian Barrera Electronically Signed By: Matthew Durham
--- NOTE | 2025-04-15 15:54 | ED.WEAKNESS ---
HPI - Weakness General Chief complaint: Weakness Stated complaint: feeling tired Time Seen by Provider: 04/15/25 15:49 History of Present Illness ED Provider: harriet HPI Narrative: 75-year-old male presents at the request of his physician for low heart rate and low blood pressure in the office. Patient has coronary disease he is feels well and asymptomatic. Notably the patient has a history of documented PEA cardiac arrest at some point. Does not appear to have any deficits from this. He is completely asymptomatic and was for routine visit at its primary doctor. I do not see documented vital signs from the office. On arrival here pulse 85 but a regular looks like he intermittently has atrial fibrillation or premature beats. Blood pressure is 85/57 repeated quickly after that was 107/53. No headache no chest pain no other symptoms Related Data Home Medications ?Medication ?Instructions ?Recorded ?Confirmed acetaminophen 500 mg tablet 500 mg PO Q6H PRN Pain 08/12/20 10/30/24 (Tylenol Extra Strength) aspirin 81 mg tablet,delayed 81 mg PO BEDTIME 08/12/20 10/30/24 release (Adult Low Dose Aspirin) ferrous sulfate 325 mg (65 mg 325 mg PO BID 08/12/20 10/30/24 iron) tablet trazodone 100 mg tablet 200 mg PO BEDTIME 08/12/20 10/30/24 amlodipine 5 mg tablet 5 mg PO DAILY 11/19/20 10/30/24 Held on 04/16/25. Instructions: Doctor's Order blood sugar diagnostic #10 ea 03/09/21 05/15/24 pen needle, diabetic 31 gauge x #50 ea 03/09/21 05/15/2412/22 pen needle, diabetic 31 gauge x #1,200 ea 12/17/21 05/15/2402/21 (UltiCare Pen Needle) calcitriol 0.25 mcg capsule 0.25 mcg PO MOWEFR@0900 04/06/24 10/30/24 clotrimazole 1 % topical cream 1 appl topical BID 04/06/24 10/30/24 empagliflozin 25 mg tablet 25 mg PO DAILY 04/06/24 10/30/24 (Jardiance) atorvastatin 40 mg tablet 40 mg PO DAILY 10/30/24 10/30/24 metoprolol succinate 25 mg 25 mg PO DAILY 10/30/24 tablet,extended release 24 hr Previous Rx's ?Medication ?Instructions ?Recorded arm brace (Wrist Brace Large) #2 ea 08/12/20 furosemide 40 mg tablet (Lasix) 40 mg PO DAILY #90 tabs 08/26/24 Held on 04/16/25. Instructions: Doctor's Order testosterone (AndroGel) 3 pump transdermal DAILY 28 days 10/01/24 #150 grams Allergies Allergy/AdvReac Type Severity Reaction Status Date / Time No Known Allergies (No Known Allergy Verified 04/15/25 15:47 Allergies*) [facility] Past Medical History Medical History Encounter for assessment of decision-making capacity Pneumonia Encounter for medication monitoring Depression Restless leg syndrome Peripheral neuropathy Personal history of nicotine dependence History of non-ST elevation myocardial infarction (NSTEMI) (~09/2018) History of cardiac arrest (~09/2018) Other and unspecified hyperlipidemia Essential hypertension 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 Mother No problems noted. 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 Head: Atraumatic Eyes: Anicteric, Normal conjunctiva. ENT: Moist mucosa, no pallor. ? Neck: Supple. Skin: ?No observable rash or bruising on exposed or examined skin Respiratory: Breathing comfortably, No distress.Clear to auscultation bilaterally, symmetric chest expansion, No wheeze, rales, ronchi. Cardiovascular: Regular rate, very irregular rhythm. No murmurs or rub. Well perfused periphery, warm extremities. No edema. ? Abdominal: No focal tenderness. Soft, no objective distension. No palpable masses or obvious organomegaly. ?No guarding, no rebound tenderness or other peritoneal findings. : No flank tenderness. Neuro: Alert. Gross movement of all extremities intact. ? Psych: Calm. Cooperative. MSK: No grossly visible deformity. Vital signs: See flowsheet Medications Administered Discontinued Medications Generic Name Dose Route Start Last Admin Trade Name Freq PRN Reason Stop Dose Admin Sodium Chloride 1,000 mls @ 999 mls/hr 04/15/25 16:00 04/15/25 16:05 Ns IV 04/15/25 17:00 999 mls/hr .Q1H1M FARSHAD Administration Magnesium Oxide 800 mg 04/15/25 16:32 04/15/25 16:54 Magnesium Oxide 400 Mg Tablet PO 04/15/25 16:33 800 mg ONCE ONE Administration Medical Decision Making Medical Decision Making MDM Narrative: Medical Decision Making: This is a 75-year-old male with possibly transient asymptomatic bradycardia/hypotension. Oral mucosa quite dry it has been hot recently he does acknowledge not drinking enough fluid. The patient is on 40 mg Lasix unclear if he has been taking this but perhaps in combination with the heat and humidity he maybe it dehydrated as well as poor p.o. intake. No GI symptoms no anginal, anginal equivalents or other cardiac symptoms. Very irregular rhythm likely in and out of atrial fibrillation and/or flutter but he is asymptomatic from this standpoint. I wonder if the monitor in the patient's PCP office detected bradycardia that was not truly present given the significant irregularity of these beats some of which are PVCs and/or different morphology. Intravenous hydration. Clear lungs. Improved BP monitored. Patient ate a full meal of food and drank several cups of liquids in the ED felt better. Indication for admission. Preliminary Favored Differential Diagnosis: Irregular rhythm possibly transient bradycardia and/or erroneous bradycardic measurement in the office, hypotension possibly medication related and/or hypovolemia/dehydration, electrolyte derangement, over-diuresis, diabetes or cardiac complication, SUSHILA and/or medication adverse effect among additional considered etiologies Testing Interpreted Independently: ECG: Rate 85 very irregular several different morphologies of beats possibly PVCs. Underlying atrial fibrillation. No acute ischemic changes. Radiology or Lab testing Results Reviewed: Not Applicable Consults: Not Applicable Independent Historians/External Chart Reviews: Not Applicable Social Determinants of Health Impacting MDM/Planning: Not Applicable Lab Data 04/15/25 16:06 04/15/25 16:06 Labs: Lab Results 04/15/25 04/15/25 Range/Units 16:06 16:07 WBC 8.2 (4.8-10.8) X10*3/uL RBC 4.58 L (4.60-5.80) X10*6/uL Hgb 15.6 (14.0-18.0) g/dl Hct 44.5 (42.0-52.0) % MCV 97.2 (80.0-98.0) fL MCH 34.1 H (27.0-33.0) pg MCHC 35.1 (31.0-36.0) g/dl RDW 14.1 (11.0-16.0) % Plt Count 156 L (160-400) X10*3/uL MPV 9.6 (9.4-12.4) fL Immature Gran % (Auto) 0.4 (0.0-0.4) % Neut % (Auto) 56.6 (45-73) % Lymph % (Auto) 31.7 (20-40) % [place] % (Auto) 9.9 (2-11) % Eos % (Auto) 0.9 (0-4) % Baso % (Auto) 0.5 (0-2) % Lymph # (Auto) 2.6 (1.2-4.9) X10*3/uL [place] # (Auto) 0.8 (0.1-1.2) X10*3/uL Eos # (Auto) 0.1 (0.0-0.4) X10*3/uL Baso # (Auto) 0.0 (0.0-0.2) X10*3/uL Abs Immat Gran (auto) 0.03 (0.00-0.03) X10*3/uL Absolute Neuts (auto) 4.6 (2.0-8.3) x10*3/uL Absolute Nucleated RBC 0.020 H (0.0-0.012) X10*3/uL Nucleated RBC % (auto) 0.2 (0.0-0.2) /100WBC Sodium 140 (135-145) mmol/L Potassium 3.4 (3.3-5.1) mmol/L Chloride 98 (96-108) mmol/L Carbon Dioxide 33 H (22-29) mmol/L Anion Gap 12 (12-20) BUN 11 (9-16) mg/dL Creatinine 1.16 (0.5-1.4) mg/dL Estim Creat Clear Calc 49.6 Estimated GFR > 60 Random Glucose 119 H (60-115) mg/dL Calcium 8.5 (8.4-10.2) mg/dL Magnesium 1.4 L* (1.6-2.6) mg/dL Total Bilirubin 1.5 H (0.0-1.0) mg/dL AST 60 H (5-37) U/L ALT 71 H (0-40) U/L Alkaline Phosphatase 89 (39-117) U/L Troponin I High Sens 35.7 H D (<3.5-35.0) ng/L Total Protein 5.6 L (6.5-8.0) g/dL Albumin 3.6 (3.5-5.0) g/dL Influenza Type A (PCR) NEGATIVE (Negative) Influenza Type B (PCR) NEGATIVE (Negative) RSV RNA Qual (PCR) NEGATIVE (Negative) SARS-CoV-2 RNA (RT-PCR) NEGATIVE (Negative) Discharge Plan Discharge Clinical Impression: Acute dehydration Patient Disposition: Home, Self-Care Instructions: Dehydration (DC) Additional Instructions: DISCHARGE DIAGNOSES: Transient low blood pressure, low magnesium. Dehydration HISTORY OF PRESENTATION: Low blood pressure low heart rate in the office no symptoms EMERGENCY DEPARTMENT COURSE,TESTS, TREATMENTS: While in the ED today you had 1 or 2 low blood pressures and then began IV hydration which improved your blood pressure. You had a low magnesium and were given magnesium supplementation. After hydration and eating food your blood pressure remained stable DISCHARGE MEDICATIONS: ?[We have made no changes to your regular medication regimen] FOLLOW-UP: ?Call your primary or general physician soon as possible to discuss your symptoms, your ED visit and to discuss follow up plans Call your primary doctor follow up INSTRUCTIONS ?& RETURN PRECAUTIONS: If any symptoms change first call your primary physician, if it is after-hours your primary doctors office should have a provider micropaleontologist you can speak with. If the symptoms are severe or very concerning to you then call 911 or return to the ED. We recommend skipping your blood pressure medicine amlodipine and furosemide tomorrow and call your primary physician for further recommendations Hans Corcoran MD Emergency Physician [facility] Prescriptions: No Action furosemide [Lasix] 40 mg tablet 40 mg PO DAILY Qty: 90 3RF testosterone [AndroGel] 20.25 mg/1.25 gram (1.62 %) gel in metered-dose pump 3 pump transdermal DAILY 28 Days Qty: 150 5RF Rx Instructions: apply 3 pump daily alternating arms. Rub in until dry - aplique 3 bombas diarias alternando brazos. Frote hasta que se seque. clotrimazole 1 % cream 1 appl topical BID calcitriol 0.25 mcg capsule 0.25 mcg PO MOWEFR@0900 Jardiance 25 mg tablet 25 mg PO DAILY amlodipine 5 mg tablet 5 mg PO DAILY aspirin [Adult Low Dose Aspirin] 81 mg tablet,delayed release (DR/EC) 81 mg PO BEDTIME acetaminophen [Tylenol Extra Strength] 500 mg tablet 500 mg PO Q6H PRN (Reason: Pain) ferrous sulfate 325 mg (65 mg iron) tablet 325 mg PO BID trazodone 100 mg tablet 200 mg PO BEDTIME (DME) Wrist Brace Large Misc See Rx Instructions .ROUTE .MEDSUPPLY Qty: 2 0RF Rx Instructions: As directed (DME) blood sugar diagnostic Strip See Rx Instructions Not Applicable BID Qty: 10 Rx Instructions: As directed (DME) pen needle, diabetic 31 gauge x 3/16 needle See Rx Instructions .ROUTE BID Qty: 50 Rx Instructions: As directed (DME) pen needle, diabetic [UltiCare Pen Needle] 31 gauge x 5/16 needle See Rx Instructions subcut .MEDSUPPLY Qty: 1200 Rx Instructions: As directed atorvastatin 40 mg tablet 40 mg PO DAILY metoprolol succinate 25 mg tablet extended release 24 hr 25 mg PO DAILY Interventions: ED Discharge Assessment Last Done: 04/15/25 20:29 Discharge Date/Time: 04/15/25 20:10 Print Language: Bulgarian
--- NOTE | 2025-04-15 16:01 | PC.NURSE ---
75 M comes in to the ED with weakness, hypotension, and irregular HR. Pt presented to urgent care today for an appointment and left AMA per EMS, went home and was feeling weak. Pt denies any pain or discomfort at this time. RR even and unlabored, denies SOB or CP. A+Ox4. Pt calm, cooperative. Pt primarily speaks telugu.
[2025-04-15 16:11] LABS: MANUAL DIFF FLAG NO
--- OUTSIDE RECORDS SUMMARY | 2025-04-15 16:12 | XMS_ITS | Encounter Summary ---
Author Organization [email or web address] Address [address] [place] [address] Care Team Providers Care Excavator Backhoe Operator Name Role Phone Kristi Warren Primary Care Provider [phone] Encounter Details Date Type Department Care Team (Late st Contact Info) Description 08/12/2024 Telephone [facility] [address] [place], [place] [phone] Kristi Warren ANP [address] [place] [address] Social History Tobacco Use Types Packs/Day Years [...] Description 06/12/2025 1:00 PM EDT Office Visit [facility] [address] [place] [address] Kristi Warren ANP [address] [place] [address] documented as of this encounter Goals Goal Patient Goal Type Associated Problems Recent Progress Patient-Stated? Author Blood Pressure < 140/90 Blood Pressure 126/104(04/15 1:16 PM EDT) No Mike Harris, PharmD Hemoglobin A1c < 7.5 Result Component 6.5( 3:05 PM EDT) No Mike Harris, PharmD documented as of this encounter Visit Diagnoses Not on filedocumented in this encounter Additional Health Concerns Assessment Noted Time PHQ-9 Depression Total Score: 13 024 1:24 PM EDT documented as of this encounter Care Teams Excavator Backhoe Operator Relationship Specialty Start Date End Date Kristi Warren ANP [address] [place] [address] PCP - General Family Medicine 03/24/20 [facility] 08/09/24 12/19/24 [facility] 12/09/24 documented as of this encounter
--- OUTSIDE RECORDS SUMMARY | 2025-04-15 16:12 | XMS_ITS | Encounter Summary ---
Author Organization [facility], Address [address] [place] [address] Phone Care Team Providers Care Information Management Specialist Name Role Phone Unavailable Primary Care Provider Unavailabl e Encounter Details Date Type Department Care Team (Late st Contact Info) Description 07/30/2024 Documentation Only [facility], - Angel Caicedo [address] [place] [phone] Iona Salas [address] [place] [address] Social History Tobacco Use Types [...]
--- OUTSIDE RECORDS SUMMARY | 2025-04-15 16:12 | XMS_ITS | Patient Health Record ---
Author [facility] Address [address] [place] [address] Care Team Providers Care Secondary Teacher Name Role Phone Kristi Warren Primary Care Provider Fan Simons Unavailable [phone] Allergies No Known Allergies Reason For Referral No Information Medications Medication SIG (Take, Route, Frequency, Duration) Notes Start Date End Date Status Pravastatin Sodium 40 MG 1 tablet Orally Once a day; Duration: 30 day(s) Active traZODone HCl 100 MG 1 tablet at bedtime Orally Once a day; Duration: 30 day(s) Active Vitamin D2 Active Enalapril Maleate 20 MG 1 tablet Orally Once a day; Duration: 30 day(s) Active hydroCHLOROthiazide 12.5 MG 1 tablet in the morning Orally Once a day; Duration: 30 day(s) Active Iron Active Extra Depth Orthopedic Shoes (1 Pair) with Customized Heat Molded Multidensity Innersoles (3 Pair) as directed Dx: NIDDM/PVD (E11.59), Hammertoe Foot Deformity (M20.41,M20.42), Preulcerative Skin Lesion(s) (L85.1) Active Losartan Potassium 50 MG 1 tablet Orally Once a day; Duration: 30 day(s) Active Ciclopirox Olamine 0.77 % 1 application to affected area Externally to feet Twice a day; Duration: 30 days Active amLODIPine Besylate 5 MG 1 tablet Orally Once a day; Duration: 30 day(s) Active zzzCompression Stockings 20-30mm Hg . . .; Duration: . Active Aspirin 81 MG 1 tablet Orally Once a day; Duration: 30 day(s) Active Immunizations Vaccine Route Administration Date Status Comme nts Influenza Unknown 07/09/2020 Administered COVID-19 Pfizer BioNTech Vaccine Unknown 11/19/2020 Adm inistered #2 12/10/20 Social History Tobacco Use: Social History Observation [...] Problem Acquired hammer toe of right foot (06137858523388 05) Other hammer toe(s) (acquired), right foot (M20.41) Active confirmed Problem Type 2 diabetes mellitus with peripheral angiopathy (525310177) Type 2 diabetes mellitus with diabetic peripheral angiopathy without gangrene (E11.51) Active confirmed Problem Acquired hammer toe of left foot (47685130757494 03) Other hammer toe(s) (acquired), left foot (M20.42) Active confirmed Plan Of Treatment Pending Test Test Name Order Date [id number] NAIL, 6 OR MORE 09/14/2020 [id number] NAIL, 6 OR MORE 12/14/2020 [id number] NAIL, 6 OR MORE 02/22/2021 [id number] NAIL, 6 OR MORE 04/29/2021 [id number] NAIL, 6 OR MORE 08/11/2021 [id number] NAIL, 6 OR MORE 10/20/2021 [id number] NAIL, 6 OR MORE 12/30/2021 [id number]-[id number] NAIL, 6 OR MORE 03/23/2022 87995-[id number] NAIL, 6 OR MORE 06/06/2022 68121-[id number] SKIN LESIONS, OVER 4 06/06/20 22 93461-[id number] SKIN LESIONS, OVER 4 12/31/19 22 68275-WWKF SKIN LESIONS, OVER 4 03/23/20 22 54186-LSZU SKIN LESIONS, OVER 4 10/20/19 22 45742-KKXN SKIN LESIONS, OVER 4 08/11/20 21 54945-UAXP SKIN LESIONS, OVER 4 04/29/20 21 64168-[id number] SKIN LESIONS, OVER 4 02/23/20 21 54706-[id number] SKIN LESIONS, OVER 4 12/15/19 21 57928-QZGC SKIN LESIONS, OVER 4 09/14/20 20 Insurance Providers Payer Name Payer Address Payer Phone Subscriber Number Group Number Insured Name Patient Relationship to Insured Coverage Start Date Coverage End Date [facility] [employer] Claims [address] [place] [phone] [id number] Albert Baeza Self - patient is the insured Medical (General) History Medical History History ICD Code Diabetic Surgical History Surgery Date(Month/Year) back surgery Hospitalization History Reason Date(Month/Year) [facility]- swollen legs
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
[2025-04-15 16:13] LABS: Hematocrit 44.5 % (42.0-52.0); Hemoglobin 15.6 g/dl (14.0-18.0); Imm Gran Abs Auto 0.03 X10*3/uL (0.00-0.03); Imm Gran Pct Auto 0.4 % (0.0-0.4); Lymphocytes Absolute Auto 2.6 X10*3/uL (1.2-4.9); Mean Corpuscular HGB Conc 35.1 g/dl (31.0-36.0); Mean Corpuscular Hemoglobin 34.1 pg (27.0-33.0); Mean Corpuscular Volume 97.2 fL (80.0-98.0); NRBC Abs Auto 0.020 X10*3/uL (0.0-0.012); NRBC Pct Auto 0.2 /100WBC (0.0-0.2); Platelet Count 156 X10*3/uL (160-400); Red Blood Count 4.58 X10*6/uL (4.60-5.80); White Blood Count 8.2 X10*3/uL (4.8-10.8)
[2025-04-15 16:29] LABS: Alanine Aminotransferase 71 U/L (0-40); Albumin Level 3.6 g/dL (3.5-5.0); Alkaline Phosphatase 89 U/L (39-117); Anion Gap 12 (12-20); Aspartate Amino Transferase 60 U/L (5-37); Blood Urea Nitrogen 11 mg/dL (9-16); Calcium 8.5 mg/dL (8.4-10.2); Carbon Dioxide 33 mmol/L (22-29); Chloride 98 mmol/L (96-108); Creatinine Clr Calc Pharmacy 49.6; Estimated Glomerular Filt Rate > 60; Magnesium 1.4 mg/dL (1.6-2.6); Potassium 3.4 mmol/L (3.3-5.1); Sodium 140 mmol/L (135-145); Total Protein 5.6 g/dL (6.5-8.0)
[2025-04-15 16:34] LABS: Troponin-I High Sensitivity 35.7 ng/L (<3.5-35.0)
[2025-04-15 16:51] LABS: Resp Syncy Virus RNA Qual PCR NEGATIVE (Negative); SARS COV2 PCR INHOUSE NEGATIVE (Negative)
--- NOTE | 2025-04-15 17:00 | PC.NURSE ---
Late note: NS IV fluids finished at 1700. Unable to finish IV in DEC.
--- NOTE | 2025-04-15 17:56 | MHC.EDTECH ---
assisted pt to bathroom, pt urinated. Gave pt some warm blankets.
== END 2025-04-15 20:10 | disposition home or self-care (01) ==
PROVIDERS: Physician Assistant Medical; Emergency Provider Emergency Medicine
DX: E86.0 Dehydration (principal); Z03.818 Encounter for observation for suspected exposure to other biological agents ruled out; E11.9 Type 2 diabetes mellitus without complications; I10 Essential (primary) hypertension; I48.0 Paroxysmal atrial fibrillation; F17.210 Nicotine dependence, cigarettes, uncomplicated; Z86.74 Personal history of sudden cardiac arrest
CPT/HCPCS: 80053; 83735; 84484; 85025; 87637; 93005; 99283; 99285

== ENCOUNTER → 2025-04-15 15:38 | Outpatient (BNV) | payer OTHER, SELFPAY | PROVIDERS: Emergency Provider Emergency Medicine; Visit Provider Internal Medicine Cardiovascular Disease | DX: I48.91 Unspecified atrial fibrillation (principal); Z95.0 Presence of cardiac pacemaker | CPT/HCPCS: 93010 ==

== ENCOUNTER 2025-04-25 14:42 | Outpatient (AMB) | payer OTHER, SELFPAY ==
--- OUTSIDE RECORDS SUMMARY | 2025-04-25 14:44 | XMS_ITS | Encounter Summary ---
Author Organization [facility], Address [address] [place] [address] Phone Care Team Providers Care Bag Machine Operator Helper Name Role Phone Unavailable Primary Care Provider Unavailabl e Reason for Visit * Reason Comments Med Refill Encounter Details Date Type Department Care Team (Late st Contact Info) Description 10/15/2024 Refill [facility], [address] [place] [address] Jt Ochoa PA [address] [place] [address] Social History Tobacco Use Types [...]
--- OUTSIDE RECORDS SUMMARY | 2025-04-25 14:45 | XMS_ITS | Data Portability ---
Author Organization [facility], [facility] Address [address] [place] [address] Care Team Providers Care Choral Director Name Role Phone HIM CCA OTHER NAME, KARLI Primary Care Provider Assessment No assessment recorded. Plan of Treatment Reminders Order Date Submit Date Provider Last Modified By Organization Details Last Modified Time Details Appointments None recorded. Lab None recorded. Referral None recorded. Procedures None recorded. Surgeries None recorded. Imaging None recorded. Medication Orders ketorolac 30 mg/mL injection solution [address] [facility] [address] [facility], [address] [place] [address], [id number], 5 12:58:07 ibuprofen 400 mg tablet [address] [facility] [address] [facility], [address] [place] [address], [id number], 5 10:33:08 Patient TargetsNo targets recorded. Patient InstructionsNo instructions [...] Available Not Available No t Available FreeStyle Buda Lite kit USE DIRECTED TO TEST BLOOD [...] Not Available Not Available N ot Available ketorolac 30 mg/mL injection solution 30 mg by injection 2024 active Not Available Not Available Not Avai lable testosterone 20.25 mg/1.25 gram per pump act.(1.62 [...] cm 98 % 98 % 97.8 [degF] 85699.6 g 124/73 mm[Hg] Not Available [facility] 5 10:30:57 Date Recorded Body height Heart rate Body weight Body temperature Respiratory rate Oxygen saturation Oxygen saturation in Arterial blood by Pulse oximetry Systolic And Diastolic Provider Name and Address Organization Details Last Updated DateTime 5 157.48 cm 56 /min 88873.6 g 98 [degF] 14 /min 96 % 96 % 112/72 mm[Hg] Not Available [facility] 5 10:15:53 Date Recorded Oxygen saturation Oxygen saturation in Arterial blood by Pulse oximetry Heart rate Body weight Body temperature Respiratory rate Systolic And Diastolic Systolic And Diastolic Provider Name and Address Organization Details Last Updated DateTime 5 96 % 96 % 56 /min 09059.8 8 g 97.9 [degF] 18 /min 106/53 mm[Hg] 96/52 mm[Hg] Not Available [facility] - production 5 12:49:35 Date Recorded Body temperature Heart rate Respiratory rate Oxygen saturation Oxygen saturation in Arterial blood by Pulse oximetry Systolic And Diastolic Provider Name and Address Organization Details Last Updated DateTime 4 98.3 [degF] 60 /min 18 /min 94 % 94 % 101/60 mm[Hg] Not Available [facility] - production 4 13:33:48 Date Recorded Heart rate Respiratory rate Oxygen saturation Oxygen saturation in Arterial blood by Pulse oximetry Body temperature Systolic And Diastolic Provider Name and Address Organization Details Last Updated DateTime 4 78 /min 18 /min 96 % 96 % 99 [degF] 118/60 mm[Hg] Not Available [facility] - production 4 15:33:36 Social History None recorded. Functional Status None recorded. Mental Status None recorded. Family History Nothing Reported. Medical History No medical history recorded. Past Encounters Encounter ID Performer Location Encounter Start Date Encounter Closed Date Diagnosis/Indication Diagnosis SNOMED-CT Code Diagnosis ICD10 Code Diagnosis Note [id number] Mainor Hdz MD [facility] - [facility] [address] [place] [address] [id number] 07/02/2022 18:35:48 07/04/2022 13:21:04 Diarrhea 98915110 R19.7 Mild. No s/s of dehyrdatio n. Labs notable for Kitchen Bath Designer of 1.9 (prior chart review shows Kitchen Bath Designer of 1.3-1.4 in 2020). Advised to stay hydrated and have close f/u with PCP [id number] Mansi Pratt MD Main - [facility] [address] [place] [address] [id number] 10/24/2023 15:51:18 10/24/2023 22:23:32 Acute conjunctivitis of bilateral eyes [id number] 10959 H10.33 [id number] Kiana Ruiz MD Main - [facility] [address] [place] [address] [id number] 04/17/2024 14:11:49 04/17/2024 21:39:36 Recurrent falls 922928279 R29.6 Labs stable for baseline CKD 3/ concern for hypotensio n-patient is being beta-block fidelia on metoprolol on with amlodipine -I have no access to prior EKGs or recent hospital notes After 1 L of IV fluid blood pressure slightly improved 98/56 with pulse of 62 [id number] Tate Manriquez MD Main - [facility] [address] [place] [address] [id number] 05/25/2024 13:33:45 01/23/2025 20:10:16 Accidental fall [id number] W19.XXXA As noted, we were called to see this patient regarding concerns of fall. Evaluation in the field was performed by my nutritional services cook colleague, as noted above, I provided real-time [...] of any new or worsening serious symptoms. [id number] DARIUS HARLEY MD Main - [facility] [address] [place] [address] [phone] 0 07/25/2024 15:33:33 07/25/2024 17:37:14 Worried well [id number] Z71.1 Evaluation in the field was performed by my nutritional services cook colleague, as noted above, I provided real-time direction and supervisio n for this visit. The evaluation revealed a 74-year-ol d male, status post recent admission for acute respirator y failure with hypoxia, aspiration pneumonia, and septic shock following a serious fall, during which he was found unconsciou s by his GREEN CHAIN OPERATOR. He was transferre d to [facility] until 07/13/24. The patient is very tearful and anxious about his health, though he has no acute complaints at this time, aside from the concern that he lives alone and would like to restart his GREEN CHAIN OPERATOR services but is unsure how to do so. He denies fever, chills, chest pain, shortness of breath, nausea, vomiting, or diarrhea. He has been tolerating oral intake well. VS stableExam with clear lungs, abdomen soft NTND, no ZEV, no neuro deficits.A llergies reviewed . Impression :Worried but well Plan:-Reas surance was given by the nutritional services cook. -I reached out to CRU to request assistance in notifying the General Doc regarding the patient s return home and [...] vomiting, diarrhea, dizziness or any other concerns. [id number] Lyudmila Saeed MD Main - [facility] [address] [place] [address] [id number] 0 12/12/2024 10:30:46 12/12/2024 12:53:46 Pain of right knee joint [id number] 49551 M25.561 74 year old male being evaluated [...] assessment and plan as documented by the nutritional services cook. I provided real-time medical direction for this encounter and was immediatel y available to provide additional phone-base d assistance as needed. We discussed the diagnostic uncertaint y of home visits and associated risks. We discussed the need to seek care urgently/e mergently in the setting of any new or worsening symptoms. [id number] Tate Manriquez MD Main - [address] [phone] 02/27/2025 10:15:49 02/28/2025 11:22:08 Neck pain [id number] M54.2 As noted, we were called to see this patient regarding concerns of neck pain. Evaluation in the field was performed by my nutritional services cook colleague, as noted above, I provided real-time [...] symptoms, particular ly new weakness, exertional pain. [id number] Lyudmila Saeed MD Main-[facility] [address] [id number] 04/18/2025 12:49:33 04/20/2025 14:59:30 Neck pain [id number] M54.2 75 year old male being evaluated for neck pain that he's had for 2 months. Patient has not taken any medication s for this lately, received toradol a few months ago which was helpful. No new trauma reported, and no upper extremity symptoms. Exam notable for BP 106/53, HR 56, and otherwise normal vital signs. Lungs are clear, no peripheral edema noted, and neck is mildly tender to palpation posteriorl y, with preserved ROM. Presentati on consistent with chronic neck strain, will administer toradol IM today. Also incidental ly noting low blood pressure and bradycardi a, although patient is asymptomat ic, no clear indication for patient to have BP and HR this tightly controlled , therefore recommende d discontinu ing metoprolol until further evaluation by outpatient team. Recommend outpatient PT referral given chronicity of neck pain. I have reviewed and agree with the assessment and plan as documented by the nutritional services cook. I provided real-time medical direction for this encounter and was immediatel y available to provide additional phone-base d assistance as needed. We discussed the diagnostic uncertaint y of home visits and associated risks. We discussed the need to seek care urgently/e mergently in the setting of any new or worsening symptoms. Health Concerns Section Related Observation LastModified by Organization Detai ls LastModified Time None Recorded Concern Status LastModified by Organization Details LastModified Time None Recorded Advance Directives Directive None Recorded Payers Insurance Date Sequence Insurance Name Policy Number Policy Pinzon Covered Member ID Pinzon Member ID Guarantor Name 02/27/2025 1 [facility] - DOS PRIOR TO 2023 - DUAL ELIGIBLE (MEDICARE REPLACEMENT/ADV ANTAGE - HMO) Albert Posada [id number] Albert Posada 04/20/2025 1 [facility] - DOS ON OR AFTER 2023 - DUAL ELIGIBLE - CUSTODIAL OPTIONS AND ONE CARE (MEDICARE REPLACEMENT/ADV ANTAGE - HMO) Albert Posada [id number] Albert Posada Notes Date Note Type Note Provider Name and Address Organization Details Recorded Time 05/25/2024 text/html CRC Nurse Triage Notes (Ophelia Nichols): Reason For Request: Patient Fell this morning. Chief Complaints: Falls PMH: Diabetes, Hypertension, HIV Allergies: No Known Comments: Metal Refiner verified the member's name//address and phone number. [...] s/s and seek emergency treatment if needed. .................... .................... .................... .................... .................... .................... .................... . Roustabout Pusher Note From Leticia Stinson: Pt reports fall while transferring himself from bed to chair at approximately 0530. Unwitnessed, but family member heard fall from other room and was able to get to pt quickly, denies head strike or LOC. 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 Physical exam atraumatic, full +ROM in all extremities, steady gait with walker which pt uses at baseline, able to transfer from chair without incident. [facility] consulted, pt and GREEN CHAIN OPERATOR will monitor, seek further evaluation as needed. Red flags reviewed. .................... .................... .................... .................... .................... .................... .................... . Disposition: Fulfilled Tate Manriquez MD [address] [facility],[address], [place], [address], [employer]ICE JAY 05/25/2024 14:30:14 07/25/2024 text/html HPI: Member called in stating feeling unwell and crying, calmed down, and reports was in the hospital and was worried with his overall health decline and weakness. Member was at [facility] until 07/13/24 - Admitted on 06/25/2024for Acute respiratory failure with hypoxia (J96.01) Aspiration pneumonia (J69.0) Septic shock--after a serious fall and being found unconscious by his GREEN CHAIN OPERATOR. Member asked for HV by [facility] today to check his VS and make sure he is well. .................... .................... .................... .................... .................... .................... .................... . CRC Nurse Triage Notes (Padmini Stallings): Chief Complaints: Anxiety, Depression, Failure to Thrive PMH: Diabetes, Hypertension, HIV Comments: CRC RN DID NOT NEED FURTHER INFO .................... .................... .................... .................... .................... .................... .................... . Roustabout Pusher Note From Vijay Turner: Dispatched to the [...] advised that we would reach out to direct care professional to restart GREEN CHAIN OPERATOR services. Red flags discussed. ALL times are approx. .................... .................... .................... .................... .................... .................... .................... . Disposition: Milan HARLEY MD [address] [place] [address],[address], [place], [address], [employer] [facility] 07/25/2024 16:32:00 12/12/2024 text/html CRC Nurse Triage [...] Pain PMH: Hypertension, HIV/AIDS PMH Reviewed at 12/12/2024: Allergies Reviewed at 12/12/2024:08 Comments: Metal Refiner verified the name//address and phone number. Pt [...] s/s and seek emergency treatment if needed .................... .................... .................... .................... .................... .................... .................... . Roustabout Pusher Note From Donald Mejia: Patient alert and [...] in extremities. Good ROM. Good skin TURGOR. [facility] advises patient should try ibuprofen, OTC. Orders ibuprofen 400 mg now. Red flags patient education discussed. Note left for caregiver. With instructions for ibuprofen dosing. Medication administered as ordered without complication. .................... .................... .................... .................... .................... .................... .................... . [facility] Consulted: Lyudmila Saeed .................... .................... .................... .................... .................... .................... .................... . Disposition: Fulfilled Lyudmila Saeed MD [address] [place] [address],[address], [place], [address], [email or web address] 12/12/2024 10:38:50 02/27/2025 text/html CRC Nurse Triage [...] of Abdominal Pain, Weakness Call completed with spanish interpreter. GREEN CHAIN OPERATOR calling for for neck pain. He does [...] signs of when to seek emergency care. Roustabout Pusher Organization Information for Donald Mejia [employer] Legal Name: [facility] Transportation Address: [address] [place] [address], [place] [address], Digital Sales Manager: Artemio Lomax MD CLIA No.: [id number] Roustabout Pusher POC Test Results from Donald Mejia [facility] (10:26:09) pH: 7.384 pH units pCO2: 53.8 mmHg pO2: 31.6 mmHg Na: 141 mmol/L K: 3.6 mmol/L iCa: 1.13 mmol/L Cl: 96 mmol/L TCO2: 31.4 mEq/L Hct: 41 % Hb: 14 g/dL Glu: 131 mg/dL Lac: 1.86 mmol/L Cr: 0.92 mg/dL BUN: 13 mg/dL A mmol/L HCO3: 32.2 mmol/L .................... .................... .................... .................... .................... .................... .................... . Roustabout Pusher Note From Donald Mejia: Patient alert and [...] in all. Muscles of neck feel tense. [facility] orders EPOC. Toradol 15 mg IM. Patient coached on use of ibuprofen and Tylenol. Medication administered as ordered without complication using five rights. Red flags, patient education discussed. .................... .................... .................... .................... .................... .................... .................... . [facility] Consulted: Suresh Manriquez .................... .................... .................... .................... .................... .................... .................... . Disposition: Fulfilled Tate Manriquez MD [address] [place] [address],[address], [place], [phone], [email or web address] 02/28/2025 11:15:38 04/18/2025 text/html CRC Nurse Triage Notes (Cecilia Mann): Reason For Request: neck pain Chief Complaints: Neck Pain PMH: Hypertension, HIV/AIDS PMH Reviewed at 04/17/2025 - :29 Allergies Reviewed at 04/17/2025 - :29 Comments: 75 y.o male complains of Neck Pain Patients surrogate calling in to place a referral. Per GREEN CHAIN OPERATOR patient has been complaining of posterior neck pain, GREEN CHAIN OPERATOR gave him tylenol, he is currently sleeping, but GREEN CHAIN OPERATOR reports to surrogate he still seems to be in pain. Per surrogate the telex operator have not reported any falls, trauma or strenuous activity. Patient did not complain of any chest pain or arm pain, no shortness of breath, no headache, no nausea or vomiting. Surrogate would like him to be evaluated, tomorrow 04/18. I provided information on the mobile health provider response time and advised the patient and/or caregiver to monitor reported signs and symptoms. I discussed the warning signs of when to seek emergency care. .................... .................... .................... .................... .................... .................... .................... . Roustabout Pusher Note From Catherine Lui: Sent to a call for a pt complaining of neck pain. SC8 arrives on scene, pt is alert and oriented, airway is patent. Pt's surrogate is contacted via phone. Pt complains of atraumatic bilateral neck pain radiating from traps x 2-3 months. Pt's surrogate states pt started complaining of neck pain yesterday and has been taking Tylenol with little relief. Pt denies land, dizziness, cp, sob, n/v/d, abd pain, fever, or loc. (sitting) BP:96/52; (standing) BP:106/53, P:56, RR:18, SpO2:96% RA, T:97.9; Head: unremarkable; Neck: bilateral trap pain; Lung sounds: clear bilaterally; Abdomen: soft, non-tender, no distention; Back: unremarkable; Extremities: unremarkable; Skin: pink, warm, dry; Pt was treated in [place] ED on 04/15 for low bp and dehydration. C consulted; Pt takes Metoprolol 12.5mg daily. Pt has a cobbler apprentice appt today and is told to hold Metoprolol until he talks to Cardiology. Surrogate is made aware. C orders Toradol 15mg IM. Toradol 15mg IM administered. Red flags discussed. Pt has no further questions. .................... .................... .................... .................... .................... .................... .................... . [facility] Consulted: Lyumdila Saeed .................... .................... .................... .................... .................... .................... .................... . Disposition: Fulfilled Lyudmila Saeed MD [address] [facility],[address], [place], [address], [employer] 04/18/2025 23:21:48
--- OUTSIDE RECORDS SUMMARY | 2025-04-25 14:45 | XMS_ITS | Patient Health Record ---
Author Organization [facility] Address [address] [facility] [place] [address] Care Team Providers Care Antisqueak Worker Name Role Phone Kristi Warren Primary Care Provider Fan Simons Unavailable [phone] Allergies No Known Allergies Reason For Referral [...] Route Administration Date Status Comme nts COVID-19 [employer] Vaccine Unknown 11/19/2020 Adm inistered #2 [...] Problem Acquired hammer toe of right foot ([id number] 9105) Other hammer toe(s) (acquired), right foot (M20.41) Active confirmed Problem Type 2 diabetes mellitus with diabetic peripheral angiopathy without gangrene (E11.51) Active confirmed Problem Acquired hammer toe of left foot ([id number] 9103) Other hammer toe(s) (acquired), left foot (M20.42) Active confirmed Plan Of Treatment Pending Test Test Name Order Date [id number] NAIL, 6 OR MORE 09/14/2020 26811-JYZNSFW NAIL, 6 OR MORE 12/14/2020 63344-PDAXVRB NAIL, 6 OR MORE 02/22/2021 65720-UYUJBZQ NAIL, 6 OR MORE 04/29/2021 68667-FXIVMJJ NAIL, 6 OR MORE 08/11/2021 50853-FABOZCE NAIL, 6 OR MORE 10/20/2021 98453-NFTHSYE NAIL, 6 OR MORE 12/30/2021 52422-PDRLIEW NAIL, 6 OR MORE 03/23/2022 79638-QHVWADU NAIL, 6 OR MORE 06/06/2022 77062-UHSU SKIN LESIONS, OVER 4 06/06/20 22 28528-JQMG SKIN LESIONS, OVER 4 12/31/19 22 30170-KOAG SKIN LESIONS, OVER 4 03/23/20 22 12363-HFEF SKIN LESIONS, OVER 4 10/20/19 22 15797-IGIP SKIN LESIONS, OVER 4 08/11/20 21 20232-VBXY SKIN LESIONS, OVER 4 04/29/20 21 92460-CEYT SKIN LESIONS, OVER 4 02/23/20 21 19225-JSWS SKIN LESIONS, OVER 4 12/15/19 21 60421-PUAK SKIN LESIONS, OVER 4 09/14/20 20 Insurance Providers Payer Name Payer Address Payer Phone Subscriber Number Group Number Insured Name Patient Relationship to Insured Coverage Start Date Coverage End Date [facility] [employer] Claims [address] [place] [phone] [id number] Albert Baeza Self - patient is the insured Medical (General) History Medical History History ICD Code Diabetic Surgical History Surgery Date(Month/Year) back surgery Hospitalization History Reason Date(Month/Year) [facility]- swollen legs
[2025-04-25 15:16] VITALS: BP 100/60
--- NOTE | 2025-04-25 15:16 | AM.OFFVISNUR ---
Vital Signs 04/25/25 15:16 BP 100/60 Blood Pressure Location Lt brachial Position Sitting Intake Visit Reasons: BP/EKG - Running low BPs Allergies No Known Allergies (No Known Allergies*) Allergy (Verified 04/15/25 15:47) Nursing Note pt is here for bp ck with ekg pt has no complaints ekg being reviewed by BATH STEWARD [place] Office Procedures EKG 66596-Xolvunmohcjfozlbe, Complete Coding CPT Codes EKG - CPT: 08695-Ahgjrlmwepxiidkvj, Complete ([id number])
== END 2025-04-25 15:23 | disposition home or self-care (01) ==
LOC: HO.HCS 14:43
DX: I49.1 Atrial premature depolarization (principal)
CPT/HCPCS: 93010

== ENCOUNTER → 2025-04-25 14:42 | Outpatient (BNVA) | payer OTHER, SELFPAY | DX: I49.1 Atrial premature depolarization (principal); R03.1 Nonspecific low blood-pressure reading | CPT/HCPCS: 93005 ==

== ENCOUNTER → 2025-05-01 12:48 | Outpatient (REF) | payer OTHER, SELFPAY ==
--- NOTE | 2025-05-01 12:54 | CA_ITS ---
Transthoracic Echocardiogram Patient (Last, First, Middle): Albert Baeza, Gender: Male Date of : 1950 Age: 75 Procedure Date: 05/01/2025 Procedure Type: Transthoracic Echocardiogram Location: OP Height: 167.64 cm Weight: 70.76 kg BSA: 1.80 m2 Heart Rate: 66 bpm BP: 130 / 65 mmHg Musical Performer: SHAHRIAR/JAMES Referring MD: Kristi Warren NP Conciliator: Jcarlos Adair MD Symptoms: HYPOTENSION I95.9 Study Quality: Adequate ECG Rhythm: Frequent ventricular premature beats Conclusions: - 1. Low normal LV ejection fraction 50-55% with impaired relaxation filling pattern 2. Normal cardiac valvular Dopplers 3. Mildly dilated ascending aorta at 4.3 cm 4. No gross pericardial effusion Findings Left Ventricle Normal left ventricular cavity size. There is normal left ventricular wall thickness. The left ventricular systolic function is low normal. The visually estimated ejection fraction is between 50-55%. Spectral Doppler is indicative of an impaired relaxation filling pattern. E/E prime ratio is between 8 and 15 consistent with indeterminate filling pressures. There is mild septal asymmetric hypertrophy. Wall Motion Rest Echo Findings The basal inferior, mid inferior, basal inferoseptal, and basal inferolateral segments are hypokinetic. All other scored wall segments showed normal motion. Right Ventricle Normal right ventricular cavity size and systolic function. Atria Both atria are normal in size. Interatrial shunt cannot be excluded. Aortic Valve Normal aortic valve structure and function. There is no aortic valve stenosis. There is no aortic valve regurgitation. Mitral Valve There is mild anterior and posterior mitral leaflet thickening. There is trace mitral valve regurgitation. There is no mitral valve stenosis. Pulmonic Valve The pulmonic valve is likely normal. There is trace pulmonic valve regurgitation. Tricuspid Valve Normal tricuspid valve structure. Tricuspid regurgitation envelope is inadequate for calculation of right ventricular systolic pressure. Normal right atrial pressure. Great Vessels The pulmonary artery was not well visualized. There is mild dilatation of the ascending aorta measuring 4.30 cm. Venous The inferior vena cava is normal in size and collapses greater than 50% with inspiration. Pericardium/Pleural There is no evidence of pericardial effusion. Prior Study Comparison No significant change compared to prior study dated: 04/08/2024. Measurements 2D Linear Measurements IVSd: 1.19 0.6-0.9/0.6-1.0 cm LVIDd: 3.14 3.9-5.3/4.2-5.9 cm LVIDd Index: 1.74 2.4-3.2/2.2-3.1 cm/m2 LVIDs: 2.47 2.0-3.6 cm LVPWd: 1.05 0.7-1.1 cm LA Diam: 2.80 2.7-3.8/3.0-4.0 cm LAIDs Index: 1.56 1.5-2.3 cm/m2 LV Mass: 129.75 67-162/88-224 g LV Mass Index: 72.08 43-95/49-115 g/m2 LVOT Diam: 2.10 3.0+(-)1.3 cm 2D Systolic Function EF 4C: 48.80 >55% EF 2C: 62.70 >55% EF BiP: 53.70 >55% Mitral Valve MV Pk E: 0.78 MV PK A: 1.16 MV Decel Time: 277.00 E/A: 0.70 E'Lateral: 5.55 E'Medial: 4.03 E/E' Med: 19.50 E/E' Lat: 14.10 PHT: 81.00 MVA PHT: 2.72 Decel Ventura: 2.84 Aortic Valve AoV Pk Binh: 0.84 AoV Mn Binh: 0.54 AoV VTI: 0.15 AoV Pk Grad: 3.00 Aov Mn Grad: 1.00 OSMAN Cont.VTI: 2.90 LVOT LVOT Pk Binh: 0.54 LVOT Mn Binh: 0.33 LVOT VTI: 0.13 LVOT Pk Grad: 1.00 LVOT Mn Grad: 1.00 LVOT Diam: 2.10 LVOT Area: 3.46 Diastolic Function MV Pk E: 0.78 MV Pk A: 1.16 E/A: 0.70 E'Medial: 4.03 E/E' Med: 19.50 E' Laterial: 5.55 E/E' Lat: 14.10 Right Ventricle TAPSE (mm): 19.30 TVS' Binh: 9.46 Tricuspid Valve TR Pk Binh: 2.09 TR Pk Grad: 17.00 Great Vessels Aorta Sinus of Valsalva: 4.20 2.0-3.5 cm Ao Asc: 4.30 2.1-3.4 cm Ao Arch: 2.80 Pulmonary Valve PV Pk Binh: 0.73 Peak PV Grad: 2.00 Updated in Other Vendor System with Status of Final Jcarlos Adair MD electronically signed on 05/01/2025 4:50:14 PM with status of Final
--- OUTSIDE RECORDS SUMMARY | 2025-05-01 13:02 | XMS_ITS | Continuity of Care Document ---
Author Organization [facility] [employer] [facility] Address [address] [place] [address] Care Team Providers Care Feather Duster Winder Name Role Phone HIM GAVI OTHER NAME, KARLI Primary Care Provider Assessment Encounter Date Assessment Date Assessment LastModified by Organization Details LastModified Time 04/28/2025 04/28/2025 I provided real -time medical direction via phone for this encounter, and was available for additional phone based assistance as needed. I have reviewed and agree with the Assessment and Plan as documented by the Stage Hand. We discussed the diagnostic uncertainty of home visits and the risk associated with this. In this case I felt this to be an acceptable and reasonable amount of risk given the benefit of avoiding an ED visit. The patient given the opportunity to ask questions. Advised f/u w/ pcp this week or next- if develops CP/severe SOB/turning blue/uncontrolle d n/v/d/ AMS/ syncope/acute speech or vision changes or any focal numbness or weakness/hi fever / to call 911- he verbalized understanding of instructions to the Greenlandic speaking medic [email or web address] Not available 04/28/2025 10:34:28 Plan of Treatment Reminders Order Date Submit Date Provider Last Modified By Organization Details Last Modified Time Details Appointments None recorded. Lab None recorded. Referral None recorded. Procedures None recorded. Surgeries None recorded. Imaging electrocard iogram 2024 025 BECK[facility], [address] [place] [address], [id number] 20:17:38 Medication Orders None recorded. Patient TargetsNo targets recorded. Patient InstructionsNo instructions recorded. Reason for Referral None Reported. Results Created Date Observation Date Name Description Value Unit Range Abnormal Flag Note LastModifiedBy Organization Detail LastModifiedTime 04/28/2004/28/2025 elect rocar diogr am No observ ation record ed. [email or web address] [address], [place], [address] 04/28/2025 15:51:16 Result Notes None recorded. Medical Equipment None [...] 1 CAPSULE BY MOUTH ONCE WEEKLY ON Monday active Not Available Not Available No t [...] Available Not Available No t Available [employer] [place] Lite kit USE DIRECTED TO TEST BLOOD [...] Vitals Date Recorded Heart rate Respiratory rate Body temperature Oxygen saturation Oxygen saturation in Arterial blood by Pulse oximetry Systolic And Diastolic Systolic And Diastolic Provider Name and Address Organization Details Last Updated DateTime 5 87 /min 16 /min 97.5 [degF] 95 % 95 % 100/64 mm[Hg] 103/66 mm[Hg] Not Available [facility] - production 5 10:49:12 Social History None recorded. Functional Status None recorded. Mental Status None recorded. Family History Nothing Reported. Medical History No medical history recorded. Past Encounters Encounter ID Performer Location Encounter Start Date Encounter Closed Date Diagnosis/Indication Diagnosis SNOMED-CT Code Diagnosis ICD10 Code Diagnosis Note [id number] Lyudmila Saeed MD [address] [address] 04/18/2025 12:49:33 04/20/2025 14:59:30 Neck pain 48842413 M54.2 75 year old male being evaluated [...] assessment and plan as documented by the vehicle washer. I provided real-time medical direction for this encounter and was immediatel y available to provide additional phone-base d assistance as needed. We discussed the diagnostic uncertaint y of home visits and associated risks. We discussed the need to seek care urgently/e mergently in the setting of any new or worsening symptoms. [id number] Kiana Ruiz MD [facility] [address] [place] [address] 04/28/2025 10:23:13 04/28/2025 14:59:03 Hypotensive episode [id number] I95.9 Now resolved. Patient is asymptomat ic. EKG reveals no acute ischemia. reassuranc e provided -advised to continue regular medication s. -Call us if he feels he needs another visit Note sent to CP via [facility] requesting they help the patient get a more accurate home BP cuff Health Concerns Section Related Observation LastModified by Organization Detai ls LastModified Time None Recorded Concern Status LastModified by Organization Details LastModified Time None Recorded Payers Encounter Date Sequence Insurance Name Policy Number Policy Pinzon Covered Member ID Pinzon Member ID Guarantor Name 04/28/[address] [facility] - DOS ON OR AFTER 2023 - DUAL ELIGIBLE - [employer] OPTIONS AND ONE CARE (MEDICARE REPLACEMENT/ADV ANTAGE - HMO) Albert Posada [id number] Albert Posada Notes Date Note Type Note Provider Name and Address Organization Details Recorded Time 04/28/2025 text/html ROS as noted in the HPI [facility] Nurse Triage Notes (Deepti Jaimes): Reason For Request: [employer] reporting low blood pressure 1st readin/50. 1462nd readin/56, 144 Denies: History of Heart Attack, in the setting of active chest pain Active Chest pain, radiates to neck jaw and or arm Diaphoretic/Sweating Describes as crushing Sudden onset of nausea/Vomiting and shortness of breath. Shortness of Breath Unable to speak in full sentences without distress Palpitations, feeling dizzy Chest pain, increased fatigue CHF history, increased swelling and edema Weakness/tachycardia Chief Complaints: Low Blood Pressure PMH: Hypertension, HIV/AIDS PMH Reviewed at 04/28/2025:16 Allergies Reviewed at 04/28/2025 - 09:16 Comments: 75 y.o male complains of Low Blood Pressure Patients [employer] making referral She states he has been seen by cardiology for a low heart rate and was recently taken off of two meds (she does not know which ones) Shes concerned about the blood pressure readings and would like him checked Patient taking blood pressure this morning 83/56 pulse reading 144 patient is asymptomatic He denies any chest pain, lightheadedness or dizziness and is eating breakfast at the time being. denies any nausea, vomiting or abdominal pain. She has been encouraging fluids. I provided information on the mobile health provider response time and advised the patient and/or caregiver to monitor reported signs and symptoms. I discussed the warning signs of when to seek emergency care. Stage Hand Organization Information for Reuben [facility] Business Legal Name: [employer]. Address: [address] [place] [id number], Cane Weigher: Rogers C[place] No.: [id number] Stage Hand POC Test Results from Reuben [facility] EKG (10:22:43) EKG test performed. Attachments uploaded as part of this test result can be found under Documents section. ..................... ..................... ..................... ..................... ..................... ..................... ............... Stage Hand Note From Reuben Curtis: Encountered patient seated upright and conscious. Patient reports his [employer] arrange the appointment due to low blood pressure readings from his home machine, patient adamantly denies symptoms when prompted. Patient denies at any point experiencing chest pain, shortness of breath, lightheadedness, dizziness or fevers. Patient reports he would just like to be evaluated because he lives alone and would like the peace of mind. 12 lead EKG reveals a sinus rhythm with intermittent ectopy, non-diagnostic for acute STEMI. Blood pressure assessed via monitor and manual cuff. Skin warm, dry and of appropriate color for ethnicity. Head and neck, free of trauma and edema. -JVD. Breath sounds present, clear and equal bilaterally. Abdomen is soft, nontender and non-distended. Extremities are free of trauma and edema. [facility] contacted: reports no intervention is needed as patient s blood pressure is within therapeutic levels when referring back to patient s previous charts. Patient s home blood pressure machine was used in order to compare with Zoll monitor and it was found to register 10 points lower systolic. [facility] reports they will input a note to patient care team in order to request a new home blood pressure machine. Patient was encouraged to monitor himself for symptoms, such as chest pain and shortness of breath, dizziness and fevers. Patient was encouraged to seek further medical attention, including 911 if said symptoms were to develop. Additionally, patient was advised to arrange an appointment with primary care in order to follow-up about low blood pressures. Patient verbalizes understanding of the plan and reports he is comfortable remaining home today. ..................... ..................... ..................... ..................... ..................... ..................... ............... [facility] Consulted: Kiana Ruiz ..................... ..................... ..................... ..................... ..................... ..................... ............... Disposition: Fulfilled Kiana Ruiz MD [address] [facility],[address], [place], [address], [employer] MAURICE 04/28/2025 11:41:04
--- OUTSIDE RECORDS SUMMARY | 2025-05-01 13:02 | XMS_ITS | Encounter Summary ---
Author Organization [facility], Address [address] [place] [address] Phone Care Team Providers Care Percussion Instrument Tuner Name Role Phone Unavailable Primary Care Provider Unavailabl e Encounter Details Date Type Department Care Team (Late st Contact Info) Description 07/30/2024 Documentation Only [facility], - Angel Caicedo [address] [place] [phone] Iona Salas [address] [place] [address] Social History Tobacco Use Types [...]
--- OUTSIDE RECORDS SUMMARY | 2025-05-01 13:02 | XMS_ITS | Patient Health Record ---
Author Organization [facility] Address [address] [facility] [place] [address] Care Team Providers Care Ring Barker Operator Name Role Phone Kristi Warren Primary Care Provider Fan Simons Unavailable [phone] Allergies No Known Allergies Reason For Referral [...] Problem Acquired hammer toe of right foot (05246740228256 05) Other hammer toe(s) (acquired), right foot (M20.41) Active confirmed Problem Type 2 diabetes mellitus with peripheral angiopathy (402582281) Type 2 diabetes mellitus with diabetic peripheral angiopathy without gangrene (E11.51) Active confirmed Problem Acquired hammer toe of left foot (59240038044799 03) Other hammer toe(s) (acquired), left foot (M20.42) Active confirmed Plan Of Treatment Pending Test Test Name Order Date [id number]-[id number] NAIL, 6 OR MORE 09/14/2020 68270-KIDHMHD NAIL, 6 OR MORE 12/14/2020 53021-QEUIYIQ NAIL, 6 OR MORE 02/22/2021 75572-GJXZYOR NAIL, 6 OR MORE 04/29/2021 20226-SNHBCME NAIL, 6 OR MORE 08/11/2021 15840-OYDEUON NAIL, 6 OR MORE 10/20/2021 84065-ZRGYAUC NAIL, 6 OR MORE 12/30/2021 97024-MHDMYRW NAIL, 6 OR MORE 03/23/2022 37147-TQRRCZF NAIL, 6 OR MORE 06/06/2022 96820-RIPL SKIN LESIONS, OVER 4 06/06/20 22 77894-PCTA SKIN LESIONS, OVER 4 12/31/19 22 52967-VZRM SKIN LESIONS, OVER 4 03/23/20 22 04581-AOJS SKIN LESIONS, OVER 4 10/20/19 22 48989-RDAW SKIN LESIONS, OVER 4 08/11/20 21 79608-HIOM SKIN LESIONS, OVER 4 04/29/20 21 63747-APYD SKIN LESIONS, OVER 4 02/23/20 21 44076-ZJOY SKIN LESIONS, OVER 4 12/15/19 21 13122-HIMC SKIN LESIONS, OVER 4 09/14/20 20 Insurance Providers Payer Name Payer Address Payer Phone Subscriber Number Group Number Insured Name Patient Relationship to Insured Coverage Start Date Coverage End Date [facility] S[employer] Claims [address] J[place] Rahman [id number] [phone] [id number] Albert Baeza Self - patient is the insured Medical (General) History Medical History History ICD Code Diabetic Surgical History Surgery Date(Month/Year) back surgery Hospitalization History Reason Date(Month/Year) [facility]- swollen [facility]
--- OUTSIDE RECORDS SUMMARY | 2025-05-01 13:02 | XMS_ITS | Encounter Summary ---
Author Organization [employer] Address [address] [place] [address] Care Team Providers Care Medical Transcription Radiology Name Role Phone Kristi Warren Primary Care Provider [phone] Encounter Details Date Type Department Care Team (Late st Contact Info) Description 08/12/2024 Telephone [facility] [address] [place], [place] [phone] Kristi Warren ANP [address] [place] [address] Social History Tobacco Use Types Packs/Day Years [...] Description 06/12/2025 1:00 PM EDT Office Visit [facility] [address] [place] [address] Kristi Warren ANP [address] [place] [address] documented as of this encounter Goals Goal [...] documented as of this encounter Care Teams Medical Transcription Radiology Relationship Specialty Start Date End Date Kristi Warren ANP [address] [place] [address] PCP - General Family Medicine 03/24/20 [facility] 08/09/24 12/19/24 [facility] 12/09/24 documented as of this encounter
== END ==
LOC: HO.CARD 12:48
PROVIDERS: PCP Nurse Practitioner Primary Care; Visit Provider Nurse Practitioner Primary Care
DX: I95.9 Hypotension, unspecified (principal)
CPT/HCPCS: 93306

== ENCOUNTER → 2025-05-01 12:54 | Outpatient (BNV) | payer OTHER, SELFPAY | PROVIDERS: PCP Nurse Practitioner Primary Care; Visit Provider Internal Medicine Cardiovascular Disease | DX: I42.2 Other hypertrophic cardiomyopathy (principal); I51.89 Other ill-defined heart diseases | CPT/HCPCS: 93306 ==

== ENCOUNTER 2025-05-16 13:45 | Outpatient (AMB) | payer OTHER, SELFPAY ==
--- OUTSIDE RECORDS SUMMARY | 2025-05-16 13:50 | XMS_ITS | Encounter Summary ---
Author Organization [facility], Address [address] [place] [address] Phone Care Team Providers Care Laborer Laboratory Name Role Phone Unavailable Primary Care Provider Unavailabl e Encounter Details Date Type Department Care Team (Late st Contact Info) Description 07/30/2024 Documentation Only [facility], - Angel Caicedo [address] [place] [phone] Iona Salas [address] [place] [address] Social History Tobacco Use Types [...]
--- OUTSIDE RECORDS SUMMARY | 2025-05-16 13:50 | XMS_ITS | Continuity of Care Document ---
Author Name [facility] Address [address] [place] [address] Organization Unknown Address [address] [place] [address] Medications No known medications Problems No known problems
--- OUTSIDE RECORDS SUMMARY | 2025-05-16 13:50 | XMS_ITS | Patient Health Record ---
Author Organization [facility] Address [address] [place] [address] Care Team Providers Care Metalizing Machine Operator Automatic Name Role Phone Kristi Warren Primary Care Provider Fan Simons Unavailable [phone] Allergies No Known Allergies Reason For Referral [...] Problem Acquired hammer toe of right foot (83645298418469 05) Other hammer toe(s) (acquired), right foot (M20.41) Active confirmed Problem Type 2 diabetes mellitus with peripheral angiopathy (296544997) Type 2 diabetes mellitus with diabetic peripheral angiopathy without gangrene (E11.51) Active confirmed Problem Acquired hammer toe of left foot (66564396405693 03) Other hammer toe(s) (acquired), left foot (M20.42) Active confirmed Plan Of Treatment Pending Test Test Name Order Date [id number]-WPDHJWS NAIL, 6 OR MORE 09/14/2020 41178-QWHNMCL NAIL, 6 OR MORE 12/14/2020 74962-TEVSPIF NAIL, 6 OR MORE 02/22/2021 25040-AQWMQQN NAIL, 6 OR MORE 04/29/2021 43042-KDWAONO NAIL, 6 OR MORE 08/11/2021 65954-ZLSGTDN NAIL, 6 OR MORE 10/20/2021 39731-DBWFKDD NAIL, 6 OR MORE 12/30/2021 27765-DBGTNZN NAIL, 6 OR MORE 03/23/2022 22337-VFOWJSO NAIL, 6 OR MORE 06/06/2022 15992-HBFC SKIN LESIONS, OVER 4 06/06/20 22 19268-DDOQ SKIN LESIONS, OVER 4 12/31/19 22 33562-BTPM SKIN LESIONS, OVER 4 03/23/20 22 48303-KCJY SKIN LESIONS, OVER 4 10/20/19 22 39911-EIFK SKIN LESIONS, OVER 4 08/11/20 21 08716-HRRO SKIN LESIONS, OVER 4 04/29/20 21 44704-CYIM SKIN LESIONS, OVER 4 02/23/20 21 54266-AQGK SKIN LESIONS, OVER 4 12/15/19 21 78648-HFYD SKIN LESIONS, OVER 4 09/14/20 20 Insurance Providers Payer Name Payer Address Payer Phone Subscriber Number Group Number Insured Name Patient Relationship to Insured Coverage Start Date Coverage End Date [facility] SCO Claims [address] [place] [id number] [phone] [id number] Albert Baeza Self - patient is the insured Medical (General) History Medical History History ICD Code Diabetic Surgical History Surgery Date(Month/Year) back surgery Hospitalization History Reason Date(Month/Year) [facility]- swollen legs
--- OUTSIDE RECORDS SUMMARY | 2025-05-16 13:50 | XMS_ITS | Encounter Summary ---
Author Organization [employer] Address [address] [place] [address] Care Team Providers Care Environmental Science Technician Name Role Phone Kristi Warren Primary Care Provider [phone] Encounter Details Date Type Department Care Team (Late st Contact Info) Description 08/12/2024 Telephone [facility] [address] [place], [place] [phone] Kristi Warren ANP [address] [place] [address] Social History Tobacco Use Types Packs/Day Years [...] Description 06/12/2025 1:00 PM EDT Office Visit [facility] [address] [place] [address] Kristi Warren ANP [address] [place] [address] documented as of this encounter Goals Goal Patient Goal Type Associated Problems Recent Progress Patient-Stated? Author Blood Pressure < 140/90 Blood Pressure 100/57(2024 12:56 PM EDT) No Mike Harris, PharmD Hemoglobin A1c < 7.5 Result Component 6.5( 3:05 PM EDT) No Mike Harris, PharmD documented as of this encounter Visit Diagnoses Not on filedocumented in this encounter Additional Health Concerns Assessment Noted Time PHQ-9 Depression Total Score: 13 024 1:24 PM EDT documented as of this encounter Care Teams Environmental Science Technician Relationship Specialty Start Date End Date Kristi Warren ANP [address] [place] [address] PCP - General Family Medicine 03/24/20 [facility] 08/09/24 12/19/24 [facility] 12/09/24 documented as of this encounter
[2025-05-16 14:01] VITALS: PULSE 76
--- NOTE | 2025-05-16 14:01 | A.OFFVIS_ITS ---
Vital Signs 05/16/25 14:01 05/16/25 16:32 Height 5 ft 6 in Weight 147 lb 7.828 oz BMI 23.8 BP 106/62 Blood Pressure Location Lt brachial Position Sitting Pulse 76 76 Pulse Source Pulse Oximeter Pulse Oximeter Intake Visit Reasons: f/up echo Intake Note: follow up echo, pt complains of Neck pain. Salesforce Developer Required: Yes Salesforce Developer Name: Tyrone Chang [id number] Gia Paid Search Marketing Strategist: Paid Search Marketing Strategist Present Accompanied by: Family/Other Allergies No Known Allergies (No Known Allergies*) Allergy (Verified 04/15/25 15:47) Medication List - Last Reconciled 05/16/25 by Casper Fox NP acetaminophen (Tylenol Extra Strength) 500 mg PO Q6H PRN arm brace (Wrist Brace Large) As directed aspirin (Adult Low Dose Aspirin) 81 mg PO BEDTIME atorvastatin 40 mg PO DAILY blood sugar diagnostic As directed calcitriol 0.25 mcg PO MOWEFR@0900 clotrimazole 1% 1 appl topical BID empagliflozin (Jardiance) 25 mg PO DAILY ferrous sulfate 325 mg PO BID furosemide (Lasix) 40 mg PO DAILY Held on 04/16/25. Instructions: Doctor's Order metoprolol succinate ER 25 mg PO DAILY Held on 04/18/25. Instructions: Doctor's Order pen needle, diabetic As directed pen needle, diabetic (UltiCare Pen Needle) As directed testosterone (AndroGel) 3 pumps transdermal DAILY 28 days trazodone 200 mg PO BEDTIME HPI Comments Details: This is a 75-year-old male patient coming in for a follow-up visit booked by his PCP status post an echocardiogram. A boilermaker's assistant was used throughout the visit. Patient with a history of hypertension, hyperlipidemia, diabetes, HFrEF, and nonobstructive CAD. At 1 point there was questions about patient having AFib and was put on Eliquis but had hematuria and is no longer on it. There was plans for a Holter study however patient has not completed this. Recently there has been some nurse visits with the patient for low blood pressures and dizziness and for this, his Lasix and metoprolol has been on hold. Since then, patient states that he has been doing well cardiac mandujano without any symptoms of exertional chest pain, shortness of breath, palpitations, dizziness, orthopnea, PND, leg edema, presyncope or syncope. Patient states that he has been compliant with all his medications. Patient's main complaint today has been about his neck pain which patient is frustrated about. [facility] Medical History (Updated 05/16/25 @ 16:28 by Casper Fox NP) Atherosclerotic cardiovascular disease Encounter for assessment of decision-making capacity Pneumonia Encounter for medication monitoring Depression Restless leg syndrome Peripheral neuropathy Personal history of nicotine dependence History of non-ST elevation myocardial infarction (NSTEMI) (~09/2018) History of cardiac arrest (~09/2018) Other and unspecified hyperlipidemia Essential hypertension Type 2 diabetes mellitus with unspecified complications Primary osteoarthritis, left hand Primary osteoarthritis, right hand Surgical History History of epidermal inclusion cyst excision (~07/2021) History of hand surgery (~03/2015) History of cataract surgery (~2017) History of cardiac catheterization (~10/2018) Family History Mother No problems noted. Mother No problems noted. 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 Review of Systems Const Denies daytime sleepiness, Denies difficulty sleeping, Reports poor appetite, Denies snoring, Denies stops breathing during sleep and Denies weakness ENT Reports neck pain Card Denies chest pain, Denies rapid heart rate, Denies irregular heart rhythm, Den ies claudication, Denies leg edema, Denies lightheadedness, Denies palpitations, Denies dyspnea, Denies dyspnea on exertion, Denies orthopnea, Denies paroxysmal nocturnal dyspnea and Denies slow heart rate Resp Denies cough, Denies dyspnea, Denies dyspnea on exertion and Denies snoring GI Reports no additional complaints, Denies hematochezia, Denies change in stool character and Denies dyspepsia Musc Denies abnormal gait, Denies muscle weakness, Reports neck pain and Denies numbness Neuro Denies abnormal gait, Denies numbness and Denies weakness Endo Denies palpitations Physical Exam Vital Signs: Last Vital Signs Pulse 76 05/16/25 16:32 BP 106/62 05/16/25 16:32 Const General: cooperative, comfortable and no acute distress Orientation/consciousness: patient oriented x3 HEENT Head: Yes normal to inspection Neck Neck: Yes normal visual inspection, Yes trachea midline and Yes supple Chest Chest palpation & inspection: normal inspection of the chest Resp Effort & Inspection: normal respiratory effort Auscultation: clear to auscultation bilaterally, no crackles, no rales, no rhonchi and no wheezes Cardio Jugular venous distension: no JVD Palpation: normal PMI Rate: regular rate Rhythm: regular rhythm Heart sounds: S1 normal heart sound present, S2 normal heart sound present, no click, no gallops, no murmurs and no rubs Peripheral pulses: Peripheral pulses 2+ throughout GI Inspection: Yes normal to inspection Palpation (GI): Soft to palpation Auscultation: normal bowel sounds Skin General skin exam: no rashes or lesions noted Neuro General: patient oriented x3 Extrem General: Yes normal to inspection, No no pedal edema and No calf tenderness Psych Appearance: grossly normal Mental Status: mental status grossly normal Speech and movement: Normal speech and movement present Assessment & Plan Assessment & Plan (1) Atherosclerotic cardiovascular disease: Code(s): I25.10 - Atherosclerotic heart disease of [place] coronary artery without angina pectoris Category: Medical Plan: Cardiac catheterization in 2019 showed nonobstructive coronary artery disease. 05/01/2025-patient had an echo study with no significant change from prior study showing low-normal LV systolic function between 50-55% with impaired relaxation filling pattern, mildly dilated ascending aorta at 4.3 cm. Clinically euvolemic and without any cardiac symptoms. Continue aspirin and statin therapy with an LDL goal less than 70. (2) PAF (paroxysmal atrial fibrillation): Code(s): I48.0 - Paroxysmal atrial fibrillation Category: Medical Plan: Emphasized on completing the Holter study for appropriate management. (3) Essential hypertension: Code(s): I10 - Essential (primary) hypertension Category: Medical Plan: Blood pressure today is low normal. Continue to hold Lasix and metoprolol. Advised to continue with low-salt diet, fluid restriction, and daily weight monitoring. Advised monitoring blood pressures with a goal less than 130/80. (4) Other and unspecified hyperlipidemia: Code(s): E78.5 - Hyperlipidemia, unspecified Category: Medical Plan: As above. Advised on heart healthy diet, regular exercise as tolerated, med compliance, and management of vascular risk factors. Follow up with primary pit shovel operator in 6 months. In the interim, patient will call the office with any concerns or change in symptoms. Advised to seek PCP care in regards to neck pain, until then advised using [id number] topical gels for pain. This note was generated using voice recognition software. While every effort has been made to ensure accuracy and proper medical transcriptionist, there may be occasional errors that could affect the content or meaning of the described symptoms. Coding Level of Care Code Est Pt Level 4 (62310) Complex EM visit Add On G2211 Diagnoses Atherosclerotic cardiovascular disease I25.10 PAF (paroxysmal atrial fibrillation) I48.0 Essential hypertension I10 Other and unspecified hyperlipidemia E78.5 Time Spent (min) 31 Comment Time spent in reviewing the chart, test results, assessment, counseling and documentation.
[2025-05-16 16:32] VITALS: BP 106/62; PULSE 76; BMI 23.8
== END 2025-05-16 14:36 | disposition home or self-care (01) ==
LOC: HO.HCS 13:45
DX: I25.10 Atherosclerotic heart disease of native coronary artery without angina pectoris (principal); I48.0 Paroxysmal atrial fibrillation; I10 Essential (primary) hypertension; E78.5 Hyperlipidemia, unspecified
CPT/HCPCS: 99214; G2211

== ENCOUNTER → 2025-05-16 13:45 | Outpatient (BNVA) | payer OTHER, SELFPAY | DX: I25.10 Atherosclerotic heart disease of native coronary artery without angina pectoris (principal); I48.0 Paroxysmal atrial fibrillation; I10 Essential (primary) hypertension; E78.5 Hyperlipidemia, unspecified | CPT/HCPCS: 99212 ==

== ENCOUNTER 2025-05-27 08:44 | Outpatient (REF) | payer OTHER, SELFPAY ==
--- OUTSIDE RECORDS SUMMARY | 2025-05-27 09:31 | XMS_ITS | Encounter Summary ---
Author Organization [facility], Address [address] [place] [address] Phone Care Team Providers Care Supervisor Lathing Name Role Phone Unavailable Primary Care Provider Unavailabl e Encounter Details Date Type Department Care Team (Late st Contact Info) Description 07/30/2024 Documentation Only [facility], - Angel Caicedo [address] [place] [id number] Iona Salas [address] [place] [address] Social History Tobacco Use Types [...]
--- OUTSIDE RECORDS SUMMARY | 2025-05-27 09:31 | XMS_ITS | Encounter Summary ---
Author Organization [employer] Address [address] [place] [address] Care Team Providers Care Information Technology Director Name Role Phone Kristi Warren Primary Care Provider [phone] Encounter Details Date Type Department Care Team (Late st Contact Info) Description 08/12/2024 Telephone [facility] [address] [place], [place] [phone] Kristi Warren ANP [address] [place] [address] Social History Tobacco Use Types Packs/Day Years [...] Description 06/12/2025 1:00 PM EDT Office Visit [facility] [address] [place] [address] Kristi Warren ANP [address] [place] [address] documented as of this encounter Goals Goal [...] documented as of this encounter Care Teams Information Technology Director Relationship Specialty Start Date End Date Kristi Warren ANP [address] [place] [address] PCP - General Family Medicine 03/24/20 [facility] 08/09/24 12/19/24 [facility] 12/09/24 documented as of this encounter
--- OUTSIDE RECORDS SUMMARY | 2025-05-27 09:31 | XMS_ITS | Patient Health Record ---
Author Organization [facility] Address [address] [place] [address] Care Team Providers Care Architecture Instructor Name Role Phone Kristi Warren Primary Care Provider Fan Simons Unavailable [phone] Allergies No Known Allergies Reason For Referral [...] Problem Acquired hammer toe of right foot ([id number] 05) Other hammer toe(s) (acquired), right foot (M20.41) Active confirmed Problem Type 2 diabetes mellitus with peripheral angiopathy (010085341) Type 2 diabetes mellitus with diabetic peripheral angiopathy without gangrene (E11.51) Active confirmed Problem Acquired hammer toe of left foot ([id number] 03) Other hammer toe(s) (acquired), left foot (M20.42) Active confirmed Plan Of Treatment Pending Test Test Name Order Date [id number] NAIL, 6 OR MORE 09/14/2020 [id number] NAIL, 6 OR MORE 12/14/2020 [id number] NAIL, 6 OR MORE 02/22/2021 [id number] NAIL, 6 OR MORE 04/29/2021 30686-SLHQQCP NAIL, 6 OR MORE 08/11/2021 [id number] NAIL, 6 OR MORE 10/20/2021 [id number] NAIL, 6 OR MORE 12/30/2021 87449-WEKUJWX NAIL, 6 OR MORE 03/23/2022 61326-UEOKOIM NAIL, 6 OR MORE 06/06/2022 09848-UGWA SKIN LESIONS, OVER 4 06/06/20 22 84783-IYSM SKIN LESIONS, OVER 4 12/31/19 22 14855-SSTN SKIN LESIONS, OVER 4 03/23/20 22 28199-TRLE SKIN LESIONS, OVER 4 10/20/19 22 35762-RZNT SKIN LESIONS, OVER 4 08/11/20 21 48899-JWQA SKIN LESIONS, OVER 4 04/29/20 21 64726-JPPN SKIN LESIONS, OVER 4 02/23/20 21 45205-TVUP SKIN LESIONS, OVER 4 12/15/19 21 90014-SNUL SKIN LESIONS, OVER 4 09/14/20 20 Insurance Providers Payer Name Payer Address Payer Phone Subscriber Number Group Number Insured Name Patient Relationship to Insured Coverage Start Date Coverage End Date [facility] [employer] Claims [address] [place] [phone] [id number] Albert Baeza Self - patient is the insured Medical (General) History Medical History History ICD Code Diabetic Surgical History Surgery Date(Month/Year) back surgery Hospitalization History Reason Date(Month/Year) [facility]- swollen legs
[2025-05-27 09:51] LABS: Hematocrit 47.3 % (42.0-52.0); Hemoglobin 16.4 g/dl (14.0-18.0); Mean Corpuscular HGB Conc 34.7 g/dl (31.0-36.0); Mean Corpuscular Hemoglobin 35.1 pg (27.0-33.0); Mean Corpuscular Volume 101.3 fL (80.0-98.0); NRBC Abs Auto 0.000 X10*3/uL (0.0-0.012); NRBC Pct Auto 0.0 /100WBC (0.0-0.2); Platelet Count 187 X10*3/uL (160-400); Red Blood Count 4.67 X10*6/uL (4.60-5.80); White Blood Count 7.3 X10*3/uL (4.8-10.8)
[2025-05-27 10:25] LABS: Prostate Specific Antigen 0.38 ng/mL (<0.05-4.0)
== END 2025-05-27 08:45 | disposition home or self-care (01) ==
LOC: HO.LAB 08:44
PROVIDERS: PCP Nurse Practitioner Primary Care; Visit Provider Urology
DX: E11.69 Type 2 diabetes mellitus with other specified complication (principal); N52.1 Erectile dysfunction due to diseases classified elsewhere; Z12.5 Encounter for screening for malignant neoplasm of prostate
CPT/HCPCS: 36415; 84153; 84403; 85027

== ENCOUNTER 2025-06-03 15:23 | Outpatient (AMB) | payer OTHER, SELFPAY ==
--- NOTE | 2025-06-03 15:29 | MHC.OFFVIS ---
Intake Visit Reasons: 6m/labs Intake Note: Patient is present for follow up Urology Medication:TESTOSTERONE Antibiotic Allergy:NONE Blood Thinner:NONE Labs done 05/27/25 : PSA 0.38, Testosterone 300 Cigar Tobacco Rehandler Required: No Accompanied by: Self / Same As Patient Allergies No Known Allergies (No Known Allergies*) Allergy (Verified 06/03/25 15:31) HPI Comments Details: Albert is a pleasant male. He is a patient of Dr. Warren. He is seen for the following urologic conditions - hypogonadism - erectile dysfunction Bermudian translation provided by qualified medical apparatus model maker Discussion with patient. He is having trouble obtaining appropriate level and may not be applying AndroGel properly. Does not tolerate injections. Recommend trial testosterone pellets Should apply 1 pump to each arm for total of 3 pumps daily When applying will need to massage into skin until dry Hypogonadism Ongoing management Current therapy - AndroGel 3 pumps daily Laboratories 07/28 T 400, PSA 0.6, 05/29 T195 PSA 2.5, 08/29 T340 PSA 1.2, 11/30 T 500 P 1.4 - 01/28 T 172 P 0.83, 06/30 T 296 0.5 40, 12/01 179 1.0, 04/30 271 0.65, 01/30 222 0.6 H 44, 10/01 215 0.5 Continue with topical therapy Repeat lab work in 6 months Erectile dysfunction Multifactorial History of diabetes and vascular disease with prior smoking history [facility] Medical History (Updated 05/16/25 @ 16:28 by Casper Fox NP) Atherosclerotic cardiovascular disease Encounter for assessment of decision-making capacity Pneumonia Encounter for medication monitoring Depression Restless leg syndrome Peripheral neuropathy Personal history of nicotine dependence History of non-ST elevation myocardial infarction (NSTEMI) (~09/2018) History of cardiac arrest (~09/2018) Other and unspecified hyperlipidemia Essential hypertension Type 2 diabetes mellitus with unspecified complications Primary osteoarthritis, left hand Primary osteoarthritis, right hand Surgical History History of epidermal inclusion cyst excision (~07/2021) History of hand surgery (~03/2015) History of cataract surgery (~2017) History of cardiac catheterization (~10/2018) Family History Mother No problems noted. Mother No problems noted. 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 Review of Systems Const Denies chills and Denies fever(s) Card Reports no additional complaints and Denies syncope Resp Denies cough GI Denies abdominal pain and Denies heartburn Reports as per HPI and Denies change in libido Neuro Denies syncope Psych Denies change in libido Endo Denies change in libido Physical Exam Const General: cooperative, healthy appearing, comfortable and no acute distress Orientation/consciousness: patient oriented x3 HEENT Face and sinus: Yes normal facial exam Mouth: moist mucous membranes Neck Neck: Yes normal visual inspection, Yes full ROM and Yes trachea midline Chest Chest palpation & inspection: normal inspection of the chest Resp Effort & Inspection: normal respiratory effort, able to speak in complete sentences and no respiratory distress GI Inspection: Yes normal to inspection Back/Spine/Pelvis Cervical Spine: normal cervical lordosis Thoracic/Lumbar Spine: thoracic and lumbar spine normal to inspection Skin General skin exam: no rashes or lesions noted Neuro General: patient oriented x3, gait normal, tone normal and moves all extremities Extrem General: Yes normal to inspection and Yes capillary refill normal Assessment & Plan Assessment & Plan (1) Erectile dysfunction associated with type 2 diabetes mellitus: Code(s): E11.69 - Type 2 diabetes mellitus with other specified complication; N52.1 - Erectile dysfunction due to diseases classified elsewhere Category: Medical (2) Hypogonadism in male: Code(s): E29.1 - Testicular hypofunction Category: Medical Plan Gel not working Has needle phobia Plan trial of testosterone pellets Patient Instructions: This note is constructed using voice recognition software. While every effort has been made to ensure accuracy rubber moulding machine operator errors may have been included. Imaging studies, laboratory and physical exam results were discussed and reviewed in detail. No major barriers to patient understanding were identified. An opportunity to ask questions regarding the treatment plan was provided. All questions were answered. The patient expressed understanding and agreement with the above treatment plan. The patient is aware they should contact our office by phone for worsening of their current condition or the appearance of new urologic symptoms. Compliance is encouraged with any medications and followup testing that is ordered. It is a privilege to participate in the urologic care of your patient. If you have any questions or concerns regarding treatment for the above conditions, or other urologic issues, please do not hesitate to contact me. The office telephone contact is [phone]. Sincerely, Dr Mango Ragland MD, [facility] - Urology Compassionate Specialist Care for the Genitourinary System Coding Level of Care Code Est Pt Level 4 (63548) Diagnoses Erectile dysfunction associated with type 2 diabetes mellitus E11.69; N52.1 Hypogonadism in male E29.1
--- OUTSIDE RECORDS SUMMARY | 2025-06-03 16:16 | XMS_ITS | Encounter Summary ---
Author Organization [employer] Address [address] [place] [address] Care Team Providers Care Open Hearth Furnace Laborer Name Role Phone Kristi Warren Primary Care Provider [phone] Encounter Details Date Type Department Care Team (Late st Contact Info) Description 08/15/2024 Telephone [facility] [address] [place], [place] [phone] Kristi Warren ANP [address] [place] [address] Social History Tobacco Use Types Packs/Day Years [...] 08/15/2024 11:11 AM EST TC from Viktoria William PRODUCT CONTROLLER of pt stated that pt doesn't have no more meds due to pt is taking doseof trazodone of 7 days in 1 night also taking a lot of gabapentin in a Day and regular medication pt is crushing them and put in on sink is no taking none of his medication. Pt used [facility] and he is not due until August 30. [facility] requesting a call from PCP to discuss pt medication. PCP DR. Warren documented in this encounter Plan of Treatment Upcoming Encounters Date Type Department Care Team (Late st Contact Info) Description 06/12/2025 1:00 PM EDT Office Visit [facility] [address] [place] [address] Kristi Warren ANP [address] [place] [address] documented as of this encounter Goals Goal Patient Goal Type Associated Problems Recent Progress Patient-Stated? Author Blood Pressure < 140/90 Blood Pressure 100/57(2024 12:56 PM EDT) No Mike Harris PharmD Hemoglobin A1c < 7.5 Result Component 6.5( 5 3:05 PM EDT) No Mike Harris PharmD documented as of this encounter Visit Diagnoses Not on filedocumented in this encounter Additional Health Concerns Assessment Noted Time PHQ-9 Depression Total Score: 13 024 1:24 PM EDT documented as of this encounter Care Teams Open Hearth Furnace Laborer Relationship Specialty Start Date End Date Kristi Warren ANP [address] [place] [id number] PCP - General Family Medicine 03/24/20 [facility] 08/09/24 12/19/24 [facility] 12/09/24 documented as of this encounter
--- OUTSIDE RECORDS SUMMARY | 2025-06-03 16:16 | XMS_ITS | Encounter Summary ---
Author Organization [employer] Address [address] [facility] 7t [place] [address] Care Team Providers Care Stemhole Borer Name Role Phone Kristi Warren Primary Care Provider [phone] Reason for Referral * Medications - Closed Specialty Diagnoses / Procedures Referred By Vishal de la torre Referred To Contact Diagnoses Diabetic nephropathy associated with type 2 diabetes mellitus (CMS/HCC) Kristi Warren ANP [address] [place] [address] Phone: tel: fax: Referral ID Status Reason Start Date Expiration Date Visits Re quested Visits Authorized [id number] Closed 1 1 Reason for Visit * Reason Onset Date Comments Prior Authorization 06/02/2025 Encounter Details Date Type Department Care Team (Late st Contact Info) Description 06/02/2025 Refill [facility] [address] [place] [address] Katiana Villarreal, RN [address] [place] [address] Diabetic nephropathy associated with type 2 diabetes mellitus (CMS/HCC) (Primary Dx) Social History Tobacco Use Types Packs/Day Years Used Date Smoking Tobacco: Former Cigarettes Passive Smoke Exposure: Never Smokeless Tobacco: Never Comments:Reports having an o ccasional cigarette but is not routinely smoking. Alcohol Use Standard Drinks/Week Comments Not Currently 0 (1 standard drink = 0.6 oz pur e alcohol) Depression Answer Date Recorded Patient Health Questionnaire-9 Score 0 01/07/2025 Patient Health Questionnaire-9 Score 0 01/07/2025 Last PHQ-9: Questionnaire Data Not on file 0 01/07/2025 Housing Stability Answer Date Recorded What is your housing situation today? I have roseanna sing 05/24/[address] you li ve. Do you have problems with any of the following? None of the above 05/24/2024 Food Insecurity Answer Date Recorded Within the past 12 months, y ou worried that your food would run out before you got money to buy more: Never True 03/13/2025 Within the past 12 months,th e food you bought just didn't last and you didn't have enough money to get more: Never True 02/2025 Transportation Answer Date Recorded In the past 12 months, has l ack of transportation kept you from medical appts, meetings, work or from getting things needed for daily living? No 03/13/2025 Utilities Answer Date Recorded In the past 12 months, has t he electric, gas, oil or water company threatened to shut off services in your home? No 03/13/2025 Depression Answer Date Recorded Patient Health Questionnaire-2 Score 0 01/07/2025 Internet Access Answer Date Recorded Internet Access Q1 Yes 03/13/2025 Internet Access Q2 Not on file 03/13/2025 Sex and Gender Information Value Date Recorded Sex Assigned at Male 08/08/2022 10:19 AM EDT Legal Sex Male 10:19 AM EDT Gender Identity Male 08/08/2022 10:19 AM EDT Sexual Orientation Don't know 08/08/2022 10 :19 AM EDT documented as of this encounter Miscellaneous Notes * Telephone Encounter - Katiana Villarreal RN - 06/02/2025 1:44 PM EDT Received PA request for Sherley 2 sensors. However, they will be discontinued by the retouching operator theend of next month. Queued Sherley 2 Plus sensors and completed PA packet for 2 plus sensors to be placed on PCP's desk. documented in this encounter Plan of Treatment Upcoming Encounters Date Type Department Care Team (Late st Contact Info) Description 06/12/2025 1:00 PM EDT Office Visit [facility] [address] [place] [address] Kristi Warren ANP [address] [place] [address] documented as of this encounter Goals Goal Patient Goal Type Associated Problems Recent Progress Patient-Stated? Author Blood Pressure < 140/90 Blood Pressure 100/57(2024 12:56 PM EDT) No Mike Harris, PharmLourdes Hemoglobin A1c < 7.5 Result Component 6.5( 3:05 PM EDT) No Mike Harris PharmD documented as of this encounter Visit Diagnoses Diagnosis Diabetic nephropathy associated with type 2 diabetes mellitus (CMS/[facility])- Primary documented in this encounter Additional Health Concerns Assessment Noted Time PHQ-9 Depression Total Score: 0 01/08/20 1:15 PM EDT documented as of this encounter Care Teams Stemhole Borer Relationship Specialty Start Date End Date Kristi Warren ANP [address] [place] [address] PCP - General Family Medicine 03/24/20 [facility] Care 12/09/24 documented as of this encounter
--- OUTSIDE RECORDS SUMMARY | 2025-06-03 16:16 | XMS_ITS | Encounter Summary ---
Author Organization [employer] Address [address] [facility] [address] 7t [place] [address] Care Team Providers Care Client Service Coordinator Name Role Phone Kristi Warren Primary Care Provider [phone] Encounter Details Date Type Department Care Team (Late st Contact Info) Description 08/12/2024 Telephone [facility] [address] [place], [place] [phone] Kristi Warren ANP [address] [place] [address] Social History Tobacco Use Types Packs/Day Years [...] Description 06/12/2025 1:00 PM EDT Office Visit [facility] [address] [place] [address] Kristi Warren ANP [address] [place] [address] documented as of this encounter Goals Goal [...] documented as of this encounter Care Teams Client Service Coordinator Relationship Specialty Start Date End Date Kristi Warren ANP [address] [place] [address] PCP - General Family Medicine 03/24/20 [facility] 08/09/24 12/19/24 [facility] 12/09/24 documented as of this encounter
--- OUTSIDE RECORDS SUMMARY | 2025-06-03 16:17 | XMS_ITS | Encounter Summary ---
Author Organization [employer] Address [address] [facility] 7t [place] [address] Care Team Providers Care Fish Cutting Machine Operator Name Role Phone Kristi Warren Primary Care Provider Reason for Visit * Reason Comments Med Refill Encounter Details Date Type Department Care Team (Late Contact Info) Description 11/18/2022 Refill [facility] [address] [place], [place] [phone] Kristi Warren ANP [address] [place], [place] [phone] Type 2 diabetes mellitus with diabetic nephropathy, with long-term current use of insulin ([facility]) (Primary Dx) Social History Tobacco Use Types [...] as of this encounter Plan of Treatment Upcoming Encounters Date Type Department Care Team (Late Contact Info) Description 06/12/2025 1:00 PM EDT Office Visit [facility] [address] [place], [place] [phone] Kristi Warren ANP [address] [place] [address] documented as of this encounter Visit Diagnoses Diagnosis Type 2 diabetes mellitus with diabetic nephropathy, with long-term current use of insulin ([facility])- Primary documented in this encounter Care Teams Fish Cutting Machine Operator Relationship Specialty Start Date End Date Kristi Warren ANP [address] [place] [address] PCP - General Family Medicine 03/24/20 [facility] 08/09/24 12/19/24 [facility] 12/09/24 documented as of this encounter
--- OUTSIDE RECORDS SUMMARY | 2025-06-03 16:17 | XMS_ITS | Encounter Summary ---
Author Organization [employer] [facility] Address [address] [facility] 7t [place] [address] Care Team Providers Care Casting Director Name Role Phone Kristi Warren Primary Care Provider [phone] Encounter Details Date Type Department Care Team (Late Contact Info) Description 10/19/[address] [facility] MED[facility] [address] [place] [phone] Mona Porras LPN Social History Tobacco Use [...] Description 06/12/2025 1:00 PM EDT Office Visit [facility] [address] [place] [address] Kristi Warren ANP [address] [place], [place] [phone] documented as of this encounter Procedures Procedure Name Priority Date/Time Associated Diagnosis Comments XR FOOT 1-2 VIEWS RIGHT Routine 11/07/2022 11:42 AM EST documented in this encounter Results * XR Foot 1-2 Views Right (11/07/2022 11:42 AM EST) Anatomical Region Laterality Modality Lower Extremities, Foot Right Radiogra phic Imaging 11/07/2022 11:4 2 AM EST Narrative 11/09/2022 8:38 PM EST [address] [address] XRay Report Signed Patient: Albert Baeza MR#: [id number] : 1950 Acct:[id number] Age/Sex: 72 / M ADM Date: 11/07/22 Loc: HO.XRAY Attending Dr: Ophelia Hubbard NP Ordering Physician: OPHELIA HUBBARD NP Date of Service: 11/07/22 Procedure(s): XR foot RT 2V Accession Number(s): [id number] cc: OPHELIA HUBBARD NP EXAMINATION: XR FOOT, [...] MD in OV> 11/09/222034 DD/ 1142 TD/TT: Trade Sales Assistant: ALBERT Procedure Note Donotuseinterpreter, Image - 11/09/[address] [address] XRay Report Signed Patient: Albert BaezaMR#: [id number] : 1950Acct:[id number] Age/Sex: 72 / MADM Date: 11/07/22 Loc: [facility] Attending Dr: Ophelia Hubbard NP Ordering Physician: OPHELIA HUBBARD NP Date of Service: 11/07/22 Procedure(s): XR foot RT 2V Accession Number(s): [id number] cc: OPHELIA HUBBARD NP EXAMINATION: XR FOOT, [...] MD in OV> 11/09/222034 DD/ 1142 TD/TT: Trade Sales Assistant: ALBERT Authorkamille Provider Result Type Result Stat [facility] External Provider IMG XR PROCEDURES Edited Result - Final documented in this encounter Visit Diagnoses Not on filedocumented in this encounter Care Teams Casting Director Relationship Specialty Start Date End Date Kristi Warren ANP [address] [place] [address] PCP - General Family Medicine 03/24/20 [facility] 08/09/24 12/19/24 [facility] Care 12/09/24 documented as of this encounter
--- OUTSIDE RECORDS SUMMARY | 2025-06-03 16:17 | XMS_ITS | Encounter Summary ---
Author Organization [employer] Address [address] [facility] 7t [place] [address] Care Team Providers Care Skein Winder Name Role Phone Kristi Warren Primary Care Provider [phone] Reason for Visit * Reason Onset Date Comments Durable Medical Equipment 07/27/2023 Encounter Details Date Type Department Care Team (Late st Contact Info) Description 07/27/2023 Telephone [facility] [address] [place] [address] Kristi Warren ANP [address] [place] [address] Durable Medical Equipment Social History Tobacco Use [...] 07/27/2023 3:44 PM EDT Tc from [facility] requesting DME for pt on glucometer kit. Any question contact [facility] documented in this encounter Plan of Treatment Upcoming Encounters Date Type Department Care Team (Late st Contact Info) Description 06/12/2025 1:00 PM EDT Office Visit [facility] [address] [place] [address] Kristi Warren ANP [address] [place] [address] documented as of this encounter Visit Diagnoses Not on filedocumented in this encounter Care Teams Skein Winder Relationship Specialty Start Date End Date Kristi Warren ANP [address] [place] [address] PCP - General Family Medicine 03/24/20 [facility] 08/09/24 12/19/24 [facility] 12/09/24 documented as of this encounter
--- OUTSIDE RECORDS SUMMARY | 2025-06-03 16:17 | XMS_ITS | Encounter Summary ---
Author Organization [facility], Address [address] [place] [address] Phone Care Team Providers Care Proofsheet Corrector Name Role Phone Unavailable Primary Care Provider Unavailabl e Encounter Details Date Type Department Care Team (Late st Contact Info) Description 01/10/2024 Documentation Only [facility], [address] [place] [address] Iona Salas [address] [place] [address] Social History Tobacco Use Types [...]
--- OUTSIDE RECORDS SUMMARY | 2025-06-03 16:17 | XMS_ITS | Encounter Summary ---
Author Organization [employer] Address [address] [facility] 7t [place] [address] Care Team Providers Care Event Management Consultant Name Role Phone Kristi Warren Primary Care Provider [phone] Reason for Visit * Reason Onset Date Comments Nurse Triage 04/18/2023 Encounter Details Date Type Department Care Team ([facility] st Contact Info) Description 04/18/2023 Telephone [facility] [address] [place] [address] Kristi Warren ANP [address] [place] [address] Nurse Triage Social History Tobacco Use Types [...] 04/18/2023 3:57 PM EDT Called pt. Via [employer] foreign language interpreter [id number] Nadja. Pt. States that he had an appt. With Provider Kelvin today and he was feeling dizzy after his appt. While driving and had to car repairer pullman. Pt. States hehad some blood work done [...] accepted this outcome Please contact pt at [phone] (Romansh speaker) documented in this encounter Plan of Treatment Upcoming Encounters Date Type Department Care Team (Late st Contact Info) Description 06/12/2025 1:00 PM EDT Office Visit [facility] [address] [place] [address] Kristi Warren ANP [address] [place] [address] documented as of this encounter Visit Diagnoses Not on filedocumented in this encounter Care Teams Event Management Consultant Relationship Specialty Start Date End Date Kristi Warren ANP [address] [place] [address] PCP - General Family Medicine 03/24/20 [facility] 08/09/24 12/19/24 [facility] 12/09/24 documented as of this encounter
--- OUTSIDE RECORDS SUMMARY | 2025-06-03 16:17 | XMS_ITS | Encounter Summary ---
Author Organization [employer] Address [address] [facility] 7t [place] [address] Care Team Providers Care Day Light Relief Operator Name Role Phone Kristi Warren Primary Care Provider [phone] Reason for Visit * Reason Onset Date Comments Durable Medical Equipment 04/20/2023 Encounter Details Date Type Department Care Team (Late st Contact Info) Description 04/20/2023 Telephone [facility] [address] [place] [address] Kristi Warren ANP [address] [place] [address] Durable Medical Equipment Social History Tobacco Use [...] Description 06/12/2025 1:00 PM EDT Office Visit [facility] [address] [place] [address] Kristi Warren ANP [address] [place], [place] [phone] documented as of this encounter Visit Diagnoses Not on filedocumented in this encounter Care Teams Day Light Relief Operator Relationship Specialty Start Date End Date Kristi Warren ANP [address] [place], [place] [phone] PCP - General Family Medicine 03/24/20 [facility] 08/09/24 12/19/24 [facility] 12/09/24 documented as of this encounter
--- OUTSIDE RECORDS SUMMARY | 2025-06-03 16:17 | XMS_ITS | Encounter Summary ---
Author Organization [facility], Address [address] [place] [address] Phone Care Team Providers Care Senior Report Developer Name Role Phone Unavailable Primary Care Provider Unavailabl e Encounter Details Date Type Department Care Team (Late st Contact Info) Description 07/30/2024 Documentation Only [facility], - Angel Caicedo [address] [place] [phone] Iona Salas [address] [place] [address] Social History Tobacco Use Types [...]
--- OUTSIDE RECORDS SUMMARY | 2025-06-03 16:17 | XMS_ITS | Encounter Summary ---
Author Organization [employer] Address [address] [facility] 7t [place] [address] Care Team Providers Care Art Installer Name Role Phone Kristi Warren Primary Care Provider [phone] Reason for Visit * Reason Onset Date Comments ER Follow-up 04/22/2025 fyi 04/22/2025 Encounter Details Date Type Department Care Team (Late st Contact Info) Description 04/22/2025 Telephone [facility] MEDICINE [address] [place], [place] [phone] Kristi Warren ANP [address] [place], [place] [phone] ER Follow-up; Social History Tobacco Use Types Packs/Day Years [...] encounter Miscellaneous Notes * Telephone Encounter - Marianela Dupree RN - 04/23/2025 8:45 AM EDT Late entry from 2:30pm 04/22/25. Received call back from Ivette Nurse Rn Bsn to Dr Almazan. Pt had nurse visit last Monday04/18/25 and was instructed to hold metoprolol and furosemide. His next appt is 04/25/25 with CECILY Shirley at [facility] cardiology, and has Echo scheduled for 05/01/25. CHW/nursing to call pt and caregivers to ensure pt aware of medication changes. * Telephone Encounter - Norma Campos PharmD - 04/22/2025 11:42 AM EDT Thank you! Furosemide and metoprolol prescriptions are currently active in patient's preferred pharmacy/in [facility]. Will need to clarify medications status from Monday appointment. * Telephone Encounter - Marianela Dupree RN - 04/22/2025 11:22 AM EDT Spoke with pharmacist in office who is requesting office note from [facility] Cardiology visit on 04/18/25.Per [facility], only nursing note available for review (copied below). Per note, pt to hold metoprolol and lasix (already being held). Called [facility] Cardiology and left message for medical language specialist requesting call back to see if longer office note available, confirm med changes, confirm next appt, giveFYI regarding baclofen. Awaiting call back. Patient presented to office for EKG and BP. He was seen in the ED last week for dehydration and low BP. Today, patient's BP was taken twice: 82/48 and 90/42. Patient still c/o feeling dizzy and neckpain. EKG was performed and he was in sinus rhythmat 79 bpm. This information was reviewed by Casper. Patient is to hold metoprolol and furosemide for now and follow-up on Monday for another blood pressure check. He will have his BP monitored at home and was asked to bring in the log. * Telephone Encounter - Desean Cruz - 04/22/2025 9:20 AM EDT Patient calling to report ED visit on : Date: 04/19/25 Hospital: [facility]gent care in [facility] [place] Seen for: neck pain Symptomatic No Pt was prescribed baclofen *sick on site visit scheduled for 04/[address] Okeefe has been canceled due to noty being needed. documented in this encounter Plan of Treatment Upcoming Encounters Date Type Department Care Team (Late st Contact Info) Description 06/12/2025 1:00 PM EDT Office Visit [facility] MEDICINE [address] [place], [place] [phone] Kristi Warren ANP [address] [place], [place] [phone] documented as of this encounter Goals Goal [...] Time PHQ-9 Depression Total Score: 0 01/08/20 25 1:15 PM EDT documented as of this encounter Care Teams Art Installer Relationship Specialty Start Date End Date Kristi Warren ANP [address] [place] [address] PCP - General Family Medicine 03/24/20 [facility] Care 12/09/24 documented as of this encounter
--- OUTSIDE RECORDS SUMMARY | 2025-06-03 16:17 | XMS_ITS | Encounter Summary ---
Author Organization [facility], Address [address] [place] [address] Phone Care Team Providers Care Acoustic Warfare Analyst Name Role Phone Unavailable Primary Care Provider Unavailabl e Reason for Visit * Reason Comments Med Refill Encounter Details Date Type Department Care Team (Late st Contact Info) Description 09/15/2023 Refill [facility], [address] [place] [address] Jt Ochoa PA [address] [place] [address] Social History Tobacco Use Types [...]
--- OUTSIDE RECORDS SUMMARY | 2025-06-03 16:17 | XMS_ITS | Encounter Summary ---
Author Organization [employer] Address [address] [facility] 7t [place] [address] Care Team Providers Care Teenage Babysitter Name Role Phone Kristi Warren Primary Care Provider [phone] Reason for Visit * Reason Onset Date Comments Med Refill 04/12/2023 Encounter Details Date Type Department Care Team ([facility] st Contact Info) Description 04/12/2023 Telephone [facility] MEDICINE [address] [place] [address] Kristi Warren ANP [address] [place] [address] Med Refill Social History Tobacco Use Types [...] Description 06/12/2025 1:00 PM EDT Office Visit [facility]ICINE [address] [place] [address] Kristi Warren ANP [address] [place] [address] documented as of this encounter Visit Diagnoses Not on filedocumented in this encounter Care Teams Teenage Babysitter Relationship Specialty Start Date End Date Kristi Warren ANP [address] [place] [address] PCP - General Family Medicine 03/24/20 [facility] 08/09/24 12/19/24 [facility] 12/09/24 documented as of this encounter
--- OUTSIDE RECORDS SUMMARY | 2025-06-03 16:17 | XMS_ITS | Clinical Summary ---
Author Organization [facility], Address [address] [place] [address] [place] [address] Phone Care Team Providers Care Tax Accountant Name Role Phone Unavailable Primary Care Provider Unavailabl e Allergies No [...] tablet 11 3 Active Vitamin D, Ergocalciferol, 53268 units capsule Use 500 mcg in the mouth or throat per week 4 capsule 13 4 Active furosemide (LASIX) 20 MG tablet Take 2 tablets (40 mg total) by mouth every morning 180 tablet 3 4 Active amLODIPine (NORVASC) 5 MG tablet Take 1 tablet (5 mg total) by mouth 1 (one) time each day 90 tablet 3 5 02/20/20 26 Active Active Problems Problem Noted Date Diagnosed [...] 09/06/2021 Hypercholesterolemia 09/24/2019 021 Hypertensive heart disease w [facility] congestive heart failure 09/24/2019 01/24/2022 Microalbuminuria 09/24/2019 09/06/2021 Hyperuricemia 01/24/2022 Hypervolemia 01/24/2022 Hyperparathyroidism 01/25/20 22 Immunizations Immunization Administration Dates Next Due Influenza (IM) Preservative [...] Exam 09/24/2019 Diabetes: Visual Foot Exam 09/24/2019 Diabetes: Hemoglobin A1C 04/08/2025 025, 04/30/2024, 01/16/2024, Additional history exists Influenza Vaccine (#1) 2025 4, 07/09/2020, 06/10/2020, Additional history exists Hepatitis B Vaccine Aged Out 08/16/2024 No longe r eligible based on patient's age to complete this topic Pneumococcal Vaccine: 50+ Years Completed 08/16/2024, 09/28/2018, 07/12/2017, Additional history exists Pneumococcal Vaccine: Peds (0 to 5 Years) and At-Risk Patients (6 to 49 Years) Discontinued 08/16/2024, 09/28/2018, 07/12/2017, Additional history exists Procedures Procedure Name Priority Date/Time Associated Diagnosis Comments HEMOGLOBIN A1C Routine 10/25/2022 1:48 PM EST Stage 3a chronic kidney disease (HCC) from Last 3 Months or Most Recently Relevant to Health Maintenance Results * (ABNORMAL) Hemoglobin A1c (10/25/2022 1:48 PM EST) Hemoglobin A1C 6.0(H) (4.0-5.6) % [facility] Comment: MONITORING: In known diabetic patients, hemoglobin A1c targets should be discussed with health care provider. DIAGNOSTIC USE: The [place] Diabetes Association (ADA) and the World Health [...] Supplement 1 Testing performed or reported by [facility], a Service of [facility], [address] [place] [address] Elvira Lopez MD, Verifier [facility]# [id number] Blood specimen (specimen) Venous blood / Unknown 10/25/2022 1:48 PM EST 10/25/2022 1:54 PM EST us [facility] BLOOD ORDERABLES Final Re sult [facility] from Last 3 Months or Most Recently Relevant to Health Maintenance Insurance [facility] [employer] Dual SNP ([id number]) [place] [id number] [place] [address] , [place] [address] [place] [address]
--- OUTSIDE RECORDS SUMMARY | 2025-06-03 16:17 | XMS_ITS | Encounter Summary ---
Author Organization [facility], Address [address] [place] [address] Phone Care Team Providers Care Raking Machine Operator Name Role Phone Unavailable Primary Care Provider Unavailabl e Encounter Details Date Type Department Care Team (Late st Contact Info) Description 07/30/2024 Documentation Only [facility], - Angel Caicedo [address] [place] [phone] Iona Salas [address] [place] [address] Social History Tobacco Use Types [...]
--- OUTSIDE RECORDS SUMMARY | 2025-06-03 16:17 | XMS_ITS | Continuity of Care Document ---
Author Name Suresh Manriquez Address [address] [place] [id number] Organization Unknown Address [address] [place] [address] Medications No known medications Problems No known problems
--- OUTSIDE RECORDS SUMMARY | 2025-06-03 16:17 | XMS_ITS | Encounter Summary ---
Author Organization [employer] Address [address] [facility] 7t [place] [address] Care Team Providers Care Gis Application Developer Name Role Phone Kristi Warren Primary Care Provider [phone] Reason for Visit * Reason Onset Date Comments Referral 03/29/2023 Encounter Details Date Type Department Care Team ([facility] st Contact Info) Description 03/29/2023 Telephone [facility] MEDICINE [address] [place] [address] Kristi Warren ANP [address] [place] [address] Referral Social History Tobacco Use Types Packs/Day [...] referral for Podiatry. Please contact pt at [phone] Mal[place]ian Speaker documented in this encounter Plan of Treatment Upcoming Encounters Date Type Department Care Team (Late st Contact Info) Description 06/12/2025 1:00 PM EDT Office Visit [facility] MEDICINE [address] [place] [address] Kristi Warren ANP [address] [place] [address] documented as of this encounter Visit Diagnoses Not on filedocumented in this encounter Care Teams Gis Application Developer Relationship Specialty Start Date End Date Kristi Warren ANP [address] [place] [address] PCP - General Family Medicine 03/24/20 [facility] 08/09/24 12/19/24 [facility] 12/09/24 documented as of this encounter
--- OUTSIDE RECORDS SUMMARY | 2025-06-03 16:17 | XMS_ITS | Encounter Summary ---
Author Organization [employer] Address [address] [facility] 7t [place] [address] Care Team Providers Care Operator Maintainer Name Role Phone Kristi Warren Primary Care Provider [phone] Reason for Visit * Reason Onset Date Comments Nurse Triage 04/06/2023 Encounter Details Date Type Department Care Team ([facility] st Contact Info) Description 04/06/2023 Telephone [facility] MEDICINE [address] [place] [address] Kristi Warren ANP [address] [place] [address] Nurse Triage Social History Tobacco Use Types [...] Miscellaneous Notes * Telephone Encounter - Alana Landrumz - 04/06/2023 2:10 PM EDT Symptoms: Loss of Appetite, Depression Outcome: Schedule an urgent appointment (within 4 hours) or talk to a nurse or provider soon Reason: Getting worse The caller accepted this outcome Patient speaks citizen of [place] documented in this encounter Plan of Treatment Upcoming Encounters Date Type Department Care Team (Late st Contact Info) Description 06/12/2025 1:00 PM EDT Office Visit [facility] MEDICINE [address] [place] [address] Kristi Warren ANP [address] [place] [address] documented as of this encounter Visit Diagnoses Not on filedocumented in this encounter Care Teams Operator Maintainer Relationship Specialty Start Date End Date Kristi Warren ANP [address] [place] [address] PCP - General Family Medicine 03/24/20 [facility] 08/09/24 12/19/24 [facility] 12/09/24 documented as of this encounter
--- OUTSIDE RECORDS SUMMARY | 2025-06-03 16:17 | XMS_ITS | Encounter Summary ---
Author Organization [employer] Address [address] [facility] 7t [place] [address] Care Team Providers Care Bartacker Name Role Phone Kristi Warren Primary Care Provider Reason for Visit * Reason Onset Date Comments Referral 11/17/2022 Encounter Details Date Type Department Care Team ([facility] st Contact Info) Description 11/17/2022 Telephone [facility] MEDICINE [address] [place] [address] Kristi Warren ANP [address] [place] [address] Referral Social History Tobacco Use Types Packs/Day [...] from pt requesting a referral for a diabetic educator to have toe nails cut Please contact pt at [phone] documented in this encounter Plan of Treatment Upcoming Encounters Date Type Department Care Team (Late st Contact Info) Description 06/12/2025 1:00 PM EDT Office Visit [facility] MEDICINE [address] [place] [address] Kristi Warren ANP [address] [place] [address] documented as of this encounter Visit Diagnoses Not on filedocumented in this encounter Care Teams Bartacker Relationship Specialty Start Date End Date Kristi Warren ANP [address] [place] [address] PCP - General Family Medicine 03/24/20 [facility] 08/09/24 12/19/24 [facility] 12/09/24 documented as of this encounter
--- OUTSIDE RECORDS SUMMARY | 2025-06-03 16:17 | XMS_ITS | Patient Health Record ---
Author Organization [facility] Address [address] [facility] [place] [address] Care Team Providers Care Fuels Engineer Name Role Phone Kristi Warren Primary Care Provider Fan Simons Unavailable [phone] Allergies No Known Allergies Reason For Referral [...] Problem Acquired hammer toe of right foot (18227688410801 05) Other hammer toe(s) (acquired), right foot (M20.41) Active confirmed Problem Type 2 diabetes mellitus with peripheral angiopathy (215734074) Type 2 diabetes mellitus with diabetic peripheral angiopathy without gangrene (E11.51) Active confirmed Problem Acquired hammer toe of left foot (13882966595054 03) Other hammer toe(s) (acquired), left foot (M20.42) Active confirmed Plan Of Treatment Pending Test Test Name Order Date [id number] NAIL, 6 OR MORE 09/14/2020 [id number] NAIL, 6 OR MORE 12/14/2020 [id number] NAIL, 6 OR MORE 02/22/2021 [id number] NAIL, 6 OR MORE 04/29/2021 [id number] NAIL, 6 OR MORE 08/11/2021 [id number] NAIL, 6 OR MORE 10/20/2021 [id number] NAIL, 6 OR MORE 12/30/2021 [id number] NAIL, 6 OR MORE 03/23/2022 [id number] NAIL, 6 OR MORE 06/06/2022 30771-ANYZ SKIN LESIONS, OVER 4 06/06/20 22 61133-GXAX SKIN LESIONS, OVER 4 12/31/19 22 14562-IYVQ SKIN LESIONS, OVER 4 03/23/20 22 71288-XQPA SKIN LESIONS, OVER 4 10/20/19 22 23847-VRPG SKIN LESIONS, OVER 4 08/11/20 21 40929-ILPC SKIN LESIONS, OVER 4 04/29/20 21 72529-GYED SKIN LESIONS, OVER 4 02/23/20 21 74875-DZRV SKIN LESIONS, OVER 4 12/15/19 21 12394-QEFR SKIN LESIONS, OVER 4 09/14/20 20 Insurance Providers Payer Name Payer Address Payer Phone Subscriber Number Group Number Insured Name Patient Relationship to Insured Coverage Start Date Coverage End Date [facility] [employer] Claims [address] [place] Rahman [id number] [phone] [id number] Albert Baeza Self - patient is the insured Medical (General) History Medical History History ICD Code Diabetic Surgical History Surgery Date(Month/Year) back surgery Hospitalization History Reason Date(Month/Year) [facility] swollen [facility]
--- OUTSIDE RECORDS SUMMARY | 2025-06-03 16:17 | XMS_ITS | Encounter Summary ---
Author Organization [facility], Address [address] [place] [address] Phone Care Team Providers Care Pressing Department Supervisor Name Role Phone Unavailable Primary Care Provider Unavailabl e Encounter Details Date Type Department Care Team (Late st Contact Info) Description 07/30/2024 Documentation Only [facility], - Angel Caicedo [address] [place] [id number] Iona Salas [address] [place] [address] Social History Tobacco Use Types [...]
--- OUTSIDE RECORDS SUMMARY | 2025-06-03 16:17 | XMS_ITS | Clinical Summary ---
Author Organization [employer] Address [address] [facility] [address] [place] [address] Care Team Providers Care Scale Operator Name Role Phone Kristi Warren BATSHEVA Primary Care Provider [phone] Allergies No known active allergies Medications * This document contains information received from the source organization and may not represent a complete record from that organization. Blood Pressure kitIndications:P rimary hypertension 1 kit in the morning. 1 kit 023 Active glucose blood (FREESTYLE LITE) test strip test blood sugars twice a day 100 each 11 023 Active clotrimazole (Lotrimin) 1 % creamIndications :Recurrent tinea pedis APPLY TOPICALLY TWICE DAILY 30 g 2 024 Active TRUEplus Lancets 33G miscIndications: Type 2 diabetes mellitus without complications (CMS/HCC) TEST BLOOD SUGAR 2-3 TIMES PER DAY 100 each 5 024 Active atorvastatin (Lipitor) 40 MG tablet Take 1 tablet (40 mg) by mouth Once per day. 90 tablet 3 024 2024 Active acetaminophen (Tylenol Extra Strength) 500 MG tablet Take 2 tablets (1,000 mg) by mouth every 8 (eight) hours if needed for mild pain or moderate pain. 180 tablet 3 Active Continuous Glucose Ict Security Specialist (FreeStyle Sherley 2 Broxton) deviceIndication s:Type 2 diabetes mellitus with stage 3 chronic kidney disease, with long-term current use of insulin, unspecified whether stage 3a or 3b CKD (CMS/HCC) USE DIRECTED SCAN EVERY 8 HOURS 1 each Active Blood Glucose Monitoring Suppl (FreeStyle [place] Lite) w/Device kit USE DIRECTED TO TEST BLOOD SUGAR THREE TIMES DAILY 1 kit 10/30/2 024 Active naloxone (Narcan) 4 mg/0.1 mL nasal sprayIndications :Misuse of medication,terminal carman (current) use of opiate analgesic Administer 1 spray (4 mg) into affected nostril(s) if needed for opioid reversal. May repeat every 2-3 minutes if needed, alternating nostrils, until medical assistance becomes available. 2 each 024 2024 Active Continuous Glucose Sensor (FreeStyle Sherley 2 Sensor) miscIndications: Type 2 diabetes mellitus with stage 3 chronic kidney disease, with long-term current use of insulin, unspecified whether stage 3a or 3b CKD ([facility]) USE DIRECTED TO TEST BLOOD SUGAR CHANGE EVERY 14 DAYS 2 each 3 025 Active empagliflozin (Jardiance) 25 MGIndications:Ty pe 2 diabetes mellitus with stage 3 chronic kidney disease, with long-term current use of insulin, unspecified whether stage 3a or 3b CKD ([facility]) TAKE 1 TABLET BY MOUTH EVERY MORNING 90 tablet 1 025 Active FREESTYLE LITE test stripIndications :Type 2 diabetes mellitus with unspecified complications ([facility]) test blood sugars twice a day 100 each 025 2025 Active Emollient (CeraVe Daily Moisturizing) lotionIndication s:Dry skin Apply 4 g topically 2 times daily. 355 mL 025 Active metoprolol succinate XL (Toprol XL) 25 MG 24 hr tabletIndication s:Essential hypertension Take 0.5 tablets (12.5 mg) by mouth Once per day. Do not crush or chew. 15 tablet 025 2025 Active cilostazol (Pletal) 100 MG tablet TAKE 1 TABLET BY MOUTH TWICE DAILY AT NOON AND BEDTIME 025 Active Skin Protectants, Misc. (Eucerin Original Healing) creamIndications :Dry skin Apply 4 g topically 2 times daily. To legs and arms 454 g 025 Active capsaicin (Capzasin-HP) 0.1 % creamIndications :Neck pain Apply 2g as needed up to twice daily for pain 42.5 g 025 Active Aspirin Low Dose 81 MG EC tabletIndication s:History of non-ST elevation myocardial infarction (NSTEMI) TAKE 1 TABLET BY MOUTH AT BEDTIME 90 tablet 1 025 Active traZODone (Desyrel) 100 MG tabletIndication s:Insomnia, unspecified type TAKE 1 AND 1/2 TABLETS BY MOUTH AT BEDTIME 45 tablet 025 Active Continuous Glucose Sensor (FreeStyle Sherley 2 Plus Sensor) miscIndications: Diabetic nephropathy associated with type 2 diabetes mellitus (CMS/HCC) 1 each every 15 days. Change sensor every 15 days 2 each 025 Active miconazole (Micatin) 2 % cream Apply between all toes twice daily 141 g 5 024 2024 Aspirin Low Dose 81 MG EC tabletIndication s:History of non-ST elevation myocardial infarction (NSTEMI) TAKE 1 TABLET BY MOUTH AT BEDTIME 90 tablet 1 025 2024 Discontinued lidocaine (Xylocaine) 5 % ointmentIndicati ons:Cervical stenosis of spine Apply topically if needed for mild pain. Up to 4x/d 240 g 1 025 2024 Discontinued(I neffective) ammonium lactate (Lac-Hydrin) 12 % lotion APPLY TOPICALLY DAILY IF NEEDED TO DRY SKIN 025 2024 Discontinued(T herapy completed) furosemide (Lasix) 40 MG tablet Take 40 mg by mouth in the morning. 025 2024 Discontinued(T herapy completed) traZODone (Desyrel) 100 MG tabletIndication s:Insomnia, unspecified type TAKE 1 AND 1/2 TABLETS BY MOUTH AT BEDTIME 45 tablet 025 2024 Discontinued Active Problems Problem Noted Date Diagnosed Date Abnormal weight loss 04/01/2025 Hypotension 04/01/2025 Overview (04/01/2025): continues not to drink enough fluids. Anorexia 04/01/2025 Moderate protein-calorie malnutrition 04/01/2025 Recurrent tinea pedis 04/01/2025 Frail elderly 04/01/2025 Moderate recurrent major depression 08/22/2024 Assessment & Plan (08/22/2024 2:04 PM EST): PROGRESS NOTE: ID: Albert is a 74 y.o. don't know-identified cis-male with MH services including OP Psychotherapy No previous hx [...] intervention , Patient to reach out to [facility] team as needed, Comply with medication , and Patient to engage in OP therapy Mild anxiety 08/22/2024 History of non-ST elevation myocardial infarctio n (NSTEMI) 08/06/2024 Overview (08/06/2024): (from coronary hypoperfusion during cardiac arrest after elective lumbar injection 09/28/18) Paroxysmal atrial fibrillation 08/06/2024 Assessment & Plan (04/15/2025 2:49 PM EDT): I recommended for patient to go to the hospital with ambulance, he refused and signed AMA Assessment & Plan (08/06/2024 3:33 PM EDT): - patient has Holter monitor in June 2024 which was ordered by his underlay stitcher. Results did not show atrial fibrillation. - the patient was seen by a underlay stitcher while int [facility] and telemetry tracing showed atrial fibrillation per underlay stitcher. - the patient was started on eliquis but it was not continued after he was discharged from the snf for unclear reasons. - due to increase risk of fall, will consult with underlay stitcher. The patient is taking aspirin and cilostazol for PAD. Will consult with underlay stitcher. Metabolic encephalopathy 08/06/2024 Assessment & Plan (08/06/2024 [...] associa reginaldo with type 2 diabetes mellitus 07/04/2017 Failed back surgical syndrome 07/04/2017 Hearing [...] to low BP. - will consult with underlay stitcher for optimal BP management plan. Mood disorder 07/04/2017 Onychomycosis 07/04/2017 Osteoarthritis of right knee 07/04/2017 Tobacco dependence syndrome 07/04/2017 Stage 3 chronic kidney disease 07/04/2017 Overview (05/25/2023): Update for Diagnosis Load Retinopathy 05/29/2012 Encounters Date Type Department Care Team Description 06/02/2025 Refill [facility] [address] [facility] [place] [address] Katiana Villarreal, RN Diabetic nephropathy associated with type 2 diabetes mellitus ([facility]) (Primary Dx) 05/27/2025 Orders Only GENERIC EXTERNAL DATA DEPARTMENT Provider, Generic External Data 05/26/2025 Telephone [facility] Kathy [facility] [place] [address] Kristi Warren ANP 05/23/2025 Orders Only [facility] [place] [address] Kristi Warren ANP 05/23/2025 Refill [facility] [place] [address] Name, MD Beny Insomnia, unspecified type 05/20/2025 Orders Only [facility] [address] [place] [address] Kristi Warren ANP Abnormal weight loss (Primary Dx) 05/20/2025 Telephone [facility] [address] [place] [address] ABD/PELVIS ORDER 05/19/2025 Refill [facility] [address] [place] [address] Kristi Warren ANP History of non-ST elevation myocardial infarction (NSTEMI) 05/12/2025 1:00 PM EDT Office Visit [facility] Kathy [facility] [place] [address] Kristi Warren ANP Neck pain (Primary Dx); Dry skin; Easy bruising; Fatigue, unspecified type; Anorexia; Moderate protein-calorie malnutrition (CMS/HCC) 05/12/2025 Travel 05/09/[address] [address] Kristi Warren ANP chart prep 05/09/[address] [address] Kristi Warren ANP Nurse Triage 04/29/[address] [address] Kristi Warren ANP Durable Medical Equipment 04/25/[address] [address] Kristi Warren ANP Insomnia, unspecified type 04/23/2025 [facility] [address] [place] [address] [address] ABD/PELVIS ORDER 04/22/[address] [address] Kristi Warren ANP ER Follow-up; fyi 04/19/2025 Travel 04/18/[address] [address] Norma Campos, PharmD 04/18/[address] [address] Kristi Warren ANP Nurse Triage 04/16/[address] [address] Norma Campos, PharmD 04/15/2025 1:20 PM EDT Office Visit [facility] [address] [place] [phone] Amy Fry MD Paroxysmal atrial fibrillation ([facility]) (Primary Dx) 04/15/2025 Orders Only GENERIC EXTERNAL DATA DEPARTMENT Provider, Generic External Data 04/15/[address] [address] Kristi Warren ANP Nurse Outreach; 911 dispatched 04/15/[address] [address] Kandace Harris, laminate floor installer 04/15/2025 Travel 04/12/2025 Results Follow-Up [address] [address] Kristi Warren ANP POCT Glucose, POCT HGB A1C, Sed Rate by Modified Westergren, Additional followed-up results: 4 04/02/[address] [address] Kristi Warren ANP Durable Medical Equipment 04/01/2025 11:15 AM EDT Office Visit [address] [address] Kristi Warren ANP Diabetic nephropathy associated with type 2 diabetes mellitus (CMS/HCC) (Primary Dx); Essential hypertension; At risk for polypharmacy; Hypotension, unspecified hypotension type; Abnormal weight loss; Diarrhea, unspecified type; Callus between toes; Recurrent tinea pedis; Moderate protein-calorie malnutrition (CMS/HCC); Anorexia; Frail elderly; Incontinence of feces, unspecified fecal incontinence type; Severe protein-calorie malnutrition (CMS/HCC) 04/01/[address] [address] Kristi Warren ANP Insomnia, unspecified type 04/01/2025 Travel 04/01/[address] [address] Kristi Warren ANP Nurse Triage 03/31/[address] [address] Kristi Warren ANP Referral 03/31/2025 Orders Only GENERIC EXTERNAL DATA DEPARTMENT Provider, Generic External Data 03/31/[address] [address] Kristi Warren ANP Durable Medical Equipment 03/13/2025 2:30 PM EDT Office Visit [address] [address] Kristi Warren ANP Cervical stenosis of spine (Primary Dx); Diabetic nephropathy associated with type 2 diabetes mellitus (CMS/HCC); Hypotension, unspecified hypotension type; Unintentional weight loss; Dry skin 03/13/2025 Travel 03/12/2025 Telephone [facility] [address] [place] [phone] Kristi Warren ANP chart prep from Last 3 Months Immunizations Immunization Administration Dates Next Due Hep A, Adult [...] Smoke Exposure: Never Smokeless Tobacco: Never Tobacco Cessation:Counseling Given: Not Answered Comments:Reports having an occasional [...] Sign Reading Time Taken Comments Blood Pressure 100/57 05/12/2025 12:56 PM EDT Pulse 51 05/12/2025 12:56 PM EDT Temperature 36.6 C (97.9 F) 04/15/2025 1:16 PM EDT Respiratory Rate 16 05/12/2025 12:56 PM EDT Oxygen Saturation 95% 04/15/2025 1:16 PM EDT Inhaled Oxygen Concentration - - Weight 64.9 kg (143 lb) 05/12/2025 12:56 PM EDT Height 167.6 cm (5' 6 ) 05/12/2025 12:56 PM EDT Body Mass Index 23.08 05/12/2025 12:56 PM EDT Plan of Treatment Upcoming Encounters Date Type Department Care Team (Late st Contact Info) Description 06/12/2025 1:00 PM EDT Office Visit [facility] [address] [place] [address] Kristi Warren ANP [address] [place], [place] [phone] Health Maintenance Due Date Last Done Comments CT Colonography 1950 FIT DNA/Cologuard 1950 FIT 1950 FOBT 1950 Sigmoidoscopy 1950 Eye Exam 01/06/1960 Colonoscopy 07/26/2020 07/26/2010 Colorectal Cancer Screening 07/26/2020 Hepatitis B Vaccines (2 of 3 - 19+ 3-dose series) 09/13/2024 08/16/2024 COVID-19 Vaccine ( season) 2025 08/06/2024, 07/11/2023, 07/14/2022, Additional history exists Influenza Vaccine (#1) 2025 , 07/12/2022, 07/23/2021, Additional history exists Diabetes: Hemoglobin A1C 06/13/2025 025, 01/07/2025, 08/06/2024, Additional history exists Depression Screening 01/07/2026 01/07/2025, 01/08/20 25 Alcohol/Substance Use Screening 03/13/2026 03/13/2025 SDOH Screening 03/13/2026 03/13/2025 Lipid Panel 03/31/2026 03/31/2025, 08/09, 08/18/2021 Diabetes: Foot Exam 04/01/2026 04/01/2025, 04/01/2025, 04/01/2025, Additional history exists Tobacco Screening 05/12/2026 05/12/2025 DTaP/Tdap/Td Vaccines (4 - Td or Tdap) 04/30/2034 04/30/2024, 07/22/2013, 04/23/2008, Additional history exists Zoster Vaccines Completed 04/14/2020, 11/10, 07/04/2017 RSV Patients and Patients Aged 60 years or older Completed 09/19/2023 Hepatitis A Vaccines Aged Out 08/06/2024 No long er eligible based on patient's age to complete this topic Pneumococcal Vaccine: 50+ Years Completed 08/16/2024, 09/28/2018, 07/12/2017, Additional history exists Hepatitis C Screening Completed 03/31/2025 HIB Vaccines Aged Out No longer eligi ble based on patient's age to complete this topic HPV Vaccines Aged Out No longer eligi ble based on patient's age to complete this topic IPV Vaccines Aged Out No longer eligi ble based on patient's age to complete this topic Meningococcal B Vaccine Aged Out No l onger eligible based on patient's age to complete [...] 3:05 PM EDT) No Mike Harris PharmD Procedures Procedure Name Priority Date/Time Associated Diagnosis Comments TESTOSTERONE, TOTAL, MALES (ADULT), [place] Routine 05/27/2025 9:04 AM EDT PSA, TOTAL Routine 05/27/2025 9:04 AM EDT CBC Routine 05/27/2025 9:04 AM EDT HIGH SENSITIVITY TROPONIN I Routine 04/15/2025 4:07 PM EDT MAGNESIUM Routine 04/15/2025 4:06 PM EDT COMPREHENSIVE METABOLIC PANEL Routine 04/15/2025 4:06 PM EDT CBC WITH AUTO DIFFERENTIAL Routine 04/15/2025 4:06 PM EDT SARS COV2/INFLUENZA A/B AND RSV RNA QL NAAT Routine 04/15/2025 4:06 PM EDT ECG 12-LEAD Routine 04/15/2025 2:50 PM EDT Paroxysmal atrial fibrillation (CMS/HCC) TESTOSTERONE, TOTAL, MALES (ADULT), IA Routine 03/31/2025 11:41 AM EDT BASIC METABOLIC PANEL Routine 03/31/2025 11:41 AM EDT Diabetic nephropathy associated with type 2 diabetes mellitus (CMS/HCC) PSA, TOTAL Routine 03/31/2025 11:41 AM EDT CBC Routine 03/31/2025 11:41 AM EDT HIV 1/2 ANTIGEN/ANTIBODY, FOURTH GENERATION W/RFL Routine 03/31/2025 11:41 AM EDT Unintentional weight loss HEPATITIS C AB W/REFL TO HCV RNA, QN, PCR Routine 03/31/2025 11:41 AM EDT Unintentional weight loss HEPATIC FUNCTION PANEL Routine 03/31/2025 11:41 AM EDT Unintentional weight loss C-REACTIVE PROTEIN Routine 03/31/2025 11 :41 AM EDT Unintentional weight loss SED RATE BY MODIFIED WESTERGREN Routine 03/31/2025 11:41 AM EDT Unintentional weight loss TSH W/REFLEX TO FT4 Routine 03/31/2025 1 1:41 AM EDT Abnormal weight loss CBC WITH AUTO DIFFERENTIAL Routine 03/31/2025 11:41 AM EDT Abnormal weight loss LIPID PANEL, STANDARD Routine 03/31/2025 11:41 AM EDT Diabetic nephropathy associated with type 2 diabetes mellitus ([facility]/HCC) ALBUMIN, RANDOM URINE W/CREATININE Routine 03/31/2025 11:34 AM EDT POCT GLYCATED HEMOGLOBIN, TOTAL Routine 03/13/2025 3:05 PM EDT Diabetic nephropathy associated with type 2 diabetes mellitus ([facility]/HCC) POCT GLUCOSE Routine 03/13/2025 3:05 PM EDT Diabetic nephropathy associated with type 2 diabetes mellitus ([facility]/HCC) HM COLONOSCOPY Routine 07/26/2010 from Last 3 Months or Most Recently Relevant to Health Maintenance Results * (ABNORMAL) CBC (05/27/2025 9:04 AM EDT) Only the most recent of2 resultswithin the time period is included. White Blood Count 7.3 4.8 - 10.8 X10*3/uL [facility] Red Blood Count 4.67 4.60 - 5.80 X10*6/uL [facility] Hemoglobin 16.4 14.0 - 18.0 g/dl [facility] Hematocrit 47.3 42.0 - 52.0 % [facility] Mean Corpuscular Volume 101.3(H) 80.0 - 98.0 fL [facility] Mean Corpuscular Hemoglobin 35.1(H) 27.0 - 33.0 pg [facility] Mean Corpuscular HGB Conc 34.7 31.0 - 36.0 g/dl [facility] Red Cell Distribution Width 14.4 11.0 - 16.0 % [facility] Platelet Count 187 160 - 400 X10*3/uL [facility] Mean Platelet Volume 10.0 9.4 - 12.4 fL [facility] NRBC Pct Auto 0.0 0.0 - 0.2 /100WBC [facility] NRBC Abs Auto 0.000 0.0 - 0.012 X10*3/uL [facility] 05/27/2025 9:04 AM EDT 05/27/2025 9:04 AM EDT us Generic External Data Provider LAB BLOOD ORDERAB LES Final Result Performing Organization Address [facility] Co de Phone Number [facility] [address] [place] [address] [phone] * Testosterone, Total, males (Adult), [place] (05/27/2025 9:04 AM EDT) Only the most recent of2 resultswithin the time period is included. Testosterone, Total 300 250 - 1100 ng/dL [facility] Comment:Men with clinically significant hypogonadalsymptoms and testosterone values repeatedly inthe range of the 200-300 ng/dL or less, maybenefit from testosterone treatment afteradequate risk and benefits counseling.For additional information, please refer [email or web address]/faq/[email or web address](This link is being provided for informational/educational purposes only.)This test was developed and its analytical performancecharacteristics have been determined by [employer] [place], [place]. It hasnot been cleared or approved by the U.S. Food and DrugAdministration. This assay has been validated pursuantto the CLIA regulations and is used for clinicalpurposes.THIS TEST WAS PERFORMED AT:[employer]/[id number] [place] [id number] MCCURDY MD,PHD 05/27/2025 9:04 AM EDT 05/27/2025 9:04 AM EDT us Generic External Data Provider LAB BLOOD ORDERAB LES Final Result Performing Organization Address [facility]/ZIP Co de Phone Number [facility] [address] [place] [address] [phone] * PSA,Total (05/27/2025 9:04 AM EDT) Only the most recent of2 resultswithin the time period is included. Prostate Specific Antigen 0.38 <0.05 - 4.0 ng/mL [facility] Comment:PSA methodology: Klaus [place] i ChemiluminescentMicroparticle Immunoassay (CMIA) 05/27/2025 9:04 AM EDT 05/27/2025 9:04 AM EDT Generic External Data Provider LAB BLOOD ORDERAB LES Final Result Performing Organization Address [facility] de Phone Number [facility] [address] [place] [phone] * (ABNORMAL) High Sensitivity Troponin I (04/15/2025 4:07 PM EDT) Pathologist [facility] TROPONIN I HIGH SENSITIVITY 35.7(H) <3.5 - 35.0 ng/L [facility] Comment:The [place] high sens itivity Troponin-I results should beused in conjunction with other diagnostic information suchas ECG, clinical observations and information, and patientsymptoms to aid in the diagnosis of CA. 04/15/2025 4:07 PM EDT 04/15/2025 4:10 PM EDT Generic External Data Provider LAB BLOOD ORDERAB LES Final Result Performing Organization Address [facility] Co de Phone Number [facility] [address] [place] [phone] * SARS-CoV-2 RNA, Influenza A/B, and RSV RNA, Ql NAAT (04/15/2025 4:06 PM EDT) Pathologist [facility] Influenza A PCR NEGATIVE Negative [facility] Influenza B PCR NEGATIVE Negative [facility] Resp Syncy Virus RNA Qual PCR NEGATIVE Negative [facility] SARS COV2 PCR NEGATIVE Negative [facility] Comment:All test results mus t be correlated with clinical findings.Negative results do not preclude SARS-CoV2, influenza Avirus, influenza B virus and/or RSV infectionand should not be used as the sole basis for treatment orother patient management decisions. Negative results must becombined with clinical observations, patient history, andepidemiological information.This test has not been evaluated for monitoring treatment ofinfection.This test has been authorized by the FDA under an EmergencyUse Authorization (EUA) for use by authorized laboratories.Testing performed on the [employer] GeneXpert utilizingreal-time RT-PCR.All SARS CoV2 and positive influenza A/B results arereported to [facility]. 04/15/2025 4:06 PM EDT 04/15/2025 4:10 PM EDT us Generic External Data Provider LAB MICROBIOLOGY - GENERAL ORDERABLES Final Result [facility] [address] [place] [phone] * (ABNORMAL) CBC auto differential (04/15/2025 4:06 PM EDT) Only the most recent of2 resultswithin the time period is included. White Blood Count 8.2 4.8 - 10.8 X10*3/uL [facility] Red Blood Count 4.58(L) 4.60 - 5.80 X10*6/uL [facility] Hemoglobin 15.6 14.0 - 18.0 g/dl [facility] Hematocrit 44.5 42.0 - 52.0 % [facility] Mean Corpuscular Volume 97.2 80.0 - 98.0 fL [facility] Mean Corpuscular Hemoglobin 34.1(H) 27.0 - 33.0 pg [facility] Mean Corpuscular HGB Conc 35.1 31.0 - 36.0 g/dl [facility] Red Cell Distribution Width 14.1 11.0 - 16.0 % [facility] Platelet Count 156(L) 160 - 400 X10*3/uL [facility] Mean Platelet Volume 9.6 9.4 - 12.4 fL [facility] Neutrophils Percent Auto 56.6 45 - 73 % [facility] Imm Gran Pct Auto 0.4 0.0 - 0.4 % [facility] Lymphocytes Percent Auto 31.7 20 - 40 % [facility] Monocytes Percent Auto 9.9 2 - 11 % [facility] Eosinophils Percent Auto 0.9 0 - 4 % [facility] Basophils Percent Auto 0.5 0 - 2 % [facility] NRBC Pct Auto 0.2 0.0 - 0.2 /100WBC [facility] Neutrophils Absolute Auto 4.6 2.0 - 8.3 x10*3/uL [facility] Imm Gran Abs Auto 0.03 0.00 - 0.03 X10*3/uL [facility] Lymphocytes Absolute Auto 2.6 1.2 - 4.9 X10*3/uL [facility] Monocytes Absolute Auto 0.8 0.1 - 1.2 X10*3/uL [facility] Eosinophils Absolute Auto 0.1 0.0 - 0.4 X10*3/uL [facility] Basophils Absolute Auto 0.0 0.0 - 0.2 X10*3/uL [facility] NRBC Abs Auto 0.020(H) 0.0 - 0.012 X10*3/uL [facility] 04/15/2025 4:06 PM EDT 04/15/2025 4:10 PM EDT us Generic External Data Provider LAB BLOOD ORDERAB LES Final Result Performing Organization Address City/State/[facility] Co de Phone Number [facility] [address] [place] [phone] * (ABNORMAL) Magnesium (04/15/2025 4:06 PM EDT) Magnesium 1.4(LL) 1.6 - 2.6 mg/dL [facility] Comment:Critical value for t est(s):MAGS Results called to and readback by:DR BLACK Person calling:MAGGIEF Date:[id number]:[id number] 04/15/2025 4:06 PM EDT 04/15/2025 4:10 PM EDT us Generic External Data Provider LAB BLOOD ORDERAB LES Final Result [facility] [address] [place] [phone] * (ABNORMAL) Comprehensive Metabolic Panel (04/15/2025 4:06 PM EDT) Sodium 140 135 - 145 mmol/L [facility] Potassium 3.4 3.3 - 5.1 mmol/L [facility] Chloride 98 96 - 108 mmol/L [facility] Carbon Dioxide 33(H) 22 - 29 mmol/L [facility] Anion Gap 12 12 - 20 [facility] Urea Nitrogen (BUN) 11 9 - 16 mg/dL [facility] Creatinine, Serum 1.16 0.5 - 1.4 mg/dL [facility] Creatinine Clr Calc Pharmacy 49.6 [facility] Comment:eGFR (calculated fro m the MDRD study equation) and eCrCl(calculated from the Cockcroft-Gault equation) are based ondifferent parameters and may not yield comparable results.If eCrCl result is absurd, please check patient'sheight/weight. Estimated Glomerular Filt Rate >60 [facility] Comment:Chronic Kidney Disea se: Estimated GFR < 60 mL/min/[id number] Kidney Disease: Estimated GFR < 15 mL/min/1.73m2 Glucose 119(H) 60 - 115 mg/dL [facility] Calcium 8.5 8.4 - 10.2 mg/dL [facility] Bilirubin, Total 1.5(H) 0.0 - 1.0 mg/dL [facility] Aspartate Amino Transferase 60(H) 5 - 37 U/L [facility] Alanine Aminotransferase 71(H) 0 - 40 U/L [facility] Total Protein 5.6(L) 6.5 - 8.0 g/dL [facility] Albumin Level 3.6 3.5 - 5.0 g/dL [facility] Alkaline Phosphatase 89 39 - 117 U/L [facility] 04/15/2025 4:06 PM EDT 04/15/2025 4:10 PM EDT us Generic External Data Provider LAB BLOOD ORDERAB LES Final Result Performing Organization Address [facility]/ZIP Co de Phone Number [facility] [address] [place] [phone] * ECG 12 lead (04/15/2025 2:50 PM EDT) Narrative Amy Fry MD - 04/15/2025 2:50 PM EDT A fib with RVR HR 128 us Amy Estrada MD ECG ORDERABLES Final Result * TSH W/Reflex to FT4 (03/31/2025 11:41 AM EDT) TSH reflex Free T4 2.87 0.32 - 4.0 uIU/mL [facility] Blood Venous blood specimen / Unknown 03/31/2025 11:41 AM EDT 03/31/2025 11:41 AM EDT Kristi HERMAN LAB BLOOD ORDERABLES Final Resul t Performing Organization Address [facility]/ZIP Co de Phone Number [facility] [address] [place] [phone] * Hepatitis C Antibody with Reflex to HCV, RNA, Quantitative, Real-Time PCR (03/31/2025 11:41 AM EDT) Hepatitis C Antibody Nonreactive Nonreactive [facility] Comment:Antibodies to HCV no t detected; does not exclude early acuteHCV infection. Blood Venous blood specimen / Unknown 03/31/2025 11:41 AM EDT 03/31/2025 11:41 AM EDT Kristi Warren ANP LAB BLOOD ORDERABLES Final Resul t Performing Organization Address [facility] Co de Phone Number [facility] [address] [place] [phone] * HIV-1/2 Antigen and Antibodies, Fourth Generation, with Reflexes (03/31/2025 11:41 AM EDT) HIV AB/AG Nonreactive Nonreactive [facility] Comment:HIV-1 p24 Ag and/or HIV-1/HIV-2 Ab not detected.A test result that is nonreactive does not exclude thepossibility of exposure to or infection with HIV-1 and/orHIV-2. Nonreactive results in this assay for individualswith prior exposure to HIV-1 and/or HIV-2 may be due toantigen and antibody levels that are below the limit ofdetection of this assay.The [employer] HIV Ag/Ab Combo assay result andsupplemental assay results should be interpreted inconjunction with the patient's clinical presentation,history and other laboratory results. If the results areinconsistent with clinical evidence, additional testing issuggested to confirm the result. Blood Venous blood specimen / Unknown 03/31/2025 11:41 AM EDT 03/31/2025 11:41 AM EDT Kristi Warren [facility] LAB BLOOD ORDERABLES Final Resul t Performing Organization Address [facility] Co de Phone Number [facility] [address] [place] [phone] * Sed Rate by Modified Louren (03/31/2025 11:41 AM EDT) Erythrocyte Sedimentation Rate 2 0 - 15 MM/HR [facility] Comment:Patients with polycy themia and many hemoglobin abnormalitiesmay have depressed sed rates whereas patients with anemiamay have elevated sed rates. Blood Venous blood specimen / Unknown 03/31/2025 11:41 AM EDT 03/31/2025 11:41 AM EDT Kristi Warren [facility] LAB BLOOD ORDERABLES Final Resul t Performing Organization Address [facility]/ZIP Co de Phone Number [facility] [address] [place] [phone] * C-reactive Protein (03/31/2025 11:41 AM EDT) C Reactive Protein <0.04 < or = 0.50 mg/dL [facility] Blood Venous blood specimen / Unknown 03/31/2025 11:41 AM EDT 03/31/2025 11:41 AM EDT Kristi Warren [facility] LAB BLOOD ORDERABLES Final Resul t Performing Organization Address [facility] Co de Phone Number [facility] [address] [place] [phone] * (ABNORMAL) Hepatic Function Panel (03/31/2025 11:41 AM EDT) Bilirubin, Total 1.6(H) 0.0 - 1.0 mg/dL [facility] Bilirubin, Direct 0.5 0.0 - 0.5 mg/dL [facility] Aspartate Amino Transferase 46(H) 5 - 37 U/L [facility] Alanine Aminotransferase 41(H) 0 - 40 U/L [facility] Total Protein 5.8(L) 6.5 - 8.0 g/dL [facility] Albumin Level 3.6 3.5 - 5.0 g/dL [facility] Alkaline Phosphatase 83 39 - 117 U/L [facility] Blood Venous blood specimen / Unknown 03/31/2025 11:41 AM EDT 03/31/2025 11:41 AM EDT Kristi Warren [facility] LAB BLOOD ORDERABLES Final Resul t Performing Organization Address [facility]/ZIP Co de Phone Number [facility] [address] [place] [phone] * Lipid Panel, Standard (03/31/2025 11:41 AM EDT) Triglycerides 64 <150 mg/dL [facility] Comment:Desirable Triglyceri de: less than 150 mg/dLBorderline High Triglyceride 150-199 mg/dLHigh Triglyceride: 200-499 mg/dLVery High Triglyceride: greater than or equal to 5OO mg/dL Cholesterol 86 <200 mg/dL [facility] Comment:Desirable Cholestero l: less than 200 mg/dLBorderline High Cholesterol: 200-239 mg/dLHigh Cholesterol: greater than 239 mg/dL LDL Cholesterol Calculated 30 <100 mg/dL [facility] Comment:Desirable LDL: less than 100 mg/dLNear Optimal/Above Optimal LDL: 110- 129 mg/dLBorderline High LDL: 130-159 mg/dLHigh LDL: 160-189 mg/dLVery High LDL: greater than or equal to 190 mg/dL HDL Cholesterol 44 >40 mg/dL [facility] Comment:Desirable HDL: great er than 40 mg/dL Note: This HDL assay may give artificially low results in patients with liver disease. Blood Venous blood specimen / Unknown 03/31/2025 11:41 AM EDT 03/31/2025 11:41 AM EDT Kristi [facility] LAB BLOOD ORDERABLES Final Resul t [facility] [address] [place] [phone] * (ABNORMAL) Basic Metabolic Panel (03/31/2025 11:41 AM EDT) Sodium 140 135 - 145 mmol/L [facility] Potassium 3.7 3.3 - 5.1 mmol/L [facility] Chloride 99 96 - 108 mmol/L [facility] Carbon Dioxide 30(H) 22 - 29 mmol/L [facility] Anion Gap 15 12 - 20 [facility] Urea Nitrogen (BUN) 9 9 - 16 mg/dL [facility] Creatinine, Serum 0.97 0.5 - 1.4 mg/dL [facility] Creatinine Clr Calc Pharmacy TNP [facility] Comment:Unable to calculate eCrCL; all parameters not provided. Estimated Glomerular Filt Rate >60 [facility] Comment:Chronic Kidney Disea se: Estimated GFR < 60 mL/min/[id number] Kidney Disease: Estimated GFR < 15 mL/min/1.73m2 Glucose 206(H) 60 - 115 mg/dL [facility] Calcium 8.7 8.4 - 10.2 mg/dL [facility] Blood Venous blood specimen / Unknown 03/31/2025 11:41 AM EDT 03/31/2025 11:41 AM EDT us Kristi Warren ANP LAB BLOOD ORDERABLES Final Resul t Performing Organization Address [facility] de Phone Number [facility] [address] [place] [phone] * Albumin, Random Urine W/Creatinine (03/31/2025 11:34 AM EDT) Creatinine, Urine 85.49 mg/dL [facility] Microalbumin Urine 17.0 mg/L [facility] Microalbum Creatinine Ratio Ur 19.8 <30 ug/mg cr [facility] Comment:Albumin/Creatinine R atio Reference Ranges: Normal: < 30 ug/mg creatinine Microalbuminuria: 30 - 300 ug/mg creatinineClinical Albuminuria: > 300 ug/mg creatinine 03/31/2025 11:3 4 AM EDT 03/31/2025 11:55 AM EDT us Kristi Warren ANP LAB URINE ORDERABLES Final Resul t Performing Organization Address [facility] Co de Phone Number [facility] [address] [place] [phone] * (ABNORMAL) POCT HGB A1C (03/13/2025 3:05 PM EDT) Hemoglobin A1C 6.5(A) 4.0 - 6.0 % QC Media Lot # [id number] Lot# Expiration Date Blood 03/13/2025 3:05 PM EDT Kristi Warren ANP POINT OF CARE TEST ENTER/EDIT OR DERABLES Final Result * POCT Glucose (03/13/2025 3:05 PM EDT) Glucose Blood, POC 178 60 - 200 mg/dL [employer] Lot # [id number] Lot# Expiration Date ,025 Blood Capillary blood specimen / Unknown 03/13/2025 3:05 PM EDT Kristi Warren ANP POINT OF CARE TEST ENTER/EDIT OR DERABLES Final Result * Colonoscopy (07/26/2010) Colonoscopy Normal Normal Historical Provider HEALTH MAINTENANCE Final Result from Last 3 Months or Most Recently Relevant to Health Maintenance [facility]O D-SNP) Advance Directives Documents on File Type Date Recorded Patient Django Developer Expl anation Advance Directives and Living Will 12/27/2024 Health Care Proxy 12/26/24 Care Teams Scale Operator Relationship Specialty Start Date End Date Kristi Warren ANP [address] [place] [address] PCP - General Family Medicine 03/24/20 [facility] Care 12/09/24
--- OUTSIDE RECORDS SUMMARY | 2025-06-03 16:18 | XMS_ITS | Continuity of Care Document ---
Author Name Suresh Manriquez Address [address] [place] [phone] Organization Unknown Address [address] [place] [address] Medications No known medications Problems No known problems
--- OUTSIDE RECORDS SUMMARY | 2025-06-03 16:18 | XMS_ITS | Encounter Summary ---
Author Organization [facility] Address [address] [place] [address] Encounters * CPT with Medical instED at [id number] on 2025-05-08 { reasonForRequest : BP check/neck pain , patientReports : Active Chest pain, radiates to neck jaw and or arm; Palpitations, feeling dizzy; Chest pain, increased fatigue; Weakness/tachycardia , denies :[ History of Heart Attack, in the setting of active chest pain , Diaphoretic/Sweating , Describes as crushing ,"Sudden onset of nausea/Vomiting and shortness of breath. , Shortness of Breath , Unable to speak in full sentences without distress , CHF history, increased swelling and edema ], chiefComplaints : Low Blood Pressure, Dizziness , pmh": Hypertension, HIV/AIDS , allergies : No Known Drug Allergies ,"otherAllergies : , painAssessment : , visitOutcome&quot ;: , additionalComments : 75 y.o male complains of Low Blood Pressure, Diz ziness\nPatients MANUFACTURING ASSEMBLER making referral\nSHe states patient is \ forbidding her and arguing with her about calling 911\ \nshe took his blood pressure just before calling and it was 56/42 P 155and took it again and it was 56/51 p 93 unclear if correct based on symptoms.\nse states patient iscomplaining of tiredness dizziness, chest pain and neck pain that radiates to the back of the neck. \nTriage was limited due to language barrier. \nNurse strongly recommended calling 911 and they refused. reviewed red flags. \nI provided information on the mobile health provider response time and advised the patient and/or caregiver to monitor reported signs and symptoms. I discussed the warning signs of when to seek emergency care. } Dispatched to the above address for 75 y/m with a cc of chest pain. Proper ppe was worn throughout the call. Upon arrival: Pt AOx4 in a supine position in the living room recliner. Pt visual merchandise manager greeted [facility] and gave a verbal report. MANUFACTURING ASSEMBLER stated that for the past 2-3 months pt has been having neck pain, has been prescribed Baclofen by his PCP (taking for the past month). MANUFACTURING ASSEMBLER stated that she has noticed that for the past 4-5 days pt has been having increased weakness/new onset of cough (coughing up white sputum)/hypotension, and this morning woke up with dizziness. MANUFACTURING ASSEMBLER stated that she keeps a log of pt BPdaily and this morning pt BP was 58/42, pt was feeling dizzy, so she called insted (since pt did not want her to call 911). Pt AOx4 greeted [facility] and gave the same verbal report. Pt stated that initially he was a little dizzy, but as of right now the only cc he has is the same baseline neck pain. Pt stated that he is not going to go to the ER, but agreed to an assessment. Pt noted that he has been coughing up white phlegm, and the cough get worse when he is in a supine position. Pt denied to having CHF/asthma/copd/pneumonia AOx4 - Airway: Patent - Breathing: equal chest rise and fall - LS: clear in the apices, diminished in the Right base. [facility] noted that pt had minor rhonchi LS when in a supine position, which cleared when he switched into a fowlers position. - Skin: pink, warm, dry - Pupils: PERRL - CMSx4 - Lower extremity: no edema noted. Head to toe body assessment: (-) DCAPBTLS. Pt denied to headache/sob/chest pain/abd pain/dizziness (currently)/nausea/vomiting/blood in urine/constipation/diarrhea/difficulty urinating/painful urination/flu like symptoms/fever/ falls. (-) COVID/FLU A/FLU B HEENT. skin in tact with no deformity, discoloration, or inflammation. Pupils were equal and reactive to light bilaterally. Eyes tracking normally to six cardinal points of gaze. Nose and mouth were unobstructed. Trachea midline, jugular veins were nondistended in seated position. Face symmetrical with equal movement and sensation. Patient denied changes to vision or hearing and denied double vision. Tongue and uvula midline with palate raises symmetrically. No arm drift present, finger - nose test normal, no neglect noted. [facility]: ordered to do 12 lead (sinus rhythm, non diagnostic for STEMI), Successfully done. [facility] then gave orders for BMP (successfully done). [facility] gave red flags to the pt/pt education. [facility] left note for the PCP. MIH clear. All times approximate. IV_(FLUIDS_AND/OR_MEDICATION), POC_BLOODWORK, ORTHOSTATIC_VITAL_SIGNS, PO_MEDICATION, IV_MEDICATION Written by Medical instED on 2025-05-08
--- OUTSIDE RECORDS SUMMARY | 2025-06-03 16:18 | XMS_ITS | Encounter Summary ---
Author Organization [facility] Address [address] [place] [address] Encounters * CPT with Suresh Manriquez at [email or web address] on 2025-04-28 { reasonForRequest : PRESENTATION MANAGER reporting low blood pressure \n\n1st readin/50. 146\n2nd readin/56, 144 , patientReports : , denies :[ History of Heart Attack, in the setting of active chest pain , Active Chest pain, radiates to ne ck jaw and or arm , Diaphoretic/Sweating , Describes as crushing ,"Sudden onset of nausea/Vomiting and shortness of breath. , Shortness of Breath ,"Unable to speak in full sentences without distress , Palpitations, feeling dizzy , Chest pain, increased fatigue , CHF history, increased swelling and edema ,&qu ot;Weakness/tachycardia ], chiefComplaints : Low Blood Pressure , pmh& quot;: Hypertension, HIV/AIDS , allergies : No Known Drug Allergies ,& quot;otherAllergies : , painAssessment : , visitOutcome&qu ot;: , additionalComments : 75 y.o male complains of Low Blood Pressure\trim machine adjuster atients PRESENTATION MANAGER making referral\nShe states he has been seen by cardiology for a low heart rate and wasrecently taken off of two meds (she does not know which ones) \nShes concerned about the blood pressure readings and would like him checked\nPatient taking blood pressure this morning 83/56 pulse reading 144\npatient is asymptomatic He denies any chest pain, lightheadedness or dizziness and is eating breakfast at the time being. \ndenies any nausea, vomiting or abdominal pain. \nShe has been encouraging fluids. \n\n\nI provided information on the mobile health provider response time and advisedthe patient and/or caregiver to monitor reported signs and symptoms. I discussed the warning signs of when to seek emergency care. } Encountered patient seated upright and conscious. Patient reports his PRESENTATION MANAGER arrange the appointment due to low blood [...] equal bilaterally. Abdomen is soft, nontender and non-distended.Extremities are free of trauma and edema. [facility] contacted: reports no intervention is needed as patient???s blood pressure is within therapeutic levels when referring back to patient???s previous charts. Patient???s home blood pressure machinewas used in order to compare with [employer] monitor and it was found to register 10 points lower systolic. [facility] reports they will input a note to [...] reports he is comfortable remaining home today. IV_(FLUIDS_AND/OR_MEDICATION), POC_BLOODWORK, ORTHOSTATIC_VITAL_SIGNS, IV_MEDICATION Written by Suresh Manriquez on 2025-04-28
--- OUTSIDE RECORDS SUMMARY | 2025-06-03 16:18 | XMS_ITS | Encounter Summary ---
Author Organization [facility], Address [address] [place] [address] Phone Care Team Providers Care High Lift Driver Name Role Phone Unavailable Primary Care Provider Unavailabl e Encounter Details Date Type Department Care Team (Late st Contact Info) Description 10/19/2022 Documentation Only [facility], [address] [place] [address] Jt Ochoa PA [address] [place] [address] Social History Tobacco Use Types [...]
--- OUTSIDE RECORDS SUMMARY | 2025-06-03 16:18 | XMS_ITS | Encounter Summary ---
Author Organization [facility], Address [address] [place] [address] Phone Care Team Providers Care Bell Hole Digger Name Role Phone Unavailable Primary Care Provider Unavailabl e Encounter Details Date Type Department Care Team (Late st Contact Info) Description 10/07/2022 Orders Only [facility], [address] [place] [place] [address] Jt Ochoa PA [address] [place] [address] Stage 3a chronic kidney disease [...] (Fe, TIBC, TSAT) (10/25/2022 1:48 PM EST) Iron 70 (45-160) MCG/DL [facility] UIBC 153 (110-370) MCG/DL [facility] TIBC 223 (155-530) MCG/DL [facility] Iron Saturation (TSat) 31 (20-55) % [facility] Comment: Testing performed or reported by [facility], a Service of [facility], [address] [place] [address] Elvira Lopez MD, Medical Assistant Supervisor [facility]# [id number] Blood specimen (specimen) Venous blood / Unknown 10/25/2022 1:48 PM EST 10/25/2022 1:54 PM EST Jt [facility] BLOOD ORDERABLES Final Re sult [facility] * (ABNORMAL) Hemoglobin A1c (10/25/2022 1:48 PM EST) Hemoglobin A1C 6.0(H) (4.0-5.6) % [facility] Comment: MONITORING: In known diabetic patients, hemoglobin A1c targets should be discussed with health care provider. DIAGNOSTIC USE: The [place] Diabetes Association (ADA) and the World Health [...] Supplement 1 Testing performed or reported by [facility], a Service of [facility], [address] [place] [address] Elvira Lopez MD, Medical Assistant Supervisor CLIA# [id number] Blood specimen (specimen) Venous blood / Unknown 10/25/2022 1:48 PM EST 10/25/2022 1:54 PM EST Jt [facility] BLOOD ORDERABLES Final Re sult Performing Organization Address [facility] de Phone Number [facility] * (ABNORMAL) PTH, intact (10/25/2022 1:48 PM EST) PTH, Intact 105(H) (15-65) PG/ML [facility] Comment: Testing performed or reported by [facility], a Service of [facility], [address] [place] [address] Elvira Lopez MD, Medical Assistant Supervisor CLIA# [id number] Blood specimen (specimen) Venous blood / Unknown 10/25/2022 1:48 PM EST 10/25/2022 1:54 PM EST Jt [facility] BLOOD ORDERABLES Final Re sult Performing Organization Address [facility] Co de Phone Number [facility] * Urine Protein / creatinine ratio (10/25/2022 1:48 PM EST) [facility] Protein/Creatin e Ratio 0.14 (0-0.2) [facility] Protein, Urine 13 MG/DL [facility] Creatinine, Urine 96.2 MG/DL [facility] Comment: Testing performed or reported by [facility], a Service of [facility], [address] [place] [address] Elvira Lopez MD, Medical Assistant Supervisor [facility]# [id number] Urine specimen (specimen) Urine specimen obtained by clean catch procedure / Unknown 10/25/2022 1:48 PM EST 10/25/2022 1:54 PM EST Jt [facility] URINE ORDERABLES Final Re sult [facility] * (ABNORMAL) Urinalysis, Complete w/reflex to Culture (10/25/2022 1:48 PM EST) [facility] Appearance LIGHT YELLOW [facility] Comment:CLEAR Specific [place] 1.014 (1.002-1. 030) [facility] pH Urine 6.0 (5.0-8.0) [facility] Albumin, Urine TRACE(A) (NEG) [facility] Glucose, Ur NEGATIVE (NEG) [facility] Ketones, Urine NEGATIVE (NEG) [facility] Bilirubin Urine NEGATIVE (NEG) [facility] Hemoglobin Presence in Urine NEGATIVE (NEG) [facility] Nitrite, Urine NEGATIVE (NEG) [facility] Leukocyte Esterase Urine NEGATIVE (NEG) [facility] Urobilinogen Urine NORMAL (NORM) MG/DL [facility] WBC, Urine 1 (0-5) /HPF [facility] RBC, Urine 1 (0-3) /HPF [facility] Mucus, Urine SLIGHT /LPF [facility] Hyaline Casts, Urine 4(H) (0-2) LPF [facility] Clarity CLEAR (CLEAR) [facility] CULTURE INDICATED CULTURE NOT INDICATED [facility] Comment: Testing performed or reported by [facility], a Service of [facility], [address] [place] [address] Elvira Lopez MD, Medical Assistant Supervisor [facility]# [id number] Urine specimen (specimen) Urine specimen obtained by clean catch procedure / Unknown 10/25/2022 1:48 PM EST 10/25/2022 1:54 PM EST us Jt [facility] URINE ORDERABLES Final Re sult [facility] * (ABNORMAL) CBC and differential (10/25/2022 1:48 PM EST) White Blood Cells 10.3 (4.0-11.0 ) K/MM3 [facility] RBC 4.06(L) (4.70-6.1 0) M/MM3 [facility] Hgb 13.7 (13.7-17. 1) GM/DL [facility] Hematocrit 42.3 (40.5-50. 0) % [facility] MCV 104.2(H) (80.0-94. 0) FL [facility] MCH 33.7 (27.0-34. 0) PG [facility] MCHC 32.4(L) (33.0-37. 0) g/dL [facility] Platelets 232 (150-460) K/MM3 [facility] RDW-SD 50.7(H) (<47.0) FL [facility] MPV 9.8 (9.4-12.4 ) FL [facility] nRBC Count 0.0 #/100 WBC'S [facility] NRBC Absolute 0.0 K/MM3 [facility] Neutrophils Abs Auto 6.6 (1.3-7.0) K/MM3 [facility] Lymphocytes Relative 2.6 (0.8-3.1) K/MM3 [facility] Monocytes 0.7 (0.4-1.3) K/MM3 [facility] Eosinophils Relative 0.2 (0.0-0.4) K/MM3 [facility] Basophil ABS 0.1 (0.0-0.1) K/MM3 [facility] Granulocytes Absolute 0.1 K/MM3 [facility] Neutrophils % Auto 64.3 (44-76) % [facility] Lymphs 25.4 (15-43) % [facility] Monocytes Absolute 7.0 (4.5-10.5 ) % [facility] Eosinophils 2.3 (0-6) % [facility] Basophils Relative 0.5 (0-2) % [facility] Immature Granulocytes 0.5 % [facility] Comment: Testing performed or reported by [facility], a Service of [address] [address] Elvira Lopez MD, Medical Assistant Supervisor CLIA# [id number] Blood specimen (specimen) Venous blood / Unknown 10/25/2022 1:48 PM EST 10/25/2022 1:54 PM EST Jt [facility] BLOOD ORDERABLES Final Re sult Performing Organization Address City[facility] Co de Phone Number [facility] * (ABNORMAL) Renal function panel (10/25/2022 1:48 PM EST) Pathologist [facility] Glucose 116(H) (70-99) MG/DL [facility] BUN 25(H) (8-23) MG/DL [facility] Creatinine 1.7(H) (0.7-1.2) MG/DL [facility] Sodium 139 (133-145) MMOL/L [facility] Potassium 4.5 (3.6-5.2) MMOL/L [facility] Chloride 100 (98-107) MMOL/L [facility] Bicarbonate (CO2) 33(H) (22-29) MMOL/L [facility] Anion Gap 6 (4-17) [facility] Albumin 4.2 (3.4-4.8) GM/DL [facility] Calcium 9.5 (8.6-10.5) MG/DL [facility] Phosphorus, Serum 3.8 (2.5-4.5) MG/DL [facility] Est GFR Non 44 ML/MIN/1.7 3 M2 [facility] Comment: Creatinine based estimated glomerular filtration (eGFR) in adults is calculated using the National Kidney Foundation recommended 2020 CKD-EPI equation. Estimates GFR from serum creatinine, age and sex. Testing performed or reported by [facility], a Service of [address] [address] Elvira Lopez MD, Medical Assistant Supervisor CLIA# [id number] Blood specimen (specimen) Venous blood / Unknown 10/25/2022 1:48 PM EST 10/25/2022 1:54 PM EST Jt [facility] BLOOD ORDERABLES Final Re sult Performing Organization Address [facility] Co de Phone Number [facility] documented in this encounter Visit Diagnoses Diagnosis Stage 3a chronic kidney disease (HCC) documented in this encounter
--- OUTSIDE RECORDS SUMMARY | 2025-06-03 16:18 | XMS_ITS | Encounter Summary ---
Author Organization [employer] Address [address] [facility] [address] [place] [address] Care Team Providers Care Personal Shopper Name Role Phone Kristi Warren Primary Care Provider [phone] Reason for Visit * Reason Onset Date Comments Medication Question 07/15/2024 Encounter Details Date Type Department Care Team ([facility] st Contact Info) Description 07/15/2024 Telephone [facility] MEDICINE [address] [place] [address] Kristi Warren ANP [address] [place] [address] Medication Question Social History Tobacco Use Types [...] medications. The pt was recently discharged from [facility] after being in the hospital for a pneumothorax. Viktoria is concerned with the medications that the pt was discharged with and is apprehensive in regards to giving them to the pt. RN spoke with OMERO Song, who is in agreement that the pt can be scheduled for a [facility] appt. This will be forwarded to [facility] for scheduling. * Telephone Encounter - Trace Castaneda - 07/15/2024 8:46 AM EDT Tc from Viktoria from [facility] requesting a call back to compare medications and to see if the provider would like the patient to continue the medication documented in this encounter Plan of Treatment Upcoming Encounters Date Type Department Care Team (Late st Contact Info) Description 06/12/2025 1:00 PM EDT Office Visit [facility] MEDIC[facility] [address] [place] [address] Kristi Warren ANP [address] [place] [address] documented as of this encounter Goals Goal [...] documented as of this encounter Care Teams Personal Shopper Relationship Specialty Start Date End Date Kristi Warren ANP [address] [place] [address] PCP - General Family Medicine 03/24/20 [facility] 08/09/24 12/19/24 [facility] 12/09/24 documented as of this encounter
--- OUTSIDE RECORDS SUMMARY | 2025-06-03 16:18 | XMS_ITS | Encounter Summary ---
Author Organization [employer] Address [address] [facility] 7[address] [place] [address] Care Team Providers Care Tree Trimming Line Technician Name Role Phone Kristi Warren Primary Care Provider [phone] Encounter Details Date Type Department Care Team ([facility] Contact Info) Description 11/24/2022 Orders Only [facility] [address] [place], [place] [id number] Amalia Pierre LPN Social History Tobacco Use [...] Description 06/12/2025 1:00 PM EDT Office Visit [facility] MEDICINE [address] [place] [address] Kristi Warren ANP [address] [place], [place] [phone] documented as of this encounter Visit Diagnoses Not on filedocumented in this encounter Care Teams Tree Trimming Line Technician Relationship Specialty Start Date End Date Kristi Warren ANP [address] [place] [address] PCP - General Family Medicine 03/24/20 [facility] 08/09/24 12/19/24 [facility] 12/09/24 documented as of this encounter
--- OUTSIDE RECORDS SUMMARY | 2025-06-03 16:18 | XMS_ITS | Encounter Summary ---
Author Organization [employer] Address [address] [place] [address] Care Team Providers Care Yarn Packer Name Role Phone Kristi Warren Primary Care Provider [phone] Encounter Details Date Type Department Care Team (Late st Contact Info) Description 05/23/2025 Orders Only [facility] MEDICINE [address] [place], [place] [phone] Kristi Warren ANP [address] [place] [address] Social History Tobacco Use Types Packs/Day Years [...] 1:00 PM EDT Office Visit [facility] [address] [place] [address] Kristi Warren ANP [address] [place] [address] documented as of this encounter Goals Goal [...] documented as of this encounter Care Teams Yarn Packer Relationship Specialty Start Date End Date Kristi Warren ANP [address] [place] [address] PCP - General Family Medicine 03/24/20 [facility] 12/09/24 documented as of this encounter
--- OUTSIDE RECORDS SUMMARY | 2025-06-03 16:18 | XMS_ITS | Encounter Summary ---
Author Organization [facility], Address [address] [place] [address] Phone Care Team Providers Care Gas Meter Prover Name Role Phone Unavailable Primary Care Provider Unavailabl e Encounter Details Date Type Department Care Team (Late st Contact Info) Description 01/21/2022 Documentation Only [facility], [address] [place] [address] Jt Ochoa PA [address] [place] [address] Social History Tobacco Use Types [...]
--- OUTSIDE RECORDS SUMMARY | 2025-06-03 16:18 | XMS_ITS | Encounter Summary ---
Author Organization [facility] [place], Address [address] [place] [address] Phone Care Team Providers Care Sales Enablement Manager Name Role Phone Unavailable Primary Care Provider Unavailabl e Reason for Visit * Reason Comments Med Refill Encounter Details Date Type Department Care Team (Late st Contact Info) Description 10/15/2024 Refill [facility], [address] [place] [address] Jt Ochoa PA [address] [place] [address] Social History Tobacco Use Types [...]
--- OUTSIDE RECORDS SUMMARY | 2025-06-03 16:18 | XMS_ITS | Encounter Summary ---
Author Organization [facility] [place], Address [address] [place] [address] Phone Care Team Providers Care Mat Weaver Name Role Phone Unavailable Primary Care Provider Unavailabl e Encounter Details Date Type Department Care Team (Late st Contact Info) Description 01/27/2023 Orders Only [facility], [address] [place] [address] Jt Ochoa PA [address] [place] [address] Stage 3a chronic kidney disease [...]
--- OUTSIDE RECORDS SUMMARY | 2025-06-03 16:18 | XMS_ITS | Encounter Summary ---
Author Organization [facility], Address [address] [place] [address] Phone Care Team Providers Care Procurement Professional Name Role Phone Unavailable Primary Care Provider Unavailabl e Reason for Visit * Reason Comments Med Refill Encounter Details Date Type Department Care Team (Late st Contact Info) Description 10/20/2024 Refill [facility], [address] [place] [address] Jt Ochoa PA [address] [place] [address] Social History Tobacco Use Types [...]
--- OUTSIDE RECORDS SUMMARY | 2025-06-03 16:18 | XMS_ITS | Encounter Summary ---
Author Organization [facility] Address [address] [place] [address] Encounters * CPT with Suresh Manriquez at [facility] on 2025-04-18 { reasonForRequest : neck pain , patientReports : , de nies :[], chiefComplaints : Neck Pain , pmh : Hypertension, HIV/AIDS , allergies : No Known Drug Allergies , otherAllergies : , painAssessment : , visitOutcome : , additionalComments : 75 y.o male complains of Neck Pain\n\nPatients surrogate calling in to place a referral.\nPer CLIENT SOLUTIONS MANAGER patient has been complaining of posterior neck pain, CLIENT SOLUTIONS MANAGER gave him tylenol, he is currently sleeping, but CLIENT SOLUTIONS MANAGER reports to surrogate he still seems to be in pain.\nPer surrogate the barrel drum cutter have not reported any falls, trauma or strenuous activity.\nPatient did not complain of any chest pain or arm pain, no shortness of breath, no headache, no nausea or vomiting.\nSurrogate would like him to be evaluated, tomorrow 04/18.\n\nI provided information on the mobile health providerresponse time and advised the patient and/or caregiver to monitor reported signs and symptoms. I discussed the warning signs of when to seek emergency care. } Sent to a call for a pt [...] pink, warm, dry; Pt was treated in [place] ED on 04/15 for low bp and dehydration. [facility] consulted; Pt takes Metoprolol 12.5mg daily. Pt has a railroad signal and switch operator appt today and is told to hold Metoprolol until he talks to Cardiology. Surrogate is made aware. [facility] orders Toradol 15mg IM. Toradol 15mg IM administered. Red flags discussed. Pt has no further questions. ORAL_MEDICATION, EKG, POC_BLOODWORK Written by Suresh Manriquez on 2025-04-18
== END 2025-06-03 16:24 | disposition home or self-care (01) ==
LOC: HO.HUSH 15:23
PROVIDERS: PCP Nurse Practitioner Primary Care; Visit Provider Urology
DX: E11.69 Type 2 diabetes mellitus with other specified complication (principal); N52.1 Erectile dysfunction due to diseases classified elsewhere; E29.1 Testicular hypofunction
CPT/HCPCS: 99214

== ENCOUNTER → 2025-06-03 15:23 | Outpatient (BNVA) | payer OTHER, SELFPAY | PROVIDERS: PCP Nurse Practitioner Primary Care; Visit Provider Urology | DX: E11.69 Type 2 diabetes mellitus with other specified complication (principal); E29.1 Testicular hypofunction; N52.1 Erectile dysfunction due to diseases classified elsewhere | CPT/HCPCS: 99212 ==

== ENCOUNTER 2025-06-11 14:50 | Outpatient (AMB) | payer OTHER, SELFPAY ==
--- NOTE | 2025-06-11 14:57 | A.OFFVIS_ITS ---
Vital Signs 06/11/25 14:58 Weight 147 lb BP 113/58 L Blood Pressure Location Lt brachial Position Sitting Respiration 18 Pulse 70 Pulse Source Pulse Oximeter Pulse Oximetry (%) 95 Oxygen Delivery Method Room Air Intake Visit Reasons: Neck pain Oil Exploration Engineer Required: Yes Oil Exploration Engineer Name: [id number] Allergies No Known Allergies (No Known Allergies*) Allergy (Verified 06/11/25 15:00) HPI Comments Details: Mr. Baeza is in my office today 2 years after the last visit he had in this office. At that time he was under care of Dr. Clark with cubital and carpal tunnel syndromes. He reported today that although the surgeries helped, his cervical pain continues to progressed. In the past he received diagnostic medial branch block C4-C5 C6 bilateral which did not demonstrate significant pain relief. Today he reports weakness in bilateral upper extremities, numbness in bilateral bilateral hands and fingers, slight swelling in bilateral hands and fingers. It looks like that his condition progress to worse. I will schedule him for the MRI of the cervical spine. He does not have any pacemakers or stents in the heart. He has CHF. Prior: ? Patient is a 72 years old [place] speaking male presenting with chronic neck pain. He is followed by orthopedic providers for right shoulder pain and has been referred to us for neck pain. Patient reports he recently received right shoulder cortisone injection on 07/07/22 with good relief and continues to have significant neck stiffness, pain with range of motion especially with right lateral bending and muscle tenderness with spasms. Patient reports associated bilateral upper and lower extremities numbness and tingling with history of bilateral carpal tunnel syndrome, diabetic peripheral neuropathy, DM on insulin, osteoarthritis, CKD and restless leg syndrome. Abnormal EMG and NVC for lower extremities on 07/08/20 showed moderate to severe axonal sensory and motor peripheral neuropathy. EMG and NVC for upper extremities on 01/2021 showed severe SM peripheral neuropathy with features of demyelination and axonal loss. Patient is under care of Dr. Fuller from neurology and has been treating peripheral neuropathy with gabapentin and for restless leg syndrome for which he takes pramipexole. For his chronic back and neck pain, the patient has failed previous physical therapy, NSAIDs, Gabapentin, muscle relaxers, and is currently on Tramadol with partial relief. Pain affects his daily activities, functioning and sleep. Patient denies any fever, weight changes, visual disturbances, dizziness, bowel or bladder incontinence, or saddle anesthesia. He reports weakness in lower extremities. Ambulates with mild antalgic gait without celeste ting devices. Patient reports his blood sugars are well controlled and most recent A1C was around 6.0. Last FBS on 03/03/22 was 110. We will reach out to his PCP to confirm the most recent A1C readings. Patient reports receiving a Medrol Santosh a few times for neck pain which provided him significant relief. I discussed with the patient the importance of closely monitoring his blood sugars and total dose of all steroid injections from multiple providers to concentrate on most concerning pain generators as well as avoiding systemic oral steroids. Patient was previously referred to the Hand surgeon but has not been seen yet. Cervical spine xray 05/2022 showed mild levoscoliosis cervical spine with moderate left facet joint arthropathy. No visible acute fracture or dislocation seen. Lumbar spine x-ray showed bilateral pedicle screws at L4 and S1 vertebra with interconnecting rods for posterior fusion. Patient has a history of posterior fusion with hardware from L4-S1 by Dr. Schulz in 2015. He then had a revision for loosening of screws in 2016. Dr. Schulz last saw him in February 2018. Per cardiology report, the patient had a trial of bilateral Medial Branch Blocks at L3, L4, and L5 to address his axial back pain in 2018. Unfortunately, the patient went into cardiac arrest with PEA upon anesthesia induction. He was then successfully resuscitated. Patient also underwent cardiac catheterization but no interventions. Per PCP notes regarding the patient's last colonoscopy in 2009, the patient also had bradycardic cardiac arrest due to anesthesia. [facility] Medical History (Updated 06/11/25 @ 15:14 by Jose Rollins MD) Atherosclerotic cardiovascular disease Encounter for assessment of decision-making capacity Pneumonia Encounter for medication monitoring Depression Restless leg syndrome Peripheral neuropathy Personal history of nicotine dependence History of non-ST elevation myocardial infarction (NSTEMI) (~09/2018) History of cardiac arrest (~09/2018) Other and unspecified hyperlipidemia Essential hypertension Type 2 diabetes mellitus with unspecified complications Primary osteoarthritis, left hand Primary osteoarthritis, right hand Surgical History History of epidermal inclusion cyst excision (~07/2021) History of hand surgery (~03/2015) History of cataract surgery (~2017) History of cardiac catheterization (~10/2018) Family History Mother No problems noted. Mother No problems noted. 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 Review of Systems Const All systems reviewed & are unremarkable except as noted in HPI and below ENT Reports Normal hearing present Neuro Reports Normal hearing present, Denies Abnormal speech present and Denies confusion Psych Denies confusion Physical Exam Vital Signs: Last Vital Signs Pulse 70 06/11/25 14:58 Resp 18 06/11/25 14:58 BP 113/58 L 06/11/25 14:58 Pulse Ox 95 06/11/25 14:58 Oxygen Delivery Method Room Air 06/11/25 14:58 Const General: cooperative, healthy appearing, no acute distress, alert and awake; No confusion Nutritional Appearance: well nourished Orientation/consciousness: patient oriented x3 and No confusion Limitations: no limitations HEENT Head: Yes normal to inspection, Yes normocephalic and Yes atraumatic Ears: hearing grossly normal bilaterally and external ears normal General nose exam: Normal external nose present and No nasal discharge present Face and sinus: Yes normal facial exam Eyes General: appearance normal, both eyes and all related structures Visual Vuong: normal visual vuong by confrontation Pupils: Equal, round and reactive pupils present EOM: EOMs intact bilaterally Neck Other: Patient with decreased cervical ROM in all planes/especially with right lateral rotation. Reports increased pain with cervical extension and flexion. Spurling compression test positive bilaterally. Pain is unchanged by Spurling maneuver with retraction. Elvey's tension test positive on the right, with radiation of pain from neck to wrist. Bilateral hand pain with h/o CTS. Lhermitte's test was negative. Diminished DTRs bilaterally. Patient demonstrated 5/5 motor strength of bilateral upper extremities. 2 + radial pulses. Significant tightness throughout right upper trapezius as well as TTP throughout bilateral upper trapezius muscles. Mild paravertebral tenderness over facet joints bilaterally. No clonus.rally. Neck: Yes normal visual inspection, Yes no lymphadenopathy, Yes no meningeal signs, Yes supple, No anterior neck swelling and Yes no JVD Resp Effort & Inspection: normal respiratory effort, able to speak in complete sentences, no audible wheezes, no cough, no respiratory distress and symmetric chest movement Cardio Jugular venous distension: no JVD Bruits: no carotid bruits Peripheral pulses: radial pulses present, posterior tibial pulses present and dorsalis pedis present GI Inspection: Yes normal to inspection and No distended Palpation (GI): Soft to palpation and nontender General: Yes no CVA tenderness Back/Spine/Pelvis Back: no CVA tenderness Cervical Spine: cervical muscular tenderness, pain with cervical ROM, cervical spasm, Cervical spine tenderness and No step off deformity Thoracic/Lumbar Spine: thoracic and lumbar spine normal to inspection, Thoracic/lumbar spine scar(s), No paraspinal muscle tenderness, thoraco-lumbar ROM limited, No thoracic spinal tenderness and No lumbar spinal tenderness Skin General skin exam: no rashes or lesions noted Wounds: no wounds Neuro General: patient oriented x3, gait normal, moves all extremities, no meningeal signs, CN's II-XI intact bilaterally and No confusion Cranial nerves: Yes Equal, round and reactive pupils present, Yes Bilaterally intact EOM present, Yes Nystagmus not present, Yes Normal hearing present and Yes Ability to bilaterally elevate shoulders present Cognition (Neuro): normal cognition Speech: No Abnormal speech present Gait exam (Neuro): Antalgic gait present and Assistive device used Motor exam (neuro): 5/5 motor strength present throughout, no tremor noted and Motor abnormalities not present Coordination: [id number]-[id number] test normal Extrem Other: Bilateral hand and wrist pain with ROM. +Tinels bilaterally. No swelling or redness. General: Yes capillary refill normal, Yes no calf tenderness and Yes pedal edema Psych Appearance: grossly normal Mental Status: mental status grossly normal Speech and movement: Normal speech and movement present Affect: normal affect Attitude: cooperative Thought process: Normal thought process present Thought content: Normal thought content present Insight: Good insight present (Psych) Judgement: Good judgement present (Psych) Assessment & Plan Assessment & Plan (1) Carpal tunnel syndrome, left: Code(s): G56.02 - Carpal tunnel syndrome, left upper limb Category: Medical (2) Carpal tunnel syndrome, right: Comment: Carpal tunnel release 08/29/2022 Code(s): G56.01 - Carpal tunnel syndrome, right upper limb Category: Medical (3) Primary osteoarthritis, left hand: Code(s): M19.042 - Primary osteoarthritis, left hand Category: Medical (4) Primary osteoarthritis, right hand: Code(s): M19.041 - Primary osteoarthritis, right hand Category: Medical (5) Cervical radiculopathy: Code(s): M54.12 - Radiculopathy, cervical region Category: Medical (6) Diabetic peripheral neuropathy: Code(s): E11.42 - Type 2 diabetes mellitus with diabetic polyneuropathy Category: Medical (7) Cervical spondylosis: Code(s): M47.812 - Spondylosis without myelopathy or radiculopathy, cervical region Category: Medical (8) Muscle spasms of neck: Code(s): M62.838 - Other muscle spasm Category: Medical (9) Spinal stenosis in cervical region: Code(s): M48.02 - Spinal stenosis, cervical region Category: Medical Plan It looks like that the condition of this patient went to worse. He reports now weakness and numbness in bilateral upper extremities. I will schedule him for MRI of the cervical spine. After the MRI procedure he will give me a call and schedule appointment as soon as possible with me. Orders: Orders MR cervical spine wo con Today M47.812 - Spondylosis without myelopathy or radiculopathy, cervical region, M48.02 - Spinal stenosis, cervical region, M54.12 - Radiculopathy, cervical region Coding Level of Care Code Est Pt Level 3 (95788) Diagnoses Carpal tunnel syndrome, left G56.02 Carpal tunnel syndrome, right G56.01 Primary osteoarthritis, left hand M19.042 Primary osteoarthritis, right hand M19.041 Cervical radiculopathy M54.12 Diabetic peripheral neuropathy E11.42 Cervical spondylosis M47.812 Muscle spasms of neck M62.838 Spinal stenosis in cervical region M48.02
[2025-06-11 14:58] VITALS: BP 113/58; PULSE 70; RESP 18; O2SAT 95
--- OUTSIDE RECORDS SUMMARY | 2025-06-11 17:06 | XMS_ITS | Encounter Summary ---
Author Organization [employer] Address [address] [place] [address] Care Team Providers Care Bowling Ball Engraver Name Role Phone Kristi Warren Primary Care Provider [phone] Reason for Visit * Reason Comments Med Refill Encounter Details Date Type Department Care Team (Late Contact Info) Description 11/18/2022 Refill [facility] [address] [place], [place] [phone] Kristi Warren ANP [address] [place], [place] [phone] Type 2 diabetes mellitus with diabetic nephropathy, with long-term current use of insulin ([facility]) (Primary Dx) Social History Tobacco Use Types [...] Description 06/12/2025 1:00 PM EDT Office Visit [facility] [address] [place], [place] [phone] Kristi Warren ANP [address] [place] [address] documented as of this encounter Visit Diagnoses Diagnosis Type 2 diabetes mellitus with diabetic nephropathy, with long-term current use of insulin ([facility])- Primary documented in this encounter Care Teams Bowling Ball Engraver Relationship Specialty Start Date End Date Kristi Warren ANP [address] [place] [address] PCP - General Family Medicine 03/24/20 [facility] 08/09/24 12/19/24 [facility] 12/09/24 documented as of this encounter
--- OUTSIDE RECORDS SUMMARY | 2025-06-11 17:06 | XMS_ITS | Encounter Summary ---
Author Organization [facility], Address [address] [place] [address] Phone Care Team Providers Care Lathe Setup Operator Name Role Phone Unavailable Primary Care Provider Unavailabl e Encounter Details Date Type Department Care Team (Late st Contact Info) Description 01/27/2023 Orders Only [facility], [address] [place] [address] Jt Ochoa PA [address] [place] [address] Stage 3a chronic kidney disease [...]
--- OUTSIDE RECORDS SUMMARY | 2025-06-11 17:06 | XMS_ITS | Clinical Summary ---
Author Organization [employer] Address [address] [facility] [address] [place] [address] Care Team Providers Care Custom Dressmaker Name Role Phone Kristi Warren BATSHEVA Primary Care Provider [phone] Allergies No known active allergies Medications * [...] pain. 180 tablet 3 Active Continuous Glucose Film Color Tester (FreeStyle Sherley 2 [place]) deviceIndication s:Type 2 diabetes mellitus with stage 3 chronic kidney disease, with long-term current use of insulin, unspecified whether stage 3a or 3b CKD (CMS/HCC) USE DIRECTED SCAN EVERY 8 HOURS 1 each Active Blood Glucose Monitoring Suppl (FreeStyle Garrison Lite) w/Device kit USE DIRECTED TO TEST BLOOD SUGAR THREE TIMES DAILY 1 kit 10/30/2 024 Active naloxone (Narcan) 4 mg/0.1 mL nasal sprayIndications :Misuse of medication,rn long term care (current) use of opiate analgesic Administer 1 [...] unspecified whether stage 3a or 3b CKD ([facility]) USE DIRECTED TO TEST BLOOD SUGAR CHANGE EVERY 14 DAYS 2 each 3 025 Active empagliflozin (Jardiance) 25 MGIndications:Ty pe 2 diabetes mellitus with stage 3 chronic kidney disease, with long-term current use of insulin, unspecified whether stage 3a or 3b CKD ([facility]) TAKE 1 TABLET BY MOUTH EVERY MORNING 90 tablet 1 025 Active FREESTYLE LITE test stripIndications :Type 2 diabetes mellitus with unspecified complications ([facility]) test blood sugars twice a day 100 [...] BEDTIME 90 tablet 1 025 2024 Discontinued furosemide (Lasix) 40 MG tablet Take 40 [...] intervention , Patient to reach out to [facility] team as needed, Comply with medication , [...] June 2024 which was ordered by his assembly riveter. Results did not show atrial fibrillation. - the patient was seen by a assembly riveter while int hospital and telemetry tracing showed atrial fibrillation per assembly riveter. - the patient was started on eliquis but it was not continued after he was discharged from the assisted for unclear reasons. - due to increase risk of fall, will consult with assembly riveter. The patient is taking aspirin and cilostazol for PAD. Will consult with assembly riveter. Metabolic encephalopathy 08/06/2024 Assessment & Plan (08/06/2024 [...] shoulder Personal history of nicotine dependence 05/15/20 Primary osteoarthritis, right hand 05/15/2023 Right knee [...] to low BP. - will consult with assembly riveter for optimal BP management plan. Mood disorder 07/04/2017 Onychomycosis 07/04/2017 Osteoarthritis of right knee 07/04/2017 Tobacco dependence syndrome 07/04/2017 Stage 3 chronic kidney disease 07/04/2017 Overview (05/25/2023): Update for Diagnosis Load Retinopathy 05/29/2012 Encounters Date Type Department Care Team Description 06/11/2025 Telephone [facility] MEDICINE [address] [place] [phone] Kristi Warren ANP Durable Medical Equipment 06/05/2025 Telephone [facility] MEDICINE [address] [place] [phone] Kristi Warren ANP Prior Authorization 06/02/2025 Refill [facility] MED[facility]INE [address] [place] [phone] Katiana Villarreal, MARIA R Diabetic nephropathy associated with type 2 diabetes mellitus ([facility]) (Primary Dx) 05/27/2025 Orders Only GENERIC EXTERNAL DATA DEPARTMENT Provider, Generic External Data 05/26/[address] [address] Kristi Warren ANP 05/23/2025 Orders Only [facility] MEDICINE [address] [place] [phone] Kristi Warren ANP 05/23/[address] [address] Mary Carmen, MD Beny Insomnia, unspecified type 05/20/2025 Orders Only [facility] MEDICINE [address] [place] [phone] Kristi Warren ANP Abnormal weight loss (Primary Dx) 05/20/2025 Telephone [facility] [address] [place] [phone] ABD/PELVIS ORDER 05/19/2025 Refill [facility] MED[facility]INE [address] [place] [phone] Kristi Warren ANP History of non-ST elevation myocardial infarction (NSTEMI) 05/12/2025 1:00 PM EDT Office Visit [facility] MEDICINE [address] [place] [phone] Kristi Warren ANP Neck pain (Primary Dx); Dry skin; Easy bruising; Fatigue, unspecified type; Anorexia; Moderate protein-calorie malnutrition (CMS/HCC) 05/12/2025 Travel 05/09/[address] [address] Kristi Warren ANP chart prep 05/09/[address] [address] Kristi Warren ANP Nurse Triage 04/29/[address] [address] Kristi Warren ANP Durable Medical Equipment 04/25/[address] [phone] Kristi Warren ANP Insomnia, unspecified type 04/23/2025 [facility] [address] [place] [phone] ABD/PELVIS ORDER 04/22/[address] [address] Kristi Warren ANP ER Follow-up; fyi 04/19/2025 Travel 04/18/[address] [address] Norma Campos PharmD 04/18/[address] [address] Kristi Warren ANP Nurse Triage 04/16/[address] [address] Norma Campos, PharmD 04/15/2025 1:20 PM EDT Office Visit [facility] [address] [place] [phone] Amy Fry MD Paroxysmal atrial fibrillation ([facility]) (Primary Dx) 04/15/2025 Orders Only GENERIC EXTERNAL DATA DEPARTMENT Provider, Generic External Data 04/15/[address] [address] Kristi Warren ANP Nurse Outreach; 911 dispatched 04/15/[address] [address] Kandace Harris gang knife fish chopper 04/15/2025 Travel 04/12/2025 Results Follow-Up [facility] [place] [address] Kristi Warren ANP POCT Glucose, POCT HGB A1C, Sed Rate by Modified Westergren, Additional followed-up results: 4 04/02/2025 Telephone [facility] [place] [address] Kristi Warren ANP Durable Medical Equipment 04/01/2025 11:15 AM EDT Office Visit [facility] [place] [address] Kristi Warren ANP Diabetic nephropathy associated with type 2 diabetes mellitus (CMS/HCC) (Primary Dx); Essential hypertension; At risk for polypharmacy; Hypotension, unspecified hypotension type; Abnormal weight loss; Diarrhea, unspecified type; Callus between toes; Recurrent tinea pedis; Moderate protein-calorie malnutrition (CMS/HCC); Anorexia; Frail elderly; Incontinence of feces, unspecified fecal incontinence type; Severe protein-calorie malnutrition (CMS/HCC) 04/01/2025 Refill [facility] [place] [address] Kristi Warren ANP Insomnia, unspecified type 04/01/2025 Travel 04/01/2025 Telephone [facility] [place] [address] Kristi Warren ANP Nurse Triage 03/31/[address] [address] Kristi Warren ANP Referral 03/31/2025 Orders Only GENERIC EXTERNAL DATA DEPARTMENT Provider, Generic External Data 03/31/2025 Telephone [facility] [place] [address] Kristi Warren ANP Durable Medical Equipment 03/13/2025 2:30 PM EDT Office Visit [facility] [place] [address] Kristi Warren ANP Cervical stenosis of spine (Primary Dx); Diabetic nephropathy associated with type 2 diabetes mellitus (CMS/HCC); Hypotension, unspecified hypotension type; Unintentional weight loss; Dry skin 03/13/2025 Travel 03/12/2025 Telephone [facility] [address] [place] [phone] Kristi Warren ANP chart prep from Last [...] Description 06/12/2025 1:00 PM EDT Office Visit [facility] MEDICINE [address] [place], [place] [phone] Kristi Warren ANP [address] [place], [place] [phone] Health Maintenance Due Date Last Done Comments [...] associated with type 2 diabetes mellitus (CMS/HCC) ALBUMIN, RANDOM URINE W/CREATININE Routine 03/31/2025 11:34 AM EDT POCT GLYCATED HEMOGLOBIN, TOTAL Routine 03/13/2025 3:05 PM EDT Diabetic nephropathy associated with type 2 diabetes mellitus (CMS/HCC) POCT GLUCOSE Routine 03/13/2025 3:05 PM EDT Diabetic nephropathy associated with type 2 diabetes mellitus ([facility]/HCC) HM COLONOSCOPY Routine 07/26/2010 from Last 3 Months or Most Recently Relevant to Health Maintenance Results * (ABNORMAL) CBC (05/27/2025 9:04 AM EDT) Only the most recent of2 resultswithin the time period is included. White Blood Count 7.3 4.8 - 10.8 X10*3/uL [facility] Red Blood Count 4.67 4.60 - 5.80 X10*6/uL [facility] Hemoglobin 16.4 14.0 - 18.0 g/dl [facility] Hematocrit 47.3 42.0 - 52.0 % [facility] Mean Corpuscular Volume 101.3(H) 80.0 - 98.0 fL [facility] Mean Corpuscular Hemoglobin 35.1(H) 27.0 - 33.0 pg [facility] Mean Corpuscular HGB Conc 34.7 31.0 - 36.0 g/dl [facility] Red Cell Distribution Width 14.4 11.0 - 16.0 % [facility] Platelet Count 187 160 - 400 X10*3/uL [facility] Mean Platelet Volume 10.0 9.4 - 12.4 fL [facility] NRBC Pct Auto 0.0 0.0 - 0.2 /100WBC [facility] NRBC Abs Auto 0.000 0.0 - 0.012 X10*3/uL [facility] 05/27/2025 9:04 AM EDT 05/27/2025 9:04 AM EDT us Generic External Data Provider LAB BLOOD ORDERAB LES Final Result [facility] [address] [place] [phone] * Testosterone, Total, males (Adult), IA (05/27/2025 9:04 AM EDT) Only the most recent of2 resultswithin the time period is included. Testosterone, Total 300 250 - 1100 ng/dL [facility] Comment:Men with clinically significant hypogonadalsymptoms and testosterone values repeatedly inthe range of the 200-300 ng/dL or less, maybenefit from testosterone treatment afteradequate risk and benefits counseling.For additional information, please refer [email or web address] [email or web address]/faq/[email or web address](This link is being provided for informational/educational purposes only.)This test was developed and its analytical performancecharacteristics have been determined by [employer] [place], [place]. It hasnot been cleared or approved by the U.S. Food and DrugAdministration. This assay has been validated pursuantto the CLIA regulations and is used for clinicalpurposes.THIS TEST WAS PERFORMED AT:[employer] [place] [phone] MCCURDY MD,PHD 05/27/2025 9:04 AM EDT 05/27/2025 9:04 AM EDT us Generic External Data Provider LAB BLOOD ORDERAB LES Final Result [facility] [address] [place] [phone] * PSA,Total (05/27/2025 9:04 AM EDT) Only the most recent of2 resultswithin the time period is included. Prostate Specific Antigen 0.38 <0.05 - 4.0 ng/mL [facility] Comment:PSA methodology: Abb wendy Alinity i ChemiluminescentMicroparticle Immunoassay (CMIA) 05/27/2025 9:04 AM EDT 05/27/2025 9:04 AM EDT Generic External Data Provider LAB BLOOD ORDERAB LES Final Result Performing Organization Address [facility] de Phone Number [facility] [address] [place] [phone] * (ABNORMAL) High Sensitivity Troponin I (04/15/2025 4:07 PM EDT) [facility] TROPONIN I HIGH SENSITIVITY 35.7(H) <3.5 - 35.0 ng/L [facility] Comment:The Bueno high sens itivity Troponin-I results should beused in conjunction with other diagnostic information suchas ECG, clinical observations and information, and patientsymptoms to aid in the diagnosis of CO. 04/15/2025 4:07 PM EDT 04/15/2025 4:10 PM EDT Generic External Data Provider LAB BLOOD ORDERAB LES Final Result Performing Organization Address [facility] de Phone Number [facility] [address] [place] [phone] * SARS-CoV-2 RNA, Influenza A/B, and RSV RNA, Ql NAAT (04/15/2025 4:06 PM EDT) [facility] Influenza A PCR NEGATIVE Negative [facility] Influenza B PCR NEGATIVE Negative [facility] Resp Syncy Virus RNA Qual PCR NEGATIVE Negative [facility] SARS COV2 PCR NEGATIVE Negative [facility] Comment:All test results mus t [...] use by authorized laboratories.Testing performed on the [employer] GeneXpert utilizingreal-time RT-PCR.All SARS CoV2 and positive influenza A/B results arereported to [facility]. 04/15/2025 4:06 PM EDT 04/15/2025 4:10 PM EDT us Generic External Data Provider LAB MICROBIOLOGY - GENERAL ORDERABLES Final Result [facility] [address] [place] [phone] * (ABNORMAL) CBC auto differential (04/15/2025 4:06 PM EDT) Only the most recent of2 resultswithin the time period is included. White Blood Count 8.2 4.8 - 10.8 X10*3/uL [facility] Red Blood Count 4.58(L) 4.60 - 5.80 X10*6/uL [facility] Hemoglobin 15.6 14.0 - 18.0 g/dl [facility] Hematocrit 44.5 42.0 - 52.0 % [facility] Mean Corpuscular Volume 97.2 80.0 - 98.0 fL [facility] Mean Corpuscular Hemoglobin 34.1(H) 27.0 - 33.0 pg [facility] Mean Corpuscular HGB Conc 35.1 31.0 - 36.0 g/dl [facility] Red Cell Distribution Width 14.1 11.0 - 16.0 % [facility] Platelet Count 156(L) 160 - 400 X10*3/uL [facility] Mean Platelet Volume 9.6 9.4 - 12.4 fL [facility] Neutrophils Percent Auto 56.6 45 - 73 % [facility] Imm Gran Pct Auto 0.4 0.0 - 0.4 % [facility] Lymphocytes Percent Auto 31.7 20 - 40 % [facility] Monocytes Percent Auto 9.9 2 - 11 % [facility] Eosinophils Percent Auto 0.9 0 - 4 % [facility] Basophils Percent Auto 0.5 0 - 2 % [facility] NRBC Pct Auto 0.2 0.0 - 0.2 /100WBC [facility] Neutrophils Absolute Auto 4.6 2.0 - 8.3 x10*3/uL [facility] Imm Gran Abs Auto 0.03 0.00 - 0.03 X10*3/uL [facility] Lymphocytes Absolute Auto 2.6 1.2 - 4.9 X10*3/uL [facility] Monocytes Absolute Auto 0.8 0.1 - 1.2 X10*3/uL [facility] Eosinophils Absolute Auto 0.1 0.0 - 0.4 X10*3/uL [facility] Basophils Absolute Auto 0.0 0.0 - 0.2 X10*3/uL [facility] NRBC Abs Auto 0.020(H) 0.0 - 0.012 X10*3/uL [facility] 04/15/2025 4:06 PM EDT 04/15/2025 4:10 PM EDT us Generic External Data Provider LAB BLOOD ORDERAB LES Final Result [facility] [address] [place] [phone] * (ABNORMAL) Magnesium (04/15/2025 4:06 PM EDT) Magnesium 1.4(LL) 1.6 - 2.6 mg/dL [facility] Comment:Critical value for t est(s):MAGS Results called to and readback by:DR BLACK Person calling:[email or web address] Date:[id number] 04/15/2025 4:06 PM EDT 04/15/2025 4:10 PM EDT us Generic External Data Provider LAB BLOOD ORDERAB LES Final Result [facility] [address] [place] [phone] * (ABNORMAL) Comprehensive Metabolic Panel (04/15/2025 4:06 PM EDT) Sodium 140 135 - 145 mmol/L [facility] Potassium 3.4 3.3 - 5.1 mmol/L [facility] Chloride 98 96 - 108 mmol/L [facility] Carbon Dioxide 33(H) 22 - 29 mmol/L [facility] Anion Gap 12 12 - 20 [facility] Urea Nitrogen (BUN) 11 9 - 16 mg/dL [facility] Creatinine, Serum 1.16 0.5 - 1.4 mg/dL [facility] Creatinine Clr Calc Pharmacy 49.6 [facility] Comment:eGFR (calculated fro m the MDRD study equation) and eCrCl(calculated from the Cockcroft-Gault equation) are based ondifferent parameters and may not yield comparable results.If eCrCl result is absurd, please check patient'sheight/weight. Estimated Glomerular Filt Rate >60 [facility] Comment:Chronic Kidney Disea se: Estimated GFR < 60 mL/min/1.57j7Dprqeh Kidney Disease: Estimated GFR < 15 mL/min/1.73m2 Glucose 119(H) 60 - 115 mg/dL [facility] Calcium 8.5 8.4 - 10.2 mg/dL [facility] Bilirubin, Total 1.5(H) 0.0 - 1.0 mg/dL [facility] Aspartate Amino Transferase 60(H) 5 - 37 U/L [facility] Alanine Aminotransferase 71(H) 0 - 40 U/L [facility] Total Protein 5.6(L) 6.5 - 8.0 g/dL [facility] Albumin Level 3.6 3.5 - 5.0 g/dL [facility] Alkaline Phosphatase 89 39 - 117 U/L [facility] 04/15/2025 4:06 PM EDT 04/15/2025 4:10 PM EDT us Generic External Data Provider LAB BLOOD ORDERAB LES Final Result Performing Organization Address [facility] Co de Phone Number [facility] [address] [place] [phone] * ECG 12 lead (04/15/2025 2:50 PM EDT) Narrative Amy Fry MD - 04/15/2025 2:50 PM EDT A fib with RVR HR 128 Amy Estrada MD ECG ORDERABLES Final Result * TSH W/Reflex to FT4 (03/31/2025 11:41 AM EDT) TSH reflex Free T4 2.87 0.32 - 4.0 uIU/mL [facility] Blood Venous blood specimen / Unknown 03/31/2025 11:41 AM EDT 03/31/2025 11:41 AM EDT Kristi HERMAN LAB BLOOD ORDERABLES Final Resul t Performing Organization Address [facility] Co de Phone Number [facility] [address] [place] [phone] * Hepatitis C Antibody with Reflex to HCV, RNA, Quantitative, Real-Time PCR (03/31/2025 11:41 AM EDT) Hepatitis C Antibody Nonreactive Nonreactive [facility] Comment:Antibodies to HCV no t detected; does not exclude early acuteHCV infection. Blood Venous blood specimen / Unknown 03/31/2025 11:41 AM EDT 03/31/2025 11:41 AM EDT Kristi HERMAN LAB BLOOD ORDERABLES Final Resul t Performing Organization Address City/[facility] Co de Phone Number [facility] [address] [place] [phone] * HIV-1/2 Antigen and Antibodies, Fourth Generation, with Reflexes (03/31/2025 11:41 AM EDT) Pathologist [facility] HIV AB/AG Nonreactive Nonreactive [facility] Comment:HIV-1 p24 Ag and/or HIV-1/HIV-2 Ab not detected.A test result that is nonreactive does not exclude thepossibility of exposure to or infection with HIV-1 and/orHIV-2. Nonreactive results in this assay for individualswith prior exposure to HIV-1 and/or HIV-2 may be due toantigen and antibody levels that are below the limit ofdetection of this assay.The [employer] HIV Ag/Ab Combo assay result andsupplemental assay results should be interpreted inconjunction with the patient's clinical presentation,history and other laboratory results. If the results areinconsistent with clinical evidence, additional testing issuggested to confirm the result. Blood Venous blood specimen / Unknown 03/31/2025 11:41 AM EDT 03/31/2025 11:41 AM EDT us Kristi Warren [facility] LAB BLOOD ORDERABLES Final Resul t Performing Organization Address [facility]/ZIP Co de Phone Number [facility] [address] [place] [phone] * Sed Rate by Modified Louren (03/31/2025 11:41 AM EDT) Pathologist [facility] Erythrocyte Sedimentation Rate 2 0 - 15 MM/HR [facility] Comment:Patients with polycy themia and many hemoglobin abnormalitiesmay have depressed sed rates whereas patients with anemiamay have elevated sed rates. Blood Venous blood specimen / Unknown 03/31/2025 11:41 AM EDT 03/31/2025 11:41 AM EDT us Kristi Warren [facility] LAB BLOOD ORDERABLES Final Resul t Performing Organization Address City/[facility]/ZIP Co de Phone Number [facility] [address] [place] [phone] * C-reactive Protein (03/31/2025 11:41 AM EDT) C Reactive Protein <0.04 < or = 0.50 mg/dL [facility] Blood Venous blood specimen / Unknown 03/31/2025 11:41 AM EDT 03/31/2025 11:41 AM EDT Kristi Warren [facility] LAB BLOOD ORDERABLES Final Resul t Performing Organization Address City/[facility]/ZIP Co de Phone Number [facility] [address] [place] [phone] * (ABNORMAL) Hepatic Function Panel (03/31/2025 11:41 AM EDT) Bilirubin, Total 1.6(H) 0.0 - 1.0 mg/dL [facility] Bilirubin, Direct 0.5 0.0 - 0.5 mg/dL [facility] Aspartate Amino Transferase 46(H) 5 - 37 U/L [facility] Alanine Aminotransferase 41(H) 0 - 40 U/L [facility] Total Protein 5.8(L) 6.5 - 8.0 g/dL [facility] Albumin Level 3.6 3.5 - 5.0 g/dL [facility] Alkaline Phosphatase 83 39 - 117 U/L [facility] Blood Venous blood specimen / Unknown 03/31/2025 11:41 AM EDT 03/31/2025 11:41 AM EDT Kristi Warren ANP LAB BLOOD ORDERABLES Final Resul t Performing Organization Address City/[facility]/ZIP Co de Phone Number [facility] [address] [place] [phone] * Lipid Panel, Standard (03/31/2025 11:41 AM EDT) Triglycerides 64 <150 mg/dL [facility] Comment:Desirable Triglyceri de: less than 150 mg/dLBorderline High Triglyceride 150-199 mg/dLHigh Triglyceride: 200-499 mg/dLVery High Triglyceride: greater than or equal to 5OO mg/dL Cholesterol 86 <200 mg/dL [facility] Comment:Desirable Cholestero l: less than 200 mg/dLBorderline High Cholesterol: 200-239 mg/dLHigh Cholesterol: greater than 239 mg/dL LDL Cholesterol Calculated 30 <100 mg/dL [facility] Comment:Desirable LDL: less than 100 mg/dLNear Optimal/Above Optimal LDL: 110- 129 mg/dLBorderline High LDL: 130-159 mg/dLHigh LDL: 160-189 mg/dLVery High LDL: greater than or equal to 190 mg/dL HDL Cholesterol 44 >40 mg/dL [facility] Comment:Desirable HDL: great er than 40 mg/dL Note: This HDL assay may give artificially low results in patients with liver disease. Blood Venous blood specimen / Unknown 03/31/2025 11:41 AM EDT 03/31/2025 11:41 AM EDT us [facility] LAB BLOOD ORDERABLES Final Resul t [facility] [address] [place] [phone] * (ABNORMAL) Basic Metabolic Panel (03/31/2025 11:41 AM EDT) Sodium 140 135 - 145 mmol/L [facility] Potassium 3.7 3.3 - 5.1 mmol/L [facility] Chloride 99 96 - 108 mmol/L [facility] Carbon Dioxide 30(H) 22 - 29 mmol/L [facility] Anion Gap 15 12 - 20 [facility] Urea Nitrogen (BUN) 9 9 - 16 mg/dL [facility] Creatinine, Serum 0.97 0.5 - 1.4 mg/dL [facility] Creatinine Clr Calc Pharmacy TNP [facility] Comment:Unable to calculate eCrCL; all parameters not provided. Estimated Glomerular Filt Rate >60 [facility] Comment:Chronic Kidney Disea se: Estimated GFR < 60 mL/min/1.71r6Npalez Kidney Disease: Estimated GFR < 15 mL/min/1.73m2 Glucose 206(H) 60 - 115 mg/dL [facility] Calcium 8.7 8.4 - 10.2 mg/dL [facility] Blood Venous blood specimen / Unknown 03/31/2025 11:41 AM EDT 03/31/2025 11:41 AM EDT Kristi Warren ANP LAB BLOOD ORDERABLES Final Resul t Performing Organization Address [facility] Co de Phone Number [facility] [address] [place] [phone] * Albumin, Random Urine W/Creatinine (03/31/2025 11:34 AM EDT) Creatinine, Urine 85.49 mg/dL [facility] Microalbumin Urine 17.0 mg/L [facility] Microalbum Creatinine Ratio Ur 19.8 <30 ug/mg cr [facility] Comment:Albumin/Creatinine R atio Reference Ranges: Normal: < 30 ug/mg creatinine Microalbuminuria: 30 - 300 ug/mg creatinineClinical Albuminuria: > 300 ug/mg creatinine 03/31/2025 11:3 4 AM EDT 03/31/2025 11:55 AM EDT Kristi Warren ANP LAB URINE ORDERABLES Final Resul t Performing Organization Address [facility] Co de Phone Number [facility] [address] [place] [phone] * (ABNORMAL) POCT HGB A1C (03/13/2025 [...] Media Lot # [id number] Lot# Expiration Date Blood Capillary blood specimen / Unknown 03/13/2025 3:05 PM EDT Kristi Warren ANP POINT OF CARE TEST ENTER/EDIT OR DERABLES Final Result * Colonoscopy (07/26/2010) Colonoscopy Normal Normal Historical Provider HEALTH MAINTENANCE Final Result from Last 3 Months or Most Recently Relevant to Health Maintenance Insurance [facility] [employer] OPTIONS (O D-SNP) [place] [id number] Advance Directives Documents on File Type Date Recorded Patient Imaging Nurse Expl anation Advance Directives and Living Will 12/27/2024 Health Care Proxy 12/26/24 Care Teams Custom Dressmaker Relationship Specialty Start Date End Date Kristi Warren ANP [address] [place] [address] PCP - General Family Medicine 03/24/20 [facility] 12/09/24
--- OUTSIDE RECORDS SUMMARY | 2025-06-11 17:06 | XMS_ITS | Encounter Summary ---
Author Organization [facility], Address [address] [place] [address] Phone Care Team Providers Care Nurse Anesthesia Program Director Name Role Phone Unavailable Primary Care Provider Unavailabl e Encounter Details Date Type Department Care Team (Late st Contact Info) Description 07/30/2024 Documentation Only [facility], - Angel Caicedo [address] [place] [phone] Iona Salas [address] [place] [address] Social History Tobacco Use Types [...]
--- OUTSIDE RECORDS SUMMARY | 2025-06-11 17:06 | XMS_ITS | Encounter Summary ---
Author Organization [employer] Address [address] [facility] 7t [place] [address] Care Team Providers Care Editing Intern Name Role Phone Kristi Warren Primary Care Provider [phone] Reason for Visit * Reason Onset Date Comments ER Follow-up 04/22/2025 fyi 04/22/2025 Encounter Details Date Type Department Care Team (Late st Contact Info) Description 04/22/2025 Telephone [facility] MED[facility]INE [address] [place], [place] [phone] Kristi Warren ANP [address] [place], [place] [phone] ER Follow-up; Social History Tobacco Use Types [...] 2:30pm 04/22/25. Received call back from Ivette Conformal Pad Former to Dr Almazan. Pt had nurse visit last Monday04/18/25 and was instructed to hold metoprolol and furosemide. His next appt is 04/25/25 with CECILY Shirley at [facility], and has Echo scheduled for 05/01/25. [...] office who is requesting office note from [facility] visit on 04/18/25.[facility], only nursing note available for review (copied below). Per note, pt to hold metoprolol and lasix (already being held). Called [facility] and left message for medical reception specialist requesting call back to see if [...] : Date: 04/19/25 Hospital: Urgent [place] Seen for: neck pain Symptomatic No Pt was prescribed baclofen *sick on site visit scheduled for 04/[address] Okeefe has been canceled due to noty being needed. documented in this encounter Plan of Treatment Upcoming Encounters Date Type Department Care Team (Late st Contact Info) Description 06/12/2025 1:00 PM EDT Office Visit [facility] [address] [place], [place] [phone] Kristi Warren ANP [address] [place], [place] [phone] documented as of this encounter Goals Goal [...] documented as of this encounter Care Teams Editing Intern Relationship Specialty Start Date End Date Kristi Warren ANP [address] [place] [address] PCP - General Family Medicine 03/24/20 [facility] Care 12/09/24 documented as of this encounter
--- OUTSIDE RECORDS SUMMARY | 2025-06-11 17:06 | XMS_ITS | Encounter Summary ---
Author Organization [employer] Address [address] [facility] 7t [place] [address] Care Team Providers Care Event Sales Manager Name Role Phone Kristi Warren Primary Care Provider [phone] Reason for Visit * Reason Onset Date Comments Referral 03/29/2023 Encounter Details Date Type Department Care Team ([facility] st Contact Info) Description 03/29/2023 Telephone [facility] MED[facility]INE [address] [place] [address] Kristi Warren ANP [address] [place] [address] Referral Social History Tobacco Use Types Packs/Day [...] referral for Podiatry. Please contact pt at [phone] Maltese Speaker documented in this encounter Plan of Treatment Upcoming Encounters Date Type Department Care Team (Late st Contact Info) Description 06/12/2025 1:00 PM EDT Office Visit [facility] [address] [place] [address] Kristi Warren ANP [address] [place] [address] documented as of this encounter Visit Diagnoses Not on filedocumented in this encounter Care Teams Event Sales Manager Relationship Specialty Start Date End Date Kristi Warren ANP [address] [place] [address] PCP - General Family Medicine 03/24/20 [facility] 08/09/24 12/19/24 [facility] 12/09/24 documented as of this encounter
--- OUTSIDE RECORDS SUMMARY | 2025-06-11 17:06 | XMS_ITS | Encounter Summary ---
Author Organization [employer] Address [address] [facility] 7t [place] [address] Care Team Providers Care Field Specialist Name Role Phone Kristi Warren Primary Care Provider [phone] Reason for Visit * Reason Onset Date Comments Nurse Triage 04/06/2023 Encounter Details Date Type Department Care Team ([facility] st Contact Info) Description 04/06/2023 Telephone [facility] MED[facility]INE [address] [place] [address] Kristi Warren ANP [address] [place] [address] Nurse Triage Social History Tobacco Use Types [...] Miscellaneous Notes * Telephone Encounter - Alana Danielnez - 04/06/2023 2:10 PM EDT Symptoms: Loss of Appetite, Depression Outcome: Schedule an urgent appointment (within 4 hours) or talk to a nurse or provider soon Reason: Getting worse The caller accepted this outcome Patient speaks azerbaijani documented in this encounter Plan of Treatment Upcoming Encounters Date Type Department Care Team (Late st Contact Info) Description 06/12/2025 1:00 PM EDT Office Visit [facility] [address] [place] [address] Kristi Warren ANP [address] [place] [address] documented as of this encounter Visit Diagnoses Not on filedocumented in this encounter Care Teams Field Specialist Relationship Specialty Start Date End Date Kristi Warren ANP [address] [place] [address] PCP - General Family Medicine 03/24/20 [facility] 08/09/24 12/19/24 [facility] 12/09/24 documented as of this encounter
--- OUTSIDE RECORDS SUMMARY | 2025-06-11 17:06 | XMS_ITS | Encounter Summary ---
Author Organization [employer] Address [address] [facility] 7t [place] [address] Care Team Providers Care Patent Clerk Name Role Phone Kristi Warren Primary Care Provider [phone] Reason for Visit * Reason Onset Date Comments Durable Medical Equipment 07/27/2023 Encounter Details Date Type Department Care Team (Late st Contact Info) Description 07/27/[address] [facility] MEDICINE [address] [place] [address] Kristi Warren ANP [address] [place] [address] Durable Medical Equipment Social History Tobacco Use [...] 07/27/2023 3:44 PM EDT Tc from [facility] requesting DME for pt on glucometer kit. Any question contact [facility] documented in this encounter Plan of Treatment Upcoming Encounters Date Type Department Care Team (Late st Contact Info) Description 06/12/2025 1:00 PM EDT Office Visit [facility] MEDICINE [address] [place] [address] Kristi Warren ANP [address] [place] [address] documented as of this encounter Visit Diagnoses Not on filedocumented in this encounter Care Teams Patent Clerk Relationship Specialty Start Date End Date Kristi Warren ANP [address] [place] [address] PCP - General Family Medicine 03/24/20 [facility] 08/09/24 12/19/24 [facility] 12/09/24 documented as of this encounter
--- OUTSIDE RECORDS SUMMARY | 2025-06-11 17:06 | XMS_ITS | Encounter Summary ---
Author Organization [facility], Address [address] [place] [address] Phone Care Team Providers Care Reporting Specialist Name Role Phone Unavailable Primary Care Provider Unavailabl e Encounter Details Date Type Department Care Team (Late st Contact Info) Description 01/10/2024 Documentation Only [facility], [address] [place] [address] Iona Salas [address] [place] [address] Social History Tobacco Use Types [...]
--- OUTSIDE RECORDS SUMMARY | 2025-06-11 17:06 | XMS_ITS | Encounter Summary ---
Author Organization [facility], Address [address] [place] [address] Phone Care Team Providers Care Accounting Professional Name Role Phone Unavailable Primary Care Provider Unavailabl e Encounter Details Date Type Department Care Team (Late st Contact Info) Description 07/30/2024 Documentation Only [facility], - Angel Caicedo [address] [place] [phone] Iona Salas [address] [place] [address] Social History Tobacco Use Types [...]
--- OUTSIDE RECORDS SUMMARY | 2025-06-11 17:06 | XMS_ITS | Encounter Summary ---
Author Organization [employer] Address [address] [facility] [address] 7t [place] [address] Care Team Providers Care Dye Beck Reel Operator Name Role Phone Kristi Warren Primary Care Provider [phone] Encounter Details Date Type Department Care Team (Late st Contact Info) Description 08/12/2024 Telephone [facility] MEDICINE [address] [place], [place] [phone] Kristi Warren ANP [address] [place] [address] Social History Tobacco Use Types Packs/Day Years [...] Description 06/12/2025 1:00 PM EDT Office Visit [facility] MED[facility]INE [address] [place] [address] Kristi Warren ANP [address] [place] [address] documented as of this encounter Goals Goal [...] documented as of this encounter Care Teams Dye Beck Reel Operator Relationship Specialty Start Date End Date Kristi Warren ANP [address] [place] [address] PCP - General Family Medicine 03/24/20 [facility] 08/09/24 12/19/24 [facility] 12/09/24 documented as of this encounter
--- OUTSIDE RECORDS SUMMARY | 2025-06-11 17:06 | XMS_ITS | Encounter Summary ---
Author Organization [employer] Address [address] [facility] 7t [place] [address] Care Team Providers Care Marketing Research Intern Name Role Phone Kristi Warren Primary Care Provider [phone] Reason for Visit * Reason Onset Date Comments Durable Medical Equipment 04/20/2023 Encounter Details Date Type Department Care Team (Late st Contact Info) Description 04/20/2023 Telephone [facility] [address] [place] [address] Kristi Warren ANP [address] [place] [address] Durable Medical Equipment Social History Tobacco Use [...] Description 06/12/2025 1:00 PM EDT Office Visit [facility] [address] [place] [address] Kristi Warren ANP [address] [place], [place] [phone] documented as of this encounter Visit Diagnoses Not on filedocumented in this encounter Care Teams Marketing Research Intern Relationship Specialty Start Date End Date Kristi Warren ANP [address] [place], [place] [phone] PCP - General Family Medicine 03/24/20 [facility] 08/09/24 12/19/24 [facility] 12/09/24 documented as of this encounter
--- OUTSIDE RECORDS SUMMARY | 2025-06-11 17:06 | XMS_ITS | Encounter Summary ---
Author Organization [facility], Address [address] [place] [address] Phone Care Team Providers Care Stone Circular Sawyer Name Role Phone Unavailable Primary Care Provider Unavailabl e Encounter Details Date Type Department Care Team (Late st Contact Info) Description 07/30/2024 Documentation Only [facility], - Angel Caicedo [address] [place] [phone] Iona Salas [address] [place] [address] Social History Tobacco Use Types [...]
--- OUTSIDE RECORDS SUMMARY | 2025-06-11 17:06 | XMS_ITS | Encounter Summary ---
Author Organization [employer] Address [address] [facility] 7t [place] [address] Care Team Providers Care Linoleum Mechanic Name Role Phone Kristi Warren Primary Care Provider [phone] Reason for Visit * Reason Onset Date Comments Referral 11/17/2022 Encounter Details Date Type Department Care Team ([facility] st Contact Info) Description 11/17/2022 Telephone [facility] MEDICINE [address] [place] [address] Kristi Warren ANP [address] [place] [address] Referral Social History Tobacco Use Types Packs/Day [...] from pt requesting a referral for a heel buffer to have toe nails cut Please contact pt at [phone] documented in this encounter Plan of Treatment Upcoming Encounters Date Type Department Care Team (Late st Contact Info) Description 06/12/2025 1:00 PM EDT Office Visit [facility] MEDICINE [address] [place] [address] Kristi Warren ANP [address] [place] [address] documented as of this encounter Visit Diagnoses Not on filedocumented in this encounter Care Teams Linoleum Mechanic Relationship Specialty Start Date End Date Kristi Warren ANP [address] [place] [address] PCP - General Family Medicine 03/24/20 [facility] 08/09/24 12/19/24 [facility] 12/09/24 documented as of this encounter
--- OUTSIDE RECORDS SUMMARY | 2025-06-11 17:06 | XMS_ITS | Encounter Summary ---
Author Organization [employer] Address [address] [facility] 7t [place] [address] Care Team Providers Care Diplomatic Interpreter Name Role Phone Kristi Warren Primary Care Provider [phone] Reason for Visit * Reason Onset Date Comments Nurse Triage 04/18/2023 Encounter Details Date Type Department Care Team ([facility] st Contact Info) Description 04/18/2023 Telephone [facility] MEDICINE [address] [place] [address] Kristi Warren ANP [address] [place] [address] Nurse Triage Social History Tobacco Use Types [...] 04/18/2023 3:57 PM EDT Called pt. Via [employer] emt intermediate [id number] Nadja. Pt. States that he had an appt. With Provider Kelvin today and he was feeling dizzy after his appt. While driving and had to shoe puller. Pt. States hehad some blood work [...] accepted this outcome Please contact pt at [phone] (Pashto speaker) documented in this encounter Plan of Treatment Upcoming Encounters Date Type Department Care Team (Late st Contact Info) Description 06/12/2025 1:00 PM EDT Office Visit [facility] MEDICINE [address] [place] [address] Kristi Warren ANP [address] [place] [address] documented as of this encounter Visit Diagnoses Not on filedocumented in this encounter Care Teams Diplomatic Interpreter Relationship Specialty Start Date End Date Kristi Warren ANP [address] [place] [address] PCP - General Family Medicine 03/24/20 [facility] 08/09/24 12/19/24 [facility] 12/09/24 documented as of this encounter
--- OUTSIDE RECORDS SUMMARY | 2025-06-11 17:06 | XMS_ITS | Encounter Summary ---
Author Organization [employer] Address [address] [facility] 7t [place] [address] Care Team Providers Care Light Bulb Assembler Name Role Phone Kristi Warren Primary Care Provider [phone] Reason for Visit * Reason Onset Date Comments Med Refill 04/12/2023 Encounter Details Date Type Department Care Team ([facility] st Contact Info) Description 04/12/2023 Telephone [facility] MEDICINE [address] [place] [address] Kristi Warren ANP [address] [place] [address] Med Refill Social History Tobacco Use Types [...] Description 06/12/2025 1:00 PM EDT Office Visit [facility] MEDICINE [address] [place] [address] Kristi Warren ANP [address] [place] [address] documented as of this encounter Visit Diagnoses Not on filedocumented in this encounter Care Teams Light Bulb Assembler Relationship Specialty Start Date End Date Kristi Warren ANP [address] [place] [address] PCP - General Family Medicine 03/24/20 [facility] 08/09/24 12/19/24 [facility] 12/09/24 documented as of this encounter
--- OUTSIDE RECORDS SUMMARY | 2025-06-11 17:06 | XMS_ITS | Clinical Summary ---
Author Organization [facility], Address [address] [place] [address] [place] [address] Phone Care Team Providers Care Electrical Designer Drafter Name Role Phone Unavailable Primary Care Provider [...] tablet 11 3 Active Vitamin D, Ergocalciferol, 32214 units capsule Use 500 mcg in the [...] Hypercholesterolemia 09/24/2019 021 Hypertensive heart disease w [facility] congestive heart failure 09/24/2019 01/24/2022 Microalbuminuria [...] PM EST) Hemoglobin A1C 6.0(H) (4.0-5.6) % [facility] Comment: MONITORING: In known diabetic patients, hemoglobin A1c targets should be discussed with health care provider. DIAGNOSTIC USE: The [place] Diabetes Association (ADA) and the World Health [...] Supplement 1 Testing performed or reported by [facility], a Service of [facility], [address] [place] [address] Elvira Lopez MD, Traveling Phlebotomist [facility]# [id number] Blood specimen (specimen) Venous blood / Unknown 10/25/2022 1:48 PM EST 10/25/2022 1:54 PM EST us Jt [facility] BLOOD ORDERABLES Final Re sult [facility] from Last 3 Months or Most Recently Relevant to Health Maintenance Insurance [facility] One Care Dual SNP ([id number]) [place] [id number] [place] [address] , [place] [address] [place] [address]
--- OUTSIDE RECORDS SUMMARY | 2025-06-11 17:06 | XMS_ITS | Patient Health Record ---
Author [facility] Address [address] [place] [place] [address] Care Team Providers Care Baseball Inspector Name Role Phone Kristi Warren Primary Care Provider Fan Simons Unavailable [phone] Allergies No Known Allergies Reason For Referral [...] Problem Acquired hammer toe of right foot (71714375633350 05) Other hammer toe(s) (acquired), right foot (M20.41) Active confirmed Problem Type 2 diabetes mellitus with peripheral angiopathy (381769442) Type 2 diabetes mellitus with diabetic peripheral angiopathy without gangrene (E11.51) Active confirmed Problem Acquired hammer toe of left foot (30006657344237 03) Other hammer toe(s) (acquired), left foot (M20.42) Active confirmed Plan Of Treatment Pending Test Test Name Order Date [id number] NAIL, 6 OR MORE 09/14/2020 95660-SANHWOU NAIL, 6 OR MORE 12/14/2020 30816-FDBTFKU NAIL, 6 OR MORE 02/22/2021 51297-MPRPDCS NAIL, 6 OR MORE 04/29/2021 27099-BTWDTMV NAIL, 6 OR MORE 08/11/2021 65354-AAPGBUV NAIL, 6 OR MORE 10/20/2021 00872-[id number] NAIL, 6 OR MORE 12/30/2021 09734-OBMNPSD NAIL, 6 OR MORE 03/23/2022 22954-MFHDGMV NAIL, 6 OR MORE 06/06/2022 52022-YOCL SKIN LESIONS, OVER 4 06/06/20 22 56335-AUPF SKIN LESIONS, OVER 4 12/31/19 22 99348-NWHL SKIN LESIONS, OVER 4 03/23/20 22 14649-HUGQ SKIN LESIONS, OVER 4 10/20/19 22 54568-CFCO SKIN LESIONS, OVER 4 08/11/20 21 69425-PJDT SKIN LESIONS, OVER 4 04/29/20 21 22671-XEGI SKIN LESIONS, OVER 4 02/23/20 21 32272-XDNE SKIN LESIONS, OVER 4 12/15/19 21 01552-AGJJ SKIN LESIONS, OVER 4 09/14/20 20 Insurance Providers Payer Name Payer Address Payer Phone Subscriber Number Group Number Insured Name Patient Relationship to Insured Coverage Start Date Coverage End Date [facility] [employer] Claims [address] [place] [phone] [id number] Albert Baeza Self - patient is the insured Medical (General) History Medical History History ICD Code Diabetic Surgical History Surgery Date(Month/Year) back surgery Hospitalization History Reason Date(Month/Year) [facility]- swollen legs
--- OUTSIDE RECORDS SUMMARY | 2025-06-11 17:06 | XMS_ITS | Encounter Summary ---
Author Organization [facility], Address [address] [place] [address] Phone Care Team Providers Care Safety Spec Name Role Phone Unavailable Primary Care Provider Unavailabl e Reason for Visit * Reason Comments Med Refill Encounter Details Date Type Department Care Team (Late st Contact Info) Description 09/15/2023 Refill [facility], [address] [place] [address] Jt Ochoa PA [address] [place] [address] Social History Tobacco Use Types [...]
--- OUTSIDE RECORDS SUMMARY | 2025-06-11 17:06 | XMS_ITS | Encounter Summary ---
Author Organization [employer] Address [address] [facility] 7t [place] [address] Care Team Providers Care Technical Engineer Name Role Phone Kristi Warren Primary Care Provider [phone] Encounter Details Date Type Department Care Team ([facility] Contact Info) Description 11/24/2022 Orders Only [facility] [address] [place], [place] [phone] Amalia Pierre LPN Social History Tobacco Use [...] Description 06/12/2025 1:00 PM EDT Office Visit [facility] MEDICINE [address] [place] [address] Kristi Warren ANP [address] [place], [place] [phone] documented as of this encounter Visit Diagnoses Not on filedocumented in this encounter Care Teams Technical Engineer Relationship Specialty Start Date End Date Kristi Warren ANP [address] [place] [address] PCP - General Family Medicine 03/24/20 [facility] 08/09/24 12/19/24 [facility] 12/09/24 documented as of this encounter
--- OUTSIDE RECORDS SUMMARY | 2025-06-11 17:06 | XMS_ITS | Encounter Summary ---
Author Organization [employer] Address [address] 7t [place] [address] Care Team Providers Care Simulation Tech Name Role Phone Kristi Warren Primary Care Provider [phone] Encounter Details Date Type Department Care Team (Late st Contact Info) Description 08/15/2024 Telephone [facility] MEDICINE [address] [place], [place] [phone] Kristi Warren ANP [address] [place] [address] Social History Tobacco Use Types Packs/Day Years [...] 11:11 AM EST TC from Viktoria William LEADERSHIP COACH of pt stated that pt doesn't have no more meds due to pt is taking doseof trazodone of 7 days in 1 night also taking a lot of gabapentin in a Day and regular medication pt is crushing them and put in on sink is no taking none of his medication. Pt used [facility] and he is not due until August 30. [facility] requesting a call from PCP to discuss pt medication. PCP DR. Warren documented in this encounter Plan of Treatment Upcoming Encounters Date Type Department Care Team (Late st Contact Info) Description 06/12/2025 1:00 PM EDT Office Visit [facility] MEDICINE [address] [place] [address] Kristi Warren ANP [address] [place] [address] documented as of this encounter Goals Goal [...] documented as of this encounter Care Teams Simulation Tech Relationship Specialty Start Date End Date Kristi Warren ANP [address] [place] [address] PCP - General Family Medicine 03/24/20 [facility] 08/09/24 12/19/24 [facility] 12/09/24 documented as of this encounter
--- OUTSIDE RECORDS SUMMARY | 2025-06-11 17:06 | XMS_ITS | Encounter Summary ---
Author Organization [employer] [facility] Address [address] [facility] 7t [place] [address] Care Team Providers Care Nailer Machine Name Role Phone Kristi Warren Primary Care Provider [phone] Encounter Details Date Type Department Care Team (Late Contact Info) Description 10/19/2022 Orders Only [facility] MEDICINE [address] [place] [address] [phone] Mona Porras LPN Social History Tobacco Use [...] Description 06/12/2025 1:00 PM EDT Office Visit [facility] [address] [place] [address] Kristi Warren ANP [address] [place], [place] [phone] documented as of this encounter Procedures Procedure Name Priority Date/Time Associated Diagnosis Comments XR FOOT 1-2 VIEWS RIGHT Routine 11/07/2022 11:42 AM EST documented in this encounter Results * XR Foot 1-2 Views Right (11/07/2022 11:42 AM EST) Anatomical Region Laterality Modality Lower Extremities, Foot Right Radiogra phic Imaging 11/07/2022 11:4 2 AM EST Narrative 11/09/2022 8:38 PM EST [address] [address] XRay Report Signed Patient: Albert Baeza MR#: [id number] : 1950 Acct:[id number] Age/Sex: 72 / M ADM Date: 11/07/22 Loc: HO.XRAY Attending Dr: Ophelia Hubbard NP Ordering Physician: OPHELIA HUBBARD NP Date of Service: 11/07/22 Procedure(s): XR foot RT 2V Accession Number(s): [id number] cc: OPHELIA HUBBARD NP EXAMINATION: XR FOOT, [...] MD in OV> 11/09/222034 DD/ 1142 TD/TT: Operations And Maintenance Specialist: ALBERT Procedure Note Donotuseinterpreter, Image - 11/09/[address] [address] XRay Report Signed Patient: Albert BaezaMR#: [id number] : 1950Acct:[id number] Age/Sex: 72 / MADM Date: 11/07/22 Loc: HOMIKE Attending Dr: Ophelia Hubbard NP Ordering Physician: OPHELIA HUBBARD NP Date of Service: 11/07/22 Procedure(s): XR foot RT 2V Accession Number(s): [id number] cc: OPHELIA HUBBARD NP EXAMINATION: XR FOOT, [...] MD in OV> 11/09/222034 DD/ 1142 TD/TT: Operations And Maintenance Specialist: ALBERT Auth[place]amille Provider Result Type Result Stat [employer] External Provider IMG XR PROCEDURES Edited Result - Final documented in this encounter Visit Diagnoses Not on filedocumented in this encounter Care Teams Nailer Machine Relationship Specialty Start Date End Date Kristi Warren ANP [address] [place] [address] PCP - General Family Medicine 03/24/20 [facility] 08/09/24 12/19/24 [facility] 12/09/24 documented as of this encounter
--- OUTSIDE RECORDS SUMMARY | 2025-06-11 17:07 | XMS_ITS | Encounter Summary ---
Author Organization [employer] Address [address] [facility] 7t [place] [address] Care Team Providers Care Viticulturist Name Role Phone Kristi Warren Primary Care Provider [phone] Reason for Visit * Reason Onset Date Comments Medication Question 07/15/2024 Encounter Details Date Type Department Care Team ([facility] st Contact Info) Description 07/15/2024 Telephone [facility] MEDICINE [address] [place] [address] Kristi Warren ANP 230 [place] [address] Medication Question Social History Tobacco Use Types [...] medications. The pt was recently discharged from [facility] after being in the hospital for a pneumothorax. Viktoria is concerned with the medications that the pt was discharged with and is apprehensive in regards to giving them to the pt. RN spoke with OMERO Song, who is in agreement that the pt can be scheduled for a [facility] appt. This will be forwarded to [facility] for scheduling. * Telephone Encounter - Trace Castaneda - 07/15/2024 8:46 AM EDT Tc from Viktoria from [facility] requesting a call back to compare medications and to see if the provider would like the patient to continue the medication documented in this encounter Plan of Treatment Upcoming Encounters Date Type Department Care Team (Late st Contact Info) Description 06/12/2025 1:00 PM EDT Office Visit [facility] MEDICINE [address] [place] [address] Kristi Warren ANP [address] [place] [address] documented as of this encounter Goals Goal [...] documented as of this encounter Care Teams Viticulturist Relationship Specialty Start Date End Date Kristi Warren ANP [address] [place] [address] PCP - General Family Medicine 03/24/20 [facility] 08/09/24 12/19/24 [facility] 12/09/24 documented as of this encounter
--- OUTSIDE RECORDS SUMMARY | 2025-06-11 17:07 | XMS_ITS | Encounter Summary ---
Author Organization [facility], Address [address] [place] [address] Phone Care Team Providers Care Research And Insights Executive Name Role Phone Unavailable Primary Care Provider Unavailabl e Reason for Visit * Reason Comments Med Refill Encounter Details Date Type Department Care Team (Late st Contact Info) Description 10/20/2024 Refill [facility], [address] [address] Jt Ochoa PA [address] [place] [address] Social History Tobacco Use Types [...]
--- OUTSIDE RECORDS SUMMARY | 2025-06-11 17:07 | XMS_ITS | Encounter Summary ---
Author Organization [employer] Address [address] [facility] 7t [place] [address] Care Team Providers Care Newspaper Columnist Name Role Phone Kristi Warren Primary Care Provider [phone] Reason for Visit * Reason Onset Date Comments Prior Authorization 06/05/2025 Encounter Details Date Type Department Care Team ([facility] st Contact Info) Description 06/05/2025 Telephone [facility] MEDICINE [address] [place], [place] [phone] Kristi Warren ANP [address] [place] [address] Prior Authorization Social History Tobacco Use Types Packs/Day Years [...] * Telephone Encounter - BATSHEVA Pereyra - 06/10/2025 5:24 PM EDT Thanks - by that I mean, yes please pursue CGM thanks * Telephone Encounter - Marianela Dupree RN - 06/05/2025 11:00 AM EDT Received fax for CGM Freestyle Sherley 2 plus sensors. Pt not on insulin, last A1C 6.5%. Insurance typically only covers CGM if A1C is > 7.0% and pt not on insulin. Will send message to PCP to advise. documented in this encounter Plan of Treatment Upcoming Encounters Date Type Department Care Team (Late st Contact Info) Description 06/12/2025 1:00 PM EDT Office Visit [facility] MEDICINE [address] [place] [address] Kristi Warren ANP [address] [place] [address] documented as of this encounter Goals Goal [...] documented as of this encounter Care Teams Newspaper Columnist Relationship Specialty Start Date End Date Kristi Warren ANP [address] [place] [address] PCP - General Family Medicine 03/24/20 [facility] 12/09/24 documented as of this encounter
--- OUTSIDE RECORDS SUMMARY | 2025-06-11 17:07 | XMS_ITS | Encounter Summary ---
Author Organization [facility] [place], Address [address] [place] [address] Phone Care Team Providers Care Plastics Fabricator And Assembler Name Role Phone Unavailable Primary Care Provider Unavailabl e Encounter Details Date Type Department Care Team (Late st Contact Info) Description 01/21/2022 Documentation Only [facility], [address] [place] [address] Jt Ochoa PA [address] [place] [address] Social History Tobacco Use Types [...]
--- OUTSIDE RECORDS SUMMARY | 2025-06-11 17:07 | XMS_ITS | Encounter Summary ---
Author Organization [employer] Address [address] [facility] 7t [place] [address] Care Team Providers Care Guide Plant Name Role Phone Kristi Warren Primary Care Provider [phone] Reason for Visit * Reason Onset Date Comments Durable Medical Equipment 06/11/2025 Encounter Details Date Type Department Care Team (Late st Contact Info) Description 06/11/2025 Telephone [facility] MEDICINE [address] [place] [address] Kristi Warren ANP [address] [place] [address] Durable Medical Equipment Social History Tobacco Use [...] encounter Miscellaneous Notes * Telephone Encounter - Kacey Garcia - 06/11/2025 3:27 PM EDT Received fax from [facility] requesting documentation to support referral they received for a semi electric hospital bed. Form sent to pcp. Please see page 4 of form scanned into media as DME Hospital Bed- PENDING . documented in this encounter Plan of Treatment Upcoming Encounters Date Type Department Care Team (Late st Contact Info) Description 06/12/2025 1:00 PM EDT Office Visit [facility] MEDICINE [address] [place] [address] Kristi Warren ANP [address] [place] [address] documented as of this encounter Goals Goal [...] documented as of this encounter Care Teams Guide Plant Relationship Specialty Start Date End Date Kristi Warren ANP [address] [place] [address] PCP - General Family Medicine 03/24/20 [facility] 12/09/24 documented as of this encounter
--- OUTSIDE RECORDS SUMMARY | 2025-06-11 17:07 | XMS_ITS | Encounter Summary ---
Author Organization [facility], Address [address] [place] [address] Phone Care Team Providers Care Design Assembler Name Role Phone Unavailable Primary Care Provider Unavailabl e Encounter Details Date Type Department Care Team (Late st Contact Info) Description 10/19/2022 Documentation Only [facility], [address] [place] [address] Jt Ochoa PA [address] [place] [address] Social History Tobacco Use Types [...]
--- OUTSIDE RECORDS SUMMARY | 2025-06-11 17:07 | XMS_ITS | Encounter Summary ---
Author Organization [facility] [place], Address [address] [place] [address] Phone Care Team Providers Care Marine Equipment Engineer Name Role Phone Unavailable Primary Care Provider Unavailabl e Reason for Visit * Reason Comments Med Refill Encounter Details Date Type Department Care Team (Late st Contact Info) Description 10/15/2024 Refill [facility], [address] [place] [address] Jt Ochoa PA [address] [place] [address] Social History Tobacco Use Types [...]
--- OUTSIDE RECORDS SUMMARY | 2025-06-11 17:07 | XMS_ITS | Encounter Summary ---
Author Organization [employer] Address [address] [facility] [address] [facility] [address] 7t [place] [address] Care Team Providers Care Spectrographer Name Role Phone Kristi Warren Primary Care Provider [phone] Encounter Details Date Type Department Care Team (Late st Contact Info) Description 05/23/2025 Orders Only [facility] MEDICINE [address] [place], [place] [phone] Kristi Warren ANP [address] [place] [address] Social History Tobacco Use Types Packs/Day Years [...] Description 06/12/2025 1:00 PM EDT Office Visit [facility] MEDICINE [address] [place] [address] Kristi Warren ANP [address] [place] [address] documented as of this encounter Goals Goal [...] documented as of this encounter Care Teams Spectrographer Relationship Specialty Start Date End Date Kristi Warren ANP [address] [place] [address] PCP - General Family Medicine 03/24/20 [facility] 12/09/24 documented as of this encounter
--- OUTSIDE RECORDS SUMMARY | 2025-06-11 17:07 | XMS_ITS | Encounter Summary ---
Author Organization [facility] [place], Address [address] [place] [address] Phone Care Team Providers Care Election Supervisor Name Role Phone Unavailable Primary Care Provider Unavailabl e Encounter Details Date Type Department Care Team (Late st Contact Info) Description 10/07/2022 Orders Only [facility], [address] [place] [address] Jt Ochoa PA [address] [place] [address] Stage 3a chronic kidney disease [...] 1:48 PM EST) Iron 70 (45-160) MCG/DL [facility] UIBC 153 (110-370) MCG/DL [facility] TIBC 223 (155-530) MCG/DL [facility] Iron Saturation (TSat) 31 (20-55) % [facility] Comment: Testing performed or reported by [facility], a Service of [facility], [address] [place] [address] Elvira Lopez MD, Answerer [facility]# [id number] Blood specimen (specimen) Venous blood / Unknown 10/25/2022 1:48 PM EST 10/25/2022 1:54 PM EST Jt [facility] BLOOD ORDERABLES Final Re sult [facility] * (ABNORMAL) Hemoglobin A1c (10/25/2022 1:48 PM EST) Hemoglobin A1C 6.0(H) (4.0-5.6) % [facility] Comment: MONITORING: In known diabetic patients, hemoglobin A1c targets should be discussed with health care provider. DIAGNOSTIC USE: The [place] Diabetes Association (ADA) and the World Health [...] Supplement 1 Testing performed or reported by [facility], a Service of [facility], [address] [place] [address] Elvira Lopez MD, Answerer CLIA# [id number] Blood specimen (specimen) Venous blood / Unknown 10/25/2022 1:48 PM EST 10/25/2022 1:54 PM EST Jt [facility] BLOOD ORDERABLES Final Re sult Performing Organization Address [facility] de Phone Number [facility] * (ABNORMAL) PTH, intact (10/25/2022 1:48 PM EST) PTH, Intact 105(H) (15-65) PG/ML [facility] Comment: Testing performed or reported by [facility], a Service of [facility], [address] [place] [address] Elvira Lopez MD, Answerer CLIA# [id number] Blood specimen (specimen) Venous blood / Unknown 10/25/2022 1:48 PM EST 10/25/2022 1:54 PM EST Jt [facility] BLOOD ORDERABLES Final Re sult Performing Organization Address [facility] Co de Phone Number [facility] * Urine Protein / creatinine ratio (10/25/2022 1:48 PM EST) [facility] Protein/Creatin e Ratio 0.14 (0-0.2) [facility] Protein, Urine 13 MG/DL [facility] Creatinine, Urine 96.2 MG/DL [facility] Comment: Testing performed or reported by [facility], a Service of [facility], [address] [place] [address] Elvira Lopez MD, Answerer [facility]# [id number] Urine specimen (specimen) Urine specimen obtained by clean catch procedure / Unknown 10/25/2022 1:48 PM EST 10/25/2022 1:54 PM EST Jt [facility] URINE ORDERABLES Final Re sult [facility] * (ABNORMAL) Urinalysis, Complete w/reflex to Culture (10/25/2022 1:48 PM EST) [facility] Appearance LIGHT YELLOW [facility] Comment:CLEAR Specific [place] 1.014 (1.002-1. 030) [facility] pH Urine 6.0 (5.0-8.0) [facility] Albumin, Urine TRACE(A) (NEG) [facility] Glucose, Ur NEGATIVE (NEG) [facility] Ketones, Urine NEGATIVE (NEG) [facility] Bilirubin Urine NEGATIVE (NEG) [facility] Hemoglobin Presence in Urine NEGATIVE (NEG) [facility] Nitrite, Urine NEGATIVE (NEG) [facility] Leukocyte Esterase Urine NEGATIVE (NEG) [facility] Urobilinogen Urine NORMAL (NORM) MG/DL [facility] WBC, Urine 1 (0-5) /HPF [facility] RBC, Urine 1 (0-3) /HPF [facility] Mucus, Urine SLIGHT /LPF [facility] Hyaline Casts, Urine 4(H) (0-2) LPF [facility] Clarity CLEAR (CLEAR) [facility] CULTURE INDICATED CULTURE NOT INDICATED [facility] Comment: Testing performed or reported by [facility], a Service of [facility], [address] [place] [address] Elvira Lopez MD, Answerer [facility]# [id number] Urine specimen (specimen) Urine specimen obtained by clean catch procedure / Unknown 10/25/2022 1:48 PM EST 10/25/2022 1:54 PM EST us Jt [facility] URINE ORDERABLES Final Re sult [facility] * (ABNORMAL) CBC and differential (10/25/2022 1:48 PM EST) White Blood Cells 10.3 (4.0-11.0 ) K/MM3 [facility] RBC 4.06(L) (4.70-6.1 0) M/MM3 [facility] Hgb 13.7 (13.7-17. 1) GM/DL [facility] Hematocrit 42.3 (40.5-50. 0) % [facility] MCV 104.2(H) (80.0-94. 0) FL [facility] MCH 33.7 (27.0-34. 0) PG [facility] MCHC 32.4(L) (33.0-37. 0) g/dL [facility] Platelets 232 (150-460) K/MM3 [facility] RDW-SD 50.7(H) (<47.0) FL [facility] MPV 9.8 (9.4-12.4 ) [place] [facility] nRBC Count 0.0 #/100 WBC'S [facility] NRBC Absolute 0.0 K/MM3 [facility] Neutrophils Abs Auto 6.6 (1.3-7.0) K/MM3 [facility] Lymphocytes Relative 2.6 (0.8-3.1) K/MM3 [facility] Monocytes 0.7 (0.4-1.3) K/MM3 [facility] Eosinophils Relative 0.2 (0.0-0.4) K/MM3 [facility] Basophil ABS 0.1 (0.0-0.1) K/MM3 [facility] Granulocytes Absolute 0.1 K/MM3 [facility] Neutrophils % Auto 64.3 (44-76) % [facility] Lymphs 25.4 (15-43) % [facility] Monocytes Absolute 7.0 (4.5-10.5 ) % [facility] Eosinophils 2.3 (0-6) % [facility] Basophils Relative 0.5 (0-2) % [facility] Immature Granulocytes 0.5 % [facility] Comment: Testing performed or reported by [facility], a Service of [address] [address] Elvira Lopez MD, Answerer CLIA# [id number] Blood specimen (specimen) Venous blood / Unknown 10/25/2022 1:48 PM EST 10/25/2022 1:54 PM EST Jt [facility] BLOOD ORDERABLES Final Re sult Performing Organization Address City/[facility] Co de Phone Number [facility] * (ABNORMAL) Renal function panel (10/25/2022 1:48 PM EST) Pathologist [facility] Glucose 116(H) (70-99) MG/DL [facility] BUN 25(H) (8-23) MG/DL [facility] Creatinine 1.7(H) (0.7-1.2) MG/DL [facility] Sodium 139 (133-145) MMOL/L [facility] Potassium 4.5 (3.6-5.2) MMOL/L [facility] Chloride 100 (98-107) MMOL/L [facility] Bicarbonate (CO2) 33(H) (22-29) MMOL/L [facility] Anion Gap 6 (4-17) [facility] Albumin 4.2 (3.4-4.8) GM/DL [facility] Calcium 9.5 (8.6-10.5) MG/DL [facility] Phosphorus, Serum 3.8 (2.5-4.5) MG/DL [facility] Est GFR Non 44 ML/MIN/1.7 3 M2 [facility] Comment: Creatinine based estimated glomerular filtration (eGFR) in adults is calculated using the National Kidney Foundation recommended 2020 CKD-EPI equation. Estimates GFR from serum creatinine, age and sex. Testing performed or reported by [facility], a Service of [address] [address] Elvira Lopez MD, Answerer CLIA# [id number] Blood specimen (specimen) Venous blood / Unknown 10/25/2022 1:48 PM EST 10/25/2022 1:54 PM EST Jt [facility] BLOOD ORDERABLES Final Re sult Performing Organization Address [facility] Co de Phone Number [facility] documented in this encounter Visit Diagnoses Diagnosis Stage 3a chronic kidney disease (HCC) documented in this encounter
== END 2025-06-11 15:10 | disposition home or self-care (01) ==
LOC: HO.PMC 14:51
PROVIDERS: Visit Provider Anesthesiology
DX: E11.42 Type 2 diabetes mellitus with diabetic polyneuropathy (principal); M47.812 Spondylosis without myelopathy or radiculopathy, cervical region; M62.838 Other muscle spasm; M48.02 Spinal stenosis, cervical region
CPT/HCPCS: 99213

== ENCOUNTER → 2025-06-11 14:50 | Outpatient (BNVA) | payer OTHER, SELFPAY | PROVIDERS: Visit Provider Anesthesiology | DX: G56.02 Carpal tunnel syndrome, left upper limb (principal); G56.01 Carpal tunnel syndrome, right upper limb; M19.042 Primary osteoarthritis, left hand; M19.041 Primary osteoarthritis, right hand; E11.42 Type 2 diabetes mellitus with diabetic polyneuropathy; M47.812 Spondylosis without myelopathy or radiculopathy, cervical region; M62.838 Other muscle spasm; M48.02 Spinal stenosis, cervical region | CPT/HCPCS: 99212 ==

== ENCOUNTER 2025-06-30 16:23 | Outpatient (REF) | payer OTHER, SELFPAY ==
--- NOTE | ~2025-06-30 | MR_ITS ---
EXAMINATION: MR CERVICAL SPINE WITHOUT CONTRAST CLINICAL INFORMATION: M54.12. Radiculopathy, cervical region. COMPARISON: Correlated to CT dated July 21, 2024. TECHNIQUE: MRI of the cervical spine was obtained using routine sequences without contrast. FINDINGS: Craniocervical junction is intact. Normal position of the cerebellar tonsils. No bone marrow STIR signal abnormality. Marginal osteophyte formation and decreased intervertebral disc height and signal C5-6 and to a lesser extent C6-7. Buckling deformity in the dorsal aspect of the thecal sac at C3-4, secondary to hypertrophy of the ligamentum flavum. 1 mm anterolisthesis C3-4 and C7-T1. There is a 3.4 mm thickened posterior longitudinal ligament, mostly central, extending from C2-3 to C7. C2-3: Central disc osteophyte complex formation and hypertrophy of the posterior longitudinal ligament abutting the cord with CSF effacement of the thecal sac and the ventral aspect. No cord signal abnormality. No neuroforamina stenosis. C3-4: Broad-based disc osteophyte complex formation resulting in ventral deformity of the spinal cord. No cord signal abnormality. Bilateral neuroforamina narrowing left greater than right. Degenerative changes in the left facet joint. C4-5: Broad-based disc osteophyte compresses formation resulting in ventral deformity of the spinal cord. No cord signal abnormality. No neuroforamina stenosis. C5-6: Broad-based disc osteophyte compresses formation resulting in ventral deformity of the spinal cord. No cord signal abnormality. Left neuroforamina narrowing on a degenerative basis. C6-7: Broad-based disc osteophyte compresses formation resulting in ventral deformity of the spinal cord. No cord signal abnormality. Right neuroforamina narrowing on a degenerative basis. C7-T1: Broad-based disc osteophyte compresses formation. No central spinal canal stenosis. No neuroforamina stenosis. No prevertebral compartment hematoma, mass or fluid collection. Flow-void signal within the main vessels is normal. Right vertebral artery is dominant. MR/MR cervical spine wo con IMPRESSION: Multilevel cervical spondylosis, C3 C6-7 pronounced at C3-4 without cord edema and or myelopathy. 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 Electronically signed by: Freddie Frankel MD 07/01/2025 07:04 AM EDT
--- OUTSIDE RECORDS SUMMARY | 2025-06-30 18:21 | XMS_ITS | Encounter Summary ---
Author Organization [employer] Address [address] [facility] 7t [place] [address] Care Team Providers Care Community Director Name Role Phone Kristi Warren Primary Care Provider [phone] Reason for Visit * Reason Comments Med Refill Encounter Details Date Type Department Care Team (Late Contact Info) Description 11/18/2022 Refill [facility] MEDICINE [address] [place], [place] [phone] Kristi Warren ANP [address] [place], [place] [phone] Type 2 diabetes mellitus with diabetic nephropathy, with long-term current use of insulin ([facility]) (Primary Dx) Social History Tobacco Use Types [...] Department Care Team (Late Contact Info) Description 08/21/2025 9:00 AM EST Office Visit [facility] MEDICINE [address] [place] [address] Kristi Warren ANP [address] [place] [address] documented as of this encounter Visit Diagnoses Diagnosis Type 2 diabetes mellitus with diabetic nephropathy, with long-term current use of insulin ([facility])- Primary documented in this encounter Care Teams Community Director Relationship Specialty Start Date End Date Kristi Warren ANP [address] [place] [address] PCP - General Family Medicine 03/24/20 [facility] 08/09/24 12/19/24 [facility] 12/09/24 documented as of this encounter
--- OUTSIDE RECORDS SUMMARY | 2025-06-30 18:21 | XMS_ITS | Encounter Summary ---
Author Organization [employer] Address [address] [facility] 7t [place] [address] Care Team Providers Care Management Nurse Rn Name Role Phone Kristi Warren Primary Care Provider [phone] Reason for Visit * Reason Onset Date Comments Medication Question 07/15/2024 Encounter Details Date Type Department Care Team ([facility] st Contact Info) Description 07/15/[address] [facility] [address] [place] [address] Kristi Warren ANP [address] [place] [address] Medication Question Social History Tobacco Use Types [...] medications. The pt was recently discharged from [facility] after being in the hospital for a pneumothorax. Viktoria is concerned with the medications that the pt was discharged with and is apprehensive in regards to giving them to the pt. RN spoke with OMERO Song, who is in agreement that the pt can be scheduled for a [facility] appt. This will be forwarded to [facility] for scheduling. * Telephone Encounter - Trace Castaneda - 07/15/2024 8:46 AM EDT Tc from Viktoria from [facility] requesting a call back to compare medications and to see if the provider would like the patient to continue the medication documented in this encounter Plan of Treatment Upcoming Encounters Date Type Department Care Team (Late st Contact Info) Description 08/21/2025 9:00 AM EST Office Visit [facility] [address] [place] [address] Kristi Warren ANP [address] [place] [address] documented as of this encounter Goals Goal Patient Goal Type Associated Problems Recent Progress Patient-Stated? Author Blood Pressure < 140/90 Blood Pressure 104/70(2024 1:09 PM EDT) No Mike Harris PharmD Hemoglobin A1c < 7.5 Result Component 6.5( 3:05 PM EDT) No Mike Harris PharmD documented as of this encounter Visit Diagnoses Not on filedocumented in this encounter Additional Health Concerns Assessment Noted Time PHQ-9 Depression Total Score: 13 024 1:24 PM EDT documented as of this encounter Care Teams Management Nurse Rn Relationship Specialty Start Date End Date Kristi Warren ANP [address] [place] [address] PCP - General Family Medicine 03/24/20 [facility] 08/09/24 12/19/24 [facility] 12/09/24 documented as of this encounter
--- OUTSIDE RECORDS SUMMARY | 2025-06-30 18:21 | XMS_ITS | Encounter Summary ---
Author Organization [employer] Address [address] [facility] 7t [place] [address] Care Team Providers Care Feed And Farm Management Adviser Name Role Phone Kristi Warren Primary Care Provider [phone] Reason for Visit * Reason Onset Date Comments Referral 11/17/2022 Encounter Details Date Type Department Care Team ([facility] st Contact Info) Description 11/17/2022 Telephone [facility] [address] [place] [address] Kristi Warren ANP [address] [place] [address] Referral Social History Tobacco Use Types Packs/Day [...] from pt requesting a referral for a diesel service technician to have toe nails cut Please contact pt at [phone] documented in this encounter Plan of Treatment Upcoming Encounters Date Type Department Care Team (Late st Contact Info) Description 08/21/2025 9:00 AM EST Office Visit [facility] [address] [place] [address] Kristi Warren ANP [address] [place] [address] documented as of this encounter Visit Diagnoses Not on filedocumented in this encounter Care Teams Feed And Farm Management Adviser Relationship Specialty Start Date End Date Kristi Warren ANP [address] [place] [address] PCP - General Family Medicine 03/24/20 [facility] 08/09/24 12/19/24 [facility] 12/09/24 documented as of this encounter
--- OUTSIDE RECORDS SUMMARY | 2025-06-30 18:21 | XMS_ITS | Encounter Summary ---
Author Organization [employer] Address [address] [facility] 7t [place] [address] Care Team Providers Care Viscera Washer Name Role Phone Kristi Warren Primary Care Provider [phone] Encounter Details Date Type Department Care Team ([facility] Contact Info) Description 11/24/2022 Orders Only [facility] [address] [place], [place] [phone] Amalia Pierre LPN Social History Tobacco Use [...] Description 08/21/2025 9:00 AM EST Office Visit [facility] [address] [place] [address] Kristi Warren ANP [address] [place] [address] documented as of this encounter Visit Diagnoses Not on filedocumented in this encounter Care Teams Viscera Washer Relationship Specialty Start Date End Date Kristi Warren ANP [address] [place] [address] PCP - General Family Medicine 03/24/20 [facility] 08/09/24 12/19/24 [facility] 12/09/24 documented as of this encounter
--- OUTSIDE RECORDS SUMMARY | 2025-06-30 18:21 | XMS_ITS | Encounter Summary ---
Author Organization [employer] [facility] Address [address] [facility] 7t [place] [address] Care Team Providers Care Clarification Operator Name Role Phone Kristi Warren Primary Care Provider [phone] Encounter Details Date Type Department Care Team (Late Contact Info) Description 10/19/2022 Orders Only [facility] [address] [place] [address] Mona Porras LPN Social History Tobacco Use [...] Description 08/21/2025 9:00 AM EST Office Visit [facility] [address] [place] [address] Kristi Warren ANP [address] [place], [place] [phone] documented as of this encounter Procedures Procedure Name Priority Date/Time Associated Diagnosis Comments XR FOOT 1-2 VIEWS RIGHT Routine 11/07/2022 11:42 AM EST documented in this encounter Results * XR Foot 1-2 Views Right (11/07/2022 11:42 AM EST) Anatomical Region Laterality Modality Lower Extremities, Foot Right [facility] 11/07/2022 11:4 2 AM EST Narrative 11/09/2022 8:38 PM EST [address] [address] XRay Report Signed Patient: Albert Baeza MR#: [id number] : 1950 Acct:[id number] Age/Sex: 72 / M ADM Date: 11/07/22 Loc: HO.XRAY Attending Dr: Ophelia Hubbard NP Ordering Physician: OPHELIA HUBBARD NP Date of Service: 11/07/22 Procedure(s): XR foot RT 2V Accession Number(s): [id number] cc: OPHELIA HUBBARD NP EXAMINATION: XR FOOT, [...] MD in OV> 11/09/222034 DD/ 1142 TD/TT: Financial Services Associate: ALBERT Procedure Note Donotuseinterpreter, Image - 11/09/[address] [address] XRay Report Signed Patient: Albert BaezaMR#: [id number] : 1950Acct:[id number] Age/Sex: 72 / MADM Date: 11/07/22 Loc: HO.TYRONE Attending Dr: Ophelia Hubbard NP Ordering Physician: OPHELIA HUBBARD NP Date of Service: 11/07/22 Procedure(s): XR foot RT 2V Accession Number(s): [id number] cc: OPHELIA HUBBARD NP EXAMINATION: XR FOOT, [...] MD in OV> 11/09/222034 DD/ 1142 TD/TT: Financial Services Associate: ALBERT [place] Provider Result Type Result Stat [facility] External Provider IMG XR PROCEDURES Edited Result - Final documented in this encounter Visit Diagnoses Not on filedocumented in this encounter Care Teams Clarification Operator Relationship Specialty Start Date End Date Kristi Warren ANP [address] [place] [address] PCP - General Family Medicine 03/24/20 [facility] 08/09/24 12/19/24 [facility] 12/09/24 documented as of this encounter
--- OUTSIDE RECORDS SUMMARY | 2025-06-30 18:21 | XMS_ITS | Encounter Summary ---
Author Organization [facility], Address [address] [place] [address] Phone Care Team Providers Care Circuit Court Judge Name Role Phone Unavailable Primary Care Provider Unavailabl e Reason for Visit * Reason Comments Med Refill Encounter Details Date Type Department Care Team (Late st Contact Info) Description 10/15/2024 Refill [facility], [address] [place] [place] [address] Jt Ochoa PA [address] [place] [address] Social History Tobacco Use Types [...]
--- OUTSIDE RECORDS SUMMARY | 2025-06-30 18:22 | XMS_ITS | Encounter Summary ---
Author Organization [employer] Address [address] [facility] 7t [place] [address] Care Team Providers Care Desktop Engineer Name Role Phone Kristi Warren Primary Care Provider [phone] Reason for Visit * Reason Onset Date Comments Durable Medical Equipment 07/27/2023 Encounter Details Date Type Department Care Team (Late st Contact Info) Description 07/27/2023 Telephone [facility] [address] [place] [address] Kristi Warren ANP [address] [place] [address] Durable Medical Equipment Social History Tobacco Use [...] PM EDT Tc from [facility] requesting DME for pt on glucometer kit. Any question contact [facility] documented in this encounter Plan of Treatment Upcoming Encounters Date Type Department Care Team (Late st Contact Info) Description 08/21/2025 9:00 AM EST Office Visit [facility] [address] [place] [address] Kristi Warren ANP [address] [place] [address] documented as of this encounter Visit Diagnoses Not on filedocumented in this encounter Care Teams Desktop Engineer Relationship Specialty Start Date End Date Kristi Warren ANP [address] [place] [address] PCP - General Family Medicine 03/24/20 [facility] 08/09/24 12/19/24 [facility] 12/09/24 documented as of this encounter
--- OUTSIDE RECORDS SUMMARY | 2025-06-30 18:22 | XMS_ITS | Encounter Summary ---
Author Organization [facility], Address [address] [place] [address] Phone Care Team Providers Care Inventory Auditor Name Role Phone Unavailable Primary Care Provider Unavailabl e Encounter Details Date Type Department Care Team (Late st Contact Info) Description 10/19/2022 Documentation Only [facility], [address] [place] [address] Jt Ochoa PA [address] [place] [address] Social History Tobacco Use Types [...]
--- OUTSIDE RECORDS SUMMARY | 2025-06-30 18:22 | XMS_ITS | Clinical Summary ---
Author Organization [facility], Address [address] [place] [address] [place] [address] Phone Care Team Providers Care Etl Software Engineer Name Role Phone Unavailable Primary Care [...] tablet 11 3 Active Vitamin D, Ergocalciferol, 15190 units capsule Use 500 mcg in the [...] Hypercholesterolemia 09/24/2019 021 Hypertensive heart disease w [facility] congestive heart failure 09/24/2019 01/24/2022 Microalbuminuria [...] PM EST) Hemoglobin A1C 6.0(H) (4.0-5.6) % [facility] Comment: MONITORING: In known diabetic patients, hemoglobin A1c targets should be discussed with health care provider. DIAGNOSTIC USE: The [place] [employer] (ADA) and the World Health [...] Supplement 1 Testing performed or reported by [facility], a Service of [facility], [address] [place] [id number] Elvira Lopez MD, Rn Post Partum [facility]# [id number] Blood specimen (specimen) Venous blood / Unknown 10/25/2022 1:48 PM EST 10/25/2022 1:54 PM EST us [facility] BLOOD ORDERABLES Final Re sult [facility] from Last 3 Months or Most Recently Relevant to Health Maintenance Insurance [facility] [employer] Dual SNP ([id number]) [place] [id number] [place] [address] , [place] [address] [place] [address]
--- OUTSIDE RECORDS SUMMARY | 2025-06-30 18:22 | XMS_ITS | Encounter Summary ---
Author Organization [employer] Address [address] [facility] 7t [place] [address] Care Team Providers Care Multifocal Lens Inspector Name Role Phone Kristi Warren Primary Care Provider [phone] Reason for Visit * Reason Onset Date Comments Durable Medical Equipment 04/20/2023 Encounter Details Date Type Department Care Team (Late st Contact Info) Description 04/20/2023 Telephone [facility] [address] [place] [address] Kristi Warren ANP [address] [place] [address] Durable Medical Equipment Social History Tobacco Use [...] Description 08/21/2025 9:00 AM EST Office Visit [facility] [address] [place] [address] Kristi Warren ANP [address] [place] [address] documented as of this encounter Visit Diagnoses Not on filedocumented in this encounter Care Teams Multifocal Lens Inspector Relationship Specialty Start Date End Date Kristi Warren ANP [address] [place], [place] [phone] PCP - General Family Medicine 03/24/20 [facility] 08/09/24 12/19/24 [facility] 12/09/24 documented as of this encounter
--- OUTSIDE RECORDS SUMMARY | 2025-06-30 18:22 | XMS_ITS | Clinical Summary ---
Author Organization [employer] Address [address] [place] [address] Care Team Providers Care Plasma Specialist Name Role Phone Kristi Warren BATSHEVA Primary Care Provider Allergies No known active allergies Medications * This document contains information received from the source organization and may not represent a complete record from that organization. Blood Pressure kitIndications:P rimary hypertension 1 kit in the morning. 1 kit 04/20/20 23 Active glucose blood (FREESTYLE LITE) test strip test blood sugars twice a day 100 each 11 06/30/20 23 Active clotrimazole (Lotrimin) 1 % creamIndications :Recurrent tinea pedis APPLY TOPICALLY TWICE DAILY 30 g 2 04/08/20 24 Active TRUEplus Lancets 33G miscIndications: Type 2 diabetes mellitus without complications (CMS/HCC) TEST BLOOD SUGAR 2-3 TIMES PER DAY 100 each 5 07/09/20 24 Active atorvastatin (Lipitor) 40 MG tablet Take 1 tablet (40 mg) by mouth Once per day. 90 tablet 3 08/07/20 24 2024 Active acetaminophen (Tylenol Extra Strength) 500 MG tablet Take 2 tablets (1,000 mg) by mouth every 8 (eight) hours if needed for mild pain or moderate pain. 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 May repeat every 2-3 minutes if needed, alternating nostrils, until medical assistance becomes available. 2 each 08/16/20 24 2024 Active Continuous Glucose Sensor (FreeStyle Sherley 2 Sensor) miscIndications: Type 2 diabetes mellitus with stage 3 chronic kidney disease, with long-term current use of insulin, unspecified whether stage 3a or 3b CKD ([facility]) USE DIRECTED TO TEST BLOOD SUGAR CHANGE EVERY 14 DAYS 2 each 11/20/19 25 Active FREESTYLE LITE test stripIndications :Type 2 diabetes mellitus with unspecified complications ([facility]) test blood sugars twice a day 100 each 12/21/192025 Active Emollient (CeraVe Daily Moisturizing) lotionIndication s:Dry skin Apply 4 g topically 2 times daily. 355 mL 01/08/20 Active metoprolol succinate XL (Toprol XL) 25 MG 24 hr tabletIndication s:Essential hypertension Take 0.5 tablets (12.5 mg) by mouth Once per day. Do not crush or chew. 15 tablet 04/01/20 25 2025 Active cilostazol (Pletal) 100 MG tablet TAKE 1 TABLET BY MOUTH TWICE DAILY AT NOON AND BEDTIME 01/30/20 25 Active Skin Protectants, Misc. (Eucerin Original Healing) creamIndications :Dry skin Apply 4 g topically 2 times daily. To legs and arms 454 g 05/12/20 25 Active capsaicin (Capzasin-HP) 0.1 % creamIndications :Neck pain Apply 2g as needed up to twice daily for pain 42.5 g 05/12/20 25 Active Aspirin Low Dose 81 MG EC tabletIndication s:History of non-ST elevation myocardial infarction (NSTEMI) TAKE 1 TABLET BY MOUTH AT BEDTIME 90 tablet 05/20/20 25 Active Continuous Glucose Sensor (FreeStyle Sherley 2 Plus Sensor) miscIndications: Diabetic nephropathy associated with type 2 diabetes mellitus ([facility]) 1 each every 15 days. Change sensor every 15 days 2 each 06/02/20 25 Active Jardiance 25 MGIndications:Ty pe 2 diabetes mellitus with stage 3 chronic kidney disease, with long-term current use of insulin, unspecified whether stage 3a or 3b CKD (CMS/HCC) TAKE 1 TABLET BY MOUTH EVERY MORNING 90 tablet 1 06/24/20 25 Active traZODone (Desyrel) 100 MG tabletIndication s:Insomnia, unspecified type TAKE 1 AND 1/2 TABLETS BY MOUTH AT BEDTIME 45 tablet 1 06/24/20 25 Active empagliflozin (Jardiance) 25 MGIndications:Ty pe 2 diabetes mellitus with stage 3 chronic kidney disease, with long-term current use of insulin, unspecified whether stage 3a or 3b CKD (CMS/HCC) TAKE 1 TABLET BY MOUTH EVERY MORNING 90 tablet 1 12/20/19 25 2024 Discontinued traZODone (Desyrel) 100 MG tabletIndication s:Insomnia, unspecified type TAKE 1 AND 1/2 TABLETS BY MOUTH AT BEDTIME 45 tablet 05/23/20 25 2024 Discontinued Active Problems Problem Noted Date [...] intervention , Patient to reach out to [facility] team as needed, Comply with [...] June 2024 which was ordered by his residential treatment staff. Results did not show atrial fibrillation. - the patient was seen by a residential treatment staff while int hospital and telemetry tracing showed atrial fibrillation per residential treatment staff. - the patient was started on eliquis but it was not continued after he was discharged from the [facility] for unclear reasons. - due to increase risk of fall, will consult with residential treatment staff. The patient is taking aspirin and cilostazol for PAD. Will consult with residential treatment staff. Metabolic encephalopathy 08/06/2024 Assessment & Plan (08/06/2024 [...] to low BP. - will consult with residential treatment staff for optimal BP management plan. Mood disorder 07/04/2017 Onychomycosis 07/04/2017 Osteoarthritis of right knee 07/04/2017 Tobacco dependence syndrome 07/04/2017 Stage 3 chronic kidney disease 07/04/2017 Overview (05/25/2023): Update for Diagnosis Load Retinopathy 05/29/2012 Encounters Date Type Department Care Team Description 06/23/2025 Refill [facility] [place] [address] Kristi Warren ANP Type 2 diabetes mellitus with stage 3 chronic kidney disease, with long-term current use of insulin, unspecified whether stage 3a or 3b CKD ([facility]); Insomnia, unspecified type 06/18/2025 Telephone [facility] [place] [address] Kristi Warren ANP Durable Medical Equipment 06/12/2025 1:00 PM EDT Office Visit [facility] [place] [address] Kristi Warren ANP Diabetic peripheral neuropathy ([facility]) (Primary Dx); Cervical stenosis of spine; Moderate protein-calorie malnutrition ([facility]); Frail elderly; Failed back surgical syndrome; Restless legs 06/12/2025 Travel 06/11/2025 Telephone [facility] [place] [place] [address] Kristi Warren ANP Durable Medical Equipment 06/05/2025 Telephone [facility] [place] [address] Kristi Warren ANP Prior Authorization 06/02/2025 Refill [facility] [place] [address] Katiana Villarreal, MARIA R Diabetic nephropathy associated with type 2 diabetes mellitus ([facility]) (Primary Dx) 05/27/2025 Orders Only GENERIC EXTERNAL DATA DEPARTMENT Provider, Generic External Data 05/26/2025 Telephone [facility] [place] [address] Kristi Warren ANP 05/23/2025 Orders Only [facility] Kathy [facility] [place] [address] Kristi Warren ANP 05/23/2025 Refill [facility] Kathy [facility] [place] [address] Mary Carmen, MD Beny Insomnia, unspecified type 05/20/2025 Orders Only [facility] Kathy [facility] [place] [address] Kristi Warren ANP Abnormal weight loss (Primary Dx) 05/20/2025 Telephone [facility] [address] [place] [address] ABD/PELVIS ORDER 05/19/2025 Refill [facility] [address] [place], [place] [address] [address] Kristi Warren ANP History of non-ST elevation myocardial infarction (NSTEMI) 05/12/2025 1:00 PM EDT Office Visit [facility] [address] [place] [phone] Kristi Warren ANP Neck pain (Primary Dx); Dry skin; Easy bruising; Fatigue, unspecified type; Anorexia; Moderate protein-calorie malnutrition (CMS/HCC) 05/12/2025 Travel 05/09/[address] [address] Kristi Warren ANP chart prep 05/09/[address] [address] Kristi Warren ANP Nurse Triage 04/29/[address] [address] Kristi Warren ANP Durable Medical Equipment 04/25/2025 Refill [facility] [address] [place] [address] Kristi Warren ANP Insomnia, unspecified type 04/23/2025 Telephone [facility] [address] [place] [address] ABD/PELVIS ORDER 04/22/[address] [address] Kristi Warren ANP ER Follow-up; fyi 04/19/2025 Travel 04/18/2025 Telephone [facility] [address] [place] [phone] Norma Campos PharmD 04/18/2025 Telephone [facility] [address] [place] [address] Kristi Warren ANP Nurse Triage 04/16/[address] [address] PierNorma Bailey PharmD 04/15/2025 1:20 PM EDT Office Visit [facility] [place] [address] Amy Fry MD Paroxysmal atrial fibrillation (CMS/HCC) (Primary Dx) 04/15/2025 Orders Only GENERIC EXTERNAL DATA DEPARTMENT Provider, Generic External Data 04/15/[address] [address] Kristi Warren ANP Nurse Outreach; 911 dispatched 04/15/[address] [address] Kandace Harris RN Triage 04/15/2025 Travel 04/12/2025 Results Follow-Up [address] [address] Kristi Warren ANP POCT Glucose, POCT HGB A1C, Sed Rate by Modified [place], Additional followed-up results: 4 04/02/[address] [address] Kristi Warren ANP Durable Medical Equipment 04/01/2025 11:15 AM EDT Office Visit [address] [address] Kristi Warren ANP Diabetic nephropathy associated with type 2 diabetes mellitus (CMS/HCC) (Primary Dx); Essential hypertension; At risk for polypharmacy; Hypotension, unspecified hypotension type; Abnormal weight loss; Diarrhea, unspecified type; Callus between toes; Recurrent tinea pedis; Moderate protein-calorie malnutrition (CMS/HCC); Anorexia; Frail elderly; Incontinence of feces, unspecified fecal incontinence type; Severe protein-calorie malnutrition (CMS/HCC) 04/01/[address] [address] Kristi Warren ANP Insomnia, unspecified type 04/01/2025 Travel 04/01/[address] [address] Kristi Warren ANP Nurse Triage 03/31/[address] [address] Kristi Warren ANP Referral 03/31/2025 Orders Only GENERIC EXTERNAL DATA DEPARTMENT Provider, Generic External Data 03/31/2025 Telephone [facility] [address] [place] [address] Kristi Warren ANP Durable Medical Equipment from Last 3 Months Immunizations Immunization Administration [...] Never Tobacco Cessation:Ready to Q uit: Not Asked Comments:Reports having an occasional cigarette but is [...] Sign Reading Time Taken Comments Blood Pressure 104/70 06/12/2025 1:09 PM EDT Pulse 73 06/12/2025 1:09 PM EDT Temperature 36.1 C (97 F) 06/12/2025 1:09 PM EDT Respiratory Rate 14 06/12/2025 1:09 PM EDT Oxygen Saturation 95% 06/12/2025 1:09 PM EDT Inhaled Oxygen Concentration - - Weight 67.2 kg (148 lb 3.2 oz) 06/12/2025 1:09 P M EDT Height 167.6 cm (5' 6 ) 05/12/2025 12:56 PM EDT Body Mass Index 23.92 05/12/2025 12:56 PM EDT Plan of Treatment Upcoming Encounters Date Type Department Care Team (Late st Contact Info) Description 08/21/2025 9:00 AM EST Office Visit [facility] [address] [place] [address] Kristi Warren, ANP [address] [place], [place] [phone] Health Maintenance Due Date Last Done Comments CT Colonography 1950 FIT DNA/Cologuard 1950 FIT 1950 FOBT 1950 Sigmoidoscopy 1950 Colonoscopy 07/26/2020 07/26/2010 Colorectal Cancer Screening 07/26/2020 [...] 04/01/2025, 04/01/2025, Additional history exists Tobacco Screening 06/12/2026 06/12/2025 Eye Exam 09/30/2026 DTaP/Tdap/Td Vaccines (4 - Td or Tdap) [...] nephropathy associated with type 2 diabetes mellitus ([facility]/HCC) ALBUMIN, RANDOM URINE W/CREATININE Routine 03/31/2025 11:34 AM EDT POCT GLYCATED HEMOGLOBIN, TOTAL Routine 03/13/2025 3:05 PM EDT Diabetic nephropathy associated with type 2 diabetes mellitus ([facility]/HCC) HM COLONOSCOPY Routine 07/26/2010 from Last 3 Months or Most Recently Relevant to Health Maintenance Results * (ABNORMAL) CBC (05/27/2025 9:04 AM EDT) Only the most recent of2 resultswithin the time period is included. White Blood Count 7.3 4.8 - 10.8 X10*3/uL [facility] Red Blood Count 4.67 4.60 - 5.80 X10*6/uL [facility] Hemoglobin 16.4 14.0 - 18.0 g/dl [facility] Hematocrit 47.3 42.0 - 52.0 % [facility] Mean Corpuscular Volume 101.3(H) 80.0 - 98.0 fL [facility] Mean Corpuscular Hemoglobin 35.1(H) 27.0 - 33.0 pg [facility] Mean Corpuscular HGB Conc 34.7 31.0 - 36.0 g/dl [facility] Red Cell Distribution Width 14.4 11.0 - 16.0 % [facility] Platelet Count 187 160 - 400 X10*3/uL [facility] Mean Platelet Volume 10.0 9.4 - 12.4 fL [facility] NRBC Pct Auto 0.0 0.0 - 0.2 /100WBC [facility] NRBC Abs Auto 0.000 0.0 - 0.012 X10*3/uL [facility] 05/27/2025 9:04 AM EDT 05/27/2025 9:04 AM EDT us Generic External Data Provider LAB BLOOD ORDERAB LES Final Result [facility] [address] [place] [address] [phone] * Testosterone, Total, males (Adult), IA (05/27/2025 9:04 AM EDT) Only the most recent of2 resultswithin the time period is included. Testosterone, Total 300 250 - 1100 ng/dL [facility] Comment:Men with clinically significant hypogonadalsymptoms and testosterone values repeatedly inthe range of the 200-300 ng/dL or less, maybenefit from testosterone treatment afteradequate risk and benefits counseling.For additional information, please refer [email or web address]/[email or web address](This link is being provided for informational/educational purposes only.)This test was developed and its analytical performancecharacteristics have been determined by [employer] [place], [place]. It hasnot been cleared or approved by the U.S. Food and DrugAdministration. This assay has been validated pursuantto the CLIA regulations and is used for clinicalpurposes.THIS TEST WAS PERFORMED AT:[employer]/[facility] [place] [id number] MCCURDY MD,PHD 05/27/2025 9:04 AM EDT 05/27/2025 9:04 AM EDT us Generic External Data Provider LAB BLOOD ORDERAB LES Final Result [facility] [address] [place] [address] [phone] * PSA,Total (05/27/2025 9:04 AM EDT) Only the most recent of2 resultswithin the time period is included. Prostate Specific Antigen 0.38 <0.05 - 4.0 ng/mL [facility] Comment:PSA methodology: Abb wendy Alinity i ChemiluminescentMicroparticle Immunoassay (CMIA) 05/27/2025 9:04 AM EDT 05/27/2025 9:04 AM EDT Generic External Data Provider LAB BLOOD ORDERAB LES Final Result Performing Organization Address [facility] Co de Phone Number [facility] [address] [place] [phone] * (ABNORMAL) High Sensitivity Troponin I (04/15/2025 4:07 PM EDT) Pathologist [facility] TROPONIN I HIGH SENSITIVITY 35.7(H) <3.5 - 35.0 ng/L [facility] Comment:The Bueno high sens itivity Troponin-I results should beused in conjunction with other diagnostic information suchas ECG, clinical observations and information, and patientsymptoms to aid in the diagnosis of AL. 04/15/2025 4:07 PM EDT 04/15/2025 4:10 PM EDT LUX [employer]ure External Data Provider LAB BLOOD ORDERAB LES Final Result Performing Organization Address [facility] de Phone Number [facility] [address] [place] [phone] * SARS-CoV-2 RNA, Influenza A/B, and RSV RNA, Ql NAAT (04/15/2025 4:06 PM EDT) Pathologist [facility] Influenza A PCR NEGATIVE Negative [facility] Influenza B PCR NEGATIVE Negative [facility] Resp Syncy Virus RNA Qual PCR NEGATIVE Negative [facility] SARS COV2 PCR NEGATIVE Negative [facility] Comment:All test results mus t be [...] use by authorized laboratories.Testing performed on the [employer] GeneXpert utilizingreal-time RT-PCR.All SARS CoV2 and positive influenza A/B results arereported to [facility]. 04/15/2025 4:06 PM EDT 04/15/2025 4:10 PM EDT us Generic External Data Provider LAB MICROBIOLOGY - GENERAL ORDERABLES Final Result [facility] [address] [place] [address] [phone] * (ABNORMAL) CBC auto differential (04/15/2025 4:06 PM EDT) Only the most recent of2 resultswithin the time period is included. White Blood Count 8.2 4.8 - 10.8 X10*3/uL [facility] Red Blood Count 4.58(L) 4.60 - 5.80 X10*6/uL [facility] Hemoglobin 15.6 14.0 - 18.0 g/dl [facility] Hematocrit 44.5 42.0 - 52.0 % [facility] Mean Corpuscular Volume 97.2 80.0 - 98.0 fL [facility] Mean Corpuscular Hemoglobin 34.1(H) 27.0 - 33.0 pg [facility] Mean Corpuscular HGB Conc 35.1 31.0 - 36.0 g/dl [facility] Red Cell Distribution Width 14.1 11.0 - 16.0 % [facility] Platelet Count 156(L) 160 - 400 X10*3/uL [facility] Mean Platelet Volume 9.6 9.4 - 12.4 fL [facility] Neutrophils Percent Auto 56.6 45 - 73 % [facility] Imm Gran Pct Auto 0.4 0.0 - 0.4 % [facility] Lymphocytes Percent Auto 31.7 20 - 40 % [facility] Monocytes Percent Auto 9.9 2 - 11 % [facility] Eosinophils Percent Auto 0.9 0 - 4 % [facility] Basophils Percent Auto 0.5 0 - 2 % [facility] NRBC Pct Auto 0.2 0.0 - 0.2 /100WBC [facility] Neutrophils Absolute Auto 4.6 2.0 - 8.3 x10*3/uL [facility] Imm Gran Abs Auto 0.03 0.00 - 0.03 X10*3/uL [facility] Lymphocytes Absolute Auto 2.6 1.2 - 4.9 X10*3/uL [facility] Monocytes Absolute Auto 0.8 0.1 - 1.2 X10*3/uL [facility] Eosinophils Absolute Auto 0.1 0.0 - 0.4 X10*3/uL [facility] Basophils Absolute Auto 0.0 0.0 - 0.2 X10*3/uL [facility] NRBC Abs Auto 0.020(H) 0.0 - 0.012 X10*3/uL [facility] 04/15/2025 4:06 PM EDT 04/15/2025 4:10 PM EDT us Generic External Data Provider LAB BLOOD ORDERAB LES Final Result [facility] [address] [place] [phone] * (ABNORMAL) Magnesium (04/15/2025 4:06 PM EDT) Magnesium 1.4(LL) 1.6 - 2.6 mg/dL [facility] Comment:Critical value for t est(s):MAGS Results called to and readback by:DR BLACK Person calling:SADIQ Date:[id number] 04/15/2025 4:06 PM EDT 04/15/2025 4:10 PM EDT us Generic External Data Provider LAB BLOOD ORDERAB LES Final Result [facility] [address] [place], [place] [phone] * (ABNORMAL) Comprehensive Metabolic Panel (04/15/2025 4:06 PM EDT) Sodium 140 135 - 145 mmol/L [facility] Potassium 3.4 3.3 - 5.1 mmol/L [facility] Chloride 98 96 - 108 mmol/L [facility] Carbon Dioxide 33(H) 22 - 29 mmol/L [facility] Anion Gap 12 12 - 20 [facility] Urea Nitrogen (BUN) 11 9 - 16 mg/dL [facility] Creatinine, Serum 1.16 0.5 - 1.4 mg/dL [facility] Creatinine Clr Calc Pharmacy 49.6 [facility] Comment:eGFR (calculated fro m the MDRD study equation) and eCrCl(calculated from the Cockcroft-Gault equation) are based ondifferent parameters and may not yield comparable results.If eCrCl result is absurd, please check patient'sheight/weight. Estimated Glomerular Filt Rate >60 [facility] Comment:Chronic Kidney Disea se: Estimated GFR < 60 mL/min/1.37u2Qggric Kidney Disease: Estimated GFR < 15 mL/min/1.73m2 Glucose 119(H) 60 - 115 mg/dL [facility] Calcium 8.5 8.4 - 10.2 mg/dL [facility] Bilirubin, Total 1.5(H) 0.0 - 1.0 mg/dL [facility] Aspartate Amino Transferase 60(H) 5 - 37 U/L [facility] Alanine Aminotransferase 71(H) 0 - 40 U/L [facility] Total Protein 5.6(L) 6.5 - 8.0 g/dL [facility] Albumin Level 3.6 3.5 - 5.0 g/dL [facility] Alkaline Phosphatase 89 39 - 117 U/L [facility] 04/15/2025 4:06 PM EDT 04/15/2025 4:10 PM EDT us Generic External Data Provider LAB BLOOD ORDERAB LES Final Result Performing Organization Address [facility] Co de Phone Number [facility] [address] [place] [phone] * ECG 12 lead (04/15/2025 2:50 PM EDT) Narrative Amy Fry MD - 04/15/2025 2:50 PM EDT A fib with RVR HR 128 us Amy Estrada MD ECG ORDERABLES Final Result * TSH W/Reflex to FT4 (03/31/2025 11:41 AM EDT) TSH reflex Free T4 2.87 0.32 - 4.0 uIU/mL [facility] Blood Venous blood specimen / Unknown 03/31/2025 11:41 AM EDT 03/31/2025 11:41 AM EDT Kristi HERMAN LAB BLOOD ORDERABLES Final Resul t Performing Organization Address [facility] de Phone Number [facility] [address] [place] [phone] * Hepatitis C Antibody with Reflex to HCV, RNA, Quantitative, Real-Time PCR (03/31/2025 11:41 AM EDT) Hepatitis C Antibody Nonreactive Nonreactive [facility] Comment:Antibodies to HCV no t detected; does not exclude early acuteHCV infection. Blood Venous blood specimen / Unknown 03/31/2025 11:41 AM EDT 03/31/2025 11:41 AM EDT Kristi HERMAN LAB BLOOD ORDERABLES Final Resul t Performing Organization Address City/[facility] Co de Phone Number [facility] [address] [place] [phone] * HIV-1/2 Antigen and Antibodies, Fourth Generation, with Reflexes (03/31/2025 11:41 AM EDT) [facility] HIV AB/AG Nonreactive Nonreactive [facility] Comment:HIV-1 p24 Ag and/or HIV-1/HIV-2 Ab not detected.A test result that is nonreactive does not exclude thepossibility of exposure to or infection with HIV-1 and/orHIV-2. Nonreactive results in this assay for individualswith prior exposure to HIV-1 and/or HIV-2 may be due toantigen and antibody levels that are below the limit ofdetection of this assay.The [employer] HIV Ag/Ab Combo assay result andsupplemental assay results should be interpreted inconjunction with the patient's clinical presentation,history and other laboratory results. If the results areinconsistent with clinical evidence, additional testing issuggested to confirm the result. Blood Venous blood specimen / Unknown 03/31/2025 11:41 AM EDT 03/31/2025 11:41 AM EDT us Kristi Warren [facility] LAB BLOOD ORDERABLES Final Resul t Performing Organization Address [facility]/ZIP Co de Phone Number [facility] [address] [place] [phone] * Sed Rate by Modified Ernestoergren (03/31/2025 11:41 AM EDT) [facility] Erythrocyte Sedimentation Rate 2 0 - 15 MM/HR [facility] Comment:Patients with polycy themia and many hemoglobin abnormalitiesmay have depressed sed rates whereas patients with anemiamay have elevated sed rates. Blood Venous blood specimen / Unknown 03/31/2025 11:41 AM EDT 03/31/2025 11:41 AM EDT Kristi Warren ANP LAB BLOOD ORDERABLES Final Resul t Performing Organization Address City/[facility]/ZIP Co de Phone Number [facility] [address] [place] [phone] * C-reactive Protein (03/31/2025 11:41 AM EDT) Pathologist [facility] C Reactive Protein <0.04 < or = 0.50 mg/dL [facility] Blood Venous blood specimen / Unknown 03/31/2025 11:41 AM EDT 03/31/2025 11:41 AM EDT Kristi [facility] LAB BLOOD ORDERABLES Final Resul t Performing Organization Address [facility] Co de Phone Number [facility] [address] [place] [phone] * (ABNORMAL) Hepatic Function Panel (03/31/2025 11:41 AM EDT) Pathologist [facility] Bilirubin, Total 1.6(H) 0.0 - 1.0 mg/dL [facility] Bilirubin, Direct 0.5 0.0 - 0.5 mg/dL [facility] Aspartate Amino Transferase 46(H) 5 - 37 U/L [facility] Alanine Aminotransferase 41(H) 0 - 40 U/L [facility] Total Protein 5.8(L) 6.5 - 8.0 g/dL [facility] Albumin Level 3.6 3.5 - 5.0 g/dL [facility] Alkaline Phosphatase 83 39 - 117 U/L [facility] Blood Venous blood specimen / Unknown 03/31/2025 11:41 AM EDT 03/31/2025 11:41 AM EDT Kristi [facility] LAB BLOOD ORDERABLES Final Resul t Performing Organization Address [facility]/ZIP Co de Phone Number [facility] [address] [place] [phone] * Lipid Panel, Standard (03/31/2025 11:41 AM EDT) Triglycerides 64 <150 mg/dL [facility] Comment:Desirable Triglyceri de: less than 150 mg/dLBorderline High Triglyceride 150-199 mg/dLHigh Triglyceride: 200-499 mg/dLVery High Triglyceride: greater than or equal to 5OO mg/dL Cholesterol 86 <200 mg/dL [facility] Comment:Desirable Cholestero l: less than 200 mg/dLBorderline High Cholesterol: 200-239 mg/dLHigh Cholesterol: greater than 239 mg/dL LDL Cholesterol Calculated 30 <100 mg/dL [facility] Comment:Desirable LDL: less than 100 mg/dLNear Optimal/Above Optimal LDL: 110- 129 mg/dLBorderline High LDL: 130-159 mg/dLHigh LDL: 160-189 mg/dLVery High LDL: greater than or equal to 190 mg/dL HDL Cholesterol 44 >40 mg/dL [facility] Comment:Desirable HDL: great er than 40 mg/dL Note: This HDL assay may give artificially low results in patients with liver disease. Blood Venous blood specimen / Unknown 03/31/2025 11:41 AM EDT 03/31/2025 11:[address] [facility] LAB BLOOD ORDERABLES Final Resul t [facility] [address] [place] [phone] * (ABNORMAL) Basic Metabolic Panel (03/31/2025 11:41 AM EDT) Sodium 140 135 - 145 mmol/L [facility] Potassium 3.7 3.3 - 5.1 mmol/L [facility] Chloride 99 96 - 108 mmol/L [facility] Carbon Dioxide 30(H) 22 - 29 mmol/L [facility] Anion Gap 15 12 - 20 [facility] Urea Nitrogen (BUN) 9 9 - 16 mg/dL [facility] Creatinine, Serum 0.97 0.5 - 1.4 mg/dL [facility] Creatinine Clr Calc Pharmacy TNP [facility] Comment:Unable to calculate eCrCL; all parameters not provided. Estimated Glomerular Filt Rate >60 [facility] Comment:Chronic Kidney Disea se: Estimated GFR < 60 mL/min/1.42t1Cdsuar Kidney Disease: Estimated GFR < 15 mL/min/1.73m2 Glucose 206(H) 60 - 115 mg/dL [facility] Calcium 8.7 8.4 - 10.2 mg/dL [facility] Blood Venous blood specimen / Unknown 03/31/2025 11:41 AM EDT 03/31/2025 11:41 AM EDT Kristi Warren ANP LAB BLOOD ORDERABLES Final Resul t Performing Organization Address [facility] de Phone Number [facility] [address] [place] [phone] * Albumin, Random Urine W/Creatinine (03/31/2025 11:34 AM EDT) Creatinine, Urine 85.49 mg/dL [facility] Microalbumin Urine 17.0 mg/L [facility] Microalbum Creatinine Ratio Ur 19.8 <30 ug/mg cr [facility] Comment:Albumin/Creatinine R atio Reference Ranges: Normal: < 30 ug/mg creatinine Microalbuminuria: 30 - 300 ug/mg creatinineClinical Albuminuria: > 300 ug/mg creatinine 03/31/2025 11:3 4 AM EDT 03/31/2025 11:55 AM EDT Kristi Warren ANP LAB URINE ORDERABLES Final Resul t Performing Organization Address [facility] de Phone Number [facility] [address] [place] [phone] * (ABNORMAL) POCT HGB A1C (03/13/2025 3:05 PM EDT) Hemoglobin A1C 6.5(A) 4.0 - 6.0 % QC Media Lot # [id number] Lot# Expiration Date Blood 03/13/2025 3:05 PM EDT Kristi HERMAN POINT OF CARE TEST ENTER/EDIT OR DERABLES Final Result * Colonoscopy (07/26/2010) Colonoscopy Normal Normal Historical Provider HEALTH MAINTENANCE Final Result from Last 3 Months or Most Recently Relevant to Health Maintenance Insurance ex [address] [place] [id number] [facility] ASSISTED OPTIONS (O D-SNP) Advance Directives Documents on File Type Date Recorded Patient Dressmaker Helper Expl anation Advance Directives and Living Will 12/27/2024 Health Care Proxy 12/26/24 Care Teams Plasma Specialist Relationship Specialty Start Date End Date Kristi Warren ANP [address] [place] [phone] PCP - General Family Medicine 03/24/20 [facility] 12/09/24
--- OUTSIDE RECORDS SUMMARY | 2025-06-30 18:22 | XMS_ITS | Encounter Summary ---
Author Organization [facility], Address [address] [place] [address] Phone Care Team Providers Care Carburetor Specialist Name Role Phone Unavailable Primary Care Provider Unavailabl e Encounter Details Date Type Department Care Team (Late st Contact Info) Description 01/27/2023 Orders Only [facility], [address] [place] [address] Jt Ochoa PA [address] [place] [address] Stage 3a chronic kidney disease [...]
--- OUTSIDE RECORDS SUMMARY | 2025-06-30 18:22 | XMS_ITS | Encounter Summary ---
Author Organization [employer] Address [address] [facility] 7t [place] [address] Care Team Providers Care Conduit Worker Name Role Phone Kristi Warren Primary Care Provider [phone] Reason for Visit * Reason Onset Date Comments Nurse Triage 04/18/2023 Encounter Details Date Type Department Care Team ([facility] st Contact Info) Description 04/18/2023 Telephone [facility] [address] [place] [address] Kristi Warren ANP [address] [place] [address] Nurse Triage Social History Tobacco Use Types [...] 04/18/2023 3:57 PM EDT Called pt. Via [email or web address] foreign language interpreter [id number] Nadja. Pt. States that he had an appt. With Provider Kelvin today and he was feeling dizzy after his appt. While driving and had to order puller. Pt. States hehad some blood work [...] accepted this outcome Please contact pt at [phone] (Mohawk speaker) documented in this encounter Plan of Treatment Upcoming Encounters Date Type Department Care Team (Late st Contact Info) Description 08/21/2025 9:00 AM EST Office Visit [facility] [address] [place] [phone] Kristi Warren ANP [address] [place] [address] documented as of this encounter Visit Diagnoses Not on filedocumented in this encounter Care Teams Conduit Worker Relationship Specialty Start Date End Date Kristi Warren ANP [address] [place] [address] PCP - General Family Medicine 03/24/20 [facility] 08/09/24 12/19/24 [facility] 12/09/24 documented as of this encounter
--- OUTSIDE RECORDS SUMMARY | 2025-06-30 18:22 | XMS_ITS | Encounter Summary ---
Author Organization [employer] Address [address] [facility] 7t [place] [address] Care Team Providers Care Renal Social Worker Name Role Phone Kristi Warren Primary Care Provider [phone] Reason for Visit * Reason Onset Date Comments Referral 03/29/2023 Encounter Details Date Type Department Care Team ([facility] st Contact Info) Description 03/29/2023 Telephone [facility] [address] [place] [address] Kristi Warren ANP [address] [place] [address] Referral Social History Tobacco Use Types Packs/Day [...] referral for Podiatry. Please contact pt at [phone] Bahraini Speaker documented in this encounter Plan of Treatment Upcoming Encounters Date Type Department Care Team (Late st Contact Info) Description 08/21/2025 9:00 AM EST Office Visit [facility] [address] [place] [address] Kristi Warren ANP [address] [place] [address] documented as of this encounter Visit Diagnoses Not on filedocumented in this encounter Care Teams Renal Social Worker Relationship Specialty Start Date End Date Kristi Warren ANP [address] [place] [phone] PCP - General Family Medicine 03/24/20 [facility] 08/09/24 12/19/24 [facility] 12/09/24 documented as of this encounter
--- OUTSIDE RECORDS SUMMARY | 2025-06-30 18:22 | XMS_ITS | Encounter Summary ---
Author Organization [facility], Address [address] [place] [address] Phone Care Team Providers Care Digital Cartographic Technician Name Role Phone Unavailable Primary Care Provider Unavailabl e Reason for Visit * Reason Comments Med Refill Encounter Details Date Type Department Care Team (Late st Contact Info) Description 09/15/2023 Refill [facility], [address] [place] [address] Jt Ochoa PA [address] [place] [address] Social History Tobacco Use Types [...]
--- OUTSIDE RECORDS SUMMARY | 2025-06-30 18:22 | XMS_ITS | Encounter Summary ---
Author Organization [employer] Address [address] [facility] 7t [place] [address] Care Team Providers Care Vault Clerk Name Role Phone Kristi Warren Primary Care Provider [phone] Reason for Visit * Reason Onset Date Comments ER Follow-up 04/22/2025 fyi 04/22/2025 Encounter Details Date Type Department Care Team (Late st Contact Info) Description 04/22/2025 Telephone [facility] [address] [place], [place] [phone] Kristi Warren ANP [address] [place], [place] [phone] ER Follow-up; Social History Tobacco Use Types [...] 2:30pm 04/22/25. Received call back from Ivette Mangle Roll Operator to Dr Almazan. Pt had nurse visit last Monday04/18/25 and was instructed to hold metoprolol and furosemide. His next appt is 04/25/25 with CECILY Shirley at [facility] cardiology, and has Echo scheduled for 05/01/25. [...] office who is requesting office note from [facility] Card[facility] visit on 04/18/25.Per [facility], only nursing note available for review (copied below). Per note, pt to hold metoprolol and lasix (already being held). Called [facility] Cardiology and left message for medical technologist chief requesting call back to see if longer [...] : Date: 04/19/25 Hospital: Urgent care in [place] Seen for: neck pain Symptomatic No Pt was prescribed baclofen *sick on site visit scheduled for 04/[address] Okeefe has been canceled due to noty being needed. documented in this encounter Plan of Treatment Upcoming Encounters Date Type Department Care Team (Late st Contact Info) Description 08/21/2025 9:00 AM EST Office Visit [facility] [address] [place] [address] Kristi Warren ANP [address] [place], [place] [phone] documented as of this encounter Goals Goal [...] documented as of this encounter Care Teams Vault Clerk Relationship Specialty Start Date End Date Kristi Warren ANP [address] [place] [address] PCP - General Family Medicine 03/24/20 [facility] 12/09/24 documented as of this encounter
--- OUTSIDE RECORDS SUMMARY | 2025-06-30 18:22 | XMS_ITS | Encounter Summary ---
Author Organization [facility], Address [address] [place] [address] Phone Care Team Providers Care Machine Welder Name Role Phone Unavailable Primary Care Provider Unavailabl e Encounter Details Date Type Department Care Team (Late st Contact Info) Description 07/30/2024 Documentation Only [facility], - Angel Caicedo [address] [place] [phone] Iona Salas [address] [place] [address] Social History Tobacco Use Types [...]
--- OUTSIDE RECORDS SUMMARY | 2025-06-30 18:22 | XMS_ITS | Encounter Summary ---
Author Organization [employer] Address [address] [facility] 7t [place] [address] Care Team Providers Care Adding Machine Mechanic Name Role Phone Kristi Warren Primary Care Provider [phone] Reason for Visit * Reason Onset Date Comments Nurse Triage 04/06/2023 Encounter Details Date Type Department Care Team ([facility] st Contact Info) Description 04/06/2023 Telephone [facility] [address] [place] [address] Kristi Warren ANP [address] [place] [address] Nurse Triage Social History Tobacco Use Types [...] The caller accepted this outcome Patient speaks upper sorbian documented in this encounter Plan of Treatment Upcoming Encounters Date Type Department Care Team (Late st Contact Info) Description 08/21/2025 9:00 AM EST Office Visit [facility] [address] [place] [address] Kristi Warren ANP [address] [place] [address] documented as of this encounter Visit Diagnoses Not on filedocumented in this encounter Care Teams Adding Machine Mechanic Relationship Specialty Start Date End Date Kristi Warren ANP [address] [place] [address] PCP - General Family Medicine 03/24/20 [facility] 08/09/24 12/19/24 [facility] 12/09/24 documented as of this encounter
--- OUTSIDE RECORDS SUMMARY | 2025-06-30 18:22 | XMS_ITS | Encounter Summary ---
Author Organization [employer] Address [address] [facility] 7t [place] [address] Care Team Providers Care Licensed Nursing Assistant Name Role Phone Kristi Warren Primary Care Provider [phone] Encounter Details Date Type Department Care Team (Late st Contact Info) Description 08/12/2024 Telephone [facility] [address] [place], [place] [phone] Kristi Warren ANP [address] [place] [address] Social History Tobacco Use Types Packs/Day Years [...] [facility] [address] [place] [address] Kristi Warren ANP [address] [place] [address] documented as of this encounter Goals Goal Patient Goal Type Associated Problems Recent Progress Patient-Stated? Author Blood Pressure < 140/90 Blood Pressure 104/70(2024 1:09 PM EDT) No Mike Harris, PharmD Hemoglobin A1c < 7.5 Result Component 6.5( 3:05 PM EDT) No Mike Harris, PharmD documented as of this encounter Visit Diagnoses Not on filedocumented in this encounter Additional Health Concerns Assessment Noted Time PHQ-9 Depression Total Score: 13 024 1:24 PM EDT documented as of this encounter Care Teams Licensed Nursing Assistant Relationship Specialty Start Date End Date Kristi Warren ANP [address] [place] [address] PCP - General Family Medicine 03/24/20 [facility] 08/09/24 12/19/24 [facility] 12/09/24 documented as of this encounter
--- OUTSIDE RECORDS SUMMARY | 2025-06-30 18:22 | XMS_ITS | Encounter Summary ---
Author Organization [employer] Address [address] [facility] 7t [place] [address] Care Team Providers Care Transformation Manager Name Role Phone Kristi Warren Primary Care Provider [phone] Reason for Visit * Reason Onset Date Comments Med Refill 04/12/2023 Encounter Details Date Type Department Care Team ([facility] st Contact Info) Description 04/12/2023 Telephone [facility] [address] [place] [address] Kristi Warren ANP [address] [place] [address] Med Refill Social History Tobacco Use Types [...] Description 08/21/2025 9:00 AM EST Office Visit [facility] [address] [place] [address] Kristi Warren ANP [address] [place] [address] documented as of this encounter Visit Diagnoses Not on filedocumented in this encounter Care Teams Transformation Manager Relationship Specialty Start Date End Date Kristi Warren ANP [address] [place] [address] PCP - General Family Medicine 03/24/20 [facility] 08/09/24 12/19/24 [facility] 12/09/24 documented as of this encounter
--- OUTSIDE RECORDS SUMMARY | 2025-06-30 18:22 | XMS_ITS | Encounter Summary ---
Author Organization [facility], Address [address] [place] [address] Phone Care Team Providers Care Electroplating Sales Representative Name Role Phone Unavailable Primary Care Provider Unavailabl e Encounter Details Date Type Department Care Team (Late st Contact Info) Description 07/30/2024 Documentation Only [facility], - Angel Caicedo [address] [place] [phone] Iona Salas [address] [place] [address] Social History Tobacco Use Types [...]
--- OUTSIDE RECORDS SUMMARY | 2025-06-30 18:22 | XMS_ITS | Encounter Summary ---
Author Organization [employer] Address [address] [facility] [address] 7t [place] [address] Care Team Providers Care Repairer Wood Furniture Name Role Phone Kristi Warren Primary Care Provider [phone] Encounter Details Date Type Department Care Team (Late st Contact Info) Description 05/23/2025 Orders Only [facility]INE [address] [place], [place] [phone] Kristi Warren ANP [address] [place] [address] Social History Tobacco Use Types Packs/Day Years [...] Description 08/21/2025 9:00 AM EST Office Visit [facility]INE [address] [place] [address] Kristi Warren ANP [address] [place] [address] documented as of this encounter Goals Goal [...] documented as of this encounter Care Teams Repairer Wood Furniture Relationship Specialty Start Date End Date Kristi Warren ANP [address] [place] [address] PCP - General Family Medicine 03/24/20 [facility] 12/09/24 documented as of this encounter
--- OUTSIDE RECORDS SUMMARY | 2025-06-30 18:22 | XMS_ITS | Encounter Summary ---
Author Organization [facility], Address [address] [place] [address] Phone Care Team Providers Care Touch Up Carver Name Role Phone Unavailable Primary Care Provider Unavailabl e Encounter Details Date Type Department Care Team (Late st Contact Info) Description 01/21/2022 Documentation Only [facility], [address] [place] [address] Jt Ochoa PA [address] [place] [address] Social History Tobacco Use Types [...]
--- OUTSIDE RECORDS SUMMARY | 2025-06-30 18:22 | XMS_ITS | Encounter Summary ---
Author Organization [employer] Address [address] [facility] [address] 7[address] [place] [address] Care Team Providers Care Air Bag Buffer Name Role Phone Kristi Warren Primary Care Provider [phone] Encounter Details Date Type Department Care Team (Late st Contact Info) Description 08/15/2024 Telephone [facility] MEDICINE [address] [place], [place] [phone] Kristi Warren ANP [address] [place] [address] Social History Tobacco Use Types Packs/Day Years [...] 11:11 AM EST TC from Viktoria William PROCESS ENGINEERING INTERN of pt stated that pt doesn't have no more meds due to pt is taking doseof trazodone of 7 days in 1 night also taking a lot of gabapentin in a Day and regular medication pt is crushing them and put in on sink is no taking none of his medication. Pt used [facility] and he is not due until August 30. [facility] requesting a call from PCP to discuss pt medication. PCP DR. Warren documented in this encounter Plan of Treatment Upcoming Encounters Date Type Department Care Team (Late st Contact Info) Description 08/21/2025 9:00 AM EST Office Visit [facility]INE [address] [place], [place] [phone] Kristi Warren ANP [address] [place] [address] documented as of this encounter Goals Goal [...] documented as of this encounter Care Teams Air Bag Buffer Relationship Specialty Start Date End Date Kristi Warren ANP [address] [place] [address] PCP - General Family Medicine 03/24/20 [facility] 08/09/24 12/19/24 [facility] 12/09/24 documented as of this encounter
--- OUTSIDE RECORDS SUMMARY | 2025-06-30 18:22 | XMS_ITS | Encounter Summary ---
Author Organization [facility], Address [address] [place] [address] Phone Care Team Providers Care Forge Shop Machine Repairer Name Role Phone Unavailable Primary Care Provider Unavailabl e Encounter Details Date Type Department Care Team (Late st Contact Info) Description 01/10/2024 Documentation Only [facility], [address] [place] [address] Iona Salas [address] [place] [address] Social History Tobacco Use Types [...]
--- OUTSIDE RECORDS SUMMARY | 2025-06-30 18:22 | XMS_ITS | Patient Health Record ---
Author Organization [facility] Address [address] [place] [address] Care Team Providers Care Family Specialist Name Role Phone Kristi Warren Primary Care Provider Fan Simons Unavailable [phone] Allergies No Known Allergies Reason For Referral [...] Problem Acquired hammer toe of right foot ([id number] 05) Other hammer toe(s) (acquired), right foot (M20.41) Active confirmed Problem Type 2 diabetes mellitus with peripheral angiopathy (654922471) Type 2 diabetes mellitus with diabetic peripheral angiopathy without gangrene (E11.51) Active confirmed Problem Acquired hammer toe of left foot ([id number] 03) Other hammer toe(s) (acquired), left foot (M20.42) Active confirmed Plan Of Treatment Pending Test Test Name Order Date 06138-UIEQPDO NAIL, 6 OR MORE 09/14/2020 28073-BRGYISF NAIL, 6 OR MORE 12/14/2020 18038-LOSMDVS NAIL, 6 OR MORE 02/22/2021 03370-EDHWTQZ NAIL, 6 OR MORE 04/29/2021 40948-CCZQNBV NAIL, 6 OR MORE 08/11/2021 89459-ZGQVCLD NAIL, 6 OR MORE 10/20/2021 34035-OMDHIZT NAIL, 6 OR MORE 12/30/2021 24593-APWGHPX NAIL, 6 OR MORE 03/23/2022 66635-XSEDHML NAIL, 6 OR MORE 06/06/2022 55400-SMMH SKIN LESIONS, OVER 4 06/06/20 22 84217-EGXW SKIN LESIONS, OVER 4 12/31/19 22 02975-LCXR SKIN LESIONS, OVER 4 03/23/20 22 88438-PQHZ SKIN LESIONS, OVER 4 10/20/19 22 15973-UHEO SKIN LESIONS, OVER 4 08/11/20 21 18198-KAQI SKIN LESIONS, OVER 4 04/29/20 21 94497-BZQT SKIN LESIONS, OVER 4 02/23/20 21 18028-IYBG SKIN LESIONS, OVER 4 12/15/19 21 65489-TCKE SKIN LESIONS, OVER 4 09/14/20 20 Insurance Providers Payer Name Payer Address Payer Phone Subscriber Number Group Number Insured Name Patient Relationship to Insured Coverage Start Date Coverage End Date [facility] [employer] Claims [address] [place] [id number] [phone] [id number] Albert Baeza Self - patient is the insured Medical (General) History Medical History History ICD Code Diabetic Surgical History Surgery Date(Month/Year) back surgery Hospitalization History Reason Date(Month/Year) [facility]- swollen legs
--- OUTSIDE RECORDS SUMMARY | 2025-06-30 18:22 | XMS_ITS | Encounter Summary ---
Author Organization [facility], Address [address] [place] [address] Phone Care Team Providers Care Activities Director Name Role Phone Unavailable Primary Care Provider Unavailabl e Reason for Visit * Reason Comments Med Refill Encounter Details Date Type Department Care Team (Late st Contact Info) Description 10/20/2024 Refill [facility], [address] [place] [address] Jt Ochoa PA [address] [place] [address] Social History Tobacco Use Types [...]
--- OUTSIDE RECORDS SUMMARY | 2025-06-30 18:22 | XMS_ITS | Encounter Summary ---
Author Organization [facility], Address [address] [place] [address] Phone Care Team Providers Care V Block Saw Operator Name Role Phone Unavailable Primary Care Provider Unavailabl e Encounter Details Date Type Department Care Team (Late st Contact Info) Description 07/30/2024 Documentation Only [facility], - Angel Caicedo [address] [place] [phone] Iona Salas [address] [place] [address] Social History Tobacco Use Types [...]
--- OUTSIDE RECORDS SUMMARY | 2025-06-30 18:22 | XMS_ITS | Encounter Summary ---
Author Organization [facility], Address [address] [place] [address] Phone Care Team Providers Care Terminal Clerk Name Role Phone Unavailable Primary Care Provider Unavailabl e Encounter Details Date Type Department Care Team (Late st Contact Info) Description 10/07/2022 Orders Only [facility], [address] [address] Jt Ochoa PA [address] [place] [address] Stage 3a chronic kidney disease [...] 1:48 PM EST) Iron 70 (45-160) MCG/DL [facility] UIBC 153 (110-370) MCG/DL [facility] TIBC 223 (155-530) MCG/DL [facility] Iron Saturation (TSat) 31 (20-55) % [facility] Comment: Testing performed or reported by [facility], a Service of [facility], [address] [place] [address] Elvira Lopez MD, Silverware Cleaner [facility]# [id number] Blood specimen (specimen) Venous blood / Unknown 10/25/2022 1:48 PM EST 10/25/2022 1:54 PM EST Jt GAL[facility] BLOOD ORDERABLES Final Re sult [facility] * (ABNORMAL) Hemoglobin A1c (10/25/2022 1:48 PM EST) Hemoglobin A1C 6.0(H) (4.0-5.6) % [facility] Comment: MONITORING: In known diabetic patients, hemoglobin A1c targets should be discussed with health care provider. DIAGNOSTIC USE: The [place] [employer] (ADA) and the World Health [...] Supplement 1 Testing performed or reported by [facility], a Service of [facility], [address] [place] [address] Elvira Lopez MD, Silverware Cleaner CLIA# [id number] Blood specimen (specimen) Venous blood / Unknown 10/25/2022 1:48 PM EST 10/25/2022 1:54 PM EST Jt GAL[facility] BLOOD ORDERABLES Final Re sult Performing Organization Address [facility] de Phone Number [facility] * (ABNORMAL) PTH, intact (10/25/2022 1:48 PM EST) PTH, Intact 105(H) (15-65) PG/ML [facility] Comment: Testing performed or reported by [facility], a Service of [facility], [address] [place] [address] Elvira Lopez MD, Silverware Cleaner CLIA# [id number] Blood specimen (specimen) Venous blood / Unknown 10/25/2022 1:48 PM EST 10/25/2022 1:54 PM EST Jt GAL[facility] BLOOD ORDERABLES Final Re sult Performing Organization Address [facility] Co de Phone Number [facility] * Urine Protein / creatinine ratio (10/25/2022 1:48 PM EST) [facility] Protein/Creatin e Ratio 0.14 (0-0.2) [facility] Protein, Urine 13 MG/DL [facility] Creatinine, Urine 96.2 MG/DL [facility] Comment: Testing performed or reported by [facility], a Service of [facility], [address] [place] [address] Elvira Lopez MD, Silverware Cleaner [facility]# [id number] Urine specimen (specimen) Urine specimen obtained by clean catch procedure / Unknown 10/25/2022 1:48 PM EST 10/25/2022 1:54 PM EST Jt [facility] URINE ORDERABLES Final Re sult [facility] * (ABNORMAL) Urinalysis, Complete w/reflex to Culture (10/25/2022 1:48 PM EST) [facility] Appearance LIGHT YELLOW [facility] Comment:CLEAR Specific Kenneth 1.014 (1.002-1. 030) [facility] pH Urine 6.0 (5.0-8.0) [facility] Albumin, Urine TRACE(A) (NEG) [facility] Glucose, Ur NEGATIVE (NEG) [facility] Ketones, Urine NEGATIVE (NEG) [facility] Bilirubin Urine NEGATIVE (NEG) [facility] Hemoglobin Presence in Urine NEGATIVE (NEG) [facility] Nitrite, Urine NEGATIVE (NEG) [facility] Leukocyte Esterase Urine NEGATIVE (NEG) [facility] Urobilinogen Urine NORMAL (NORM) MG/DL [facility] WBC, Urine 1 (0-5) /HPF [facility] RBC, Urine 1 (0-3) /HPF [facility] Mucus, Urine SLIGHT /LPF [facility] Hyaline Casts, Urine 4(H) (0-2) LPF [facility] Clarity CLEAR (CLEAR) [facility] CULTURE INDICATED CULTURE NOT INDICATED [facility] Comment: Testing performed or reported by [facility], a Service of [facility], [address] [place] [address] Elvira Lopez MD, Silverware Cleaner [facility]# [id number] Urine specimen (specimen) Urine specimen obtained by clean catch procedure / Unknown 10/25/2022 1:48 PM EST 10/25/2022 1:54 PM EST us Jt [facility] URINE ORDERABLES Final Re sult [facility] * (ABNORMAL) CBC and differential (10/25/2022 1:48 PM EST) White Blood Cells 10.3 (4.0-11.0 ) K/MM3 [facility] RBC 4.06(L) (4.70-6.1 0) M/MM3 [facility] Hgb 13.7 (13.7-17. 1) GM/DL [facility] Hematocrit 42.3 (40.5-50. 0) % [facility] MCV 104.2(H) (80.0-94. 0) FL [facility] MCH 33.7 (27.0-34. 0) PG [facility] MCHC 32.4(L) (33.0-37. 0) g/dL [facility] Platelets 232 (150-460) K/MM3 [facility] RDW-SD 50.7(H) (<47.0) FL [facility] MPV 9.8 (9.4-12.4 ) FL [facility] nRBC Count 0.0 #/100 WBC'S [facility] NRBC Absolute 0.0 K/MM3 [facility] Neutrophils Abs Auto 6.6 (1.3-7.0) K/MM3 [facility] Lymphocytes Relative 2.6 (0.8-3.1) K/MM3 [facility] Monocytes 0.7 (0.4-1.3) K/MM3 [facility] Eosinophils Relative 0.2 (0.0-0.4) K/MM3 [facility] Basophil ABS 0.1 (0.0-0.1) K/MM3 [facility] Granulocytes Absolute 0.1 K/MM3 [facility] Neutrophils % Auto 64.3 (44-76) % [facility] Lymphs 25.4 (15-43) % [facility] Monocytes Absolute 7.0 (4.5-10.5 ) % [facility] Eosinophils 2.3 (0-6) % [facility] Basophils Relative 0.5 (0-2) % [facility] Immature Granulocytes 0.5 % [facility] Comment: Testing performed or reported by [facility], a Service of [address] [address] Elvira Lopez MD, Silverware Cleaner CLIA# [id number] Blood specimen (specimen) Venous blood / Unknown 10/25/2022 1:48 PM EST 10/25/2022 1:54 PM EST Jt G[facility] BLOOD ORDERABLES Final Re sult Performing Organization Address City/[facility] Co de Phone Number [facility] * (ABNORMAL) Renal function panel (10/25/2022 1:48 PM EST) Pathologist [facility] Glucose 116(H) (70-99) MG/DL [facility] BUN 25(H) (8-23) MG/DL [facility] Creatinine 1.7(H) (0.7-1.2) MG/DL [facility] Sodium 139 (133-145) MMOL/L [facility] Potassium 4.5 (3.6-5.2) MMOL/L [facility] Chloride 100 (98-107) MMOL/L [facility] Bicarbonate (CO2) 33(H) (22-29) MMOL/L [facility] Anion Gap 6 (4-17) [facility] Albumin 4.2 (3.4-4.8) GM/DL [facility] Calcium 9.5 (8.6-10.5) MG/DL [facility] Phosphorus, Serum 3.8 (2.5-4.5) MG/DL [facility] Est GFR Non 44 ML/MIN/1.7 3 M2 [facility] Comment: Creatinine based estimated glomerular filtration (eGFR) in adults is calculated using the National Kidney Foundation recommended 2020 CKD-EPI equation. Estimates GFR from serum creatinine, age and sex. Testing performed or reported by [facility], a Service of [address] [address] Elvira Lopez MD, Silverware Cleaner CLIA# [id number] Blood specimen (specimen) Venous blood / Unknown 10/25/2022 1:48 PM EST 10/25/2022 1:54 PM EST Jt [facility] BLOOD ORDERABLES Final Re sult Performing Organization Address [facility] Co de Phone Number [facility] documented in this encounter Visit Diagnoses Diagnosis Stage 3a chronic kidney disease (HCC) documented in this encounter
== END 2025-06-30 16:24 | disposition home or self-care (01) ==
LOC: HO.MRI 16:23
PROVIDERS: Visit Provider Anesthesiology
DX: M54.12 Radiculopathy, cervical region (principal); M47.812 Spondylosis without myelopathy or radiculopathy, cervical region; M48.02 Spinal stenosis, cervical region
CPT/HCPCS: 72141

== ENCOUNTER → 2025-06-30 16:24 | Outpatient (BNV) | payer OTHER, SELFPAY | PROVIDERS: Visit Provider Radiology Diagnostic Radiology | DX: M47.22 Other spondylosis with radiculopathy, cervical region (principal) | CPT/HCPCS: 72141 ==

== ENCOUNTER 2025-07-01 11:50 | Outpatient (REF) | payer OTHER, SELFPAY ==
[2025-07-01 14:18] LABS: Hematocrit 46.9 % (42.0-52.0); Hemoglobin 16.0 g/dl (14.0-18.0); Mean Corpuscular HGB Conc 34.1 g/dl (31.0-36.0); Mean Corpuscular Hemoglobin 34.5 pg (27.0-33.0); Mean Corpuscular Volume 101.1 fL (80.0-98.0); NRBC Abs Auto 0.000 X10*3/uL (0.0-0.012); NRBC Pct Auto 0.0 /100WBC (0.0-0.2); Platelet Count 202 X10*3/uL (160-400); Red Blood Count 4.64 X10*6/uL (4.60-5.80); White Blood Count 6.8 X10*3/uL (4.8-10.8)
[2025-07-01 14:52] LABS: Lipase 33 U/L (8-78)
[2025-07-01 15:16] LABS: Folate 6.2 ng/mL (> or = 4.0); Vitamin B12 271 pg/mL (200-900)
[2025-07-07 16:59] LABS: Vitamin D 25-OH, D2 25 ng/mL; Vitamin D 25-OH, D3 24 ng/mL; Vitamin D 25-OH, Total 49 ng/mL (30-100)
== END 2025-07-01 11:51 | disposition home or self-care (01) ==
LOC: HO.LAB 11:50
PROVIDERS: PCP Nurse Practitioner Primary Care; Referring Provider Nurse Practitioner Primary Care; Visit Provider Nurse Practitioner Family
DX: K52.9 Noninfective gastroenteritis and colitis, unspecified (principal); E55.9 Vitamin D deficiency, unspecified; K21.9 Gastro-esophageal reflux disease without esophagitis; R10.9 Unspecified abdominal pain; K59.00 Constipation, unspecified
CPT/HCPCS: 36415; 82306; 82607; 82746; 83690; 84443; 85027; 99212

== ENCOUNTER 2025-07-01 11:50 | Outpatient (AMB) | payer OTHER, SELFPAY ==
--- NOTE | 2025-07-01 11:57 | A.OFFVIS_ITS ---
Vital Signs 07/01/25 12:09 Height 5 ft 6 in Weight 146 lb BMI 23.6 BP 103/61 Blood Pressure Location Lt brachial Position Sitting Pulse 65 Pulse Oximetry (%) 92 Oxygen Delivery Method Room Air Intake Visit Reasons: [facility] mgmt. BHANU 09/2022. Abn W/L. Intake Note: Patient follow up for [facility]IC, bhanu was 09/2022, abnormal weight loss. Patient cc: diarrhea and better appetite. Denies any other GI issues. Video Producer Required: Yes Video Producer Name: [facility] Interpeter Accompanied by: Family/Other Allergies No Known Allergies (No Known Allergies*) Allergy (Verified 07/17/25 15:02) HPI HPI [facility] mgmt. BHANU 09/2022. Abn W/L.: Details: LAST VISIT: Screen for colon cancer Discussed with patient what to expect before during and after the procedure. Due to hypoxic event during anesthesia in 2018 patient will be sent to see Cardiology for risk stratification before the procedure. Patient denies any cardiac symptoms right now, however he is not very active. Denies any chest pain or shortness of breath with or without exertion. Denies any presyncope, syncope, PND. Patient reports that he has an appointment end of this month with publication director. Discussed with patient how to prep the day before the procedure. Went over clear liquid diet which is understandable to patient. Patient reports to be little constipated from times to time. Encouraged to take docusate sodium and Senokot on a daily basis. Chronic idiopathic constipation Reports constipation. Patient states that this is ongoing and nothing new. Patient was encouraged to take Senokot and docusate sodium daily. Specially that he will be going for colorectal screening and will need to have good bowel prep I will see him after the procedure, sooner on as needed basis. Patient is agreeable to this plan and verbalizes understanding of instructions. He was given the opportunity to ask questions and all questions answered. ? Thank for allowing participate his care Plan Medications New bisacodyl (Dulcolax (bisacodyl)) take 2 tabs at noon the day before your colonoscopy 10 mg (2 x 5 mg) PO ONCE 1 day 2 tabs 0RF Z12.11 Changed From docusate sodium (Colace) 100 mg PO DAILY To docusate sodium (Colace) 100 mg PO BEDTIME 90 caps 2RF From sennosides 17.2 mg PO DAILY PRN constipation To sennosides 8.6 mg PO BEDTIME 90 tabs 2RF constipation TODAY'S VISIT: Patient never went for colonoscopy. He continues to have occasional postprandial loose stools. Patient has been following up with Cardiology in the past couple years. Last office visit was in May. We will ask for risk stratification. Looks like patient has been doing fairly well. Denies any chest pain or shortness of breath. Denies any issues with anesthesia in the past. No history of sleep apnea. Patient currently is on low-dose aspirin. Patient denies melena, hematochezia, unintentional weight loss or ribbon like stools. Patient denies dyspepsia, dysphagia or odynophagia. 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 Mother No problems noted. Social History Household Members: None Housing: Apartment Do you presently have visiting nurse or other home services: Yes (ANESTHESIOLOGY PHYSICIAN ASSISTANT) Alcohol intake: never Comment: sitter in room Patient Tobacco Use Status: Current everyday Tobacco user Tobacco use type: Cigarette Cigarettes Per Day: 1 Advance Directives Date on File: 04/12/24 service: No Current occupational status: retired and disabled Current occupation: rt hand Review of Systems Const Denies weight gain and Denies weight loss ENT Reports no additional complaints, Denies dysphagia and Denies odynophagia Card Reports no additional complaints Resp Reports no additional complaints GI Denies abdominal pain, Denies belching, Denies melena, Denies bloating, Denies change in bowel habits, Denies dysphagia, Denies excessive flatus, Denies dyspepsia, Denies heartburn, Denies diarrhea, Reports loose stools, Denies nausea, Denies odynophagia and Denies vomiting Reports no additional complaints Musc Reports no additional complaints Neuro Reports no additional complaints Psych Reports no additional complaints Endo Reports no additional complaints Physical Exam Vital Signs: Last Vital Signs Pulse 65 07/01/25 12:09 BP 103/61 07/01/25 12:09 Pulse Ox 92 07/01/25 12:09 Oxygen Delivery Method Room Air 07/01/25 12:09 BMI result Body Mass Index 23.6 Const General: healthy appearing, no acute distress and well developed Nutritional Appearance: well nourished Orientation/consciousness: patient oriented x3 Resp Effort & Inspection: normal respiratory effort, able to speak in complete sentences, no tracheal deviation and symmetric chest movement Auscultation: clear to auscultation bilaterally Cardio Rate: regular rate GI Inspection: Yes normal to inspection and No distended Palpation (GI): Soft to palpation, not firm, nontender and No hepatosplenomegaly present Auscultation: normal bowel sounds General: Yes no CVA tenderness Back/Spine/Pelvis Back: no CVA tenderness Skin General skin exam: elasticity normal, turgor normal and dry skin Neuro General: patient oriented x3 Psych Appearance: grossly normal Mental Status: mental status grossly normal Assessment & Plan Assessment & Plan (1) Postprandial diarrhea: Code(s): K52.9 - Noninfective gastroenteritis and colitis, unspecified (2) Screen for colon cancer: Code(s): Z12.11 - Encounter for screening for malignant neoplasm of colon Plan Patient will be sent for colonoscopy. Will send message to provider from Cardiology about risk stratification before procedure. He will get blood work done, vitamin B12, folate, vitamin-D, CBC, thyroid study and lipase. I will see patient after the procedure. Patient is agreeable to plan of care and verbalizes understanding of instructions. They were given the opportunity to ask questions and all questions answered. Thank you for allowing me to participate in her care Orders: Orders Vitamin B12 and Folate 07/01/25 R19.7 - Diarrhea, unspecified Vitamin D 25-OH (D2 and D3) 07/01/25 E55.9 - Vitamin D deficiency, unspecified Complete Blood Count no Diff 07/01/25 K21.9 - Gastro-esophageal reflux disease without esophagitis TSH reflex Free T4 07/01/25 K59.00 - Constipation, unspecified Lipase 07/01/25 R10.9 - Unspecified abdominal pain Referrals GI Procedure Notification Z12.11 - Encounter for screening for malignant neoplasm of colon Medications: New bisacodyl (Dulcolax (bisacodyl)) take 4 tabs at noon the day before your colonoscopy 20 mg (4 x 5 mg) PO ONCE 4 tabs 0RF constipation 1 day Z12.11 - Encounter for screening for malignant neoplasm of colon polyethylene glycol 3350 (Miralax) As directed by gastroenterology department at [facility] 238 grams PO ONCE 238 grams 0RF Z12.11 - Encounter for screening for malignant neoplasm of colon methylcellulose (laxative) (Citrucel) take it with full glass of water 500 mg PO DAILY 90 tabs 2RF K59.00 - Constipation, unspecified Discontinued testosterone apply 3 pump daily alternating arms. Rub in until dry - aplique 3 bombas diarias alternando brazos. Frote hasta que se seque. Discontinued Reason: Doctor's Order 3 pumps transdermal DAILY 28 days 150 grams 5RF E29.1 - Testicular hypofunction Coding Level of Care Code Est Pt Level 3 (16907) Diagnoses Postprandial diarrhea K52.9 Screen for colon cancer Z12.11 Time Spent (min) 30 Comment 20 minutes spent with patient and additional 10 minutes spent reviewing his records
[2025-07-01 12:09] VITALS: BP 103/61; PULSE 65; O2SAT 92; BMI 23.6
--- OUTSIDE RECORDS SUMMARY | 2025-07-01 14:42 | XMS_ITS | Encounter Summary ---
Author Organization [employer] [facility] Address [address] [facility] 7t [place] [address] Care Team Providers Care Centerless Grinding Machine Adjuster Name Role Phone Kristi Warren Primary Care Provider [phone] Encounter Details Date Type Department Care Team (Late Contact Info) Description 10/19/2022 Orders Only [facility] MEDICINE [address] [place] [phone] Mona Porras LPN Social History Tobacco Use [...] 9:00 AM EST Office Visit [facility] [address] [place] [address] Kristi Warren ANP [address] [place], [place] [phone] documented as of this encounter Procedures Procedure Name Priority Date/Time Associated Diagnosis Comments XR FOOT 1-2 VIEWS RIGHT Routine 11/07/2022 11:42 AM EST documented in this encounter Results * XR Foot 1-2 Views Right (11/07/2022 11:42 AM EST) Anatomical Region Laterality Modality Lower Extremities, Foot Right [facility] 11/07/2022 11:4 2 AM EST Narrative 11/09/2022 8:38 PM EST [address] [address] XRay Report Signed Patient: Albert Baeza MR#: [id number] : 1950 Acct:[id number] Age/Sex: 72 / M ADM Date: 11/07/22 Loc: HO.XRAY Attending Dr: Ophelia Hubbard NP Ordering Physician: OPHELIA HUBBARD NP Date of Service: 11/07/22 Procedure(s): XR foot RT 2V Accession Number(s): [id number] cc: OPHELIA HUBBARD NP EXAMINATION: XR FOOT, [...] MD in OV> 11/09/222034 DD/ 1142 TD/TT: Network Operations Manager: ALBERT Procedure Note Donotuseinterpreter, Image - 11/09/[address] [address] XRay Report Signed Patient: Albert BaezaMR#: [id number] : 1950Acct:[id number] Age/Sex: 72 / MADM Date: 11/07/22 Loc: HO.TYRONE Attending Dr: Ophelia Hubbard NP Ordering Physician: OPHELIA HUBBARD NP Date of Service: 11/07/22 Procedure(s): XR foot RT 2V Accession Number(s): [id number] cc: OPHELIA HUBBARD NP EXAMINATION: XR FOOT, [...] MD in OV> 11/09/222034 DD/ 1142 TD/TT: Network Operations Manager: ALBERT Authorkamille Provider Result Type Result Stat [facility] External Provider IMG XR PROCEDURES Edited Result - Final documented in this encounter Visit Diagnoses Not on filedocumented in this encounter Care Teams Centerless Grinding Machine Adjuster Relationship Specialty Start Date End Date Kristi Warren ANP [address] [place] [address] PCP - General Family Medicine 03/24/20 [facility] 08/09/24 12/19/24 [facility] 12/09/24 documented as of this encounter
--- OUTSIDE RECORDS SUMMARY | 2025-07-01 14:42 | XMS_ITS | Encounter Summary ---
Author Organization [employer] Address [address] [facility] 7t [place] [address] Care Team Providers Care Tool Lathe Operator Name Role Phone Kristi Warren Primary Care Provider [phone] Reason for Visit * Reason Onset Date Comments Referral 11/17/2022 Encounter Details Date Type Department Care Team ([facility] st Contact Info) Description 11/17/2022 Telephone [facility] MEDICINE [address] [place] [address] Kristi Warren ANP [address] [place] [address] Referral Social History Tobacco Use Types Packs/Day [...] from pt requesting a referral for a agency sales representative to have toe nails cut Please contact pt at [phone] documented in this encounter Plan of Treatment Upcoming Encounters Date Type Department Care Team (Late st Contact Info) Description 08/21/2025 9:00 AM EST Office Visit [facility] MEDICINE [address] [place] [address] Kristi Warren ANP [address] [place] [address] documented as of this encounter Visit Diagnoses Not on filedocumented in this encounter Care Teams Tool Lathe Operator Relationship Specialty Start Date End Date Kristi Warren ANP [address] [place] [address] PCP - General Family Medicine 03/24/20 [facility] 08/09/24 12/19/24 [facility] 12/09/24 documented as of this encounter
--- OUTSIDE RECORDS SUMMARY | 2025-07-01 14:42 | XMS_ITS | Encounter Summary ---
Author Organization [employer] Address [address] [facility] [address] [facility] [address] 7[address] [place] [address] Care Team Providers Care Clothes Designer Name Role Phone Kristi Warren Primary Care Provider [phone] Encounter Details Date Type Department Care Team (Late st Contact Info) Description 07/01/2025 Orders Only GENERIC EXTERNAL DATA DEPARTMENT Provider, Generic External Data Social History Tobacco Use Types Packs/Day Years [...] 9:00 AM EST Office Visit [facility] MEDICINE [address] [place], [place] [phone] Kristi Warren, ANP [address] [place] [address] documented as of this encounter Goals Goal Patient Goal Type Associated Problems Recent Progress Patient-Stated? Author Blood Pressure < 140/90 Blood Pressure 104/70(2024 1:09 PM EDT) No Mike Harris, Kathleen Hemoglobin A1c < 7.5 Result Component 6.5( 3:05 PM EDT) No Mike Harris PharmD documented as of this encounter Procedures Procedure Name Priority Date/Time Associated Diagnosis Comments CBC Routine 07/01/2025 1:19 PM EDT documented in this encounter Results * (ABNORMAL) CBC (07/01/2025 1:19 PM EDT) White Blood Count 6.8 4.8 - 10.8 X10*3/uL [facility] Red Blood Count 4.64 4.60 - 5.80 X10*6/uL [facility] Hemoglobin 16.0 14.0 - 18.0 g/dl [facility] Hematocrit 46.9 42.0 - 52.0 % [facility] Mean Corpuscular Volume 101.1(H) 80.0 - 98.0 fL [facility] Mean Corpuscular Hemoglobin 34.5(H) 27.0 - 33.0 pg [facility] Mean Corpuscular HGB Conc 34.1 31.0 - 36.0 g/dl [facility] Red Cell Distribution Width 14.0 11.0 - 16.0 % [facility] Platelet Count 202 160 - 400 X10*3/uL [facility] Mean Platelet Volume 10.0 9.4 - 12.4 fL [facility] NRBC Pct Auto 0.0 0.0 - 0.2 /100WBC [facility] NRBC Abs Auto 0.000 0.0 - 0.012 X10*3/uL [facility] 07/01/2025 1:19 PM EDT 07/01/2025 1:19 PM EDT us Generic External Data Provider LAB BLOOD ORDERAB LES Final Result Performing Organization Address City/State/[facility] Co de Phone Number [facility] [address] [place] [address] [phone] documented in this encounter Visit Diagnoses Not on filedocumented in this encounter Additional Health Concerns Assessment Noted Time PHQ-9 Depression Total Score: 0 01/08/20 1:15 PM EDT documented as of this encounter Care Teams Clothes Designer Relationship Specialty Start Date End Date Kristi Warren ANP [address] [place] [address] PCP - General Family Medicine 03/24/20 [facility] 12/09/24 documented as of this encounter
--- OUTSIDE RECORDS SUMMARY | 2025-07-01 14:42 | XMS_ITS | Encounter Summary ---
Author Organization [employer] Address [address] [facility] 7t [place] [address] Care Team Providers Care Taker Down Name Role Phone Kristi Warren Primary Care Provider [phone] Reason for Visit * Reason Comments Med Refill Encounter Details Date Type Department Care Team (Late Contact Info) Description 11/18/2022 Refill [facility] MEDICINE [address] [place], [place] [phone] Kristi Warren ANP [address] [place], [place] [phone] Type 2 diabetes mellitus with diabetic nephropathy, with long-term current use of insulin ([facility]) (Primary Dx) Social History Tobacco Use Types [...] 08/21/2025 9:00 AM EST Office Visit [facility] MEDICINE [address] [place] [address] Kristi Warren ANP [address] [place] [address] documented as of this encounter Visit Diagnoses Diagnosis Type 2 diabetes mellitus with diabetic nephropathy, with long-term current use of insulin ([facility])- Primary documented in this encounter Care Teams Taker Down Relationship Specialty Start Date End Date Kristi Warren ANP [address] [place] [address] PCP - General Family Medicine 03/24/20 [facility] 08/09/24 12/19/24 [facility] 12/09/24 documented as of this encounter
--- OUTSIDE RECORDS SUMMARY | 2025-07-01 14:42 | XMS_ITS | Encounter Summary ---
Author Organization [employer] Address [address] [facility] 7t [place] [address] Care Team Providers Care Rubber Stamp Die Inspector Name Role Phone Kristi Warren Primary Care Provider [phone] Encounter Details Date Type Department Care Team ([facility] Contact Info) Description 11/24/2022 Orders Only [facility] [address] [place], [place] [phone] Amalia Pierre LPN Social History Tobacco Use [...] Description 08/21/2025 9:00 AM EST Office Visit [facility] MEDICINE [address] [place] [address] Kristi Warren ANP [address] [place] [address] documented as of this encounter Visit Diagnoses Not on filedocumented in this encounter Care Teams Rubber Stamp Die Inspector Relationship Specialty Start Date End Date Kristi Warren ANP [address] [place] [address] PCP - General Family Medicine 03/24/20 [facility] 08/09/24 12/19/24 [facility] 12/09/24 documented as of this encounter
--- OUTSIDE RECORDS SUMMARY | 2025-07-01 14:43 | XMS_ITS | Encounter Summary ---
Author Organization [employer] Address [address] [place] [address] Care Team Providers Care Coating Supervisor Name Role Phone Kristi Warren Primary Care Provider [phone] Encounter Details Date Type Department Care Team (Late st Contact Info) Description 08/12/2024 Telephone [facility] MEDICINE [address] [place], [place] [phone] Kristi Warren ANP [address] [place] [address] Social History Tobacco Use Types Packs/Day Years [...] Description 08/21/2025 9:00 AM EST Office Visit [facility] MEDICINE [address] [place] [address] Kristi Warren ANP [address] [place] [address] documented as of this encounter Goals Goal [...] documented as of this encounter Care Teams Coating Supervisor Relationship Specialty Start Date End Date Kristi Warren ANP [address] [place] [address] PCP - General Family Medicine 03/24/20 [facility] 08/09/24 12/19/24 [facility] 12/09/24 documented as of this encounter
--- OUTSIDE RECORDS SUMMARY | 2025-07-01 14:43 | XMS_ITS | Encounter Summary ---
Author Organization [employer] Address [address] [facility] [address]t [place] [address] Care Team Providers Care Manual Lathe Operator Name Role Phone Kristi aWrren Primary Care Provider [phone] Reason for Visit * Reason Onset Date Comments Medication Question 07/15/2024 Encounter Details Date Type Department Care Team ([facility] st Contact Info) Description 07/15/2024 Telephone [facility] MEDICINE [address] [place] [address] Kristi Warren ANP [address] [place] [address] Medication Question Social History Tobacco Use Types [...] medications. The pt was recently discharged from [facility] after being in the hospital for a pneumothorax. Viktoria is concerned with the medications that the pt was discharged with and is apprehensive in regards to giving them to the pt. RN spoke with OMERO Song, who is in agreement that the pt can be scheduled for a [facility] appt. This will be forwarded to [facility] for scheduling. * Telephone Encounter - Trace Castaneda - 07/15/2024 8:46 AM EDT Tc from Viktoria from [facility] requesting a call back to compare medications and to see if the provider would like the patient to continue the medication documented in this encounter Plan of Treatment Upcoming Encounters Date Type Department Care Team (Late st Contact Info) Description 08/21/2025 9:00 AM EST Office Visit [facility] MEDICINE [address] [place] [address] Kristi Warren ANP [address] [place] [address] documented as of this encounter Goals Goal [...] documented as of this encounter Care Teams Manual Lathe Operator Relationship Specialty Start Date End Date Kristi Warren ANP [address] [place] [address] PCP - General Family Medicine 03/24/20 [facility] 08/09/24 12/19/24 [facility] 12/09/24 documented as of this encounter
--- OUTSIDE RECORDS SUMMARY | 2025-07-01 14:43 | XMS_ITS | Clinical Summary ---
Author Organization [employer] Address [address] [place] [address] Care Team Providers Care Master Control Engineer Name Role Phone Kristi Warren BATSHEVA Primary Care Provider [phone] Allergies No known active allergies Medications * [...] tablet 3 08/07/20 24 Active Continuous Glucose Ge[employer] Powerplant Supervisor (FreeStyle Sher[place] 2 [place]) deviceIndication s:Type 2 diabetes mellitus with stage 3 chronic kidney disease, with long-term current use of insulin, unspecified whether stage 3a or 3b CKD (CMS/HCC) USE DIRECTED SCAN EVERY 8 HOURS 1 each 08/07/20 24 Active Blood Glucose Monitoring Suppl (FreeStyle [place] Lite) w/Device kit USE DIRECTED TO TEST BLOOD SUGAR THREE TIMES DAILY 1 kit 10/30/20 24 Active naloxone (Narcan) 4 mg/0.1 mL nasal sprayIndications :Misuse of medication,intermodal dispatcher (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 Change sensor [...] intervention , Patient to reach out to [facility] team as needed, Comply with medication , [...] June 2024 which was ordered by his line and frame poler. Results did not show atrial fibrillation. - the patient was seen by a line and frame poler while int hospital and telemetry tracing showed atrial fibrillation per line and frame poler. - the patient was started on eliquis but it was not continued after he was discharged from the intermediate for unclear reasons. - due to increase risk of fall, will consult with line and frame poler. The patient is taking aspirin and cilostazol for PAD. Will consult with line and frame poler. Metabolic encephalopathy 08/06/2024 Assessment & Plan (08/06/2024 [...] to low BP. - will consult with line and frame poler for optimal BP management plan. Mood disorder 07/04/2017 Onychomycosis 07/04/2017 Osteoarthritis of right knee 07/04/2017 Tobacco dependence syndrome 07/04/2017 Stage 3 chronic kidney disease 07/04/2017 Overview (05/25/2023): Update for Diagnosis Load Retinopathy 05/29/2012 Encounters Date Type Department Care Team Description 07/01/2025 Orders Only GENERIC EXTERNAL DATA DEPARTMENT Provider, Generic External Data 06/23/2025 Refill [facility] [place] [address] Kristi Warren ANP Type 2 diabetes mellitus with stage 3 chronic kidney disease, with long-term current use of insulin, unspecified whether stage 3a or 3b CKD ([facility]); Insomnia, unspecified type 06/18/2025 Telephone [facility] [place] [address] Kristi Warren ANP Durable Medical Equipment 06/12/2025 1:00 PM EDT Office Visit [facility] [place] [address] Kristi Warren ANP Diabetic peripheral neuropathy ([facility]) (Primary Dx); Cervical stenosis of spine; Moderate protein-calorie malnutrition ([facility]); Frail elderly; Failed back surgical syndrome; Restless legs 06/12/2025 Travel 06/11/2025 Telephone [facility] [place] [address] Kristi Warren ANP Durable Medical Equipment 06/05/2025 Telephone [facility] [place] [address] Kristi Warren ANP Prior Authorization 06/02/2025 Refill [facility] [place] [address] Katiana Villarreal, RN Diabetic nephropathy associated with type 2 diabetes mellitus ([facility]) (Primary Dx) 05/27/2025 Orders Only GENERIC EXTERNAL DATA DEPARTMENT Provider, Generic External Data 05/26/2025 Telephone [facility] [place] [address] Kristi Warren ANP 05/23/2025 Orders Only [facility] [place] [address] Kristi Warren ANP 05/23/2025 Refill [facility] [place] [address] Beny Lentz MD Insomnia, unspecified type 05/20/2025 Orders Only [facility] [place] [address] Kristi Warren ANP Abnormal weight loss (Primary Dx) 05/20/2025 Telephone [place] [facility] [place] [facility] [address] ABD/PELVIS ORDER 05/19/2025 Refill [facility] [address] [place], [place] [address] [address] Kristi Warren ANP History of non-ST elevation myocardial infarction (NSTEMI) 05/12/2025 1:00 PM EDT Office Visit [address] [address] Kristi Warren ANP Neck pain (Primary Dx); Dry skin; Easy bruising; Fatigue, unspecified type; Anorexia; Moderate protein-calorie malnutrition (CMS/HCC) 05/12/2025 Travel 05/09/[address] [address] Kristi Warren ANP chart prep 05/09/[address] [address] Kristi Warren ANP Nurse Triage 04/29/[address] [address] Kristi Warren ANP Durable Medical Equipment 04/25/[address] [address] Kristi Warren ANP Insomnia, unspecified type 04/23/2025 Telephone [facility] Information [facility] [address] [place] [address] [phone] ABD/PELVIS ORDER 04/22/[address] [address] Kristi Warren ANP ER Follow-up; fyi 04/19/2025 Travel 04/18/[address] [address] Norma Campos, Kathleen 04/18/[address] [address] Kristi Warren ANP Nurse Triage 04/16/[address] [address] Norma Campos PharmD 04/15/2025 1:20 PM EDT Office Visit [facility] [address] [place] [phone] Amy Fry MD Paroxysmal atrial fibrillation (CMS/HCC) (Primary Dx) 04/15/2025 Orders Only GENERIC EXTERNAL DATA DEPARTMENT Provider, Generic External Data 04/15/[address] [address] Kristi Warren ANP Nurse Outreach; 911 dispatched 04/15/[address] [address] Kandace Harris bisque tile burner 04/15/2025 Travel 04/12/2025 Results Follow-Up [address] [address] Kristi Warren ANP POCT Glucose, POCT HGB A1C, Sed Rate by Modified W[place]gren, Additional followed-up results: 4 04/02/[address] [address] Kristi Warren ANP Durable Medical Equipment 04/01/2025 11:15 AM EDT Office Visit [address] [address] Kristi Warren ANP Diabetic nephropathy associated with type 2 diabetes mellitus (CMS/HCC) (Primary Dx); Essential hypertension; At risk for polypharmacy; Hypotension, unspecified hypotension type; Abnormal weight loss; Diarrhea, unspecified type; Callus between toes; Recurrent tinea pedis; Moderate protein-calorie malnutrition (CMS/HCC); Anorexia; Frail elderly; Incontinence of feces, unspecified fecal incontinence type; Severe protein-calorie malnutrition (CMS/HCC) 04/01/[address] [address] Kristi Warren ANP Insomnia, unspecified type 04/01/2025 Travel 04/01/[address] [address] Kristi Warren ANP Nurse Triage 03/31/[address] [address] Kristi Warren ANP Referral 03/31/2025 Orders Only GENERIC EXTERNAL DATA DEPARTMENT Provider, Generic External Data 03/31/2025 Telephone [facility] [address] [facility] [place] [address] Kristi Warren ANP Durable Medical Equipment from [...] Description 08/21/2025 9:00 AM EST Office Visit [facility] [address] [place], [place] [phone] Kristi Warren, ANP [address] [place] [address] Health Maintenance Due Date Last Done Comments [...] Comments CBC Routine 07/01/2025 1:19 PM EDT TESTOSTERONE, TOTAL, MALES (ADULT), [place] Routine 05/27/2025 [...] associated with type 2 diabetes mellitus ([facility]/H[facility]) ALBUMIN, RANDOM URINE W/CREATININE Routine 03/31/2025 11:34 AM EDT POCT GLYCATED HEMOGLOBIN, TOTAL Routine 03/13/2025 3:05 PM EDT Diabetic nephropathy associated with type 2 diabetes mellitus ([facility]/HCC) HM COLONOSCOPY Routine 07/26/2010 from Last 3 Months or Most Recently Relevant to Health Maintenance Results * (ABNORMAL) CBC (07/01/2025 1:19 PM EDT) Only the most recent of3 resultswithin the time period is included. White Blood Count 6.8 4.8 - 10.8 X10*3/uL [facility] Red Blood Count 4.64 4.60 - 5.80 X10*6/uL [facility] Hemoglobin 16.0 14.0 - 18.0 g/dl [facility] Hematocrit 46.9 42.0 - 52.0 % [facility] Mean Corpuscular Volume 101.1(H) 80.0 - 98.0 fL [facility] Mean Corpuscular Hemoglobin 34.5(H) 27.0 - 33.0 pg [facility] Mean Corpuscular HGB Conc 34.1 31.0 - 36.0 g/dl [facility] Red Cell Distribution Width 14.0 11.0 - 16.0 % [facility] Platelet Count 202 160 - 400 X10*3/uL [facility] Mean Platelet Volume 10.0 9.4 - 12.4 fL [facility] NRBC Pct Auto 0.0 0.0 - 0.2 /100WBC [facility] NRBC Abs Auto 0.000 0.0 - 0.012 X10*3/uL [facility] 07/01/2025 1:19 PM EDT 07/01/2025 1:19 PM EDT Generic External Data Provider LAB BLOOD ORDERAB LES Final Result Performing Organization Address [facility] Co de Phone Number [facility] [address] [place] [phone] * Testosterone, Total, males (Adult), [place] (05/27/2025 9:04 AM EDT) Only the most recent of2 resultswithin the time period is included. Testosterone, Total 300 250 - 1100 ng/dL [facility] Comment:Men with clinically significant hypogonadalsymptoms and testosterone values repeatedly inthe range of the 200-300 ng/dL or less, maybenefit from testosterone treatment afteradequate risk and benefits counseling.For additional information, please refer [email or web address]/faq/[email or web address](This link is being provided for informational/educational purposes only.)This test was developed and its analytical performancecharacteristics have been determined by [employer] [place], [place]. It hasnot been cleared or approved by the U.S. Food and DrugAdministration. This assay has been validated pursuantto the CLIA regulations and is used for clinicalpurposes.THIS TEST WAS PERFORMED AT:[facility] [place] [address]OTBIKXQDAVONTE MCCURDY MD,PHD 05/27/2025 9:04 AM EDT 05/27/2025 9:04 AM EDT Generic External Data Provider LAB BLOOD ORDERAB LES Final Result Performing Organization Address City/[facility]/ZIP Co de Phone Number [facility] [address] [place] [phone] * PSA,Total (05/27/2025 9:04 AM EDT) Only the most recent of2 resultswithin the time period is included. Prostate Specific Antigen 0.38 <0.05 - 4.0 ng/mL [facility] Comment:PSA methodology: Klaus Jefferson i ChemiluminescentMicroparticle Immunoassay (CMIA) 05/27/2025 9:04 AM EDT 05/27/2025 9:04 AM EDT Generic External Data Provider LAB BLOOD ORDERAB LES Final Result Performing Organization Address [facility] Co de Phone Number [facility] [address] [place] [phone] * (ABNORMAL) High Sensitivity Troponin I (04/15/2025 4:07 PM EDT) Pathologist [facility] TROPONIN I HIGH SENSITIVITY 35.7(H) <3.5 - 35.0 ng/L [facility] Comment:The Bueno high sens itivity Troponin-I results should beused in conjunction with other diagnostic information suchas ECG, clinical observations and information, and patientsymptoms to aid in the diagnosis of RI. 04/15/2025 4:07 PM EDT 04/15/2025 4:10 PM EDT Generic External Data Provider LAB BLOOD ORDERAB LES Final Result Performing Organization Address [facility] Co de Phone Number [facility] [address] [place] [phone] * SARS-CoV-2 RNA, Influenza A/B, and RSV RNA, Ql NAAT (04/15/2025 4:06 PM EDT) Pathologist [facility] Influenza A PCR NEGATIVE Negative [facility] Influenza B PCR NEGATIVE Negative [facility] Resp Syncy Virus RNA Qual PCR NEGATIVE Negative [facility] SARS COV2 PCR NEGATIVE Negative [facility] Comment:All test results mus t [...] use by authorized laboratories.Testing performed on the [employer] GeneXpert utilizingreal-time RT-PCR.All SARS CoV2 and positive influenza A/B results arereported to [facility]. 04/15/2025 4:06 PM EDT 04/15/2025 4:10 PM EDT us Generic External Data Provider LAB MICROBIOLOGY - GENERAL ORDERABLES Final Result [facility] [address] [place] [address] [phone] * (ABNORMAL) CBC auto differential (04/15/2025 4:06 PM EDT) Only the most recent of2 resultswithin the time period is included. White Blood Count 8.2 4.8 - 10.8 X10*3/uL [facility] Red Blood Count 4.58(L) 4.60 - 5.80 X10*6/uL [facility] Hemoglobin 15.6 14.0 - 18.0 g/dl [facility] Hematocrit 44.5 42.0 - 52.0 % [facility] Mean Corpuscular Volume 97.2 80.0 - 98.0 fL [facility] Mean Corpuscular Hemoglobin 34.1(H) 27.0 - 33.0 pg [facility] Mean Corpuscular HGB Conc 35.1 31.0 - 36.0 g/dl [facility] Red Cell Distribution Width 14.1 11.0 - 16.0 % [facility] Platelet Count 156(L) 160 - 400 X10*3/uL [facility] Mean Platelet Volume 9.6 9.4 - 12.4 fL [facility] Neutrophils Percent Auto 56.6 45 - 73 % [facility] Imm Gran Pct Auto 0.4 0.0 - 0.4 % [facility] Lymphocytes Percent Auto 31.7 20 - 40 % [facility] Monocytes Percent Auto 9.9 2 - 11 % [facility] Eosinophils Percent Auto 0.9 0 - 4 % [facility] Basophils Percent Auto 0.5 0 - 2 % [facility] NRBC Pct Auto 0.2 0.0 - 0.2 /100WBC [facility] Neutrophils Absolute Auto 4.6 2.0 - 8.3 x10*3/uL [facility] Imm Gran Abs Auto 0.03 0.00 - 0.03 X10*3/uL [facility] Lymphocytes Absolute Auto 2.6 1.2 - 4.9 X10*3/uL [facility] Monocytes Absolute Auto 0.8 0.1 - 1.2 X10*3/uL [facility] Eosinophils Absolute Auto 0.1 0.0 - 0.4 X10*3/uL [facility] Basophils Absolute Auto 0.0 0.0 - 0.2 X10*3/uL [facility] NRBC Abs Auto 0.020(H) 0.0 - 0.012 X10*3/uL [facility] 04/15/2025 4:06 PM EDT 04/15/2025 4:10 PM EDT us Generic External Data Provider LAB BLOOD ORDERAB LES Final Result [facility] [address] [place] [phone] * (ABNORMAL) Magnesium (04/15/2025 4:06 PM EDT) Magnesium 1.4(LL) 1.6 - 2.6 mg/dL [facility] Comment:Critical value for t est(s):MAGS Results called to and readback by:DR BLACK Person calling:Serveron Date:[id number] 04/15/2025 4:06 PM EDT 04/15/2025 4:10 PM EDT us Generic External Data Provider LAB BLOOD ORDERAB LES Final Result [facility] [address] [place] [phone] * (ABNORMAL) Comprehensive Metabolic Panel (04/15/2025 4:06 PM EDT) Sodium 140 135 - 145 mmol/L [facility] Potassium 3.4 3.3 - 5.1 mmol/L [facility] Chloride 98 96 - 108 mmol/L [facility] Carbon Dioxide 33(H) 22 - 29 mmol/L [facility] Anion Gap 12 12 - 20 [facility] Urea Nitrogen (BUN) 11 9 - 16 mg/dL [facility] Creatinine, Serum 1.16 0.5 - 1.4 mg/dL [facility] Creatinine Clr Calc Pharmacy 49.6 [facility] Comment:eGFR (calculated fro m the MDRD study equation) and eCrCl(calculated from the Cockcroft-Gault equation) are based ondifferent parameters and may not yield comparable results.If eCrCl result is absurd, please check patient'sheight/weight. Estimated Glomerular Filt Rate >60 [facility] Comment:Chronic Kidney Disea se: Estimated GFR < 60 mL/min/1.39w6Ycrtfr Kidney Disease: Estimated GFR < 15 mL/min/1.73m2 Glucose 119(H) 60 - 115 mg/dL [facility] Calcium 8.5 8.4 - 10.2 mg/dL [facility] Bilirubin, Total 1.5(H) 0.0 - 1.0 mg/dL [facility] Aspartate Amino Transferase 60(H) 5 - 37 U/L [facility] Alanine Aminotransferase 71(H) 0 - 40 U/L [facility] Total Protein 5.6(L) 6.5 - 8.0 g/dL [facility] Albumin Level 3.6 3.5 - 5.0 g/dL [facility] Alkaline Phosphatase 89 39 - 117 U/L [facility] 04/15/2025 4:06 PM EDT 04/15/2025 4:10 PM EDT us Generic External Data Provider LAB BLOOD ORDERAB LES Final Result Performing Organization Address [facility] Co de Phone Number [facility] [address] [place] [phone] * ECG 12 lead (04/15/2025 2:50 PM EDT) Narrative Amy Fry MD - 04/15/2025 2:50 PM EDT A fib with RVR HR 128 us Amy Estrada MD ECG ORDERABLES Final Result * TSH W/Reflex to FT4 (03/31/2025 11:41 AM EDT) TSH reflex Free T4 2.87 0.32 - 4.0 uIU/mL [facility] Blood Venous blood specimen / Unknown 03/31/2025 11:41 AM EDT 03/31/2025 11:41 AM EDT us Kristi Warren [facility] LAB BLOOD ORDERABLES Final Resul t Performing Organization Address [facility] Co de Phone Number [facility] [address] [place] [phone] * Hepatitis C Antibody with Reflex to HCV, RNA, Quantitative, Real-Time PCR (03/31/2025 11:41 AM EDT) Hepatitis C Antibody Nonreactive Nonreactive [facility] Comment:Antibodies to HCV no t detected; does not exclude early acuteHCV infection. Blood Venous blood specimen / Unknown 03/31/2025 11:41 AM EDT 03/31/2025 11:41 AM EDT Kristi Warren [facility] LAB BLOOD ORDERABLES Final Resul t Performing Organization Address [facility] Co de Phone Number [facility] [address] [place] [phone] * HIV-1/2 Antigen and Antibodies, Fourth Generation, with Reflexes (03/31/2025 11:41 AM EDT) HIV AB/AG Nonreactive Nonreactive [facility] Comment:HIV-1 p24 Ag and/or HIV-1/HIV-2 Ab not detected.A test result that is nonreactive does not exclude thepossibility of exposure to or infection with HIV-1 and/orHIV-2. Nonreactive results in this assay for individualswith prior exposure to HIV-1 and/or HIV-2 may be due toantigen and antibody levels that are below the limit ofdetection of this assay.The [employer] HIV Ag/Ab Combo assay result andsupplemental assay results should be interpreted inconjunction with the patient's clinical presentation,history and other laboratory results. If the results areinconsistent with clinical evidence, additional testing issuggested to confirm the result. Blood Venous blood specimen / Unknown 03/31/2025 11:41 AM EDT 03/31/2025 11:41 AM EDT Kristi Warren [facility] LAB BLOOD ORDERABLES Final Resul t Performing Organization Address City/[facility]/ZIP Co de Phone Number [facility] [address] [place] [phone] * Sed Rate by Modified Ernestoergren (03/31/2025 11:41 AM EDT) Erythrocyte Sedimentation Rate 2 0 - 15 MM/HR [facility] Comment:Patients with polycy themia and many hemoglobin abnormalitiesmay have depressed sed rates whereas patients with anemiamay have elevated sed rates. Blood Venous blood specimen / Unknown 03/31/2025 11:41 AM EDT 03/31/2025 11:41 AM EDT Kristi Warren [facility] LAB BLOOD ORDERABLES Final Resul t Performing Organization Address [facility]/ZIP Co de Phone Number [facility] [address] [place] [phone] * C-reactive Protein (03/31/2025 11:41 AM EDT) C Reactive Protein <0.04 < or = 0.50 mg/dL [facility] Blood Venous blood specimen / Unknown 03/31/2025 11:41 AM EDT 03/31/2025 11:41 AM EDT Kristi Warren [facility] LAB BLOOD ORDERABLES Final Resul t Performing Organization Address [facility] Co de Phone Number [facility] [address] [place] [phone] * (ABNORMAL) Hepatic Function Panel (03/31/2025 11:41 AM EDT) Bilirubin, Total 1.6(H) 0.0 - 1.0 mg/dL [facility] Bilirubin, Direct 0.5 0.0 - 0.5 mg/dL [facility] Aspartate Amino Transferase 46(H) 5 - 37 U/L [facility] Alanine Aminotransferase 41(H) 0 - 40 U/L [facility] Total Protein 5.8(L) 6.5 - 8.0 g/dL [facility] Albumin Level 3.6 3.5 - 5.0 g/dL [facility] Alkaline Phosphatase 83 39 - 117 U/L [facility] Blood Venous blood specimen / Unknown 03/31/2025 11:41 AM EDT 03/31/2025 11:41 AM EDT Kristi Warren [facility] LAB BLOOD ORDERABLES Final Resul t Performing Organization Address [facility] Co de Phone Number [facility] [address] [place] [phone] * Lipid Panel, Standard (03/31/2025 11:41 AM EDT) Triglycerides 64 <150 mg/dL [facility] Comment:Desirable Triglyceri de: less than 150 mg/dLBorderline High Triglyceride 150-199 mg/dLHigh Triglyceride: 200-499 mg/dLVery High Triglyceride: greater than or equal to 5OO mg/dL Cholesterol 86 <200 mg/dL [facility] Comment:Desirable Cholestero l: less than 200 mg/dLBorderline High Cholesterol: 200-239 mg/dLHigh Cholesterol: greater than 239 mg/dL LDL Cholesterol Calculated 30 <100 mg/dL [facility] Comment:Desirable LDL: less than 100 mg/dLNear Optimal/Above Optimal LDL: 110- 129 mg/dLBorderline High LDL: 130-159 mg/dLHigh LDL: 160-189 mg/dLVery High LDL: greater than or equal to 190 mg/dL HDL Cholesterol 44 >40 mg/dL [facility] Comment:Desirable HDL: great er than 40 mg/dL Note: This HDL assay may give artificially low results in patients with liver disease. Blood Venous blood specimen / Unknown 03/31/2025 11:41 AM EDT 03/31/2025 11:41 AM EDT Kristi Warren [facility] LAB BLOOD ORDERABLES Final Resul t [facility] [address], [place] [phone] * (ABNORMAL) Basic Metabolic Panel (03/31/2025 11:41 AM EDT) Sodium 140 135 - 145 mmol/L [facility] Potassium 3.7 3.3 - 5.1 mmol/L [facility] Chloride 99 96 - 108 mmol/L [facility] Carbon Dioxide 30(H) 22 - 29 mmol/L [facility] Anion Gap 15 12 - 20 [facility] Urea Nitrogen (BUN) 9 9 - 16 mg/dL [facility] Creatinine, Serum 0.97 0.5 - 1.4 mg/dL [facility] Creatinine Clr Calc Pharmacy TNP [facility] Comment:Unable to calculate eCrCL; all parameters not provided. Estimated Glomerular Filt Rate >60 [facility] Comment:Chronic Kidney Disea se: Estimated GFR < 60 mL/min/1.45k0Pnpphm Kidney Disease: Estimated GFR < 15 mL/min/1.73m2 Glucose 206(H) 60 - 115 mg/dL [facility] Calcium 8.7 8.4 - 10.2 mg/dL [facility] Blood Venous blood specimen / Unknown 03/31/2025 11:41 AM EDT 03/31/2025 11:41 AM EDT rKisti Warren ANP LAB BLOOD ORDERABLES Final Resul t Performing Organization Address [facility] [facility] Co de Phone Number [facility] [address] [place] [phone] * Albumin, Random Urine W/Creatinine (03/31/2025 11:34 AM EDT) Creatinine, Urine 85.49 mg/dL [facility] Microalbumin Urine 17.0 mg/L [facility] Microalbum Creatinine Ratio Ur 19.8 <30 ug/mg cr [facility] Comment:Albumin/Creatinine R atio Reference Ranges: Normal: < 30 ug/mg creatinine Microalbuminuria: 30 - 300 ug/mg creatinineClinical Albuminuria: > 300 ug/mg creatinine 03/31/2025 11:3 4 AM EDT 03/31/2025 11:55 AM EDT Kristi Warren ANP LAB URINE ORDERABLES Final Resul t Performing Organization Address [facility] Co de Phone Number [facility] [address] [place] [phone] * (ABNORMAL) POCT HGB A1C (03/13/2025 3:05 PM EDT) Hemoglobin A1C 6.5(A) 4.0 - 6.0 % QC Media Lot # [id number] Lot# Expiration Date [id number] Blood 03/13/2025 3:05 PM EDT Kristi HERMAN POINT OF CARE TEST ENTER/EDIT OR DERABLES Final Result * Colonoscopy (07/26/2010) Colonoscopy Normal Normal Historical Provider HEALTH MAINTENANCE Final Result from Last 3 Months or Most Recently Relevant to Health Maintenance Insurance [id number] USP OPTIONS (O D-SNP) Advance Directives Documents on File Type Date Recorded Patient Hanger Expl anation Advance Directives and Living Will 12/27/2024 Health Care Proxy 12/26/24 Care Teams Master Control Engineer Relationship Specialty Start Date End Date Kristi Warren ANP [address] [place] [address] PCP - General Family Medicine 03/24/20 [facility] 12/09/24
--- OUTSIDE RECORDS SUMMARY | 2025-07-01 14:43 | XMS_ITS | Encounter Summary ---
Author Organization [employer] Address [address] [facility] 7t [place] [address] Care Team Providers Care Window Shade Ring Sewer Name Role Phone Kristi Warren Primary Care Provider [phone] Reason for Visit * Reason Onset Date Comments Durable Medical Equipment 04/20/2023 Encounter Details Date Type Department Care Team (Late st Contact Info) Description 04/20/2023 Telephone [facility] [address] [place] [address] Kristi Warren ANP [address] [place] [address] Durable Medical Equipment Social History Tobacco Use [...] 9:00 AM EST Office Visit [facility] [address] [place] [address] Kristi Warren ANP [address] [place] [address] documented as of this encounter Visit Diagnoses Not on filedocumented in this encounter Care Teams Window Shade Ring Sewer Relationship Specialty Start Date End Date Kristi Warren ANP [address] [place], [place] [phone] PCP - General Family Medicine 03/24/20 [facility] 08/09/24 12/19/24 [facility] 12/09/24 documented as of this encounter
--- OUTSIDE RECORDS SUMMARY | 2025-07-01 14:43 | XMS_ITS | Encounter Summary ---
Author Organization [employer] Address [address] [facility] 7t [place] [address] Care Team Providers Care Salary And Wage Administrator Name Role Phone Kristi Warren Primary Care Provider [phone] Reason for Visit * Reason Onset Date Comments Med Refill 04/12/2023 Encounter Details Date Type Department Care Team ([facility] st Contact Info) Description 04/12/2023 Telephone [facility] [address] [place] [address] Kristi Warren ANP [address] [place] [address] Med Refill Social History Tobacco Use Types [...] Description 08/21/2025 9:00 AM EST Office Visit [facility] [address] [place] [address] Kristi Warren ANP [address] [place] [address] documented as of this encounter Visit Diagnoses Not on filedocumented in this encounter Care Teams Salary And Wage Administrator Relationship Specialty Start Date End Date Kristi Warren ANP [address] [place] [address] PCP - General Family Medicine 03/24/20 [facility] 08/09/24 12/19/24 [facility] 12/09/24 documented as of this encounter
--- OUTSIDE RECORDS SUMMARY | 2025-07-01 14:43 | XMS_ITS | Encounter Summary ---
Author Organization [facility], Address [address] [place] [address] Phone Care Team Providers Care Delinquent Notice Machine Operator Name Role Phone Unavailable Primary Care Provider Unavailabl e Encounter Details Date Type Department Care Team (Late st Contact Info) Description 07/30/2024 Documentation Only [facility], - Angel Caicedo [address] [place] [phone] Iona Salas [address] [place] [address] Social History Tobacco Use Types [...]
--- OUTSIDE RECORDS SUMMARY | 2025-07-01 14:43 | XMS_ITS | Encounter Summary ---
Author Organization [employer] Address [address] [facility] 7t [place] [address] Care Team Providers Care Hall Tender Name Role Phone Kristi Warren Primary Care Provider [phone] Reason for Visit * Reason Onset Date Comments Durable Medical Equipment 07/27/2023 Encounter Details Date Type Department Care Team (Late st Contact Info) Description 07/27/2023 Telephone [facility] [address] [place] [address] Kristi Warren ANP [address] [place] [address] Durable Medical Equipment Social History Tobacco Use [...] PM EDT Tc from [facility] requesting DME for pt on glucometer kit. Any question contact [facility] documented in this encounter Plan of Treatment Upcoming Encounters Date Type Department Care Team (Late st Contact Info) Description 08/21/2025 9:00 AM EST Office Visit [facility] [address] [place] [address] Kristi Warren ANP [address] [place] [address] documented as of this encounter Visit Diagnoses Not on filedocumented in this encounter Care Teams Hall Tender Relationship Specialty Start Date End Date Kristi Warren ANP [address] [place] [address] PCP - General Family Medicine 03/24/20 [facility] 08/09/24 12/19/24 [facility] 12/09/24 documented as of this encounter
--- OUTSIDE RECORDS SUMMARY | 2025-07-01 14:43 | XMS_ITS | Encounter Summary ---
Author Organization [facility], Address [address] [place] [address] Phone Care Team Providers Care Youtuber Name Role Phone Unavailable Primary Care Provider Unavailabl e Encounter Details Date Type Department Care Team (Late st Contact Info) Description 07/30/2024 Documentation Only [facility], - Angel Caicedo [address] [place] [phone] Iona Salas [address] [place] [address] Social History Tobacco Use Types [...]
--- OUTSIDE RECORDS SUMMARY | 2025-07-01 14:43 | XMS_ITS | Encounter Summary ---
Author Organization [employer] Address [address] [facility] 7t [place] [address] Care Team Providers Care Equipment Operator Warehouse Name Role Phone Kristi Warren Primary Care Provider [phone] Reason for Visit * Reason Onset Date Comments ER Follow-up 04/22/2025 fyi 04/22/2025 Encounter Details Date Type Department Care Team (Late st Contact Info) Description 04/22/2025 Telephone [facility] [address] [place], [place] [phone] Kristi Warren ANP [address] [place], [place] [phone] ER Follow-up; Social History Tobacco Use Types [...] 2:30pm 04/22/25. Received call back from Ivette Executive Coach to Dr Almazan. Pt had nurse visit last Monday04/18/25 and was instructed to hold metoprolol and furosemide. His next appt is 04/25/25 with CECILY Shirley at [facility] cardiology, and has Echo scheduled for 05/01/25. [...] office who is requesting office note from [facility] Cardiology visit on 04/18/25.Per [facility], only nursing note available for review (copied below). Per note, pt to hold metoprolol and lasix (already being held). Called [facility] Cardiology and left message for medical instructor requesting call back to see if longer [...] : Date: 04/19/25 Hospital: Urgent care in [place] Seen for: neck pain Symptomatic No Pt was prescribed baclofen *sick on site visit scheduled for 04/[address] Okeefe has been canceled due to noty being needed. documented in this encounter Plan of Treatment Upcoming Encounters Date Type Department Care Team (Late st Contact Info) Description 08/21/2025 9:00 AM EST Office Visit [facility] [address] [place] [address] Kristi Warren ANP [address] [place], [place] [phone] documented as of this encounter Goals Goal [...] documented as of this encounter Care Teams Equipment Operator Warehouse Relationship Specialty Start Date End Date Kristi Warren ANP [address] [place] [address] PCP - General Family Medicine 03/24/20 [facility] Care 12/09/24 documented as of this encounter
--- OUTSIDE RECORDS SUMMARY | 2025-07-01 14:43 | XMS_ITS | Encounter Summary ---
Author Organization [facility], Address [address] [place] [address] Phone Care Team Providers Care Plaster And Stucco Worker Name Role Phone Unavailable Primary Care Provider Unavailabl e Reason for Visit * Reason Comments Med Refill Encounter Details Date Type Department Care Team (Late st Contact Info) Description 10/20/2024 Refill [facility], [address] [place] [address] Jt Ochoa PA [address] [place] [address] Social History Tobacco Use Types [...]
--- OUTSIDE RECORDS SUMMARY | 2025-07-01 14:43 | XMS_ITS | Encounter Summary ---
Author Organization [facility], Address [address] [place] [address] Phone Care Team Providers Care Precision Lens Generator Name Role Phone Unavailable Primary Care Provider Unavailabl e Reason for Visit * Reason Comments Med Refill Encounter Details Date Type Department Care Team (Late st Contact Info) Description 09/15/2023 Refill [facility], [address] [place] [address] Jt Ochoa PA [address] [place] [address] Social History Tobacco Use Types [...]
--- OUTSIDE RECORDS SUMMARY | 2025-07-01 14:43 | XMS_ITS | Encounter Summary ---
Author Organization [facility], Address [address] [place] [address] Phone Care Team Providers Care Student Success Coach Name Role Phone Unavailable Primary Care Provider Unavailabl e Encounter Details Date Type Department Care Team (Late st Contact Info) Description 07/30/2024 Documentation Only [facility], - Angel Caicedo [address] [place] [phone] Iona Salas [address] [place] [address] Social History Tobacco Use Types [...]
--- OUTSIDE RECORDS SUMMARY | 2025-07-01 14:43 | XMS_ITS | Encounter Summary ---
Author Organization [employer] Address [address] [facility] 7t [place] [address] Care Team Providers Care Telemarketing Representative Name Role Phone Kristi Warren Primary Care Provider [phone] Reason for Visit * Reason Onset Date Comments Nurse Triage 04/06/2023 Encounter Details Date Type Department Care Team ([facility] st Contact Info) Description 04/06/2023 Telephone [facility] MED[facility]INE [address] [place] [address] Kristi Warren ANP [address] [place] [address] Nurse Triage Social History Tobacco Use Types [...] The caller accepted this outcome Patient speaks kazakh documented in this encounter Plan of Treatment Upcoming Encounters Date Type Department Care Team (Late st Contact Info) Description 08/21/2025 9:00 AM EST Office Visit [facility] [address] [place] [address] Kristi Warren ANP [address] [place] [address] documented as of this encounter Visit Diagnoses Not on filedocumented in this encounter Care Teams Telemarketing Representative Relationship Specialty Start Date End Date Kristi Warren ANP [address] [place] [address] PCP - General Family Medicine 03/24/20 [facility] 08/09/24 12/19/24 [facility] 12/09/24 documented as of this encounter
--- OUTSIDE RECORDS SUMMARY | 2025-07-01 14:43 | XMS_ITS | Patient Health Record ---
Author Organization [facility] Address [address] [facility] [place] [address] Care Team Providers Care Mold Dumper Name Role Phone Kristi Warren Primary Care Provider Fan Simons Unavailable [phone] Allergies No Known Allergies Reason For Referral [...] Problem Acquired hammer toe of right foot (22554828800972 05) Other hammer toe(s) (acquired), right foot (M20.41) Active confirmed Problem Type 2 diabetes mellitus with peripheral angiopathy (319114725) Type 2 diabetes mellitus with diabetic peripheral angiopathy without gangrene (E11.51) Active confirmed Problem Acquired hammer toe of left foot (55884479511771 03) Other hammer toe(s) (acquired), left foot (M20.42) Active confirmed Plan Of Treatment Pending Test Test Name Order Date [id number] NAIL, 6 OR MORE 09/14/2020 79334-[id number] NAIL, 6 OR MORE 12/14/2020 38763-[id number] NAIL, 6 OR MORE 02/22/2021 [id number] NAIL, 6 OR MORE 04/29/2021 34712-[id number] NAIL, 6 OR MORE 08/11/2021 [id number] NAIL, 6 OR MORE 10/20/2021 [id number] NAIL, 6 OR MORE 12/30/2021 17179-[id number] NAIL, 6 OR MORE 03/23/2022 74606-[id number] NAIL, 6 OR MORE 06/06/2022 57958-TTOV SKIN LESIONS, OVER 4 06/06/20 22 34806-TNBR SKIN LESIONS, OVER 4 12/31/19 22 96090-LPBC SKIN LESIONS, OVER 4 03/23/20 22 71871-EBTS SKIN LESIONS, OVER 4 10/20/19 22 16952-AVMK SKIN LESIONS, OVER 4 08/11/20 21 25019-BLWL SKIN LESIONS, OVER 4 04/29/20 21 51925-UPCT SKIN LESIONS, OVER 4 02/23/20 21 84926-PFPL SKIN LESIONS, OVER 4 12/15/19 21 31179-AJPY SKIN LESIONS, OVER 4 09/14/20 20 Insurance Providers Payer Name Payer Address Payer Phone Subscriber Number Group Number Insured Name Patient Relationship to Insured Coverage Start Date Coverage End Date [facility] [employer] Claims [address] [place] [phone] [id number] Albert Baeza Self - patient is the insured Medical (General) History Medical History History ICD Code Diabetic Surgical History Surgery Date(Month/Year) back surgery Hospitalization History Reason Date(Month/Year) [facility]- swollen legs
--- OUTSIDE RECORDS SUMMARY | 2025-07-01 14:43 | XMS_ITS | Encounter Summary ---
Author Organization [employer] Address [address] [facility] 7t [place] [address] Care Team Providers Care Therapist Speech Name Role Phone Kristi Warren Primary Care Provider [phone] Reason for Visit * Reason Onset Date Comments Referral 03/29/2023 Encounter Details Date Type Department Care Team ([facility] st Contact Info) Description 03/29/2023 Telephone [facility] MED[facility]INE [address] [place] [address] Kristi Warren ANP [address] [place] [address] Referral Social History Tobacco Use Types Packs/Day [...] referral for Podiatry. Please contact pt at [phone] Italian Speaker documented in this encounter Plan of Treatment Upcoming Encounters Date Type Department Care Team (Late st Contact Info) Description 08/21/2025 9:00 AM EST Office Visit [facility] [address] [place] [address] Kristi Warren ANP [address] [place] [address] documented as of this encounter Visit Diagnoses Not on filedocumented in this encounter Care Teams Therapist Speech Relationship Specialty Start Date End Date Kristi Warren ANP [address] [place] [address] PCP - General Family Medicine 03/24/20 [facility] 08/09/24 12/19/24 [facility] 12/09/24 documented as of this encounter
--- OUTSIDE RECORDS SUMMARY | 2025-07-01 14:43 | XMS_ITS | Encounter Summary ---
Author Organization [employer] Address [address] [facility] [address] 7t [place] [address] Care Team Providers Care Crawler Dragline Operator Name Role Phone Kristi Warren Primary Care Provider [phone] Encounter Details Date Type Department Care Team (Late st Contact Info) Description 08/15/2024 Telephone [facility]ICINE [address] [place], [place] [phone] Kristi Warren ANP [address] [place] [address] Social History Tobacco Use Types Packs/Day Years [...] 11:11 AM EST TC from Viktoria William PHARMACIST APPRENTICE of pt stated that pt doesn't have no more meds due to pt is taking doseof trazodone of 7 days in 1 night also taking a lot of gabapentin in a Day and regular medication pt is crushing them and put in on sink is no taking none of his medication. Pt used [facility] and he is not due until August 30. [facility] requesting a call from PCP to discuss pt medication. PCP DR. Warren documented in this encounter Plan of Treatment Upcoming Encounters Date Type Department Care Team (Late st Contact Info) Description 08/21/2025 9:00 AM EST Office Visit [facility] [address] [place], [place] [phone] Kristi Warren ANP [address] [place] [address] documented as of this encounter Goals Goal [...] documented as of this encounter Care Teams Crawler Dragline Operator Relationship Specialty Start Date End Date Kristi Warren ANP [address] [place] [address] PCP - General Family Medicine 03/24/20 [facility] 08/09/24 12/19/24 [facility] 12/09/24 documented as of this encounter
--- OUTSIDE RECORDS SUMMARY | 2025-07-01 14:43 | XMS_ITS | Encounter Summary ---
Author Organization [employer] Address [address] [facility] 7t [place] [address] Care Team Providers Care Lawn Mower Mechanic Name Role Phone Kristi Warren Primary Care Provider Reason for Visit * Reason Onset Date Comments Nurse Triage 04/18/2023 Encounter Details Date Type Department Care Team ([facility] st Contact Info) Description 04/18/2023 Telephone [facility] MEDICINE [address] [place] [address] Kristi Warren ANP [address] [place] [address] Nurse Triage Social History Tobacco Use Types [...] 04/18/2023 3:57 PM EDT Called pt. Via [facility] scrub woman [phone] Nadja. Pt. States that he had an appt. With Provider Kelvin today and he was feeling dizzy after his appt. While driving and had to veneer puller. Pt. States hehad some blood work [...] accepted this outcome Please contact pt at [phone] (Hungarian speaker) documented in this encounter Plan of Treatment Upcoming Encounters Date Type Department Care Team (Late st Contact Info) Description 08/21/2025 9:00 AM EST Office Visit [facility]ICINE [address] [place] [address] Kristi Warren ANP [address] [place] [address] documented as of this encounter Visit Diagnoses Not on filedocumented in this encounter Care Teams Lawn Mower Mechanic Relationship Specialty Start Date End Date Kristi Warren ANP [address] [place] [address] PCP - General Family Medicine 03/24/20 [facility] 08/09/24 12/19/24 [facility] 12/09/24 documented as of this encounter
--- OUTSIDE RECORDS SUMMARY | 2025-07-01 14:43 | XMS_ITS | Encounter Summary ---
Author Organization [employer] Address [address] [facility] [address] 7t [place] [address] Care Team Providers Care Telephone Surveyor Name Role Phone Kristi Warren Primary Care Provider [phone] Encounter Details Date Type Department Care Team (Late st Contact Info) Description 05/23/2025 Orders Only [facility]ICINE [address] [place], [place] [phone] Kristi Warren ANP [address] [place] [address] Social History Tobacco Use Types Packs/Day Years [...] Description 08/21/2025 9:00 AM EST Office Visit [facility] [address] [place] [address] Kristi Warren ANP [address] [place] [address] documented as of this encounter Goals Goal [...] documented as of this encounter Care Teams Telephone Surveyor Relationship Specialty Start Date End Date Kristi Warren ANP [address] [place] [address] PCP - General Family Medicine 03/24/20 [facility] 12/09/24 documented as of this encounter
--- OUTSIDE RECORDS SUMMARY | 2025-07-01 14:43 | XMS_ITS | Encounter Summary ---
Author Organization [facility] [place], Address [address] [place] [address] Phone Care Team Providers Care Sales Representative Wire Rope Name Role Phone Unavailable Primary Care Provider Unavailabl e Reason for Visit * Reason Comments Med Refill Encounter Details Date Type Department Care Team (Late st Contact Info) Description 10/15/2024 Refill [facility], [address] [place] [place] [address] Jt Ochoa PA [address] [place] [address] Social History Tobacco Use Types [...]
--- OUTSIDE RECORDS SUMMARY | 2025-07-01 14:43 | XMS_ITS | Clinical Summary ---
Author Organization [facility] [place], Address [address] [place] [address] [place] [address] Phone Care Team Providers Care Carrot Buncher Name Role Phone Unavailable Primary Care Provider [...] tablet 11 3 Active Vitamin D, Ergocalciferol, 76709 units capsule Use 500 mcg in the [...] Hypercholesterolemia 09/24/2019 021 Hypertensive heart disease w [facility] congestive heart failure 09/24/2019 01/24/2022 Microalbuminuria [...] PM EST) Hemoglobin A1C 6.0(H) (4.0-5.6) % [facility] Comment: MONITORING: In known diabetic patients, hemoglobin A1c targets should be discussed with health care provider. DIAGNOSTIC USE: The Citizen Of [place] Diabetes Association (ADA) and the World Health [...] Supplement 1 Testing performed or reported by [facility], a Service of [facility], [address] [place] [address] Elvira Lopez MD, Strategic Planning Analyst [facility]# [id number] Blood specimen (specimen) Venous blood / Unknown 10/25/2022 1:48 PM EST 10/25/2022 1:54 PM EST us [facility] BLOOD ORDERABLES Final Re sult [facility] from Last 3 Months or Most Recently Relevant to Health Maintenance Insurance [facility] One Care Dual SNP ([id number]) [place] [phone] [place] [phone] , [place] [id number] [place] [id number]
--- OUTSIDE RECORDS SUMMARY | 2025-07-01 14:44 | XMS_ITS | Encounter Summary ---
Author Organization [facility] [place], Address [address] [place] [address] Phone Care Team Providers Care Rn Circulating Name Role Phone Unavailable Primary Care Provider Unavailabl e Encounter Details Date Type Department Care Team (Late st Contact Info) Description 01/27/2023 Orders Only [facility], [address] [place] [address] Jt Ochoa PA [address] [place] [address] Stage 3a chronic kidney disease [...]
--- OUTSIDE RECORDS SUMMARY | 2025-07-01 14:44 | XMS_ITS | Encounter Summary ---
Author Organization [facility] [place], Address [address] [place] [address] Phone Care Team Providers Care President College Or University Name Role Phone Unavailable Primary Care Provider Unavailabl e Encounter Details Date Type Department Care Team (Late st Contact Info) Description 01/10/2024 Documentation Only [facility], [address] [place] [address] Iona Salas [address] [place] [address] Social History Tobacco Use Types [...]
--- OUTSIDE RECORDS SUMMARY | 2025-07-01 14:44 | XMS_ITS | Encounter Summary ---
Author Organization [facility], Address [address] [place] [address] Phone Care Team Providers Care Computer Numerical Control Machinist Name Role Phone Unavailable Primary Care Provider Unavailabl e Encounter Details Date Type Department Care Team (Late st Contact Info) Description 10/19/2022 Documentation Only [facility], [address] [place] [address] Jt Ochoa PA [address] [place] [address] Social History Tobacco Use Types [...]
--- OUTSIDE RECORDS SUMMARY | 2025-07-01 14:44 | XMS_ITS | Encounter Summary ---
Author Organization [facility], Address [address] [place] [address] Phone Care Team Providers Care Back End Web Developer Name Role Phone Unavailable Primary Care Provider Unavailabl e Encounter Details Date Type Department Care Team (Late st Contact Info) Description 10/07/2022 Orders Only [facility], [address] [place] [address] Jt Ochoa PA [address] [place] [address] Stage 3a chronic kidney disease [...] 1:48 PM EST) Iron 70 (45-160) MCG/DL [facility] UIBC 153 (110-370) MCG/DL [facility] TIBC 223 (155-530) MCG/DL [facility] Iron Saturation (TSat) 31 (20-55) % [facility] Comment: Testing performed or reported by [facility], a Service of [facility], [address] [place] [address] Elvira Lopez MD, Tamper Operator [facility]# [id number] Blood specimen (specimen) Venous blood / Unknown 10/25/2022 1:48 PM EST 10/25/2022 1:54 PM EST Jt [facility] BLOOD ORDERABLES Final Re sult [facility] * (ABNORMAL) Hemoglobin A1c (10/25/2022 1:48 PM EST) Hemoglobin A1C 6.0(H) (4.0-5.6) % [facility] Comment: MONITORING: In known diabetic patients, hemoglobin A1c targets should be discussed with health care provider. DIAGNOSTIC USE: The [place] Diabetes Association (ADA) and the World Health [...] Supplement 1 Testing performed or reported by [facility] [employer], a Service of [facility], [address] [place] [address] Elvira Lopez MD, Tamper Operator CLIA# [id number] Blood specimen (specimen) Venous blood / Unknown 10/25/2022 1:48 PM EST 10/25/2022 1:54 PM EST Jt G[facility] BLOOD ORDERABLES Final Re sult Performing Organization Address [facility] de Phone Number [facility] * (ABNORMAL) PTH, intact (10/25/2022 1:48 PM EST) PTH, Intact 105(H) (15-65) PG/ML [facility] Comment: Testing performed or reported by [facility], a Service of [facility], [address] [place] [address] Elvira Lopez MD, Tamper Operator CLIA# [id number] Blood specimen (specimen) Venous blood / Unknown 10/25/2022 1:48 PM EST 10/25/2022 1:54 PM EST Jt [facility] BLOOD ORDERABLES Final Re sult Performing Organization Address [facility] Co de Phone Number [facility] * Urine Protein / creatinine ratio (10/25/2022 1:48 PM EST) [facility] Protein/Creatin e Ratio 0.14 (0-0.2) [facility] Protein, Urine 13 MG/DL [facility] Creatinine, Urine 96.2 MG/DL [facility] Comment: Testing performed or reported by [facility], a Service of [facility], [address] [place] [address] Elvira Lopez MD, Tamper Operator [facility]# [id number] Urine specimen (specimen) Urine specimen obtained by clean catch procedure / Unknown 10/25/2022 1:48 PM EST 10/25/2022 1:54 PM EST Jt [facility] URINE ORDERABLES Final Re sult [facility] * (ABNORMAL) Urinalysis, Complete w/reflex to Culture (10/25/2022 1:48 PM EST) [facility] Appearance LIGHT YELLOW [facility] Comment:CLEAR Specific [place] 1.014 (1.002-1. 030) [facility] pH Urine 6.0 (5.0-8.0) [facility] Albumin, Urine TRACE(A) (NEG) [facility] Glucose, Ur NEGATIVE (NEG) [facility] Ketones, Urine NEGATIVE (NEG) [facility] Bilirubin Urine NEGATIVE (NEG) [facility] Hemoglobin Presence in Urine NEGATIVE (NEG) [facility] Nitrite, Urine NEGATIVE (NEG) [facility] Leukocyte Esterase Urine NEGATIVE (NEG) [facility] Urobilinogen Urine NORMAL (NORM) MG/DL [facility] WBC, Urine 1 (0-5) /HPF [facility] RBC, Urine 1 (0-3) /HPF [facility] Mucus, Urine SLIGHT /LPF [facility] Hyaline Casts, Urine 4(H) (0-2) LPF [facility] Clarity CLEAR (CLEAR) [facility] CULTURE INDICATED CULTURE NOT INDICATED [facility] Comment: Testing performed or reported by [facility], a Service of [facility], [address] [place] [address] Elvira Lopez MD, Tamper Operator [facility]# [id number] Urine specimen (specimen) Urine specimen obtained by clean catch procedure / Unknown 10/25/2022 1:48 PM EST 10/25/2022 1:54 PM EST us Jt [facility] URINE ORDERABLES Final Re sult [facility] * (ABNORMAL) CBC and differential (10/25/2022 1:48 PM EST) White Blood Cells 10.3 (4.0-11.0 ) K/MM3 [facility] RBC 4.06(L) (4.70-6.1 0) M/MM3 [facility] Hgb 13.7 (13.7-17. 1) GM/DL [facility] Hematocrit 42.3 (40.5-50. 0) % [facility] MCV 104.2(H) (80.0-94. 0) FL [facility] MCH 33.7 (27.0-34. 0) PG [facility] MCHC 32.4(L) (33.0-37. 0) g/dL [facility] Platelets 232 (150-460) K/MM3 [facility] RDW-SD 50.7(H) (<47.0) FL [facility] MPV 9.8 (9.4-12.4 ) FL [facility] nRBC Count 0.0 #/100 WBC'S [facility] NRBC Absolute 0.0 K/MM3 [facility] Neutrophils Abs Auto 6.6 (1.3-7.0) K/MM3 [facility] Lymphocytes Relative 2.6 (0.8-3.1) K/MM3 [facility] Monocytes 0.7 (0.4-1.3) K/MM3 [facility] Eosinophils Relative 0.2 (0.0-0.4) K/MM3 [facility] Basophil ABS 0.1 (0.0-0.1) K/MM3 [facility] Granulocytes Absolute 0.1 K/MM3 [facility] Neutrophils % Auto 64.3 (44-76) % [facility] Lymphs 25.4 (15-43) % [facility] Monocytes Absolute 7.0 (4.5-10.5 ) % [facility] Eosinophils 2.3 (0-6) % [facility] Basophils Relative 0.5 (0-2) % [facility] Immature Granulocytes 0.5 % [facility] Comment: Testing performed or reported by [facility], a Service of [address] [address] Elvira Lopez MD, Tamper Operator CLIA# [id number] Blood specimen (specimen) Venous blood / Unknown 10/25/2022 1:48 PM EST 10/25/2022 1:54 PM EST Jt [facility] BLOOD ORDERABLES Final Re sult Performing Organization Address [facility] Co de Phone Number [facility] * (ABNORMAL) Renal function panel (10/25/2022 1:48 PM EST) Pathologist [facility] Glucose 116(H) (70-99) MG/DL [facility] BUN 25(H) (8-23) MG/DL [facility] Creatinine 1.7(H) (0.7-1.2) MG/DL [facility] Sodium 139 (133-145) MMOL/L [facility] Potassium 4.5 (3.6-5.2) MMOL/L [facility] Chloride 100 (98-107) MMOL/L [facility] Bicarbonate (CO2) 33(H) (22-29) MMOL/L [facility] Anion Gap 6 (4-17) [facility] Albumin 4.2 (3.4-4.8) GM/DL [facility] Calcium 9.5 (8.6-10.5) MG/DL [facility] Phosphorus, Serum 3.8 (2.5-4.5) MG/DL [facility] Est GFR Non 44 ML/MIN/1.7 3 M2 [facility] Comment: Creatinine based estimated glomerular filtration (eGFR) in adults is calculated using the National Kidney Foundation recommended 2020 CKD-EPI equation. Estimates GFR from serum creatinine, age and sex. Testing performed or reported by [facility], a Service of [address] [address] Elvira Lopez MD, Tamper Operator CLIA# [id number] Blood specimen (specimen) Venous blood / Unknown 10/25/2022 1:48 PM EST 10/25/2022 1:54 PM EST Jt G[facility] BLOOD ORDERABLES Final Re sult Performing Organization Address [facility] Co de Phone Number [facility] documented in this encounter Visit Diagnoses Diagnosis Stage 3a chronic kidney disease (HCC) documented in this encounter
--- OUTSIDE RECORDS SUMMARY | 2025-07-01 14:44 | XMS_ITS | Encounter Summary ---
Author Organization [facility], Address [address] [place] [address] Phone Care Team Providers Care Firewall Engineer Name Role Phone Unavailable Primary Care Provider Unavailabl e Encounter Details Date Type Department Care Team (Late st Contact Info) Description 01/21/2022 Documentation Only [facility], [address] [place] [address] Jt Ochoa PA [address] [place] [address] Social History Tobacco Use Types [...]
== END 2025-07-01 12:55 | disposition home or self-care (01) ==
LOC: HO.HGI 11:51
PROVIDERS: PCP Nurse Practitioner Primary Care; Referring Provider Nurse Practitioner Primary Care; Visit Provider Nurse Practitioner Family
DX: K52.9 Noninfective gastroenteritis and colitis, unspecified (principal); R63.4 Abnormal weight loss; Z12.11 Encounter for screening for malignant neoplasm of colon
CPT/HCPCS: 99213

== ENCOUNTER 2025-07-14 13:54 | Outpatient (AMB) | payer OTHER, SELFPAY ==
--- NOTE | 2025-07-14 13:59 | A.SPINEOV_ITS ---
Intake Visit Reasons: neck pain & numbness Intake Note: Mr. Baeza is here today c/o neck pain and numbness. MRI done @ [facility]. Marketing Planner Required: Yes Marketing Planner Name: Carli Mayer LM Allergies No Known Allergies (No Known Allergies*) Allergy (Verified 07/01/25 12:02) Assessment & Plan Assessment & Plan (1) Spinal stenosis in cervical region: Code(s): M48.02 - Spinal stenosis, cervical region Category: Medical Plan Dear Dr. Rollins, Thank you for referring Albert to our office today. He is a pleasant, complicated 75 year old male who comes in today for evaluation of posterior neck pain. He reports this has been ongoing for several years, however significantly worsened without any inciting incident about 6 months ago. The patient is accompanied to this visit today by his ROAD ROLLER OPERATOR who helps him with basic movements in and out of a chair and with ambulation with his walker. The patient has a fairly difficult time recounting his medical history, even with the aid of his ROAD ROLLER OPERATOR, and he provides very limited information. Most of what I was able to include in this note was from reviewing office visit notes from other services. The patient reports that his posterior neck pain has slowly worsened over the course of the last 6 months to where he is in 10/10 pain all throughout the day. He denies any shooting pains down his upper extremities, however does report he has some baseline right-sided shoulder pain/numbness. He has been evaluated by Orthopedics for right shoulder pain in the past and received cortisone injections in his shoulder with some alleviation of this pain back in 2021. He reports that his neck pain is by far the worst when waking up first thing in the morning, and states that he does get some alleviation of his pain from lying down flat. I attempted to establish a last known well timeframe for the patient, and ascertain when he seemed to progress to the point he is at today (very limited function overall), but unfortunately he was not able to recount this information reliably. He did acknowledge that he was much more functional about 1-2 years ago. Up until about 1 year ago he was able to ambulate with a cane only. He denies any issues with dexterity, but does report some weakness of his hands, with frequent dropping of objects throughout the day (has confounding bilateral carpal tunnel syndrome). He denies any issues with bowel/bladder incontinence. He reports that he is unsure if he has been to phy sical therapy in the past. He is also unsure if he has had injections before, but did state that he had some kind of procedure in his neck. 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 Hx of Arthrosclerotic cardiovascular disease, paroxysmal atrial fibrillation, premature ventricular contractions, supraventricular tachycardia, history of NSTEMI in 2018, history of cubital tunnel release on the right-hand side, history of type 2 diabetes, last A1c unknown but previously reported as 6.0 in 2021 from pain management, history of diabetic peripheral neuropathy, hypertension, hyperlipidemia, nicotine dependence, bilateral carpal tunnel syndrome, hypogonadism, erectile dysfunction. He did have a trial of bilateral Medial Branch Blocks in 2018 at L3, L4, and L5 to address his axial back pain in 2018. Unfortunately, the patient went into cardiac arrest with PEA upon anesthesia induction. Social hx: The patient smokes 1 pack cigarettes per day. Denies any other substance use. Medications: Aspirin, Jardiance, testosterone subcutaneous injections, trazodone, Tylenol, atorvastatin, bisacodyl, calcitriol, clotrimazole, ferrous sulfate, miralax, methylcellulose. Allergies: NKDA Physical exam: The patient is in obvious agony on examination. He is lying down on his back on examination table, providing limited responses to questions. He was able to get up off of the examination table to try ambulating so I could evaluate for spastic gait. His gait is best described as a shuffling gait, with his feet barely clearing off the floor between steps before he relies heavily on his walker for further ambulation. No resting tremor. He rises from a seated position only with assistance from his ROAD ROLLER OPERATOR. His lower extremity strength is surprisingly good given his presentation. He has full 5/5 strength with dorsiflexion, plantar flexion, knee flexion. I would rate his knee extension as about 4/5 and his bilateral iliopsoas testing as about 3/5. His hand screener operator strength is 5/5. His interossei testing is 5/5. His wrist extension/flexion is notably weaker and I would grade it at about 4/5. His biceps and triceps testing is about 4/5 as well. (-) bilateral straight leg raise. (-) Villalobos's. (-) clonus. Imaging review: MRI of the cervical spine completed here at [facility] shows moderate-severe central canal stenosis at C3-4 with moderate right and severe left-sided foraminal stenosis at this level. No evidence of cord signal change or myelomalacia. 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 Impression: Albert is a pleasant, complicated 75 year old male who comes in today for evaluation of posterior neck pain that has worsened over the course of the last 6 months. He has moderate-severe central canal stenosis at C3-4 seen on MRI imaging. He does have worsening gait disturbances, and proximal muscle weakness on exam, which are potentially symptoms of spinal cord compression, however his presentation is out of proportion to what I see on MRI imaging. He has a very extensive cardiac history, including pulseless electrical activity and cardiac arrest the last time he attempted anesthesia for medial branch blocks in the lumbar spine back in 2018. Overall he would be classified as a high risk patient for elective spine surgery. In the absence of cord signal change / myelomalacia, or myelopathic reflexes I would be very hesitant to consider any kind of neurosurgical intervention for this patient. However, given his severe presentation and known worsening of functional status over the last few years, I would like him to come back for a subsequent appointment to be evaluated by my attending neurosurgeon Dr. Millan. Sometimes with complex cases such as this it is good to have a second neurological exam by an expert such as Dr. Millan to ensure there is nothing that is being missed. I will place an order for dynamic cervical spine X-ray imaging to be complete before his appointment with Dr. Millan. Thank you for allowing us to care for your patient. The total time spent with this visit with this patient was 67 minutes reviewing history, physical exam, MRI imaging review, CT scan imaging review, and implementation of treatment plan or further diagnostic testing Lokesh Millan MD,PhD [facility] Coding Level of Care Code New Pt Level 5 (14108) Diagnoses Spinal stenosis in cervical region M48.02
--- OUTSIDE RECORDS SUMMARY | 2025-07-14 16:20 | XMS_ITS | Encounter Summary ---
Author Organization [employer] Address [address] [facility] 7t [place] [address] Care Team Providers Care Drapery And Upholstery Estimator Name Role Phone Kristi Warren Primary Care Provider [phone] Encounter Details Date Type Department Care Team ([facility] Contact Info) Description 11/24/2022 Orders Only [facility] MED & PEDS [address] [place], [place] [phone] Amalia Pierre LPN Social History Tobacco Use [...] 9:00 AM EST Office Visit [facility] MEDICINE [address] [place] [address] Kristi Warren ANP [address] [place] [address] documented as of this encounter Visit Diagnoses Not on filedocumented in this encounter Care Teams Drapery And Upholstery Estimator Relationship Specialty Start Date End Date Kristi Warren ANP [address] [place] [address] PCP - General Family Medicine 03/24/20 [facility] 08/09/24 12/19/24 [facility] 12/09/24 documented as of this encounter
--- OUTSIDE RECORDS SUMMARY | 2025-07-14 16:20 | XMS_ITS | Encounter Summary ---
Author Organization [facility] Address [address] [facility] [address]t [place] [address] Care Team Providers Care Director Of Field Sales Name Role Phone Kristi Warren Primary Care Provider [phone] Reason for Visit * Reason Comments Med Refill Encounter Details Date Type Department Care Team (Late Contact Info) Description 11/18/2022 Refill [facility] MEDICINE [address] [place], [place] [phone] Kristi Warren ANP [address] [place], [place] [phone] Type 2 diabetes mellitus with diabetic nephropathy, with long-term current use of insulin ([facility]) (Primary Dx) Social History Tobacco Use [...] Description 08/21/2025 9:00 AM EST Office Visit [facility] MEDICINE [address] [place] [address] Kristi Warren ANP [address] [place] [address] documented as of this encounter Visit Diagnoses Diagnosis Type 2 diabetes mellitus with diabetic nephropathy, with long-term current use of insulin (HCC)- Primary documented in this encounter Care Teams Director Of Field Sales Relationship Specialty Start Date End Date Kristi Warren ANP [address] [place] [address] PCP - General Family Medicine 03/24/20 [facility] 08/09/24 12/19/24 [facility] 12/09/24 documented as of this encounter
--- OUTSIDE RECORDS SUMMARY | 2025-07-14 16:20 | XMS_ITS | Encounter Summary ---
Author Organization [facility], Address [address] [place] [address] Phone Care Team Providers Care Cyber Threat Analyst Name Role Phone Unavailable Primary Care Provider Unavailabl e Reason for Visit * Reason Comments Med Refill Encounter Details Date Type Department Care Team (Late st Contact Info) Description 10/15/2024 Refill [facility], [address] [place] [address] Jt Ochoa PA [address] [place] [address] Social History Tobacco Use Types [...]
--- OUTSIDE RECORDS SUMMARY | 2025-07-14 16:20 | XMS_ITS | Encounter Summary ---
Author Organization [employer] Address [address] 7[address] [place] [address] Care Team Providers Care Vocal Teacher Name Role Phone Kristi Warren Primary Care Provider [phone] Encounter Details Date Type Department Care Team (Late st Contact Info) Description 05/23/2025 Orders Only [facility] MEDICINE [address] [place], [place] [phone] Kristi Warren ANP [address] [place] [address] Social History Tobacco Use Types Packs/Day Years [...] Description 08/21/2025 9:00 AM EST Office Visit [facility] MEDICINE [address] [place] [address] Kristi Warren ANP [address] [place] [address] documented as of this encounter Goals Goal [...] documented as of this encounter Care Teams Vocal Teacher Relationship Specialty Start Date End Date Kristi Warren ANP [address] [place] [address] PCP - General Family Medicine 03/24/20 [facility] 12/09/24 documented as of this encounter
--- OUTSIDE RECORDS SUMMARY | 2025-07-14 16:20 | XMS_ITS | Encounter Summary ---
Author Organization [facility], Address [address] [place] [address] Phone Care Team Providers Care Patient Coordinator Name Role Phone Unavailable Primary Care Provider Unavailabl e Reason for Visit * Reason Comments Med Refill Encounter Details Date Type Department Care Team (Late st Contact Info) Description 10/20/2024 Refill [facility], [address] [place] [address] Jt Ochoa PA [address] [place] [address] Social History Tobacco Use Types [...]
--- OUTSIDE RECORDS SUMMARY | 2025-07-14 16:20 | XMS_ITS | Encounter Summary ---
Author Organization [employer] Address [address] [facility] 7t [place] [address] Care Team Providers Care Hemotherapist Name Role Phone Kristi Warren Primary Care Provider [phone] Reason for Visit * Reason Onset Date Comments Medication Question 07/15/2024 Encounter Details Date Type Department Care Team ([facility] st Contact Info) Description 07/15/2024 Telephone [facility] MEDICINE [address] [place] [address] Kristi Warren ANP [address] [place] [address] Medication Question Social History Tobacco Use Types [...] medications. The pt was recently discharged from [facility] after being in the hospital for a pneumothorax. Viktoria is concerned with the medications that the pt was discharged with and is apprehensive in regards to giving them to the pt. RN spoke with OMERO Song, who is in agreement that the pt can be scheduled for a [facility] appt. This will be forwarded to [facility] for scheduling. * Telephone Encounter - Trace Castaneda - 07/15/2024 8:46 AM EDT Tc from Viktoria from [facility] requesting a call back to compare medications and to see if the provider would like the patient to continue the medication documented in this encounter Plan of Treatment Upcoming Encounters Date Type Department Care Team (Late st Contact Info) Description 08/21/2025 9:00 AM EST Office Visit [facility] MEDICINE [address] [place] [address] Kristi Warren ANP [address] [place] [address] documented as of this encounter Goals Goal [...] documented as of this encounter Care Teams Hemotherapist Relationship Specialty Start Date End Date Kristi Warren ANP [address] [place] [address] PCP - General Family Medicine 03/24/20 [facility] 08/09/24 12/19/24 [facility] 12/09/24 documented as of this encounter
--- OUTSIDE RECORDS SUMMARY | 2025-07-14 16:20 | XMS_ITS | Encounter Summary ---
Author Organization [employer] [facility] Address [address] [facility] [address] [address] 7t [place] [address] Care Team Providers Care Weaver Narrow Fabrics Name Role Phone Kristi Warren Primary Care Provider [phone] Encounter Details Date Type Department Care Team (Late Contact Info) Description 10/19/2022 Orders Only [facility] MED[facility]INE [address] [place] [address] Mona Porras LPN Social History Tobacco Use [...] Description 08/21/2025 9:00 AM EST Office Visit [facility] [address] [place] [address] Kristi Warren ANP [address] [place], [place] [phone] documented as of this encounter Procedures Procedure Name Priority Date/Time Associated Diagnosis Comments XR FOOT 1-2 VIEWS RIGHT Routine 11/07/2022 11:42 AM EST documented in this encounter Results * XR Foot 1-2 Views Right (11/07/2022 11:42 AM EST) Anatomical Region Laterality Modality Lower Extremities, Foot Right [facility] 11/07/2022 11:4 2 AM EST Narrative 11/09/2022 8:38 PM EST [address] [address] XRay Report Signed Patient: Albert Baeza MR#: [id number] : 1950 Acct:[id number] Age/Sex: 72 / M ADM Date: 11/07/22 Loc: HO.XRAY Attending Dr: Ophelia Hubbard NP Ordering Physician: OPHELIA HUBBARD NP Date of Service: 11/07/22 Procedure(s): XR foot RT 2V Accession Number(s): [id number] cc: OPHLEIA HUBBARD NP EXAMINATION: XR FOOT, RIGHT CLINICAL [...] MD in OV> 11/09/222034 DD/ 1142 TD/TT: Packaging Machine Supplies Distributor: ALBERT Procedure Note Donotuseinterpreter, Image - 11/09/[address] [address] XRay Report Signed Patient: Albert BaezaMR#: [id number] : 1950Acct:[id number] Age/Sex: 72 / MADM Date: 11/07/22 Loc: HO.TYRONE Attending Dr: Ophelia Hubbard NP Ordering Physician: OPHELIA HUBBARD NP Date of Service: 11/07/22 Procedure(s): XR foot RT 2V Accession Number(s): [id number] cc: OPHELIA HUBBARD NP EXAMINATION: XR FOOT, [...] MD in OV> 11/09/222034 DD/ 1142 TD/TT: Packaging Machine Supplies Distributor: ALBERT Authorkamille Provider Result Type Result Stat [facility] External Provider IMG XR PROCEDURES Edited Result - Final documented in this encounter Visit Diagnoses Not on filedocumented in this encounter Care Teams Weaver N[employer] Fabrics Relationship Specialty Start Date End Date Kristi Warren ANP [address] [place] [address] PCP - General Family Medicine 03/24/20 [facility] 08/09/24 12/19/24 [facility] 12/09/24 documented as of this encounter
--- OUTSIDE RECORDS SUMMARY | 2025-07-14 16:20 | XMS_ITS | Encounter Summary ---
Author Organization [employer] Address [address] 7t [place] [address] Care Team Providers Care Aerial Photograph Interpreter Name Role Phone Kristi Warren Primary Care Provider [phone] Encounter Details Date Type Department Care Team (Late st Contact Info) Description 08/12/2024 Telephone [facility] [address] [place], [place] [phone] Kristi Warren ANP [address] [place] [address] Social History Tobacco Use Types Packs/Day Years [...] Description 08/21/2025 9:00 AM EST Office Visit [facility] [address] [place] [address] Kristi Warren ANP [address] [place] [address] documented as of this encounter Goals Goal [...] documented as of this encounter Care Teams Aerial Photograph Interpreter Relationship Specialty Start Date End Date Kristi Warren ANP [address] [place] [address] PCP - General Family Medicine 03/24/20 [facility] 08/09/24 12/19/24 [facility] 12/09/24 documented as of this encounter
--- OUTSIDE RECORDS SUMMARY | 2025-07-14 16:20 | XMS_ITS | Encounter Summary ---
Author Organization [employer] Address [address] [facility] 7t [place] [address] Care Team Providers Care Bladder Cleaner Name Role Phone Kristi Warren Primary Care Provider [phone] Reason for Visit * Reason Onset Date Comments Referral 11/17/2022 Encounter Details Date Type Department Care Team ([facility] st Contact Info) Description 11/17/2022 Telephone [facility] MEDICINE [address] [place] [address] Kristi Warren ANP [address] [place] [address] Referral Social History Tobacco Use Types Packs/Day [...] from pt requesting a referral for a stripper and taper to have toe nails cut Please contact pt at [phone] documented in this encounter Plan of Treatment Upcoming Encounters Date Type Department Care Team (Late st Contact Info) Description 08/21/2025 9:00 AM EST Office Visit [facility] [address] [place] [address] Kristi Warren ANP [address] [place] [address] documented as of this encounter Visit Diagnoses Not on filedocumented in this encounter Care Teams Bladder Cleaner Relationship Specialty Start Date End Date Kristi Warren ANP [address] [place] [address] PCP - General Family Medicine 03/24/20 [facility] 08/09/24 12/19/24 [facility] 12/09/24 documented as of this encounter
--- OUTSIDE RECORDS SUMMARY | 2025-07-14 16:21 | XMS_ITS | Encounter Summary ---
Author Organization [facility], Address [address] [place] [address] Phone Care Team Providers Care Pan Puller Name Role Phone Unavailable Primary Care Provider Unavailabl e Encounter Details Date Type Department Care Team (Late st Contact Info) Description 07/30/2024 Documentation Only [facility], - Angel Caicedo [address] [place] [phone] Iona Salas [address] [place] [address] Social History Tobacco Use Types [...]
--- OUTSIDE RECORDS SUMMARY | 2025-07-14 16:21 | XMS_ITS | Encounter Summary ---
Author Organization [employer] Address [address] 7t [place] [address] Care Team Providers Care Cigarette Seller Name Role Phone Kristi Warren Primary Care Provider [phone] Encounter Details Date Type Department Care Team (Late st Contact Info) Description 08/15/2024 Telephone [facility] MEDICINE [address] [place], [place] [phone] Kristi Warren ANP [address] [place] [address] Social History Tobacco Use Types Packs/Day Years [...] - 08/15/2024 11:11 AM EST TC from Vkitoria William EDUCATIONAL SPEECH LANGUAGE CLINICIAN of pt stated that pt doesn't have no more meds due to pt is taking doseof trazodone of 7 days in 1 night also taking a lot of gabapentin in a Day and regular medication pt is crushing them and put in on sink is no taking none of his medication. Pt used [facility] and he is not due until August 30. [facility] requesting a call from PCP to discuss pt medication. PCP DR. Warren documented in this encounter Plan of Treatment Upcoming Encounters Date Type Department Care Team (Late st Contact Info) Description 08/21/2025 9:00 AM EST Office Visit [facility]INE [address] [place], [place] [phone] Kristi Warren ANP [address] [place] [address] documented as of this encounter Goals Goal Patient Goal Type Associated Problems Recent Progress Patient-Stated? Author Blood Pressure < 140/90 Blood Pressure 104/70(2024 1:09 PM EDT) No Mike Harris PharmD Hemoglobin A1c < 7.5 Result Component 6.5( 5 3:05 PM EDT) No iMke Harris PharmD documented as of this encounter Visit Diagnoses Not on filedocumented in this encounter Additional Health Concerns Assessment Noted Time PHQ-9 Depression Total Score: 13 024 1:24 PM EDT documented as of this encounter Care Teams Cigarette Seller Relationship Specialty Start Date End Date Kristi Warren ANP [address] [place] [address] PCP - General Family Medicine 03/24/20 [facility] 08/09/24 12/19/24 [facility] 12/09/24 documented as of this encounter
--- OUTSIDE RECORDS SUMMARY | 2025-07-14 16:21 | XMS_ITS | Encounter Summary ---
Author Organization [employer] Address [address] [facility] 7t [place] [address] Care Team Providers Care Skein Spooler Name Role Phone Kristi Warren Primary Care Provider [phone] Reason for Visit * Reason Onset Date Comments Referral 03/29/2023 Encounter Details Date Type Department Care Team ([facility] st Contact Info) Description 03/29/2023 Telephone [facility] MEDICINE [address] [place] [address] Kristi Warren ANP [address] [place] [address] Referral Social History Tobacco Use Types Packs/Day [...] referral for Podiatry. Please contact pt at [phone] South Sudanese Speaker documented in this encounter Plan of Treatment Upcoming Encounters Date Type Department Care Team (Late st Contact Info) Description 08/21/2025 9:00 AM EST Office Visit [facility] [address] [place] [address] Kristi Warren ANP [address] [place] [address] documented as of this encounter Visit Diagnoses Not on filedocumented in this encounter Care Teams Skein Spooler Relationship Specialty Start Date End Date Kristi Warren ANP [address] [place] [address] PCP - General Family Medicine 03/24/20 [facility] 08/09/24 12/19/24 [facility] 12/09/24 documented as of this encounter
--- OUTSIDE RECORDS SUMMARY | 2025-07-14 16:21 | XMS_ITS | Clinical Summary ---
Author Organization [facility], Address [address] [place] [address] [place] [address] Phone Care Team Providers Care Systems Planner Name Role Phone Unavailable Primary Care Provider [...] tablet 11 3 Active Vitamin D, Ergocalciferol, 47525 units capsule Use 500 mcg in the [...] Hypercholesterolemia 09/24/2019 [address] [facility] congestive heart failure 09/24/2019 01/24/2022 Microalbuminuria 09/24/2019 [...] PM EST) Hemoglobin A1C 6.0(H) (4.0-5.6) % [facility] Comment: MONITORING: In known diabetic patients, hemoglobin A1c targets should be discussed with health care provider. DIAGNOSTIC USE: The [place] Diabetes Association (ADA) and the World Health [...] Supplement 1 Testing performed or reported by [facility], a Service of [facility], [address] [place] [address] Elvira Lopez MD, Load Planner [facility]# [id number] Blood specimen (specimen) Venous blood / Unknown 10/25/2022 1:48 PM EST 10/25/2022 1:54 PM EST us [facility] BLOOD ORDERABLES Final Re sult [facility] from Last 3 Months or Most Recently Relevant to Health Maintenance Insurance [facility] One Care Dual SNP ([id number]) [place] [id number] [place] [id number] , [place] [id number]
--- OUTSIDE RECORDS SUMMARY | 2025-07-14 16:21 | XMS_ITS | Encounter Summary ---
Author Organization [employer] Address [address] [facility] 7t [place] [address] Care Team Providers Care Spiral Winder Name Role Phone Kristi Warren Primary Care Provider [phone] Reason for Visit * Reason Onset Date Comments Durable Medical Equipment 04/20/2023 Encounter Details Date Type Department Care Team (Late st Contact Info) Description 04/20/2023 Telephone [facility]INE [address] [place] [address] Kristi Warren ANP [address] [place] [address] Durable Medical Equipment Social History Tobacco Use [...] Description 08/21/2025 9:00 AM EST Office Visit [facility] [address] [place] [address] Kristi Warren ANP [address] [place] [address] documented as of this encounter Visit Diagnoses Not on filedocumented in this encounter Care Teams Spiral Winder Relationship Specialty Start Date End Date Kristi Warren ANP [address] [place], [place] [phone] PCP - General Family Medicine 03/24/20 [facility] 08/09/24 12/19/24 [facility] 12/09/24 documented as of this encounter
--- OUTSIDE RECORDS SUMMARY | 2025-07-14 16:21 | XMS_ITS | Encounter Summary ---
Author Organization [employer] Address [address] [facility] 7t [place] [address] Care Team Providers Care Hose Inspector And Patcher Name Role Phone Kristi Warren Primary Care Provider [phone] Reason for Visit * Reason Onset Date Comments Med Refill 04/12/2023 Encounter Details Date Type Department Care Team ([facility] st Contact Info) Description 04/12/2023 Telephone [facility]INE [address] [place] [address] Kristi Warren ANP [address] [place] [address] Med Refill Social History Tobacco Use Types [...] Description 08/21/2025 9:00 AM EST Office Visit [facility] [address] [place] [address] Kristi Warren ANP [address] [place] [address] documented as of this encounter Visit Diagnoses Not on filedocumented in this encounter Care Teams Hose Inspector And Patcher Relationship Specialty Start Date End Date Kristi Warren ANP [address] [place] [address] PCP - General Family Medicine 03/24/20 [facility] 08/09/24 12/19/24 [facility] 12/09/24 documented as of this encounter
--- OUTSIDE RECORDS SUMMARY | 2025-07-14 16:21 | XMS_ITS | Encounter Summary ---
Author Organization [employer] Address [address] [facility] 7t [place] [address] Care Team Providers Care Cable Cutter And Swager Name Role Phone Kristi Warren Primary Care Provider [phone] Reason for Visit * Reason Onset Date Comments Nurse Triage 04/18/2023 Encounter Details Date Type Department Care Team ([facility] st Contact Info) Description 04/18/2023 Telephone [facility] MEDICINE [address] [place] [address] Kristi Warren ANP [address] [place] [address] Nurse Triage Social History Tobacco Use Types [...] 04/18/2023 3:57 PM EDT Called pt. Via [employer] nuisance wildlife specialist [phone] Nadja. Pt. States that he had an appt. With Provider Kelvin today and he was feeling dizzy after his appt. While driving and had to pullman car clerk. Pt. States hehad some blood work done [...] accepted this outcome Please contact pt at [phone] (Thai speaker) documented in this encounter Plan of Treatment Upcoming Encounters Date Type Department Care Team (Late st Contact Info) Description 08/21/2025 9:00 AM EST Office Visit [facility] MEDICINE [address] [place] [address] Kristi Warren ANP [address] [place] [address] documented as of this encounter Visit Diagnoses Not on filedocumented in this encounter Care Teams Cable Cutter And Swager Relationship Specialty Start Date End Date Kristi Warren ANP [address] [place] [address] PCP - General Family Medicine 03/24/20 [facility] 08/09/24 12/19/24 [facility] 12/09/24 documented as of this encounter
--- OUTSIDE RECORDS SUMMARY | 2025-07-14 16:21 | XMS_ITS | Patient Health Record ---
Author Organization [facility] Address [address] [place] [address] Care Team Providers Care Stand Grinder Name Role Phone Kristi Warren Primary Care Provider Fan Simons Unavailable [phone] Allergies No Known Allergies Reason For Referral [...] Problem Acquired hammer toe of right foot (90495223614208 05) Other hammer toe(s) (acquired), right foot (M20.41) Active confirmed Problem Type 2 diabetes mellitus with peripheral angiopathy (577323866) Type 2 diabetes mellitus with diabetic peripheral angiopathy without gangrene (E11.51) Active confirmed Problem Acquired hammer toe of left foot (72000371409352 03) Other hammer toe(s) (acquired), left foot (M20.42) Active confirmed Plan Of Treatment Pending Test Test Name Order Date 65954-XGUHINX NAIL, 6 OR MORE 09/14/2020 58060-UXBMIYY NAIL, 6 OR MORE 12/14/2020 07469-LSIXXUR NAIL, 6 OR MORE 02/22/2021 92154-JIDGSUQ NAIL, 6 OR MORE 04/29/2021 70858-EGFXECY NAIL, 6 OR MORE 10/20/2021 82985-LKERVAD NAIL, 6 OR MORE 12/30/2021 87745-YVSDHLJ NAIL, 6 OR MORE 03/23/2022 86595-ICDDCDO NAIL, 6 OR MORE 06/06/2022 23050-YGNFNCE NAIL, 6 OR MORE 08/11/2021 40848-XFQN SKIN LESIONS, OVER 4 08/11/20 21 57684-OMYW SKIN LESIONS, OVER 4 06/06/20 22 20835-GXDV SKIN LESIONS, OVER 4 12/31/19 22 37338-BIGE SKIN LESIONS, OVER 4 03/23/20 22 33977-NUZD SKIN LESIONS, OVER 4 10/20/19 22 78363-DYMI SKIN LESIONS, OVER 4 04/29/20 21 35818-MSTC SKIN LESIONS, OVER 4 02/23/20 21 02269-ILTM SKIN LESIONS, OVER 4 12/15/19 21 62440-NXYT SKIN LESIONS, OVER 4 09/14/20 20 Insurance Providers Payer Name Payer Address Payer Phone Subscriber Number Group Number Insured Name Patient Relationship to Insured Coverage Start Date Coverage End Date [facility] [employer] Claims [address] J[place] Rahman [id number] [phone] [id number] Albert Baeza Self - patient is the insured Medical (General) History Medical History History ICD Code Diabetic Surgical History Surgery Date(Month/Year) back surgery Hospitalization History Reason Date(Month/Year) [facility]- swollen legs
--- OUTSIDE RECORDS SUMMARY | 2025-07-14 16:21 | XMS_ITS | Encounter Summary ---
Author Organization [facility], Address [address] [place] [address] Phone Care Team Providers Care Nursing Attendant Name Role Phone Unavailable Primary Care Provider Unavailabl e Reason for Visit * Reason Comments Med Refill Encounter Details Date Type Department Care Team (Late st Contact Info) Description 09/15/2023 Refill [facility], [address] [place] [address] Jt Ochoa PA [address] [place] [address] Social History Tobacco Use Types [...]
--- OUTSIDE RECORDS SUMMARY | 2025-07-14 16:21 | XMS_ITS | Encounter Summary ---
Author Organization [employer] Address [address] [facility] 7t [place] [address] Care Team Providers Care Examination Supervisor Name Role Phone Kristi Warren Primary Care Provider [phone] Reason for Visit * Reason Onset Date Comments Nurse Triage 04/06/2023 Encounter Details Date Type Department Care Team ([facility] st Contact Info) Description 04/06/2023 Telephone [facility] MEDICINE [address] [place] [address] Kristi Warren ANP [address] [place] [address] Nurse Triage Social History Tobacco Use Types [...] Description 08/21/2025 9:00 AM EST Office Visit [facility] MEDICINE [address] [place] [address] Kristi Warren ANP [address] [place] [address] documented as of this encounter Visit Diagnoses Not on filedocumented in this encounter Care Teams Examination Supervisor Relationship Specialty Start Date End Date Kristi Warren ANP [address] [place] [address] PCP - General Family Medicine 03/24/20 [facility] 08/09/24 12/19/24 [facility] 12/09/24 documented as of this encounter
--- OUTSIDE RECORDS SUMMARY | 2025-07-14 16:21 | XMS_ITS | Encounter Summary ---
Author Organization [employer] Address [address] [facility] 7t [place] [address] Care Team Providers Care Traffic Chief Name Role Phone Kristi Warren Primary Care Provider [phone] Reason for Visit * Reason Onset Date Comments ER Follow-up 04/22/2025 fyi 04/22/2025 Encounter Details Date Type Department Care Team (Late st Contact Info) Description 04/22/[address] [facility] MEDICINE [address] [place], [place] [phone] Kristi Warren ANP [address] [place], [place] [phone] ER Follow-up; Social History Tobacco Use Types [...] 2:30pm 04/22/25. Received call back from Ivette Ton Container Shipper to Dr Almazan. Pt had nurse visit last Monday04/18/25 and was instructed to hold metoprolol and furosemide. His next appt is 04/25/25 with CECILY Shirley at [facility] cardiology, and has Echo scheduled for 05/01/25. [...] office who is requesting office note from [facility] visit on 04/18/25.Per [facility], only nursing note available for review (copied below). Per note, pt to hold metoprolol and lasix (already being held). Called [facility] Cardiology and left message for medical records assistant requesting call back to see if longer [...] : Date: 04/19/25 Hospital: Urgent care in [place] Seen for: neck pain Symptomatic No Pt was prescribed baclofen *sick on site visit scheduled for 04/[address] Okeefe has been canceled due to noty being needed. documented in this encounter Plan of Treatment Upcoming Encounters Date Type Department Care Team (Late st Contact Info) Description 08/21/2025 9:00 AM EST Office Visit [facility] MEDICINE [address] [place] [address] Kristi Warren ANP [address] [place], [place] [phone] documented as of this encounter Goals Goal [...] documented as of this encounter Care Teams Traffic Chief Relationship Specialty Start Date End Date Kristi Warren ANP [address] [place] [address] PCP - General Family Medicine 03/24/20 [facility] 12/09/24 documented as of this encounter
--- OUTSIDE RECORDS SUMMARY | 2025-07-14 16:21 | XMS_ITS | Encounter Summary ---
Author Organization [facility], Address [address] [place] [address] Phone Care Team Providers Care All Terrain Vehicle Racer Name Role Phone Unavailable Primary Care Provider Unavailabl e Encounter Details Date Type Department Care Team (Late st Contact Info) Description 07/30/2024 Documentation Only [facility], - Angel Caicedo [address] [place] [phone] Iona Salas [address] [place] [address] Social History Tobacco Use Types [...]
--- OUTSIDE RECORDS SUMMARY | 2025-07-14 16:21 | XMS_ITS | Clinical Summary ---
Author Organization [employer] Address [address] [place] [address] Care Team Providers Care Steep Tender Name Role Phone Kristi Warren Primary Care Provider [phone] Allergies No known active allergies Medications * [...] miscIndications: Type 2 diabetes mellitus without complications (HCC) TEST BLOOD SUGAR 2-3 TIMES PER DAY [...] tablet 3 08/07/20 24 Active Continuous Glucose Regional Driver (FreeStyle Sherley 2 [place]) deviceIndication s:Type 2 diabetes mellitus with stage 3 chronic kidney disease, with long-term current use of insulin, unspecified whether stage 3a or 3b CKD (HCC) USE DIRECTED SCAN EVERY 8 HOURS 1 each 08/07/20 24 Active Blood Glucose Monitoring Suppl (FreeStyle [place] Lite) w/Device kit USE DIRECTED TO TEST BLOOD SUGAR THREE TIMES DAILY 1 kit 08/07/20 24 Active naloxone (Narcan) 4 mg/0.1 mL nasal sprayIndications :Misuse of medication,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 May repeat every 2-3 minutes if needed, alternating nostrils, until medical assistance becomes available. 2 each 08/16/202024 Active Continuous Glucose Sensor (FreeStyle Sherley 2 Sensor) miscIndications: Type 2 diabetes mellitus with stage 3 chronic kidney disease, with long-term current use of insulin, unspecified whether stage 3a or 3b CKD ([facility]) USE DIRECTED TO TEST BLOOD SUGAR CHANGE EVERY 14 DAYS 2 each 11/20/19 Active FREESTYLE LITE test stripIndications :Type 2 diabetes mellitus with unspecified complications ([facility]) test blood sugars twice a day 100 each 12/21/192025 Active Emollient (CeraVe Daily Moisturizing) lotionIndication s:Dry skin Apply 4 g topically 2 times daily. 355 mL 01/08/20 Active metoprolol succinate XL (Toprol XL) 25 MG 24 hr tabletIndication s:Essential hypertension Take 0.5 tablets (12.5 mg) by mouth Once per day. Do not crush or chew. 15 tablet 04/01/202025 Active cilostazol (Pletal) 100 MG tablet TAKE 1 TABLET BY MOUTH TWICE DAILY AT NOON AND BEDTIME 01/30/20 Active Skin Protectants, Misc. (Eucerin Original Healing) creamIndications :Dry skin Apply 4 g topically 2 times daily. To legs and arms 454 g 05/12/20 Active capsaicin (Capzasin-HP) 0.1 % creamIndications :Neck pain Apply 2g as needed up to twice daily for pain 42.5 g 05/12/20 Active Aspirin Low Dose 81 MG EC tabletIndication s:History of non-ST elevation myocardial infarction (NSTEMI) TAKE 1 TABLET BY MOUTH AT BEDTIME 90 tablet 05/20/20 Active Continuous Glucose Sensor (FreeStyle Sherley 2 Plus Sensor) miscIndications: Diabetic nephropathy associated with type 2 diabetes mellitus ([facility]) 1 each every 15 days. Change sensor every 15 days 2 each 11 08/25/20 25 Active Jardiance 25 MGIndications:Ty pe 2 diabetes mellitus with stage 3 chronic kidney disease, with long-term current use of insulin, unspecified whether stage 3a or 3b CKD (HCC) TAKE 1 TABLET BY MOUTH EVERY MORNING 90 tablet 1 06/24/20 25 Active traZODone (Desyrel) 100 MG tabletIndication s:Insomnia, unspecified type TAKE 1 AND 1/2 TABLETS BY MOUTH AT BEDTIME 45 tablet 1 06/24/20 25 Active empagliflozin (Jardiance) 25 MGIndications:Ty pe 2 diabetes mellitus with stage 3 chronic kidney disease, with long-term current use of insulin, unspecified whether stage 3a or 3b CKD (HCC) TAKE 1 TABLET BY MOUTH EVERY MORNING [...] Frail elderly 04/01/2025 Moderate recurrent major depression (CMS/HCC) Assessment & Plan (08/22/2024 2:04 PM EST): [...] intervention , Patient to reach out to [facility] team as needed, Comply with medication , and Patient to engage in OP therapy Mild anxiety 08/22/2024 History of non-ST elevation myocardial infarctio n (NSTEMI) 08/06/2024 Overview (08/06/2024): (from coronary hypoperfusion during cardiac arrest after elective lumbar injection 09/28/18) Paroxysmal atrial fibrillation ([facility]) 024 Assessment & Plan (04/15/2025 2:49 PM EDT): I recommended for patient to go to the hospital with ambulance, he refused and signed AMA Assessment & Plan (08/06/2024 3:33 PM EDT): - patient has Holter monitor in June 2024 which was ordered by his concession supervisor. Results did not show atrial fibrillation. - the patient was seen by a concession supervisor while int hospital and telemetry tracing showed atrial fibrillation per concession supervisor. - the patient was started on eliquis but it was not continued after [facility]. - due to increase risk of fall, will consult with concession supervisor. The patient is taking aspirin and cilostazol for PAD. Will consult with concession supervisor. Metabolic encephalopathy 08/06/2024 Assessment & Plan (08/06/2024 [...] 09/24/2019 IgA nephropathy 09/24/2019 Bradycardic cardiac arrest (CMS/HCC) 10/04/2018 Hemorrhoids 08/29/2017 Restless legs 08/01/2017 BPH [...] to low BP. - will consult with concession supervisor for optimal BP management plan. Mood disorder 07/04/2017 Onychomycosis 07/04/2017 Osteoarthritis of right knee 07/04/2017 Tobacco dependence syndrome 07/04/2017 Stage 3 chronic kidney disease (CMS/HCC) 017 Overview (05/25/2023): Update for Diagnosis Load Retinopathy 05/29/2012 Encounters Date Type Department Care Team Description 07/01/2025 Orders Only GENERIC EXTERNAL DATA DEPARTMENT Provider, Generic External Data 06/23/2025 Refill [facility] [place] [address] Kristi Warren ANP Type 2 diabetes mellitus with stage 3 chronic kidney disease, with long-term current use of insulin, unspecified whether stage 3a or 3b CKD ([facility]); Insomnia, unspecified type 06/18/2025 Telephone [facility] [place] [address] Kristi Warren ANP Durable Medical Equipment 06/12/2025 1:00 PM EDT Office Visit [facility] [place] [address] Kristi Warren ANP Diabetic peripheral neuropathy ([facility]) (Primary Dx); Cervical stenosis of spine; Moderate protein-calorie malnutrition ([facility]); Frail elderly; Failed back surgical syndrome; Restless legs 06/12/2025 Travel 06/11/2025 Telephone [facility] [place] [address] Kristi Warren ANP Durable Medical Equipment 06/05/2025 Telephone [facility] [place] [address] Kristi Warren ANP Prior Authorization 06/02/2025 Refill [facility] [place] [address] Katiana Villarreal, RN Diabetic nephropathy associated with type 2 diabetes mellitus ([facility]) (Primary Dx) 05/27/2025 Orders Only GENERIC EXTERNAL DATA DEPARTMENT Provider, Generic External Data 05/26/2025 Telephone [facility] [place] [address] Kristi Warren ANP 05/23/2025 Orders Only [facility] [place] [address] Kristi Warren ANP 05/23/2025 Refill [facility] [place] [address] Beny Lentz MD Insomnia, unspecified type 05/20/2025 Orders Only [facility] [address] [place], [place] [address] [place] [address] Kristi Warren ANP Abnormal weight loss (Primary Dx) 05/20/2025 Telephone [place] [facility] [place] [address] ABD/PELVIS ORDER 05/19/2025 Refill [facility] [place] [address] Kristi Warren ANP History of non-ST elevation myocardial infarction (NSTEMI) 05/12/2025 1:00 PM EDT Office Visit [facility] [place] [address] Kristi Warren ANP Neck pain (Primary Dx); Dry skin; Easy bruising; Fatigue, unspecified type; Anorexia; Moderate protein-calorie malnutrition (CMS/HCC) 05/12/2025 Travel 05/09/20[address] [place] [address] Kristi Warren ANP chart prep 05/09/2025 [address] [place] [address] Kristi Warren ANP Nurse Triage 04/29/[address] [address] Kristi Warren ANP Durable Medical Equipment 04/25/2025 [address]ill [address] [place] [address] Kristi Warren ANP Insomnia, unspecified type 04/23/2025 Telephone [place] [facility] [address] [place] [address] [address] [address] ABD/PELVIS ORDER 04/22/[address] [address] Kristi Warren ANP ER Follow-up; fyi 04/19/2025 Travel 04/18/2025 [address] [place] [address] Norma Campos, Kathleen 04/18/[address] [address] Kristi Warren ANP Nurse Triage 04/16/[address] [place] [address] Norma Campos, Kathleen 04/15/2025 1:20 PM EDT Office Visit [facility] [address] [place] [phone] Amy Fry MD Paroxysmal atrial fibrillation (CMS/HCC) (Primary Dx) 04/15/2025 Orders Only GENERIC EXTERNAL DATA DEPARTMENT Provider, Generic External Data 04/15/2025 Telephone [facility] [address] [place] [address] Kristi Warren, BATSHEVA Nurse Outreach; 911 dispatched 04/15/2025 Telephone [facility] [address] [place] [address] Kandace Harris, roll forger 04/15/2025 Travel from Last 3 Months Immunizations Immunization Administration [...] is your housing situation today? I have roseannacelestino hannah 05/24/[address] you [...] Description 08/21/2025 9:00 AM EST Office Visit [facility] [address] [place] [address] Kristi Warren, ANP [address] [place] [address] Health Maintenance Due Date Last Done Comments CT Colonography 1950 FIT DNA/Cologuard 1950 FIT 1950 FOBT 1950 Sigmoidoscopy 1950 Colonoscopy 07/26/2020 07/26/2010 Colorectal Cancer Screening 07/26/2020 Hepatitis B Vaccines (2 of 3 - 19+ 3-dose series) 09/13/2024 08/16/2024 COVID-19 Vaccine ( season) 2025 08/06/2024, 07/11/2023, 07/14/2022, Additional history exists Influenza Vaccine (#1) 2025 4, 07/12/2022, 07/23/2021, Additional history exists Diabetes: Hemoglobin [...] 6.5( 3:05 PM EDT) No Mike Harris, Kathleen Procedures Procedure Name Priority Date/Time Associated Diagnosis Comments VITAMIN D 25-OH (D2 AND D3) Routine 07/01/2025 1:19 PM EDT VITAMIN B12/FOLATE, SERUM PANEL Routine 07/01/2025 1:19 PM EDT TSH W/REFLEX TO FT4 Routine 07/01/2025 1 :19 PM EDT LIPASE Routine 07/01/2025 1:19 PM EDT CBC Routine 07/01/2025 1:19 PM EDT TESTOSTERONE, [...] 2:50 PM EDT Paroxysmal atrial fibrillation (CMS/HCC) HEPATITIS C AB W/REFL TO HCV RNA, QN, PCR Routine 03/31/2025 11:41 AM EDT Unintentional weight loss LIPID PANEL, STANDARD Routine 03/31/2025 11:41 AM EDT Diabetic nephropathy associated with type 2 diabetes mellitus (CMS/HCC) POCT GLYCATED HEMOGLOBIN, TOTAL Routine 03/13/2025 3:05 PM EDT Diabetic nephropathy associated with type 2 diabetes mellitus (CMS/HCC) HM COLONOSCOPY Routine 07/26/2010 from Last 3 Months or Most Recently Relevant to Health Maintenance Results * VITAMIN D 25-OH (D2 AND D3) (07/01/2025 1:19 PM EDT) Vitamin D, 25-OH, D2 25 ng/mL [facility] Comment:This test was develo ped and its analytical performancecharacteristics have been determined by [facility], [place]. It hasnot been cleared or approved by the U.S. Food and DrugAdministration. This assay has been validated pursuantto the CLIA regulations and is used for clinicalpurposes.THIS TEST WAS PERFORMED AT:[employer]/[id number] [place] [address]YDQLHDADAVONTE MCCURDY MD,PHD Vitamin D, 25-OH, D3 24 ng/mL [facility] Comment:This test was develo ped and its analytical performancecharacteristics have been determined by [facility] [place]. It hasnot been cleared or approved by the U.S. Food and DrugAdministration. This assay has been validated pursuantto the CLIA regulations and is used for clinicalpurposes. Vitamin D, 25-OH, Total 49 30 - 100 ng/mL [facility] Comment:Vitamin D, 25-Hydrox y reports concentrations of twocommon forms, 25-OHD2 and 25-OHD3. 25-OHD3 indicatesboth endogenous production and supplementation.25-OHD2 is an indicator of exogenous sources such asdiet or supplementation. Therapy is based onmeasurement of Total 25-OHD, with levels <20 ng/mLindicative of Vitamin D deficiency, while levelsbetween 20 ng/mL and 30 ng/mL suggest insufficiency.Optimal levels are > or = 30 ng/mL.For additional information, please refer tohttp://education.Zapnip/faq/HTO740(This link is being provided for informational/educational purposes only.) 07/01/2025 1:19 PM EDT 07/01/2025 1:19 PM EDT us Generic External Data Provider LAB BLOOD ORDERAB LES Final Result Performing Organization Address [facility]/ZIP Co de Phone Number [facility] [address] [place] [phone] * Vitamin B12 (Cobalamin) and Folate Panel, Serum (07/01/2025 1:19 PM EDT) Vitamin B12 271 200 - 900 pg/mL [facility] Comment:NORMAL 200-900 PG/ML INDETERMINATE 160-199 PG/ML DEFICIENT < 160 PG/ML Folate 6.2 > or = 4.0 ng/mL [facility] Comment:Reference Values:> o r = 4.0 ng/mL< 4.0 ng/mL suggests folate deficiency Methotrexate, aminopterin and folinic acid(leucovorin) are chemotherapeutic agents whose molecularstructures are similar to folate; therefore, the Architectfolate assay cannot be used for patients using these drugs. 07/01/2025 1:19 PM EDT 07/01/2025 1:19 PM EDT us Generic External Data Provider LAB BLOOD ORDERAB LES Final Result Performing Organization Address [facility] Co de Phone Number [facility] [address] [place] [phone] * TSH with Reflex to Free T4 (07/01/2025 1:19 PM EDT) TSH reflex Free T4 2.50 0.32 - 4.0 uIU/mL [facility] 07/01/2025 1:19 PM EDT 07/01/2025 1:19 PM EDT us Generic External Data Provider LAB BLOOD ORDERAB LES Final Result Performing Organization Address City/[facility]/ZIP Co de Phone Number [facility] [address] [place] [phone] * (ABNORMAL) CBC (07/01/2025 1:19 PM EDT) Only the most recent of2 resultswithin the time period is included. White Blood Count 6.8 4.8 - 10.8 X10*3/uL [facility] Red Blood Count 4.64 4.60 - 5.80 X10*6/uL [facility] Hemoglobin 16.0 14.0 - 18.0 g/dl [facility] Hematocrit 46.9 42.0 - 52.0 % [facility] Mean Corpuscular Volume 101.1(H) 80.0 - 98.0 fL [facility] Mean Corpuscular Hemoglobin 34.5(H) 27.0 - 33.0 pg [facility] Mean Corpuscular HGB Conc 34.1 31.0 - 36.0 g/dl [facility] Red Cell Distribution Width 14.0 11.0 - 16.0 % [facility] Platelet Count 202 160 - 400 X10*3/uL [facility] Mean Platelet Volume 10.0 9.4 - 12.4 fL [facility] NRBC Pct Auto 0.0 0.0 - 0.2 /100WBC [facility] NRBC Abs Auto 0.000 0.0 - 0.012 X10*3/uL [facility] 07/01/2025 1:19 PM EDT 07/01/2025 1:19 PM EDT us Generic External Data Provider LAB BLOOD ORDERAB LES Final Result [facility] [address] [place] [phone] * Lipase (07/01/2025 1:19 PM EDT) Lipase 33 8 - 78 U/L [facility] 07/01/2025 1:19 PM EDT 07/01/2025 1:19 PM EDT us Generic External Data Provider LAB BLOOD ORDERAB LES Final Result Performing Organization Address [facility] Co de Phone Number [facility] [address] [place] [phone] * Testosterone, Total, males (Adult), IA (05/27/2025 9:04 AM EDT) Testosterone, Total 300 250 - 1100 ng/dL [facility] Comment:Men with clinically significant hypogonadalsymptoms and testosterone values repeatedly inthe range of the 200-300 ng/dL or less, maybenefit from testosterone treatment afteradequate risk and benefits counseling.For additional information, please refer tohttp://education.Fivetran/faq/[email or web address](This link is being provided for informational/educational purposes only.)This test was developed and its analytical performancecharacteristics have been determined by [facility], [place]. It hasnot been cleared or approved by the U.S. Food and DrugAdministration. This assay has been validated pursuantto the CLIA regulations and is used for clinicalpurposes.THIS TEST WAS PERFORMED AT:[employer]/[id number] [place] [address]ISUKBYVDAVONTE MCCURDY MD,PHD 05/27/2025 9:04 AM EDT 05/27/2025 9:04 AM EDT us Generic External Data Provider LAB BLOOD ORDERAB LES Final Result Performing Organization Address [facility]/ZIP Co de Phone Number [facility] [address] [place] [phone] * PSA,Total (05/27/2025 9:04 AM EDT) Prostate Specific Antigen 0.38 <0.05 - 4.0 ng/mL [facility] Comment:PSA methodology: Abb wendy Alinity i ChemiluminescentMicroparticle Immunoassay (CMIA) 05/27/2025 9:04 AM EDT 05/27/2025 9:04 AM EDT Generic External Data Provider LAB BLOOD ORDERAB LES Final Result Performing Organization Address [facility] Co de Phone Number [facility] [address] [place] [phone] * (ABNORMAL) High Sensitivity Troponin I (04/15/2025 4:07 PM EDT) Pathologist [facility] TROPONIN I HIGH SENSITIVITY 35.7(H) <3.5 - 35.0 ng/L [facility] Comment:The [place]eno high sens itivity Troponin-I results should beused in conjunction with other diagnostic information suchas ECG, clinical observations and information, and patientsymptoms to aid in the diagnosis of MD. 04/15/2025 4:07 PM EDT 04/15/2025 4:10 PM EDT Generic External Data Provider LAB BLOOD ORDERAB LES Final Result Performing Organization Address [facility] de Phone Number [facility] [address] [place] [phone] * SARS-CoV-2 RNA, Influenza A/B, and RSV RNA, Ql NAAT (04/15/2025 4:06 PM EDT) [facility] Influenza A PCR NEGATIVE Negative [facility] Influenza B PCR NEGATIVE Negative [facility] Resp Syncy Virus RNA Qual PCR NEGATIVE Negative [facility] SARS COV2 PCR NEGATIVE Negative [facility] Comment:All test results mus t [...] use by authorized laboratories.Testing performed on the [employer] GeneXpert utilizingreal-time RT-PCR.All SARS CoV2 and positive influenza A/B results arereported to [facility]. 04/15/2025 4:06 PM EDT 04/15/2025 4:10 PM EDT us Generic External Data Provider LAB MICROBIOLOGY - GENERAL ORDERABLES Final Result [facility] [address] [place] [phone] * (ABNORMAL) CBC auto differential (04/15/2025 4:06 PM EDT) White Blood Count 8.2 4.8 - 10.8 X10*3/uL [facility] Red Blood Count 4.58(L) 4.60 - 5.80 X10*6/uL [facility] Hemoglobin 15.6 14.0 - 18.0 g/dl [facility] Hematocrit 44.5 42.0 - 52.0 % [facility] Mean Corpuscular Volume 97.2 80.0 - 98.0 fL [facility] Mean Corpuscular Hemoglobin 34.1(H) 27.0 - 33.0 pg [facility] Mean Corpuscular HGB Conc 35.1 31.0 - 36.0 g/dl [facility] Red Cell Distribution Width 14.1 11.0 - 16.0 % [facility] Platelet Count 156(L) 160 - 400 X10*3/uL [facility] Mean Platelet Volume 9.6 9.4 - 12.4 fL [facility] Neutrophils Percent Auto 56.6 45 - 73 % [facility] Imm Gran Pct Auto 0.4 0.0 - 0.4 % [facility] Lymphocytes Percent Auto 31.7 20 - 40 % [facility] Monocytes Percent Auto 9.9 2 - 11 % [facility] Eosinophils Percent Auto 0.9 0 - 4 % [facility] Basophils Percent Auto 0.5 0 - 2 % [facility] NRBC Pct Auto 0.2 0.0 - 0.2 /100WBC [facility] Neutrophils Absolute Auto 4.6 2.0 - 8.3 x10*3/uL [facility] Imm Gran Abs Auto 0.03 0.00 - 0.03 X10*3/uL [facility] Lymphocytes Absolute Auto 2.6 1.2 - 4.9 X10*3/uL [facility] Monocytes Absolute Auto 0.8 0.1 - 1.2 X10*3/uL [facility] Eosinophils Absolute Auto 0.1 0.0 - 0.4 X10*3/uL [facility] Basophils Absolute Auto 0.0 0.0 - 0.2 X10*3/uL [facility] NRBC Abs Auto 0.020(H) 0.0 - 0.012 X10*3/uL [facility] 04/15/2025 4:06 PM EDT 04/15/2025 4:10 PM EDT us Generic External Data Provider LAB BLOOD ORDERAB LES Final Result Performing Organization Address [facility] de Phone Number [facility] [address] [place] [phone] * (ABNORMAL) Magnesium (04/15/2025 4:06 PM EDT) Magnesium 1.4(LL) 1.6 - 2.6 mg/dL [facility] Comment:Critical value for t est(s):MAGS Results called to and readback by:DR BLACK Person calling:MAGGIE Date:[id number] 04/15/2025 4:06 PM EDT 04/15/2025 4:10 PM EDT us Generic External Data Provider LAB BLOOD ORDERAB LES Final Result [facility] [address] [place] [phone] * (ABNORMAL) Comprehensive Metabolic Panel (04/15/2025 4:06 PM EDT) Sodium 140 135 - 145 mmol/L [facility] Potassium 3.4 3.3 - 5.1 mmol/L [facility] Chloride 98 96 - 108 mmol/L [facility] Carbon Dioxide 33(H) 22 - 29 mmol/L [facility] Anion Gap 12 12 - 20 [facility] Urea Nitrogen (BUN) 11 9 - 16 mg/dL [facility] Creatinine, Serum 1.16 0.5 - 1.4 mg/dL [facility] Creatinine Clr Calc Pharmacy 49.6 [facility] Comment:eGFR (calculated fro m the MDRD study equation) and eCrCl(calculated from the Cockcroft-Gault equation) are based ondifferent parameters and may not yield comparable results.If eCrCl result is absurd, please check patient'sheight/weight. Estimated Glomerular Filt Rate >60 [facility] Comment:Chronic Kidney Disea se: Estimated GFR < 60 mL/min/1.23v7Cuqcre Kidney Disease: Estimated GFR < 15 mL/min/1.73m2 Glucose 119(H) 60 - 115 mg/dL [facility] Calcium 8.5 8.4 - 10.2 mg/dL [facility] Bilirubin, Total 1.5(H) 0.0 - 1.0 mg/dL [facility] Aspartate Amino Transferase 60(H) 5 - 37 U/L [facility] Alanine Aminotransferase 71(H) 0 - 40 U/L [facility] [facility] Total Protein 5.6(L) 6.5 - 8.0 g/dL [facility] Albumin Level 3.6 3.5 - 5.0 g/dL [facility] Alkaline Phosphatase 89 39 - 117 U/L [facility] 04/15/2025 4:06 PM EDT 04/15/2025 4:10 PM EDT us Generic External Data Provider LAB BLOOD ORDERAB LES Final Result Performing Organization Address [facility]/ZIP Co de Phone Number [facility] [address] [place] [phone] * ECG 12 lead (04/15/2025 2:50 PM EDT) Narrative Amy Fry MD - 04/15/2025 2:50 PM EDT A fib with RVR HR 128 us Amy Estrada MD ECG ORDERABLES Final Result * Hepatitis C Antibody with Reflex to HCV, RNA, Quantitative, Real-Time PCR (03/31/2025 11:41 AM EDT) Pathologist [facility] Hepatitis C Antibody Nonreactive Nonreactive [facility] Comment:Antibodies to HCV no t detected; does not exclude early acuteHCV infection. Blood Venous blood specimen / Unknown 03/31/2025 11:41 AM EDT 03/31/2025 11:41 AM EDT us Kristi Warren ANP LAB BLOOD ORDERABLES Final Resul t Performing Organization Address [facility] Co de Phone Number [facility] [address] [place] [phone] * Lipid Panel, Standard (03/31/2025 11:41 AM EDT) Triglycerides 64 <150 mg/dL [facility] Comment:Desirable Triglyceri de: less than 150 mg/dLBorderline High Triglyceride 150-199 mg/dLHigh Triglyceride: 200-499 mg/dLVery High Triglyceride: greater than or equal to 5OO mg/dL Cholesterol 86 <200 mg/dL [facility] Comment:Desirable Cholestero l: less than 200 mg/dLBorderline High Cholesterol: 200-239 mg/dLHigh Cholesterol: greater than 239 mg/dL LDL Cholesterol Calculated 30 <100 mg/dL [facility] Comment:Desirable LDL: less than 100 mg/dLNear Optimal/Above Optimal LDL: 110- 129 mg/dLBorderline High LDL: 130-159 mg/dLHigh LDL: 160-189 mg/dLVery High LDL: greater than or equal to 190 mg/dL HDL Cholesterol 44 >40 mg/dL [facility] Comment:Desirable HDL: great er than 40 mg/dL Note: This HDL assay may give artificially low results in patients with liver disease. Blood Venous blood specimen / Unknown 03/31/2025 11:41 AM EDT 03/31/2025 11:41 AM EDT Kristi Warren ANP LAB BLOOD ORDERABLES Final Resul t [facility] [address] [place] [phone] * (ABNORMAL) POCT HGB A1C (03/13/2025 3:05 PM EDT) Hemoglobin A1C 6.5(A) 4.0 - 6.0 % QC Media Lot # [id number] Lot# Expiration Date ,435 Blood 03/13/2025 3:05 PM EDT Kristi Warren ANP POINT OF CARE TEST ENTER/EDIT OR DERABLES Final Result * Colonoscopy (07/26/2010) Colonoscopy Normal Normal Historical Provider HEALTH MAINTENANCE Final Result from Last 3 Months or Most Recently Relevant to Health Maintenance Insurance [address] [place] [id number] [facility] OPTIONS (O D-SNP) Advance Directives Documents on File Type Date Recorded Patient Financial Services Education Consultant Expl anation Advance Directives and Living Will 12/27/2024 Health Care Proxy 12/26/24 Care Teams Steep Tender Relationship Specialty Start Date End Date Kristi Warren ANP [address] [place] [phone] PCP - General Family Medicine 03/24/20 [facility] Care 12/09/24
--- OUTSIDE RECORDS SUMMARY | 2025-07-14 16:21 | XMS_ITS | Encounter Summary ---
Author Organization [facility], Address [address] [place] [address] Phone Care Team Providers Care Fountain Dispenser Name Role Phone Unavailable Primary Care Provider Unavailabl e Encounter Details Date Type Department Care Team (Late st Contact Info) Description 07/30/2024 Documentation Only [facility], - Angel Caicedo [address] [place] [phone] Iona Salas [address] [place] [address] Social History Tobacco Use Types [...]
--- OUTSIDE RECORDS SUMMARY | 2025-07-14 16:22 | XMS_ITS | Encounter Summary ---
Author Organization [facility], Address [address] [place] [address] Phone Care Team Providers Care Crime Scene Analyst Name Role Phone Unavailable Primary Care Provider Unavailabl e Encounter Details Date Type Department Care Team (Late st Contact Info) Description 01/21/2022 Documentation Only [facility], [address] [place] [address] Jt Ochoa PA [address] [place] [address] Social History Tobacco Use Types [...]
--- OUTSIDE RECORDS SUMMARY | 2025-07-14 16:22 | XMS_ITS | Encounter Summary ---
Author Organization [facility], Address [address] [place] [address] Phone Care Team Providers Care Brake Rider Name Role Phone Unavailable Primary Care Provider Unavailabl e Encounter Details Date Type Department Care Team (Late st Contact Info) Description 01/27/2023 Orders Only [facility], [address] [place] [address] Jt Ochoa PA [address] [place] [address] Stage 3a chronic kidney disease [...]
--- OUTSIDE RECORDS SUMMARY | 2025-07-14 16:22 | XMS_ITS | Encounter Summary ---
Author Organization [facility], Address [address] [place] [address] Phone Care Team Providers Care Squilgeer Name Role Phone Unavailable Primary Care Provider Unavailabl e Encounter Details Date Type Department Care Team (Late st Contact Info) Description 10/07/2022 Orders Only [facility], [address] [place] [address] Jt Ochoa PA [address] [place] [address] Stage 3a chronic kidney disease [...] 1:48 PM EST) Iron 70 (45-160) MCG/DL [facility] UIBC 153 (110-370) MCG/DL [facility] TIBC 223 (155-530) MCG/DL [facility] Iron Saturation (TSat) 31 (20-55) % [facility] Comment: Testing performed or reported by [facility], a Service of [facility], [address] [place] [address] Elvira Lopez MD, Pedigree Tracer [facility]# [id number] Blood specimen (specimen) Venous blood / Unknown 10/25/2022 1:48 PM EST 10/25/2022 1:54 PM EST Jt GALINDO LAB BLOOD ORDERABLES Final Re sult [facility] * (ABNORMAL) Hemoglobin A1c (10/25/2022 1:48 PM EST) Hemoglobin A1C 6.0(H) (4.0-5.6) % [facility] Comment: MONITORING: In known diabetic patients, hemoglobin A1c targets should be discussed with health care provider. DIAGNOSTIC USE: The [place] Diabetes Association (ADA) and the World Health [...] Supplement 1 Testing performed or reported by [facility], a Service of [facility], [address] [place] [address] Elvira Lopez MD, Pedigree Tracer CLIA# [id number] Blood specimen (specimen) Venous blood / Unknown 10/25/2022 1:48 PM EST 10/25/2022 1:54 PM EST Jt GALINDO LAB BLOOD ORDERABLES Final Re sult Performing Organization Address [facility] de Phone Number [facility] * (ABNORMAL) PTH, intact (10/25/2022 1:48 PM EST) PTH, Intact 105(H) (15-65) PG/ML [facility] Comment: Testing performed or reported by [facility], a Service of [facility], [address] [place] [address] Elvira Lopez MD, Pedigree Tracer CLIA# [id number] Blood specimen (specimen) Venous blood / Unknown 10/25/2022 1:48 PM EST 10/25/2022 1:54 PM EST Jt GALINDO LAB BLOOD ORDERABLES Final Re sult Performing Organization Address [facility] Co de Phone Number [facility] * Urine Protein / creatinine ratio (10/25/2022 1:48 PM EST) [facility] Protein/Creatin e Ratio 0.14 (0-0.2) [facility] Protein, Urine 13 MG/DL [facility] Creatinine, Urine 96.2 MG/DL [facility] Comment: Testing performed or reported by [facility], a Service of [facility], [address] [place] [address] Evlira Lopez MD, Pedigree Tracer [facility]# [id number] Urine specimen (specimen) Urine specimen obtained by clean catch procedure / Unknown 10/25/2022 1:48 PM EST 10/25/2022 1:54 PM EST Jt GALINDO LAB URINE ORDERABLES Final Re sult [facility] * (ABNORMAL) Urinalysis, Complete w/reflex to Culture (10/25/2022 1:48 PM EST) [facility] Appearance LIGHT YELLOW [facility] Comment:CLEAR Specific [place] 1.014 (1.002-1. 030) [facility] pH Urine 6.0 (5.0-8.0) [facility] Albumin, Urine TRACE(A) (NEG) [facility] Glucose, Ur NEGATIVE (NEG) [facility] Ketones, Urine NEGATIVE (NEG) [facility] Bilirubin Urine NEGATIVE (NEG) [facility] Hemoglobin Presence in Urine NEGATIVE (NEG) [facility] Nitrite, Urine NEGATIVE (NEG) [facility] Leukocyte Esterase Urine NEGATIVE (NEG) [facility] Urobilinogen Urine NORMAL (NORM) MG/DL [facility] WBC, Urine 1 (0-5) /HPF [facility] RBC, Urine 1 (0-3) /HPF [facility] Mucus, Urine SLIGHT /LPF [facility] Hyaline Casts, Urine 4(H) (0-2) LPF [facility] Clarity CLEAR (CLEAR) [facility] CULTURE INDICATED CULTURE NOT INDICATED [facility] Comment: Testing performed or reported by [facility], a Service of [facility], [address] [place] [address] Elvira Lopez MD, Pedigree Tracer [facility]# [id number] Urine specimen (specimen) Urine specimen obtained by clean catch procedure / Unknown 10/25/2022 1:48 PM EST 10/25/2022 1:54 PM EST us Jt GALINDO LAB URINE ORDERABLES Final Re sult [facility] * (ABNORMAL) CBC and differential (10/25/2022 1:48 PM EST) White Blood Cells 10.3 (4.0-11.0 ) K/MM3 [facility] RBC 4.06(L) (4.70-6.1 0) M/MM3 [facility] Hgb 13.7 (13.7-17. 1) GM/DL [facility] Hematocrit 42.3 (40.5-50. 0) % [facility] MCV 104.2(H) (80.0-94. 0) FL [facility] MCH 33.7 (27.0-34. 0) PG [facility] MCHC 32.4(L) (33.0-37. 0) g/dL [facility] Platelets 232 (150-460) K/MM3 [facility] RDW-SD 50.7(H) (<47.0) FL [facility] MPV 9.8 (9.4-12.4 ) [place] [facility] nRBC Count 0.0 #/100 WBC'S [facility] NRBC Absolute 0.0 K/MM3 [facility] Neutrophils Abs Auto 6.6 (1.3-7.0) K/MM3 [facility] Lymphocytes Relative 2.6 (0.8-3.1) K/MM3 [facility] Monocytes 0.7 (0.4-1.3) K/MM3 [facility] Eosinophils Relative 0.2 (0.0-0.4) K/MM3 [facility] Basophil ABS 0.1 (0.0-0.1) K/MM3 [facility] Granulocytes Absolute 0.1 K/MM3 [facility] Neutrophils % Auto 64.3 (44-76) % [facility] Lymphs 25.4 (15-43) % [facility] Monocytes Absolute 7.0 (4.5-10.5 ) % [facility] Eosinophils 2.3 (0-6) % [facility] Basophils Relative 0.5 (0-2) % [facility] Immature Granulocytes 0.5 % [facility] Comment: Testing performed or reported by [facility], a Service of [address] [address] Elvira Lopez MD, Pedigree Tracer CLIA# [id number] Blood specimen (specimen) Venous blood / Unknown 10/25/2022 1:48 PM EST 10/25/2022 1:54 PM EST Jt GALINDO LAB BLOOD ORDERABLES Final Re sult Performing Organization Address City/[facility] Co de Phone Number [facility] * (ABNORMAL) Renal function panel (10/25/2022 1:48 PM EST) Pathologist [facility] Glucose 116(H) (70-99) MG/DL [facility] BUN 25(H) (8-23) MG/DL [facility] Creatinine 1.7(H) (0.7-1.2) MG/DL [facility] Sodium 139 (133-145) MMOL/L [facility] Potassium 4.5 (3.6-5.2) MMOL/L [facility] Chloride 100 (98-107) MMOL/L [facility] Bicarbonate (CO2) 33(H) (22-29) MMOL/L [facility] Anion Gap 6 (4-17) [facility] Albumin 4.2 (3.4-4.8) GM/DL [facility] Calcium 9.5 (8.6-10.5) MG/DL [facility] Phosphorus, Serum 3.8 (2.5-4.5) MG/DL [facility] Est GFR Non 44 ML/MIN/1.7 3 M2 [facility] Comment: Creatinine based estimated glomerular filtration (eGFR) in adults is calculated using the National Kidney Foundation recommended 2020 CKD-EPI equation. Estimates GFR from serum creatinine, age and sex. Testing performed or reported by [facility], a Service of [address] [address] Elvira Lopez MD, Pedigree Tracer CLIA# [id number] Blood specimen (specimen) Venous blood / Unknown 10/25/2022 1:48 PM EST 10/25/2022 1:54 PM EST Jt GALINDO LAB BLOOD ORDERABLES Final Re sult Performing Organization Address [facility] Co de Phone Number [facility] documented in this encounter Visit Diagnoses Diagnosis Stage 3a chronic kidney disease (HCC) documented in this encounter
--- OUTSIDE RECORDS SUMMARY | 2025-07-14 16:22 | XMS_ITS | Encounter Summary ---
Author Organization [facility], Address [address] [place] [address] Phone Care Team Providers Care Machinist Bench Name Role Phone Unavailable Primary Care Provider Unavailabl e Encounter Details Date Type Department Care Team (Late st Contact Info) Description 10/19/2022 Documentation Only [facility], [address] [place] [address] Jt Ochoa PA [address] [place] [address] Social History Tobacco Use Types [...]
--- OUTSIDE RECORDS SUMMARY | 2025-07-14 16:22 | XMS_ITS | Encounter Summary ---
Author Organization [employer] Address [address] [facility] [address] [place] [address] Care Team Providers Care Bellhop Name Role Phone Kristi Warren Primary Care Provider [phone] Reason for Visit * Reason Onset Date Comments Durable Medical Equipment 07/27/2023 Encounter Details Date Type Department Care Team (Late st Contact Info) Description 07/27/2023 Telephone [facility] [address] [place] [address] Kristi Warren ANP [address] [place] [address] Durable Medical Equipment Social History Tobacco Use [...] PM EDT Tc from [facility] requesting DME for pt on glucometer kit. Any question contact [facility] documented in this encounter Plan of Treatment Upcoming Encounters Date Type Department Care Team (Late st Contact Info) Description 08/21/2025 9:00 AM EST Office Visit [facility] [address] [place] [address] Kristi Warren ANP [address] [place] [address] documented as of this encounter Visit Diagnoses Not on filedocumented in this encounter Care Teams Bellhop Relationship Specialty Start Date End Date Kristi Warren ANP [address] [place] [phone] PCP - General Family Medicine 03/24/20 [facility] 08/09/24 12/19/24 [facility] Care 12/09/24 documented as of this encounter
--- OUTSIDE RECORDS SUMMARY | 2025-07-14 16:22 | XMS_ITS | Encounter Summary ---
Author Organization [facility], Address [address] [place] [address] Phone Care Team Providers Care Oil Field Technician Name Role Phone Unavailable Primary Care Provider Unavailabl e Encounter Details Date Type Department Care Team (Late st Contact Info) Description 01/10/2024 Documentation Only [facility], [address] [place] [address] Iona Salas [address] [place] [address] Social History Tobacco Use Types [...]
== END 2025-07-14 15:42 | disposition home or self-care (01) ==
LOC: HO.HNS 13:54
PROVIDERS: PCP Nurse Practitioner Primary Care; Referring Provider Anesthesiology; Visit Provider Physician Assistant
DX: M48.02 Spinal stenosis, cervical region (principal)
CPT/HCPCS: 99205

== ENCOUNTER 2025-07-14 13:54 | Outpatient (REF) | payer OTHER, SELFPAY | END 2025-07-14 13:55 | disposition home or self-care (01) | LOC: HO.HOSX 13:54 | PROVIDERS: PCP Nurse Practitioner Primary Care; Referring Provider Anesthesiology; Visit Provider Physician Assistant | DX: M48.02 Spinal stenosis, cervical region (principal) | CPT/HCPCS: 99202 ==

== ENCOUNTER 2025-07-17 14:54 | Outpatient (AMB) | payer OTHER, SELFPAY ==
--- OUTSIDE RECORDS SUMMARY | 2025-07-17 14:57 | XMS_ITS | Encounter Summary ---
Author Organization [facility], Address [address] [place] [address] Phone Care Team Providers Care Auto Brake Mechanic Name Role Phone Unavailable Primary Care Provider Unavailabl e Encounter Details Date Type Department Care Team (Late st Contact Info) Description 07/30/2024 Documentation Only [facility], - Angel Caicedo [address] [place] [phone] Iona Salas [address] [place] [address] Social History Tobacco Use Types [...]
--- OUTSIDE RECORDS SUMMARY | 2025-07-17 14:57 | XMS_ITS | Clinical Summary ---
Author Organization [employer] Address [address] [place] [address] Care Team Providers Care Shoe Stitcher Odd Name Role Phone Kristi Warren Primary Care Provider [phone] Allergies No known active allergies Medications * [...] tablet 3 08/07/20 24 Active Continuous Glucose Water Taxi Ferry Operator (FreeStyle Sherley 2 [place]) deviceIndication s:Type 2 diabetes mellitus with stage 3 chronic kidney disease, with long-term current use of insulin, unspecified whether stage 3a or 3b CKD (HCC) USE DIRECTED SCAN EVERY 8 HOURS 1 each 08/07/20 24 Active Blood Glucose Monitoring Suppl (FreeStyle [place] Lite) w/Device kit USE DIRECTED TO TEST BLOOD SUGAR THREE TIMES DAILY 1 kit 08/07/20 24 Active naloxone (Narcan) 4 mg/0.1 mL nasal sprayIndications :Misuse of medication,FPC (current) use of opiate analgesic Administer 1 [...] unspecified whether stage 3a or 3b CKD ([facility]) USE DIRECTED TO TEST BLOOD SUGAR CHANGE EVERY 14 DAYS 2 each 11/20/19 Active FREESTYLE LITE test stripIndications :Type 2 diabetes mellitus with unspecified complications ([facility]) test blood sugars twice a day 100 [...] nephropathy associated with type 2 diabetes mellitus ([facility]) 1 each every 15 days. Change sensor [...] , Patient to reach out to [facility] team as needed, Comply with medication , and Patient to engage in OP therapy Mild anxiety 08/22/2024 History of non-ST elevation myocardial infarctio n (NSTEMI) 08/06/2024 Overview (08/06/2024): (from coronary hypoperfusion during cardiac arrest after elective lumbar injection 09/28/18) Paroxysmal atrial fibrillation ([facility]) 024 Assessment & Plan (04/15/2025 2:49 PM EDT): I recommended for patient to go to the hospital with ambulance, he refused and signed AMA Assessment & Plan (08/06/2024 3:33 PM EDT): - patient has Holter monitor in June 2024 which was ordered by his race and sports book writer. Results did not show atrial fibrillation. - the patient was seen by a race and sports book writer while int hospital and telemetry tracing showed atrial fibrillation per race and sports book writer. - the patient was started on eliquis but it was not continued after he was discharged from the senior living for unclear reasons. - due to increase risk of fall, will consult with race and sports book writer. The patient is taking aspirin and cilostazol for PAD. Will consult with race and sports book writer. Metabolic encephalopathy 08/06/2024 Assessment & Plan (08/06/2024 [...] obstruction 07/04/2017 Edentulous 07/04/2017 Erectile dysfunction associa reignaldo with type 2 diabetes mellitus 07/04/2017 Failed [...] to low BP. - will consult with race and sports book writer for optimal BP management plan. Mood disorder 07/04/2017 Onychomycosis 07/04/2017 Osteoarthritis of right knee 07/04/2017 Tobacco dependence syndrome 07/04/2017 Stage 3 chronic kidney disease (CMS/HCC) 017 Overview (05/25/2023): Update for Diagnosis Load Retinopathy 05/29/2012 Encounters Date Type Department Care Team Description 07/01/2025 Orders Only GENERIC EXTERNAL DATA DEPARTMENT Provider, Generic External Data 06/23/2025 Refill [facility] [place] [address] Kristi Warren ANP Type 2 diabetes mellitus with stage 3 chronic kidney disease, with long-term current use of insulin, unspecified whether stage 3a or 3b CKD ([facility]); Insomnia, unspecified type 06/18/2025 Telephone [facility] [place] [address] Kristi Warren ANP Durable Medical Equipment 06/12/2025 1:00 PM EDT Office Visit [facility] [place] [address] Kristi Warren ANP Diabetic peripheral neuropathy ([facility]) (Primary Dx); Cervical stenosis of spine; Moderate protein-calorie malnutrition ([facility]); Frail elderly; Failed back surgical syndrome; Restless legs 06/12/2025 Travel 06/11/2025 Telephone [facility] [place] [address] Kristi Warren ANP Durable Medical Equipment 06/05/2025 Telephone [facility] Kathy [facility] [place] [address] Kristi Warren ANP Prior Authorization 06/02/2025 Refill [facility] [place] [address] Katiana Villarreal, RN Diabetic nephropathy associated with type 2 diabetes mellitus ([facility]) (Primary Dx) 05/27/2025 Orders Only GENERIC EXTERNAL DATA DEPARTMENT Provider, Generic External Data 05/26/2025 Telephone [facility] [place] [address] Kristi Warren ANP 05/23/2025 Orders Only [facility] [place] [address] Kristi Warren ANP 05/23/2025 Refill [facility] [place] [address] Beny Lentz MD Insomnia, unspecified type 05/20/2025 Orders Only [facility] [address] [place], [place] [address] [place] [address] Kristi Warren ANP Abnormal weight loss (Primary Dx) 05/20/2025 Telephone [facility] [place] [place] [address] ABD/PELVIS ORDER 05/19/2025 Refill [facility] a[facility] [place] [address] Kristi Warren ANP History of non-ST elevation myocardial infarction (NSTEMI) 05/12/2025 1:00 PM EDT Office Visit [facility] Kathy [facility] [place] [address] Kristi Warren ANP Neck pain (Primary Dx); Dry skin; Easy bruising; Fatigue, unspecified type; Anorexia; Moderate protein-calorie malnutrition (CMS/HCC) 05/12/2025 Travel 05/09/[address] [place] [address] Kristi Warren ANP chart prep 05/09/20[address] [place] [address] Kristi Warren ANP Nurse Triage 04/29/[address] [address] Kristi Warren ANP Durable Medical Equipment 04/25/2025 [address]ill [address] [place] [address] Kristi Warren ANP Insomnia, unspecified type 04/23/2025 Telephone [facility] [address] [place] [address] [address] ABD/PELVIS ORDER 04/22/[address] [address] Kristi Warren ANP ER Follow-up; fyi 04/19/2025 Travel 04/18/2025 [address] [place] [address] Norma Campos, Kathleen 04/18/[address] [address] Kristi Warren ANP Nurse Triage 04/16/[address] [place] [address] Norma Campos, PharmD from Last 3 Months Immunizations Immunization Administration [...] Description 08/21/2025 9:00 AM EST Office Visit [facility] [address] [place] [address] Kristi Warren ANP [address] [place] [address] Health Maintenance Due Date Last Done Comments [...] EDT CBC Routine 05/27/2025 9:04 AM EDT HEPATITIS C AB W/REFL TO HCV RNA, [...] EDT) Vitamin D, 25-OH, D2 25 ng/mL [facility] Comment:This test was develo ped and its analytical performancecharacteristics have been determined by [facility] [place], [place]. It hasnot been cleared or approved by the U.S. Food and DrugAdministration. This assay has been validated pursuantto the CLIA regulations and is used for clinicalpurposes.THIS TEST WAS PERFORMED AT:[employer] [id number] [place] [address]NPRZJUTDAVONTE MCCURDY MD,PHD Vitamin D, 25-OH, D3 24 ng/mL [facility] Comment:This test was develo ped and its analytical performancecharacteristics have been determined by [facility] [place], [place]. It hasnot been cleared or approved by the U.S. Food and DrugAdministration. This assay has been validated pursuantto the CLIA regulations and is used for clinicalpurposes. Vitamin D, 25-OH, Total 49 30 - 100 ng/mL [facility] Comment:Vitamin D, 25-Hydrox y reports concentrations [...] = 30 ng/mL.For additional information, please refer tohttp://education.RAREFORM/faq/TPJ086(This link is being provided for informational/educational purposes only.) 07/01/2025 1:19 PM EDT 07/01/2025 1:19 PM EDT us Generic External Data Provider LAB BLOOD ORDERAB LES Final Result Performing Organization Address [facility] Co de Phone Number [facility] [address] [place] [phone] * Vitamin B12 (Cobalamin) and Folate Panel, Serum (07/01/2025 1:19 PM EDT) Vitamin B12 271 200 - 900 pg/mL [facility] Comment:NORMAL 200-900 PG/ML INDETERMINATE 160-199 PG/ML DEFICIENT < 160 PG/ML Folate 6.2 > or = 4.0 ng/mL [facility] Comment:Reference Values:> o r = 4.0 ng/mL< 4.0 ng/mL suggests folate deficiency Methotrexate, aminopterin and folinic acid(leucovorin) are chemotherapeutic agents whose molecularstructures are similar to folate; therefore, the Architectfolate assay cannot be used for patients using these drugs. 07/01/2025 1:19 PM EDT 07/01/2025 1:19 PM EDT us Generic External Data Provider LAB BLOOD ORDERAB LES Final Result Performing Organization Address City/[facility]/ZIP Co de Phone Number [facility] [address] [place] [phone] * TSH with Reflex to Free T4 (07/01/2025 1:19 PM EDT) Pathologist [facility] TSH reflex Free T4 2.50 0.32 - 4.0 uIU/mL [facility] 07/01/2025 1:19 PM EDT 07/01/2025 1:19 PM EDT us Generic External Data Provider LAB BLOOD ORDERAB LES Final Result [facility] [address] [place] [phone] * (ABNORMAL) CBC (07/01/2025 1:19 PM EDT) Only the most recent of2 resultswithin the time period is included. Pathologist [facility] White Blood Count 6.8 4.8 - 10.8 X10*3/uL [facility] Red Blood Count 4.64 4.60 - 5.80 X10*6/uL [facility] Hemoglobin 16.0 14.0 - 18.0 g/dl [facility] Hematocrit 46.9 42.0 - 52.0 % [facility] Mean Corpuscular Volume 101.1(H) 80.0 - 98.0 fL [facility] Mean Corpuscular Hemoglobin 34.5(H) 27.0 - 33.0 pg [facility] Mean Corpuscular HGB Conc 34.1 31.0 - 36.0 g/dl [facility] Red Cell Distribution Width 14.0 11.0 - 16.0 % [facility] Platelet Count 202 160 - 400 X10*3/uL [facility] Mean Platelet Volume 10.0 9.4 - 12.4 fL [facility] NRBC Pct Auto 0.0 0.0 - 0.2 /100WBC [facility] NRBC Abs Auto 0.000 0.0 - 0.012 X10*3/uL [facility] 07/01/2025 1:19 PM EDT 07/01/2025 1:19 PM EDT us Generic External Data Provider LAB BLOOD ORDERAB LES Final Result Performing Organization Address City/[facility]/ZIP Co de Phone Number [facility] [address] [place] [phone] * Lipase (07/01/2025 1:19 PM EDT) Lipase 33 8 - 78 U/L [facility] 07/01/2025 1:19 PM EDT 07/01/2025 1:19 PM EDT Generic External Data Provider LAB BLOOD ORDERAB LES Final Result Performing Organization Address [facility] Co de Phone Number [facility] [address] [place] [phone] * Testosterone, Total, males (Adult), [place] (05/27/2025 9:04 AM EDT) Testosterone, Total 300 250 - 1100 ng/dL [facility] Comment:Men with clinically significant hypogonadalsymptoms and testosterone values repeatedly inthe range of the 200-300 ng/dL or less, maybenefit from testosterone treatment afteradequate risk and benefits counseling.For additional information, please refer tohttp://education.Livevol.Chekkt.com/faq/KlywvCgvubbpsjvwqTRSDGORDQ766(This link is being provided for informational/educational purposes only.)This test was developed and its analytical performancecharacteristics have been determined by [facility] [place], [place]. It hasnot been cleared or approved by the U.S. Food and DrugAdministration. This assay has been validated pursuantto the CLIA regulations and is used for clinicalpurposes.THIS TEST WAS PERFORMED AT:[employer]/[id number] [place] [address]IZPAWJDDAVONTE MCCURDY MD,PHD 05/27/2025 9:04 AM EDT 05/27/2025 9:04 AM EDT Generic External Data Provider LAB BLOOD ORDERAB LES Final Result Performing Organization Address [facility]/ZIP Co de Phone Number [facility] [address] [place] [phone] * PSA,Total (05/27/2025 9:04 AM EDT) Pathologist [facility] Prostate Specific Antigen 0.38 <0.05 - 4.0 ng/mL [facility] Comment:PSA methodology: Abb wendy Alinarcisa i ChemiluminescentMicroparticle Immunoassay (CMIA) 05/27/2025 9:04 AM EDT 05/27/2025 9:04 AM EDT [facility] External Data Provider LAB BLOOD ORDERAB LES Final Result Performing Organization Address [facility] Co de Phone Number [facility] [address] [place] [phone] * Hepatitis C Antibody with Reflex to HCV, RNA, Quantitative, Real-Time PCR (03/31/2025 11:41 AM EDT) Pathologist [facility] Hepatitis C Antibody Nonreactive Nonreactive [facility] Comment:Antibodies to HCV no t detected; does not exclude early acuteHCV infection. Blood Venous blood specimen / Unknown 03/31/2025 11:41 AM EDT 03/31/2025 11:41 AM EDT [facility] LAB BLOOD ORDERABLES Final Resul t Performing Organization Address [facility] Co de Phone Number [facility] [address] [place] [phone] * Lipid Panel, Standard (03/31/2025 11:41 AM EDT) Pathologist [facility] Triglycerides 64 <150 mg/dL [facility] Comment:Desirable Triglyceri de: less than 150 mg/dLBorderline High Triglyceride 150-199 mg/dLHigh Triglyceride: 200-499 mg/dLVery High Triglyceride: greater than or equal to 5OO mg/dL Cholesterol 86 <200 mg/dL [facility] Comment:Desirable Cholestero l: less than 200 mg/dLBorderline High Cholesterol: 200-239 mg/dLHigh Cholesterol: greater than 239 mg/dL LDL Cholesterol Calculated 30 <100 mg/dL [facility] Comment:Desirable LDL: less than 100 mg/dLNear Optimal/Above Optimal LDL: 110- 129 mg/dLBorderline High LDL: 130-159 mg/dLHigh LDL: 160-189 mg/dLVery High LDL: greater than or equal to 190 mg/dL HDL Cholesterol 44 >40 mg/dL [facility] Comment:Desirable HDL: great er than 40 mg/dL Note: This HDL assay may give artificially low results in patients with liver disease. Blood Venous blood specimen / Unknown 03/31/2025 11:41 AM EDT 03/31/2025 11:41 AM EDT us Kristi Warren ANP LAB BLOOD ORDERABLES Final Resul t [facility] [address] [place] [phone] * (ABNORMAL) POCT HGB A1C (03/13/2025 3:05 PM EDT) Hemoglobin A1C 6.5(A) 4.0 - 6.0 % QC Media Lot # [id number] Lot# Expiration Date ,921 Blood 03/13/2025 3:05 PM EDT us Kristi Warren ANP POINT OF CARE TEST ENTER/EDIT OR DERABLES Final Result * Colonoscopy (07/26/2010) Colonoscopy Normal Normal Historical Provider MD HEALTH MAINTENANCE Final Result from Last 3 Months or Most Recently Relevant to Health Maintenance Insurance [facility] [employer] OPTIONS (HMO D-SNP) [place]IE [place] [id number] Advance Directives Documents on File Type Date 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
--- OUTSIDE RECORDS SUMMARY | 2025-07-17 14:57 | XMS_ITS | Encounter Summary ---
Author Organization [facility], Address [address] [place] [address] Phone Care Team Providers Care Hired Hand Name Role Phone Unavailable Primary Care Provider Unavailabl e Reason for Visit * Reason Comments Med Refill Encounter Details Date Type Department Care Team (Late st Contact Info) Description 10/15/2024 Refill [facility], [address] [place] [address] Jt Ochoa PA [address] [place] [address] Social History Tobacco Use Types [...]
--- OUTSIDE RECORDS SUMMARY | 2025-07-17 14:57 | XMS_ITS | Encounter Summary ---
Author Organization [facility], Address [address] [place] [address] Phone Care Team Providers Care Assistant Facility Manager Name Role Phone Unavailable Primary Care Provider Unavailabl e Encounter Details Date Type Department Care Team (Late st Contact Info) Description 07/30/2024 Documentation Only [facility], - Angel Caicedo [address] [place] [phone] Iona Salas [address] [place] [address] Social History Tobacco Use Types [...]
--- OUTSIDE RECORDS SUMMARY | 2025-07-17 14:57 | XMS_ITS | Encounter Summary ---
Author Organization [facility], Address [address] [place] [address] Phone Care Team Providers Care Ct Tech Name Role Phone Unavailable Primary Care Provider Unavailabl e Reason for Visit * Reason Comments Med Refill Encounter Details Date Type Department Care Team (Late st Contact Info) Description 10/20/2024 Refill [facility], [address] [place] [address] Jt Ochoa PA [address] [place] [address] Social History Tobacco Use Types [...]
--- OUTSIDE RECORDS SUMMARY | 2025-07-17 14:57 | XMS_ITS | Encounter Summary ---
Author Organization [employer] Address [address] [place] [address] Care Team Providers Care Civil Division Deputy Sheriff Name Role Phone Kristi Warren Primary Care Provider [phone] Encounter Details Date Type Department Care Team (Late st Contact Info) Description 08/12/2024 Telephone [facility] [address] [place], [place] [phone] Kristi Warren ANP [address] [place] [address] Social History Tobacco Use Types Packs/Day Years [...] Description 08/21/2025 9:00 AM EST Office Visit [facility] [address] [place] [address] Kristi Warren ANP [address] [place] [address] documented as of this encounter Goals Goal [...] documented as of this encounter Care Teams Civil Division Deputy Sheriff Relationship Specialty Start Date End Date Kristi Warren ANP [address] [place] [address] PCP - General Family Medicine 03/24/20 [facility] 08/09/24 12/19/24 [facility] 12/09/24 documented as of this encounter
--- OUTSIDE RECORDS SUMMARY | 2025-07-17 14:57 | XMS_ITS | Encounter Summary ---
Author Organization [employer] [facility] Address [address] [facility] 7t [place] [address] Care Team Providers Care Casing Man Name Role Phone Kristi Warren Primary Care Provider [phone] Encounter Details Date Type Department Care Team (Late Contact Info) Description 10/19/2022 Orders Only [facility] [address] [place] [address] Mona Porras LPN Social History Tobacco Use [...] Description 08/21/2025 9:00 AM EST Office Visit [facility] [address] [place] [phone] Kristi Warren ANP [address] [place], [place] [phone] documented as of this encounter Procedures Procedure Name Priority Date/Time Associated Diagnosis Comments XR FOOT 1-2 VIEWS RIGHT Routine 11/07/2022 11:42 AM EST documented in this encounter Results * XR Foot 1-2 Views Right (11/07/2022 11:42 AM EST) Anatomical Region Laterality Modality Lower Extremities, Foot Right [facility] 11/07/2022 11:4 2 AM EST Narrative 11/09/2022 8:38 PM EST [address] [address] XRay Report Signed Patient: Albert Baeza MR#: [id number] : 1950 Acct:[id number] Age/Sex: 72 / M ADM Date: 11/07/22 Loc: HO.XRAY Attending Dr: Ophelia Hubbard NP Ordering Physician: OPHELIA HUBBARD NP Date of Service: 11/07/22 Procedure(s): XR foot RT 2V Accession Number(s): [id number] cc: OPHELIA HUBBARD NP EXAMINATION: XR FOOT, [...] MD in OV> 11/09/222034 DD/ 1142 TD/TT: [employer] Senior Officer: ALBERT Procedure Note Donotuseinterpreter, Image - 11/09/[address] [address] XRay Report Signed Patient: Albert BaezaMR#: [id number] : 1950Acct:[id number] Age/Sex: 72 / MADM Date: 11/07/22 Loc: HO.TYRONE Attending Dr: Ophelia Hubbard NP Ordering Physician: OPHELIA HUBBARD NP Date of Service: 11/07/22 Procedure(s): XR foot RT 2V Accession Number(s): [id number] cc: OPHELIA HUBBARD NP EXAMINATION: XR FOOT, [...] MD in OV> 11/09/222034 DD/ 1142 TD/TT: [employer] Senior Officer: ALBERT Authorkamille Provider Result Type Result Stat [facility] External Provider IMG XR PROCEDURES Edited Result - Final documented in this encounter Visit Diagnoses Not on filedocumented in this encounter Care Teams Casing Man Relationship Specialty Start Date End Date Kristi Warren ANP [address] [place] [phone] PCP - General Family Medicine 03/24/20 [facility] 08/09/24 12/19/24 [facility] 12/09/24 documented as of this encounter
--- OUTSIDE RECORDS SUMMARY | 2025-07-17 14:57 | XMS_ITS | Encounter Summary ---
Author Organization [facility], Address [address] [place] [address] Phone Care Team Providers Care Manager Transplant Name Role Phone Unavailable Primary Care Provider Unavailabl e Encounter Details Date Type Department Care Team (Late st Contact Info) Description 07/30/2024 Documentation Only [facility], - Angel Caicedo [address] [place] [phone] Iona Salas [address] [place] [address] Social History Tobacco Use [...]
--- OUTSIDE RECORDS SUMMARY | 2025-07-17 14:57 | XMS_ITS | Encounter Summary ---
Author Organization [employer] Address [address] [facility] 7t [place] [address] Care Team Providers Care High School French Teacher Name Role Phone Kristi Warren Primary Care Provider [phone] Reason for Visit * Reason Comments Med Refill Encounter Details Date Type Department Care Team (Late Contact Info) Description 11/18/2022 Refill [facility] [address] [place], [place] [phone] Kristi Warren ANP [address] [place], [place] [phone] Type 2 diabetes mellitus with diabetic nephropathy, with long-term current use of insulin ([facility]) (Primary Dx) Social History Tobacco Use [...] AM EST Office Visit [facility] [address] [place] [phone] Kristi Warren ANP [address] [place] [address] documented as of this encounter Visit Diagnoses Diagnosis Type 2 diabetes mellitus with diabetic nephropathy, with long-term current use of insulin (HCC)- Primary documented in this encounter Care Teams High [employer] French Teacher Relationship Specialty Start Date End Date Kristi Warren ANP [address] [place] [address] PCP - General Family Medicine 03/24/20 [facility] 08/09/24 12/19/24 [facility] 12/09/24 documented as of this encounter
--- OUTSIDE RECORDS SUMMARY | 2025-07-17 14:57 | XMS_ITS | Encounter Summary ---
Author Organization [facility] Address [address] [facility] 7t [place] [address] Care Team Providers Care Immersion Metalcleaner Name Role Phone Kristi Warren Primary Care Provider [phone] Reason for Visit * Reason Onset Date Comments Referral 11/17/2022 Encounter Details Date Type Department Care Team ([facility] st Contact Info) Description 11/17/2022 Telephone [facility] MEDICINE [address] [place] [address] Kristi Warren ANP [address] [place] [address] Referral Social History Tobacco Use Types Packs/Day [...] from pt requesting a referral for a vice president of customer service to have toe nails cut Please contact pt at [phone] documented in this encounter Plan of Treatment Upcoming Encounters Date Type Department Care Team (Late st Contact Info) Description 08/21/2025 9:00 AM EST Office Visit [facility] MED[facility]INE [address] [place] [address] Kristi Warren ANP [address] [place] [address] documented as of this encounter Visit Diagnoses Not on filedocumented in this encounter Care Teams Immersion Metalcleaner Relationship Specialty Start Date End Date Kristi Warren ANP [address] [place] [address] PCP - General Family Medicine 03/24/20 [facility] 08/09/24 12/19/24 [facility] 12/09/24 documented as of this encounter
--- OUTSIDE RECORDS SUMMARY | 2025-07-17 14:57 | XMS_ITS | Encounter Summary ---
Author Organization [employer] Address [address] [facility] 7t [place] [address] Care Team Providers Care Hand Plate Stacker Name Role Phone Kristi Warren Primary Care Provider [phone] Encounter Details Date Type Department Care Team ([facility] Contact Info) Description 11/24/2022 Orders Only [facility] [address] [place], [place] [phone] Amalia Pierre LPN Social History Tobacco Use [...] Description 08/21/2025 9:00 AM EST Office Visit [facility] MED[facility] [address] [place] [address] Kristi Warren ANP [address] [place] [address] documented as of this encounter Visit Diagnoses Not on filedocumented in this encounter Care Teams Hand Plate Stacker Relationship Specialty Start Date End Date Kristi Warren ANP [address] [place] [address] PCP - General Family Medicine 03/24/20 [facility] 08/09/24 12/19/24 [facility] 12/09/24 documented as of this encounter
--- OUTSIDE RECORDS SUMMARY | 2025-07-17 14:57 | XMS_ITS | Encounter Summary ---
Author Organization [employer] Address [address] [facility] 7t [place] [address] Care Team Providers Care Roto Mixer Operator Name Role Phone Kristi Warren Primary Care Provider [phone] Encounter Details Date Type Department Care Team (Late st Contact Info) Description 08/15/2024 Telephone [facility] MEDICINE [address] [place], [place] [phone] Kristi Warren ANP [address] [place] [address] Social History Tobacco Use Types Packs/Day Years [...] 11:11 AM EST TC from Viktoria William PUBLICATION DIRECTOR of pt stated that pt doesn't have no more meds due to pt is taking doseof trazodone of 7 days in 1 night also taking a lot of gabapentin in a Day and regular medication pt is crushing them and put in on sink is no taking none of his medication. Pt used [facility] and he is not due until August 30. [facility] requesting a call from PCP to discuss pt medication. PCP DR. Warren documented in this encounter Plan of Treatment Upcoming Encounters Date Type Department Care Team (Late st Contact Info) Description 08/21/2025 9:00 AM EST Office Visit [facility] MEDICINE [address] [place], [place] [phone] Kristi Warren ANP [address] [place] [address] documented as of this encounter Goals Goal [...] documented as of this encounter Care Teams Roto Mixer Operator Relationship Specialty Start Date End Date Kristi Warren ANP [address] [place] [address] PCP - General Family Medicine 03/24/20 [facility] 08/09/24 12/19/24 [facility] 12/09/24 documented as of this encounter
--- OUTSIDE RECORDS SUMMARY | 2025-07-17 14:57 | XMS_ITS | Encounter Summary ---
Author Organization [employer] Address [address] [facility] [address] [facility] [address] 7t [place] [address] Care Team Providers Care Seed Production Field Supervisor Name Role Phone Kristi Warren Primary Care Provider [phone] Encounter Details Date Type Department Care Team (Late st Contact Info) Description 05/23/2025 Orders Only [facility] MEDICINE [address] [place], [place] [phone] Kristi Warren ANP [address] [place] [address] Social History Tobacco Use Types Packs/Day Years [...] Description 08/21/2025 9:00 AM EST Office Visit [facility] MED[facility] [address] [place] [address] Kristi Warren ANP [address] [place] [address] documented as of this encounter Goals Goal [...] documented as of this encounter Care Teams Seed Production Field Supervisor Relationship Specialty Start Date End Date Kristi Warren ANP [address] [place] [address] PCP - General Family Medicine 03/24/20 [facility] 12/09/24 documented as of this encounter
--- OUTSIDE RECORDS SUMMARY | 2025-07-17 14:57 | XMS_ITS | Encounter Summary ---
Author Organization [employer] Address [address] [facility] 7t [place] [address] Care Team Providers Care Head Boys Golf Coach Name Role Phone Kristi Warren Primary Care Provider [phone] Reason for Visit * Reason Onset Date Comments Medication Question 07/15/2024 Encounter Details Date Type Department Care Team ([facility] st Contact Info) Description 07/15/2024 Telephone [facility] MEDICINE [address] [place] [address] Kristi Warren ANP [address] [place] [address] Medication Question Social History Tobacco Use Types [...] medications. The pt was recently discharged from [facility] after being in the hospital for a pneumothorax. Viktoria is concerned with the medications that the pt was discharged with and is apprehensive in regards to giving them to the pt. RN spoke with OMERO Song, who is in agreement that the pt can be scheduled for a [facility] appt. This will be forwarded to [facility] for scheduling. * Telephone Encounter - Trace Castaneda - 07/15/2024 8:46 AM EDT Tc from Viktoria from [facility] requesting a call back to compare medications and to see if the provider would like the patient to continue the medication documented in this encounter Plan of Treatment Upcoming Encounters Date Type Department Care Team (Late st Contact Info) Description 08/21/2025 9:00 AM EST Office Visit [facility] MEDICINE [address] [place] [address] Kristi Warren ANP [address] [place] [address] documented as of this encounter Goals Goal [...] documented as of this encounter Care Teams Head Boys Golf Coach Relationship Specialty Start Date End Date Kristi Warren ANP [address] [place] [address] PCP - General Family Medicine 03/24/20 [facility] 08/09/24 12/19/24 [facility] 12/09/24 documented as of this encounter
--- OUTSIDE RECORDS SUMMARY | 2025-07-17 14:58 | XMS_ITS | Clinical Summary ---
Author Organization [facility], Address [address] [place] [address] [place] [address] Phone Care Team Providers Care Armature Winder Repairer Name Role Phone Unavailable Primary Care [...] tablet 11 3 Active Vitamin D, Ergocalciferol, 61543 units capsule Use 500 mcg in the [...] Hypercholesterolemia 09/24/2019 021 Hypertensive heart disease w [facility] congestive heart failure 09/24/2019 01/24/2022 [...] PM EST) Hemoglobin A1C 6.0(H) (4.0-5.6) % [facility] Comment: MONITORING: In known diabetic patients, hemoglobin A1c targets should be discussed with health care provider. DIAGNOSTIC USE: The [place] Diabetes Association (ADA) and the World Health [...] Supplement 1 Testing performed or reported by [facility], a Service of [facility], [address] [place] [address] Elvira Lopez MD, Major Account Representative [facility]# [id number] Blood specimen (specimen) Venous blood / Unknown 10/25/2022 1:48 PM EST 10/25/2022 1:54 PM EST us [facility] BLOOD ORDERABLES Final Re sult [facility] from Last 3 Months or Most Recently Relevant to Health Maintenance Insurance [facility] One Care Dual SNP ([id number]) [place] [id number] [place] [id number] , [place] [id number] [place] [id number]
--- OUTSIDE RECORDS SUMMARY | 2025-07-17 14:58 | XMS_ITS | Encounter Summary ---
Author Organization [employer] Address [address] [facility] 7t [place] [address] Care Team Providers Care Poultry Hatchery Manager Name Role Phone Kristi Warren Primary Care Provider [phone] Reason for Visit * Reason Onset Date Comments Referral 03/29/2023 Encounter Details Date Type Department Care Team ([facility] st Contact Info) Description 03/29/2023 Telephone [facility] MEDICINE [address] [place] [address] Kristi Warren ANP [address] [place] [address] Referral Social History Tobacco Use Types Packs/Day [...] referral for Podiatry. Please contact pt at [phone] Pakistani Speaker documented in this encounter Plan of Treatment Upcoming Encounters Date Type Department Care Team (Late st Contact Info) Description 08/21/2025 9:00 AM EST Office Visit [facility] MEDICINE [address] [place] [address] Kristi Warren ANP [address] [place] [address] documented as of this encounter Visit Diagnoses Not on filedocumented in this encounter Care Teams Poultry Hatchery Manager Relationship Specialty Start Date End Date Kristi Warren ANP [address] [place] [address] PCP - General Family Medicine 03/24/20 [facility] 08/09/24 12/19/24 [facility] 12/09/24 documented as of this encounter
--- OUTSIDE RECORDS SUMMARY | 2025-07-17 14:58 | XMS_ITS | Patient Health Record ---
Author Organization [facility] Address [address] [place] [address] Care Team Providers Care Survey Technologist Name Role Phone Kristi Warren Primary Care Provider Fan Simons Unavailable [phone] Allergies No Known Allergies Reason For Referral [...] Problem Acquired hammer toe of right foot (10250682851381 05) Other hammer toe(s) (acquired), right foot (M20.41) Active confirmed Problem Type 2 diabetes mellitus with peripheral angiopathy (165722242) Type 2 diabetes mellitus with diabetic peripheral angiopathy without gangrene (E11.51) Active confirmed Problem Acquired hammer toe of left foot (85527282880771 03) Other hammer toe(s) (acquired), left foot (M20.42) Active confirmed Plan Of Treatment Pending Test Test Name Order Date [id number] NAIL, 6 OR MORE 09/14/2020 [id number] NAIL, 6 OR MORE 12/14/2020 [id number] NAIL, 6 OR MORE 02/22/2021 [id number] NAIL, 6 OR MORE 04/29/2021 [id number] NAIL, 6 OR MORE 08/11/2021 [id number] NAIL, 6 OR MORE 10/20/2021 [id number] NAIL, 6 OR MORE 12/30/2021 [id number] NAIL, 6 OR MORE 03/23/2022 [id number]-[id number] NAIL, 6 OR MORE 06/06/2022 52593-[id number] SKIN LESIONS, OVER 4 06/06/20 22 [id number] SKIN LESIONS, OVER 4 12/31/19 22 [id number] SKIN LESIONS, OVER 4 03/23/20 22 37733-[id number] SKIN LESIONS, OVER 4 10/20/19 22 42607-[id number] SKIN LESIONS, OVER 4 08/11/20 21 37290-XZPX SKIN LESIONS, OVER 4 04/29/20 21 51403-AHKO SKIN LESIONS, OVER 4 02/23/20 21 49985-NCIV SKIN LESIONS, OVER 4 12/15/19 21 87825-PAGO SKIN LESIONS, OVER 4 09/14/20 20 Insurance Providers Payer Name Payer Address Payer Phone Subscriber Number Group Number Insured Name Patient Relationship to Insured Coverage Start Date Coverage End Date [facility] [employer] Claims [address] [place] [id number] [phone] [id number] Albert Baeza Self - patient is the insured Medical (General) History Medical History History ICD Code Diabetic Surgical History Surgery Date(Month/Year) back surgery Hospitalization History Reason Date(Month/Year) [facility]- swollen legs
--- OUTSIDE RECORDS SUMMARY | 2025-07-17 14:58 | XMS_ITS | Encounter Summary ---
Author Organization [employer] Address [address] [facility] 7t [place] [address] Care Team Providers Care Housekeeping Laundry Worker Name Role Phone Kristi Warren Primary Care Provider [phone] Reason for Visit * Reason Onset Date Comments Durable Medical Equipment 04/20/2023 Encounter Details Date Type Department Care Team (Late st Contact Info) Description 04/20/2023 Telephone [facility] MEDICINE [address] [place] [address] Kristi Warren ANP [address] [place] [address] Durable Medical Equipment Social History Tobacco Use [...] Description 08/21/2025 9:00 AM EST Office Visit [facility] MEDICINE [address] [place] [address] Kristi Warren ANP [address] [place] [address] documented as of this encounter Visit Diagnoses Not on filedocumented in this encounter Care Teams Housekeeping Laundry Worker Relationship Specialty Start Date End Date Kristi Warren ANP [address] [place], [place] [phone] PCP - General Family Medicine 03/24/20 [facility] 08/09/24 12/19/24 [facility] 12/09/24 documented as of this encounter
--- OUTSIDE RECORDS SUMMARY | 2025-07-17 14:58 | XMS_ITS | Encounter Summary ---
Author Organization [facility], Address [address] [place] [address] Phone Care Team Providers Care Rn Postpartum Name Role Phone Unavailable Primary Care Provider Unavailabl e Reason for Visit * Reason Comments Med Refill Encounter Details Date Type Department Care Team (Late st Contact Info) Description 09/15/2023 Refill [facility], [address] [place] [address] Jt Ochoa PA [address] [place] [address] Social History Tobacco Use Types [...]
--- OUTSIDE RECORDS SUMMARY | 2025-07-17 14:58 | XMS_ITS | Encounter Summary ---
Author Organization [employer] Address [address] [facility] 7t [place] [address] Care Team Providers Care Payroll Benefits Administrator Name Role Phone Kristi Warren Primary Care Provider [phone] Reason for Visit * Reason Onset Date Comments Med Refill 04/12/2023 Encounter Details Date Type Department Care Team ([facility] st Contact Info) Description 04/12/2023 Telephone [facility] MEDICINE [address] [place] [address] Kristi Warren ANP [address] [place] [address] Med Refill Social History Tobacco Use Types [...] Description 08/21/2025 9:00 AM EST Office Visit [facility] MEDICINE [address] [place] [address] Kristi Warren ANP [address] [place] [address] documented as of this encounter Visit Diagnoses Not on filedocumented in this encounter Care Teams Payroll Benefits Administrator Relationship Specialty Start Date End Date Kristi Warren ANP [address] [place] [address] PCP - General Family Medicine 03/24/20 [facility] 08/09/24 12/19/24 [facility] 12/09/24 documented as of this encounter
--- OUTSIDE RECORDS SUMMARY | 2025-07-17 14:58 | XMS_ITS | Encounter Summary ---
Author Organization [employer] Address [address] [facility] 7t [place] [address] Care Team Providers Care Concrete Rubber Name Role Phone Kristi Warren Primary Care Provider [phone] Reason for Visit * Reason Onset Date Comments Durable Medical Equipment 07/27/2023 Encounter Details Date Type Department Care Team (Late st Contact Info) Description 07/27/2023 Telephone [facility] MEDICINE [address] [place] [address] Kristi Warren ANP [address] [place] [address] Durable Medical Equipment Social History Tobacco Use [...] 07/27/2023 3:44 PM EDT Tc from [facility] requesting DME for pt on glucometer kit. Any question contact [facility] documented in this encounter Plan of Treatment Upcoming Encounters Date Type Department Care Team (Late st Contact Info) Description 08/21/2025 9:00 AM EST Office Visit [facility] MEDICINE [address] [place] [address] Kristi Warren ANP [address] [place] [address] documented as of this encounter Visit Diagnoses Not on filedocumented in this encounter Care Teams Concrete Rubber Relationship Specialty Start Date End Date Kristi Warren ANP [address] [place] [address] PCP - General Family Medicine 03/24/20 [facility] 08/09/24 12/19/24 [facility] 12/09/24 documented as of this encounter
--- OUTSIDE RECORDS SUMMARY | 2025-07-17 14:58 | XMS_ITS | Encounter Summary ---
Author Organization [facility], Address [address] [place] [address] Phone Care Team Providers Care Storage Center Manager Name Role Phone Unavailable Primary Care Provider Unavailabl e Encounter Details Date Type Department Care Team (Late st Contact Info) Description 01/27/2023 Orders Only [facility], [address] [place] [address] Jt Ochoa PA [address] [place] [address] Stage 3a chronic kidney disease [...]
--- OUTSIDE RECORDS SUMMARY | 2025-07-17 14:58 | XMS_ITS | Encounter Summary ---
Author Organization [facility], Address [address] [place] [address] Phone Care Team Providers Care Trial Attorney Name Role Phone Unavailable Primary Care Provider Unavailabl e Encounter Details Date Type Department Care Team (Late st Contact Info) Description 10/07/2022 Orders Only [facility], [address] [place] [address] Jt Ochoa PA [address] [place] [address] Stage 3a chronic kidney disease [...] 1:48 PM EST) Iron 70 (45-160) MCG/DL [facility] UIBC 153 (110-370) MCG/DL [facility] TIBC 223 (155-530) MCG/DL [facility] Iron Saturation (TSat) 31 (20-55) % [facility] Comment: Testing performed or reported by [facility], a Service of [facility], [address] [place] [address] Elvira Lopez MD, Fashion Illustrator [facility]# [id number] Blood specimen (specimen) Venous blood / Unknown 10/25/2022 1:48 PM EST 10/25/2022 1:54 PM EST Jt [facility] BLOOD ORDERABLES Final Re sult [facility] * (ABNORMAL) Hemoglobin A1c (10/25/2022 1:48 PM EST) Hemoglobin A1C 6.0(H) (4.0-5.6) % [facility] Comment: MONITORING: In known diabetic patients, hemoglobin A1c targets should be discussed with health care provider. DIAGNOSTIC USE: The [place] Diabetes Association (ADA) and the World Health [...] Supplement 1 Testing performed or reported by [facility] [email or web address], a Service of [facility], [address] [place] [address] Elvira Lopez MD, Fashion Illustrator CLIA# [id number] Blood specimen (specimen) Venous blood / Unknown 10/25/2022 1:48 PM EST 10/25/2022 1:54 PM EST Jt [facility] BLOOD ORDERABLES Final Re sult Performing Organization Address [facility] de Phone Number [facility] * (ABNORMAL) PTH, intact (10/25/2022 1:48 PM EST) PTH, Intact 105(H) (15-65) PG/ML [facility] Comment: Testing performed or reported by [facility], a Service of [facility], [address] [place] [address] Elvira Lopez MD, Fashion Illustrator CLIA# [id number] Blood specimen (specimen) Venous blood / Unknown 10/25/2022 1:48 PM EST 10/25/2022 1:54 PM EST Jt [facility] BLOOD ORDERABLES Final Re sult Performing Organization Address [facility] Co de Phone Number [facility] * Urine Protein / creatinine ratio (10/25/2022 1:48 PM EST) [facility] Protein/Creatin e Ratio 0.14 (0-0.2) [facility] Protein, Urine 13 MG/DL [facility] Creatinine, Urine 96.2 MG/DL [facility] Comment: Testing performed or reported by [facility], a Service of [facility], [address] [place] [address] Elvira Lopez MD, Fashion Illustrator [facility]# [id number] Urine specimen (specimen) Urine specimen obtained by clean catch procedure / Unknown 10/25/2022 1:48 PM EST 10/25/2022 1:54 PM EST Jt [facility] URINE ORDERABLES Final Re sult [facility] * (ABNORMAL) Urinalysis, Complete w/reflex to Culture (10/25/2022 1:48 PM EST) [facility] Appearance LIGHT YELLOW [facility] Comment:CLEAR Specific [place] 1.014 (1.002-1. 030) [facility] pH Urine 6.0 (5.0-8.0) [facility] Albumin, Urine TRACE(A) (NEG) [facility] Glucose, Ur NEGATIVE (NEG) [facility] Ketones, Urine NEGATIVE (NEG) [facility] Bilirubin Urine NEGATIVE (NEG) [facility] Hemoglobin Presence in Urine NEGATIVE (NEG) [facility] Nitrite, Urine NEGATIVE (NEG) [facility] Leukocyte Esterase Urine NEGATIVE (NEG) [facility] Urobilinogen Urine NORMAL (NORM) MG/DL [facility] WBC, Urine 1 (0-5) /HPF [facility] RBC, Urine 1 (0-3) /HPF [facility] Mucus, Urine SLIGHT /LPF [facility] Hyaline Casts, Urine 4(H) (0-2) LPF [facility] Clarity CLEAR (CLEAR) [facility] CULTURE INDICATED CULTURE NOT INDICATED [facility] Comment: Testing performed or reported by [facility], a Service of [facility], [address] [place] [address] Elvira Lopez MD, Fashion Illustrator [facility]# [id number] Urine specimen (specimen) Urine specimen obtained by clean catch procedure / Unknown 10/25/2022 1:48 PM EST 10/25/2022 1:54 PM EST us Jt [facility] URINE ORDERABLES Final Re sult [facility] * (ABNORMAL) CBC and differential (10/25/2022 1:48 PM EST) White Blood Cells 10.3 (4.0-11.0 ) K/MM3 [facility] RBC 4.06(L) (4.70-6.1 0) M/MM3 [facility] Hgb 13.7 (13.7-17. 1) GM/DL [facility] Hematocrit 42.3 (40.5-50. 0) % [facility] MCV 104.2(H) (80.0-94. 0) FL [facility] MCH 33.7 (27.0-34. 0) PG [facility] MCHC 32.4(L) (33.0-37. 0) g/dL [facility] Platelets 232 (150-460) K/MM3 [facility] RDW-SD 50.7(H) (<47.0) FL [facility] MPV 9.8 (9.4-12.4 ) [place] [facility] nRBC Count 0.0 #/100 WBC'S [facility] NRBC Absolute 0.0 K/MM3 [facility] Neutrophils Abs Auto 6.6 (1.3-7.0) K/MM3 [facility] Lymphocytes Relative 2.6 (0.8-3.1) K/MM3 [facility] Monocytes 0.7 (0.4-1.3) K/MM3 [facility] Eosinophils Relative 0.2 (0.0-0.4) K/MM3 [facility] Basophil ABS 0.1 (0.0-0.1) K/MM3 [facility] Granulocytes Absolute 0.1 K/MM3 [facility] Neutrophils % Auto 64.3 (44-76) % [facility] Lymphs 25.4 (15-43) % [facility] Monocytes Absolute 7.0 (4.5-10.5 ) % [facility] Eosinophils 2.3 (0-6) % [facility] Basophils Relative 0.5 (0-2) % [facility] Immature Granulocytes 0.5 % [facility] Comment: Testing performed or reported by [facility], a Service of [address] [address] Elvira Lopez MD, Fashion Illustrator CLIA# [id number] Blood specimen (specimen) Venous blood / Unknown 10/25/2022 1:48 PM EST 10/25/2022 1:54 PM EST Jt [facility] BLOOD ORDERABLES Final Re sult Performing Organization Address [facility] Co de Phone Number [facility] * (ABNORMAL) Renal function panel (10/25/2022 1:48 PM EST) Pathologist [facility] Glucose 116(H) (70-99) MG/DL [facility] BUN 25(H) (8-23) MG/DL [facility] Creatinine 1.7(H) (0.7-1.2) MG/DL [facility] Sodium 139 (133-145) MMOL/L [facility] Potassium 4.5 (3.6-5.2) MMOL/L [facility] Chloride 100 (98-107) MMOL/L [facility] Bicarbonate (CO2) 33(H) (22-29) MMOL/L [facility] Anion Gap 6 (4-17) [facility] Albumin 4.2 (3.4-4.8) GM/DL [facility] Calcium 9.5 (8.6-10.5) MG/DL [facility] Phosphorus, Serum 3.8 (2.5-4.5) MG/DL [facility] Est GFR Non 44 ML/MIN/1.7 3 M2 [facility] Comment: Creatinine based estimated glomerular filtration (eGFR) in adults is calculated using the National Kidney Foundation recommended 2020 CKD-EPI equation. Estimates GFR from serum creatinine, age and sex. Testing performed or reported by [facility], a Service of [address] [address] Elvira Lopez MD, Fashion Illustrator CLIA# [id number] Blood specimen (specimen) Venous blood / Unknown 10/25/2022 1:48 PM EST 10/25/2022 1:54 PM EST Jt [facility] BLOOD ORDERABLES Final Re sult Performing Organization Address [facility] Co de Phone Number [facility] documented in this encounter Visit Diagnoses Diagnosis Stage 3a chronic kidney disease (HCC) documented in this encounter
--- OUTSIDE RECORDS SUMMARY | 2025-07-17 14:58 | XMS_ITS | Encounter Summary ---
Author Organization [employer] Address [address] [facility] [address] [place] [address] Care Team Providers Care Green End Worker Name Role Phone Kristi Warren Primary Care Provider [phone] Reason for Visit * Reason Onset Date Comments Nurse Triage 04/06/2023 Encounter Details Date Type Department Care Team ([facility] st Contact Info) Description 04/06/2023 Telephone [facility] [address] [place] [address] Kristi Warren ANP [address] [place] [address] Nurse Triage Social History Tobacco Use Types [...] The caller accepted this outcome Patient speaks trinidadian documented in this encounter Plan of Treatment Upcoming Encounters Date Type Department Care Team (Late st Contact Info) Description 08/21/2025 9:00 AM EST Office Visit [facility] [address] [place] [address] Kristi Warren ANP [address] [place] [address] documented as of this encounter Visit Diagnoses Not on filedocumented in this encounter Care Teams Green End Worker Relationship Specialty Start Date End Date Kristi Warren ANP [address] [place] [address] PCP - General Family Medicine 03/24/20 [facility] 08/09/24 12/19/24 [facility] 12/09/24 documented as of this encounter
--- OUTSIDE RECORDS SUMMARY | 2025-07-17 14:58 | XMS_ITS | Encounter Summary ---
Author Organization [facility], Address [address] [place] [address] Phone Care Team Providers Care Repair Service Dispatcher Name Role Phone Unavailable Primary Care Provider Unavailabl e Encounter Details Date Type Department Care Team (Late st Contact Info) Description 01/10/2024 Documentation Only [facility], [address] [place] [address] Iona Salas [address] [place] [address] Social History Tobacco Use Types [...]
--- OUTSIDE RECORDS SUMMARY | 2025-07-17 14:58 | XMS_ITS | Encounter Summary ---
Author Organization [employer] Address [address] [facility] [address] [place] [address] Care Team Providers Care Dumper Bailer Operator Name Role Phone Kristi Warren Primary Care Provider [phone] Reason for Visit * Reason Onset Date Comments Nurse Triage 04/18/2023 Encounter Details Date Type Department Care Team ([facility] st Contact Info) Description 04/18/2023 Telephone [facility] MEDICINE [address] [place] [address] Kristi Warren ANP [address] [place] [address] Nurse Triage Social History Tobacco Use Types [...] 04/18/2023 3:57 PM EDT Called pt. Via [facility] group therapy counselor [phone] Nadja. Pt. States that he had an appt. With Provider Kelvin today and he was feeling dizzy after his appt. While driving and had to puller over. Pt. States hehad some blood work done [...] accepted this outcome Please contact pt at [phone] (Amharic speaker) documented in this encounter Plan of Treatment Upcoming Encounters Date Type Department Care Team (Late st Contact Info) Description 08/21/2025 9:00 AM EST Office Visit [facility] [address] [place] [address] Kristi Warren ANP [address] [place] [address] documented as of this encounter Visit Diagnoses Not on filedocumented in this encounter Care Teams Dumper Bailer Operator Relationship Specialty Start Date End Date Kristi Warren ANP [address] [place] [address] PCP - General Family Medicine 03/24/20 [facility] 08/09/24 12/19/24 [facility] 12/09/24 documented as of this encounter
--- OUTSIDE RECORDS SUMMARY | 2025-07-17 14:58 | XMS_ITS | Encounter Summary ---
Author Organization [facility], Address [address] [place] [address] Phone Care Team Providers Care Promotions Intern Name Role Phone Unavailable Primary Care Provider Unavailabl e Encounter Details Date Type Department Care Team (Late st Contact Info) Description 10/19/2022 Documentation Only [facility], [address] [place] [address] Jt Ochoa PA [address] [place] [address] Social History Tobacco Use Types [...]
--- OUTSIDE RECORDS SUMMARY | 2025-07-17 14:58 | XMS_ITS | Encounter Summary ---
Author Organization [facility], Address [address] [place] [address] Phone Care Team Providers Care Bag Loader Machine Operator Name Role Phone Unavailable Primary Care Provider Unavailabl e Encounter Details Date Type Department Care Team (Late st Contact Info) Description 01/21/2022 Documentation Only [facility], [address] [place] [address] Jt Ochoa PA [address] [place] [address] Social History Tobacco Use Types [...]
--- OUTSIDE RECORDS SUMMARY | 2025-07-17 14:58 | XMS_ITS | Encounter Summary ---
Author Organization [employer] Address [address] [facility] 7t [place] [address] Care Team Providers Care Auto Club Safety Program Coordinator Name Role Phone Kristi Warren Primary Care Provider [phone] Reason for Visit * Reason Onset Date Comments ER Follow-up 04/22/2025 fyi 04/22/2025 Encounter Details Date Type Department Care Team (Late st Contact Info) Description 04/22/2025 Telephone [facility] MED[facility] [address] [place], [place] [phone] Kristi Warren ANP [address] [place], [place] [phone] ER Follow-up; Social History Tobacco Use Types [...] 2:30pm 04/22/25. Received call back from Ivette Mirror Maker to Dr Almazan. Pt had nurse visit last Monday04/18/25 and was instructed to hold metoprolol and furosemide. His next appt is 04/25/25 with CECILY Shirley at [facility] cardiology, and has Echo scheduled for 05/01/25. [...] office who is requesting office note from [facility] Card[facility] visit on 04/18/25.Per [facility], only nursing note available for review (copied below). Per note, pt to hold metoprolol and lasix (already being held). Called [facility] Card[facility] and left message for internist medical doctor md requesting call back to see if longer [...] : Date: 04/19/25 Hospital: Urgent care in [place] Seen for: neck pain Symptomatic No Pt was prescribed baclofen *sick on site visit scheduled for 04/[address] Okeefe has been canceled due to noty being needed. documented in this encounter Plan of Treatment Upcoming Encounters Date Type Department Care Team (Late st Contact Info) Description 08/21/2025 9:00 AM EST Office Visit [facility] [address] [place] [address] Kristi Warren ANP [address] [place], [place] [phone] documented as of this encounter Goals Goal [...] documented as of this encounter Care Teams [employer] Safety Program Coordinator Relationship Specialty Start Date End Date Krsiti Warren ANP [address] [place] [address] PCP - General Family Medicine 03/24/20 [facility] Care 12/09/24 documented as of this encounter
--- NOTE | 2025-07-17 15:01 | A.OFFVIS_ITS ---
Vital Signs 07/17/25 15:02 Height 5 ft 6 in Weight 146 lb BMI 23.6 BP 97/60 Blood Pressure Location Lt brachial Position Sitting Respiration 16 Pulse 73 Pulse Source Pulse Oximeter Pulse Oximetry (%) 96 Oxygen Delivery Method Room Air Intake Visit Reasons: Discuss MRI Results Mail Superintendent Required: Yes Mail Superintendent Name: Arin Allergies No Known Allergies (No Known Allergies*) Allergy (Verified 07/17/25 15:02) HPI Comments Details: Mr. Baeza is in my office today 2 years after the last visit he had in this office. At that time he was under care of Dr. Clark with cubital and carpal tunnel syndromes. He reported today that although the surgeries helped, his cervical pain continues to progressed. In the past he received diagnostic medial branch block C4-C5 C6 bilateral which did not demonstrate significant pain relief. Last time he reported weakness in bilateral upper extremities, numbness in bilateral bilateral hands and fingers, slight swelling in bilateral hands and fingers. I recommended him to go for MRI. The results of the MRI described as below. Fortunately there is no radiculopathy on the MRI. No myelopathy MRI demonstrated. 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 There is advanced spondylosis. I recommended patient to get engaged into physical therapy. We will schedule physical therapy to come to his house and help him to exercise. Prior: ? Patient is a 72 years old Azeri speaking male presenting with chronic neck pain. He is followed by orthopedic providers for right shoulder pain and has been referred to us for neck pain. Patient reports he recently received right shoulder cortisone injection on 07/07/22 with good relief and continues to have significant neck stiffness, pain with range of motion especially with right lateral bending and muscle tenderness with spasms. Patient reports associated bilateral upper and lower extremities numbness and tingling with history of bilateral carpal tunnel syndrome, diabetic peripheral neuropathy, DM on insulin, osteoarthritis, CKD and restless leg syndrome. Abnormal EMG and NVC for lower extremities on 07/08/20 showed moderate to severe axonal sensory and motor peripheral neuropathy. EMG and NVC for upper extremities on 01/2021 showed severe SM peripheral neuropathy with features of demyelination and axonal loss. Patient is under care of Dr. Fuller from neurology and has been treating peripheral neuropathy with gabapentin and for restless leg syndrome for which he takes pramipexole. For his chronic back and neck pain, the patient has failed previous physical therapy, NSAIDs, Gabapentin, muscle relaxers, and is currently on Tramadol with partial relief. Pain affects his daily activities, functioning and sleep. Patient denies any fever, weight changes, visual disturbances, dizziness, bowel or bladder incontinence, or saddle anesthesia. He reports weakness in lower extremities. Ambulates with mild antalgic gait without as sisting devices. Patient reports his blood sugars are well controlled and most recent A1C was around 6.0. Last FBS on 03/03/22 was 110. We will reach out to his PCP to confirm the most recent A1C readings. Patient reports receiving a Medrol Santosh a few times for neck pain which provided him significant relief. I discussed with the patient the importance of closely monitoring his blood sugars and total dose of all steroid injections from multiple providers to concentrate on most concerning pain generators as well as avoiding systemic oral steroids. Patient was previously referred to the Hand surgeon but has not been seen yet. Cervical spine xray 05/2022 showed mild levoscoliosis cervical spine with moderate left facet joint arthropathy. No visible acute fracture or dislocation seen. Lumbar s pine x-ray showed bilateral pedicle screws at L4 and S1 vertebra with interconnecting rods for posterior fusion. Patient has a history of posterior fusion with hardware from L4-S1 by Dr. Schulz in 2015. He then had a revision for loosening of screws in 2016. Dr. Schulz last saw him in February 2018. Per cardiology report, the patient had a trial of bilateral Medial Branch Blocks at L3, L4, and L5 to address his axial back pain in 2018. Unfortunately, the patient went into cardiac arrest with PEA upon anesthesia induction. He was then successfully resuscitated. Patient also underwent cardiac catheterization but no interventions. Per PCP notes regarding the patient's last colonoscopy in 2009, the patient also had bradycardic cardiac arrest due to anesthesia. [facility] Medical History (Updated 07/02/25 @ 07:34 by Jose Rollins MD) Atherosclerotic cardiovascular disease Encounter for assessment of decision-making capacity Pneumonia Encounter for medication monitoring Depression Restless leg syndrome Peripheral neuropathy Personal history of nicotine dependence History of non-ST elevation myocardial infarction (NSTEMI) (~09/2018) History of cardiac arrest (~09/2018) Other and unspecified hyperlipidemia Essential hypertension Type 2 diabetes mellitus with unspecified complications Primary osteoarthritis, left hand Primary osteoarthritis, right hand Surgical History History of epidermal inclusion cyst excision (~07/2021) History of hand surgery (~03/2015) History of cataract surgery (~2017) History of cardiac catheterization (~10/2018) Family History Mother No problems noted. Mother No problems noted. 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 Review of Systems Const All systems reviewed & are unremarkable except as noted in HPI and below ENT Reports Normal hearing present Neuro Reports Normal hearing present, Denies Abnormal speech present and Denies confusion Psych Denies confusion Physical Exam Vital Signs: Last Vital Signs Pulse 73 07/17/25 15:02 Resp 16 07/17/25 15:02 BP 97/60 07/17/25 15:02 Pulse Ox 96 07/17/25 15:02 Oxygen Delivery Method Room Air 07/17/25 15:02 BMI result Body Mass Index 23.6 Const General: cooperative, healthy appearing, no acute distress, alert and awake; No confusion Nutritional Appearance: well nourished Orientation/consciousness: patient oriented x3 and No confusion Limitations: no limitations HEENT Head: Yes normal to inspection, Yes normocephalic and Yes atraumatic Ears: hearing grossly normal bilaterally and external ears normal General nose exam: Normal external nose present and No nasal discharge present Face and sinus: Yes normal facial exam Eyes General: appearance normal, both eyes and all related structures Visual Vuong: normal visual vuong by confrontation Pupils: Equal, round and reactive pupils present EOM: EOMs intact bilaterally Neck Other: Patient with decreased cervical ROM in all planes/especially with right lateral rotation. Reports increased pain with cervical extension and flexion. Spurling compression test positive bilaterally. Pain is unchanged by Spurling maneuver with retraction. Elvey's tension test positive on the right, with radiation of pain from neck to wrist. Bilateral hand pain with h/o CTS. Lhermitte's test was negative. Diminished DTRs bilaterally. Patient demonstrated 5/5 motor strength of bilateral upper extremities. 2 + radial pulses. Significant tightness throughout right upper trapezius as well as TTP throughout bilateral upper trapezius muscles. Mild paravertebral tenderness over facet joints bilaterally. No clonus.rally. Neck: Yes normal visual inspection, Yes no lymphadenopathy, Yes no meningeal signs, Yes supple, No anterior neck swelling and Yes no JVD Resp Effort & Inspection: normal respiratory effort, able to speak in complete sentences, no audible wheezes, no cough, no respiratory distress and symmetric chest movement Cardio Jugular venous distension: no JVD Bruits: no carotid bruits Peripheral pulses: radial pulses present, posterior tibial pulses present and dorsalis pedis present GI Inspection: Yes normal to inspection and No distended Palpation (GI): Soft to palpation and nontender General: Yes no CVA tenderness Back/Spine/Pelvis Back: no CVA tenderness Cervical Spine: cervical muscular tenderness, pain with cervical ROM, cervical spasm, Cervical spine tenderness and No step off deformity Thoracic/Lumbar Spine: thoracic and lumbar spine normal to inspection, Thoracic/lumbar spine scar(s), No paraspinal muscle tenderness, thoraco-lumbar ROM limited, No thoracic spinal tenderness and No lumbar spinal tenderness Skin General skin exam: no rashes or lesions noted Wounds: no wounds Neuro General: patient oriented x3, gait normal, moves all extremities, no meningeal signs, CN's II-XI intact bilaterally and No confusion Cranial nerves: Yes Equal, round and reactive pupils present, Yes Bilaterally intact EOM present, Yes Nystagmus not present, Yes Normal hearing present and Yes Ability to bilaterally elevate shoulders present Cognition (Neuro): normal cognition Speech: No Abnormal speech present Gait exam (Neuro): Antalgic gait present and Assistive device used Motor exam (neuro): 5/5 motor strength present throughout, no tremor noted and Motor abnormalities not present Coordination: [id number] test normal Extrem Other: Bilateral hand and wrist pain with ROM. +Tinels bilaterally. No swelling or redness. General: Yes capillary refill normal, Yes no calf tenderness and Yes pedal edema Psych Appearance: grossly normal Mental Status: mental status grossly normal Speech and movement: Normal speech and movement present Affect: normal affect Attitude: cooperative Thought process: Normal thought process present Thought content: Normal thought content present Insight: Good insight present (Psych) Judgement: Good judgement present (Psych) Results Reviewed Results Reviewed: MR CERVICAL SPINE WITHOUT CONTRAST FINDINGS: Craniocervical junction is intact. Normal position of the cerebellar tonsils. No bone marrow STIR signal abnormality. Marginal osteophyte formation and decreased intervertebral disc height and signal C5-6 and to a lesser extent C6-7. Buckling deformity in the dorsal aspect of the thecal sac at C3-4, secondary to hypertrophy of the ligamentum flavum. 1 mm anterolisthesis C3-4 and C7-T1. There is a 3.4 mm thickened posterior longitudinal ligament, mostly central, extending from C2-3 to C7. C2-3: Central disc osteophyte complex formation and hypertrophy of the posterior longitudinal ligament abutting the cord with CSF effacement of the thecal sac and the ventral aspect. No cord signal abnormality. No neuroforamina stenosis. C3-4: Broad-based disc osteophyte complex formation resulting in ventral deformity of the spinal cord. No cord signal abnormality. Bilateral neuroforamina narrowing left greater than right. Degenerative changes in the left facet joint. C4-5: Broad-based disc osteophyte compresses formation resulting in ventral deformity of the spinal cord. No cord signal abnormality. No neuroforamina stenosis. C5-6: Broad-based disc osteophyte compresses formation resulting in ventral deformity of the spinal cord. No cord signal abnormality. Left neuroforamina narrowing on a degenerative basis. C6-7: Broad-based disc osteophyte compresses formation resulting in ventral deformity of the spinal cord. No cord signal abnormality. Right neuroforamina narrowing on a degenerative basis. C7-T1: Broad-based disc osteophyte compresses formation. No central spinal canal stenosis. No neuroforamina stenosis. No prevertebral compartment hematoma, mass or fluid collection. Flow-void signal within the main vessels is normal. Right vertebral artery is dominant. IMPRESSION: Multilevel cervical spondylosis, C3 C6-7 pronounced at C3-4 without cord edema and or myelopathy. 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 There is no spinal cord compression and signal abnormality, and the neural foraminal narrowing at several locations is minimal to moderate. I decided to try treatment of this pain with physical therapy. I will arrange physical therapy to treat patient at home. If this will not be helpful for this patient I will refer this patient to to neurosurgeon Dr. Millan to have 2nd opinion about his conditions. Orders: Orders PT Evaluation and Treatment Today M47.812 - Spondylosis without myelopathy or radiculopathy, cervical region Patient Instructions: I hereby testify that I spent 30 minutes in conversation with this patient as well as evaluating his diagnostic reports, evaluating MRI images, planning his care and organizing this note. Coding Level of Care Code Est Pt Level 4 (94628) Diagnoses Cervical spondylosis M47.812
[2025-07-17 15:02] VITALS: BP 97/60; PULSE 73; RESP 16; O2SAT 96; BMI 23.6
== END 2025-07-17 16:03 | disposition home or self-care (01) ==
LOC: HO.PMC 14:54
PROVIDERS: PCP Nurse Practitioner Primary Care; Visit Provider Anesthesiology
DX: M47.812 Spondylosis without myelopathy or radiculopathy, cervical region (principal)
CPT/HCPCS: 99214

== ENCOUNTER → 2025-07-17 14:54 | Outpatient (BNVA) | payer OTHER, SELFPAY | PROVIDERS: PCP Nurse Practitioner Primary Care; Visit Provider Anesthesiology | DX: M47.812 Spondylosis without myelopathy or radiculopathy, cervical region (principal) | CPT/HCPCS: 99212 ==

== ENCOUNTER 2025-07-18 06:06 | Outpatient (REF) | payer OTHER, SELFPAY ==
--- NOTE | ~2025-07-18 | CT_ITS ---
CLINICAL HISTORY: weight loss CT abdomen and pelvis with contrast Comparison: None provided Findings: No consolidation or effusion. The gallbladder and solid organs are within normal limits. No renal stones. No bowel obstruction, pneumoperitoneum, or pneumatosis. The urinary bladder wall is irregular in appearance, possible infiltrative process such as cystitis. Pelvic contents are otherwise unremarkable. Normal appendix. The bones are intact. IMPRESSION: Urinary bladder wall changes possibly related to cystitis. Clinical follow-up possibly in consultation with urology, recommended. This document has been electronically signed by: Wicho Iqbal MD on 07/20/2025 07:30:26
--- OUTSIDE RECORDS SUMMARY | 2025-07-18 06:10 | XMS_ITS | Data Portability ---
Author Organization [facility], Main Office Address [address] [facility], [address] [place] [address] Care Team Providers Care Business Banker Name Role Phone SAMSON PETERSON - 2ND [...] and Address Organization Details Recorded Time Hypoxia [id number] Active 2023 Nayely Lucas NP [address] [facility], [address], [place], [address], [facility] 4 10:29:30 Pneumonia 806114501 Active 2023 Nayely Lucas NP [address] [facility], [address], [place], [address], [facility] 4 10:29:34 Acute respiratory failure 35949106 Active 2023 Nayely Lucas NP [address] [facility], [address], [place], [address], [facility] 4 10:29:54 Pneumothorax 03143657 Active 2023 Nayely Lucas NP [address] [facility], [address], [place], [address], [facility] 4 10:30:00 Septic shock 07680234 Active 2023 Nayely Lucas NP [address] [facility], [address], [place], [address], [facility] 4 10:30:21 Metabolic encephalopathy 68049231 Active 2023 Nayely Lucas NP [address], [address], [place], [address], [facility] 4 10:30:35 Impaired cognition 536957604 Active 2023 Nayely Lucas NP [address], [address], [place], [address], [facility] 4 10:30:50 Traumatic hematuria 20544454 Active 2023 Nayely Lucas NP [address], [place], [address], [facility] 4 10:32:30 Closed fracture of rib 11777057 Active 2023 Nayely Lucas NP [address], [place], [address], [facility] 4 10:32:51 Bradycardia 27293477 Active 2023 Nayely Lucas NP [address], [place], [address], [facility] 4 10:33:18 Hypertensive disorder 97231576 Active 2023 Nayely Lucas NP [address], [address], [place], [address], [facility] 4 10:33:26 Hyperlipidemia 85394808 Active 2023 Nayely Lucas NP [address], [place], [address], [facility] 4 10:33:47 Type 2 diabetes mellitus 68870659 Active 2023 Nayely Lucas NP [address], [place], [address], [facility] 4 10:33:55 Rsszp-tl-xvtgi ic renal failure 384757088 Active 2023 Nayely Lucas NP [address], [place], [address], [facility] [employer] 4 10:34:44 Coronary arterioscleros is 25253298 Active 2023 Nayely Lucas, CECILY [address] [facility], [address], [place], [address], [facility] 4 10:34:53 Problem Notes None recorded. Medical [...] TAKE 1 TABLET BY MOUTH EVERY MORNING 09/25 /2024 completed Not Available Not Available Not Available [...] Not Available Not Available Not Available [employer] [place] Lite kit USE DIRECTED TO TEST BLOOD [...] Not Available Not Available [employer] [place]ley 2 [place] USE DIRECTED SCAN EVERY 8 HOURS 07/03 completed Not Available Not Available Not Available Vitals Date Recorded Body weight Heart rate Respiratory rate Body temperature Oxygen saturation Oxygen saturation in Arterial blood by Pulse oximetry Systolic And Diastolic Provider Name and Address Organization Details Last Updated DateTime 4 [address]405.5 6 g 77 /min 18 /min 98 [degF] 98 % 98 % 132/72 mm[Hg] Nayely Lucas NP [address] [facility], [address], [place], [address], [facility] 4 19:37:18 Date Recorded Heart rate Respiratory rate Body temperature Oxygen saturation Oxygen saturation in Arterial blood by Pulse oximetry Systolic And Diastolic Provider Name and Address Organization Details Last Updated DateTime 4 52 /min 18 /min 98 [degF] 98 % 98 % 116/66 mm[Hg] ALEC LIRA NP [address] [facility], [address], [place], [address], [facility] 4 12:47:24 Date Recorded Systolic And Diastolic Provider Name and Address Organization Details Last Updated DateTime 07/03/2024 119/69 mm[Hg] Desean Galvez MD [address] [facility], [facility] [address], [place], [address], [facility] 07/03/2024 13:36:50 Date Recorded Heart rate Respiratory rate Body temperature Oxygen saturation Oxygen saturation in Arterial blood by Pulse oximetry Systolic And Diastolic Provider Name and Address Organization Details Last Updated DateTime 4 52 /min 17 /min 98.1 [degF] 97 % 97 % 112/60 mm[Hg] ALEC LIRA NP [address] [facility], [address], [place], [address], [facility] 4 12:29:58 Date Recorded Body weight Heart rate Respiratory rate Body temperature Oxygen saturation Oxygen saturation in Arterial blood by Pulse oximetry Systolic And Diastolic Provider Name and Address Organization Details Last Updated DateTime 4 71431.9 3 g 70 /min 18 /min 98 [degF] 97 % 97 % 124/68 mm[Hg] Nayely Lucas NP [address] [facility], [facility] [address], [place], [address], [facility] 4 13:19:54 Social History Question Answer Notes LastModified by Organizat ion Details LastModified Time Tobacco Smoking Status Former Smoker Nayely Lucas NP [address] [facility], [address], [place], [address], [facility] 06/26/2024 11:48:17 Do You Have An Advance Directive? No Information not available 06/26/2024 What Is Your Code Status? Full Code Wants To Be Full Code Information not available 06/26/2024 Where Do You Live? Apartment Lives On 7th Floor, Elevator In Building Information not available 06/26/2024 Do You Have A Medical Power Of Cutting Inspector? No Information not available 06/26/2024 What Was The Date Of Your Most Recent Tobacco Screening? 06/26/2024 Information not available 06/26/2024 Do You Have An Out Of Hospital DNR? No Information not available 06/26/2024 What Is Your Relationship Status? Information not available 06/26/2024 How Much Tobacco Do You Smoke? 2 PPD Information not available 06/26/2024 Has Tobacco Cessation Counseling Been Provided? Yes Yes Information not available 06/26/2024 On What Date Was Tobacco Cessation Counseling Provided? 06/26/2024 Information not available 06/26/2024 Sex: Male Functional Status Question Answer Note LastModified by Organizat ion Details LastModified Time Do you use any illicit or recreational drugs? No Information not available 06/26/2024 Do you or have you ever used any other forms of tobacco or nicotine? No Information not available 06/26/2024 What is your level of alcohol consumption? None Information not available 06/26/2024 Mental Status None recorded. Family History Nothing Reported Notes:N/C Medical History No medical history recorded. Past Encounters Encounter ID Performer Location Encounter Start Date Encounter Closed Date Diagnosis/Indication Diagnosis SNOMED-CT Code Diagnosis ICD10 Code Diagnosis IMO Codes Diagnosis Note [id number] Nayely Lucas NP [address] [address] 06/26/2024 09:27:14 07/01/2024 14:09:08 Acute respiratory failure 67277323 J96.00 see above Septic shock 66154245 R6 5.21 resolved and hypothermi a resolved with care and fluidssee above Pneumonia 882200311 J18. 9 felt likely due to aspiration pna with acute resp failure, septic shock, hypoxia, and pneumothor ax required icu careresolv ed with abx and felt improved no longer on abx or r3wmrmiael l 2 puffs prn qidseen by speech-nila olmos speech herediet: modified texture, thin liquidsmon itor cbc weeklymoni tor for resp distress, vitals, reoccurenc e Hypoxia 978562888 R09.02 see above Pneumothorax 56676060 J9 3.9 pt with pneumothor ax and felt closed rib frac per summarytyl prn painmonito r for reoccurenc e Closed fra cture of rib 65579717 S22.39XD felt resolvedpt with pneumothor ax and felt closed rib frac per summarytyl prn painmonito r for reoccurenc e, resp distress Traumatic hematuria 9556 7008 R31.9 Hematuria resolved, thought to be from traumatic insertion. He was seen by Urology, and had CBI. Crowder catheter was removed 06/21, voiding well sincemonit or for diff urination Impaired cognition 63567 6002 R41.89 possible dementia? cognition improved during hospitaliz ationfelt related to metabolic encephalop athyBIMS 07/23 today, monitor for improvemen the is very clear about full code for molst todaywill monitor for need to invoke with met encephalop athy improvingm onitor for changes Metabolic encephalopathy 56099607 G93.41 possible dementia? cognition improved during hospitaliz ationfelt related to metabolic encephalop athyquetia pine 12.5 mg po bid prn agitationt hiamine 100 mg po dialy started in hosptrazod one 50 mg po at supper dailymonit or for changes Acute-on-c hronic renal failure 202200005 N17.9 SUSHILA resolved with tx and fluidsmoni tor with history of CKDbmp weekly Hypertensive disorder 38 884594 I10 pt with hypotensio n initially with [...] as needed Type 2 saji betes mellitus 28236328 E11.9 insulin sliding scalemonit or BS tid and acmonitor Ha1c prn Hyperlipidemia 25977600 E78.5 atorvastat in 40 mg po qhsmonitor Coronary arteriosclerosis 43088509 I25.10 atorvastat in 40 mg po qhsmetopro lol reduced dose to 25mg BID with holding parameters Eliquis 5 mg BID per cardiology for afibfollow with cards outpt prnmonitor Electrolyte imbalance 10 6421533 E87.8 imbalance of electrolyt es in hosppotass ium phosphates packet po bid 280-160-25 0 MGmonitor bmp weekly Asthenia 63859632 R53.1 pt with asthenia sp found downPT OT eval and treatmonit or Bradycardia 01755842 R00 .1 bradycardi a with VT, SVT and afibmetopr olol reduced to 25 mg po bidmonitor for reoccurenc e, vitalsbmp weekly x3 weeks Thyroid st imulating hormone level above reference range 403679842 R94.6 tsh elevated in hosp free t 4 0.73, tsh 8.38unclea r if hx of thyroid disease or newnot on meds at this timewill recheck tsh and free t4 next weekmonito r hr and bp daily x 2 weeks Neck pain 83332871 M54.2 reports some mid neck painxray done in hospital start lidocaine patch daily in amtyl prnmonitor Cigarette smoker 0800611 7 F17.210 reports he is a smoker for >12yrs and is quittinghe would like NRT patch today, reports urges to smoke06/26 start 7 mg nicotine patch daily, off at nightmonit or for need [place] 716985167 R29.6 found on ground with fallsuppor tive carept ot eval and treatwalke r or cane at baselinemo nitor [id number] Nayely Lucas NP [address] [place] [address] 07/01/2024 12:53:58 07/02/2024 14:42:53 Pneumonia 192052232 J18.9 felt likely due to aspiration pna with acute resp failure, septic shock, hypoxia, and pneumothor ax required icu careresolv ed with abx and felt improved no longer on abx or r0hotvqlll l 2 puffs prn qidseen by speech-nila olmos speech herediet: modified texture, thin liquidsmon itor cbc weekly to trend for infectionm onitor for resp distress, vitals, reoccurenc e Acute resp iratory failure 44827358 J96.00 see above Septic shock 89918404 R6 5.21 resolved and hypothermi a resolved with care and fluidssee above Hypoxia 949659765 R09.02 see above Pneumothorax 06984842 J9 3.9 pt with pneumothor ax and felt closed rib frac per summarytyl prn painmonito r for reoccurenc e Closed fra cture of rib 71584692 S22.39XD felt resolvedpt with pneumothor ax and felt closed rib frac per summarytyl prn painmonito r for reoccurenc e, resp distress Asthenia 87120100 R53.1 pt with asthenia sp found downPT OT eval and treatmonit or Traumatic hematuria 9556 7008 R31.9 Hematuria resolved, thought to be from traumatic insertion. He was seen by Urology, and had CBI.Crowder catheter was removed 06/21, voiding well sincemonit or for diff urination Impaired cognition 07239 6002 R41.89 possible dementia? cognition improved during hospitaliz ationfelt related to metabolic encephalop athyBIMS 07/23, monitor for improvemen the is very clear about full code for [facility] monitor for need to invoke with met encephalop athy improvingm onitor for changes Metabolic encephalopathy 68558627 G93.41 possible dementia? cognition improved during hospitaliz ationfelt related to metabolic encephalop athycontqu etiapine 12.5 mg po bid prn agitationt hiamine 100 mg po dialy started in hosptrazod one 50 mg po at supper dailymonit or for changes Acute-on-c hronic renal failure 185747158 N17.9 SUSHILA resolved with tx and fluidslabs as aboveavoid nephrotoxi c medsmonito r with history of CKDbmp weekly Hypertensive disorder 38 618921 I10 pt with hypotensio n initially with [...] as needed Type 2 saji betes mellitus 75918297 E11.9 BS stable 115-214con tinsulin sliding scalemonit or BS tid and acmonitor Ha1c prn Hyperlipidemia 09326367 E78.5 atorvastat in 40 mg po qhsmonitor Coronary arteriosclerosis 62103613 I25.10 atorvastat in 40 mg po qhsmetopro lol reduced dose to 25mg BID with holding parameters Eliquis 5 mg BID per cardiology for afibfollow with cards outpt prnmonitor Electrolyte imbalance 10 8509170 E87.8 imbalance of electrolyt es in hosppotass ium phosphates packet po bid 280-160-25 0 MGmonitor bmp weekly Bradycardia 63611601 R00 .1 bradycardi a with VT, SVT and afibmetopr olol reduced to 25 mg po bidmonitor for reoccurenc e, vitalsbmp weekly x3 weeks Thyroid st imulating hormone level above reference range 180192508 R94.6 tsh elevated in hosp free t 4 0.73, tsh 8.38unclea r if hx of thyroid disease or newnot on meds at this timewill recheck tsh and free t4 next weekmonito r hr and bp daily x 2 weeks Neck pain 10476607 M54.2 reports some mid neck painxray done in hospital start lidocaine patch daily in amtyl prnmonitor Cigarette smoker 5923866 7 F17.210 reports he is a smoker for >12yrs and is quittinghe would like NRT patch, reports urges to smoke7 mg nicotine patch daily, off at night, started on 06/26 heremonito r for need Falls 557662808 R29.6 found on ground with fall on 06/30 no injuriessu pportive carept ot eval and treatwalke r or cane at baselinemo nitor [id number] ALEC LIRA NP [facility] [place] [address] [facility] [address] 07/02/2024 08:52:00 07/03/2024 11:47:02 Pneumonia 403225356 J18.9 felt likely due to aspiration pna with acute resp failure, septic shock, hypoxia, and pneumothor ax required icu careresolv ed with abx, weaned off [id number] l 2 puffs qid prn available for SOB, coughRefer red to SCALE OPERATOR due to concern of aspiration Continue modified diet, thin liquids; advance as honey.monito r cbc weekly to trend for infection - does not appear order is in place, will order q mon. x 3monitor for resp distress, vitals, reoccurenc e [place] 894064180 R29.6 Found on ground with fall on 06/30 no injuriesWo rking with PT OTMonitor safety Acute resp iratory failure 99262227 J96.00 see above Septic shock 83947187 R6 5.21 resolved and hypothermi a resolved with care and fluidssee above Hypoxia 804561089 R09.02 see above Pneumothorax 75826591 J9 3.9 pt with pneumothor ax and felt closed rib frac per summarytyl prn painmonito r for recurrence Closed fra cture of rib 12857121 S22.39XD felt resolvedpt with pneumothor ax and felt closed rib frac per summarytyl prn painmonito r for reoccurenc e, resp distress Asthenia 73080654 R53.1 Very deconditio eryn due to hospitaliz ation and acute illnessPT OT eval and treatGoal is to return home. Traumatic hematuria 9556 7008 R31.9 Hematuria resolved, thought to be from traumatic insertion. He was seen by Urology, and had CBI.Crowder catheter was removed 06/21, voiding well sincemonit or for diff urination Impaired cognition 26229 6002 R41.89 possible dementia? cognition improved during hospitaliz ationfelt related to metabolic encephalop athyBIMS 07/23, monitor for improvemen the is very clear about full code for molstwill monitor for need to invoke with met encephalop athy improvingm onitor for changes Metabolic encephalopathy 16287389 G93.41 possible dementia? cognition improved during hospitaliz ationfelt related to metabolic encephalop athycontqu etiapine 12.5 mg po bid prn agitationt hiamine 100 mg po dialy started in hosptrazod one 50 mg po at supper dailymonit or for changes Acute-on-c hronic renal failure 848068954 N17.9 SUSHILA resolved with tx and fluidsNo lab order seen in [facility], will add BMP q wed. x 3avoid nephrotoxi c medsmonito r with history of CKDbmp weekly Hypertensive disorder 38 206440 I10 pt with hypotensio n initially with [...] as needed Type 2 saji betes mellitus 79565287 E11.9 BS stable, readings mostly 100scontin sulin sliding scalemonit or BS tid and acmonitor Ha1c prn Hyperlipidemia 38152877 E78.5 atorvastat in 40 mg po qhsmonitor Coronary arteriosclerosis 33420076 I25.10 atorvastat in 40 mg po qhsmetopro lol reduced dose to 25mg BID with holding parameters Eliquis 5 mg BID per cardiology for afibLasix and amlodipine for BP controlfol low with cards outpt prnmonitor Electrolyte imbalance 10 5409001 E87.8 imbalance of electrolyt es in hosppotass ium phosphates packet po bid 280-160-25 0 MGmonitor bmp weekly Bradycardia 10443507 R00 .1 bradycardi a with VT, SVT and afibmetopr olol reduced to 25 mg po bidcontinu e eliquis 5 mg bid for ACmonitor for recurrence , vitalsbmp weekly x3 weeks Thyroid st imulating hormone level above reference range 898221497 R94.6 tsh elevated in hosp free t 4 0.73, tsh 8.38unclea r if hx of thyroid disease or newnot on meds at this timewill recheck tsh and free t4 next weekmonito r hr and bp daily x 2 weeks Neck pain 44466132 M54.2 reports some mid neck painxray done in hospital9/ 18 started lidocaine patch daily in amtyl prnmonitor Cigarette smoker 2302590 7 F17.210 reports he is a smoker for >12yrs and is quittinghe would like NRT patch, reports urges to smoke7 mg nicotine patch daily, off at night, started 06/26 heremonito r for need to continue [id number] Desean Galvez MD [address] [address] 07/03/2024 13:35:04 07/04/2024 10:58:48 Metabolic encephalopathy 00614514 G93.41 see HPIimpaire d cognition felt secondary to septic shock with question of underlying dementiamo nitor level of insightpsy ch eval prnrequire d seroquel in hospital Pneumonia 636743700 J15. 8 respirator y failure due to pneumonian ow completed Abxmonitor respirator y status with recent pneumothor ax [place] 036678519 R29.6 fall [facility] erapy followingm onitor fall risk Septic shock 98740419 R6 5.21 secondary to pneumonian ow completed Abx Closed fra cture of rib 21493617 S22.39XD noted on imaging age indetermin atemonitor for pain and respirator y function Asthenia 54923430 R53.1 PT OT eval and treatmonit or fall risk and need for increased support in community Impaired cognition 00772 6002 R41.89 see abovemonit or need to invoke Acute-on-c hronic renal failure 137867901 N17.9 ARF on CRFmonitor renal functionav oid nephrotoxi c meds as ablenephro consult prn Hypertensive disorder 38 731022 I10 norvasc 10 mg qdmetoprol ol 25 mg bidlasix 40 mg qdmonitor bp with metoprolol dose adjusted Type 2 saji betes mellitus 48012068 E11.9 carrying dxcurrentl y on SSmonitor blood glucose Hyperlipidemia 20647294 E78.49 lipitor 40 mg qd continued Coronary arteriosclerosis 84053708 I25.10 hx of cardiac arrestmeto prolol 25 mg bidlipitor 40 mg qdon eliquis for a fibmonitor for sxupdate cards with concerns Bradycardia 97219446 R00 .1 eval by cards in hospital with metoprolol dose reduced now onmetoprol ol 25 mg bidmonitor rateupdate cards with concerns Thyroid st imulating hormone level above reference range 346648288 R94.6 recent elevated tshnot on synthroidr epeat in 4 weeks [id number] ALEC LIRA NP [facility] [place] [address] [place] [address] 07/09/2024 12:28:47 07/10/2024 10:47:27 Pneumonia 366251732 J18.9 [place] likely due to aspiration pna (also with acute resp failure, septic shock, hypoxia, and pneumothor ax requiring icu care)Resol kurt with abx, weaned off [id number] l 2 puffs qid prn remains available for SOB, cough - has not neededRefe rred to SCALE OPERATOR due to concern of aspiration Continue modified diet, thin liquids; advance as honey.WBC now WNRmonitor for resp distress, vitals, reoccurenc e [place] 556735570 R29.6 Found on ground with fall on 06/30 no injuriesWo rking with PT OTMonitor safety Pneumothorax 16561394 J9 3.9 pt with pneumothor ax and felt closed rib frac per summarytyl prn painmonito r for recurrence Closed fra cture of rib 25911913 S22.39XD felt resolvedpt with pneumothor ax and felt closed rib frac per summarytyl prn painmonito r for reoccurenc e, resp distress Asthenia 97607037 R53.1 Very deconditio eryn due to hospitaliz ation and acute illnessPT OT eval and treatGoal is to return home. Impaired cognition 48606 6002 R41.89 possible dementia? cognition improved during hospitaliz ationfelt related to metabolic encephalop athyBIMS 07/23, monitor for improvemen the is very clear about full code for [facility] monitor for need to invoke with met encephalop athy improvingm onitor for changes Metabolic encephalopathy 96464553 G93.41 possible dementia? cognition improved during hospitaliz [...] itor for changes Acute-on-c hronic renal failure 506033359 N17.9 SUSHILA resolved with tx and fluidsChec k BMP q wed. x 3, add Phos level as still on K and Na Phosphate packet bidavoid nephrotoxi c medsmonito r with history of CKDMaintai n hydration Hypertensive disorder 38 472432 I10 VSS.Meds adjusted in hosp. per CardsConti nue:Metopr olol 25mg BID with holding parameters (reduced dose)Amlod ipine 10 mg po dailyLasix 40 mg po dailymonit or vs with bp daily x 2 weeksadjus t as needed Type 2 saji betes mellitus 51174835 E11.9 BS stable, readings mostly 100scontin sulin sliding scalemonit or BS tid and acmonitor Ha1c prn Hyperlipidemia 88633430 E78.5 atorvastat in 40 mg po qhsmonitor Coronary arteriosclerosis 10334198 I25.10 atorvastat in 40 mg po qhsmetopro lol reduced dose to 25mg BID with holding parameters Eliquis 5 mg BID per cardiology for afibLasix and amlodipine for BP controlfol low with cards outpt prnmonitor Electrolyte imbalance 10 5626610 E87.8 imbalance of electrolyt es in hosppotass ium phosphates packet po bid 280-160-25 0 MGmonitor bmp weekly, add Phos level as well. Bradycardia 11443175 R00 .1 bradycardi a with VT, SVT and afibmetopr olol reduced to 25 mg po bidcontinu e eliquis 5 mg bid for ACmonitor for recurrence , vitalsbmp weekly x3 weeks Thyroid [address] imulating hormone level above reference range 349988223 R94.6 tsh elevated in hosp free t 4 0.73, tsh 8.38unclea r if hx of thyroid disease or newnot on meds at this timeRechec k tsh and free t4 on 07/03 - still elevated 8.67, FT4 1.16.Will not add po supplement ation at this time.Can consider trending labs along with a FT3 if stays shelter Neck pain 64605910 M54.2 reports some mid neck painxray done in hospital started lidocaine patch daily in amtyl prnmonitor Cigarette smoker 8251612 7 F17.210 reports he is a smoker for >12yrs and is quittinghe would like NRT patch, reports urges to smoke7 mg nicotine patch daily, off at night, started 06/26 heremonito r for need to continue [id number] Nayely Lucas NP [facility] [address] [place] [address] 07/10/2024 13:19:10 07/11/2024 10:21:37 Pneumonia 252205063 J18.9 [place] likely due to aspiration pna (also with acute resp failure, septic shock, hypoxia, and pneumothor ax requiring icu care)Resol kurt with abx, weaned off F3Pisjeurl l 2 puffs qid prn remains available for SOB, cough - has not needed hereReferr ed to SCALE OPERATOR due to concern of aspiration Continue modified diet, thin liquids; advance as honey.WBC WNR on 07/03will follow with labs this weekmonito r for resp distress, vitals, reoccurenc ecbc and bmp [place] 758990507 R29.6 Found on ground with fall on 06/30 no injuriesWo rking with PT OTMonitor safety Pneumothorax [id number] J9 3.9 pt with pneumothor ax and felt closed rib frac per summarytyl prn painmonito r for recurrence Closed fra cture of rib 80733696 S22.39XD felt resolvedpt with pneumothor ax and felt closed rib frac per summary, no complicati ons notedtyl prn painmonito r for reoccurenc e, resp distress Asthenia 90051356 R53.1 Very deconditio eryn due to hospitaliz ation and acute illnessPT OT eval and treatGoal is to return home. Impaired cognition 19123 6002 R41.89 possible dementia? cognition improved during hospitaliz ationfelt related to metabolic encephalop athyBIMS 07/23, monitor for improvemen t, repeat he is very clear about [facility] for need to invoke with met encephalop athy improvingm onitor for changes Metabolic encephalopathy [id number] G93.41 possible dementia? cognition improved during hospitaliz ationfelt related to metabolic encephalop fuwbnhvo20 /2quetiapi ne 12.5 mg po bid prn agitation for 14 days and re-evalthi amine 100 mg po dialy started in hosptrazod one 50 mg po at supper daily(pt was on serequel 12.5 mg po bid and qhs sched which were dc'd today, unclear where this order is from)will leave prn Acute-on-c hronic renal failure [id number] N17.9 SUSHILA resolved with tx and fluidsChec k BMP q wed. x 3, add Phos level as still on K and Na Phosphate packet bidavoid nephrotoxi c medsmonito r with history of CKDMaintai n hydration Hypertensive disorder 38 528861 I10 vitals stableMeds adjusted in hosp. per CardsCont: Metoprolol 25mg BID with holding parameters (reduced dose)Amlod ipine 10 mg po dailyLasix 40 mg po dailymonit or vs with bp daily x 2 weeksadjus t as needed Type 2 saji betes mellitus 91939834 E11.9 BS 98-201, overall well controlled continsuli n sliding scalemonit or BS tid and acmonitor Ha1c prn Hyperlipidemia 98830002 E78.5 atorvastat in 40 mg po qhsmonitor Coronary arteriosclerosis 31841657 I25.10 atorvastat in 40 mg po qhsmetopro lol reduced dose to 25mg BID with holding parameters Eliquis 5 mg BID per cardiology for afibLasix and amlodipine for BP controlfol low with cards outpt prn, will need appt outptmonit or Electrolyte imbalance 10 5016030 E87.8 imbalance of electrolyt es in hospcontpo tassium phosphates packet po bid 280-160-25 0 MGmonitor bmp weekly, add Phos level as well.will request labs baylee Bradycardia 74368440 R00 .1 bradycardi a with VT, SVT and afibmetopr olol reduced to 25 mg po bid in hospcontin ueeliquis 5 mg bid for ACmonitor for recurrence , vitalsbmp weekly x3 weeks Thyroid st imulating hormone level above reference range 792909873 R94.6 tsh elevated in hosp free t 4 0.73, tsh 8.38unclea r if hx of thyroid disease or newnot on meds at this timeRechec k tsh and free t4 on 07/03 - still elevated 8.67, FT4 1.16.Will not add po supplement ation at this time.Can consider trending labs along with a FT3 if stays shelter Neck pain 09376960 M54.2 resolvedre ports some mid neck painxray done in hospitalco ntlidocain e patch daily in amtyl prnmonitor Cigarette smoker 0914950 7 F17.210 reports he is a smoker for >12yrs and is quitting7 mg nicotine patch daily, off at nightmonit or for need to continue Septic shock 33078035 R6 5.21 secondary to pneumonian ow completed Abxcbc and bmp baylee Health Concerns Section Related Observation LastModified by Organization Detai ls LastModified Time None Recorded Concern Status LastModified by Organization Details LastModified Time None Recorded Advance Directives Directive N: Payers Insurance Date Sequence Insurance Name Policy Number Policy Pinzon Covered Member ID Pinzon Member ID Guarantor Name 07/10/2024 1 [facility] - DOS ON OR AFTER 2023 - MEDICARE ADVANTAGE [place] (MEDICARE REPLACEMENT/ADV ANTAGE - PPO) Albert Posada [id number] Albert Posada Notes Date Note Type Note Provider Name and Address Organization Details Recorded Time 07/01/2024 text/html Pt is seen for an acute visit today. On 06/30 he was [...] hx of PEA arrest who presented to [facility] as a XAT 1 trauma after being [...] resolved and no signs of documented Dementia. [place] could be multifactorial delirium, unclear if superimposed on dementia. Seems to have had recent cognitive decline outpatient when discussed with HCP Daneila in hospital; they have noticed changes in [...] a full code. Nayely Lucas NP [address], [address], [place], [address], [facility] 07/01/2024 19:52:33 07/02/2024 text/html Skyler is seen today for an acute visit. He is a 74 yo male, recently admitted to [facility] from the hospital for continued care and [...] bradycardia, pnaFull code. ALEC LIRA NP [address], [address], [place], [address], [facility] 07/02/2024 13:24:14 07/03/2024 text/html Patient is a [...] dose reduced. ARF improved with supportive care Russian speaking heavy forging machine operator present however patient can communicate in kyrgyz PMH significant forcad hx cardiac arrestcrfdma fibhtn admit to facility for continued care and therapy eval and treat Desean Galvez MD [address], [address], [place], [address], [place] [employer] [facility] 07/03/2024 14:16:59 07/09/2024 text/html Skyler is seen today for an acute visit. He is a 74 yo male, recently admitted to [facility] from the hospital for continued care and rehab after an admission related to a fall, infection, SUHSILA, NSVT/VT, and delirium. Since admission here, he [...] nsg. notes or Psych consult seen in DEC regarding this med change. Upon exam, Albert is resting in bed, alert, in good spirits. Feeling well, denies any complaints, still eager to go home. No issues or concerns per nsg. today Cordon: high fall riskBIMS 07/23 PMH: coronary artery disease, CKD, Type 2 diabetes, with documented hx of PEA arrest, afib, bradycardia, pnaFull code. ALEC LIRA NP [address], [address], [place], [address], [facility] [employer] 07/09/2024 13:06:58 07/10/2024 text/html Albert is seen today for an acute visit. PMH: coronary artery disease, CKD, Type 2 diabetes, with documented hx of PEA arrest, afib, bradycardia, pna Pt is a 74 yo male, recently admitted to [facility] from the hospital for continued care and rehab after an admission requiring ICU care related to a fall, infection, SUSHILA, NSVT/VT, and delirium. He is inquiring about going home and found a fulling machine operator to help at home care in which Viktoria is at bedside. After reviewing his recent hospitalization and needs with Albert and NANNY BABYSITTER all in agreement to plan for discharge on Monday when NANNY BABYSITTER, nursing, PT/OT, and pcp and cardiology appts can be set up. This will give him a few more days to be monitored with recent changes in meds and vitals aswell as to work with therapy to get stronger. aquaculture worker at bedside and in agreement. Since [...] falling asleep as he very fatigued today. Bravo: high fall riskBIMS 07/23 Full code. Nayely Lucas NP [address], [address], [place], [address], [facility] - [employer] 07/10/2024 19:21:30
[2025-07-18 06:34] LABS: MANUAL DIFF FLAG NO
[2025-07-18 06:41] LABS: Hematocrit 44.5 % (42.0-52.0); Hemoglobin 15.5 g/dl (14.0-18.0); Imm Gran Abs Auto 0.03 X10*3/uL (0.00-0.03); Imm Gran Pct Auto 0.4 % (0.0-0.4); Lymphocytes Absolute Auto 2.6 X10*3/uL (1.2-4.9); Mean Corpuscular HGB Conc 34.8 g/dl (31.0-36.0); Mean Corpuscular Hemoglobin 34.7 pg (27.0-33.0); Mean Corpuscular Volume 99.6 fL (80.0-98.0); NRBC Abs Auto 0.000 X10*3/uL (0.0-0.012); NRBC Pct Auto 0.0 /100WBC (0.0-0.2); Platelet Count 178 X10*3/uL (160-400); Red Blood Count 4.47 X10*6/uL (4.60-5.80); White Blood Count 7.5 X10*3/uL (4.8-10.8)
[2025-07-18 06:51] LABS: Alanine Aminotransferase 46 U/L (0-40); Albumin Level 3.6 g/dL (3.5-5.0); Aspartate Amino Transferase 34 U/L (5-37); Magnesium 1.5 mg/dL (1.6-2.6); Total Protein 5.8 g/dL (6.5-8.0)
[2025-07-18 07:24] LABS: Alkaline Phosphatase 83 U/L (39-117)
[2025-07-18] MEDS: iohexoL 350 MG/ML 100 ML INFUS..BTL IV (08:46)
== END 2025-07-18 06:07 | disposition home or self-care (01) ==
LOC: HO.CT 06:06
PROVIDERS: PCP Nurse Practitioner Primary Care; Visit Provider Nurse Practitioner Primary Care
DX: R23.3 Spontaneous ecchymoses (principal); R53.83 Other fatigue; R79.89 Other specified abnormal findings of blood chemistry; R63.4 Abnormal weight loss
CPT/HCPCS: 36415; 74177; 80076; 83735; 85025; Q9967

== ENCOUNTER → 2025-07-18 06:11 | Outpatient (BNV) | payer OTHER, SELFPAY | PROVIDERS: PCP Nurse Practitioner Primary Care; Visit Provider Specialist | DX: R63.4 Abnormal weight loss (principal) | CPT/HCPCS: 74177 ==

== ENCOUNTER 2025-08-08 14:44 | Outpatient (REF) | payer OTHER, SELFPAY ==
--- NOTE | ~2025-08-08 | XR_ITS ---
EXAMINATION: XR CERVICAL SPINE CLINICAL INFORMATION: M48.02 - Spinal stenosis, cervical region COMPARISON: Previous x-ray March 2023 TECHNIQUE: 4 views of the cervical spine were obtained including flexion and extension. FINDINGS: The C7 vertebral body is not visualized. Bone alignment is normal. No fracture or dislocation. Mild degenerative spondylosis and disc space narrowing at C4-5 and C5-6. Degenerative changes of the C1 dens articulation. No instability on flexion-extension views. Prevertebral soft tissues are normal. Bilateral carotid calcification. XR/XR cervical spine 4V IMPRESSION: Degenerative changes. No instability on flexion-extension views. C7 vertebrae not visualized. Bilateral carotid calcification. Electronically signed by: Abigail Maxwell MD 08/08/2025 03:07 PM EDT
== END 2025-08-08 14:45 | disposition home or self-care (01) ==
LOC: HO.HOSX 14:44
PROVIDERS: PCP Nurse Practitioner Primary Care; Visit Provider Neurological Surgery
DX: M47.812 Spondylosis without myelopathy or radiculopathy, cervical region (principal)
CPT/HCPCS: 72050; 99212

== ENCOUNTER 2025-08-08 14:44 | Outpatient (AMB) | payer OTHER, SELFPAY ==
--- NOTE | 2025-08-08 14:47 | A.SPINEOV_ITS ---
Intake Visit Reasons: follow up with Xrays Intake Note: Mr. Baeza is here today for a F/u with x-rays. Crm Campaign Manager Required: Yes Crm Campaign Manager Language: Financial Specialist Services: Crm Campaign Manager Present Crm Campaign Manager Name: Carli Mayer LM Allergies No Known Allergies (No Known Allergies*) Allergy (Verified 08/08/25 15:07) Assessment & Plan Assessment & Plan (1) Cervical spondylosis: Code(s): M47.812 - Spondylosis without myelopathy or radiculopathy, cervical region Category: Medical Plan Dear colleague, On 08/08/2025, I saw for follow-up Albert Baeza. For extensive history physical exam and radiological findings I refer to the letter of JOSIE Palafox. The JOSIE thought it was a good idea if I would the patient for 2nd opinion. His main symptom is posterior neck pain that radiates to the posterior part of his head. Denies radiation down his arms. He denies dexterity loss. He ambulates with a walker. On exam, intact dexterity hands. Symmetrical reflexes. No Villalobos's. No Babinski's. I reviewed the MRI of the cervical spine that shows C3-4 spinal stenosis without spinal cord compression(there still CSF surrounding spinal cord). An x-ray of the cervical spine shows no signs of instability. I explained to the patient that cervical stenosis does not cause neck pain per se. This patient is usually present with neurological deficits. Instability of the neck could produce significant neck pain but his x-ray of the cervical spine stable. This patient is not a neurosurgical candidate for neck surgery to address his main syndrome of neck pain. I will refer him to our pain management team to see if they have any therapeutic options. I spent 20 minutes in his consult to review imaging and discussing plan of care. Yoel Millan MD, PhD Spine Fellowship Trained Neurosurgeon Director, [facility] Orders: Orders XR cervical spine 4V Today M48.02 - Spinal stenosis, cervical region Referrals Pain Management Referral M47.812 - Spondylosis without myelopathy or radiculopathy, cervical region Coding Level of Care Code Est Pt Level 3 (19036) Diagnoses Cervical spondylosis M47.812
--- OUTSIDE RECORDS SUMMARY | 2025-08-08 15:12 | XMS_ITS | Encounter Summary ---
Author Organization [employer] Address [address] [facility] [address] [place] [address] Care Team Providers Care Edger Automatic Name Role Phone Kristi Warren Primary Care Provider [phone] Reason for Visit * Reason Onset Date Comments Med Refill 04/12/2023 Encounter Details Date Type Department Care Team ([facility] st Contact Info) Description 04/12/2023 Telephone [facility] [address] [place] [address] Kristi Warren ANP [address] [place] [address] Med Refill Social History Tobacco Use Types [...] 9:00 AM EST Office Visit [facility] [address] [place] [address] Kristi Warren ANP [address] [place] [address] documented as of this encounter Visit Diagnoses Not on filedocumented in this encounter Care Teams Edger Automatic Relationship Specialty Start Date End Date Kristi Warren ANP [address] [place] [address] PCP - General Family Medicine 03/24/20 [facility] 08/09/24 12/19/24 [facility] 12/09/24 documented as of this encounter
--- OUTSIDE RECORDS SUMMARY | 2025-08-08 15:12 | XMS_ITS | Patient Health Record ---
Author Organization [facility] Address [address] [facility] [place] [address] Care Team Providers Care Cleaner Greaser Name Role Phone Kristi Warren Primary Care Provider Fan Simons Unavailable [phone] Allergies No Known Allergies Reason For Referral [...] Problem Acquired hammer toe of right foot (40442710132418 05) Other hammer toe(s) (acquired), right foot (M20.41) Active confirmed Problem Type 2 diabetes mellitus with peripheral angiopathy (134497810) Type 2 diabetes mellitus with diabetic peripheral angiopathy without gangrene (E11.51) Active confirmed Problem Acquired hammer toe of left foot (28240596174742 03) Other hammer toe(s) (acquired), left foot (M20.42) Active confirmed Plan Of Treatment Pending Test Test Name Order Date [id number] NAIL, 6 OR MORE 09/14/2020 29061-MKKMKJJ NAIL, 6 OR MORE 12/14/2020 96675-VMIAGCC NAIL, 6 OR MORE 02/22/2021 87037-ZNJAJQM NAIL, 6 OR MORE 04/29/2021 27026-RFMLCAU NAIL, 6 OR MORE 08/11/2021 34261-JTZBKVZ NAIL, 6 OR MORE 10/20/2021 87809-WVNMLVJ NAIL, 6 OR MORE 12/30/2021 19505-EUADEER NAIL, 6 OR MORE 03/23/2022 74724-MVKIRNU NAIL, 6 OR MORE 06/06/2022 48773-XIPF SKIN LESIONS, OVER 4 06/06/20 22 47373-ITDR SKIN LESIONS, OVER 4 12/31/19 22 03987-GTAD SKIN LESIONS, OVER 4 03/23/20 22 35644-TRWJ SKIN LESIONS, OVER 4 10/20/19 22 97833-AIHE SKIN LESIONS, OVER 4 08/11/20 21 67838-JENW SKIN LESIONS, OVER 4 04/29/20 21 87489-NNVQ SKIN LESIONS, OVER 4 02/23/20 21 19624-OSJT SKIN LESIONS, OVER 4 12/15/19 21 09498-IYLJ SKIN LESIONS, OVER 4 09/14/20 20 Insurance Providers Payer Name Payer Address Payer Phone Subscriber Number Group Number Insured Name Patient Relationship to Insured Coverage Start Date Coverage End Date [facility] [employer] Claims [address] [place] [id number] Albert Baeza Self - patient is the insured Medical (General) History Medical History History ICD Code Diabetic Surgical History Surgery Date(Month/Year) back surgery Hospitalization History Reason Date(Month/Year) [facility]- swollen legs
--- OUTSIDE RECORDS SUMMARY | 2025-08-08 15:12 | XMS_ITS | Encounter Summary ---
Author Organization [employer] Address [address] [place] [address] Care Team Providers Care Support Assistant Name Role Phone Kristi Warren Primary Care Provider [phone] Encounter Details Date Type Department Care Team (Late st Contact Info) Description 08/12/2024 Telephone [facility] [address] [place], [place] [phone] Kristi Warren ANP [address] [place] [address] Social History Tobacco Use Types Packs/Day Years [...] Description 08/21/2025 9:00 AM EST Office Visit [facility] [address] [place] [address] Kristi Warren ANP [address] [place] [address] documented as of this encounter Goals Goal [...] documented as of this encounter Care Teams Support Assistant Relationship Specialty Start Date End Date Kristi Warren ANP [address] [place] [address] PCP - General Family Medicine 03/24/20 [facility] 08/09/24 12/19/24 [facility] 12/09/24 documented as of this encounter
--- OUTSIDE RECORDS SUMMARY | 2025-08-08 15:12 | XMS_ITS | Encounter Summary ---
Author Organization [employer] Address [address] [facility] [address]t [place] [address] Care Team Providers Care Knobber Name Role Phone Kristi Warren Primary Care Provider [phone] Reason for Visit * Reason Onset Date Comments Durable Medical Equipment 04/20/2023 Encounter Details Date Type Department Care Team (Late st Contact Info) Description 04/20/2023 Telephone [facility] [address] [place] [address] Kristi Warren ANP [address] [place] [address] Durable Medical Equipment Social History Tobacco Use [...] Description 08/21/2025 9:00 AM EST Office Visit [facility] [address] [place] [address] Kristi Warren ANP [address] [place] [address] documented as of this encounter Visit Diagnoses Not on filedocumented in this encounter Care Teams Knobber Relationship Specialty Start Date End Date Kristi Warren ANP [address] [place], [place] [phone] PCP - General Family Medicine 03/24/20 [facility] 08/09/24 12/19/24 [facility] 12/09/24 documented as of this encounter
--- OUTSIDE RECORDS SUMMARY | 2025-08-08 15:12 | XMS_ITS | Encounter Summary ---
Author Organization [employer] Address [address] [facility] [address] [address] [place] [address] Care Team Providers Care Junior Bookkeeper Name Role Phone Kristi Warren Primary Care Provider [phone] Reason for Visit * Reason Onset Date Comments Results 07/21/2025 Encounter Details Date Type Department Care Team ([facility] st Contact Info) Description 07/21/2025 Results Follow-Up [facility] [address] [place] [address] Kristi Warren ANP [address] [place] [address] CT Abdomen Pelvis w/ Contrast Social History Tobacco Use Types Packs/Day Years [...] Telephone Encounter - Kandace Harris RN - 07/21/2025 12:[address] Abdomen Pelvis w/Contrast faxed to [facility] [place] [facility] will note asking for advisement regarding the findings. TC placed to the pt with BLS cyber forensics analyst #[id number] to inquire if the pt was having any urinary symptoms after CT findings. The pt only reported urinary frequency. The pt denied any burning, itching, back pain or blood in urine. Pt advised that this information will be sent back to PCP and if anyfurther questions arise the pt will be contacted. ----- Message from Kristi Warren sent at 07/21/2025 10:31 AM EDT ----- CT findings showed possible bladder wall changes r/t inflammation. Other organs looked fine. Reyna established with [facility] [place] urology - can you please fax this result to their office and ask Dr. Ragland to take a look? Thanks. Please inquire w/ pt is he has any urinary symptoms and if so please let clari. ----- Message ----- From: Amos Handley Results In Sent: 07/20/2025 8:24 AM EDT To: BATSHEVA Pereyra * Result Encounter Note - BATSHEVA Pereyra - 07/21/2025 10:[address] findings showed possible bladder wall changes r/t inflammation. Other organs looked fine. Reyna established with [facility] [place] u[facility] - can you please fax this result to their office and ask Dr. Ragland to take a look? Thanks. Please inquire w/ pt is he has any urinary symptoms and if so please let me know. documented in this encounter Plan of Treatment Upcoming Encounters Date Type Department Care Team (Late st Contact Info) Description 08/21/2025 9:00 AM EST Office Visit [facility] [address] [place] [address] Kristi Warren ANP [address] [place] [address] documented as of this encounter Goals Goal Patient Goal Type Associated Problems Recent Progress Patient-Stated? Author Blood Pressure < 140/90 Blood Pressure 104/70(2024 1:09 PM EDT) No Mike Harris, PharmLourdes Hemoglobin A1c < 7.5 Result Component 6.5( 3:05 PM EDT) No Mike Harris, PharmD documented as of this encounter Visit Diagnoses Not on filedocumented in this encounter Additional Health Concerns Assessment Noted Time PHQ-9 Depression Total Score: 0 01/08/20 25 1:15 PM EDT documented as of this encounter Care Teams Junior Bookkeeper Relationship Specialty Start Date End Date Kristi Warren ANP [address] [place] [address] PCP - General Family Medicine 03/24/20 [facility] 12/09/24 documented as of this encounter
--- OUTSIDE RECORDS SUMMARY | 2025-08-08 15:12 | XMS_ITS | Clinical Summary ---
Author Organization [employer] Address [address] [place] [address] Care Team Providers Care Concrete Tester Name Role Phone Neftaly Aguilar Primary Care Provider [phone] Allergies No known active allergies Medications * [...] per day. 90 tablet 3 08/07/20 24 Active acetaminophen (Tylenol Extra Strength) 500 MG tablet Take 2 tablets (1,000 mg) by mouth every 8 (eight) hours if needed for mild pain or moderate pain. 180 tablet 3 08/07/20 24 Active Continuous Glucose Double Backer (FreeStyle Sherley 2 [place]) deviceIndication s:Type 2 diabetes mellitus with stage 3 chronic kidney disease, with long-term current use of insulin, unspecified whether stage 3a or 3b CKD (HCC) USE DIRECTED SCAN EVERY 8 HOURS 1 each 08/07/20 24 Active Blood Glucose Monitoring Suppl (FreeStyle [place] Lite) w/Device kit USE DIRECTED TO TEST BLOOD SUGAR THREE TIMES DAILY 1 kit 08/07/20 24 Active naloxone (Narcan) 4 mg/0.1 mL nasal sprayIndications :Misuse of medication,residential (current) use of opiate analgesic Administer 1 [...] 3a or 3b CKD (HCC) USE DIRECTED TO TEST BLOOD SUGAR CHANGE EVERY 14 DAYS 2 each 3 11/20/19 25 Active FREESTYLE LITE test stripIndications :Type 2 diabetes mellitus with unspecified complications (HCC) test blood sugars twice a day 100 each 12/21/19 25 2025 Active Emollient (CeraVe Daily Moisturizing) lotionIndication [...] legs and arms 454 g 05/12/20 Active Aspirin Low Dose 81 MG EC tabletIndication s:History of non-ST elevation myocardial infarction (NSTEMI) TAKE 1 TABLET BY MOUTH AT BEDTIME 90 tablet 1 05/20/20 25 Active Continuous Glucose Sensor (FreeStyle Sherley 2 Plus Sensor) miscIndications: Diabetic nephropathy associated with type 2 diabetes mellitus (HCC) 1 each every 15 days. Change sensor every 15 days 2 each 06/02/20 Active Jardiance 25 MGIndications:Ty pe 2 diabetes [...] BEDTIME 45 tablet 1 06/24/20 25 Active magnesium oxide (Mag-Ox) 400 MG tabletIndication s:Hypomagnesemia Take 1 tablet (400 mg) by mouth Once per day. In evening 90 tablet 1 07/18/20 25 2025 Active capsaicin (Capzasin-HP) 0.1 % creamIndications :Neck pain APPLY 2 GRAMS TOPICALLY TO AFFECTED AREA(S) TWICE DAILY FOR PAIN 42.5 g 1 08/07/20 Active capsaicin (Capzasin-HP) 0.1 % creamIndications :Neck pain Apply 2g as needed up to twice daily for pain 42.5 g 1 05/12/20 25 2024 Discontinued Active Problems Problem Noted Date Diagnosed Date Hypomagnesemia 07/18/2025 Abnormal weight loss 04/01/2025 Hypotension 04/01/2025 Overview [...] , Patient to reach out to [facility] team as needed, Comply with medication , and Patient to engage in OP therapy Mild anxiety 08/22/2024 History of non-ST elevation myocardial infarctio n (NSTEMI) 08/06/2024 Overview (08/06/2024): (from coronary hypoperfusion during cardiac arrest after elective lumbar injection 09/28/18) Paroxysmal atrial fibrillation ([facility]) 024 Assessment & Plan (04/15/2025 2:49 PM EDT): I recommended for patient to go to the hospital with ambulance, he refused and signed AMA Assessment & Plan (08/06/2024 3:33 PM EDT): - patient has Holter monitor in June 2024 which was ordered by his embryology teacher. Results did not show atrial fibrillation. - the patient was seen by a embryology teacher while int he hospital and telemetry tracing showed atrial fibrillation per embryology teacher. - the patient was started on eliquis but it was not continued after [facility] was [facility] for unclear reasons. - due to increase risk of fall, will consult with embryology teacher. The patient is taking aspirin and cilostazol for PAD. Will consult with embryology teacher. Metabolic encephalopathy 08/06/2024 Assessment & Plan (08/06/2024 [...] to low BP. - will consult with embryology teacher for optimal BP management plan. Mood disorder 07/04/2017 Onychomycosis 07/04/2017 Osteoarthritis of right knee 07/04/2017 Tobacco dependence syndrome 07/04/2017 Stage 3 chronic kidney disease (CMS/HCC) 017 Overview (05/25/2023): Update for Diagnosis Load Retinopathy 05/29/2012 Encounters Date Type Department Care Team Description 08/07/2025 Refill [facility] [address] Neftaly Aguilar ANP Neck pain 07/21/2025 Results Follow-Up [facility] [place] [address] Abdomen Pelvis w/ Contrast 07/18/2025 Results Follow-Up [facility] [place] [address] Neftaly Aguilra ANP Magnesium, CBC auto differential 07/18/2025 Orders Only [place] [address] Neftaly Aguilar ANP Hypomagnesemia (Primary Dx) 07/01/2025 Orders Only GENERIC EXTERNAL DATA DEPARTMENT Provider, Generic External Data 06/23/2025 Refill [place] [address] Neftaly Aguilar ANP Type 2 diabetes mellitus with stage 3 chronic kidney disease, with long-term current use of insulin, unspecified whether stage 3a or 3b CKD (CMS/HCC); Insomnia, unspecified type 06/18/2025 Telephone [place] [address] Neftaly Aguilar ANP Durable Medical Equipment 06/12/2025 1:00 PM EDT Office Visit [place] [address] Neftaly Aguilar ANP Diabetic peripheral neuropathy (CMS/HCC) (Primary Dx); Cervical stenosis of spine; Moderate protein-calorie malnutrition (CMS/HCC); Frail elderly; Failed back surgical syndrome; Restless legs 06/12/2025 Travel 06/11/2025 Telephone [place] [address] Neftaly Aguilar ANP Durable Medical Equipment 06/05/[address] [address] Neftaly Aguilar ANP Prior Authorization 06/02/[address] [address] Phil, Katiana, RN Diabetic nephropathy associated with type 2 diabetes mellitus ([facility]) (Primary Dx) 05/27/2025 Orders Only GENERIC EXTERNAL DATA DEPARTMENT Provider, Generic External Data 05/26/[address] [address] Neftaly Aguilar ANP 05/23/2025 Orders Only [address] [address] Neftaly Aguilar ANP 05/23/[address] [address] Mary Carmen, MD Beny Insomnia, unspecified type 05/20/2025 Orders Only [address] [address] Neftaly Aguilar ANP Abnormal weight loss (Primary Dx) 05/20/2025 Telephone [facility] [address] [place] [address] ABD/PELVIS ORDER 05/19/[address] [address] Neftaly Aguilar ANP History of non-ST elevation myocardial infarction (NSTEMI) 05/12/2025 1:00 PM EDT Office Visit [address] [address] Neftaly Aguilar ANP Neck pain (Primary Dx); Dry skin; Easy bruising; Fatigue, unspecified type; Anorexia; Moderate protein-calorie malnutrition ([facility]) 05/12/2025 Travel 05/09/[address] [address] Neftaly Aguilar ANP chart prep 05/09/[address] [address] Neftaly Aguilar ANP Nurse Triage from Last 3 Months Immunizations Immunization Administration [...] Office Visit [facility] [address] [place], [place] [phone] Neftaly Aguilar ANP [address] [place] [address] Health Maintenance Due Date Last Done Comments CT Colonography 1950 FIT DNA/Cologuard 1950 FIT 1950 FOBT 1950 Sigmoidoscopy 1950 Colonoscopy 07/26/2020 07/26/2010 Colorectal Cancer Screening 07/26/2020 Hepatitis B Vaccines (2 of 3 - 19+ 3-dose series) 09/13/2024 08/16/2024 COVID-19 Vaccine (2023- season) 2025 08/06/2024, 07/11/2023, 07/14/2022, Additional history [...] Name Priority Date/Time Associated Diagnosis Comments XR CERVICAL SPINE 4V Routine 08/08/2025 2:[address] ABDOMEN PELVIS W CONTRAST Routine 07/20/2025 7:30 AM EDT Abnormal weight loss POCT CREATININE GFR Routine 07/18/2025 7 :59 AM EDT Hypomagnesemia CBC WITH AUTO DIFFERENTIAL Routine 07/18/2025 6:32 AM EDT Easy bruising MAGNESIUM Routine 07/18/2025 6:32 AM EDT Fatigue, unspecified type HEPATIC FUNCTION PANEL Routine 07/18/2025 6:32 AM EDT Elevated LFTs VITAMIN D 25-OH (D2 AND D3) Routine [...] Recently Relevant to Health Maintenance Results * XR CERVICAL SPINE 4V (08/08/2025 2:51 PM EDT) Anatomical Region Laterality Modality Abdomen Radiographic Annie ging 08/08/2025 2:51 PM EDT Narrative 08/08/2025 3:09 PM EDT [facility] [address] [place] [address] Drive [address] [place] [address] XRay Report Signed Patient: Albert Baeza MR#: [id number] : 1950 Acct:[id number] Age/Sex: 75 / M ADM Date: 08/08/25 Loc: [facility] Attending Dr: Yoel Millan MD, PhD Ordering Physician: Yoel Millan MD, PhD Date of Service: 08/08/25 Procedure(s): XR cervical spine 4V Accession Number(s): [id number] cc: Yoel Millan MD, PhD; NEFTALY AGUILAR NP Reason for Exam: M48.02 - Spinal stenosis, cervical region EXAMINATION: XR CERVICAL SPINE CLINICAL INFORMATION: M48.02 - Spinal stenosis, cervical region COMPARISON: Previous x-ray March 2023 TECHNIQUE: 4 views of the cervical spine were obtained including flexion and extension. FINDINGS: The C7 vertebral body is not visualized. Bone alignment is normal. No fracture or dislocation. Mild degenerative spondylosis and disc space narrowing at C4-5 and C5-6. Degenerative changes of the C1 dens articulation. No instability on flexion-extension views. Prevertebral soft tissues are normal. Bilateral carotid calcification. XR/XR cervical spine 4V IMPRESSION: Degenerative changes. No instability on flexion-extension views. C7 vertebrae not visualized. Bilateral carotid calcification. Electronically signed by: Abigail Maxwell MD 08/08/2025 03:07 PM EDT RP Dictated By: Abigail Maxwell MD Signed By: <Electronically signed by Abigail Maxwell MD in OV> 08/08/25 1507 DD/ 1451 TD/TT: 08/08/25 1500 Supervisor Dry Cleaning: ZAIN Procedure Note Donotuseinterpreter, Image - 08/08/2025 [facility] [address] [place] [address] [place] [address] XRay Report Signed Patient: Kanchan Baeza#: [id number] : 1950Acct:[id number] Age/Sex: 75 / MADM Date: 08/08/25 [facility]: Yoel Millan MD, PhD Ordering Physician: Yoel Millan MD, PhD Date of Service: 08/08/25 Procedure(s): XR cervical spine 4V Accession Number(s): [id number] cc: Yoel Millan MD, PhD; NEFTALY AGUILAR NP Reason for Exam: M48.02 - Spinal stenosis, cervical region EXAMINATION: XR CERVICAL SPINE CLINICAL INFORMATION: M48.02 - Spinal stenosis, cervical region COMPARISON: Previous x-ray March 2023 TECHNIQUE: 4 views of the cervical spine were obtained including flexion and extension. FINDINGS: The C7 vertebral body is not visualized. Bone alignment is normal. No fracture or dislocation. Mild degenerative spondylosis and disc space narrowing at C4-5 and C5-6. Degenerative changes of the C1 dens articulation. No instability on flexion-extension views. Prevertebral soft tissues are normal. Bilateral carotid calcification. XR/XR cervical spine 4V IMPRESSION: Degenerative changes. No instability on flexion-extension views. C7 vertebrae not visualized. Bilateral carotid calcification. Electronically signed by: Abigail Maxwell MD 08/08/2025 03:07 PM EDT RP Dictated By: Abigail Maxwell MD Signed By: <Electronically signed by Abigail Maxwell MD in OV> 08/08/25 1507 DD/ 1451 TD/TT: 08/08/25 1500 Supervisor Dry Cleaning: ZAIN [facility] External Provider IMG XR PROCEDURES Final Result * CT Abdomen Pelvis w/ Contrast (07/20/2025 7:30 AM EDT) Anatomical Region Laterality Modality Body, Pelvis, Abdomen Computed T omography 07/20/2025 7:30 AM EDT Narrative 07/20/2025 7:32 AM EDT [place] [address] [address] Scan Report Signed Patient: Albert Baeza MR#: [id number] : 1950 Acct:[id number] Age/Sex: 75 / M ADM Date: 07/18/25 Loc: HO.CT Attending Dr: Neftaly Aguilar NP Ordering Physician: NEFTALY AGUILAR NP Date of Service: 07/18/25 Procedure(s): CT abdomen pelvis w IV con Accession Number(s): [id number] cc: NEFTALY AGUILAR NP Report Number: [id number]: Total DLP = 362.00 mGy-cm Reason for Exam: weight loss CLINICAL HISTORY: weight loss CT abdomen and pelvis with contrast Comparison: None provided Findings: No consolidation or effusion. The gallbladder and solid organs are within normal limits. No renal stones. No bowel obstruction, pneumoperitoneum, or pneumatosis. The urinary bladder wall is irregular in appearance, possible infiltrative process such as cystitis. Pelvic contents are otherwise unremarkable. Normal appendix. The bones are intact. IMPRESSION: Urinary bladder wall changes possibly related to cystitis. Clinical follow-up possibly in consultation with urology, recommended. This document has been electronically signed by: Wicho Iqbal MD on 07/20/2025 07:30:26 Dictated By: Wicho Iqbal MD Signed By: <Electronically signed by Wicho Iqbal MD in OV> 07/20/[address] DD/ 9 TD/TT: 07/20/257[address] Supervisor Dry Cleaning: Procedure Note Donotuseinterpreter, Image - 07/20/[address] [address] [address] Scan Report Signed Patient: Kanchan Baeza#: [id number] : 1950Acct:[id number] Age/Sex: 75 / MADM Date: 07/18/25 Loc: HO.CT Attending Dr: Neftaly Aguilar NP Ordering Physician: NEFTALY AGUILAR NP Date of Service: 07/18/25 Procedure(s): CT abdomen pelvis w IV con Accession Number(s): [id number] cc: NEFTALY AGUILAR NP Report Number: [id number]: Total DLP = 362.00 mGy-cm Reason for Exam: weight loss CLINICAL HISTORY: weight loss CT abdomen and pelvis with contrast Comparison: None provided Findings: No consolidation or effusion. The gallbladder and solid organs are within normal limits. No renal stones. No bowel obstruction, pneumoperitoneum, or pneumatosis. The urinary bladder wall is irregular in appearance, possible infiltrative process such as cystitis. Pelvic contents are otherwise unremarkable. Normal appendix. The bones are intact. IMPRESSION: Urinary bladder wall changes possibly related to cystitis. Clinical follow-up possibly in consultation with urology, recommended. This document has been electronically signed by: Wicho Iqbal MD on 07/20/2025 07:30:26 Dictated By: Wicho Iqbal MD Signed By: <Electronically signed by Wicho Iqbal MD in OV> 07/20/25730 DD/ 9 TD/TT: 07/20/25729 Supervisor Dry Cleaning: Neftaly Aguilar ANP IMG CT PROCEDURES Edited Result - Final * POCT Creatinine GFR (07/18/2025 7:59 AM EDT) POCT Creatinine 0.6 0.5 - 1.4 mg/dL [facility] GFR POC >60 [facility] Comment:Chronic Kidney Disea se: Estimated GFR < 60 mL/min/1.74s2Tsaqtx Kidney Disease: Estimated GFR < 15 mL/min/1.73m2 07/18/2025 7:59 AM EDT 07/22/2025 9:20 AM EDT Narrative [facility] - 07/22/2025 9:22 AM EDT [id number] Neftaly Aguilar [facility] POINT OF CARE TEST DOCKED DE VICE ORDERABLES Final Result [facility] [address] [place] [phone] * (ABNORMAL) CBC auto differential (07/18/2025 6:32 AM EDT) White Blood Count 7.5 4.8 - 10.8 X10*3/uL [facility] Red Blood Count 4.47(L) 4.60 - 5.80 X10*6/uL [facility] Hemoglobin 15.5 14.0 - 18.0 g/dl [facility] Hematocrit 44.5 42.0 - 52.0 % [facility] Mean Corpuscular Volume 99.6(H) 80.0 - 98.0 fL [facility] Mean Corpuscular Hemoglobin 34.7(H) 27.0 - 33.0 pg [facility] Mean Corpuscular HGB Conc 34.8 31.0 - 36.0 g/dl [facility] Red Cell Distribution Width 13.4 11.0 - 16.0 % [facility] Platelet Count 178 160 - 400 X10*3/uL [facility] Mean Platelet Volume 9.6 9.4 - 12.4 fL [facility] Neutrophils Percent Auto 52.5 45 - 73 % [facility] Imm Gran Pct Auto 0.4 0.0 - 0.4 % [facility] Lymphocytes Percent Auto 35.2 20 - 40 % [facility] Monocytes Percent Auto 9.5 2 - 11 % [facility] Eosinophils Percent Auto 1.7 0 - 4 % [facility] Basophils Percent Auto 0.7 0 - 2 % [facility] NRBC Pct Auto 0.0 0.0 - 0.2 /100WBC [facility] Neutrophils Absolute Auto 4.0 2.0 - 8.3 x10*3/uL [facility] Imm Gran Abs Auto 0.03 0.00 - 0.03 X10*3/uL [facility] Lymphocytes Absolute Auto 2.6 1.2 - 4.9 X10*3/uL [facility] Monocytes Absolute Auto 0.7 0.1 - 1.2 X10*3/uL [facility] Eosinophils Absolute Auto 0.1 0.0 - 0.4 X10*3/uL [facility] Basophils Absolute Auto 0.1 0.0 - 0.2 X10*3/uL [facility] NRBC Abs Auto 0.000 0.0 - 0.012 X10*3/uL [facility] Blood Venous blood specimen / Unknown 07/18/2025 6:32 AM EDT 07/18/2025 6:32 AM EDT Neftaly Aguilar [facility] BLOOD ORDERABLES Final Resul t [facility] [address] [place] [address] [phone] * (ABNORMAL) Magnesium (07/18/2025 6:32 AM EDT) Magnesium 1.5(L) 1.6 - 2.6 mg/dL [facility] Blood Venous blood specimen / Unknown 07/18/2025 6:32 AM EDT 07/18/2025 6:32 AM EDT Neftaly Aguilar [facility] BLOOD ORDERABLES Final Resul t Performing Organization Address [facility]/ZIP Co de Phone Number [facility] [address] [place] [phone] * (ABNORMAL) Hepatic Function Panel (07/18/2025 6:32 AM EDT) Bilirubin, Total 1.5(H) 0.0 - 1.0 mg/dL [facility] Bilirubin, Direct 0.5 0.0 - 0.5 mg/dL [facility] Aspartate Amino Transferase 34 5 - 37 U/L [facility] Alanine Aminotransferase 46(H) 0 - 40 U/L [facility] Total Protein 5.8(L) 6.5 - 8.0 g/dL [facility] Albumin Level 3.6 3.5 - 5.0 g/dL [facility] Alkaline Phosphatase 83 39 - 117 U/L [facility] Blood Venous blood specimen / Unknown 07/18/2025 6:32 AM EDT 07/18/2025 6:32 AM EDT Neftaly Aguilar [facility] BLOOD ORDERABLES Final Resul t Performing Organization Address [facility] Co de Phone Number [facility] [address] [place] [phone] * VITAMIN D 25-OH (D2 AND D3) (07/01/2025 1:19 PM EDT) Vitamin D, 25-OH, D2 25 ng/mL [facility] Comment:This test was develo ped and its analytical performancecharacteristics have been determined by [employer] [place], [place]. It hasnot been cleared or approved by the U.S. Food and DrugAdministration. This assay has been validated pursuantto the CLIA regulations and is used for clinicalpurposes.THIS TEST WAS PERFORMED AT:[employer] [place] [phone] MCCURDY MD,PHD Vitamin D, 25-OH, D3 24 ng/mL [facility] Comment:This test was sky partida and its analytical performancecharacteristics have been determined by [employer] [place], [place]. It hasnot been cleared or approved by the U.S. Food and DrugAdministration. This assay has been validated pursuantto the CLIA regulations and is used for clinicalpurposes. Vitamin D, 25-OH, Total 49 30 - 100 ng/mL [facility] Comment:Vitamin D, 25-Hydrox y reports concentrations [...] = 30 ng/mL.For additional information, please refer tohttp://education.[employer]/faq/NGO327(This link is being provided for informational/educational purposes only.) 07/01/2025 1:19 PM EDT 07/01/2025 1:19 PM EDT us Generic External Data Provider LAB BLOOD ORDERAB LES Final Result [facility] [address] [place] [phone] * Vitamin B12 (Cobalamin) and Folate Panel, Serum (07/01/2025 1:19 PM EDT) Vitamin B12 271 200 - 900 pg/mL [facility] Comment:NORMAL 200-900 PG/ML INDETERMINATE 160-199 PG/ML DEFICIENT < 160 PG/ML Folate 6.2 > or = 4.0 ng/mL [facility] Comment:Reference Values:> o r = 4.0 ng/mL< 4.0 ng/mL suggests folate deficiency Methotrexate, aminopterin and folinic acid(leucovorin) are chemotherapeutic agents whose molecularstructures are similar to folate; therefore, the Architectfolate assay cannot be used for patients using these drugs. 07/01/2025 1:19 PM EDT 07/01/2025 1:19 PM EDT Generic External Data Provider LAB BLOOD ORDERAB LES Final Result Performing Organization Address [facility]/ZIP Co de Phone Number [facility] [address] [place] [phone] * TSH with Reflex to Free T4 (07/01/2025 1:19 PM EDT) Pathologist [facility] TSH reflex Free T4 2.50 0.32 - 4.0 uIU/mL [facility] 07/01/2025 1:19 PM EDT 07/01/2025 1:19 PM EDT Generic External Data Provider LAB BLOOD ORDERAB LES Final Result Performing Organization Address [facility] de Phone Number [facility] [address] [place] [phone] * (ABNORMAL) CBC (07/01/2025 1:19 PM EDT) Only the most recent of2 resultswithin the time period is included. White Blood Count 6.8 4.8 - 10.8 X10*3/uL [facility] Red Blood Count 4.64 4.60 - 5.80 X10*6/uL [facility] Hemoglobin 16.0 14.0 - 18.0 g/dl [facility] Hematocrit 46.9 42.0 - 52.0 % [facility] Mean Corpuscular Volume 101.1(H) 80.0 - 98.0 fL [facility] Mean Corpuscular Hemoglobin 34.5(H) 27.0 - 33.0 pg [facility] Mean Corpuscular HGB Conc 34.1 31.0 - 36.0 g/dl [facility] Red Cell Distribution Width 14.0 11.0 - 16.0 % [facility] Platelet Count 202 160 - 400 X10*3/uL [facility] Mean Platelet Volume 10.0 9.4 - 12.4 fL [facility] NRBC Pct Auto 0.0 0.0 - 0.2 /100WBC [facility] NRBC Abs Auto 0.000 0.0 - 0.012 X10*3/uL [facility] 07/01/2025 1:19 PM EDT 07/01/2025 1:19 PM EDT Generic External Data Provider LAB BLOOD ORDERAB LES Final Result Performing Organization Address City/[facility]/ZIP Co de Phone Number [facility] [address] [place] [phone] * Lipase (07/01/2025 1:19 PM EDT) Lipase 33 8 - 78 U/L [facility] 07/01/2025 1:19 PM EDT 07/01/2025 1:19 PM EDT Generic External Data Provider LAB BLOOD ORDERAB LES Final Result Performing Organization Address [facility] Co de Phone Number [facility] [address] [place] [address] [phone] * Testosterone, Total, males (Adult), [place] (05/27/2025 9:04 AM EDT) Testosterone, Total 300 250 - 1100 ng/dL [facility] Comment:Men with clinically significant hypogonadalsymptoms and testosterone values repeatedly inthe range of the 200-300 ng/dL or less, maybenefit from testosterone treatment afteradequate risk and benefits counseling.For additional information, please refer tohttp://education.[employer]/faq/CapnpCnhbpucbmfrcSRFGBPCPL516(This link is being provided for informational/educational purposes only.)This test was developed and its analytical performancecharacteristics have been determined by [employer] [place], [place]. It hasnot been cleared or approved by the U.S. Food and DrugAdministration. This assay has been validated pursuantto the CLIA regulations and is used for clinicalpurposes.THIS TEST WAS PERFORMED AT:[employer] [place] [address]XACSLFCDAVONTE MCCURDY MD,PHD 05/27/2025 9:04 AM EDT 05/27/2025 9:04 AM EDT Generic External Data Provider LAB BLOOD ORDERAB LES Final Result Performing Organization Address City/[facility]/ZIP Co de Phone Number [facility] [address] [place] [phone] * PSA,Total (05/27/2025 9:04 AM EDT) Pathologist [facility] Prostate Specific Antigen 0.38 <0.05 - 4.0 ng/mL [facility] Comment:PSA methodology: Abb wendy Alinarcisa i ChemiluminescentMicroparticle Immunoassay (CMIA) 05/27/2025 9:04 AM EDT 05/27/2025 9:04 AM EDT Generic External Data Provider LAB BLOOD ORDERAB LES Final Result Performing Organization Address [facility]/ZIP Co de Phone Number [facility] [address] [place] [phone] * Hepatitis C Antibody with Reflex to HCV, RNA, Quantitative, Real-Time PCR (03/31/2025 11:41 AM EDT) Pathologist [facility] Hepatitis C Antibody Nonreactive Nonreactive [facility] Comment:Antibodies to HCV no t detected; does not exclude early acuteHCV infection. Blood Venous blood specimen / Unknown 03/31/2025 11:41 AM EDT 03/31/2025 11:41 AM EDT Neftaly Aguilar ANP LAB BLOOD ORDERABLES Final Resul t Performing Organization Address [facility] Co de Phone Number [facility] [address] [place] [phone] * Lipid Panel, Standard (03/31/2025 11:41 AM EDT) Triglycerides 64 <150 mg/dL [facility] Comment:Desirable Triglyceri de: less than 150 mg/dLBorderline High Triglyceride 150-199 mg/dLHigh Triglyceride: 200-499 mg/dLVery High Triglyceride: greater than or equal to 5OO mg/dL Cholesterol 86 <200 mg/dL [facility] Comment:Desirable Cholestero l: less than 200 mg/dLBorderline High Cholesterol: 200-239 mg/dLHigh Cholesterol: greater than 239 mg/dL LDL Cholesterol Calculated 30 <100 mg/dL [facility] Comment:Desirable LDL: less than 100 mg/dLNear Optimal/Above Optimal LDL: 110- 129 mg/dLBorderline High LDL: 130-159 mg/dLHigh LDL: 160-189 mg/dLVery High LDL: greater than or equal to 190 mg/dL HDL Cholesterol 44 >40 mg/dL [facility] Comment:Desirable HDL: great er than 40 mg/dL Note: This HDL assay may give artificially low results in patients with liver disease. Blood Venous blood specimen / Unknown 03/31/2025 11:41 AM EDT 03/31/2025 11:41 AM EDT Neftaly Aguilar ANP LAB BLOOD ORDERABLES Final Resul t Performing Organization Address [facility]/ZIP Co de Phone Number [facility] [address] [place] [phone] * (ABNORMAL) POCT HGB A1C (03/13/2025 3:05 PM EDT) Hemoglobin A1C 6.5(A) 4.0 - 6.0 % QC Media Lot # [id number] Lot# Expiration Date Blood 03/13/2025 3:05 PM EDT us Neftaly HERMAN POINT OF CARE TEST ENTER/EDIT OR DERABLES Final Result * Colonoscopy (07/26/2010) Colonoscopy Normal Normal Historical Provider HEALTH MAINTENANCE Final Result from Last 3 Months or Most Recently Relevant to Health Maintenance Insurance [facility] OPTIONS (O D-SNP) JOSIE CUMMINGS [id number] [place] [phone] Advance Directives Documents on File Type Date Recorded 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
--- OUTSIDE RECORDS SUMMARY | 2025-08-08 15:12 | XMS_ITS | Encounter Summary ---
Author Organization [employer] Address [address] [facility] [address] [place] [address] Care Team Providers Care Vamp Liner Name Role Phone Kristi Warren Primary Care Provider [phone] Reason for Visit * Reason Onset Date Comments Referral 03/29/2023 Encounter Details Date Type Department Care Team ([facility] st Contact Info) Description 03/29/2023 Telephone [facility] [address] [place] [phone] Kristi Warren ANP [address] [place] [address] Referral Social History Tobacco Use Types Packs/Day [...] referral for Podiatry. Please contact pt at [phone] Tajik Speaker documented in this encounter Plan of Treatment Upcoming Encounters Date Type Department Care Team (Late st Contact Info) Description 08/21/2025 9:00 AM EST Office Visit [facility] [address] [place] [phone] Kristi Warren ANP [address] [place] [phone] documented as of this encounter Visit Diagnoses Not on filedocumented in this encounter Care Teams Vamp Liner Relationship Specialty Start Date End Date Kristi Warren ANP [address] [place] [phone] PCP - General Family Medicine 03/24/20 [facility] 08/09/24 12/19/24 [facility] 12/09/24 documented as of this encounter
--- OUTSIDE RECORDS SUMMARY | 2025-08-08 15:12 | XMS_ITS | Data Portability ---
Author Organization [facility], [facility] Address [address] [place] [address] Care Team Providers Care [place] Rafting Guide Name Role Phone HIM CCA OTHER NAME, KARLI Primary Care Provider [phone] Assessment Encounter Date Assessment Date Assessment LastModified by Organization Details LastModified Time 04/28/2025 04/28/2025 I provided real -time medical direction via phone for this encounter, and was available for additional phone based assistance as needed. I have reviewed and agree with the Assessment and Plan as documented by the Pricing Intern. We discussed the diagnostic uncertainty of home visits and the risk associated with this. In this case I felt this to be an acceptable and reasonable amount of risk given the benefit of avoiding an ED visit. The patient given the opportunity to ask questions. Advised f/u w/ pcp this week or next- if develops CP/severe SOB/turning blue/uncontrolled n/v/d/ AMS/ syncope/acute speech or vision changes or any focal numbness or weakness/hi fever / to call 911- he verbalized understanding of instructions to the Kazakh speaking medic [email or web address] Not available 04/28/2025 10:34:28 05/08/2025 05/08/2025 I provided real -time medical direction via phone for this encounter and was available for additional phone-based assistance as needed. I have reviewed and agree with the Assessment and Plan as documented by the Pricing Intern. Patient given the opportunity to ask questions. Our service contacted for an assessment of: ? acute hypotension As per above, patient's aide called for visit after taking the patient's BP this am and had a ? reading in the 50's for SBP. On the BP log it was in the upper 70's - not in the 50's. Patient states he feels fine and denies any light headedness, dizziness, CP, SOB and FREIRE. Denies any falls, N/V. Patient with chronic SBP in the 100 range per log reviewed by medic on the scene. Medic finds an occasional reading in the 80's. Patient states he doesn't drink as much water as he should. Also states he continues to have on-going neck pain from arthritis. States he has a cough that is occasionally productive of white sputum going on for about 2 months. Per healthcare corporate account director on the scene, SBP at baseline. AF. Non-toxic and NAD. Not orthostatic. Please read the healthcare corporate account director note for their exam findings. BMP and ECG reviewed. COVID and flu are negative. Impression: Chronic low SBP (baseline SBP is approx 100) with occasional hypotension to the 80's. Likely in the setting of medication use (Baclofen, Trazadone and Jardiance) and heat/humidity with poor po intake. Plan: Encouraged patient to drink more fluids particularly salt-containing liquids such as Gatorade when it is warm outside. F/u with PCP. May benefit from medication changes for chronic conditions. Would avoid drugs like Baclofen which he takes for neck pain. Allergies: Reviewed PCP f/u: Would benefit from an in-person evaluation for cervical neck pain, medication review. We discussed the diagnostic uncertainty of home visits and the risk associated with this. In this case, the patient and I felt this to be an acceptable and reasonable amount of risk given the benefit of avoiding an ED visit. We discussed the need to seek care urgently/emergentl y in the setting of any new or worsening serious symptoms, particularly fever chills lightheadedness altered mental status [email or web address] Not available 05/08/2025 10:52:07 Plan of Treatment Reminders Order Date Submit Date Provider Last Modified By Organization Details Last Modified Time Details Appointments None recorded. Lab rapid flu (A+B) [address] [facility], [address] [place] [address], [id number] 5 11:34:16 rapid SARS CoV 2 Ag, QL IA, respiratory specimen [address] [facility], [address] [place] [address], [id number] 5 11:34:44 BMP, serum or plasma [address] [facility], [address] [place] [address], [id number] 11:32:57 Referral None recorded. Procedures None recorded. Surgeries None recorded. Imaging electrocard iogram 2024 025 [email or web address] [facility], [address] [place] [address], [id number] 5 10:38:04 electrocard iogram [address] [facility], [address] [place] [address], [id number] 5 20:17:38 Medication Orders ketorolac 30 mg/mL injection solution [address] [facility], [address] [place] [address], [id number], 12:58:07 ibuprofen 400 mg tablet [address] [facility], [address] [place] [address], [id number], 10:33:08 Patient TargetsNo targets recorded. Patient InstructionsNo instructions recorded. Reason for Referral None Reported. Results Created Date Observation Date Name Description Value Unit Range Abnormal Flag Note LastModifiedBy Organization Detail LastModifiedTime 04/28/2004/28/2025 elect rocar diogr am No observ ation record ed. [email or web address] [address], [id number] 04/28/2025 15:51:16 05/08/2005/08/2025 elect rocar diogr am No observ ation record ed. [email or web address] [address], [id number] 05/08/2025 11:33:29 Result Notes None recorded. Medical Equipment None [...] Available Not Available No t Available [employer] [place] Lite kit USE DIRECTED TO TEST BLOOD [...] cm 98 % 98 % 97.8 [degF] 17834.6 g 124/73 mm[Hg] Not Available [facility] - production 5 10:30:57 Date Recorded Body height Heart rate Body weight Body temperature Respiratory rate Oxygen saturation Oxygen saturation in Arterial blood by Pulse oximetry Systolic And Diastolic Provider Name and Address Organization Details Last Updated DateTime 5 157.48 cm 56 /min 74765.6 g 98 [degF] 14 /min 96 % 96 % 112/72 mm[Hg] Not Available [facility] 5 10:15:53 Date Recorded Oxygen saturation Oxygen saturation in Arterial blood by Pulse oximetry Heart rate Body weight Body temperature Respiratory rate Systolic And Diastolic Systolic And Diastolic Provider Name and Address Organization Details Last Updated DateTime 5 96 % 96 % 56 /min 84061.8 8 g 97.9 [degF] 18 /min 106/53 mm[Hg] 96/52 mm[Hg] Not Available [facility] 5 12:49:35 Date Recorded Heart rate Respiratory rate Body temperature Oxygen saturation Oxygen saturation in Arterial blood by Pulse oximetry Systolic And Diastolic Systolic And Diastolic Provider Name and Address Organization Details Last Updated DateTime 5 87 /min 16 /min 97.5 [degF] 95 % 95 % 100/64 mm[Hg] 103/66 mm[Hg] Not Available [facility] 5 10:49:12 Date Recorded Heart rate Respiratory rate Body temperature Oxygen saturation Oxygen saturation in Arterial blood by Pulse oximetry Body weight Body height Systolic And Diastolic Provider Name and Address Organization Details Last Updated DateTime 5 68 /min 17 /min 97.9 [degF] 94 % 94 % 34273.7 2 g 172.72 cm 100/52 mm[Hg] Not Available [facility] 5 09:54:51 Social History None recorded. Functional Status None recorded. Mental Status None recorded. Family History Nothing Reported. Medical History No medical history recorded. Past Encounters Encounter ID Performer Location Encounter Start Date Encounter Closed Date Diagnosis/Indication Diagnosis SNOMED-CT Code Diagnosis ICD10 Code Diagnosis IMO Codes Diagnosis Note [id number] Mainor Hdz MD [facility] - [facility] [address] [place] [phone] 07/02/2022 18:35:48 07/04/2022 13:21:04 Diarrhea 75909451 R19.7 Mild. No s/s of dehyrdatio n. Labs notable for Welder of 1.9 (prior chart review shows Welder of 1.3-1.4 in 2019). Advised to stay hydrated and have close f/u with PCP [id number] Mansi Pratt MD Main - [facility] [address] [place] [id number] 10/24/2023 15:51:18 10/24/2023 22:23:32 Acute conjunctivitis of bilateral eyes [id number] 74831 H10.33 [id number] Kiana Ruiz MD Main - [facility] [address] [place] [id number] 04/17/2024 14:11:49 04/17/2024 21:39:36 Recurrent falls 131026859 R29.6 Labs stable for baseline CKD 3/ concern for hypotensio n-patient is being beta-block fidelia on metoprolol on with amlodipine -I have no access to prior EKGs or recent hospital notes After 1 L of IV fluid blood pressure slightly improved 98/56 with pulse of 62 [id number] Tate Manriquez MD Main - [facility] [address] [place] [id number] 05/25/2024 13:33:45 01/23/2025 20:10:16 Accidental fall 103538118 W19.XXXA As noted, we were called to see this patient regarding concerns of fall. Evaluation in the field was performed by my healthcare corporate account director colleague, as noted above, I provided real-time [...] of any new or worsening serious symptoms. [id number] DARIUS HARLEY MD Main - [facility] [address] [place] [id number] 07/25/2024 15:33:33 07/25/2024 17:37:14 Worried well [id number] Z71.1 Evaluation in the field was performed by my healthcare corporate account director colleague, as noted above, I provided real-time direction and supervisio n for this visit. The evaluation revealed a 74-year-ol d male, status post recent admission for acute respirator y failure with hypoxia, aspiration pneumonia, and septic shock following a serious fall, during which he was found unconsciou s by his BARBERING TEACHER. He was transferre d to [facility] until 07/13/24. 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 He denies fever, chills, chest pain, shortness of breath, nausea, vomiting, or diarrhea. He has been tolerating oral intake well. VS stableExam with clear lungs, abdomen soft NTND, no ZEV, no neuro deficits.A llergies reviewed . Impression :Worried but well Plan:-Reas surance was given by the healthcare corporate account director. -I reached out to [facility] to request assistance in notifying the City Treasurer regarding the patient s return home and [...] vomiting, diarrhea, dizziness or any other concerns. [id number] Lyudmila Saeed MD Main - [facility] [address] [place] [id number] 12/12/2024 10:30:46 12/12/2024 12:53:46 Pain of right knee joint [id number] 38662 M25.561 74 year old male being evaluated [...] assessment and plan as documented by the healthcare corporate account director. I provided real-time medical direction for this encounter and was immediatel y available to provide additional phone-base d assistance as needed. We discussed the diagnostic uncertaint y of home visits and associated risks. We discussed the need to seek care urgently/e mergently in the setting of any new or worsening symptoms. [id number] Tate Manriquez MD Main - [address] [id number] 02/27/2025 10:15:49 02/28/2025 11:22:08 Neck pain 18197108 M54.2 [id number] As noted, we were called to see this patient regarding concerns of neck pain. Evaluation in the field was performed by my healthcare corporate account director colleague, as noted above, I provided real-time [...] symptoms, particular ly new weakness, exertional pain. [id number] [facility] [address] [phone] 04/18/2025 12:49:33 04/20/2025 14:59:30 Neck pain [id number] M54.2 [id number] 75 year old male being evaluated for [...] assessment and plan as documented by the healthcare corporate account director. I provided real-time medical direction for this encounter and was immediatel y available to provide additional phone-base d assistance as needed. We discussed the diagnostic uncertaint y of home visits and associated risks. We discussed the need to seek care urgently/e mergently in the setting of any new or worsening symptoms. [id number] Kiana Ruiz MD [address] [phone] 04/28/2025 10:23:13 04/28/2025 14:59:03 Hypotensive episode 86012659 I95.9 [id number] Now resolved. Patient is asymptomat ic. EKG reveals no acute ischemia. reassuranc e provided -advised to continue regular medication s. -Call us if he feels he needs another visit Note sent to CP via CRC requesting they help the patient get a more accurate home BP cuff [id number] [facility] [address] [phone] 05/08/2025 09:54:46 05/09/2025 15:05:57 Low blood pressure 10172328 I95.9 [id number] Chronic cough 62354225 R 05.3 62569 Health Concerns Section Related Observation LastModified by Organization Detai ls LastModified Time None Recorded Concern Status LastModified by Organization Details LastModified Time None Recorded Advance Directives Directive None Recorded Payers Insurance Date Sequence Insurance Name Policy Number Policy Pinzon Covered Member ID Pinzon Member ID Guarantor Name 02/27/2025 1 [facility] - DOS PRIOR TO 2023 - DUAL ELIGIBLE (MEDICARE REPLACEMENT/ADV ANTAGE - HMO) Albert Aryan Posada [id number] Albert Aryan Posada 05/09/2025 1 [facility] - DOS ON OR AFTER 2023 - DUAL ELIGIBLE - ALF OPTIONS AND ONE CARE (MEDICARE REPLACEMENT/ADV ANTAGE - HMO) Albert Aryan Posada [id number] Albert Aryan Posada Notes Date Note Type Note Provider Name and Address Organization Details Recorded Time 12/12/2024 text/html [facility] Nurse Triage Notes (Padmini [...] Pain PMH: Hypertension, HIV/AIDS PMH Reviewed at 12/12/2024:08 Allergies Reviewed at 12/12/2024 - 09:08 Comments: Supervisor Hardboard verified the name//address and phone number. Pt [...] ..................... ..................... ..................... ..................... ..................... ..................... ............... Pricing Intern Note From Donald Mejia: Patient alert and [...] in extremities. Good ROM. Good skin TURGOR. [facility] advises patient should try ibuprofen, OTC. Orders ibuprofen 400 mg now. Red flags patient education discussed. Note left for caregiver. With instructions for ibuprofen dosing. Medication administered as ordered without complication. ..................... ..................... ..................... ..................... ..................... ..................... ............... [facility] Consulted: Lyudmila Saeed ..................... ..................... ..................... ..................... ..................... ..................... ............... Disposition: Fulfilled Lyudmila Saeed MD [address] [facility],[address], [place], [address], [facility] 12/12/2024 10:38:50 02/27/2025 text/html CRC Nurse Triage [...] Hypertension, HIV/AIDS PMH Reviewed at 02/27/2025 - :37 Allergies Reviewed at 02/27/2025:37 Comments: 75 y.o male complains of Abdominal Pain, Weakness Call completed with shellfish dredge operator. BARBERING TEACHER calling for for neck pain. He does [...] signs of when to seek emergency care. Pricing Intern Organization Information for Donald Mejia [place] Legal Name: [employer] Address: [address] [place] [address], [place] [address], Label Drier: Artemio Lomax MD CLIA No.: [id number] Pricing Intern POC Test Results from Donald Mejia [facility] (10:26:09) pH: 7.384 pH units pCO2: 53.8 mmHg pO2: 31.6 mmHg Na: 141 mmol/L K: 3.6 mmol/L iCa: 1.13 mmol/L Cl: 96 mmol/L TCO2: 31.4 mEq/L Hct: 41 % Hb: 14 g/dL Glu: 131 mg/dL Lac: 1.86 mmol/L Cr: 0.92 mg/dL BUN: 13 mg/dL A mmol/L HCO3: 32.2 mmol/L ..................... ..................... ..................... ..................... ..................... ..................... ............... Pricing Intern Note From Donald Mejia: Patient alert and [...] in all. Muscles of neck feel tense. [facility] [place] EPOC. Toradol 15 mg IM. Patient coached on use of ibuprofen and Tylenol. Medication administered as ordered without complication using five rights. Red flags, patient education discussed. ..................... ..................... ..................... ..................... ..................... ..................... ............... [facility] Consulted: Suresh Manriquez ..................... ..................... ..................... ..................... ..................... ..................... ............... Disposition: Fulfilled Tate Manriquez MD [address] [facility],[address], [place], [address], [facility] 02/28/2025 11:15:38 04/18/2025 text/html [facility] Nurse Triage Notes (Cecilia Mann): Reason For Request: neck pain Chief Complaints: Neck Pain PMH: Hypertension, HIV/AIDS PMH Reviewed at 04/17/2025 - :29 Allergies Reviewed at 04/17/2025:29 Comments: 75 y.o male complains of Neck Pain Patients surrogate calling in to place a referral. Per BARBERING TEACHER patient has been complaining of posterior neck pain, BARBERING TEACHER gave him tylenol, he is currently sleeping, but BARBERING TEACHER reports to surrogate he still seems to be in pain. Per surrogate the cabin supervisor have not reported any falls, trauma or [...] signs of when to seek emergency care. ..................... ..................... ..................... ..................... ..................... ..................... ............... Pricing Intern Note From Catherine Lui: Sent to a [...] pink, warm, dry; Pt was treated in [place] ED on 04/15 for low bp and dehydration. [facility] consulted; Pt takes Metoprolol 12.5mg daily. Pt has a immigration lawyer appt today and is told to hold Metoprolol until he talks to Cardiology. Surrogate is made aware. [facility] orders Toradol 15mg IM. Toradol 15mg IM administered. Red flags discussed. Pt has no further questions. ..................... ..................... ..................... ..................... ..................... ..................... ............... [facility] Consulted: Lyudmila Saeed ..................... ..................... ..................... ..................... ..................... ..................... ............... Disposition: [place] Lyudmila Saeed MD [address] [facility],[address], [place], [address], [facility] 04/18/2025 23:21:48 04/28/2025 text/html ROS as noted in the [facility] Nurse Triage Notes (Deepti Jaimes): Reason For Request: BARBERING TEACHER reporting low blood pressure 1st readin/50. 1462nd readin/56, 144 Denies: History of Heart Attack, in the setting of active chest pain Active Chest pain, radiates to neck jaw and or arm Diaphoretic/Sweating Describes as c rushing Sudden onset of nausea/Vomiting and shortness of breath. Shortness of Breath Unable to speak in full sentences without distress Palpitations, feeling dizzy Chest pain, increased fatigue CHF history, increased swelling and edema Weakness/tachycardia Chief Complaints: Low Blood Pressure PMH: Hypertension, HIV/AIDS PMH Reviewed at 04/28/2025:16 Allergies Reviewed at 04/28/2025 09:16 Comments: 75 y.o male complains of Low Blood Pressure Patients BARBERING TEACHER making referral She states he has been [...] signs of when to seek emergency care. Pricing Intern Organization Information for Reuben Curtis Business Legal Name: [employer] Address: [address] [place] [address], Label Drier: Rogers [place] No.: [id number] Pricing Intern POC Test Results from Reuben Curtis EKG (10:22:43) EKG test performed. Attachments uploaded as part of this test result can be found under Documents section. ..................... ..................... ..................... ..................... ..................... ..................... ............... Pricing Intern Note From Reuben Curtis: Encountered patient seated upright and conscious. Patient reports his BARBERING TEACHER arrange the appointment due to low blood [...] Extremities are free of trauma and edema. [facility] contacted: reports no intervention is needed as patient s blood pressure is within therapeutic levels when referring back to patient s previous charts. Patient s home blood pressure machine was used in order to compare with Zoll monitor and it was found to register 10 points lower systolic. [facility] reports they will input a note to [...] ..................... ..................... ..................... ..................... ..................... ..................... ............... [facility] Consulted: Kiana Ruiz ..................... ..................... ..................... ..................... ..................... ..................... ............... Disposition: Fulfilled Kiana Ruiz MD [address] [place] [address],[address], [place], [address], [facility] 04/28/2025 11:41:04 05/08/2025 text/html [facility] Nurse Triage Notes (Deepti Jaimes): Reason For Request: BP check/neck pain Patient Reports: Active Chest pain, radiates to neck jaw and or arm; Palpitations, feeling dizzy; Chest pain, increased fatigue; Weakness/tachycardia Denies: History of Heart Attack, in the setting of active chest pain Diaphoretic/Sweating Describes as c rushing Sudden onset of nausea/Vomiting and shortness of breath. Shortness of Breath Unable to speak in full sentences without distress CHF history, increased swelling and edema Chief Complaints: Low Blood Pressure, Dizziness PMH: Hypertension, HIV/AIDS PMH Reviewed at 05/08/2025:38 Allergies Reviewed at 05/08/2025:38 Comments: 75 y.o male complains of Low Blood Pressure, Dizziness Patients BARBERING TEACHER making referral SHe states patient is forbidding her and arguing with her about calling 911 she took his blood pressure just before calling and it was 56/42 P 155 and took it again and it was 56/51 p 93 unclear if correct based on symptoms. se states patient is complaining of tiredness dizziness, chest pain and neck pain that radiates to the back of the neck. Triage was limited due to language barrier. Nurse strongly recommended calling 911 and they refused. reviewed red flags. I provided information on the mobile health provider response time and advised the patient and/or caregiver to monitor reported signs and symptoms. I discussed the warning signs of when to seek emergency care. Pricing Intern Organization Information for Christopher Sanchez [place] Legal Name: [employer] Address: [address] [place] [address], Label Drier: Rogers Davidson MD CLIA No.: [id number] Pricing Intern POC Test Results from Christopher Sanchez Rapid COVID antigen (09:52:14) COVID: - Rapid influenza antigen (09:52:15) Flu: - Blood Glucose Measurement (09:52:38) Blood Glucose: 153mg/dL iSTAT Chem8+ (10:13:33) Na: 137mEq/L K: 4.3mEq/L Cl: 95mEq/L iCa: 1.20mmol/L TCO2: 31mmol/L Glu: 150mg/dL BUN: 10mg/dL Crea: 1.0mg/dL Hct: 44% Hb: 15g/dL Ammol/L Cartridge Number: --- Attachments uploaded as part of this test result can be found under Documents section. ..................... ..................... ..................... ..................... ..................... ..................... ............... Pricing Intern Note From Christopher Sanchez: Dispatched to the above address for 75 y/m with a cc of chest pain. Proper ppe was worn throughout the call. Upon arrival: Pt AOx4 in a supine position in the living room recliner. Pt filling winder greeted [facility] and gave a verbal report. BARBERING TEACHER stated that for the past 2-3 months pt has been having neck pain, has been prescribed Baclofen by his PCP (taking for the past month). BARBERING TEACHER stated that she has noticed that for the past 4-5 days pt has been having increased weakness/new onset of cough (coughing up white sputum)/hypotension, and this morning woke up with dizziness. BARBERING TEACHER stated that she keeps a log of pt BP daily and this morning pt BP was 58/42, pt was feeling dizzy, so [facility] (since pt did not want her to call 911). Pt AOx4 greeted [facility] and gave the same verbal report. [...] a supine position. Pt denied to having CHF/asthma/copd/pneum onia AOx4 - Airway: Patent - Breathing: equal chest rise and fall - LS: clear in the apices, diminished in the Right base. [facility] noted that pt had minor rhonchi LS when in a supine position, which cleared when he switched into a fowlers position. - Skin: pink, warm, dry - Pupils: PERRL - CMSx4 - Lower extremity: no edema noted. Head to toe body assessment: (-) DCAPBTLS. Pt denied to headache/sob/chest pain/abd pain/dizziness (currently)/nausea/vo miting/blood in urine/constipation/di arrhea/difficulty urinating/painful urination/flu like symptoms/fever/ falls. (-) COVID/FLU [...] - nose test normal, no neglect noted. [facility] ordered to do 12 lead (sinus rhythm, non diagnostic for STEMI), Successfully done. [facility] then gave orders for BMP (successfully done). [facility] [place] red flags to the pt/pt education. [facility] [place] note for the PCP. [facility] clear. All times approximate. [facility] [place] Orders: rapid flu (A+B): Performed rapid SARS CoV 2 Ag, QL IA, respiratory specimen: Performed BMP, serum or plasma: Performed electrocardiogram: Performed ..................... ..................... ..................... ..................... ..................... ..................... ............... [facility] Consulted: , ..................... ..................... ..................... ..................... ..................... ..................... ............... Disposition: Fulfilled Lo Medina MD [address] [facility],[address], [place], [address], MAURICE AVILA 05/08/2025 11:23:48
--- OUTSIDE RECORDS SUMMARY | 2025-08-08 15:12 | XMS_ITS | Encounter Summary ---
Author Organization [employer] Address [address] [facility] [address] [place] [address] Care Team Providers Care Marketing Intelligence Manager Name Role Phone Kristi Warren Primary Care Provider [phone] Reason for Visit * Reason Onset Date Comments Nurse Triage 04/18/2023 Encounter Details Date Type Department Care Team ([facility] st Contact Info) Description 04/18/2023 Telephone [facility] [address] [place] [address] Kristi Warren ANP [address] [place] [address] Nurse Triage Social History Tobacco Use Types [...] 04/18/2023 3:57 PM EDT Called pt. Via [employer] garment folder [id number] Nadja. Pt. States that he had an appt. With Provider Kelvin today and he was feeling dizzy after his appt. While driving and had to chain puller. Pt. States hehad some blood work [...] accepted this outcome Please contact pt at [phone] (Yoruba speaker) documented in this encounter Plan of Treatment Upcoming Encounters Date Type Department Care Team (Late st Contact Info) Description 08/21/2025 9:00 AM EST Office Visit [facility] [address] [place] [id number] Kristi Warren ANP [address] [place] [address] documented as of this encounter Visit Diagnoses Not on filedocumented in this encounter Care Teams Marketing Intelligence Manager Relationship Specialty Start Date End Date Kristi Warren ANP [address] [place] [address] PCP - General Family Medicine 03/24/20 [facility] 08/09/24 12/19/24 [facility] 12/09/24 documented as of this encounter
--- OUTSIDE RECORDS SUMMARY | 2025-08-08 15:12 | XMS_ITS | Encounter Summary ---
Author Organization [employer] Address [address] [facility] [address] [place] [address] Care Team Providers Care Marine Design Engineer Name Role Phone Kristi Warren Primary Care Provider [phone] Reason for Visit * Reason Onset Date Comments Nurse Triage 04/06/2023 Encounter Details Date Type Department Care Team ([facility] st Contact Info) Description 04/06/2023 Telephone [facility] [address] [place] [address] Kristi Warren ANP [address] [place] [address] Nurse Triage Social History Tobacco Use Types [...] The caller accepted this outcome Patient speaks divehi documented in this encounter Plan of Treatment Upcoming Encounters Date Type Department Care Team (Late st Contact Info) Description 08/21/2025 9:00 AM EST Office Visit [facility] [address] [place] [address] Kristi Warren ANP [address] [place] [address] documented as of this encounter Visit Diagnoses Not on filedocumented in this encounter Care Teams Marine Design Engineer Relationship Specialty Start Date End Date Kristi Warren ANP [address] [place] [address] PCP - General Family Medicine 03/24/20 [facility] 08/09/24 12/19/24 [facility] 12/09/24 documented as of this encounter
--- OUTSIDE RECORDS SUMMARY | 2025-08-08 15:12 | XMS_ITS | Data Portability ---
Author Organization [facility], Main Office Address [address] [facility], [address] [place] [address] Care Team Providers Care Mold Tooling Technician Name Role Phone SAMSON PETERSON - 2ND [...] and Address Organization Details Recorded Time Hypoxia 848343408 Active 2023 Nayely Lucas NP [address] [facility], [address], [place], [address], [facility] 4 10:29:30 Pneumonia 403736373 Active 2023 Nayely Lucas NP [address] [facility], [address], [place], [address], [facility] 4 10:29:34 Acute respiratory failure 50667102 Active 2023 Nayely Lucas NP [address] [facility], [address], [place], [address], [facility] 4 10:29:54 Pneumothorax 80712110 Active 2023 Nayely Lucas NP [address] [facility], [address], [place], [address], [facility] 4 10:30:00 Septic shock 77658105 Active 2023 Nayely Lucas NP [address] [facility], [address], [place], [address], [facility] 4 10:30:21 Metabolic encephalopathy 04026239 Active 2023 Nayely Lucas NP [address], [address], [place], [address], [facility] 4 10:30:35 Impaired cognition 039732157 Active 2023 Nayely Lucas NP [address], [place], [address], [facility] 4 10:30:50 Traumatic hematuria 51997990 Active 2023 Nayely Lucas NP [address], [place], [address], [facility] 4 10:32:30 Closed fracture of rib 02034338 Active 2023 Nayely Lucas NP [address], [place], [address], [facility] 4 10:32:51 Bradycardia 07348016 Active 2023 Nayely Lucas NP [address], [address], [place], [address], [facility] 4 10:33:18 Hypertensive disorder 23484585 Active 2023 Nayely Lucas NP [address], [place], [address], [facility] 4 10:33:26 Hyperlipidemia 57790805 Active 2023 Nayely Lucas NP [address], [place], [address], [facility] 4 10:33:47 Type 2 diabetes mellitus 55586715 Active 2023 Nayely Lucas NP [address], [place], [address], [facility] 4 10:33:55 Tyufv-ye-hwohg ic renal failure 585422956 Active 2023 Nayely Lucas NP [address], [address], [place], [address], [facility] 4 10:34:44 Coronary arterioscleros is 19074920 Active 2023 Nayely Lucas, CECILY [address] [facility], [address], [place], [address], [facility] 4 10:34:53 Problem Notes None recorded. [...] Not Available Not Available Not Available [employer] [place] Lite kit USE DIRECTED TO TEST BLOOD [...] Not Available Not Available [employer] Sherley [address] [place] USE DIRECTED SCAN EVERY 8 HOURS 07/03 completed Not Available Not Available Not Available Vitals Date Recorded Body weight Heart rate Respiratory rate Body temperature Oxygen saturation Oxygen saturation in Arterial blood by Pulse oximetry Systolic And Diastolic Provider Name and Address Organization Details Last Updated DateTime 4 19050.5 6 g 77 /min 18 /min 98 [degF] 98 % 98 % 132/72 mm[Hg] Nayely Lucas NP [address] [facility], [address], [place], [address], [facility] 4 19:37:18 Date Recorded Heart rate Respiratory rate Body temperature Oxygen saturation Oxygen saturation in Arterial blood by Pulse oximetry Systolic And Diastolic Provider Name and Address Organization Details Last Updated DateTime 4 52 /min 18 /min 98 [degF] 98 % 98 % 116/66 mm[Hg] ALEC LIRA NP [address] [facility], [address], [place], [address], [facility] 4 12:47:24 Date Recorded Systolic And Diastolic Provider Name and Address Organization Details Last Updated DateTime 07/03/2024 119/69 mm[Hg] Desean Galvez MD [address] [facility], [facility] [address], [place], [address], [facility] 07/03/2024 13:36:50 Date Recorded Heart rate Respiratory rate Body temperature Oxygen saturation Oxygen saturation in Arterial blood by Pulse oximetry Systolic And Diastolic Provider Name and Address Organization Details Last Updated DateTime 4 52 /min 17 /min 98.1 [degF] 97 % 97 % 112/60 mm[Hg] ALEC LIRA NP [address] [facility], [address], [place], [address], [facility] 4 12:29:58 Date Recorded Body weight Heart rate Respiratory rate Body temperature Oxygen saturation Oxygen saturation in Arterial blood by Pulse oximetry Systolic And Diastolic Provider Name and Address Organization Details Last Updated DateTime 4 43549.9 3 g 70 /min 18 /min 98 [degF] 97 % 97 % 124/68 mm[Hg] Nayely Lucas NP [address] [facility], [facility] [address], [place], [address], [facility] 4 13:19:54 Social History Question Answer Notes LastModified by Organizat ion Details LastModified Time Tobacco Smoking Status Former Smoker Nayely Lucas NP [address] [facility], [address], [place], [address], [facility] 06/26/2024 11:48:17 Do You Have An Advance Directive? No Information not available 06/26/2024 What Is Your Code Status? Full Code Wants To Be Full Code Information not available 06/26/2024 Where Do You Live? Apartment Lives On 7th Floor, Elevator In Building Information not available 06/26/2024 Do You Have A Medical Power Of Manager Of School? No Information not available 06/26/2024 What Was [...] ICD10 Code Diagnosis IMO Codes Diagnosis Note [id number] Nayely Lucas NP [address] [address] 06/26/2024 09:27:14 07/01/2024 14:09:08 Acute respiratory failure 71934315 J96.00 see above Septic shock 66156421 R6 5.21 resolved and hypothermi a resolved with care and fluidssee above Pneumonia 991175607 J18. 9 felt likely due to aspiration pna with acute resp failure, septic shock, hypoxia, and pneumothor ax required icu careresolv ed with abx and felt improved no longer on abx or x3ptummmqi l 2 puffs prn qidseen by speech-nila olmos speech herediet: modified texture, thin liquidsmon itor cbc weeklymoni tor for resp distress, vitals, reoccurenc e Hypoxia 791259646 R09.02 see above Pneumothorax 96018409 J9 3.9 pt with pneumothor ax and felt closed rib frac per summarytyl prn painmonito r for reoccurenc e Closed fra cture of rib 44736257 S22.39XD felt resolvedpt with pneumothor ax and felt closed rib frac per summarytyl prn painmonito r for reoccurenc e, resp distress Traumatic hematuria 9556 7008 R31.9 Hematuria resolved, thought to be from traumatic insertion. He was seen by Urology, and had CBI. Crowder catheter was removed 06/21, voiding well sincemonit or for diff urination Impaired cognition 91097 6002 R41.89 possible dementia? cognition improved during hospitaliz ationfelt related to metabolic encephalop athyBIMS 07/23 today, monitor for improvemen the is very clear about full code for molst todaywill monitor for need to invoke with met encephalop athy improvingm onitor for changes Metabolic encephalopathy 28485653 G93.41 possible dementia? cognition improved during hospitaliz ationfelt related to metabolic encephalop athyquetia pine 12.5 mg po bid prn agitationt hiamine 100 mg po dialy started in hosptrazod one 50 mg po at supper dailymonit or for changes Acute-on-c hronic renal failure 079150495 N17.9 SUSHILA resolved with tx and fluidsmoni tor with history of CKDbmp weekly Hypertensive disorder 38 178353 I10 pt with hypotensio n initially with [...] as needed Type 2 saji betes mellitus 85778015 E11.9 insulin sliding scalemonit or BS tid and acmonitor Ha1c prn Hyperlipidemia 63759086 E78.5 atorvastat in 40 mg po qhsmonitor Coronary arteriosclerosis 28202262 I25.10 atorvastat in 40 mg po qhsmetopro lol reduced dose to 25mg BID with holding parameters Eliquis 5 mg BID per cardiology for afibfollow with cards outpt prnmonitor Electrolyte imbalance 10 3591143 E87.8 imbalance of electrolyt es in hosppotass ium phosphates packet po bid 280-160-25 0 MGmonitor bmp weekly Asthenia 45537069 R53.1 pt with asthenia sp found downPT OT eval and treatmonit or Bradycardia 82744191 R00 .1 bradycardi a with VT, SVT and afibmetopr olol reduced to 25 mg po bidmonitor for reoccurenc e, vitalsbmp weekly x3 weeks Thyroid st imulating hormone level above reference range 180673600 R94.6 tsh elevated in hosp free t 4 0.73, tsh 8.38unclea r if hx of thyroid disease or newnot on meds at this timewill recheck tsh and free t4 next weekmonito r hr and bp daily x 2 weeks Neck pain 99792902 M54.2 reports some mid neck painxray done in hospital start lidocaine patch daily in amtyl prnmonitor Cigarette smoker 1172568 7 F17.210 reports he is a smoker for >12yrs and is quittinghe would like NRT patch today, reports urges to smoke06/26 start 7 mg nicotine patch daily, off at nightmonit or for need Falls 906154879 R29.6 found on ground with fallsuppor tive carept ot eval and treatwalke r or cane at baselinemo nitor [id number] Nayely Lucas NP [address] [place] [address] 07/01/2024 12:53:58 07/02/2024 14:42:53 Pneumonia 134901345 J18.9 felt likely due to aspiration pna with acute resp failure, septic shock, hypoxia, and pneumothor ax required icu careresolv ed with abx and felt improved no longer on abx or y8scstwiws l 2 puffs prn qidseen by speech-nila olmos speech herediet: modified texture, thin liquidsmon itor cbc weekly to trend for infectionm onitor for resp distress, vitals, reoccurenc e Acute resp iratory failure 28542440 J96.00 see above Septic shock 37854194 R6 5.21 resolved and hypothermi a resolved with care and fluidssee above Hypoxia 281352665 R09.02 see above Pneumothorax 46735029 J9 3.9 pt with pneumothor ax and felt closed rib frac per summarytyl prn painmonito r for reoccurenc e Closed fra cture of rib 63800486 S22.39XD felt resolvedpt with pneumothor ax and felt closed rib frac per summarytyl prn painmonito r for reoccurenc e, resp distress Asthenia 87315606 R53.1 pt with asthenia sp found downPT OT eval and treatmonit or Traumatic hematuria 9556 7008 R31.9 Hematuria resolved, thought to be from traumatic insertion. He was seen by Urology, and had CBI.Crowder catheter was removed 06/21, voiding well sincemonit or for diff urination Impaired cognition 72712 6002 R41.89 possible dementia? cognition improved during hospitaliz ationfelt related to metabolic encephalop athyBIMS 07/23, monitor for improvemen the is very clear about full code for [facility] monitor for need to invoke with met encephalop athy improvingm onitor for changes Metabolic encephalopathy 47285485 G93.41 possible dementia? cognition improved during hospitaliz ationfelt related to metabolic encephalop athycontqu etiapine 12.5 mg po bid prn agitationt hiamine 100 mg po dialy started in hosptrazod one 50 mg po at supper dailymonit or for changes Acute-on-c hronic renal failure 963084642 N17.9 SUSHILA resolved with tx and fluidslabs as aboveavoid nephrotoxi c medsmonito r with history of CKDbmp weekly Hypertensive disorder 38 040179 I10 pt with hypotensio n initially with [...] 2 weeksadjus t as needed Type 2 asji betes mellitus 81162177 E11.9 BS stable 115-214con tinsulin sliding scalemonit or BS tid and acmonitor Ha1c prn Hyperlipidemia 37002740 E78.5 atorvastat in 40 mg po qhsmonitor Coronary arteriosclerosis 14574770 I25.10 atorvastat in 40 mg po qhsmetopro lol reduced dose to 25mg BID with holding parameters Eliquis 5 mg BID per cardiology for afibfollow with cards outpt prnmonitor Electrolyte imbalance 10 3779672 E87.8 imbalance of electrolyt es in hosppotass ium phosphates packet po bid 280-160-25 0 MGmonitor bmp weekly Bradycardia 03031091 R00 .1 bradycardi a with VT, SVT and afibmetopr olol reduced to 25 mg po bidmonitor for reoccurenc e, vitalsbmp weekly x3 weeks Thyroid st imulating hormone level above reference range 106304907 R94.6 tsh elevated in hosp free t 4 0.73, tsh 8.38unclea r if hx of thyroid disease or newnot on meds at this timewill recheck tsh and free t4 next weekmonito r hr and bp daily x 2 weeks Neck pain 77772764 M54.2 reports some mid neck painxray done in hospital start lidocaine patch daily in amtyl prnmonitor Cigarette smoker 3251464 7 F17.210 reports he is a smoker for >12yrs and is quittinghe would like NRT patch, reports urges to smoke7 mg nicotine patch daily, off at night, started on 06/26 heremonito r for need Falls 877936582 R29.6 found on ground with fall on 06/30 no injuriessu pportive carept ot eval and treatwalke r or cane at baselinemo nitor [id number] ALEC LIRA NP [facility] [address] [place] [address] 07/02/2024 08:52:00 07/03/2024 11:47:02 Pneumonia 567225268 J18.9 felt likely due to aspiration pna with acute resp failure, septic shock, hypoxia, and pneumothor ax required icu careresolv ed with abx, weaned off O3wucriybw l 2 puffs qid prn available for SOB, coughRefer red to SALES AND SERVICE TECHNICIAN due to concern of aspiration Continue modified diet, thin liquids; advance as honey.monito r cbc weekly to trend for infection - does not appear order is in place, will order q mon. x 3monitor for resp distress, vitals, reoccurenc e [place] 688473144 R29.6 Found on ground with fall on 06/30 no injuriesWo rking with PT OTMonitor safety Acute resp iratory failure 80327938 J96.00 see above Septic shock 30893326 R6 5.21 resolved and hypothermi a resolved with care and fluidssee above Hypoxia 149289726 R09.02 see above Pneumothorax 51373901 J9 3.9 pt with pneumothor ax and felt closed rib frac per summarytyl prn painmonito r for recurrence Closed fra cture of rib 86750920 S22.39XD felt resolvedpt with pneumothor ax and felt closed rib frac per summarytyl prn painmonito r for reoccurenc e, resp distress Asthenia 58507228 R53.1 Very deconditio eryn due to hospitaliz ation and acute illnessPT OT eval and treatGoal is to return home. Traumatic hematuria 9556 7008 R31.9 Hematuria resolved, thought to be from traumatic insertion. He was seen by Urology, and had CBI.Crowder catheter was removed 06/21, voiding well sincemonit or for diff urination Impaired cognition 56070 6002 R41.89 possible dementia? cognition improved during hospitaliz ationfelt related to metabolic encephalop athyBIMS 07/23, monitor for improvemen the is very clear about full code for molstwill monitor for need to invoke with met encephalop athy improvingm onitor for changes Metabolic encephalopathy 22517349 G93.41 possible dementia? cognition improved during hospitaliz ationfelt related to metabolic encephalop athycontqu etiapine 12.5 mg po bid prn agitationt hiamine 100 mg po dialy started in hosptrazod one 50 mg po at supper dailymonit or for changes Acute-on-c hronic renal failure 118000407 N17.9 SUSHILA resolved with tx and fluidsNo lab order seen in [facility], will add BMP q wed. x 3avoid nephrotoxi c medsmonito r with history of CKDbmp weekly Hypertensive disorder 38 980234 I10 pt with hypotensio n initially with [...] as needed Type 2 saji betes mellitus 40803203 E11.9 BS stable, readings mostly 100scontin sulin sliding scalemonit or BS tid and acmonitor Ha1c prn Hyperlipidemia 65993376 E78.5 atorvastat in 40 mg po qhsmonitor Coronary arteriosclerosis 33248179 I25.10 atorvastat in 40 mg po qhsmetopro lol reduced dose to 25mg BID with holding parameters Eliquis 5 mg BID per cardiology for afibLasix and amlodipine for BP controlfol low with cards outpt prnmonitor Electrolyte imbalance 10 3594701 E87.8 imbalance of electrolyt es in hosppotass ium phosphates packet po bid 280-160-25 0 MGmonitor bmp weekly Bradycardia 57400423 R00 .1 bradycardi a with VT, SVT and afibmetopr olol reduced to 25 mg po bidcontinu e eliquis 5 mg bid for ACmonitor for recurrence , vitalsbmp weekly x3 weeks Thyroid st imulating hormone level above reference range 447847276 R94.6 tsh elevated in hosp free t 4 0.73, tsh 8.38unclea r if hx of thyroid disease or newnot on meds at this timewill recheck tsh and free t4 next weekmonito r hr and bp daily x 2 weeks Neck pain 86863969 M54.2 reports some mid neck painxray done in hospital9/ 18 started lidocaine patch daily in amtyl prnmonitor Cigarette smoker 2779119 7 F17.210 reports he is a smoker for >12yrs and is quittinghe would like NRT patch, reports urges to smoke7 mg nicotine patch daily, off at night, started 06/26 heremonito r for need to continue [id number] Desean Galvez MD [address] [address] 07/03/2024 13:35:04 07/04/2024 10:58:48 Metabolic encephalopathy 44259839 G93.41 see HPIimpaire d cognition felt secondary to septic shock with question of underlying dementiamo nitor level of insightpsy ch eval prnrequire d seroquel in hospital Pneumonia 733105747 J15. 8 respirator y failure due to pneumonian ow completed Abxmonitor respirator y status with recent pneumothor ax [place] 874011112 R29.6 fall [facility] erapy followingm onitor fall risk Septic shock 90520661 R6 5.21 secondary to pneumonian ow completed Abx Closed fra cture of rib 08216277 S22.39XD noted on imaging age indetermin atemonitor for pain and respirator y function Asthenia 13175432 R53.1 PT OT eval and treatmonit or fall risk and need for increased support in community Impaired cognition 99205 6002 R41.89 see abovemonit or need to invoke Acute-on-c hronic renal failure 377257342 N17.9 ARF on CRFmonitor renal functionav oid nephrotoxi c meds as ablenephro consult prn Hypertensive disorder 38 158140 I10 norvasc 10 mg qdmetoprol ol 25 mg bidlasix 40 mg qdmonitor bp with metoprolol dose adjusted Type 2 saji betes mellitus 37202626 E11.9 carrying dxcurrentl y on SSmonitor blood glucose Hyperlipidemia 34659694 E78.49 lipitor 40 mg qd continued Coronary arteriosclerosis 13672845 I25.10 hx of cardiac arrestmeto prolol 25 mg bidlipitor 40 mg qdon eliquis for a fibmonitor for sxupdate cards with concerns Bradycardia 72014396 R00 .1 eval by cards in hospital with metoprolol dose reduced now onmetoprol ol 25 mg bidmonitor rateupdate cards with concerns Thyroid st imulating hormone level above reference range 636360701 R94.6 recent elevated tshnot on synthroidr epeat in 4 weeks [id number] ALEC LIRA NP [facility] [address] [place] [address] 07/09/2024 12:28:47 07/10/2024 10:47:27 Pneumonia 921121797 J18.9 Otto likely due to aspiration pna (also with acute resp failure, septic shock, hypoxia, and pneumothor ax requiring icu care)Resol kurt with abx, weaned off N9Frplndio l 2 puffs qid prn remains available for SOB, cough - has not neededRefe rred to SALES AND SERVICE TECHNICIAN due to concern of aspiration Continue modified diet, thin liquids; advance as honey.WBC now WNRmonitor for resp distress, vitals, reoccurenc e [place] 289957717 R29.6 Found on ground with fall on 06/30 no injuriesWo rking with PT OTMonitor safety Pneumothorax 63749658 J9 3.9 pt with pneumothor ax and felt closed rib frac per summarytyl prn painmonito r for recurrence Closed fra cture of rib 19988488 S22.39XD felt resolvedpt with pneumothor ax and felt closed rib frac per summarytyl prn painmonito r for reoccurenc e, resp distress Asthenia 78733478 R53.1 Very deconditio eryn due to hospitaliz ation and acute illnessPT OT eval and treatGoal is to return home. Impaired cognition 49393 6002 R41.89 possible dementia? cognition improved during hospitaliz ationfelt related to metabolic encephalop athyBIMS 07/23, monitor for improvemen the is very clear about full code for [facility] monitor for need to invoke with met encephalop athy improvingm onitor for changes Metabolic encephalopathy 23161355 G93.41 possible dementia? cognition improved during hospitaliz [...] itor for changes Acute-on-c hronic renal failure 988813867 N17.9 SUSHILA resolved with tx and fluidsChec k BMP q wed. x 3, add Phos level as still on K and Na Phosphate packet bidavoid nephrotoxi c medsmonito r with history of CKDMaintai n hydration Hypertensive disorder 38 513556 I10 VSS.Meds adjusted in hosp. per CardsConti nue:Metopr olol 25mg BID with holding parameters (reduced dose)Amlod ipine 10 mg po dailyLasix 40 mg po dailymonit or vs with bp daily x 2 weeksadjus t as needed Type 2 saji betes mellitus 00910384 E11.9 BS stable, readings mostly 100scontin sulin sliding scalemonit or BS tid and acmonitor Ha1c prn Hyperlipidemia 98303080 E78.5 atorvastat in 40 mg po qhsmonitor Coronary arteriosclerosis 04403391 I25.10 atorvastat in 40 mg po qhsmetopro lol reduced dose to 25mg BID with holding parameters Eliquis 5 mg BID per cardiology for afibLasix and amlodipine for BP controlfol low with cards outpt prnmonitor Electrolyte imbalance 10 2741021 E87.8 imbalance of electrolyt es in hosppotass ium phosphates packet po bid 280-160-25 0 MGmonitor bmp weekly, add Phos level as well. Bradycardia 08746784 R00 .1 bradycardi a with VT, SVT and afibmetopr olol reduced to 25 mg po bidcontinu e eliquis 5 mg bid for ACmonitor for recurrence , vitalsbmp weekly x3 weeks Thyroid [address] imulating hormone level above reference range 536289783 R94.6 tsh elevated in hosp free t 4 0.73, tsh 8.38unclea r if hx of thyroid disease or newnot on meds at this timeRechec k tsh and free t4 on 07/03 - still elevated 8.67, FT4 1.16.Will not add po supplement ation at this time.Can consider trending labs along with a FT3 if stays [facility] Neck pain 25054401 M54.2 reports some mid neck painxray done in hospital started lidocaine patch daily in amtyl prnmonitor Cigarette smoker 3579016 7 F17.210 reports he is a smoker for >12yrs and is quittinghe would like NRT patch, reports urges to smoke7 mg nicotine patch daily, off at night, started 06/26 heremonito r for need to continue [id number] Nayely Lucas NP [facility] [address] [place] [address] 07/10/2024 13:19:10 07/11/2024 10:21:37 Pneumonia 181838170 J18.9 Otto likely due to aspiration pna (also with acute resp failure, septic shock, hypoxia, and pneumothor ax requiring icu care)Resol kurt with abx, weaned off M5Wnmbrpgy l 2 puffs qid prn remains available for SOB, cough - has not needed hereReferr ed to SALES AND SERVICE TECHNICIAN due to concern of aspiration Continue modified diet, thin liquids; advance as honey.WBC WNR on 07/03will follow with labs this weekmonito r for resp distress, vitals, reoccurenc ecbc and bmp [place] 710455000 R29.6 Found on ground with fall on 06/30 no injuriesWo rking with PT OTMonitor safety Pneumothorax 72459918 J9 3.9 pt with pneumothor ax and felt closed rib frac per summarytyl prn painmonito r for recurrence Closed fra cture of rib 70351875 S22.39XD felt resolvedpt with pneumothor ax and felt closed rib frac per summary, no complicati ons notedtyl prn painmonito r for reoccurenc e, resp distress Asthenia 17049576 R53.1 Very deconditio eryn due to hospitaliz ation and acute illnessPT OT eval and treatGoal is to return home. Impaired cognition 45772 6002 R41.89 possible dementia? cognition improved during hospitaliz ationfelt related to metabolic encephalop athyBIMS 07/23, monitor for improvemen t, repeat he is very clear about full code for [facility] monitor for need to invoke with met encephalop athy improvingm onitor for changes Metabolic encephalopathy 21913055 G93.41 possible dementia? cognition improved during hospitaliz ationfelt related to metabolic encephalop nymbajtz64 /2quetiapi ne 12.5 mg po bid prn agitation for 14 days and re-evalthi amine 100 mg po dialy started in hosptrazod one 50 mg po at supper daily(pt was on serequel 12.5 mg po bid and qhs sched which were dc'd today, unclear where this order is from)will leave prn Acute-on-c hronic renal failure 754152058 N17.9 SUSHILA resolved with tx and fluidsChec k BMP q wed. x 3, add Phos level as still on K and Na Phosphate packet bidavoid nephrotoxi c medsmonito r with history of CKDMaintai n hydration Hypertensive disorder 38 910545 I10 vitals stableMeds adjusted in hosp. per CardsCont: Metoprolol 25mg BID with holding parameters (reduced dose)Amlod ipine 10 mg po dailyLasix 40 mg po dailymonit or vs with bp daily x 2 weeksadjus t as needed Type 2 saji betes mellitus 24954727 E11.9 BS 98-201, overall well controlled continsuli n sliding scalemonit or BS tid and acmonitor Ha1c prn Hyperlipidemia 97581486 E78.5 atorvastat in 40 mg po qhsmonitor Coronary arteriosclerosis 16345043 I25.10 atorvastat in 40 mg po qhsmetopro lol reduced dose to 25mg BID with holding parameters Eliquis 5 mg BID per cardiology for afibLasix and amlodipine for BP controlfol low with cards outpt prn, will need appt outptmonit or Electrolyte imbalance 10 5900808 E87.8 imbalance of electrolyt es in hospcontpo tassium phosphates packet po bid 280-160-25 0 MGmonitor bmp weekly, add Phos level as well.will request labs baylee Bradycardia [id number] R00 .1 bradycardi a with VT, SVT and afibmetopr olol reduced to 25 mg po bid in hospcontin ueeliquis 5 mg bid for ACmonitor for recurrence , vitalsbmp weekly x3 weeks Thyroid st imulating hormone level above reference range 443390413 R94.6 tsh elevated in hosp free t 4 0.73, tsh 8.38unclea r if hx of thyroid disease or newnot on meds at this timeRechec k tsh and free t4 on 07/03 - still elevated 8.67, FT4 1.16.Will not add po supplement ation at this time.Can consider trending labs along with a FT3 if stays [facility] Neck pain 94924612 M54.2 resolvedre ports some mid neck painxray done in hospitalco ntlidocain e patch daily in amtyl prnmonitor Cigarette smoker 8537069 7 F17.210 reports he is a smoker for >12yrs and is quitting7 mg nicotine patch daily, off at nightmonit or for need to continue Septic shock 90817518 R6 5.21 secondary to pneumonian ow completed Abxcbc and bmp baylee Health Concerns Section Related Observation LastModified by Organization Detai ls LastModified Time None Recorded Concern Status LastModified by Organization Details LastModified Time None Recorded Advance Directives Directive N: Payers Insurance Date Sequence Insurance Name Policy Number Policy Pinzon Covered Member ID Pinzon Member ID Guarantor Name 07/10/2024 1 [facility] - DOS ON OR AFTER 2023 - MEDICARE ADVANTAGE [place] (MEDICARE REPLACEMENT/ADV ANTAGE - PPO) Albert Posada [id number] Albert Posada Notes Date Note Type Note [...] hx of PEA arrest who presented to [facility] as a XAT 1 trauma after being [...] resolved and no signs of documented Dementia. Otto could be multifactorial delirium, unclear if superimposed [...] a full code. Nayely Lucas NP [address] [facility], [address], [place], [address], [facility] 07/01/2024 19:52:33 07/02/2024 text/html Skyler is seen today for an acute visit. He is a 74 yo male, recently admitted to [facility] from the hospital for continued [...] bradycardia, pnaFull code. ALEC LIRA NP [address] [facility], [address], [place], [address], [facility] 07/02/2024 13:24:14 07/03/2024 text/html Patient is a [...] dose reduced. ARF improved with supportive care Zimbabwean speaking director of the biophysics facility present however patient can communicate in romanian PMH significant forcad hx cardiac arrestcrfdma fibhtn admit to facility for continued care and therapy eval and treat Desean Galvez MD [address] [facility], [address], [place], [address], [place] [employer] [facility] 07/03/2024 14:16:59 07/09/2024 text/html Skyler is seen today for an acute visit. He is a 74 yo male, recently admitted to [facility] from the hospital for continued [...] bradycardia, pnaFull code. ALEC LIRA NP [address] [facility], [address], [place], [address], [facility] 07/09/2024 13:06:58 07/10/2024 text/html Albert is seen today for an acute visit. PMH: coronary artery disease, CKD, Type 2 diabetes, with documented hx of PEA arrest, afib, bradycardia, pna Pt is a 74 yo male, recently admitted to [facility] from the hospital for continued care and rehab after an admission requiring ICU care related to a fall, infection, SUSHILA, NSVT/VT, and delirium. He is inquiring about going home and found a milk pasteurizer to help at home care in which Viktoria is at bedside. After reviewing his recent hospitalization and needs with Albert and SIGNAL TECHNICIAN all in agreement to plan for discharge on Monday when SIGNAL TECHNICIAN, nursing, PT/OT, and pcp and cardiology appts can be set up. This will give him a few more days to be monitored with recent changes in meds and vitals aswell as to work with therapy to get stronger. wood processing worker at bedside and in agreement. Since [...] 07/23 Full code. Nayely Lucas NP [address] [facility], [address], [place], [address], [facility] 07/10/2024 19:21:30
--- OUTSIDE RECORDS SUMMARY | 2025-08-08 15:12 | XMS_ITS | Encounter Summary ---
Author Organization [employer] Address [address] [facility] 7t [place] [address] Care Team Providers Care Motor Route Carrier Name Role Phone Kristi Warren Primary Care Provider [phone] Reason for Visit * Reason Onset Date Comments ER Follow-up 04/22/2025 fyi 04/22/2025 Encounter Details Date Type Department Care Team (Late st Contact Info) Description 04/22/2025 Telephone [facility] MEDICINE [address] [place], [place] [phone] Kristi Warren ANP [address] [place], [place] [phone] ER Follow-up; Social History Tobacco Use Types [...] 2:30pm 04/22/25. Received call back from Ivette Spiritual Care Coordinator to Dr Almazan. Pt had nurse visit last Monday04/18/25 and was instructed to hold metoprolol and furosemide. His next appt is 04/25/25 with CECILY Shirley at [facility] cardiology, and has Echo scheduled for 05/01/25. [...] office who is requesting office note from [facility] Cardiology visit on 04/18/25.Per [facility], only nursing note available for review (copied below). Per note, pt to hold metoprolol and lasix (already being held). Called [facility] Cardiology and left message for medical laboratory scientist requesting call back to see if longer [...] : Date: 04/19/25 Hospital: Urgent care in [place] Seen for: neck pain Symptomatic No Pt was prescribed baclofen *sick on site visit scheduled for 04/[address] Okeefe has been canceled due to noty being needed. documented in this encounter Plan of Treatment Upcoming Encounters Date Type Department Care Team (Late st Contact Info) Description 08/21/2025 9:00 AM EST Office Visit [facility] MEDICINE [address] [place] [address] Kristi Warren ANP [address] [place], [place] [phone] documented as of this encounter Goals Goal [...] documented as of this encounter Care Teams Motor Route Carrier Relationship Specialty Start Date End Date Kristi Warren ANP [address] [place] [address] PCP - General Family Medicine 03/24/20 [facility] 12/09/24 documented as of this encounter
--- OUTSIDE RECORDS SUMMARY | 2025-08-08 15:12 | XMS_ITS | Encounter Summary ---
Author Organization [employer] Address [address] 7t [place] [address] Care Team Providers Care Hvac Project Engineer Name Role Phone Kristi Warren Primary Care Provider [phone] Encounter Details Date Type Department Care Team (Late st Contact Info) Description 08/15/2024 Telephone [facility] MEDICINE [address] [place], [place] [phone] Kristi Warren ANP [address] [place] [address] Social History Tobacco Use Types Packs/Day Years [...] 11:11 AM EST TC from Viktoria William RAILROAD TRACK MECHANIC of pt stated that pt doesn't have no more meds due to pt is taking doseof trazodone of 7 days in 1 night also taking a lot of gabapentin in a Day and regular medication pt is crushing them and put in on sink is no taking none of his medication. Pt used [facility] and he is not due until August 30. [facility] requesting a call from PCP to discuss pt medication. PCP DR. Warren documented in this encounter Plan of Treatment Upcoming Encounters Date Type Department Care Team (Late st Contact Info) Description 08/21/2025 9:00 AM EST Office Visit [facility] MEDICINE [address] [place], [place] [phone] Kristi Warren ANP [address] [place] [address] documented as of this encounter Goals Goal [...] documented as of this encounter Care Teams Hvac Project Engineer Relationship Specialty Start Date End Date Kristi Warren ANP [address] [place] [address] PCP - General Family Medicine 03/24/20 [facility] 08/09/24 12/19/24 [facility] 12/09/24 documented as of this encounter
--- OUTSIDE RECORDS SUMMARY | 2025-08-08 15:13 | XMS_ITS | Encounter Summary ---
Author Organization [employer] Address [address] [facility] 7t [place] [address] Care Team Providers Care Cloth Picker Name Role Phone Kristi Warren Primary Care Provider [phone] Reason for Visit * Reason Comments Med Refill Encounter Details Date Type Department Care Team (Late Contact Info) Description 11/18/2022 Refill [facility] MEDICINE [address] [place], [place] [phone] Kristi Warren ANP [address] [place], [place] [phone] Type 2 diabetes mellitus with diabetic nephropathy, with long-term current use of insulin ([facility]) (Primary Dx) Social History Tobacco Use [...] Description 08/21/2025 9:00 AM EST Office Visit [facility] MEDICINE [address] [place] [address] Kristi Warren ANP [address] [place] [address] documented as of this encounter Visit Diagnoses Diagnosis Type 2 diabetes mellitus with diabetic nephropathy, with long-term current use of insulin (HCC)- Primary documented in this encounter Care Teams Cloth Picker Relationship Specialty Start Date End Date Kristi Warren ANP [address] [place] [address] PCP - General Family Medicine 03/24/20 [facility] 08/09/24 12/19/24 [facility] 12/09/24 documented as of this encounter
--- OUTSIDE RECORDS SUMMARY | 2025-08-08 15:13 | XMS_ITS | Encounter Summary ---
Author Organization [employer] [facility] Address [address] [facility] 7t [place] [address] Care Team Providers Care Classics Teacher Name Role Phone Kristi Warren Primary Care Provider Encounter Details Date Type Department Care Team (Late Contact Info) Description 10/19/2022 Orders Only [facility] MEDICINE [address] [place] [address] Mona Porras LPN Social History Tobacco Use [...] 08/21/2025 9:00 AM EST Office Visit [facility] MEDICINE [address] [place] [address] Kristi Warren ANP [address] [place], [place] [phone] documented as of this encounter Procedures Procedure Name Priority Date/Time Associated Diagnosis Comments XR FOOT 1-2 VIEWS RIGHT Routine 11/07/2022 11:42 AM EST documented in this encounter Results * XR Foot 1-2 Views Right (11/07/2022 11:42 AM EST) Anatomical Region Laterality Modality Lower Extremities, Foot Right [facility] 11/07/2022 11:4 2 AM EST Narrative 11/09/2022 8:38 PM EST [address] [address] XRay Report Signed Patient: Albert Baeza MR#: [id number] : 1950 Acct:[id number] Age/Sex: 72 / M ADM Date: 11/07/22 Loc: HO.XRAY Attending Dr: Ophelia Hubbard NP Ordering Physician: OPHELIA HUBBARD NP Date of Service: 11/07/22 Procedure(s): XR foot RT 2V Accession Number(s): [id number] cc: OPHELIA HUBBARD NP EXAMINATION: XR FOOT, [...] MD in OV> 11/09/222034 DD/ 1142 TD/TT: Core Manager: ALBERT Procedure Note Donotuseinterpreter, Image - 11/09/[address] [address] XRay Report Signed Patient: Albert BaezaMR#: [id number] : 1950Acct:[id number] Age/Sex: 72 / MADM Date: 11/07/22 Loc: HO.TYRONE Attending Dr: Ophelia Hubbard NP Ordering Physician: OPHELIA HUBBARD NP Date of Service: 11/07/22 Procedure(s): XR foot RT 2V Accession Number(s): [id number] cc: OPHELIA HUBBARD NP EXAMINATION: XR FOOT, [...] MD in OV> 11/09/222034 DD/ 1142 TD/TT: Core Manager: ALBERT Authorkamille Provider Result Type Result Stat [facility] External Provider IMG XR PROCEDURES Edited Result - Final documented in this encounter Visit Diagnoses Not on filedocumented in this encounter Care Teams Classics Teacher Relationship Specialty Start Date End Date Kristi Warren ANP [address] [place] [address] PCP - General Family Medicine 03/24/20 [facility] 08/09/24 12/19/24 [facility] Care 12/09/24 documented as of this encounter
--- OUTSIDE RECORDS SUMMARY | 2025-08-08 15:13 | XMS_ITS | Encounter Summary ---
Author Organization [employer] Address [address] [facility] 7t [place] [address] Care Team Providers Care Starting Sheet Tank Operator Name Role Phone Kristi Warren Primary Care Provider [phone] Reason for Visit * Reason Onset Date Comments Medication Question 07/15/2024 Encounter Details Date Type Department Care Team ([facility] st Contact Info) Description 07/15/2024 Telephone [facility] MEDICINE [address] [place] [address] Kristi Warren ANP 230 [place] [address] Medication Question Social History Tobacco Use Types [...] medications. The pt was recently discharged from [facility] after being in the hospital for a pneumothorax. Viktoria is concerned with the medications that the pt was discharged with and is apprehensive in regards to giving them to the pt. RN spoke with OMERO Song, who is in agreement that the pt can be scheduled for a [facility] appt. This will be forwarded to [facility] for scheduling. * Telephone Encounter - Trace Castaneda - 07/15/2024 8:46 AM EDT Tc from Viktoria from [facility] requesting a call back to compare medications and to see if the provider would like the patient to continue the medication documented in this encounter Plan of Treatment Upcoming Encounters Date Type Department Care Team (Late st Contact Info) Description 08/21/2025 9:00 AM EST Office Visit [facility] MEDICINE [address] [place] [address] Kristi Warren ANP 230 [place] [address] documented as of this encounter Goals Goal [...] documented as of this encounter Care Teams Starting Sheet Tank Operator Relationship Specialty Start Date End Date Kristi Warren ANP 230 [place] [address] PCP - General Family Medicine 03/24/20 [facility] 08/09/24 12/19/24 [facility] 12/09/24 documented as of this encounter
--- OUTSIDE RECORDS SUMMARY | 2025-08-08 15:13 | XMS_ITS | Encounter Summary ---
Author Organization [employer] Address [address] [facility] 7t [place] [address] Care Team Providers Care Unit Tender Name Role Phone Kristi Warren Primary Care Provider [phone] Reason for Visit * Reason Onset Date Comments Durable Medical Equipment 07/27/2023 Encounter Details Date Type Department Care Team (Late st Contact Info) Description 07/27/2023 Telephone [facility] MEDICINE [address] [place] [address] Kristi Warren ANP [address] [place] [address] Durable Medical Equipment Social History Tobacco Use [...] 07/27/2023 3:44 PM EDT Tc from [facility] requesting DME for pt on glucometer kit. Any question contact [facility] documented in this encounter Plan of Treatment Upcoming Encounters Date Type Department Care Team (Late st Contact Info) Description 08/21/2025 9:00 AM EST Office Visit [facility] MEDICINE [address] [place] [address] Kristi Warren ANP [address] [place] [address] documented as of this encounter Visit Diagnoses Not on filedocumented in this encounter Care Teams Unit Tender Relationship Specialty Start Date End Date Kristi Warren ANP [address] [place] [address] PCP - General Family Medicine 03/24/20 [facility] 08/09/24 12/19/24 [facility] Care 12/09/24 documented as of this encounter
--- OUTSIDE RECORDS SUMMARY | 2025-08-08 15:13 | XMS_ITS | Encounter Summary ---
Author Organization [employer] Address [address] [facility] 7t [place] [address] Care Team Providers Care Certified Scrum Master Name Role Phone Kristi Warren Primary Care Provider [phone] Reason for Visit * Reason Onset Date Comments Referral 11/17/2022 Encounter Details Date Type Department Care Team ([facility] st Contact Info) Description 11/17/2022 Telephone [facility] MEDICINE [address] [place] [address] Krsiti Warren ANP [address] [place] [address] Referral Social History Tobacco Use Types Packs/Day [...] from pt requesting a referral for a material flow analyst to have toe nails cut Please contact pt at [phone] documented in this encounter Plan of Treatment Upcoming Encounters Date Type Department Care Team (Late st Contact Info) Description 08/21/2025 9:00 AM EST Office Visit [facility] MEDICINE [address] [place] [address] Kristi Warren ANP [address] [place] [address] documented as of this encounter Visit Diagnoses Not on filedocumented in this encounter Care Teams Certified Scrum Master Relationship Specialty Start Date End Date Kristi Warren ANP [address] [place] [address] PCP - General Family Medicine 03/24/20 [facility] 08/09/24 12/19/24 [facility] 12/09/24 documented as of this encounter
--- OUTSIDE RECORDS SUMMARY | 2025-08-08 15:13 | XMS_ITS | Encounter Summary ---
Author Organization [employer] Address [address] [facility] [address] 7t [place] [address] Care Team Providers Care Barrel Cleaner Name Role Phone Kristi Warren Primary Care Provider [phone] Encounter Details Date Type Department Care Team (Late st Contact Info) Description 05/23/2025 Orders Only [facility] MEDICINE [address] [place], [place] [phone] Kristi Warren ANP [address] [place] [address] Social History Tobacco Use Types Packs/Day Years [...] 08/21/2025 9:00 AM EST Office Visit [facility] MEDICINE [address] [place] [address] Kristi Warren ANP [address] [place] [address] documented as of this encounter Goals Goal [...] documented as of this encounter Care Teams Barrel Cleaner Relationship Specialty Start Date End Date Kristi Warren ANP [address] [place] [address] PCP - General Family Medicine 03/24/20 [facility] 12/09/24 documented as of this encounter
--- OUTSIDE RECORDS SUMMARY | 2025-08-08 15:13 | XMS_ITS | Encounter Summary ---
Author Organization [employer] Address [address] [facility] 7t [place] [address] Care Team Providers Care Instructional Manager Name Role Phone Kristi Warren Primary Care Provider [phone] Encounter Details Date Type Department Care Team ([facility] Contact Info) Description 11/24/2022 Orders Only [facility] MED & PEDS [address] [place], [place] [phone] Amalia Pierre LPN Social History Tobacco Use [...] Visit [facility] MEDICINE [address] [place] [address] Kristi Warren ANP [address] [place] [address] documented as of this encounter Visit Diagnoses Not on filedocumented in this encounter Care Teams Instructional Manager Relationship Specialty Start Date End Date Kristi Warren ANP [address] [place] [address] PCP - General Family Medicine 03/24/20 [facility] 08/09/24 12/19/24 [facility] 12/09/24 documented as of this encounter
--- OUTSIDE RECORDS SUMMARY | 2025-08-08 15:13 | XMS_ITS | Encounter Summary ---
Author Organization [employer] Address [address] [facility] 7t [place] [address] Care Team Providers Care Test Engineering Technician Name Role Phone Kristi Warren Primary Care Provider [phone] Reason for Visit * Reason Comments Med Refill Encounter Details Date Type Department Care Team ([facility] st Contact Info) Description 08/07/2025 Refill [facility] MEDICINE [address] [place], [place] [phone] Kristi Warren ANP [address] [place] [address] Neck pain Social History Tobacco Use Types Packs/Day Years [...] 9:00 AM EST Office Visit [facility] MEDICINE [address] [place] [address] Kristi Warren ANP [address] [place] [address] documented as of this encounter Goals Goal Patient Goal Type Associated Problems Recent Progress Patient-Stated? Author Blood Pressure < 140/90 Blood Pressure 104/70(2024 1:09 PM EDT) No Mike Harris, PharmLourdes Hemoglobin A1c < 7.5 Result Component 6.5( 3:05 PM EDT) No Mike Harris, BennettD documented as of this encounter Visit Diagnoses Diagnosis Neck pain Cervicalgia documented in this encounter Additional Health Concerns Assessment Noted Time PHQ-9 Depression Total Score: 0 01/08/20 1:15 PM EDT documented as of this encounter Care Teams Test Engineering Technician Relationship Specialty Start Date End Date Kristi Warren ANP [address] [place] [address] PCP - General Family Medicine 03/24/20 [facility] 12/09/24 documented as of this encounter
== END 2025-08-08 15:33 | disposition home or self-care (01) ==
LOC: HO.HNS 14:45
PROVIDERS: PCP Nurse Practitioner Primary Care; Visit Provider Neurological Surgery
DX: M47.812 Spondylosis without myelopathy or radiculopathy, cervical region (principal)
CPT/HCPCS: 99213

== ENCOUNTER → 2025-08-08 14:51 | Outpatient (BNV) | payer OTHER, SELFPAY | PROVIDERS: PCP Nurse Practitioner Primary Care; Visit Provider Radiology Diagnostic Radiology | DX: M50.30 Other cervical disc degeneration, unspecified cervical region (principal) | CPT/HCPCS: 72050 ==